=== PATIENT | female | born 1945 | race Caucasian/White ===

== ENCOUNTER → 2016-07-05 | Outpatient (CLI) | payer OTHER ==
[~2016-07-05] MED LIST: ASPI-435 PO; B-COTAB18 PO; CALCTAB5 PO; CLC100X PO; FRS/40 PO; POLY335019 PO; [UNRECOGNIZED DRUG - CODE] TOP
[2016-07-05 10:35] LABS: BLOOD UREA NITROGEN 13 mg/dl (7-18); BUN/CREATININE RATIO 16.9 (10-20); CALCIUM 8.6 mg/dl (8.5-10.1); CARBON DIOXIDE 31 mmol/L (21-32); CHLORIDE 105 mmol/L (98-107); CREATININE 0.76 mg/dl (0.60-1.20); GLUCOSE 93 mg/dl (70-99); POTASSIUM 4.2 mmol/L (3.5-5.1); SODIUM 140 mmol/L (136-145)
[2016-07-05 10:38] LABS: CHOLESTEROL 146 mg/dl (0-200); CHOLESTEROL/HDL RATIO 2.6; HDL CHOLESTEROL 56 mg/dl; LDL CHOLESTEROL CALCULATED 78 mg/dl; TRIGLYCERIDES 59 mg/dl (0-150); VERY LOW DENSITY LIPOPROT CALC 12 mg/dl
== END | disposition home or self-care (01) ==
LOC: C.LAB1850 08:55
PROVIDERS: ATTEND Internal Medicine
DX: Z00.00 Encounter for general adult medical examination without abnormal findings (principal); Z11.59 Encounter for screening for other viral diseases; E78.5 Hyperlipidemia, unspecified; I50.30 Unspecified diastolic (congestive) heart failure

== ENCOUNTER → 2016-08-03 | Outpatient (CLI) | payer OTHER ==
[2016-08-03 16:45] LABS: HEMATOCRIT 34.6 % (37-47); MEAN CELL VOLUME 89.9 fL (80-100); MEAN CORPUSCULAR HEMOGLOBIN 29.9 pg (25-34); MEAN CORPUSCULAR HGB CONC 33.2 g/dl (32-36); MEAN PLATELET VOLUME 10.8 fL (7.4-10.4); PLATELET COUNT 315 K/uL (130-400); RED BLOOD COUNT 3.85 M/uL (4.2-5.4); WHITE BLOOD COUNT 7.12 K/uL (4.8-10.8)
[2016-08-03 17:04] LABS: BLOOD UREA NITROGEN 10 mg/dl (7-18); BUN/CREATININE RATIO 12.9 (10-20); CALCIUM 8.9 mg/dl (8.5-10.1); CARBON DIOXIDE 33 mmol/L (21-32); CHLORIDE 104 mmol/L (98-107); CREATININE 0.76 mg/dl (0.60-1.20); GLUCOSE 95 mg/dl (70-99); POTASSIUM 3.9 mmol/L (3.5-5.1); SODIUM 139 mmol/L (136-145)
[2016-08-03 17:54] LABS: BASO ABS # 0.06 K/uL (0-0.2); BASOPHIL % 0.9 %; COMPLETE YES; EOSINOPHIL % 0.9 %; LARGE GRANULAR LYMPH ABSOLUTE 2.12 K/uL; LARGE GRANULAR LYMPHOCYTE % 29.8 %; LYMPH ABS # 1.31 K/uL (1.2-3.4); LYMPHOCYTE % 18.4 %; NEUTROPHILS % 36.8 %
== END | disposition home or self-care (01) ==
LOC: C.LAB1850 15:06
PROVIDERS: ATTEND Physician Assistant
DX: I50.30 Unspecified diastolic (congestive) heart failure (principal)

== ENCOUNTER → 2016-09-16 | Outpatient (CLI) | payer OTHER ==
--- NOTE | 2016-09-16 13:27 | MAMMOGRAPHY REPORT ---
BILATERAL DIGITAL SCREENING MAMMOGRAM WITH CAD: 09/16/2016 CLINICAL HISTORY: Routine screening. TECHNIQUE: Current study was also evaluated with a Computer Aided Detection (CAD) system. Bilateral CC and MLO views were obtained. COMPARISON: Comparison is made to exams dated: 09/11/2015 mammogram, 09/09/2014 mammogram, 09/06/2013 justen mogram, 09/05/2012 mammogram, 09/05/2011 mammogram, and 09/01/2010 mammogram - [facility] . BREAST COMPOSITION: The tissue of both breasts is heterogeneously dense, which may obscure small mas ses. FINDINGS: There is a 10 mm mass within the right 6:00 breast, for which spot compression tomosynthes is views and possible breast ultrasound are recommended for further evaluation. The remainder of both breasts are stable compared to prior exams, without suspicious masses, calcific ations, or areas of architectural distortion noted. IMPRESSION: ACR BI-RADS CATEGORY 0: INCOMPLETE EVALUATION: NEED ADDITIONAL IMAGING EVALUATION Right 6:00 breast mass, for which additional imaging evaluation is recommended. The patient will be called to schedule an appointment. Approximately 10% of breast cancers are not detected with mammography. A negative mammographic report should not delay biopsy if a clinically suggestive mass is present. Lissett Fraire M.D. ah/:09/16/2016 10:49:54 [employer] Manager: Bisi PASTOR(Emperatriz)(M), [facility] letter sent: Addl Imaging 0 BI-RADS Code: ACR BI-RADS Category 0: Incomplete Evaluation: Need Additional Imaging Evaluation
== END | disposition home or self-care (01) ==
LOC: C.MAMM 09:58
PROVIDERS: ATTEND Obstetrics & Gynecology
DX: Z12.31 Encounter for screening mammogram for malignant neoplasm of breast (principal); N63 Unspecified lump in breast

== ENCOUNTER → 2016-09-30 | Outpatient (CLI) | payer OTHER ==
--- NOTE | 2016-09-30 12:31 | MAMMOGRAPHY REPORT ---
UNILATERAL RIGHT DIGITAL DIAGNOSTIC MAMMOGRAM TOMOSYNTHESIS AND TARGETED RIGHT ULTRASOUND: 09/30/2016 CLINICAL HISTORY: Callback from screening mammogram for right breast mass. TECHNIQUE: Breast tomosynthesis in addition to standard 2D mammography was performed. Spot compress ion right CC and MLO 2-D and tomosynthesis images were obtained. COMPARISON: Comparison is made to exams dated: 09/16/2016 mammogram, 09/11/2015 mammogram, 09/09/2014 ma mmogram, 09/06/2013 mammogram, 09/05/2012 mammogram, and 09/05/2011 mammogram - [facility]. BREAST COMPOSITION: The tissue of the right breast is heterogeneously dense, which may obscure small masses. FINDINGS: Spot compression views of the right breast demonstrate an oval partially circumscribed and partially obscured 10 mm mass within the right 6:00 breast. Targeted ultrasound was performed of the area of the mammographic mass. In the right 6:30 periareola r region, there is an oval circumscribed anechoic mass with posterior acoustic enhancement, measuring 9 x 7 x 9 mm. This corresponds with the mammographic mass and is consistent with a benign simple cy st. IMPRESSION: ACR BI-RADS CATEGORY 2: BENIGN, TARGETED ULTRASOUND ACR BI-RADS CATEGORY 2: BENIGN The new mammographic mass corresponds with a benign 9 mm simple cyst in the right breast at 6:30 on u ltrasound. There is no mammographic or targeted sonographic evidence of malignancy. A 1 year screeni ng mammogram is recommended. The patient has been verbally notified of the results. Approximately 10% of breast cancers are not detected with mammography. A negative mammographic report should not delay biopsy if a clinically suggestive mass is present. Lissett Fraire M.D. /:09/30/2016 08:55:49 Master Machinist: Maia PASTOR(Emperatriz)(M), [facility] letter sent: Normal 1/2 BI-RADS Code: ACR BI-RADS Category 2: Benign Ultrasound BI-RADS: ACR BI-RADS Category 2: Benign
== END | disposition home or self-care (01) ==
LOC: C.MAMM 08:31
PROVIDERS: ATTEND Obstetrics & Gynecology
DX: N63 Unspecified lump in breast (principal)

== ENCOUNTER → 2017-03-07 | Outpatient (CLI) | payer OTHER ==
[2017-03-07 12:25] LABS: MEAN CELL VOLUME 90.9 fL (80-100); MEAN CORPUSCULAR HEMOGLOBIN 30.3 pg (25-34); MEAN CORPUSCULAR HGB CONC 33.3 g/dl (32-36); MEAN PLATELET VOLUME 10.6 fL (7.4-10.4); PLATELET COUNT 345 K/uL (130-400); RED BLOOD COUNT 3.96 M/uL (4.2-5.4); WHITE BLOOD COUNT 7.42 K/uL (4.8-10.8)
[2017-03-07 14:05] LABS: BLOOD UREA NITROGEN 9 mg/dl (7-18); BUN/CREATININE RATIO 14.3 (10-20); CALCIUM 8.9 mg/dl (8.5-10.1); CARBON DIOXIDE 30 mmol/L (21-32); CHLORIDE 102 mmol/L (98-107); CREATININE 0.67 mg/dl (0.60-1.20); GLUCOSE 91 mg/dl (70-99); POTASSIUM 3.9 mmol/L (3.5-5.1); SODIUM 134 mmol/L (136-145)
== END | disposition home or self-care (01) ==
LOC: C.LAB1850 11:13
PROVIDERS: ATTEND Internal Medicine Cardiovascular Disease
DX: I11.0 Hypertensive heart disease with heart failure (principal); I50.32 Chronic diastolic (congestive) heart failure; R00.2 Palpitations; I47.1 Supraventricular tachycardia

== ENCOUNTER → 2017-08-07 | Outpatient (CLI) | payer OTHER ==
[2017-08-07 12:08] LABS: HEMATOCRIT 35.8 % (37-47); HEMOGLOBIN 12.3 g/dL (12.0-16.0); MEAN CORPUSCULAR HEMOGLOBIN 30.2 pg (25-34); MEAN CORPUSCULAR HGB CONC 34.4 g/dl (32-36); MEAN PLATELET VOLUME 9.9 fL (7.4-10.4); PLATELET COUNT 338 K/uL (130-400); RED CELL DISTRIBUTION WIDTH CV 14.1 % (11.5-14.5); RED CELL DISTRIBUTION WIDTH SD 45.4 fL (36.4-46.3); WHITE BLOOD COUNT 7.28 K/uL (4.8-10.8)
[2017-08-07 12:38] LABS: ALBUMIN 3.7 gm/dl (3.4-5.0); ALT/SGPT 30 U/L (12-78); AST/SGOT 28 U/L (15-37); BLOOD UREA NITROGEN 11 mg/dl (7-18); CALCIUM 8.5 mg/dl (8.5-10.1); CARBON DIOXIDE 29 mmol/L (21-32); CHOLESTEROL 156 mg/dl (0-200); CREATININE 0.72 mg/dl (0.60-1.20); GLUCOSE 87 mg/dl (70-99); POTASSIUM 4.2 mmol/L (3.5-5.1); SODIUM 135 mmol/L (136-145)
[2017-08-07 12:41] LABS: ALKALINE PHOSPHATASE 88 U/L (45-117); LDL CHOLESTEROL CALCULATED 91 mg/dl; TOTAL PROTEIN 7.4 gm/dl (6.4-8.2)
== END | disposition home or self-care (01) ==
LOC: C.LABBC 11:11
PROVIDERS: ATTEND Internal Medicine Cardiovascular Disease
DX: K90.0 Celiac disease (principal); E78.5 Hyperlipidemia, unspecified

== ENCOUNTER 2019-09-19 15:08 | Inpatient (IN) ==
[2019-09-19 15:39] LABS: Basophils # (auto) 0.04 K/uL (0-0.2); Basophils % (auto) 0.5 %; Eosinophils # (auto) 0.05 K/uL (0-0.5); Eosinophils % (auto) 0.6 %; Hematocrit (blood only) 37.6 % (37-47); Hemoglobin 12.7 g/dL (12.0-16.0); Immature Granulocytes # (auto) 0.01 K/uL (0.00-0.02); Immature Granulocytes % (auto) 0.1 %; Lymphocytes # (auto) 3.85 K/uL (1.2-3.4); Lymphocytes % (auto) 49.2 %; Mean Corpuscular Hemoglobin 30.2 pg (25-34); Mean Corpuscular Hgb Conc 33.8 g/dL (32-36); Mean Corpuscular Volume 89.3 fL (80-100); Mean Platelet Volume 10.2 fL (7.4-10.4); Monocytes # (auto) 0.86 K/uL (0.11-0.59); Neutrophils # (auto) 3.02 K/uL (1.4-6.5); Neutrophils % (auto) 38.6 %; Platelet Count 275 K/uL (130-400); RDW Coefficient of Variation 14.7 % (11.5-14.5); Red Blood Count 4.21 M/uL (4.2-5.4); White Blood Count 7.83 K/uL (4.8-10.8)
--- NOTE | 2019-09-19 15:52 | XRay Report ---
SINGLE VIEW CHEST CLINICAL HISTORY: Atypical chest pain. FINDINGS: An AP, portable, upright chest radiograph is compared to chest x-ray and chest CT dated 08/02. The examination is degraded by portable technique and patient rotation. The heart is mildly e nlarged noting atherosclerotic calcification of the thoracic aorta. The pulmonary vasculature is nonc ongested. Chronic interstitial thickening is similar to previous. No airspace consolidation or large pleural effusion is identified. No pneumothorax is seen. The skeletal structures are osteopenic. Assisted Living Nursing Director trena posttraumatic and postoperative change is noted in the left proximal humerus. IMPRESSION: No acute cardiopulmonary abnormality. ACT 112: Negative or not required by law. Electronically signed by: Michael Smith M.D. 09/19/2019 3:50 PM
[2019-09-19 15:53] LABS: INR 1.1 (0.9-1.1); Partial Thromboplastin Ratio 1.1; Partial Thromboplastin Time 30.4 Seconds (21.0-31.0); Prothrombin Time 11.4 Seconds (9.0-12.0)
[2019-09-19 15:57] LABS: Alanine Aminotransferase 21 U/L (12-78); Albumin Level 3.5 gm/dl (3.4-5.0); Aspartate Aminotransferase 18 U/L (15-37); BUN Creatinine Ratio 13.9 (10-20); Blood Urea Nitrogen 13 mg/dl (7-18); Calcium 8.5 mg/dl (8.5-10.1); Carbon Dioxide 28 mmol/L (21-32); Chloride 101 mmol/L (98-107); Est GFR (African American) 68.4; Glucose 106 mg/dl (70-99); Sodium 134 mmol/L (136-145)
[2019-09-19 16:02] LABS: Albumin Globulin Ratio 0.9 (0.9-2); Alkaline Phosphatase 95 U/L (45-117); Bilirubin,Total 0.3 mg/dl (0.2-1); Total Protein 7.5 gm/dl (6.4-8.2); Troponin I < 0.015 ng/ml (0-0.045)
--- NOTE | 2019-09-19 16:34 | Emergency Department Note ---
History of Present Illness General Chief Complaint: Cardiac Assessment Stated Complaint: CHEST PRESSURE,SOB,HX AFIB Time Seen by Provider: 09/19/19 15:25 Source: patient Mode of arrival: ambulatory Limitations: no limitations History of Present Illness Provider Complaint: chest pain This is a 74-year-old female who presents to the ED with a chief complaint of chest pressure and shortness of breath with exertion. She states that she is also been sleeping more and seems to be exhausted, per her daughter. The sym ptoms have been ongoing for the past week or more. She also states that her heart rate was running low. She does have a history of A. fib and is on apixaban. The patient has no other specific complaints at this time. Denies recent illness or fevers. She is currently not having any significant symptoms. Home Medications Home Medications Medication Instructions Recorded Confirmed Type docusate sodium 300 mg PO QAM 04/15/18 09/10/19 History vitamin B complex 1 tab PO QAM 04/15/18 09/10/19 History cyanocobalamin (vitamin B-12) 1,000 mcg PO QAM tab 11/01/18 09/10/19 History 1,000 mcg tablet,extended release estradiol 1 patch TOPICAL YARBROUGH 04/09/19 09/10/19 History furosemide 40 mg tablet 40 mg PO DAILY PRN #30 tab 05/06/19 09/10/19 Rx Shaklee Mindworks 2 tab PO QAM 06/08/19 09/10/19 History calcium carbonate [Calcium 600] 1,200 mg PO QAM 06/08/19 09/10/19 History cholecalciferol (vitamin D3) 1,000 unit PO QAM 06/08/19 09/10/19 History [Vitamin D3] metoprolol succinate 50 mg PO QAM 06/08/19 09/10/19 History flecainide 50 mg tablet 50 mg PO Q12H tab 06/19/19 09/10/19 History apixaban 5 mg tablet 5 mg PO BID #90 tab 08/19/19 09/10/19 Rx escitalopram oxalate [Lexapro] 5 mg PO HS 08/22/19 09/10/19 History Durezol 1 drp OPL BID 08/29/19 09/10/19 History Prolensa 1 drp OPL QAM 08/29/19 09/10/19 History ciprofloxacin HCl 1 drp OPL QID 08/29/19 09/10/19 History Allergies Allergy/AdvReac Type Severity Reaction Status Date / Time amoxicillin AdvReac Intermediate YEAST Verified 09/10/19 06:58 INFECTION Cephalosporins AdvReac Intermediate YEAST Verified 09/10/19 06:58 INFECTION clavulanic acid AdvReac Intermediate YEAST Verified 09/10/19 06:58 INFECTION prednisone AdvReac Intermediate ANXIETY Verified 09/10/19 06:58 Past Med/Surg History Medical History (Updated 09/19/19 @ 17:12 by Jacobo Kidd) Atrial fibrillation cardioversion x2, most recent 04/2019. follows w/ Dr. Delacruz, on Eliquis Atrial tachycardia CD (celiac disease) does not follow gluten-free diet CHF (congestive heart failure) diastolic Degenerative disc disease Diverticulitis (Resolved 2013) Dyslipidemia History of carpal tunnel syndrome (Resolved) Hypertension Low back pain with sciatica Mitral regurgitation Ocular migraine Osteoarthritis Surgical History History of arthroscopy of right shoulder ROTATOR CUFF REPAIR History of cardiac cath 2016 @ [facility] NO STENTS History of cardioversion x2--last 04/29/2019 @ [facility] (successful) History of carpal tunnel release BILATERAL History of cholecystectomy History of colonoscopy History of esophagogastroduodenoscopy (EGD) History of foot surgery bilt feet "to straighten toes" History of fracture of left shoulder PLATE AND SCREWS History of hysterectomy JOANNA WITH BSO History of incision and drainage right foot History of tonsillectomy History of total knee replacement LEFT X2 RIGHT X1 Family History Mother Family hx of colon cancer Colorectal cancer Brother Family history of diabetes mellitus Prostate cancer Father Dissecting aortic aneurysm Myocardial infarction Denies family history of Ovarian cancer Breast cancer Social History Preferred Language: Sudanese Communication Ability: Effective 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 Technician Required: No Beliefs That Will Affect Care: None marital status: Current Living Situation: Spouse Current Living Situation Comment: Lives with current occupational status: retired Feels Safe at Home: Yes Smoking Status: Former smoker Tobacco Type: cigarettes ; Second Hand Exposure: No ; Hx Alcohol Use: Yes Alcohol type: wine Hx Substance Use: Yes substance use type: does not use Childhood Exposure to Second-Hand Smoke: No Dental Care, Regularly: Yes Seatbelt Use: always Sunscreen Use: Yes Review of Systems A total of 10 systems reviewed and were otherwise negative Physical Exam Vital Signs Vital Signs - 24 hr 09/19/19 15:10 09/19/19 15:38 09/19/19 16:30 Temperature 36.5 C Temperature Source Oral Pulse Rate 50 L 45 L Pulse Rate [Apical] 49 L Respiratory Rate 18 16 14 Respiratory Effort / Characteristics Non-Labored Spontaneous Non-Labored Spontaneous Respiratory Depth Normal Normal Respiratory Pattern Regular Blood Pressure 155/67 H 163/56 H Blood Pressure [Left Arm] 159/62 H Blood Pressure Mean 96 87 Blood Pressure Mean [Left Arm] 94 Blood Pressure Position Sitting Blood Pressure Position [Left Arm] Sitting Pulse Oximetry 97 97 98 Oxygen Delivery Method Room Air Room Air Sepsis Recent Fever Within 48 Hours No Sepsis New/Unexplained Change in Mental Status No Sepsis Action Taken by Nursing No Action Required CONSTITUTIONAL/VITAL SIGNS: Reviewed / noted above. GENERAL: Non-toxic in appearance. INTEGUMENTARY: Warm, dry, and [place]. HEAD: Normocephalic. EYES: without scleral icterus or trauma. ENT/OROPHARYNX: clear and moist. LYMPHADENOPATHY/NECK: Is supple without lymphadenopathy or meningismus. RESPIRATORY: Lungs clear and equal. CARDIOVASCULAR: Regular rate and rhythm. GI/ABDOMEN: Soft and nontender. No organomegaly or pulsatile mass. No rebound or guarding. Normal bowel sounds. EXTREMITIES: Warm and well perfused. BACK: No CVA tenderness. NEUROLOGICAL: Intact without focal deficits. PSYCHIATRIC: normal affect. MUSCULOSKELETAL: Normally developed with good muscle tone. TRIAGE NURSING DOCUMENTATION REVIEWED. Medical Decision Making Differential Diagnosis + pneumothorax, + unstable angina pectoris, + atypical chest pain, + chest pain, + cardiac ischemia, + myocarditis, + costochondritis, + pleurisy, + pulmonary embolism and + pneumonia Medical Records Attestation: I reviewed the patient's medical records. Home Medications Current Medication List: was personally reviewed by me Laboratory Data Attestation: I reviewed the patient's lab results. Result diagrams: 09/19/19 15:30 09/19/19 15:30 Labs: Lab Results 09/19/19 09/19/19 09/19/19 Range/Units 15:30 15:30 15:30 WBC 7.83 (4.8-10.8) K/uL RBC 4.21 (4.2-5.4) M/uL Hgb 12.7 (12.0-16.0) g/dL Hct 37.6 (37-47) % MCV 89.3 (80-100) fL MCH 30.2 (25-34) pg MCHC 33.8 (32-36) g/dL RDW Std Deviation 48.0 H (36.4-46.3) fL RDW Coeff of Malinda 14.7 H (11.5-14.5) % Plt Count 275 (130-400) K/uL MPV 10.2 (7.4-10.4) fL Immature Gran % (Auto) 0.1 % Neut % (Auto) 38.6 % Lymph % (Auto) 49.2 % Bartholomew % (Auto) 11.0 % Eos % (Auto) 0.6 % Baso % (Auto) 0.5 % Immature Gran # (Auto) 0.01 (0.00-0.02) K/uL Neut # (Auto) 3.02 (1.4-6.5) K/uL Lymph # (Auto) 3.85 H (1.2-3.4) K/uL Bartholomew # (Auto) 0.86 H (0.11-0.59) K/uL Eos # (Auto) 0.05 (0-0.5) K/uL Baso # (Auto) 0.04 (0-0.2) K/uL PT 11.4 (9.0-12.0) Seconds INR 1.1 (0.9-1.1) APTT 30.4 (21.0-31.0) Seconds PTT Ratio 1.1 Sodium 134 L (136-145) mmol/L Potassium 4.0 (3.5-5.1) mmol/L Chloride 101 (98-107) mmol/L Carbon Dioxide 28 (21-32) mmol/L Anion Gap 5.0 (3-11) BUN 13 (7-18) mg/dl Creatinine 0.95 (0.6-1.2) mg/dl Est Cr Clr Drug Dosing Not Reportable Est GFR ( Amer) 68.4 Est GFR (Non-Af Amer) 59.0 BUN/Creatinine Ratio 13.9 (10-20) Glucose 106 H (70-99) mg/dl Calcium 8.5 (8.5-10.1) mg/dl Total Bilirubin 0.3 (0.2-1) mg/dl AST 18 (15-37) U/L ALT 21 (12-78) U/L Alkaline Phosphatase 95 (45-117) U/L Troponin I < 0.015 (0-0.045) ng/ml Total Protein 7.5 (6.4-8.2) gm/dl Albumin 3.5 (3.4-5.0) gm/dl Globulin 4.0 (2.5-4.0) gm/dl Albumin/Globulin Ratio 0.9 (0.9-2) Imaging Data Chest x-ray: Radiologist's impression: Chest x-ray: No acute disease ECG Data Attestation: I personally reviewed and interpreted this ECG as follows: Indication: chest pain Rate (beats per minute): 52 Findings: no PVC, no ST elevation and no prolonged QT Blood Pressure Blood Pressure Findings: Elevated blood pressure Blood Pressure Disposition: further management by hospitalist LILIAN Narrative This is a 74-year-old female who presents to the ED with a chief complaint of chest pressure and shortness of breath with exertion. She states that she is also been sleeping more and seems to be exhausted, per her daughter. The symptoms have been ongoing for the past week or more. She also states that her heart rate was running low. She does have a history of A. fib and is on apixaban. The patient has no other specific complaints at this time. Denies recent illness or fevers. She is currently not having any significant symptoms. The patient's vital signs reveal hypertension. Her physical exam was unremarkable. CBC and chemistry panel was normal. Troponin was negative. Chest x-ray was negative for acute disease and EKG shows a sinus bradycardia at a rate of 52. Because his symptoms seem to be primarily exertional in nature, unstable angina is a possibility. The patient will be seen by the hospitalist for further evaluation and care. Cardiac monitoring: An order was placed for continuous cardiac monitoring. The monitor shows a rate of 55 with sinus rhythm. Impression & Plan Angina pectoris, unstable Discharge Plan Visit Data Chief Complaint: Cardiac Assessment Stated Complaint: CHEST PRESSURE,SOB,HX AFIB ED Provider: Cirilo Alejandro Discharge Problem: Angina pectoris, unstable Patient Disposition: Being Evaluated by Hospitalist Forms Stand Alone Forms: My [facility] Prescriptions Prescriptions: No Action Eliquis 5 mg tablet 5 mg PO BID Qty: 90 RF: 3 furosemide [Lasix] 40 mg tablet 40 mg PO DAILY PRN (Reason: Fluid Retention) Qty: 30 RF: 2 flecainide 50 mg tablet 50 mg PO Q12H RF: 0 cyanocobalamin (vitamin B-12) 1,000 mcg tablet extended release 1,000 mcg PO QAM RF: 0 escitalopram oxalate [Lexapro] 5 mg tablet 5 mg PO HS RF: 0 calcium carbonate [Calcium 600] 600 mg calcium (1,500 mg) Tablet 1,200 mg PO QAM RF: 0 cholecalciferol (vitamin D3) [Vitamin D3] 25 mcg (1,000 unit) Capsule 1,000 unit PO QAM RF: 0 Shaklee Mindworks tablet 2 tab PO QAM RF: 0 metoprolol succinate 50 mg tablet extended release 24 hr 50 mg PO QAM RF: 0 docusate sodium 100 mg Capsule 300 mg PO QAM RF: 0 vitamin B complex Tablet 1 tab PO QAM RF: 0 estradiol 0.075 mg/24 hr patch weekly 1 patch topical YARBROUGH RF: 0 ciprofloxacin HCl 0.3 % drops 1 drp OPL QID RF: 0 Durezol 0.05 % drops 1 drp OPL BID RF: 0 Prolensa 0.07 % Drops 1 drp OPL QAM RF: 0 Referrals Referrals: Sravan Figueroa MD [Primary Care Provider] -
--- NOTE | 2019-09-19 16:54 | History & Physical Report ---
Date of Service September 19, 2019 Assessment & Plan (1) Pleuritic chest pain: patient c/o pleuritic chest pain and dyspnea on exertion (see HPI). o2 sats are high 90s in room air. no features to suggest pericarditis. although she is on eliquis will obtain CTA chest in the rare event she has PEs despite the eliquis. if CTA chest is negative - musculoskeletal? (does have mild tenderness to palpation on exam today). the pain is not typical for ischemia (and her 2016 heart cath was free of any CAD). (2) Persistent headaches: chronic, daily headaches for nearly 6 months. recent MRI brain ordered by neurology due to recent head trauma as well as memory/cognitive issues showed trace SDH a CT head was then obtained the following day and the SDH could not be seen due to ongoing headaches and the recent MRI brain showing the SDH will recheck a head CT today seeing she takes anticoagulation check sed rate/crp to r/o temporal arteritis if work-up is negative - etiology? could consider prophylaxis with low-dose elavil or similar or, could increase lexapro to 10mg daily (3) Head injury: s/p fall on 08/29/[address] head/cervical spine/chest/abd/pelvis for fractures or injuries MRI brain did reveal tiny SDH which could not be seen on CT easily could have had concussion from her fall and head injury ongoing symptoms (headaches, feeling poorly, etc) could be post-concussive syndrome but patient reports headaches were present months before the fall (4) SDH (subdural hematoma): see discussion above tiny on recent MRI brain obtain repeat head CT today (5) Fatigue: TSH wnl B12 wnl CBC without anemia (although has predominance of lymphocytes on differential - significance uncertain) could severe bradycardia be causing her fatigue? will HOLD the metoprolol and allow HR to rise to see if she feels better with such if organic w/u is negative -- depression?? in light of celiac disease status and NOT following gluten-free diet check iron studies (6) Weight loss: patient reports 20-30 pounds of such but weights in our EMR do not substantiate that either way will have nutrition see while here (7) Bradycardia: could be contributing to fatigue hold beta silvano ok to continue flecanide place on tele allow HR to return to normal; then reassess patient (8) Atrial fibrillation status post cardioversion: in NSR at time of admission today (sinus radha). HR about 40. HOLD beta silvano. cont flecainide. cont eliquis as long as head CT is stable. (9) Mild cognitive impairment: recent dx by Dr Cleaning, neurology. TSH, B12 wnl. check B1 level am. underlying depression, if present, could be contributing to memory issues. consider up-titration of lexapro. (10) DVT prophylaxis: eliquis BID PT evaluation daughter updated at bedside place on observation status History of Present Illness Chief Complaint: fatigue Primary Care Provider: Sravan Figueroa MD 74yo female with history of a.fib on flecainide and eliquis who presents with worsening fatigue for 2 weeks, shortness of breath for 2 days with activity, pleuritic chest discomfort with deep breaths, cough, and a "shooting pain under the breast [left]". The latter is also worsened by deep breaths. No LE edema. She has had lack of appetite for about 1 month. No loss of taste or smell. No fevers or chills. Occasional sweat but nothing drenching. She has had recent weight loss - over 6 weeks - lost 20-30 pounds. This is unintentional. Has not taken any lasix of late. She has been getting headaches for about 6 months. They are across the forehead and faith region. They are nearly every day. She had a recent head injury with resulting tiny SDH but headaches have not been worse since that injury. Allergies Allergy/AdvReac Type Severity Reaction Status Date / Time amoxicillin AdvReac Intermediate YEAST Verified 09/19/19 17:37 INFECTION Cephalosporins AdvReac Intermediate YEAST Verified 09/19/19 17:37 INFECTION clavulanic acid AdvReac Intermediate YEAST Verified 09/19/19 17:37 INFECTION prednisone AdvReac Intermediate ANXIETY Verified 09/19/19 17:37 Home Medications Home Medications Medication Instructions Recorded Confirmed Type docusate sodium 300 mg PO QAM 04/15/18 09/19/19 History vitamin B complex 1 tab PO QAM 04/15/18 09/19/19 History cyanocobalamin (vitamin B-12) 1,000 mcg PO QAM tab 11/01/18 09/19/19 History 1,000 mcg tablet,extended release estradiol 1 patch TOPICAL YARBROUGH 04/09/19 09/19/19 History furosemide 40 mg tablet 40 mg PO DAILY PRN #30 tab 05/06/19 09/19/19 Rx Shaklee [facility]works 2 tab PO QAM 06/08/19 09/19/19 History calcium carbonate [Calcium 600] 1,200 mg PO QAM 06/08/19 09/19/19 History cholecalciferol (vitamin D3) 1,000 unit PO QAM 06/08/19 09/19/19 History [Vitamin D3] metoprolol succinate 50 mg PO QAM 06/08/19 09/19/19 History flecainide 50 mg tablet 50 mg PO Q12H tab 06/19/19 09/19/19 History apixaban 5 mg tablet 5 mg PO BID #90 tab 08/19/19 09/19/19 Rx escitalopram oxalate [Lexapro] 5 mg PO HS 08/22/19 09/19/19 History Durezol 1 drp OPB BID 08/29/19 09/19/19 History ciprofloxacin HCl 1 drp OPB QID 08/29/19 09/19/19 History Past Med/Surg History Medical History (Updated 09/19/19 @ 22:30 by Jacobo Kidd) Atrial fibrillation cardioversion x2, most recent 04/2019. follows w/ Dr. Delacruz, on Eliquis Atrial fibrillation status post cardioversion Atrial tachycardia CD (celiac disease) does not follow gluten-free diet CHF (congestive heart failure) diastolic Degenerative disc disease Diverticulitis (Resolved 2013) Dyslipidemia History of carpal tunnel syndrome (Resolved) Hypertension Low back pain with sciatica Mitral regurgitation Ocular migraine Osteoarthritis Surgical History History of arthroscopy of right shoulder ROTATOR CUFF REPAIR History of cardiac cath 2016 @ [facility] NO STENTS History of cardioversion x2--last 04/29/2019 @ [facility] (successful) History of carpal tunnel release BILATERAL History of cholecystectomy History of colonoscopy History of esophagogastroduodenoscopy (EGD) History of foot surgery bilt feet "to straighten toes" History of fracture of left shoulder PLATE AND SCREWS History of hysterectomy JOANNA WITH BSO History of incision and drainage right foot History of tonsillectomy History of total knee replacement LEFT X2 RIGHT X1 Family History Mother Family hx of colon cancer Colorectal cancer Brother Family history of diabetes mellitus Prostate cancer Father Dissecting aortic aneurysm Myocardial infarction Denies family history of Ovarian cancer Breast cancer Social History (Updated 09/19/19 @ 17:17 by Jacobo Kidd) Preferred Language: Persian Communication Ability: Effective Sample Processor Required: No Beliefs That Will Affect Care: None marital status: Current Living Situation: Spouse Current Living Situation Comment: Lives with current occupational status: retired Other Information That Helps Us Care for You: 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; 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[employer]; 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 Feels Safe at Home: Yes Safety Concerns: Feels Safe At This Time Smoking Status: Former smoker Tobacco Type: cigarettes ; Years Smoked: 4 ; Do You Dip or Chew Tobacco: No ; Smoking End Date: 1971 ; Second Hand Exposure: No ; Tobacco Cessation Education Requested by Patient: No Hx Alcohol Use: Yes Alcohol type: wine Alcohol Intake Frequency: Rarely Hx Substance Use: No Childhood Exposure to Second-Hand Smoke: No Dental Care, Regularly: Yes Seatbelt Use: always Sunscreen Use: Yes Review of Systems Constitutional: + fatigue, + anorexia and + weight loss; no fever and no chills Eyes: no worsening vision Ear, Nose, Mouth, Throat: no nasal congestion, no sore throat and no dysphagia Respiratory: + dyspnea on exertion and + pain on inspiration Cardiovascular: as per Subjective / HPI; no orthopnea and no edema Gastrointestinal: + constipation; no vomiting Genitourinary: no dysuria Musculoskeletal: + neck pain Integumentary: no rash Neurologic: no localized weakness and no loss of sensation Psychiatric: + depression and + anxiety Endocrine: no diabetes Hematologic / Lymphatic: + unexplained weight loss Physical Exam Constitutional: no acute distress and no altered mental status Eyes: PERRL ENMT: external ear and nose normal, oropharynx normal patient tender over right temporal artery; no tenderness over left temporal artery Neck: trachea midline, no thyromegaly Respiratory: normal respiratory effort, lungs clear to auscultation Cardiovascular: Rate/Rhythm: regular rhythm and + bradycardic Heart Sounds: normal S1 and normal S2; no murmur Vessels: posterior tibial pulses present and dorsalis pedis pulses present; no JVD Extremities: no edema Chest (Breasts): Additional Comments: mild tenderness to palpation over left lower chest near the costal margin Gastrointestinal (Abdomen): normal bowel sounds, soft, nontender, no hepatosplenomegaly Musculoskeletal: no cyanosis or clubbing, extremities motor strength 5/5 Skin: no rashes, warm and dry Neurologic: deep tendon reflexes 2+ bilaterally and moves all extremities Psychiatric: Orientation: alert and oriented x 3 Affect: + anxious affect Lymphatic: no cervical lymphadenopathy Results & Data Results & Data ([facility]) Vital Signs (Past 12 Hours) Vital Signs Temp Pulse Pulse Resp BP BP Pulse Ox 09/19/19 16:30 45 L 14 163/56 H 98 09/19/19 15:38 49 L 16 159/62 H 97 09/19/19 15:10 36.5 C 50 L 18 155/67 H 97 Laboratory Results Laboratory Results - last 24 hr 09/19/19 09/19/19 09/19/19 15:30 15:30 15:30 WBC 7.83 RBC 4.21 Hgb 12.7 Hct 37.6 MCV 89.3 MCH 30.2 MCHC 33.8 RDW Std Deviation 48.0 H RDW Coeff of Malinda 14.7 H Plt Count 275 MPV 10.2 Immature Gran % (Auto) 0.1 Neut % (Auto) 38.6 Lymph % (Auto) 49.2 [place] % (Auto) 11.0 Eos % (Auto) 0.6 Baso % (Auto) 0.5 Immature Gran # (Auto) 0.01 Neut # (Auto) 3.02 Lymph # (Auto) 3.85 H [place] # (Auto) 0.86 H Eos # (Auto) 0.05 Baso # (Auto) 0.04 ESR PT 11.4 INR 1.1 APTT 30.4 PTT Ratio 1.1 Sodium 134 L Potassium 4.0 Chloride 101 Carbon Dioxide 28 Anion Gap 5.0 BUN 13 Creatinine 0.95 Est Cr Clr Drug Dosing Not Reportable Est GFR ( Amer) 68.4 Est GFR (Non-Af Amer) 59.0 BUN/Creatinine Ratio 13.9 Glucose 106 H Calcium 8.5 Iron Transferrin Transferrin % Sat Ferritin Total Bilirubin 0.3 AST 18 ALT 21 Alkaline Phosphatase 95 Troponin I < 0.015 C-Reactive Protein Total Protein 7.5 Albumin 3.5 Globulin 4.0 Albumin/Globulin Ratio 0.9 TSH 09/19/19 09/19/19 09/19/19 15:30 15:30 15:30 WBC RBC Hgb Hct MCV MCH MCHC RDW Std Deviation RDW Coeff of Malnida Plt Count MPV Immature Gran % (Auto) Neut % (Auto) Lymph % (Auto) [place] % (Auto) Eos % (Auto) Baso % (Auto) Immature Gran # (Auto) Neut # (Auto) Lymph # (Auto) [place] # (Auto) Eos # (Auto) Baso # (Auto) ESR 8 PT INR APTT PTT Ratio Sodium Potassium Chloride Carbon Dioxide Anion Gap BUN Creatinine Est Cr Clr Drug Dosing Est GFR ( Amer) Est GFR (Non-Af Amer) BUN/Creatinine Ratio Glucose Calcium Iron Cancelled Transferrin Cancelled Transferrin % Sat Cancelled Ferritin Total Bilirubin AST ALT Alkaline Phosphatase Troponin I C-Reactive Protein < 0.29 Total Protein Albumin Globulin Albumin/Globulin Ratio TSH 09/19/19 15:30 WBC RBC Hgb Hct MCV MCH MCHC RDW Std Deviation RDW Coeff of Malinda Plt Count MPV Immature Gran % (Auto) Neut % (Auto) Lymph % (Auto) [place] % (Auto) Eos % (Auto) Baso % (Auto) Immature Gran # (Auto) Neut # (Auto) Lymph # (Auto) [place] # (Auto) Eos # (Auto) Baso # (Auto) ESR PT INR APTT PTT Ratio Sodium Potassium Chloride Carbon Dioxide Anion Gap BUN Creatinine Est Cr Clr Drug Dosing Est GFR ( Amer) Est GFR (Non-Af Amer) BUN/Creatinine Ratio Glucose Calcium Iron 61 Transferrin 263 Transferrin % Sat 16 Ferritin 28.3 Total Bilirubin AST ALT Alkaline Phosphatase Troponin I C-Reactive Protein Total Protein Albumin Globulin Albumin/Globulin Ratio TSH 0.982 Diagnostic Findings 1. cxr - no infiltrates 2. EKG - sinus bradycardia; no ST changes Code Status & VTE Plan Code Status full VTE Prophylaxis Plan VTE Prophylaxis will be ordered: Yes PG Care Time/CCT Total # of Minutes Spent Total Time Spent with Patient: Total time spent is greater than 50% in coordination of care (as documented) at patient's floor/unit and/or counseling patient: Coding Level of Care Code 49883 OBS Care - Level 3 Diagnoses Pleuritic chest pain R07.81 Persistent headaches R51 Head injury S09.90XS Encounter type: sequela SDH (subdural hematoma) S06.5X9A Fatigue R53.83 Fatigue type: unspecified Weight loss R63.4 Bradycardia R00.1 Atrial fibrillation status post cardioversion I48.91 Mild cognitive impairment G31.84 DVT prophylaxis Z29.9 (1) Fatigue Fatigue type: unspecified Qualified Code(s): R53.83 - Other fatigue (2) Head injury Encounter type: sequela Qualified Code(s): S09.90XS - Unspecified injury of head, sequela
--- NOTE | 2019-09-19 17:18 | Electrocardiogram Report ---
Test Reason : Blood Pressure : / mmHG Vent. Rate : 052 BPM Atrial Rate : 052 BPM P-R Int : 178 ms QRS Dur : 092 ms QT Int : 450 ms P-R-T Axes : 060 027 043 degrees QTc Int : 418 ms Sinus bradycardia Possible Left atrial enlargement Borderline ECG When compared with ECG of 29-AUG-2019 15:40, No significant change was found Confirmed by Gus Powers ([id number]) on 09/19/2019 5:17:53 PM Referred By: Confirmed By:Leon Powers
[2019-09-19] MEDS ORDERED: OPTIRAY 320 125ml IV PRN (18:40)
--- NOTE | 2019-09-19 19:19 | CT Scan Report ---
CT angio chest PE protocol CT DOSE: 285.30 mGy.cm HISTORY: pleuritic chest pain TECHNIQUE: Multiaxial CT images of the chest were performed following the intravenous administration of contrast to evaluate the pulmonary arteries. Maximal intensity projection images were also obtaine d. A dose lowering technique was utilized adhering to the principles of ALARA. COMPARISON STUDY: None. FINDINGS: There is a normal caliber thoracic aorta with no evidence for dissection. There is no evide nce for pulmonary embolus. No pleural effusions. No pneumothorax. The liver and spleen are unremarkab le. No mediastinal or hilar lymphadenopathy. The central airways are patent. The lungs are clear. IMPRESSION: No evidence for pulmonary embolus. Lungs are considered clear. Minimal chronic interstitial change un altered from the prior study. ACT 112: Negative or not required by law. The above report was generated using voice recognition software. It may contain grammatical, syntax or spelling errors. Electronically signed by: Dirk Quezada M.D. 09/19/2019 7:17 PM
--- NOTE | 2019-09-19 19:20 | CT Scan Report ---
CT head/brain wo con CT DOSE: 537.48 mGy.cm HISTORY: headaches; recent SDH on MRI TECHNIQUE: Multiaxial CT images of the head were performed without the use of intravenous contrast. A dose lowering technique was utilized adhering to the principles of ALARA. Comparison: 09/06/2019 Findings: The paranasal sinuses and mastoid air cells are clear. The calvarium and skull base are int act. The ventricles and sulci are within normal limits. There is no mass, hematoma, midline shift, or acute infarct. Impression: No acute intracranial abnormality. ACT 112: Negative or not required by law. The above report was generated using voice recognition software. It may contain grammatical, syntax or spelling errors. Electronically signed by: Dirk Quezada M.D. 09/19/2019 7:19 PM
[2019-09-19 19:21] LABS: Ferritin 28.3 ng/ml (8-388); Thyroid Stimulating Hormone 0.982 uIu/ml (0.300-4.500)
[2019-09-19] MEDS ORDERED: ONDANSETRON INJ 2 MG/ML 2 ML VIAL IV PRN (19:25)
[2019-09-19] MEDS: ESCITALOPRAM OXALATE 10 MG TAB PO SCH (21:34)
[2019-09-19] MEDS: APIXABAN 5 MG TABLET PO SCH (21:34)
[2019-09-19] MEDS: DUREZOL~ORDER AWAITING ACTION SCH (21:34)
[2019-09-19] MEDS: FLECAINIDE ACETATE 100 MG TABLET PO SCH (21:36)
[2019-09-19] MEDS: ACETAMINOPHEN 325 MG TAB PO PRN (23:41)
[2019-09-20] MEDS: DUREZOL~ORDER AWAITING ACTION SCH ×4 (00:17→23:49)
[2019-09-20 08:21] LABS: Calcium 9.1 mg/dl (8.5-10.1); Creatinine Clr Calc Pharmacy 83.4 ml/min; Est GFR (African American) 97.3; Est GFR (Non-African American) 83.9; Potassium 4.3 mmol/L (3.5-5.1)
[2019-09-20] MEDS: CALCIUM CARBONATE 1250MG TAB PO SCH (09:06)
[2019-09-20] MEDS: APIXABAN 5 MG TABLET PO SCH ×2 (09:06→21:14)
[2019-09-20] MEDS: FLECAINIDE ACETATE 100 MG TABLET PO SCH ×2 (09:06→21:14)
[2019-09-20] MEDS: DOCUSATE SODIUM 100 MG CAP PO SCH (09:06)
[2019-09-20] MEDS: CHOLECALCIFEROL 1,000 UNITS 25 MCG TAB PO SCH (09:07)
[2019-09-20] MEDS: ACETAMINOPHEN 325 MG TAB PO PRN ×2 (09:10→13:22)
[2019-09-20] MEDS: ESCITALOPRAM OXALATE 10 MG TAB PO SCH (21:15)
--- NOTE | 2019-09-20 22:44 | Hospitalist Progress Note ---
Date of Service September 20, 2019 Assessment & Plan (1) Pleuritic chest pain: Pain appears to be musculoskeletal. the pain is not typical for ischemia (and her 2016 heart cath was free of any CAD). (2) Persistent headaches: chronic, daily headaches for nearly 6 months. recent MRI brain ordered by neurology due to recent head trauma as well as memory/cognitive issues showed trace SDH a CT head was then obtained the following day and the SDH could not be seen due to ongoing headaches and the recent MRI brain showing the SDH will recheck a head CT today seeing she takes anticoagulation History appear to be mirgaines: as she has photophobia and phnophobia. if work-up is negative - etiology? could consider prophylaxis with low-dose elavil or similar or, could increase lexapro to 10mg daily (3) Head injury: s/p fall on 08/29/[address] head/cervical spine/chest/abd/pelvis for fractures or injuries MRI brain did reveal tiny SDH which could not be seen on CT easily could have had concussion from her fall and head injury: perhaps cuasing a migraine. ongoing symptoms (headaches, feeling poorly, etc) could be post-concussive syndrome but patient reports headaches were present months before the fall (4) SDH (subdural hematoma): see discussion above tiny on recent MRI brain obtain repeat head CT today (5) Fatigue: TSH wnl B12 wnl CBC without anemia (although has predominance of lymphocytes on differential - significance uncertain) could severe bradycardia be causing her fatigue? will HOLD the metoprolol and allow HR to rise to see if she feels better with such if organic w/u is negative -- depression?? in light of celiac disease status and NOT following gluten-free diet check iron studies (6) Weight loss: patient reports 20-30 pounds of such but weights in our EMR do not substantiate that either way will have nutrition see while here (7) Bradycardia: could be contributing to fatigue given symptoms, may need pacemaker. hold beta silvano ok to continue flecanide place on tele allow HR to return to normal; then reassess patient (8) Atrial fibrillation status post cardioversion: in NSR at time of admission today (sinus radha). HR about 40. HOLD beta silvano. cont flecainide. cont eliquis as long as head CT is stable. (9) Mild cognitive impairment: recent dx by Dr Cleaning, neurology. TSH, B12 wnl. check B1 level am. underlying depression, if present, could be contributing to memory issues. consider up-titration of lexapro. (10) DVT prophylaxis: eliquis BID PT evaluation daughter updated on phone. Admission and Anticipated Discharge Date Admission Date: September 20, 2019 Subjective 74 yo female reports no new complaints. She states she gets headaches daily but severe enough to take tylenol about once a week. She states she gets dizzy every once in awhile even in bed. Nurse states she has bradycardia. Review of Systems Review of Systems: All systems reviewed & are unremarkable except as noted in HPI & below Physical Exam Physical Exam: Constitutional: no acute distress and no altered mental status Eyes: PERRL ENMT: external ear and nose normal, oropharynx normal patient tender over right temporal artery; no tenderness over left temporal artery Neck: trachea midline, no thyromegaly Respiratory: normal respiratory effort, lungs clear to auscultation Cardiovascular: Rate/Rhythm: regular rhythm and + bradycardic Heart Sounds: normal S1 and normal S2; no murmur Vessels: posterior tibial pulses present and dorsalis pedis pulses present; no JVD Extremities: no edema Gastrointestinal (Abdomen): normal bowel sounds, soft, nontender, no hepatosplenomegaly Musculoskeletal: no cyanosis or clubbing, extremities motor strength 5/5 Skin: no rashes, warm and dry Neurologic: deep tendon reflexes 2+ bilaterally and moves all extremities Psychiatric: Orientation: alert and oriented x 3 Affect: + anxious affect Lymphatic: no cervical lymphadenopathy Results & Data Results & Data ([facility]) Vital Signs (Past 12 Hours) Vital Signs Temp Pulse Pulse Resp BP Pulse Ox 09/20/19 21:50 36.5 C 62 20 171/70 H 97 09/20/19 19:00 36.4 C L 67 20 135/63 92 09/20/19 18:35 53 L 09/20/19 11:16 36.5 C 42 L 17 148/70 H 95 PG Care Time/CCT Total # of Minutes Spent Total Time Spent with Patient: Total time spent is greater than 50% in coordination of care (as documented) at patient's floor/unit and/or counseling patient: Coding Level of Care Code 47187 Subseq Hosp Care Lvl 3 Diagnoses Pleuritic chest pain R07.81 Persistent headaches R51 Head injury S09.90XS Encounter type: sequela SDH (subdural hematoma) S06.5X9A Fatigue R53.83 Fatigue type: unspecified Weight loss R63.4 Bradycardia R00.1 Atrial fibrillation status post cardioversion I48.91 Mild cognitive impairment G31.84 DVT prophylaxis Z29.9 Time Spent (min) 35 (1) Fatigue Fatigue type: unspecified Qualified Code(s): R53.83 - Other fatigue (2) Head injury Encounter type: sequela Qualified Code(s): S09.90XS - Unspecified injury of head, sequela
[2019-09-21] MEDS: DOCUSATE SODIUM 100 MG CAP PO SCH (08:08)
[2019-09-21] MEDS: CALCIUM CARBONATE 1250MG TAB PO SCH (08:09)
[2019-09-21] MEDS: FLECAINIDE ACETATE 100 MG TABLET PO SCH ×2 (08:09→21:30)
[2019-09-21] MEDS: APIXABAN 5 MG TABLET PO SCH ×2 (08:09→21:24)
[2019-09-21] MEDS: CHOLECALCIFEROL 1,000 UNITS 25 MCG TAB PO SCH (08:10)
[2019-09-21] MEDS: ACETAMINOPHEN 325 MG TAB PO PRN (08:10)
[2019-09-21] MEDS: DUREZOL~ORDER AWAITING ACTION SCH (09:04)
[2019-09-21] MEDS: DUREZOL 0.05% OPL SCH ×2 (10:55→21:30)
[2019-09-21] MEDS: EYE OPL SCH ×5 (10:55→21:30)
[2019-09-21] MEDS: PROLENSA 0.07% OPL SCH ×3 (10:56→21:27)
--- NOTE | 2019-09-21 11:25 | Electrocardiogram Report ---
Test Reason : Blood Pressure : / mmHG Vent. Rate : 049 BPM Atrial Rate : 049 BPM P-R Int : 172 ms QRS Dur : 098 ms QT Int : 450 ms P-R-T Axes : 070 051 063 degrees QTc Int : 406 ms Sinus bradycardia Otherwise normal ECG When compared with ECG of 19-SEP-2019 15:21, T wave inversion no longer evident in Anterior leads Confirmed by Sravan Apodaca ([id number]) on 09/21/2019 11:25:25 AM Referred By: Sravan Figueroa Confirmed By:Sravan Apodaca
[2019-09-21] MEDS: ESCITALOPRAM OXALATE 10 MG TAB PO SCH (21:24)
--- NOTE | 2019-09-21 23:06 | Hospitalist Progress Note ---
Date of Service September 21, 2019 Assessment & Plan (1) Pleuritic chest pain: Pain appears to be musculoskeletal. the pain is not typical for ischemia (and her 2016 heart cath was free of any CAD). (2) Persistent headaches: chronic, daily headaches for nearly 6 months. recent MRI brain ordered by neurology due to recent head trauma as well as memory/cognitive issues showed trace SDH a CT head was then obtained the following day and the SDH could not be seen due to ongoing headaches and the recent MRI brain showing the SDH will recheck a head CT today seeing she takes anticoagulation History appear to be mirgaines: as she has photophobia and phnophobia. Workup appears to be negative. will have patient keep a journal of her migraines. could consider prophylaxis with low-dose elavil or similar or, could increase lexapro to 10mg daily (3) Head injury: s/p fall on 08/29/[address] head/cervical spine/chest/abd/pelvis for fractures or injuries MRI brain did reveal tiny SDH which could not be seen on CT easily could have had concussion from her fall and head injury: perhaps cuasing a migraine. ongoing symptoms (headaches, feeling poorly, etc) could be post-concussive syndrome but patient reports headaches were present months before the fall. Will defer to followup with neurology to help with headaches as an outpatient. (4) SDH (subdural hematoma): see discussion above tiny on recent MRI brain obtain repeat head CT: negative. (5) Fatigue: TSH wnl B12 wnl CBC without anemia (although has predominance of lymphocytes on differential - significance uncertain) could severe bradycardia be causing her fatigue? will HOLD the metoprolol and allow HR to rise to see if she feels better with such. symptoms have improved, likely from the bradycardia. if organic w/u is negative -- depression?? in light of celiac disease status and NOT following gluten-free diet check iron studies (6) Weight loss: patient reports 20-30 pounds of such but weights in our EMR do not substantiate that either way will have nutrition see while here (7) Bradycardia: could be contributing to fatigue given symptoms, may need pacemaker. hold beta silvano ok to continue flecanide place on tele allow HR to return to normal; then reassess patient (8) Atrial fibrillation status post cardioversion: in NSR at time of admission today (sinus radha). HR about 40. HOLD beta silvano. cont flecainide. cont eliquis as long as head CT is stable. awaiting input from cardio. (9) Mild cognitive impairment: recent dx by Dr Cleaning, neurology. TSH, B12 wnl. check B1 level am. underlying depression, if present, could be contributing to memory issues. consider up-titration of lexapro. (10) DVT prophylaxis: eliquis BID PT evaluation daughter updated on phone. Admission and Anticipated Discharge Date Admission Date: September 20, 2019 Subjective Patient reports getting migraines and feeling dizzy prior to the migraines. She denies any other episodes of being dizzy. Review of Systems Review of Systems: All systems reviewed & are unremarkable except as noted in HPI & below Physical Exam Physical Exam: Constitutional: no acute distress and no altered mental status Eyes: PERRL ENMT: external ear and nose normal, oropharynx normal patient no longer tender over right temporal artery; no tenderness over left temporal artery Neck: trachea midline, no thyromegaly Respiratory: normal respiratory effort, lungs clear to auscultation Cardiovascular: Rate/Rhythm: regular rhythm and + bradycardic Heart Sounds: normal S1 and normal S2; no murmur Vessels: posterior tibial pulses present and dorsalis pedis pulses present; no JVD Extremities: no edema Gastrointestinal (Abdomen): normal bowel sounds, soft, nontender, no hepatosplenomegaly Musculoskeletal: no cyanosis or clubbing, extremities motor strength 5/5 Skin: no rashes, warm and dry Neurologic: deep tendon reflexes 2+ bilaterally and moves all extremities Psychiatric: Orientation: alert and oriented x 3 Affect: + anxious affect Lymphatic: no cervical lymphadenopathy Results & Data Results & Data ([facility]) Vital Signs (Past 12 Hours) Vital Signs Temp Pulse Pulse Resp BP Pulse Ox 09/21/19 22:49 36.4 C L 61 20 154/63 H 95 09/21/19 20:00 36.5 C 50 L 20 162/64 H 96 09/21/19 16:43 47 L 09/21/19 14:59 36.4 C L 59 L 18 152/67 H 98 09/21/19 11:26 36.6 C 45 L 18 155/57 H 95 PG Care Time/CCT Total # of Minutes Spent Total Time Spent with Patient: Total time spent is greater than 50% in coordination of care (as documented) at patient's floor/unit and/or counseling patient: Coding Level of Care Code 80748 Subseq Hosp Care Lvl 3 Diagnoses Pleuritic chest pain R07.81 Persistent headaches R51 Head injury S09.90XS Encounter type: sequela SDH (subdural hematoma) S06.5X9A Fatigue R53.83 Fatigue type: unspecified Weight loss R63.4 Bradycardia R00.1 Atrial fibrillation status post cardioversion I48.91 Mild cognitive impairment G31.84 DVT prophylaxis Z29.9 (1) Fatigue Fatigue type: unspecified Qualified Code(s): R53.83 - Other fatigue (2) Head injury Encounter type: sequela Qualified Code(s): S09.90XS - Unspecified injury of head, sequela
[2019-09-22] MEDS: FLECAINIDE ACETATE 100 MG TABLET PO SCH (08:14)
[2019-09-22] MEDS: APIXABAN 5 MG TABLET PO SCH (08:14)
[2019-09-22] MEDS: CALCIUM CARBONATE 1250MG TAB PO SCH (08:14)
[2019-09-22] MEDS: CHOLECALCIFEROL 1,000 UNITS 25 MCG TAB PO SCH (08:16)
[2019-09-22] MEDS: ACETAMINOPHEN 325 MG TAB PO PRN (08:16)
[2019-09-22] MEDS: DOCUSATE SODIUM 100 MG CAP PO SCH (08:16)
[2019-09-22] MEDS: EYE OPL SCH ×2 (08:18→08:19)
[2019-09-22] MEDS: DUREZOL 0.05% OPL SCH (08:18)
[2019-09-22] MEDS: PROLENSA 0.07% OPL SCH (08:19)
--- NOTE | 2019-09-22 12:46 | Cardiology Consultation ---
Date of Consultation September 22, 2019 Assessment & Plan (1) Bradycardia: -heart rate has improved with discontinuation of metoprolol. (2) Atrial fibrillation status post cardioversion: -remains in normal sinus rhythm on flecainide. -continue apixaban. (3) Chest pain syndrome: -musculoskeletal in origin. (4) Hypertension: -may need to add amlodipine for better systolic blood pressure control. (5) Chronic diastolic congestive heart failure: -compensated at this time. -uses Lasix 40 mg p.r.n. weight gain. History of Present Illness Attending Physician: Kamari Alegria History of Present Illness Mrs. Maxwell is a 74-year-old female admitted with musculoskeletal chest pain, fatigue, and bradycardia. This consultation was ordered to assist in cardiac management. Of note, patient typically follows with Dr. Delacruz in the outpatient setting. The patient was in her usual state of health until approximately 2 weeks prior to presentation. At that time, she began to note significant fatigue. Approximately 2 days prior to presentation, she noted shortness of breath, pleuritic chest discomfort, and tenderness of the left chest wall. On presentation, the patient was significantly bradycardic with a heart rate in the upper 40s and low 50s. Her metoprolol dose was decreased, and eventually discontinued. Since that time, her heart rate has slowly increased and is now in the upper 50s and low 60s. The patient has noticed some improvement in her fatigue. The patient carries a history of paroxysmal atrial fibrillation. She was cardioverted back in June 2018. Most recently, she was started on flecainide and electrically cardioverted in April 2019. Review of the record notes that she was bradycardic as far back as an EKG done on June 21, 2018. Currently, patient is resting comfortably in bed without complaints. Past medical and surgical history 1. Hypertension 2. Hypercholesterolemia 3. Paroxysmal atrial fibrillation 4. Paroxysmal SVT 5. Chronic diastolic CHF 6. Mild to moderate mitral regurgitation 7. Celiac disease 8. Obstructive sleep apnea 9. Migraine headaches 10. DJD 11. Hysterectomy 12. Cholecystectomy 13. Rotator cuff repair 14. Knee replacement surgery 15. Tonsillectomy 16. 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 Allergies Allergy/AdvReac Type Severity Reaction Status Date / Time amoxicillin AdvReac Intermediate YEAST Verified 09/19/19 17:37 INFECTION Cephalosporins AdvReac Intermediate YEAST Verified 09/19/19 17:37 INFECTION clavulanic acid AdvReac Intermediate YEAST Verified 09/19/19 17:37 INFECTION prednisone AdvReac Intermediate ANXIETY Verified 09/19/19 17:37 Home Medications Home Medications Medication Instructions Recorded Confirmed Type docusate sodium 300 mg PO QAM 04/15/18 09/19/19 History vitamin B complex 1 tab PO QAM 04/15/18 09/19/19 History cyanocobalamin (vitamin B-12) 1,000 mcg PO QAM tab 11/01/18 09/19/19 History 1,000 mcg tablet,extended release estradiol 1 patch TOPICAL YARBROUGH 04/09/19 09/19/19 History furosemide 40 mg tablet 40 mg PO DAILY PRN #30 tab 05/06/19 09/19/19 Rx Shaklee Mindworks 2 tab PO QAM 06/08/19 09/19/19 History calcium carbonate [Calcium 600] 1,200 mg PO QAM 06/08/19 09/19/19 History cholecalciferol (vitamin D3) 1,000 unit PO QAM 06/08/19 09/19/19 History [Vitamin D3] metoprolol succinate 50 mg PO QAM 06/08/19 09/19/19 History flecainide 50 mg tablet 50 mg PO Q12H tab 06/19/19 09/19/19 History apixaban 5 mg tablet 5 mg PO BID #90 tab 08/19/19 09/19/19 Rx escitalopram oxalate [Lexapro] 5 mg PO HS 08/22/19 09/19/19 History Durezol 1 drp OPB BID 08/29/19 09/19/19 History ciprofloxacin HCl 1 drp OPB QID 08/29/19 09/19/19 History Patient History Medical History (Updated 09/22/19 @ 12:43 by Sravan Apodaca MD) Atrial fibrillation cardioversion x2, most recent 04/2019. follows w/ taras Bassquis Atrial fibrillation status post cardioversion Atrial tachycardia CD (celiac disease) does not follow gluten-free diet CHF (congestive heart failure) diastolic Degenerative disc disease Diverticulitis (Resolved 2013) Dyslipidemia History of carpal tunnel syndrome (Resolved) Hypertension Low back pain with sciatica Mitral regurgitation Ocular migraine Osteoarthritis Surgical History History of arthroscopy of right shoulder ROTATOR CUFF REPAIR History of cardiac cath 2016 @ [facility] NO STENTS History of cardioversion x2--last 04/29/2019 @ [facility] (successful) History of carpal tunnel release BILATERAL History of cholecystectomy History of colonoscopy History of esophagogastroduodenoscopy (EGD) History of foot surgery bilt feet "to straighten toes" History of fracture of left shoulder PLATE AND SCREWS History of hysterectomy JOANNA WITH BSO History of incision and drainage right foot History of tonsillectomy History of total knee replacement LEFT X2 RIGHT X1 Family History Mother Family hx of colon cancer Colorectal cancer Brother Family history of diabetes mellitus Prostate cancer Father Dissecting aortic aneurysm Myocardial infarction Denies family history of Ovarian cancer Breast cancer Social History (Updated 09/19/19 @ 17:17 by Jacobo Kidd) Preferred Language: Korean Communication Ability: Effective Double Corner Cutter Required: No Beliefs That Will Affect Care: None marital status: Current Living Situation: Spouse Current Living Situation Comment: Lives with current occupational status: retired Other Information That Helps Us Care for You: 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; 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[employer]; 3 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 HEENT exam is negative. Neck is supple with full carotid upstrokes. There are no carotid bruits. Jugular venous pressure is flat at 90. There is no thyromegaly. Cardiovascular exam reveals a regular rhythm with a normal S1 and S2. No S3, S4, or murmurs are noted. Left chest is tender to palpation. Lungs are clear without rales, rhonchi, or wheezes. Abdomen is soft and nontender without bruits. Extremities reveal intact radial artery and posterior tibial pulses bilaterally. There is no peripheral edema. Results & Data ([facility]) Vital Signs (Past 12 Hours) Vital Signs Temp Pulse Pulse Resp BP Pulse Ox 09/22/19 11:41 36.4 C L 50 L 18 159/65 H 96 09/22/19 08:00 52 L 09/22/19 07:30 52 L 09/22/19 07:16 36.3 C L 58 L 18 158/65 H 97 09/22/19 04:00 36.4 C L 59 L 20 146/55 H 95 09/22/19 02:27 66 Laboratory Results CBC notes hemoglobin of 12.7, hematocrit 37.6, white count 7.8, and platelet count of [id number]. Electrolytes note the sodium of 136, potassium 4.3, chloride 103, bicarb 28, BUN 9, creatinine 0.71, glucose of 86. Troponin I levels less than 0.015. CT scan of chest is negative. EKG notes sinus bradycardia at 50 beats per minute Diagnostic Findings CT scan of chest is negative. EKG notes sinus bradycardia at 50 beats per minute. alarm security or surveillance monitor notes sinus rhythm with a heart rate of approximately 60 beats per minute. No atrial fibrillation. PG Care Time/CCT Total # of Minutes Spent Total Time Spent with Patient: Total time spent is greater than 50% in coor dination of care (as documented) at patient's floor/unit and/or counseling patient: Coding Level of Care Code 85711 Initial Inpt Care Lvl 3 Diagnoses Bradycardia R00.1 Atrial fibrillation status post cardioversion I48.91 Chest pain syndrome R07.9 Hypertension I10 Chronic diastolic congestive heart failure I50.32
[2019-09-25 15:38] LABS: SARS CoV2 Ab IgG NEGATIVE
--- NOTE | 2019-09-29 13:30 | Discharge Summary ---
Date of Service September 22, 2019 Admission HPI Per Admitting Provider 74yo female with history of a.fib on flecainide and eliquis who presents with worsening fatigue for 2 weeks, shortness of breath for 2 days with activity, pleuritic chest discomfort with deep breaths, cough, and a "shooting pain under the breast [left]". The latter is also worsened by deep breaths. No LE edema. She has had lack of appetite for about 1 month. No loss of taste or smell. No fevers or chills. Occasional sweat but nothing drenching. She has had recent weight loss - over 6 weeks - lost 20-30 pounds. This is unintentional. Has not taken any lasix of late. She has been getting headaches for about 6 months. They are across the forehead and evangelical region. They are nearly every day. She had a recent head injury with resulting tiny SDH but headaches have not been worse since that injury. Principal Diagnosis pleuritic chest pain Discharge Exam Constitutional: no acute distress and no altered mental status Eyes: PERRL ENMT: external ear and nose normal, oropharynx normal patient no longer tender over right temporal artery; no tenderness over left temporal artery Neck: trachea midline, no thyromegaly Respiratory: normal respiratory effort, lungs clear to auscultation Cardiovascular: Rate/Rhythm: regular rhythm and + bradycardic Heart Sounds: normal S1 and normal S2; no murmur Vessels: posterior tibial pulses present and dorsalis pedis pulses present; no JVD Extremities: no edema Gastrointestinal (Abdomen): normal bowel sounds, soft, nontender, no hepatosplenomegaly Musculoskeletal: no cyanosis or clubbing, extremities motor strength 5/5 Skin: no rashes, warm and dry Neurologic: deep tendon reflexes 2+ bilaterally and moves all extremities Psychiatric: Orientation: alert and oriented x 3 Lymphatic: no cervical lymphadenopathy Discharge Data Allergies Allergy/AdvReac Type Severity Reaction Status Date / Time amoxicillin AdvReac Intermediate YEAST Verified 09/25/19 16:01 INFECTION Cephalosporins AdvReac Intermediate YEAST Verified 09/25/19 16:01 INFECTION clavulanic acid AdvReac Intermediate YEAST Verified 09/25/19 16:01 INFECTION prednisone AdvReac Intermediate ANXIETY Verified 09/25/19 16:01 Consultations 09/19/19 16:36 ED Decision to Admit Stat 09/20/19 17:52 Consult Cardiology Routine Ordered Studies 09/19/19 17:51 CT angio chest PE protocol Stat CT head/brain wo con Stat Hospital Course (1) Pleuritic chest pain: Pain appears to be musculoskeletal. the pain is not typical for ischemia (and her 2016 heart cath was free of any CAD). (2) Persistent headaches: chronic, daily headaches for nearly 6 months. recent MRI brain ordered by neurology due to recent head trauma as well as memory/cognitive issues showed trace SDH a CT head was then obtained the following day and the SDH could not be seen due to ongoing headaches and the recent MRI brain showing the SDH will recheck a head CT today seeing she takes anticoagulation History appear to be mirgaines: as she has photophobia and phnophobia. Workup appears to be negative. will have patient keep a journal of her migraines. could consider prophylaxis with low-dose elavil or similar or, could increase lexapro to 10mg daily. will defer to PCP. (3) Head injury: s/p fall on 08/29/[address] head/cervical spine/chest/abd/pelvis for fractures or injuries MRI brain did reveal tiny SDH which could not be seen on CT easily could have had concussion from her fall and head injury: perhaps cuasing a migraine. ongoing symptoms (headaches, feeling poorly, etc) could be post-concussive syndrome but patient reports headaches were present months before the fall. Will defer to followup with neurology to help with headaches as an outpatient. (4) SDH (subdural hematoma): see discussion above tiny on recent MRI brain obtain repeat head CT: negative. (5) Fatigue: TSH wnl B12 wnl CBC without anemia (although has predominance of lymphocytes on differential - significance uncertain) could severe bradycardia be causing her fatigue? will HOLD the metoprolol and allow HR to rise to see if she feels better with such. symptoms have improved, likely from the bradycardia. if organic w/u is negative -- depression?? in light of celiac disease status and NOT following gluten-free diet check iron studies (6) Weight loss: patient reports 20-30 pounds of such but weights in our EMR do not substantiate that either way will have nutrition see while here (7) Bradycardia: could be contributing to fatigue given symptoms, may need pacemaker. after holding beta silvano, HR improved. ok to continue flecanide consulted cardio, pacemaker not indicated as HR improved. (8) Atrial fibrillation status post cardioversion: in NSR at time of admission today (sinus radha). HR about 40. HOLD beta silvano. cont flecainide. cont eliquis as long as head CT is stable. (9) Mild cognitive impairment: recent dx by Dr Cleaning, neurology. TSH, B12 wnl. check B1 level am. underlying depression, if present, could be contributing to memory issues. consider up-titration of lexapro. (10) DVT prophylaxis: eliquis BID PT evaluation daughter updated on phone. Total Time Total Time Spent Total Time Spent (In Minutes): 32 Total Time Includes: Examination of the Patient, Discharge Planning and Medication Reconciliation Discharge Plan Discharge Items Patient Disposition: Home - Self-Care Reason For Visit: PLEURITIC CHEST PAIN,FATIGUE,HEADACHES Discharge Diagnosis: chest pain, fatigue Activity: Resume your previous activity Non-emergency contact: Primary Care Provider Call non-emergency contact if: you have any medication questions Follow-up/Referrals: Pro,Sravan Diaz MD [Primary Care Provider] - Diet: Regular and Gluten Free Addtl Attending Provider Instructions: You were seen for fatigue and dizziness. We stopped your beta silvano. You were seen by cardio, no need for pacemaker at this time. Perhaps you may be having migraines. will recommend followup with neurology for alternative treatment perhaps botox injections. will recommend PCP followup in 1-2 weeks please keep a diary of you headache and if you have dizziness within one hour of your headaches. Pending Studies at Discharge: No Stand-Alone Forms: My Showcase, Smoking Cessation Medications and DC Order Prescriptions: New acetaminophen 325 mg Tablet 650 mg PO Q4H PRN (Reason: pain) Qty: 30 RF: 0 Continued flecainide 50 mg tablet 50 mg PO Q12H RF: 0 cyanocobalamin (vitamin B-12) 1,000 mcg tablet extended release 1,000 mcg PO QAM RF: 0 calcium carbonate [Calcium 600] 600 mg calcium (1,500 mg) Tablet 1,200 mg PO QAM RF: 0 cholecalciferol (vitamin D3) [Vitamin D3] 25 mcg (1,000 unit) Capsule 1,000 unit PO QAM RF: 0 Shaklee Mindworks tablet 2 tab PO QAM RF: 0 docusate sodium 100 mg Capsule 300 mg PO QAM RF: 0 vitamin B complex Tablet 1 tab PO QAM RF: 0 estradiol 0.075 mg/24 hr patch weekly 1 patch topical YARBROUGH RF: 0 ciprofloxacin HCl 0.3 % drops 1 drp OPB QID RF: 0 Durezol 0.05 % drops 1 drp OPB BID RF: 0 Discontinued metoprolol succinate 50 mg tablet extended release 24 hr 50 mg PO QAM RF: 0 No Action Eliquis 5 mg tablet 5 mg PO BID Qty: 180 RF: 3 escitalopram oxalate [Lexapro] 5 mg tablet 5 mg PO HS Qty: 90 RF: 3 metoprolol succinate 25 mg tablet extended release 24 hr 12.5 mg PO DAILY Qty: 30 RF: 5 furosemide [Lasix] 40 mg tablet 40 mg PO DAILY PRN (Reason: Fluid Retention) Qty: 30 RF: 2 Discharge Orders: Discharge Order (Routine); Ordered 09/22/19 Ordered By: Kamari Alegria Admission Data Admit Date/Time: 09/20/19 17:53 Attending Provider: Kamari Alegria Admit Provider: Jacobo Kidd Primary Care Provider: Sravan Figueroa Other Providers: Sravan Apodaca Other Interventions: Discharge Summary Assessment (RN) Last Done: 09/22/19 14:12 DC Date/Time DO NOT enter until pt leaves facility: 09/22/19 15:10 Coding Level of Care Code D/C Day Management >30 mins Diagnoses Pleuritic chest pain R07.81 Persistent headaches R51 Head injury S09.90XS Encounter type: sequela SDH (subdural hematoma) S06.5X9A Fatigue R53.83 Fatigue type: unspecified Weight loss R63.4 Bradycardia R00.1 Atrial fibrillation status post cardioversion I48.91 Mild cognitive impairment G31.84 DVT prophylaxis Z29.9
== END 2019-09-22 15:10 | disposition home or self-care (01) | DRG 309 ==
LOC: ED 15:08 → 2W 15:08 → SUATTDRO 17:51 → 2W 18:34

== ENCOUNTER 2020-07-27 12:56 | Inpatient (IN) ==
[2020-07-27 13:36] LABS: Basophils # (auto) 0.05 K/uL (0-0.2); Basophils % (auto) 0.6 %; Eosinophils # (auto) 0.05 K/uL (0-0.5); Eosinophils % (auto) 0.6 %; Hematocrit (blood only) 36.4 % (37-47); Hemoglobin 12.9 g/dL (12.0-16.0); Immature Granulocytes # (auto) 0.01 K/uL (0.00-0.02); Immature Granulocytes % (auto) 0.1 %; Lymphocytes # (auto) 3.58 K/uL (1.2-3.4); Lymphocytes % (auto) 41.1 %; Mean Corpuscular Hemoglobin 31.3 pg (25-34); Mean Corpuscular Hgb Conc 35.4 g/dL (32-36); Mean Corpuscular Volume 88.3 fL (80-100); Mean Platelet Volume 10.3 fL (7.4-10.4); Monocytes % (auto) 10.3 %; Neutrophils # (auto) 4.13 K/uL (1.4-6.5); Neutrophils % (auto) 47.3 %; Platelet Count 362 K/uL (130-400); RDW Coefficient of Variation 14.6 % (11.5-14.5); RDW Standard Deviation 47.6 fL (36.4-46.3); Red Blood Count 4.12 M/uL (4.2-5.4); White Blood Count 8.72 K/uL (4.8-10.8)
[2020-07-27 13:48] LABS: INR 1.1 (0.9-1.1); Partial Thromboplastin Ratio 1.1; Partial Thromboplastin Time 29.7 Seconds (21.0-31.0); Prothrombin Time 10.7 Seconds (9.0-12.0)
--- NOTE | 2020-07-27 13:48 | XRay Report ---
XR chest 1V portable CLINICAL HISTORY: Atypical chest pain. COMPARISON STUDY: Chest radiograph and chest CT September 19, 2019. FINDINGS: Lung volumes are normal. Lungs are clear. There is no pneumothorax or pleural effusion. Car diac size is normal. Mediastinal contours are normal. There is no evidence for pulmonary edema. Incid ental note is made of a proximal left humeral internal fixation. Electronic device projects over the left heart. IMPRESSION: No acute cardiopulmonary findings. No change in appearance of the chest. ACT 112: Negative or not required by law. Electronically signed by: Kimani De M.D. 07/27/2020 1:47 PM
[2020-07-27 13:53] LABS: Albumin Level 3.7 gm/dl (3.4-5.0); Calcium 9.7 mg/dl (8.5-10.1); Creatinine Clr Calc Pharmacy 77.1 ml/min; Est GFR (African American) 91.9; Est GFR (Non-African American) 79.3; Potassium 3.9 mmol/L (3.5-5.1)
[2020-07-27 13:59] LABS: Albumin Globulin Ratio 0.9 (0.9-2); Bilirubin,Total 0.5 mg/dl (0.2-1); Globulin 3.9 gm/dl (2.5-4.0); Total Protein 7.6 gm/dl (6.4-8.2); Troponin I 1.91 ng/ml (0-0.045)
[2020-07-27] MEDS ORDERED: ASPIRIN CHEW 324 MG PO STA (14:02)
--- NOTE | 2020-07-27 14:07 | Emergency Department Note ---
Impression & Plan Non-ST elevation DE (NSTEMI), Chest pain ED Provider Note NAME: SPARKLE BROWN AGE: 75 SEX: F : 1945 ARRIVES VIA: Walk-In INFORMANT: Patient ED PROVIDER(S): Ruddy Solis DO CHIEF COMPLAINT: Chest pain HPI: Patient is a 35-year-old female who presents the ER for chest pain. Occurred last night around 7 while she was in [facility]. Lasted for about an hour and a half. She describes it as a sharp stabbing pain throughout her entire chest. She admits to some nausea yesterday with some shortness of breath. No belly pain nausea vomiting or diarrhea currently. No dysuria urgency or frequency. Does have a history of A. fib. She does take Eliquis. Has not missed any doses. Denies any history of any previous MIs. ROS: See above HPI for pertinent positives & negatives. A total of 10 systems reviewed and were otherwise negative. PAST MEDICAL HISTORY:See Below PAST SURGICAL HISTORY:See Below FAMILY HISTORY:See Below SOCIAL HISTORY:See Below HOME MEDICATIONS:See Below ALLERGIES:See Below VITALS:See Below PHYSICAL EXAMINATION: GENERAL: Sitting up in bed, alert, well appearing, well nourished, no distress, non-toxic EYE EXAM: normal conjunctiva OROPHARYNX: no exudate, no erythema, lips, buccal mucosa, and tongue normal and mucous membranes are moist NECK: supple, no nuchal rigidity, no adenopathy, non-tender LUNGS: Clear to auscultation. Normal chest wall mechanics HEART: no murmurs, S1 normal and S2 normal ABDOMEN: abdomen soft, non-tender, normo-active bowel sounds, no masses, no rebound or guarding. BACK: Back is symmetrical on inspection and there is no deformity, no midline tenderness, no CVA tenderness. SKIN: no rashes and no bruising UPPER EXTREMITIES: upper extremities are grossly normal. LOWER EXTREMITIES: No pitting edema. Calves are equal bilateral NEURO EXAM: Normal sensorium, cranial nerves II-XII grossly intact, normal speech, no gross weakness of arms, no gross weakness of legs. MEDICAL DECISION MAKING: Patient is a 75-year-old female with past medical history of diastolic heart failure and A. fib who presents the ER for chest pain referred in by cardiology. IV was established blood was obtained. Labs showed no significant leukocytosis or anemia. INR was unremarkable. BMP along with LFTs bilirubin was unremarkable. D-dimer was slightly elevated but would not be pursued as it is fairly consistent with age adjusted and she has been on a NOAC. She has not missed any doses. Troponin was elevated at 1.9. EKG was not significant change from previous. Discussed with Dr. Sravan Apodaca from not any cardiology. Agreed with admission and holding on heparin at this time. Discussed with with the hospitalist for further evaluation. Triage Nursing notes reviewed. Limited review of prior medical records performed Vital Signs: reviewed and remarkable for HTN Differential diagnosis: Differential diagnoses includes but is not limited to acute coronary syndrome, myocardial infarction, pericarditis, pulmonary embolus, aortic dissection, pneumonia, pneumothorax, musculoskeletal, shingles, esophageal. ER treatment provided: See below Diagnostics interpreted by me: ECG: Sinus bradycardia rate of 59 Normal axis PACs Nonspecific ST wave changes in the high lateral leads with Q waves QTC 433 Cardiac Monitoring: An order was placed for continuous cardiac monitoring. The monitor shows a rate of 62 with sinus rhythm. Laboratory studies: As stated above and show below. Imaging studies: Portable AP upright 1 view the chest shows no focal infiltrate pneumothorax Consultation(s): Discussed with the hospitalist for further evaluation Procedures: none Critical Care: None Past Med/Surg History Medical History Atrial fibrillation CD (celiac disease) Change in bowel movement Degenerative disc disease Diastolic CHF Diverticulitis (2013) Dyslipidemia History of carpal tunnel syndrome History of paroxysmal supraventricular tachycardia Hypertension Low back pain with sciatica Mitral regurgitation Ocular migraine Osteoarthritis Sleep apnea Surgical History History of arthroscopy of right shoulder History of cardiac cath History of cardioversion History of carpal tunnel release History of cataract surgery History of cholecystectomy History of colonoscopy History of esophagogastroduodenoscopy (EGD) History of foot surgery History of fracture of left shoulder History of hysterectomy History of incision and drainage History of tonsillectomy History of total knee replacement Status post placement of implantable loop recorder Family History Mother Family hx of colon cancer Colorectal cancer Brother Prostate cancer Family history of diabetes mellitus Father Dissecting aortic aneurysm Myocardial infarction Grandmother (Maternal) Stroke Other No family history of adverse response to anesthesia Denies family history of Ovarian cancer Breast cancer Social History Smoking Status: Former smoker Tobacco Type: Cigarettes Age Started Using Tobacco: 19; Age Quit Using Tobacco: 27; packs per day: 0.25; Years Smoked: 8; Second Hand Exposure: No; Hx Alcohol Use: No Hx Substance Use: No Preferred Language: Uzbek Communication Ability: Effective Ad Writer Required: No Beliefs That Will Affect Care: None marital status: Current Living Situation: Spouse Current Living Situation Comment: Lives with 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; 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[employer]; 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 Feels Safe at Home: Yes Childhood Exposure to Second-Hand Smoke: No Dental Care, Regularly: Yes Seatbelt Use: always Sunscreen Use: Yes Assistive Devices: Glasses Allergies Allergies Allergy/AdvReac Type Severity Reaction Status Date / Time latex Allergy Rash Verified 07/27/20 13:36 amoxicillin AdvReac Intermediate YEAST Verified 07/27/20 13:36 INFECTION Cephalosporins AdvReac Intermediate YEAST Verified 07/27/20 13:36 INFECTION clavulanic acid AdvReac Intermediate YEAST Verified 07/27/20 13:36 INFECTION prednisone AdvReac Intermediate ANXIETY Verified 07/27/20 13:36 Home Meds Home Medications Medication Instructions Recorded Confirmed docusate sodium 300 mg PO QAM 04/15/18 07/27/20 vitamin B complex 1 tab PO QAM 04/15/18 07/27/20 calcium carbonate [Calcium 600] 1,200 mg PO QAM 06/08/19 07/27/20 cholecalciferol (vitamin D3) 1,000 unit PO QAM 06/08/19 07/27/20 [Vitamin D3] coffee extract 50 mg-phosphatidyl 1 tab PO QAM tab 06/04/20 07/27/20 serine 50 mg chewable tablet metoprolol succinate 12.5 mg PO QAM 07/03/20 07/27/20 Previous Rx's Medication Instructions Recorded acetaminophen 650 mg PO Q4H PRN #30 tab 09/22/19 apixaban 5 mg tablet 5 mg PO BID #180 tab 09/23/19 estradiol 0.075 mg/24 hr weekly 1 patch TOPICAL YARBROUGH #4 ea 01/28/20 transdermal patch flecainide 100 mg tablet 100 mg PO Q12H #60 tab 03/06/20 furosemide 40 mg tablet 40 mg PO DAILY PRN #30 tab 05/07/20 CPAP Machine See Rx Instructions .ROUTE 05/20/20 .COMPLEX #1 ea memantine 5 mg tablet 5 mg PO BID #180 tab 06/04/20 Results & Data (ED) Vital Signs Vital Signs - 24 hr 07/27/20 13:02 07/27/20 13:35 07/27/20 13:39 Temperature 36.3 C L Temperature Source Temporal Artery Scan Pulse Rate 59 L 57 L Pulse Rate from SpO2 Sensor 55 L Respiratory Rate 20 18 Blood Pressure 157/66 H 157/79 H Blood Pressure Mean 96 105 Pulse Oximetry 97 97 98 Oxygen Delivery Method Room Air Room Air Sepsis Recent Fever Within 48 Hours No Sepsis New/Unexplained Change in Mental Status No Sepsis Action Taken by Nursing No Action Required 07/27/20 14:08 07/27/20 14:56 07/27/20 14:58 Temperature Temperature Source Pulse Rate 61 57 L 64 Pulse Rate from SpO2 Sensor 61 56 L 65 Respiratory Rate 20 16 16 Blood Pressure 160/67 H 173/64 H 168/78 H Blood Pressure Mean 98 100 108 Pulse Oximetry 97 99 97 Oxygen Delivery Method Sepsis Recent Fever Within 48 Hours Sepsis New/Unexplained Change in Mental Status Sepsis Action Taken by Nursing 07/27/20 15:00 07/27/20 15:03 07/27/20 15:17 Temperature Temperature Source Pulse Rate 66 63 59 L Pulse Rate from SpO2 Sensor 67 63 61 Respiratory Rate 20 20 17 Blood Pressure 167/76 H 169/76 H 147/103 H Blood Pressure Mean 106 107 117 Pulse Oximetry 96 97 96 Oxygen Delivery Method Sepsis Recent Fever Within 48 Hours Sepsis New/Unexplained Change in Mental Status Sepsis Action Taken by Nursing 07/27/20 15:21 07/27/20 15:31 07/27/20 15:45 Temperature Temperature Source Pulse Rate 64 57 L 53 L Pulse Rate from SpO2 Sensor 61 55 L 52 L Respiratory Rate 17 16 15 Blood Pressure 173/68 H 142/60 H 141/64 H Blood Pressure Mean 103 87 89 Pulse Oximetry 96 97 97 Oxygen Delivery Method Sepsis Recent Fever Within 48 Hours Sepsis New/Unexplained Change in Mental Status Sepsis Action Taken by Nursing 07/27/20 16:00 07/27/20 16:15 07/27/20 16:30 Temperature Temperature Source Pulse Rate 54 L 55 L 61 Pulse Rate from SpO2 Sensor 57 L 55 L 61 Respiratory Rate 17 18 16 Blood Pressure 138/58 L 128/76 142/60 H Blood Pressure Mean 84 93 87 Pulse Oximetry 96 96 94 Oxygen Delivery Method Sepsis Recent Fever Within 48 Hours Sepsis New/Unexplained Change in Mental Status Sepsis Action Taken by Nursing 07/27/20 16:40 07/27/20 16:45 07/27/20 17:00 Temperature Temperature Source Pulse Rate 55 L 51 L 61 Pulse Rate from SpO2 Sensor 52 L 51 L 57 L Respiratory Rate 19 16 18 Blood Pressure 127/61 114/52 L Blood Pressure Mean 83 72 Pulse Oximetry 93 94 97 Oxygen Delivery Method Sepsis Recent Fever Within 48 Hours Sepsis New/Unexplained Change in Mental Status Sepsis Action Taken by Nursing 07/27/20 17:15 07/27/20 17:30 07/27/20 17:50 Temperature Temperature Source Pulse Rate 53 L 61 55 L Pulse Rate from SpO2 Sensor 53 L Respiratory Rate 19 16 17 Blood Pressure 131/55 L 137/59 L Blood Pressure Mean 80 85 Pulse Oximetry 96 Oxygen Delivery Method Sepsis Recent Fever Within 48 Hours Sepsis New/Unexplained Change in Mental Status Sepsis Action Taken by Nursing 07/27/20 18:00 Temperature Temperature Source Pulse Rate Pulse Rate from SpO2 Sensor 57 L Respiratory Rate Blood Pressure 155/67 H Blood Pressure Mean 96 Pulse Oximetry 98 Oxygen Delivery Method Sepsis Recent Fever Within 48 Hours Sepsis New/Unexplained Change in Mental Status Sepsis Action Taken by Nursing Laboratory Data Result diagrams: 07/27/20 13:24 07/27/20 13:24 Lab Results 07/27/20 07/27/20 07/27/20 Range/Units 13:24 13:24 13:24 WBC 8.72 (4.8-10.8) K/uL RBC 4.12 L (4.2-5.4) M/uL Hgb 12.9 (12.0-16.0) g/dL Hct 36.4 L (37-47) % MCV 88.3 (80-100) fL MCH 31.3 (25-34) pg MCHC 35.4 (32-36) g/dL RDW Std Deviation 47.6 H (36.4-46.3) fL RDW Coeff of Malinda 14.6 H (11.5-14.5) % Plt Count 362 (130-400) K/uL MPV 10.3 (7.4-10.4) fL Immature Gran % (Auto) 0.1 % Neut % (Auto) 47.3 % Lymph % (Auto) 41.1 % [place] % (Auto) 10.3 % Eos % (Auto) 0.6 % Baso % (Auto) 0.6 % Neut # (Auto) 4.13 (1.4-6.5) K/uL Lymph # (Auto) 3.58 H (1.2-3.4) K/uL [place] # (Auto) 0.90 H (0.11-0.59) K/uL Eos # (Auto) 0.05 (0-0.5) K/uL Baso # (Auto) 0.05 (0-0.2) K/uL Immature Gran # (Auto) 0.01 (0.00-0.02) K/uL PT 10.7 (9.0-12.0) Seconds INR 1.1 (0.9-1.1) APTT 29.7 (21.0-31.0) Seconds PTT Ratio 1.1 D-Dimer (0-500) ug/L FEU Sodium 135 L (136-145) mmol/L Potassium 3.9 (3.5-5.1) mmol/L Chloride 102 (98-107) mmol/L Carbon Dioxide 28 (21-32) mmol/L Anion Gap 5.0 (3-11) BUN 10 (7-18) mg/dl Creatinine 0.74 (0.6-1.2) mg/dl Est Cr Clr Drug Dosing 77.1 ml/min Est GFR ( Amer) 91.9 Est GFR (Non-Af Amer) 79.3 BUN/Creatinine Ratio 13.0 (10-20) Glucose 85 (70-99) mg/dl Calcium 9.7 (8.5-10.1) mg/dl Total Bilirubin 0.5 (0.2-1) mg/dl AST 30 (15-37) U/L ALT 21 (12-78) U/L Alkaline Phosphatase 97 (45-117) U/L Troponin I 1.910 H* (0-0.045) ng/ml Total Protein 7.6 (6.4-8.2) gm/dl Albumin 3.7 (3.4-5.0) gm/dl Globulin 3.9 (2.5-4.0) gm/dl Albumin/Globulin Ratio 0.9 (0.9-2) COVID-19 Eval Order SARS-CoV-2 (PCR) (Negative) Influenza Type A (PCR) (Neg) Influenza Type B (PCR) (Neg) RSV (RT-PCR) (Neg) 07/27/20 07/27/20 07/27/20 Range/Units 13:24 14:24 14:24 WBC (4.8-10.8) K/uL RBC (4.2-5.4) M/uL Hgb (12.0-16.0) g/dL Hct (37-47) % MCV (80-100) fL MCH (25-34) pg MCHC (32-36) g/dL RDW Std Deviation (36.4-46.3) fL RDW Coeff of Malinda (11.5-14.5) % Plt Count (130-400) K/uL MPV (7.4-10.4) fL Immature Gran % (Auto) % Neut % (Auto) % Lymph % (Auto) % [place] % (Auto) % Eos % (Auto) % Baso % (Auto) % Neut # (Auto) (1.4-6.5) K/uL Lymph # (Auto) (1.2-3.4) K/uL [place] # (Auto) (0.11-0.59) K/uL Eos # (Auto) (0-0.5) K/uL Baso # (Auto) (0-0.2) K/uL Immature Gran # (Auto) (0.00-0.02) K/uL PT (9.0-12.0) Seconds INR (0.9-1.1) APTT (21.0-31.0) Seconds PTT Ratio D-Dimer 790 H* (0-500) ug/L FEU Sodium (136-145) mmol/L Potassium (3.5-5.1) mmol/L Chloride (98-107) mmol/L Carbon Dioxide (21-32) mmol/L Anion Gap (3-11) BUN (7-18) mg/dl Creatinine (0.6-1.2) mg/dl Est Cr Clr Drug Dosing ml/min Est GFR ( Amer) Est GFR (Non-Af Amer) BUN/Creatinine Ratio (10-20) Glucose (70-99) mg/dl Calcium (8.5-10.1) mg/dl Total Bilirubin (0.2-1) mg/dl AST (15-37) U/L ALT (12-78) U/L Alkaline Phosphatase (45-117) U/L Troponin I (0-0.045) ng/ml Total Protein (6.4-8.2) gm/dl Albumin (3.4-5.0) gm/dl Globulin (2.5-4.0) gm/dl Albumin/Globulin Ratio (0.9-2) COVID-19 Eval Order CovFluRsv at [facility] SARS-CoV-2 (PCR) NEGATIVE (Negative) Influenza Type A (PCR) Negative (Neg) Influenza Type B (PCR) Negative (Neg) RSV (RT-PCR) Negative (Neg) Administered Medications Heparin Sodium/Dextrose (Heparin Sodium/Dextrose) 25,000 units in 500 mls @ 27 mls/hr IV .[id number] MERLIN; Protocol Stop: 08/26/20 14:49 Last Admin: 07/27/20 15:01 Dose: 1,350 units/hr, 27 mls/hr Documented by: [id number] Cosigned by: [id number] Nitroglycerin (Nitroglycerin 2% Ointment 30gm Tube) 1 inch EXT Q6H MERLIN Stop: 08/26/20 15:14 Last Admin: 07/27/20 15:07 Dose: 1 inch Documented by: [id number] Discontinued Medications Aspirin (Aspirin Chew 324 Mg) 324 mg PO NOW STA Stop: 07/27/20 14:03 Last Admin: 07/27/20 14:24 Dose: 324 mg Documented by: [id number] Heparin Sodium/Dextrose (Heparin Iv Adult Wt-Based Standard *No* Bolus Protocol) 1 ea IV ONE STA; Protocol Stop: 07/27/20 14:47 Last Admin: 07/27/20 15:01 Dose: 1 ea Documented by: [id number] Heparin Sodium/Dextrose (Heparin 53726 Unit/500 Ml D5w) Confirm Administered D ose 25,000 units IV .STK-MED ONE Stop: 07/27/20 14:53 Last Admin: 07/27/20 15:10 Dose: Not Given Documented by: [id number] Nitroglycerin (Nitroglycerin Sl 0.4 Mg/Tab Tab) 0.4 mg SL NOW STA Stop: 07/27/20 14:34 Last Admin: 07/27/20 14:55 Dose: 0.4 mg Documented by: [id number] Nitroglycerin (Nitroglycerin 2% Ointment 30gm Tube) Confirm Administered Dose 18 inch .ROUTE .STK-MED ONE Stop: 07/27/20 15:05 Last Admin: 07/27/20 15:10 Dose: Not Given Documented by: [id number] Imaging Data Radiologist's Impression: Chest X-Ray 07/27/20 13:12 XR chest 1V portable CLINICAL HISTORY: Atypical chest pain. COMPARISON STUDY: Chest radiograph and chest CT September 19, 2019. FINDINGS: Lung volumes are normal. Lungs are clear. There is no pneumothorax or pleural effusion. Cardiac size is normal. Mediastinal contours are normal. There is no evidence for pulmonary edema. Incidental note is made of a proximal left humeral internal fixation. Electronic device projects over the left heart. IMPRESSION: No acute cardiopulmonary findings. No change in appearance of the chest. ACT 112: Negative or not required by law. Electronically signed by: Kimani De M.D. 07/27/2020 1:47 PM Discharge Plan Visit Data Chief Complaint: Cardiac Assessment Stated Complaint: chest pain, dr sent ED Provider: Ruddy Solis Discharge Problem: Non-ST elevation DE (NSTEMI), Chest pain Forms Stand Alone Forms: [facility] Prescriptions Prescriptions: No Action Eliquis 5 mg tablet 5 mg PO BID Qty: 180 RF: 3 estradiol 0.075 mg/24 hr patch weekly 1 patch topical YARBROUGH Qty: 4 RF: 12 furosemide [Lasix] 40 mg tablet 40 mg PO DAILY PRN (Reason: Fluid Retention) Qty: 30 RF: 2 flecainide 100 mg tablet 100 mg PO Q12H Qty: 60 RF: 3 Neuriva Original 50-50 mg tablet,chewable 1 tab PO QAM RF: 0 memantine 5 mg tablet 5 mg PO BID Qty: 180 RF: 1 CPAP Machine Misc See Rx Instructions .ROUTE .COMPLEX Qty: 1 RF: 0 calcium carbonate [Calcium 600] 600 mg calcium (1,500 mg) Tablet 1,200 mg PO QAM RF: 0 cholecalciferol (vitamin D3) [Vitamin D3] 25 mcg (1,000 unit) Capsule 1,000 unit PO QAM RF: 0 docusate sodium 100 mg Capsule 300 mg PO QAM RF: 0 vitamin B complex Tablet 1 tab PO QAM RF: 0 acetaminophen 325 mg Tablet 650 mg PO Q4H PRN (Reason: pain) Qty: 30 RF: 0 metoprolol succinate 25 mg tablet extended release 24 hr 12.5 mg PO QAM RF: 0 Referrals Referrals: Sravan Figueroa MD [Primary Care Provider] - Discharge Problem: Chest pain Qualifiers: Chest pain type: unspecified Qualified Code(s): R07.9 - Chest pain, unspecified
[2020-07-27 14:16] LABS: D Dimer 790 ug/L FEU (0-500)
[2020-07-27] MEDS ORDERED: NITROGLYCERIN SL 0.4 MG/TAB TAB SL STA (14:33)
[2020-07-27] MEDS ORDERED: Heparin IV Adult Wt-Based Standard *NO* Bolus Protocol IV STA (14:46)
[2020-07-27] MEDS ORDERED: HEPARIN 25000 UNIT/500 ML D5W IV ONE (14:52)
--- NOTE | 2020-07-27 14:57 | History & Physical Report ---
Date of Service July 27, 2020 Assessment & Plan (1) Chest pain: (2) Abnormal EKG: (3) Elevated troponin I level: Mrs. Maxwell is a 75-year-old female with a history of Paroxysmal Atrial Fibrillation (diagnosed 04/15/2018) s/p Elective Electrical Cardioversion x 2, PSVT, PAC's, Mild Pulmonary Hypertension, Paroxysmal Atrial Tachycardia, AASHISH, Osteoarthritis, Anxiety, Migraine Headache, Headaches, Fatigue, Mild Cognitive Impairment, and Syncope s/p [employer] LINQ Implantable Loop Recorder 12/05/2019 -- who was referred to the ER from [facility] [place] [facility] earlier today for evaluation of a somewhat Atypical Chest Pain Syndrome, Abnormal EKG (mild ST elevations in leads I and aVL), and an Elevated Troponin I at 1.910 ng/ml. When I initially met with the patient she had ongoing 3-4/10 chest pain. Patient given four 81 mg Aspirin, SL NTG 0.4 mg, Nitropaste 1 inch topically, and Heparin drip was started. Within minutes of taking SL NTG her pain was rated at 1/10. After nitropaste was applied, she had complete resolution of her chest pain. She remains asymptomatic. Presentation is concerning for an ACS. Cardiac Catheterization in 2016 did not show any significant CAD, but that may have changed. Would also consider sluggish flow (cardiac syndrome X) vs coronary artery spasm in the differential diagnoses. -- Trend Troponin I until it peaks, then d/c. -- Continue Heparin Drip. -- Continue Aspirin 81 mg daily. -- Continue Metoprolol Succinate ER 12.5 mg daily. -- Begin Atorvastatin 40 mg daily. -- Check Echocardiogram. -- Consider Cardiac Catheterization tomorrow. (4) Paroxysmal atrial fibrillation: -- No recent recurrences. -- She is maintained on Flecainide 100 mg b.i.d. and Eliquis 5 mg b.i.d.. -- Continue Metoprolol Succinate ER 12.5 mg daily. (5) Chronic diastolic congestive heart failure: -- Compensated and appears euvolemic. -- Continue Metoprolol Succinate ER 12.5 mg daily. -- Continue Lasix 40 mg daily as needed. -- Monitor daily I&O's and body weight. (6) Obstructive sleep apnea: -- Continue CPAP. History of Present Illness Chief Complaint: -- Chest Pain. -- Abnormal EKG. -- Elevated Troponin I level. Primary Care Provider: Sravan Figueroa MD Mrs. Maxwell is a 75-year-old female with a history of Paroxysmal Atrial Fibrillation (diagnosed 04/15/2018) s/p Elective Electrical Cardioversion x 2, PSVT, PAC's, Mild Pulmonary Hypertension, Paroxysmal Atrial Tachycardia, AASHISH, Osteoarthritis, Anxiety, Migraine Headache, Headaches, Fatigue, Mild Cognitive Impairment, and Syncope s/p [employer] LINQ Implantable Loop Recorder 12/05/2019 -- who was referred to the ER from [facility] [place] [facility] earlier today for evaluation of Chest Pain and a newly Abnormal EKG showing mild ST elevations in leads I and aVL. In the ER, her initial Troponin I is elevated at 1.910 ng/ml. Patient was making lunch yesterday at around 12:00 pm and was not feeling well/she felt nauseated. She thought she could vomit was unable. She then felt tired and did not feel well in general, so she rested all afternoon. Last evening she went to evening scientology services, and while there she developed pain across her chest. She describes the discomfort as a "crushing pain" in her chest. The discomfort was worse with taking deep breaths and when walking. She admits to associated dyspnea with the discomfort and also felt "funny" in her stomach. She felt as though she was more short of breath but she thinks this was likely due to the fact that she could not take deep breaths without worsening of her chest pain. She went home and took her blood pressure. It was initially elevated at 186/83 mmHg and then came down to 142/92 mmHg on recheck about 20 minutes later. She slept through the night, but today has had intermittent discomfort in her chest. She has this chest pressure now with mild associated dyspnea, but denies any associated nausea, vomiting, or diaphoresis. Patient denies any symptoms or changes in her exertional tolerance before yesterday. However her daughter arrived and states that her mother has been "really fatigued lately and has slowed down over the past couple of months". She has had the following studies: 1. Dobutamine Stress Echocardiogram 05/06/11: -- Negative for ischemia at 89% MPHR. Positive EKG. No chest pain. Normal LV size and systolic function. Mild MR. 2. Dobutamine Stress Echocardiogram 07/03/12: -- Negative at 93% MPHR. LVEF 60%. Mild MR. 3. CTA of Aorta 12/24/12: -- No aneurysm reported. 4. Holter Monitor 01/06/2014: -- Sinus rhythm with average heart rate 74 bpm. Blunted diurnal heart rate variation. No ectopy. No arrhythmia. -- Shoulder pain during lifting occurred during normal sinus rhythm. 5. Echocardiogram 09/14/2015: -- Normal LV size, wall motion, systolic function. LVEF 60%. No significant valvular abnormalities. 6. Dobutamine Stress Echocardiogram 02/23/2016: -- Abnormal at 100% MPHR suggesting distal LAD ischemia. Apical wall segments appear hypokinetic at peak stress. PVCs. No arrhythmia. Chest pain reported. 7. Cardiac Catheterization 03/15/2016: -- No significant CAD. LVEDP 15mmHg. No aortic stenosis. Normal cardiac output. Normal PCWP. PA pressure 37/11 with mean of 20. 8. Cardiac Event Monitor 04/05/2016 to 05/04/2016: -- Predominantly sinus rhythm. Paroxysmal SVT and atrial tachycardia. SVT up to 17 beats. No symptoms reported. 9. Echocardiogram 10/10/2017: -- Normal LV size, wall motion, systolic function. LVEF 60%-65%. No LVH. No significant diastolic dysfunction. Mild to moderate MR. RVSP 31 mmHg. 10. DC CV 06/21/2018: -- Elective. -- 150 Joules converted AFib to sinus rhythm. 11. DC Cardioversion 04/29/2019: -- Converted from A-Fib to sinus bradycardia. -- Patient on Flecainide leading up to this procedure. 12. CARDIAC EVENT MONITOR 09/27/2019 to 10/10/2019: -- Predominantly sinus rhythm with average HR of 67 bpm. -- One 14 beat of PSVT at 148 bpm. -- PAC's represented < 2% of all recorded beats. -- Two undisclosed symptom episodes correlated with normal sinus rhythm. 13. ECHOCARDIOGRAM 10/04/2019: -- Normal LV size, wall motion, wall thickness, and systolic function. -- LVEF 60% to 65%. -- Mild MR. -- Estimated RVSP 38 mmHg. -- Rhythm was sinus bradycardia in the 50's. 14. PFT's 10/02/2019: -- Improved FEV1 and FEF 25%-75% following bronchodilator. -- DLCO is mildly reduced. 15. Loop recorder 12/05/2019: Medtronic LINQ loop recorder implanted by Dr. Powers. Implanted for syncope. Allergies Allergy/AdvReac Type Severity Reaction Status Date / Time latex Allergy Rash Verified 07/27/20 13:36 amoxicillin AdvReac Intermediate YEAST Verified 07/27/20 13:36 INFECTION Cephalosporins AdvReac Intermediate YEAST Verified 07/27/20 13:36 INFECTION clavulanic acid AdvReac Intermediate YEAST Verified 07/27/20 13:36 INFECTION prednisone AdvReac Intermediate ANXIETY Verified 07/27/20 13:36 Home Medications Medication Instructions Recorded Confirmed Type docusate sodium 300 mg PO QAM 04/15/18 07/27/20 History vitamin B complex 1 tab PO QAM 04/15/18 07/27/20 History calcium carbonate [Calcium 600] 1,200 mg PO QAM 06/08/19 07/27/20 History cholecalciferol (vitamin D3) 1,000 unit PO QAM 06/08/19 07/27/20 History [Vitamin D3] acetaminophen 650 mg PO Q4H PRN #30 tab 09/22/19 07/27/20 Rx apixaban 5 mg tablet 5 mg PO BID #180 tab 09/23/19 07/27/20 Rx estradiol 0.075 mg/24 hr weekly 1 patch TOPICAL YARBROUGH #4 ea 01/28/20 07/27/20 Rx transdermal patch flecainide 100 mg tablet 100 mg PO Q12H #60 tab 03/06/20 07/27/20 Rx furosemide 40 mg tablet 40 mg PO DAILY PRN #30 tab 05/07/20 07/27/20 Rx CPAP Machine See Rx Instructions .ROUTE 05/20/20 07/27/20 Rx .COMPLEX #1 ea coffee extract 50 mg-phosphatidyl 1 tab PO QAM tab 06/04/20 07/27/20 History serine 50 mg chewable tablet memantine 5 mg tablet 5 mg PO BID #180 tab 06/04/20 07/27/20 Rx metoprolol succinate 12.5 mg PO QAM 07/03/20 07/27/20 History Past Med/Surg History Medical History Atrial fibrillation CD (celiac disease) Change in bowel movement Degenerative disc disease Diastolic CHF Diverticulitis (2013) Dyslipidemia History of carpal tunnel syndrome History of paroxysmal supraventricular tachycardia Hypertension Low back pain with sciatica Mitral regurgitation Ocular migraine Osteoarthritis Sleep apnea Surgical History History of arthroscopy of right shoulder History of cardiac cath History of cardioversion History of carpal tunnel release History of cataract surgery History of cholecystectomy History of colonoscopy History of esophagogastroduodenoscopy (EGD) History of foot surgery History of fracture of left shoulder History of hysterectomy History of incision and drainage History of tonsillectomy History of total knee replacement Status post placement of implantable loop recorder Family History Mother Family hx of colon cancer Colorectal cancer Brother Prostate cancer Family history of diabetes mellitus Father Dissecting aortic aneurysm Myocardial infarction Grandmother (Maternal) Stroke Other No family history of adverse response to anesthesia Denies family history of Ovarian cancer Breast cancer Social History Smoking Status: Former smoker Tobacco Type: Cigarettes Age Started Using Tobacco: 19; Age Quit Using Tobacco: 27; packs per day: 0.25; Years Smoked: 8; Smoking End Date: 1871; Second Hand Exposure: No; Do You Dip or Chew Tobacco: No; Tobacco Cessation Education Requested by Patient: No Hx Alcohol Use: No Hx Substance Use: No Preferred Language: Ivorian Communication Ability: Effective 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 HEENT: Head is atraumatic, normocephalic. EOMs intact. Sclerae anicteric. Facies symmetric. No perioral cyanosis. Neck: No JVD. Carotid upstrokes +2 bilaterally without bruits. JVP is at the level of the clavicle sitting upright. Chest and Lungs: Clear to auscultation throughout all lung lala, no wheezes, rales, or rhonchi. CVS: S1 and S2 are regular at 64 bpm. There is a grade 1-2/6 systolic murmur noted at the left sternal border. No obvious diastolic murmurs, gallops, or rubs. PMI is nondisplaced. No lifts, heaves, or thrills. No abdominal aortic or renal bruits. Palpable loop recorder at the left sternal border. Abdominal Exam: Bowel sounds present. No masses, organomegaly, or tenderness. Extremities: No clubbing or cyanosis. Trace pretibial edema bilaterally. Intact posterior tibial and radial pulses bilaterally. Musculoskeletal Exam: Reproducible chest wall tenderness to palpation. No bony deformity or crepitus. Neurologic Exam: Patient is awake, alert, and oriented. Pleasant and cooperative. Answers questions appropriately. Speech is clear. Normal movement i n all 4 extremities. Gait pattern was not assessed. Follow Up Clerk: -- NSR in the 60's with occasional PAC's. EKG 07/27/20: -- NSR with mild ST elevations in leads I and aVL. Results & Data Results & Data ([facility]) Vital Signs (Past 12 Hours) Vital Signs Temp Pulse Resp BP Pulse Ox 07/27/20 14:08 61 20 160/67 H 97 07/27/20 13:39 98 07/27/20 13:35 57 L 18 157/79 H 97 07/27/20 13:02 36.3 C L 59 L 20 157/66 H 97 Laboratory Results Laboratory Results - last 24 hr 07/27/20 07/27/20 07/27/20 13:24 13:24 13:24 WBC 8.72 RBC 4.12 L Hgb 12.9 Hct 36.4 L MCV 88.3 MCH 31.3 MCHC 35.4 RDW Std Deviation 47.6 H RDW Coeff of Malinda 14.6 H Plt Count 362 MPV 10.3 Immature Gran % (Auto) 0.1 Neut % (Auto) 47.3 Lymph % (Auto) 41.1 [place] % (Auto) 10.3 Eos % (Auto) 0.6 Baso % (Auto) 0.6 Neut # (Auto) 4.13 Lymph # (Auto) 3.58 H [place] # (Auto) 0.90 H Eos # (Auto) 0.05 Baso # (Auto) 0.05 Immature Gran # (Auto) 0.01 PT 10.7 INR 1.1 APTT 29.7 PTT Ratio 1.1 D-Dimer Sodium 135 L Potassium 3.9 Chloride 102 Carbon Dioxide 28 Anion Gap 5.0 BUN 10 Creatinine 0.74 Est Cr Clr Drug Dosing 77.1 Est GFR ( Amer) 91.9 Est GFR (Non-Af Amer) 79.3 BUN/Creatinine Ratio 13.0 Glucose 85 Calcium 9.7 Total Bilirubin 0.5 AST 30 ALT 21 Alkaline Phosphatase 97 Troponin I 1.910 H* Total Protein 7.6 Albumin 3.7 Globulin 3.9 Albumin/Globulin Ratio 0.9 COVID-19 Eval Order SARS-CoV-2 (PCR) Influenza Type A (PCR) Influenza Type B (PCR) RSV (RT-PCR) 07/27/20 07/27/20 07/27/20 13:24 14:24 14:24 WBC RBC Hgb Hct MCV MCH MCHC RDW Std Deviation RDW Coeff of Malinda Plt Count MPV Immature Gran % (Auto) Neut % (Auto) Lymph % (Auto) [place] % (Auto) Eos % (Auto) Baso % (Auto) Neut # (Auto) Lymph # (Auto) [place] # (Auto) Eos # (Auto) Baso # (Auto) Immature Gran # (Auto) PT INR APTT PTT Ratio D-Dimer 790 H* Sodium Potassium Chloride Carbon Dioxide Anion Gap BUN Creatinine Est Cr Clr Drug Dosing Est GFR ( Amer) Est GFR (Non-Af Amer) BUN/Creatinine Ratio Glucose Calcium Total Bilirubin AST ALT Alkaline Phosphatase Troponin I Total Protein Albumin Globulin Albumin/Globulin Ratio COVID-[address] Eval [address] CovFluRsv at [facility] SARS-CoV-2 (PCR) Pending Influenza Type A (PCR) Pending Influenza Type B (PCR) Pending RSV (RT-PCR) Pending Diagnostic Findings CXR 07/27/20: -- Lung volumes are normal. Lungs are clear. There is no pneumothorax or pleural effusion. Cardiac size is normal. Mediastinal contours are normal. There is no evidence for pulmonary edema. Incidental note is made of a proximal left humeral internal fixation. Electronic device projects over the left heart. IMPRESSION: No acute cardiopulmonary findings. No change in appearance of the chest. Code Status & VTE Plan Code Status Full Code Supervising Physician Co-Signing Physician Notes I personally saw and examined the patient. I verified all cramer points and agree with Abdullahi Salinas PA-C with the following exceptions and/or additions: 75 year old female admission for chest pain. Sent over from cardiology clinic due to mild ST elevations in I and avL, pain chest pain occurred last night around 7pm, lasting for 1.5 hours. Initially told me she was chest pain free in the ER however on further questioning from Abdullahi Salinas she was having some ongoing discomfort which was relieved fully with nitroglycerin. O/E No acute distress, HS1+2, occasional missed beats, no murmurs, Chest CTAB, Abdo SNT, BS +ve A/P NSTEMI - mild non-diagnostic ST elevations in I, AVL. Patient currently chest pain free after nitroglycerin. ASA given in ER. Will start on heparin IV drip (previously took Eliquis this morning) therefore no bolus given. [facility] aware of ST elevations and patient admission. Continue nitro patch 2% 1 inch. Continue her usual metoprolol succinate. LDL 94 in May - consider statin depending on findings of cardiac catheterization. NPO after midnight for cardiac cath per cardiology recommendations. Consult cardiology. PG Care Time/CCT Total # of Minutes Spent Total Time Spent with Patient: Total time spent is greater than 50% in coordination of care (as documented) at patient's floor/unit and/or counseling patient: Coding Level of Care Code 03371 Initial Inpt Care Lvl 3 Diagnoses Chest pain R07.9 Abnormal EKG R94.31 Elevated troponin I level R77.8 Paroxysmal atrial fibrillation I48.0 Chronic diastolic congestive heart failure I50.32 Obstructive sleep apnea G47.33 Time Spent (min) 70
[2020-07-27] MEDS: HEPARIN SODIUM/DEXTROSE 25,000 UNITS/500 ML BAG IV SCH (15:01)
[2020-07-27] MEDS ORDERED: NITROGLYCERIN 2% OINTMENT 30GM TUBE ONE (15:04)
[2020-07-27] MEDS: NITROGLYCERIN 2% OINTMENT 30GM TUBE EXT SCH (15:07)
[2020-07-27 15:24] LABS: Influenza A virus by PCR Negative (Neg); Influenza B virus by PCR Negative (Neg); RSV by PCR Negative (Neg); SARS CoV2 RNA(COVID-19) InHosp NEGATIVE (Negative)
[2020-07-27 21:56] LABS: Partial Thromboplastin Ratio 3.3
[2020-07-27 22:00] LABS: Partial Thromboplastin Time 86.8 Seconds (21.0-31.0)
[2020-07-28] MEDS ORDERED: MoRPHine SULFATE 2 MG/ML CARP IV PRN (03:07)
[2020-07-28] MEDS ORDERED: NITROGLYCERIN SL 0.4 MG/TAB TAB SL PRN (03:07)
[2020-07-28] MEDS ORDERED: FUROSEMIDE 40 MG TAB PO PRN ×2 (03:07)
[2020-07-28] MEDS ORDERED: MAGNESIUM HYDROXIDE SUSP 30 ML UDC PO PRN (03:07)
[2020-07-28] MEDS ORDERED: NON-FORMULARY MEDICATION (Cpap Machine misc) SCH (03:07)
[2020-07-28] MEDS ORDERED: ACETAMINOPHEN 325 MG TAB PO PRN (03:07)
[2020-07-28] MEDS ORDERED: ALUMINUM/MAGNESIUM SUSP 30 ML UDC PO PRN (03:07)
[2020-07-28] MEDS ORDERED: POLYETHYLENE (MIRALAX) 17 GM PACK PO PRN (03:07)
[2020-07-28] MEDS ORDERED: ONDANSETRON INJ 2 MG/ML 2 ML VIAL IV PRN (03:07)
[2020-07-28] MEDS: NITROGLYCERIN 2% OINTMENT 30GM TUBE EXT SCH ×4 (05:32→07:28)
[2020-07-28 05:39] LABS: Basophils # (auto) 0.05 K/uL (0-0.2); Basophils % (auto) 0.7 %; Eosinophils % (auto) 1.4 %; Hematocrit (blood only) 35.2 % (37-47); Hemoglobin 12.5 g/dL (12.0-16.0); Lymphocytes # (auto) 3.27 K/uL (1.2-3.4); Lymphocytes % (auto) 46.1 %; Mean Corpuscular Hemoglobin 31.4 pg (25-34); Mean Corpuscular Hgb Conc 35.5 g/dL (32-36); Mean Corpuscular Volume 88.4 fL (80-100); Monocytes # (auto) 0.94 K/uL (0.11-0.59); Monocytes % (auto) 13.3 %; Neutrophils # (auto) 2.73 K/uL (1.4-6.5); Neutrophils % (auto) 38.5 %; Platelet Count 332 K/uL (130-400); RDW Coefficient of Variation 14.4 % (11.5-14.5); RDW Standard Deviation 46.9 fL (36.4-46.3); Red Blood Count 3.98 M/uL (4.2-5.4); White Blood Count 7.09 K/uL (4.8-10.8)
[2020-07-28] MEDS: MEMANTINE HCL 5 MG TAB PO SCH ×3 (06:02→21:00)
[2020-07-28 06:04] LABS: Partial Thromboplastin Ratio 3.3
[2020-07-28 06:06] LABS: BUN Creatinine Ratio 14.7 (10-20); Calcium 8.6 mg/dl (8.5-10.1); Creatinine Clr Calc Pharmacy 91.9 ml/min; Est GFR (African American) 101.2; Est GFR (Non-African American) 87.3; Potassium 3.9 mmol/L (3.5-5.1)
[2020-07-28] MEDS: ACETAMINOPHEN 325 MG TAB PO PRN (06:08)
[2020-07-28 06:19] LABS: Partial Thromboplastin Time 87.1 Seconds (21.0-31.0)
[2020-07-28] MEDS ORDERED: POTASSIUM CHLORIDE 20 MEQ in SODIUM CHLORIDE 0.9% 500 ML IV SCH (07:00)
[2020-07-28] MEDS ORDERED: STAT IV Infusion **Titration per Protocol STA (07:03)
[2020-07-28] MEDS ORDERED: NITROGLYCERIN/D5W 100MCG/ML 250 ML IV SCH (07:15)
[2020-07-28] MEDS: CHOLECALCIFEROL 1,000 UNITS 25 MCG TAB PO SCH (08:15)
[2020-07-28] MEDS: METOPROLOL SUCC 25MG EXT REL TAB PO SCH (08:16)
[2020-07-28] MEDS: ASPIRIN 81 MG ECTAB PO SCH (08:19)
[2020-07-28] MEDS: CALCIUM 600MG + VIT D 400 IU TAB PO SCH (08:19)
[2020-07-28] MEDS: DOCUSATE SODIUM 100 MG CAP PO SCH (08:19)
[2020-07-28] MEDS: VITAMIN B COMPLEX TAB PO SCH (08:19)
[2020-07-28] MEDS: ESTRADIOL SCH ×2 (08:19→16:32)
[2020-07-28] MEDS: HEPARIN SODIUM/DEXTROSE 25,000 UNITS/500 ML BAG IV SCH ×2 (09:00→20:06)
--- NOTE | 2020-07-28 09:43 | Cardiology Consultation ---
Date of Consultation July 28, 2020 Assessment & Plan (1) Chest pain syndrome: -history is concerning for an acute coronary syndrome. -transient EKG changes in leads 1 and aVL. -troponin elevated 2.6. -agree with intravenous heparin and nitroglycerin. -continue metoprolol succinate. -will proceed with cardiac catheterization today. Discussed with Dr. Rico. (2) Hypertension: -adequate control on current regimen. (3) Hypercholesterolemia: -agree with the addition of atorvastatin. (4) Paroxysmal atrial fibrillation: -remains in sinus rhythm on flecainide. -Eliquis currently on hold. History of Present Illness Attending Physician: Zachary Christy MD History of Present Illness Mrs. Maxwell is a 75-year-old female admitted yesterday with a chest pain syndrome and abnormal EKG. This consultation was ordered to assist in her cardiac management. Of note, the patient is followed by Dr. Delacruz in the outpatient setting. The patient was in her usual state health until Monday evening when attending orthodox services. The patient had the abrupt onset of a crushing substernal chest pain with associated shortness of breath. The patient did note a pleuritic component to her discomfort. There was no nausea, vomiting, diaphoresis, or radiation of the discomfort. The patient returned home and checked her blood pressure noting it to be elevated 180/90. The patient was able to fall to sleep, however, when she awoke Monday morning she felt weak and fatigued. She was noticing intermittent substernal chest pressure and associated nausea. She presented to the office and was seen by Donna Amado PA-C. An EKG noted minor ST elevation in leads I and aVL, and therefore, the patient was sent to the emergency room for further care. On arrival here, the patient continued to complain of chest discomfort. Her initial troponin was elevated at 1.91. She was given aspirin, nitroglycerin, and topical nitrates. Her discomfort resolved completely. However, she explains this morning that she is still noting intermittent episodes of substernal chest pressure. The patient did have a cardiac catheterization performed in March 2016 which showed no significant disease. The patient had a loop recorder placed in December of 2019 for an episode of syncope. Currently, patient is resting comfortably in bed without complaints. Past medical and surgical history 1. Hypertension 2. Hypercholesterolemia 3. Diastolic CHF 4. Paroxysmal atrial fibrillation 5. Paroxysmal SVT 6. Mild mitral regurgitation 7. Mild cognitive impairment 8. Celiac disease 9. Diverticulosis 10. DJD 11. Migraine headaches 12. Anxiety 13. Chronic low back pain 14. Obstructive sleep apnea 15. Carpal tunnel release 16. Hysterectomy 17. Tonsillectomy 18. Right TKR Social history and lives with her Retired from [employer] Quit tobacco use at age 27 No alcohol Family history Noncontributory Review of systems A 10 review systems was undertaken and negative except that described above. Allergies Allergy/AdvReac Type Severity Reaction Status Date / Time latex Allergy Rash Verified 07/27/20 13:36 amoxicillin AdvReac Intermediate YEAST Verified 07/27/20 13:36 INFECTION Cephalosporins AdvReac Intermediate YEAST Verified 07/27/20 13:36 INFECTION clavulanic acid AdvReac Intermediate YEAST Verified 07/27/20 13:36 INFECTION prednisone AdvReac Intermediate ANXIETY Verified 07/27/20 13:36 Home Medications Medication Instructions Recorded Confirmed Type docusate sodium 300 mg PO QAM 04/15/18 07/27/20 History vitamin B complex 1 tab PO QAM 04/15/18 07/27/20 History calcium carbonate [Calcium 600] 1,200 mg PO QAM 06/08/19 07/27/20 History cholecalciferol (vitamin D3) 1,000 unit PO QAM 06/08/19 07/27/20 History [Vitamin D3] acetaminophen 650 mg PO Q4H PRN #30 tab 09/22/19 07/27/20 Rx apixaban 5 mg tablet 5 mg PO BID #180 tab 09/23/19 07/27/20 Rx estradiol 0.075 mg/24 hr weekly 1 patch TOPICAL YARBROUGH #4 ea 01/28/20 07/27/20 Rx transdermal patch flecainide 100 mg tablet 100 mg PO Q12H #60 tab 03/06/20 07/27/20 Rx furosemide 40 mg tablet 40 mg PO DAILY PRN #30 tab 05/07/20 07/27/20 Rx CPAP Machine See Rx Instructions .ROUTE 05/20/20 07/27/20 Rx .COMPLEX #1 ea coffee extract 50 mg-phosphatidyl 1 tab PO QAM tab 06/04/20 07/27/20 History serine 50 mg chewable tablet memantine 5 mg tablet 5 mg PO BID #180 tab 06/04/20 07/27/20 Rx metoprolol succinate 12.5 mg PO QAM 07/03/20 07/27/20 History Patient History Medical History Atrial fibrillation CD (celiac disease) Change in bowel movement Degenerative disc disease Diastolic CHF Diverticulitis (2013) Dyslipidemia History of carpal tunnel syndrome History of paroxysmal supraventricular tachycardia Hypertension Low back pain with sciatica Mitral regurgitation Ocular migraine Osteoarthritis Sleep apnea Surgical History History of arthroscopy of right shoulder History of cardiac cath History of cardioversion History of carpal tunnel release History of cataract surgery History of cholecystectomy History of colonoscopy History of esophagogastroduodenoscopy (EGD) History of foot surgery History of fracture of left shoulder History of hysterectomy History of incision and drainage History of tonsillectomy History of total knee replacement Status post placement of implantable loop recorder Family History Mother Family hx of colon cancer Colorectal cancer Brother Prostate cancer Family history of diabetes mellitus Father Dissecting aortic aneurysm Myocardial infarction Grandmother (Maternal) Stroke Other No family history of adverse response to anesthesia Denies family history of Ovarian cancer Breast cancer Social History Smoking Status: Former smoker Tobacco Type: Cigarettes Age Started Using Tobacco: 19; Age Quit Using Tobacco: 27; packs per day: 0.25; Years Smoked: 8; Smoking End Date: 1871; Second Hand Exposure: No; Do You Dip or Chew Tobacco: No; Tobacco Cessation Education Requested by Patient: No Hx Alcohol Use: No Hx Substance Use: No Preferred Language: Urdu Communication Ability: Effective Imagery Intelligence Required: No Beliefs That Will Affect Care: None and Rastafari marital status: Current Living Situation: Spouse Current Living Situation Comment: Lives with current occupational status: retired Other Information That Helps Us Care for You: 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 HEENT exam is negative. Neck is supple with full carotid upstrokes. There are no carotid bruits. Jugular venous pressure is flat at 90. There is no thyromegaly. Cardiovascular exam reveals a regular rhythm with a normal S1 and S2. No S3, S4, or murmurs are noted. Lungs are clear without rales, rhonchi, or wheezes. Abdomen is soft and nontender without bruits. Extremities reveal intact radial artery and posterior tibial pulses bilaterally. There is no peripheral edema. Results & Data ([facility]) Vital Signs (Past 12 Hours) Vital Signs Temp Pulse Pulse Resp BP BP Pulse Ox 07/28/20 08:02 126/63 07/28/20 07:25 36.4 C L 54 L 51 L 16 138/66 95 07/28/20 04:32 36.6 C 88 18 118/66 96 07/28/20 02:32 36.6 C 20 146/63 H 96 07/28/20 01:18 56 L 16 07/28/20 01:10 56 L 16 07/28/20 01:01 59 L 17 07/28/20 01:00 58 L 17 119/50 L 07/28/20 00:50 59 L 18 07/28/20 00:40 60 17 91 07/28/20 00:31 58 L 22 92 07/28/20 00:30 56 L 17 118/50 L 94 07/28/20 00:20 58 L 14 94 07/28/20 00:10 58 L 20 93 07/28/20 00:01 57 L 17 94 07/28/20 00:00 58 L 18 131/55 L 93 07/27/20 23:50 60 19 91 07/27/20 23:40 57 L 14 94 07/27/20 23:31 60 22 97 07/27/20 23:30 65 19 114/61 96 07/27/20 23:20 60 14 95 07/27/20 23:10 59 L 18 94 07/27/20 23:01 55 L 15 90 07/27/20 23:00 56 L 17 122/50 L 93 07/27/20 22:30 58 L 18 116/50 L 94 07/27/20 22:00 53 L 17 116/48 L 94 07/27/20 21:36 70 19 132/72 Laboratory Results CBC notes hemoglobin of 12.5, hematocrit 35.2, white count 7.09, and platelet c ount [id number]. Electrolytes note a sodium of 140, potassium 3.9, chloride 107, bicarb 30, BUN 9, creatinine 0.64, and glucose of 89. Troponin I level on presentation was 1.91 with a follow-up value of 2.6. BNP is mildly elevated 940. Diagnostic Findings Initial EKG notes sinus bradycardia with PACs. There is minor ST elevation in leads I and aVL. Second tracing notes sinus bradycardia with a T-wave abnormality in leads I and aVL. Echocardiogram notes normal left ventricular systolic function without wall motion abnormality. Left ventricular ejection fraction 60-65%. There was mild LVH and evidence of mild mitral regurgitation. Chest x-ray notes a normal cardiac silhouette and evidence of her implanted loop recorder. PG Care Time/CCT Total # of Minutes Spent Total Time Spent with Patient: Total time spent is greater than 50% in coordi [facility] (as documented) at patient's floor/unit and/or counseling patient: Coding Level of Care Code 05842 Initial Inpt Care Lvl 3 Diagnoses Chest pain syndrome R07.9 Hypertension I10 Hypercholesterolemia E78.00 Paroxysmal atrial fibrillation I48.0
--- NOTE | 2020-07-28 09:57 | XCELERA ---
[id number]
[2020-07-28] MEDS: FLECAINIDE ACETATE 100 MG TABLET PO SCH ×2 (11:27→21:00)
--- NOTE | 2020-07-28 12:22 | Electrocardiogram Report ---
Test Reason : Blood Pressure : / mmHG Vent. Rate : 059 BPM Atrial Rate : 059 BPM P-R Int : 190 ms QRS Dur : 104 ms QT Int : 438 ms P-R-T Axes : 073 049 054 degrees QTc Int : 433 ms Sinus bradycardia with Premature atrial complexes ST abnormality in the high lateral leads Abnormal ECG When compared with ECG of 20-SEP-2019 22:05, Premature atrial complexes are now Present Confirmed by Sravan Apodaca ([id number]) on 07/28/2020 12:21:59 PM Referred By: Donna Leigh Confirmed By:Sravan Apodaca
--- NOTE | 2020-07-28 12:57 | Electrocardiogram Report ---
Test Reason : Blood Pressure : / mmHG Vent. Rate : 051 BPM Atrial Rate : 051 BPM P-R Int : 186 ms QRS Dur : 096 ms QT Int : 474 ms P-R-T Axes : 065 054 084 degrees QTc Int : 436 ms Sinus bradycardia Abnormal ECG When compared with ECG of 27-JUL-2020 13:07, (unconfirmed) Premature atrial complexes are no longer Present Confirmed by Sravan Apodaca ([id number]) on 07/28/2020 12:57:32 PM Referred By: Donna Leigh Confirmed By:Sravan Apodaca
[2020-07-28 13:06] LABS: Partial Thromboplastin Ratio 2.9
[2020-07-28 13:16] LABS: Partial Thromboplastin Time 75.4 Seconds (21.0-31.0)
--- NOTE | 2020-07-28 13:16 | Hospitalist Progress Note ---
Date of Service July 28, 2020 Assessment & Plan (1) Non-ST elevation NH (NSTEMI): Troponin up to 2.6 overnight with EKG changes and chest pain. - Continue heparin gtt, ASA, beta-silvano - Add high-dose statin - Cardiology consulted - Plan for left heart cath (2) Paroxysmal atrial fibrillation: No recent recurrences. Telemetry as of 07/28 was in sinus rhythm still. -- She is maintained on Flecainide 100 mg b.i.d. and Eliquis 5 mg b.i.d.. -- Continue Metoprolol Succinate ER 12.5 mg daily. (3) Chronic diastolic congestive heart failure: Presently appears euvolemic on exam. Did get some fluids overnight, so will need to watch closely. - Monitor and have low threshold to restart Lasix (4) Obstructive sleep apnea: CPAP as needed in the hospital (5) DVT prophylaxis: On heparin gtt for NSTEMI Admission and Anticipated Discharge Date Admission Date: July 27, 2020 Subjective No chest pain (or low at 1/10) this morning, but had episodes overnight. Reports no fevers/chills, shortness of breath, abdominal pain, nausea, or vomiting. Physical Exam Constitutional: WD/WN, vitals as above Eyes: EOM intact bilaterally; no conjunctival abnormality ENMT: external ear and nose normal, oropharynx normal Neck: trachea midline, no thyromegaly normal visual inspection Respiratory: normal respiratory effort, lungs clear to auscultation no respiratory distress Cardiovascular: RRR, no murmur, no edema Gastrointestinal (Abdomen): Inspection/Auscultation: abdomen normal to inspection; abdomen not distended Musculoskeletal: no cyanosis or clubbing, extremities motor strength 5/5 Skin: no rashes, warm and dry Neurologic: moves all extremities and awake Psychiatric: Orientation: alert, oriented to person and cooperative Results & Data Results & Data ([facility]) Vital Signs (Past 12 Hours) Vital Signs Temp Pulse Pulse Resp BP Pulse Ox 07/28/20 12:22 36.7 C 62 18 132/63 98 07/28/20 08:02 126/63 07/28/20 07:25 36.4 C L 54 L 51 L 16 138/66 95 07/28/20 04:32 36.6 C 88 18 118/66 96 07/28/20 02:32 36.6 C 20 146/63 H 96 04/27/21 01:18 56 L 16 PG Care Time/CCT Total # of Minutes Spent Total Time Spent with Patient: Total time spent is greater than 50% in coordination of care (as documented) at patient's floor/unit and/or counseling patient: Coding Level of Care Code 45454 Subseq Hosp Care Lvl 3 Diagnoses Non-ST elevation NH (NSTEMI) I21.4 Paroxysmal atrial fibrillation I48.0 Chronic diastolic congestive heart failure I50.32 Obstructive sleep apnea G47.33 DVT prophylaxis Z29.9
[2020-07-28] MEDS ORDERED: MIDAZOLAM HCL 1 MG/ML 2ML VIAL ONE (13:38)
[2020-07-28] MEDS ORDERED: NITROGLYCERIN/D5W 100MCG/ML 20ML SYR ONE (13:38)
[2020-07-28] MEDS ORDERED: fentaNYL citrate 100 MCG/2 ML VIAL ONE (13:38)
[2020-07-28] MEDS ORDERED: HEPARIN (PORCINE) 1000 UNIT/ML 10 ML (CATH LAB USE ONLY) ONE (13:38)
[2020-07-28] MEDS ORDERED: niCARdipine HCL INJ 2.5 MG/ML 10 ML AMP ONE (13:38)
--- NOTE | 2020-07-28 14:07 | Pre Anesthesia Assessment ---
Date of Service July 28, 2020 Pre Sedation Assessment Vital Signs Temp Pulse Pulse Resp BP BP Pulse Ox 07/28/20 13:50 58 L 18 162/60 H 97 07/28/20 12:22 98.1 F 62 18 132/63 98 07/28/20 08:02 126/63 07/28/20 07:25 97.5 F L 54 L 51 L 16 138/66 95 07/28/20 04:32 97.9 F 88 18 118/66 96 07/28/20 02:32 97.9 F 20 146/63 H 96 07/28/20 01:18 56 L 16 07/28/20 01:10 56 L 16 07/28/20 01:01 59 L 17 07/28/20 01:00 58 L 17 119/50 L 07/28/20 00:50 59 L 18 07/28/20 00:40 60 17 91 07/28/20 00:31 58 L 22 92 07/28/20 00:30 56 L 17 118/50 L 94 07/28/20 00:20 58 L 14 94 07/28/20 00:10 58 L 20 93 07/28/20 00:01 57 L 17 94 07/28/20 00:00 58 L 18 131/55 L 93 07/27/20 23:50 60 19 91 07/27/20 23:40 57 L 14 94 07/27/20 23:31 60 22 97 07/27/20 23:30 65 19 114/61 96 07/27/20 23:20 60 14 95 07/27/20 23:10 59 L 18 94 07/27/20 23:01 55 L 15 90 07/27/20 23:00 56 L 17 122/50 L 93 07/27/20 22:30 58 L 18 116/50 L 94 07/27/20 22:00 53 L 17 116/48 L 94 07/27/20 21:36 70 19 132/72 07/27/20 21:00 53 L 18 103/47 L 94 07/27/20 20:30 59 L 17 124/58 L 95 07/27/20 20:00 56 L 17 111/49 L 96 07/27/20 19:30 58 L 20 116/51 L 94 07/27/20 19:00 57 L 14 116/51 L 95 07/27/20 18:30 59 L 20 118/70 97 07/27/20 18:00 155/67 H 98 07/27/20 17:50 55 L 17 07/27/20 17:30 61 16 137/59 L 07/27/20 17:15 53 L 19 131/55 L 96 07/27/20 17:00 61 18 114/52 L 97 07/27/20 16:45 51 L 16 127/61 94 07/27/20 16:40 55 L 19 93 07/27/20 16:30 61 16 142/60 H 94 07/27/20 16:15 55 L 18 128/76 96 07/27/20 16:00 54 L 17 138/58 L 96 07/27/20 15:45 53 L 15 141/64 H 97 07/27/20 15:31 57 L 16 142/60 H 97 07/27/20 15:21 64 17 173/68 H 96 07/27/20 15:17 59 L 17 147/103 H 96 07/27/20 15:03 63 20 169/76 H 97 07/27/20 15:00 66 20 167/76 H 96 07/27/20 14:58 64 16 168/78 H 97 07/27/20 14:56 57 L 16 173/64 H 99 07/27/20 14:08 61 20 160/67 H 97 Cardiovascular RRR, no murmur, no edema Respiratory normal respiratory effort, lungs clear to auscultation Pre-Sedation Airway Assessment Smoking Status: Former smoker Hx Sleep Apnea: No Hx Difficult Intubation: No Short, Thick Neck: No Thyromental Distance: > or= 3.5 Finger Breadths Oral Cavity: + WNL Mallampati Class: III ASA: ASA2 NPO Status Date of Last Intake of Fluids: 07/28/20 Time of Last Intake of Fluids: 07:00 Date of Last Intake of Solid Food: 07/27/20 Time of Last Intake of Solid Foods: 20:00 Procedure Planning Contraindications for Sedation: none Current Medications Reviewed: Yes Notes The planned sedation has been discussed with the patient. Informed Consent was obtained. I have identified the patient, determined the appropriateness of sedation and have assessed the patient immediately prior to the procedure. All medicine(s) and interventions are by my order.
--- NOTE | 2020-07-28 14:34 | Post Anesthesia Assessment ---
Date of Service July 28, 2020 Post Sedation Assessment Vital Signs Temp Pulse Pulse Resp BP BP Pulse Ox 07/28/20 13:50 58 L 18 162/60 H 97 07/28/20 12:22 98.1 F 62 18 132/63 98 07/28/20 08:02 126/63 07/28/20 07:25 97.5 F L 54 L 51 L 16 138/66 95 07/28/20 04:32 97.9 F 88 18 118/66 96 07/28/20 02:32 97.9 F 20 146/63 H 96 07/28/20 01:18 56 L 16 07/28/20 01:10 56 L 16 07/28/20 01:01 59 L 17 07/28/20 01:00 58 L 17 119/50 L 07/28/20 00:50 59 L 18 07/28/20 00:40 60 17 91 07/28/20 00:31 58 L 22 92 07/28/20 00:30 56 L 17 118/50 L 94 07/28/20 00:20 58 L 14 94 07/28/20 00:10 58 L 20 93 07/28/20 00:01 57 L 17 94 07/28/20 00:00 58 L 18 131/55 L 93 07/27/20 23:50 60 19 91 07/27/20 23:40 57 L 14 94 07/27/20 23:31 60 22 97 07/27/20 23:30 65 19 114/61 96 07/27/20 23:20 60 14 95 07/27/20 23:10 59 L 18 94 07/27/20 23:01 55 L 15 90 07/27/20 23:00 56 L 17 122/50 L 93 07/27/20 22:30 58 L 18 116/50 L 94 07/27/20 22:00 53 L 17 116/48 L 94 07/27/20 21:36 70 19 132/72 07/27/20 21:00 53 L 18 103/47 L 94 07/27/20 20:30 59 L 17 124/58 L 95 07/27/20 20:00 56 L 17 111/49 L 96 07/27/20 19:30 58 L 20 116/51 L 94 07/27/20 19:00 57 L 14 116/51 L 95 07/27/20 18:30 59 L 20 118/70 97 07/27/20 18:00 155/67 H 98 07/27/20 17:50 55 L 17 07/27/20 17:30 61 16 137/59 L 07/27/20 17:15 53 L 19 131/55 L 96 07/27/20 17:00 61 18 114/52 L 97 07/27/20 16:45 51 L 16 127/61 94 07/27/20 16:40 55 L 19 93 07/27/20 16:30 61 16 142/60 H 94 07/27/20 16:15 55 L 18 128/76 96 07/27/20 16:00 54 L 17 138/58 L 96 07/27/20 15:45 53 L 15 141/64 H 97 07/27/20 15:31 57 L 16 142/60 H 97 07/27/20 15:21 64 17 173/68 H 96 07/27/20 15:17 59 L 17 147/103 H 96 07/27/20 15:03 63 20 169/76 H 97 07/27/20 15:00 66 20 167/76 H 96 07/27/20 14:58 64 16 168/78 H 97 07/27/20 14:56 57 L 16 173/64 H 99 Recovery Score Activity: Moves 4 extremities Respiration: Deep Breath/Cough Circulation: +/-20% PreAnes Value Consciousness: Fully Awake Oxygen Saturation: O2 needed for >90% Discharge Sedation Level of Care: Fast Track Phase II Post Sedation Plan On clinical assessment, the patient appears to have tolerated the sedation without complications. Patient is recovering as anticipated. Patient will continue to be monitored by nursing and may be discharged when sedation discharge criteria are met per below protocol. Upon Completions of procedure up to 15 minutes continue every 5 minute vital signs and the P.A.R. score; then discharge to a Phase I or Fast Track to Phase II per the following guidelines: * Discharge Patient to appropriate Phase II area if PAR is 8 or greater or return to pre- procedure baseline. The post - procedure orders will be as directed. * If PAR score is less than 8 or not return to pre-procedure baseline then pa tient will follow Phase I monitoring till PAR is reached for Phase II. The Phase I may be done in procedure room or may call to secure a Phase I area. * If naloxone or flumazenil are used for reversal, hold in Phase I for continued monitoring from when last reversal dose was given for a minimum of 60 minutes or longer pending the nurse and/or physician discretion of patient condition before discharge to Phase II. Please call the Sedation Physician to re-evaluate and complete post-note for discharge to Phase II area. Do NOT discharge from procedure sedation or Phase 1 until post- sedation evaluation note is complete by procedure /sedation MD Sedation Discharge Instructions to be given to the patient at discharge to home.
[2020-07-28] MEDS ORDERED: SODIUM CHLORIDE 0.9% 1000ML 750 ML IV SCH (14:45)
--- NOTE | 2020-07-28 14:51 | Cardiac Catheterization ---
[facility] Data: Physical Laboratory Assistant Cardiac Status Clinical evaluation leading to the procedure CAD Presenation: Non STEMI Anginal Classification: CCS IV Heart Failure: No Cardiogenic Shock within 24 Hours: No Cardiac Arrest within 24 Hours: No Imaging Studies Past 6 Months: Yes Stress Studies Past 6 Months: No Left Ventricular Angiography EF (%): 60 Mitral Regurgitation: 1+ and 2+ Diagnostic Physicians Name: Gus Rico MD Status: Elective Closure Device Percutaneous Entry Location: Radial Closure Device: Radial Band Recommendations: Medical Therapy and/or Counseling Intraprocedure Events Significant Disection: No Perforation: No Cardiac Cath Procedure Full Procedure Date July 28, 2020 Pre-Procedure Diagnosis Pre-Procedure Diagnosis: Non STEMI AUC Score AUC Score: 8 Post-Procedure Diagnosis Post-Procedure Diagnosis: Moderate CAD, Normal LV Systolic Function and Normal Intracardiac Pressures Procedure(s) Performed Procedure(s) Performed: Coronary Angiography, Left Heart Cath and LV Angiography [employer] Gus Rico MD Branch Chief(s) Olinda Salgado Estimated Blood Loss Estimated Blood Loss: 5 Medication(s) Medication(s): Fentanyl, Heparin, Lidocaine 1%, Nicardipine, Nitroglycerin and Versed Summary of Findings Indication: NSTEMI Access: 6Fr right radial artery Catheters: [place], pigtail Findings: LM - short, almost separate ostium, angiographically normal LAD -medium caliber, tortuous, no significant disease. Medium caliber D1, D2 without disease. Circumflex -medium caliber, no significant disease. Very small OM 2 with severe proximal disease and appears possibly occluded in the midsegment. RCA -dominant, no significant disease LVEDP -14 Arterial Closure: TR band Summary: 1. No significant coronary artery disease of major epicardial vessels 2. Small branch vessel disease severe disease in small OM2 prior to mid segment occlusion (vessel < 2 mm). 2. Normal intracardiac filling pressure. Normal LV systolic function. 1+ mitral regurgitation. Recommendations: No high risk CAD identified. Suspect symptoms secondary to small OM 2 or hypertensive urgency on presentation. OM2 vessel too small for angioplasty or stenting. Continue aspirin. Continue heparin overnight post TR band removal. Can resume Eliquis in a.m. Titrate antihypertensives Hemodynamics Rest Ao:: 139/59/92 Final Ao: 166/58/104 LV: 164/14 Recommendations Recommendations: Medical Therapy and/or Counseling Specimens Specimens: None Radiation Exposure (mGy) 631 Contrast (mls) 65 Fluids (cc crystalloids) Fluids (cc crystalloids): -- Drains Drains: none Anesthesia moderate [id number] Procedural Complication(s) None Disposition PCU I attest to the content of the Intraoperative Record and any orders documented therein. Any exceptions are noted below. [facility] Card Cath Procedure Codes Cardiac Catheterization Procedure 1: Cardiovascular Cath Procedures: 54394 Coronaries and LHC (+/-LV) Moderate Sedation Procedure 1: Sedation/Anesthesia: 44384 Mod Sedation by the same physician;Init15 Min Child Age 5 & Up PG Care Time/CCT Total # of Minutes Spent Total Time Spent with Patient: Total time spent is greater than 50% in coordination of care (as documented) at patient's floor/unit and/or counseling patient:
[2020-07-28] MEDS ORDERED: ATORVASTATIN 40 MG TAB PO SCH (21:00)
[2020-07-29 02:38] LABS: Partial Thromboplastin Ratio 1.5; Partial Thromboplastin Time 40.3 Seconds (21.0-31.0)
[2020-07-29] MEDS: ACETAMINOPHEN 325 MG TAB PO PRN (04:08)
[2020-07-29] MEDS: ESTRADIOL SCH ×2 (06:32→07:02)
[2020-07-29] MEDS: METOPROLOL SUCC 25MG EXT REL TAB PO SCH (08:13)
[2020-07-29] MEDS: VITAMIN B COMPLEX TAB PO SCH (08:13)
[2020-07-29] MEDS: CALCIUM 600MG + VIT D 400 IU TAB PO SCH (08:13)
[2020-07-29] MEDS: MEMANTINE HCL 5 MG TAB PO SCH (08:13)
[2020-07-29] MEDS: ASPIRIN 81 MG ECTAB PO SCH (08:13)
[2020-07-29] MEDS: FLECAINIDE ACETATE 100 MG TABLET PO SCH (08:13)
[2020-07-29] MEDS: CHOLECALCIFEROL 1,000 UNITS 25 MCG TAB PO SCH (08:13)
[2020-07-29] MEDS: DOCUSATE SODIUM 100 MG CAP PO SCH (08:14)
[2020-07-29 08:57] LABS: Basophils # (auto) 0.06 K/uL (0-0.2); Basophils % (auto) 0.9 %; Hematocrit (blood only) 39.4 % (37-47); Hemoglobin 13.4 g/dL (12.0-16.0); Immature Granulocytes # (auto) 0.01 K/uL (0.00-0.02); Immature Granulocytes % (auto) 0.2 %; Lymphocytes # (auto) 2.84 K/uL (1.2-3.4); Mean Corpuscular Hemoglobin 30.5 pg (25-34); Mean Corpuscular Volume 89.7 fL (80-100); Mean Platelet Volume 10.2 fL (7.4-10.4); Monocytes # (auto) 0.56 K/uL (0.11-0.59); Monocytes % (auto) 8.5 %; Neutrophils # (auto) 2.94 K/uL (1.4-6.5); Neutrophils % (auto) 44.4 %; Platelet Count 339 K/uL (130-400); RDW Coefficient of Variation 14.5 % (11.5-14.5); RDW Standard Deviation 47.9 fL (36.4-46.3); Red Blood Count 4.39 M/uL (4.2-5.4); White Blood Count 6.61 K/uL (4.8-10.8)
[2020-07-29 09:16] LABS: Partial Thromboplastin Ratio 2.4
[2020-07-29 09:20] LABS: Partial Thromboplastin Time 62.8 Seconds (21.0-31.0)
[2020-07-29 09:24] LABS: BUN Creatinine Ratio 11.1 (10-20); Calcium 9.1 mg/dl (8.5-10.1); Creatinine Clr Calc Pharmacy 71.7 ml/min; Est GFR (African American) 82.3; Potassium 4.1 mmol/L (3.5-5.1)
--- NOTE | 2020-07-29 10:17 | Cardiology Progress Note ---
Date of Service July 29, 2020 Assessment & Plan (1) Elevated troponin I level: Cardiac catheterization yesterday showed no significant CAD of major epicardial vessels. She did have severe disease in a small OM2 prior to mid segment occlusion. It is suspected that her presentation was due to the small OM2 vs hypertensive urgency. She is currently asymptomatic in regards to chest pain. Her blood pressure is currently well controlled. Continue aspirin, statin, and beta silvano therapy. (2) Paroxysmal atrial fibrillation: She remains in sinus rhythm. Since she has now been diagnosed with coronary artery disease, flecainide is technically contraindicated. Would therefore recommend discontinuing the medication upon discharge. Will arrange close follow-up in the office, and the decision can be made at that time if she is to be started on a different antiarrhythmic. Recommend continuing low dose beta silvano. Can resume anticoagulation therapy this morning. (3) Hypertension: BP currently well controlled. Continue current therapy. Recommend continued monitoring of BP as an outpatient and titrating antihypertensive therapy as an outpatient, if indicated. (4) Dyslipidemia: Given her CAD, recommend continuing statin therapy upon discharge. Patient was discussed with Dr. Delacruz, and the plan was made in collaboration with him. Admission and Anticipated Discharge Date Admission Date: July 27, 2020 Subjective She states that she is feeling well this morning and is ready to go home. She has had no further chest discomfort. She denies shortness of breath. She has not noted any lower extremity edema. She does admit to some back pain. Physical Exam Physical Exam: Constitutional: Alert, oriented, in no acute distress HEENT: Head is atraumatic and normocephalic. EOMs intact. Sclera non-icteric. Face is symmetric. No perioral cyanosis. Mucous membranes moist Neck: Supple, no JVD Pulmonary: Normal respiratory effort, clear to auscultation throughout Cardiac: Regular rate and rhythm, normal S1 and S2, no gallops, no rubs, no murmurs Extremities: No edema. No clubbing or cyanosis. 2+ radial pulses. Right radial access site is covered. Abdomen: Normal bowel sounds, soft, non-tender, no abdominal masses palpated Skin: Normal skin color, turgor, and pigmentation. No rash or skin lesions Neurological: Oriented to person, place, and time Results & Data ([facility]) Vital Signs (Past 12 Hours) Vital Signs Temp Pulse Pulse Resp BP Pulse Ox 07/29/20 08:00 59 L 07/29/20 07:15 97.9 F 85 20 117/68 93 07/29/20 04:05 97.9 F 64 18 123/81 93 07/28/20 23:38 97.7 F 73 12 150/75 H 96 Laboratory Results Laboratory Results - last 24 hr 07/28/20 07/29/20 07/29/20 12:19 02:06 08:46 WBC 6.61 RBC 4.39 Hgb 13.4 Hct 39.4 MCV 89.7 MCH 30.5 MCHC 34.0 RDW Std Deviation 47.9 H RDW Coeff of Malinda 14.5 Plt Count 339 MPV 10.2 Immature Gran % (Auto) 0.2 Neut % (Auto) 44.4 Lymph % (Auto) 43.0 [place] % (Auto) 8.5 Eos % (Auto) 3.0 Baso % (Auto) 0.9 Neut # (Auto) 2.94 Lymph # (Auto) 2.84 [place] # (Auto) 0.56 Eos # (Auto) 0.20 Baso # (Auto) 0.06 Immature Gran # (Auto) 0.01 APTT 75.4 H* 40.3 H PTT Ratio 2.9 1.5 Sodium Potassium Chloride Carbon Dioxide Anion Gap BUN Creatinine Est Cr Clr Drug Dosing Est GFR ( Amer) Est GFR (Non-Af Amer) BUN/Creatinine Ratio Glucose Calcium 07/29/20 07/29/20 08:46 08:47 WBC RBC Hgb Hct MCV MCH MCHC RDW Std Deviation RDW Coeff of Malinda Plt Count MPV Immature Gran % (Auto) Neut % (Auto) Lymph % (Auto) [place] % (Auto) Eos % (Auto) Baso % (Auto) Neut # (Auto) Lymph # (Auto) [place] # (Auto) Eos # (Auto) Baso # (Auto) Immature Gran # (Auto) APTT 62.8 H* PTT Ratio 2.4 Sodium 134 L Potassium 4.1 Chloride 102 Carbon Dioxide 28 Anion Gap 4.0 BUN 9 Creatinine 0.81 Est Cr Clr Drug Dosing 71.7 Est GFR ( Amer) 82.3 Est GFR (Non-Af Amer) 71.0 BUN/Creatinine Ratio 11.1 Glucose 103 H Calcium 9.1 Diagnostic Findings Cardiac cath 07/28/20: 1. No significant coronary artery disease of major epicardial vessels 2. Small branch vessel disease severe disease in small OM2 prior to mid segment occlusion (vessel < 2 mm). 2. Normal intracardiac filling pressure. Normal LV systolic function. 1+ mi tral regurgitation. Telemetry: Sinus rhythm in the 60s-70s. PG Care Time/CCT Total # of Minutes Spent Total Time Spent with Patient: Total time spent is greater than 50% in coordination of care (as documented) at patient's floor/unit and/or counseling patient: Coding Level of Care Code 17409 Subseq Hosp Care Lvl 2 Diagnoses Elevated troponin I level R77.8 Paroxysmal atrial fibrillation I48.0 Hypertension I10 Dyslipidemia E78.5
--- NOTE | 2020-07-29 11:23 | Hospitalist Progress Note ---
Date of Service July 29, 2020 Assessment & Plan (1) Non-ST elevation CO (NSTEMI): She underwent heart catheterization yesterday, July 28. A very small occluded OM 2 branch was seen with no other significant findings. She is a candidate for medical management at this time. Flecainide will be discontinued per cardiology recommendations. She was treated with a heparin drip per protocol. All other medications remain the same. Appreciate cardiology consultation and recommendations. (2) Paroxysmal atrial fibrillation: No recent recurrences. Telemetry as of 07/28 was in sinus rhythm still. -- She takes Flecainide 100 mg b.i.d. and Eliquis 5 mg b.i.d. Flecainide however will need to be discontinued -- Continue Metoprolol Succinate ER 12.5 mg daily. (3) Chronic diastolic congestive heart failure: Stable. Continue current medical management. (4) Obstructive sleep apnea: CPAP as needed in the hospital (5) DVT prophylaxis: On heparin gtt for NSTEMI : Home today, July 29. Flecainide has been discontinued Admission and Anticipated Discharge Date Admission Date: July 27, 2020 Subjective Alert and oriented. She denies chest discomfort. She is hemodynamically stable. Cardiology entry noted. Flecainide will be discontinued. All other medications remain the same. She will be discharged home today and follow-up with cardiology within the next week or 2. Review of Systems Review of Systems: All systems reviewed & are unremarkable except as noted in HPI & below Physical Exam Physical Exam: General-alert and oriented x3, no fevers, no chills HEENT-head atraumatic and normocephalic, TMs intact bilaterally, pupils equal and reactive to light, extraocular muscles intact Neck-no lymphadenopathy or thyromegaly, trachea midline Chest-clear to auscultation percussion. No rales wheezing or rhonchi Cardiac-regular rate and rhythm, normal S1 and S2, no murmurs Abdomen-normal bowel sounds, nontender, no hepatosplenomegaly Extremities-no cyanosis, clubbing, or edema Neuro-cranial nerves II through XII intact, motor and sensory function within normal limits, strength symmetrical 5/5, no focal deficits Psych-normal affect, normal mood Results & Data Results & Data ([facility]) Vital Signs (Past 12 Hours) Vital Signs Temp Pulse Pulse Resp BP Pulse Ox 07/29/20 08:00 59 L 07/29/20 07:15 36.6 C 85 20 117/68 93 07/29/20 04:05 36.6 C 64 18 123/81 93 07/28/20 23:38 36.5 C 73 12 150/75 H 96 Laboratory Results 07/29/20 08:46 07/29/20 08:46 PG Care Time/CCT Total # of Minutes Spent Total Time Spent with Patient: Total time spent is greater than 50% in key account coordinator rdination of care (as documented) at patient's floor/unit and/or counseling patient: Coding Level of Care Code 55748 Subseq Hosp Care Lvl 3 Diagnoses Non-ST elevation CO (NSTEMI) I21.4 Paroxysmal atrial fibrillation I48.0 Chronic diastolic congestive heart failure I50.32 Obstructive sleep apnea G47.33 DVT prophylaxis Z29.9
[2020-07-29] MEDS ORDERED: APIXABAN 5 MG TABLET PO SCH (13:15)
--- NOTE | 2020-07-30 14:35 | Discharge Summary ---
Date of Service July 30, 2020 Admission HPI Per Admitting Provider Mrs. Maxwell is a 75-year-old female with a history of Paroxysmal Atrial Fibrillation (diagnosed 04/15/2018) s/p Elective Electrical Cardioversion x 2, PSVT, PAC's, Mild Pulmonary Hypertension, Paroxysmal Atrial Tachycardia, AASHSIH, Osteoarthritis, Anxiety, Migraine Headache, Headaches, Fatigue, Mild Cognitive Impairment, and Syncope s/p [employer] LINQ Implantable Loop Recorder 12/05/2019 -- who was referred to the ER from [facility] earlier today for evaluation of Chest Pain and a newly Abnormal EKG showing mild ST elevations in leads I and aVL. In the ER, her initial Troponin I is elevated at 1.910 ng/ml. Patient was making lunch yesterday at around 12:00 pm and was not feeling well/she felt nauseated. She thought she could vomit was unable. She then felt tired and did not feel well in general, so she rested all afternoon. Last evening she went to evening christianity services, and while there she developed pain across her chest. She describes the discomfort as a "crushing pain" in her chest. The discomfort was worse with taking deep breaths and when walking. She admits to associated dyspnea with the discomfort and also felt "funny" in her stomach. She felt as though she was more short of breath but she thinks this was likely due to the fact that she could not take deep breaths without worsening of her chest pain. She went home and took her blood pressure. It was initially elevated at 186/83 mmHg and then came down to 142/92 mmHg on recheck about 20 minutes later. She slept through the night, but today has had intermittent discomfort in her chest. She has this chest pressure now with mild associated dyspnea, but denies any associated nausea, vomiting, or diaphoresis. Patient denies any symptoms or changes in her exertional tolerance before yesterday. However her daughter arrived and states that her mother has been "really fatigued lately and has slowed down over the past couple of months". She has had the following studies: 1. Dobutamine Stress Echocardiogram 05/06/11: -- Negative for ischemia at 89% MPHR. Positive EKG. No chest pain. Normal LV size and systolic function. Mild MR. 2. Dobutamine Stress Echocardiogram 07/03/12: -- Negative at 93% MPHR. LVEF 60%. Mild MR. 3. CTA of Aorta 12/24/12: -- No aneurysm reported. 4. Holter Monitor 01/06/2014: -- Sinus rhythm with average heart rate 74 bpm. Blunted diurnal heart rate variation. No ectopy. No arrhythmia. -- Shoulder pain during lifting occurred during normal sinus rhythm. 5. Echocardiogram 09/14/2015: -- Normal LV size, wall motion, systolic function. LVEF 60%. No significant valvular abnormalities. 6. Dobutamine Stress Echocardiogram 02/23/2016: -- Abnormal at 100% MPHR suggesting distal LAD ischemia. Apical wall segments appear hypokinetic at peak stress. PVCs. No arrhythmia. Chest pain reported. 7. Cardiac Catheterization 03/15/2016: -- No significant CAD. LVEDP 15mmHg. No aortic stenosis. Normal cardiac output. Normal PCWP. PA pressure 37/11 with mean of 20. 8. Cardiac Event Monitor 04/05/2016 to 05/04/2016: -- Predominantly sinus rhythm. Paroxysmal SVT and atrial tachycardia. SVT up to 17 beats. No symptoms reported. 9. Echocardiogram 10/10/2017: -- Normal LV size, wall motion, systolic function. LVEF 60%-65%. No LVH. No significant diastolic dysfunction. Mild to moderate MR. RVSP 31 mmHg. 10. DC CV 06/21/2018: -- Elective. -- 150 Joules converted AFib to sinus rhythm. 11. DC Cardioversion 04/29/2019: -- Converted from A-Fib to sinus bradycardia. -- Patient on Flecainide leading up to this procedure. 12. CARDIAC EVENT MONITOR 09/27/2019 to 10/10/2019: -- Predominantly sinus rhythm with average HR of 67 bpm. -- One 14 beat of PSVT at 148 bpm. -- PAC's represented < 2% of all recorded beats. -- Two undisclosed symptom episodes correlated with normal sinus rhythm. 13. ECHOCARDIOGRAM 10/04/2019: -- Normal LV size, wall motion, wall thickness, and systolic function. -- LVEF 60% to 65%. -- Mild MR. -- Estimated RVSP 38 mmHg. -- Rhythm was sinus bradycardia in the 50's. 14. PFT's 10/02/2019: -- Improved FEV1 and FEF 25%-75% following bronchodilator. -- DLCO is mildly reduced. 15. Loop recorder 12/05/2019: Medtronic LINQ loop recorder implanted by Dr. Powers. Implanted for syncope. Principal Diagnosis Non-ST elevation UT Discharge Data Allergies Allergy/AdvReac Type Severity Reaction Status Date / Time latex Allergy Rash Verified 07/27/20 13:36 amoxicillin AdvReac Intermediate YEAST Verified 07/27/20 13:36 INFECTION Cephalosporins AdvReac Intermediate YEAST Verified 07/27/20 13:36 INFECTION clavulanic acid AdvReac Intermediate YEAST Verified 07/27/20 13:36 INFECTION prednisone AdvReac Intermediate ANXIETY Verified 07/27/20 13:36 gluten AdvReac Verified 07/29/20 09:24 Consultations 07/27/20 14:07 ED Decision to Admit Stat 07/28/20 07:59 Consult Cardiology Routine Procedures Performed Operation Date: 07/28/20 12:00 Actual Procedures p Cath, Left with Cors and Vent - Brien Rico MD s Cineradiography w/Routine Exam - Brien Rico MD Ordered Studies 07/28/20 09:28 CL Cath Imgs for PACS use only Routine Hospital Course (1) Non-ST elevation UT (NSTEMI): She underwent heart catheterization yesterday, July 28. A very small occluded OM 2 branch was seen with no other significant findings. She is a candidate for medical management at this time. Flecainide will be discontinued per cardiology recommendations. She was treated with a heparin drip per protocol. All other medications remain the same. Appreciate cardiology consultation and recommendations. (2) Paroxysmal atrial fibrillation: No recent recurrences. Telemetry as of 07/28 was in sinus rhythm still. -- She takes Flecainide 100 mg b.i.d. and Eliquis 5 mg b.i.d. Flecainide however will need to be discontinued -- Continue Metoprolol Succinate ER 12.5 mg daily. (3) Chronic diastolic congestive heart failure: Stable. Continue current medical management. (4) Obstructive sleep apnea: CPAP as needed in the hospital (5) DVT prophylaxis: On heparin gtt for NSTEMI : Home today, July 29. Flecainide has been discontinued Total Time Total Time Spent Total Time Spent (In Minutes): 35 minutes Total Time Includes: Examination of the Patient, Discharge Planning and Medication Reconciliation Discharge Plan Discharge Items Patient Disposition: Home - Self-Care Reason For Visit: CHEST PAIN, ABN EKG, ELEVATED TROP Discharge Diagnosis: NSTEMI Activity: Resume your previous activity Non-emergency contact: Primary Care Provider Call non-emergency contact if: you have any medication questions Follow-up/Referrals: Sravan Figueroa MD [Primary Care Provider] - 08/03/20 10:15 am Diet: Heart Healthy Addtl Attending Provider Instructions: Flecainide has been discontinued Pending Studies at Discharge: No Stand-Alone Forms: My [facility] [employer], Smoking Cessation Medications and DC Order Prescriptions: New atorvastatin 40 mg Tablet 40 mg PO HS Qty: 30 RF: 0 nitroglycerin [Nitrostat] 0.4 mg Tablet, Sublingual See Rx Instructions .ROUTE .COMPLEX PRN (Reason: chest pain) Qty: 25 RF: 0 aspirin 81 mg Tablet,Delayed Release (Dr/Ec) 81 mg PO QAM Qty: 30 RF: 0 Continued Eliquis 5 mg tablet 5 mg PO BID Qty: 180 RF: 3 estradiol 0.075 mg/24 hr patch weekly 1 patch topical YARBROUGH Qty: 4 RF: 12 furosemide [Lasix] 40 mg tablet 40 mg PO DAILY PRN (Reason: Fluid Retention) Qty: 30 RF: 2 Neuriva Original 50-50 mg tablet,chewable 1 tab PO QAM RF: 0 memantine 5 mg tablet 5 mg PO BID Qty: 180 RF: 1 CPAP Machine Misc See Rx Instructions .ROUTE .COMPLEX Qty: 1 RF: 0 calcium carbonate [Calcium 600] 600 mg calcium (1,500 mg) Tablet 1,200 mg PO QAM RF: 0 cholecalciferol (vitamin D3) [Vitamin D3] 25 mcg (1,000 unit) Capsule 1,000 unit PO QAM RF: 0 docusate sodium 100 mg Capsule 300 mg PO QAM RF: 0 vitamin B complex Tablet 1 tab PO QAM RF: 0 acetaminophen 325 mg Tablet 650 mg PO Q4H PRN (Reason: pain) Qty: 30 RF: 0 metoprolol succinate 25 mg tablet extended release 24 hr 12.5 mg PO QAM RF: 0 Discontinued flecainide 100 mg tablet 100 mg PO Q12H Qty: 60 RF: 3 Discharge Orders: Discharge Order (Routine); Ordered 07/29/20 Ordered By: Saúl Torres Admission Data Admit Date/Time: 07/27/20 18:10 Attending Provider: Saúl Torres Admit Provider: Ismael Lawrence Primary Care Provider: Sravan Figueroa Other Providers: Zachary Christy ; Sravan Apodaca Other Interventions: Discharge Summary Assessment (RN) Last Done: 07/29/20 11:57 Coding Level of Care Code D/C Day Management >30 mins Diagnoses Non-ST elevation [place] (NSTEMI) I21.4 Paroxysmal atrial fibrillation I48.0 Chronic diastolic congestive heart failure I50.32 Obstructive sleep apnea G47.33 DVT prophylaxis Z29.9
== END 2020-07-29 14:29 | disposition home or self-care (01) | DRG 281 ==
LOC: ED 12:56 → SUATTDRO 18:10 → EDINP 18:10 → 2S 07-28 02:00

== ENCOUNTER 2021-02-14 07:05 | Observation (INO) ==
[2021-02-14] MEDS ORDERED: MECLIZINE HCL 25 MG TAB PO STA (07:21)
[2021-02-14] MEDS ORDERED: SODIUM CHLORIDE 0.9% 1000ML 500 ML IV ONE (07:21)
[2021-02-14] MEDS ORDERED: ASPIRIN CHEW 324 MG PO STA (07:21)
--- NOTE | 2021-02-14 07:26 | Emergency Department Note ---
Impression & Plan Chest pressure, Afib, Vertigo, Acute hyponatremia ED Provider Note NAME: SPARKLE BROWN AGE: 75 SEX: F : 1945 ARRIVES VIA: Ambulance INFORMANT: Patient ED PROVIDER(S): Ruddy Solis DO CHIEF COMPLAINT: Chest pain and dizziness HPI: Patient is a 35-year-old female who presents ER with a past medical history of CAD, A. fib anticoagulated, memory loss, subdural hematoma, and celiac disease who presents to the ER for dizziness. She notes that she has a history of vertigo several years ago. She has been very dizzy. It improves with keeping her head still. Associated with that she has some vomiting. She denies any weakness in her arms or legs. She admits to midsternal chest heaviness. She feels as though someone is sitting on her chest. That started around the same time. She denies any shortness of breath arm or jaw pain with it. No handy y pain. Denies any dysuria urgency and frequency. ROS: See above HPI for pertinent positives & negatives. A total of 10 systems reviewed and were otherwise negative. PAST MEDICAL HISTORY:See Below PAST SURGICAL HISTORY:See Below FAMILY HISTORY:See Below SOCIAL HISTORY:See Below HOME MEDICATIONS:See Below ALLERGIES:See Below VITALS:See Below PHYSICAL EXAMINATION: GENERAL: Sitting up in bed, alert, disheveled, chronically ill-appearing EYE EXAM: normal conjunctiva. PERRL and EOM's intact. Leftward nystagmus with right gaze. OROPHARYNX: no exudate, no erythema, lips, buccal mucosa, and tongue normal and mucous membranes are moist NECK: supple, no nuchal rigidity, no adenopathy, non-tender LUNGS: Clear to auscultation. Normal chest wall mechanics HEART: no murmurs, S1 normal and S2 normal ABDOMEN: abdomen soft, non-tender, normo-active bowel sounds, no masses, no rebound or guarding. UPPER EXTREMITIES: upper extremities are grossly normal. LOWER EXTREMITIES: No pitting edema. NEURO EXAM: Normal sensorium, cranial nerves II-XII intact, normal speech, no weakness of arms, no weakness of legs. No drift. Finger to nose intact. Gross sensation intact. MEDICAL DECISION MAKING: Patient is a 75-year-old female with past medical history of CAD and multiple in the comorbidities who presents the ER for dizziness as well as chest pressure. IV was established blood was obtained. Labs show no significant leukocytosis and mild anemia. BMP with mild hyponatremia 133. LFTs bilirubin and troponin were negative. Lipase was unremarkable. Covid was negative. She was given IV fluids, Antivert and aspirin. Her chest pain resolved prior to the administration of nitro. CT head was negative. Chest x-ray was unremarkable. EKG was nondiagnostic. She was not in a rapid rate in regards to her A. fib. Anytime she moves she feels significantly worse and does vomit. This in combination with the chest pressure with known CAD discussed the hospitalist for further evaluation. Triage Nursing notes reviewed. Limited review of prior medical records performed Vital Signs: reviewed and remarkable for no significant abnormalities Differential diagnosis: Differential diagnoses includes but is not limited to acute coronary syndrome, myocardial infarction, pericarditis, pulmonary embolus, aortic dissection, pneumonia, pneumothorax, musculoskeletal, shingles, esophageal. ER treatment provided: See below Diagnostics interpreted by me: ECG: A. fib rate 84 Normal axis No PVCs QTC 493 Cardiac Monitoring: An order was placed for continuous cardiac monitoring. The monitor shows a rate of 82 with sinus rhythm. Laboratory studies: As stated above and show below. Imaging studies: CT head was negative Portable AP upright 1 view the chest was unremarkable Consultation(s): Discussed with Andrey Guevara for further evaluation. Patient was later seen by Jesus Manuel Noland Procedures: none Critical Care: None Past Med/Surg History Medical History Atrial fibrillation Follows w/ taras Bass CAD (coronary artery disease) Medically managed by cardiology CD (celiac disease) "Does not" follow gluten-free diet Degenerative disc disease Diastolic CHF Diverticulitis 2013 History of paroxysmal supraventricular tachycardia Low back pain with sciatica Non-ST elevation MD (NSTEMI) 07/27/20 Ocular migraine Osteoarthritis Sleep apnea CPAP Surgical History History of arthroscopy of right shoulder RCR History of cardiac cath 2016, 07/28/20 ([place]) > no stents History of cardioversion x2, most recent 04/2019 History of carpal tunnel release R/L History of cataract surgery History of cholecystectomy History of colonoscopy History of esophagogastroduodenoscopy (EGD) History of foot surgery R/L feet "to straighten toes" History of fracture of left shoulder Plate + screws History of hysterectomy JOANNA + BSO History of incision and drainage Right foot History of tonsillectomy History of total knee replacement Left x2, right x1 Status post placement of implantable loop recorder Implanted 12/2019 Family History Mother Family hx of colon cancer Colorectal cancer Brother Prostate cancer Family history of diabetes mellitus Father Dissecting aortic aneurysm Myocardial infarction Grandmother (Maternal) Stroke Other No family history of adverse response to anesthesia Denies family history of Ovarian cancer Breast cancer Social History Smoking Status: Former smoker Tobacco Type: Cigarettes Age Started Using Tobacco: 19; Age Quit Using Tobacco: 27; packs per day: 0.25; Years Smoked: 8; Second Hand Exposure: No; Hx Alcohol Use: No Hx Substance Use: No Preferred Language: Welsh Communication Ability: Effective 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 Beliefs That Will Affect Care: None marital status: Current Living Situation: Spouse Current Living Situation Comment: Lives with current occupational status: retired other: [employer]; worked at [employer]; 3 children Feels Safe at Home: Yes Childhood Exposure to Second-Hand Smoke: No Dental Care, Regularly: Yes Seatbelt Use: always Sunscreen Use: Yes Assistive Devices: CPAP and Glasses Allergies Allergies Allergy/AdvReac Type Severity Reaction Status Date / Time gluten Allergy Intermediate Celiac Verified 02/14/21 09:12 disease latex Allergy Mild Rash Verified 02/14/21 09:12 amoxicillin AdvReac Intermediate Yeast Verified 02/14/21 09:12 infection cefdinir AdvReac Intermediate nausea Verified 02/14/21 09:12 Cephalosporins AdvReac Intermediate Yeast Verified 02/14/21 09:12 infection clavulanic acid AdvReac Intermediate Yeast Verified 02/14/21 09:12 infection prednisone AdvReac Intermediate Anxiety Verified 02/14/21 09:12 Home Meds Home Medications Medication Instructions Recorded Confirmed docusate sodium 100 mg capsule 300 mg PO QAM 04/15/18 02/14/21 vitamin B complex 1 tab PO QAM 04/15/18 02/14/21 calcium carbonate 600 mg calcium 1,200 mg PO QAM 06/08/19 02/14/21 (1,500 mg) tablet (Calcium) cholecalciferol (vitamin D3) 25 1,000 unit PO QAM 06/08/19 02/14/21 mcg (1,000 unit) capsule (Vitamin D3) coffee extract 50 mg-phosphatidyl 1 tab PO QAM tab 06/04/20 02/14/21 serine 50 mg chewable tablet (Neuriva Original) metoprolol succinate 25 mg 12.5 mg PO QAM 02/01/21 02/14/21 tablet,extended release 24 hr furosemide 40 mg tablet (Lasix) 40 mg PO BID 02/14/21 02/14/21 Previous Rx's Medication Instructions Recorded acetaminophen 325 mg tablet 650 mg PO Q4H PRN #30 tab 09/22/19 CPAP Machine See Rx Instructions .ROUTE 05/20/20 .COMPLEX #1 ea aspirin 81 mg tablet,delayed 81 mg PO QAM #30 tab 07/29/20 release nitroglycerin 0.4 mg sublingual See Rx Instructions .ROUTE 07/29/20 tablet (Nitrostat) .COMPLEX PRN #25 tab apixaban 5 mg tablet (Eliquis) 5 mg PO BID #180 tab 10/08/20 memantine 10 mg tablet 10 mg PO BID #180 tab 12/09/20 fluticasone propionate 50 1 spray INTRANASAL DAILY #16 g 02/01/21 mcg/actuation nasal spray,suspension (Flonase Allergy Relief) amiodarone 200 mg tablet 200 mg PO BID #60 tab 02/05/21 estradiol 0.075 mg/24 hr weekly 1 patch TOPICAL YARBROUGH #4 ea 02/10/21 transdermal patch potassium chloride 20 mEq 20 meq PO DAILY #30 tab 02/10/21 tablet,extended release rosuvastatin 40 mg tablet (Crestor) 40 mg PO DAILY #90 tab 02/10/21 Results & Data (ED) Vital Signs Vital Signs - 24 hr 02/14/21 07:20 02/14/21 07:37 02/14/21 08:14 Temperature 36.6 C Temperature Source Oral Pulse Rate 77 76 Pulse Rate from SpO2 Sensor 79 Respiratory Rate 18 22 Blood Pressure 123/66 Blood Pressure Mean 85 Pulse Oximetry 99 97 91 Oxygen Delivery Method Room Air Room Air Sepsis Recent Fever Within 48 Hours No Sepsis New/Unexplained Change in Mental Status N/A Sepsis Action Taken by Nursing No Action Required 02/14/21 08:20 02/14/21 08:30 02/14/21 08:40 Temperature Temperature Source Pulse Rate 75 72 81 Pulse Rate from SpO2 Sensor 81 85 Respiratory Rate 18 23 19 Blood Pressure Blood Pressure Mean Pulse Oximetry 100 100 Oxygen Delivery Method Sepsis Recent Fever Within 48 Hours Sepsis New/Unexplained Change in Mental Status Sepsis Action Taken by Nursing 02/14/21 08:50 02/14/21 09:00 02/14/21 09:10 Temperature Temperature Source Pulse Rate 67 80 75 Pulse Rate from SpO2 Sensor 70 74 Respiratory Rate 26 H 15 16 Blood Pressure Blood Pressure Mean Pulse Oximetry 97 97 Oxygen Delivery Method Sepsis Recent Fever Within 48 Hours Sepsis New/Unexplained Change in Mental Status Sepsis Action Taken by Nursing 02/14/21 09:20 02/14/21 09:30 02/14/21 09:40 Temperature Temperature Source Pulse Rate 86 73 80 Pulse Rate from SpO2 Sensor 85 83 Respiratory Rate 16 Blood Pressure Blood Pressure Mean Pulse Oximetry 90 93 Oxygen Delivery Method Sepsis Recent Fever Within 48 Hours Sepsis New/Unexplained Change in Mental Status Sepsis Action Taken by Nursing 02/14/21 09:50 02/14/21 10:00 02/14/21 13:24 Temperature Temperature Source Pulse Rate 80 88 97 H Pulse Rate from SpO2 Sensor 81 84 Respiratory Rate 17 24 18 Blood Pressure 133/73 119/66 Blood Pressure Mean 93 Pulse Oximetry 100 100 97 Oxygen Delivery Method Room Air Sepsis Recent Fever Within 48 Hours Sepsis New/Unexplained Change in Mental Status Sepsis Action Taken by Nursing Laboratory Data Result diagrams: 02/14/21 07:36 02/14/21 08:57 Lab Results 02/14/21 02/14/21 02/14/21 Range/Units 07:36 07:36 08:45 WBC 10.10 (4.8-10.8) K/uL RBC 3.92 L (4.2-5.4) M/uL Hgb 11.1 L (12.0-16.0) g/dL Hct 33.9 L (37-47) % MCV 86.5 (80-100) fL MCH 28.3 (25-34) pg MCHC 32.7 (32-36) g/dL RDW Std Deviation 44.5 (36.4-46.3) fL RDW Coeff of Malinda 14.3 (11.5-14.5) % Plt Count 362 (130-400) K/uL MPV 10.1 (7.4-10.4) fL Immature Gran % (Auto) 0.2 % Neut % (Auto) 66.6 % Lymph % (Auto) 25.4 % Worth % (Auto) 6.7 % Eos % (Auto) 0.7 % Baso % (Auto) 0.4 % Neut # (Auto) 6.72 H (1.4-6.5) K/uL Lymph # (Auto) 2.57 (1.2-3.4) K/uL Worth # (Auto) 0.68 H (0.11-0.59) K/uL Eos # (Auto) 0.07 (0-0.5) K/uL Baso # (Auto) 0.04 (0-0.2) K/uL Immature Gran # (Auto) 0.02 (0.00-0.02) K/uL Sodium 133 L (136-145) mmol/L Potassium (3.5-5.1) mmol/L Chloride 103 (98-107) mmol/L Carbon Dioxide 24 (21-32) mmol/L Anion Gap 7.0 (3-11) BUN 13 (7-18) mg/dl Creatinine 1.00 (0.6-1.2) mg/dl Est Cr Clr Drug Dosing 60.5 ml/min Est GFR ( Amer) 63.8 ml/min Est GFR (Non-Af Amer) 55.1 ml/min BUN/Creatinine Ratio 13.1 (10-20) Glucose 126 H (70-99) mg/dl Calcium 8.9 (8.5-10.1) mg/dl Total Bilirubin 0.6 (0.2-1) mg/dl AST (15-37) U/L ALT 25 (12-78) U/L Alkaline Phosphatase 101 (45-117) U/L Troponin I < 0.015 (0-0.045) ng/ml Total Protein 8.0 (6.4-8.2) gm/dl Albumin 3.2 L (3.4-5.0) gm/dl Globulin 4.8 H (2.5-4.0) gm/dl Albumin/Globulin Ratio 0.7 L (0.9-2) Lipase 70 L (73-393) U/L COVID-19 Eval Order Covid19 at [facility] SARS-CoV-2 (PCR) (Negative) 02/14/21 02/14/21 Range/Units 08:45 08:57 WBC (4.8-10.8) K/uL RBC (4.2-5.4) M/uL Hgb (12.0-16.0) g/dL Hct (37-47) % MCV (80-100) fL MCH (25-34) pg MCHC (32-36) g/dL RDW Std Deviation (36.4-46.3) fL RDW Coeff of Malinda (11.5-14.5) % Plt Count (130-400) K/uL MPV (7.4-10.4) fL Immature Gran % (Auto) % Neut % (Auto) % Lymph % (Auto) % Worth % (Auto) % Eos % (Auto) % Baso % (Auto) % Neut # (Auto) (1.4-6.5) K/uL Lymph # (Auto) (1.2-3.4) K/uL Worth # (Auto) (0.11-0.59) K/uL Eos # (Auto) (0-0.5) K/uL Baso # (Auto) (0-0.2) K/uL Immature Gran # (Auto) (0.00-0.02) K/uL Sodium (136-145) mmol/L Potassium 3.5 (3.5-5.1) mmol/L Chloride (98-107) mmol/L Carbon Dioxide (21-32) mmol/L Anion Gap (3-11) BUN (7-18) mg/dl Creatinine (0.6-1.2) mg/dl Est Cr Clr Drug Dosing ml/min Est GFR ( Amer) ml/min Est GFR (Non-Af Amer) ml/min BUN/Creatinine Ratio (10-20) Glucose (70-99) mg/dl Calcium (8.5-10.1) mg/dl Total Bilirubin (0.2-1) mg/dl AST 13 L (15-37) U/L ALT (12-78) U/L Alkaline Phosphatase (45-117) U/L Troponin I (0-0.045) ng/ml Total Protein (6.4-8.2) gm/dl Albumin (3.4-5.0) gm/dl Globulin (2.5-4.0) gm/dl Albumin/Globulin Ratio (0.9-2) Lipase (73-393) U/L COVID-19 Eval Order SARS-CoV-2 (PCR) NEGATIVE (Negative) Administered Medications Nitroglycerin (Nitroglycerin 2% Ointment 30gm Tube) 0.5 inch EXT Q6 MERLIN Stop: 03/16/21 11:14 Last Admin: 02/14/21 12:10 Dose: 0.5 inch Documented by: [id number] Discontinued Medications Aspirin (Aspirin Chew 324 Mg) 324 mg PO NOW STA Stop: 02/14/21 07:22 Last Admin: 02/14/21 07:41 Dose: 324 mg Documented by: [id number] Sodium Chloride (Nss 1000ml) 500 mls @ 999 mls/hr IV .Q31M ONE Stop: 02/14/21 07:51 Last Infusion: 02/14/21 11:21 Dose: 0 mls/hr Documented by: [id number] Admin: 02/14/21 07:38 Dose: 999 mls/hr Documented by: [id number] Meclizine HCl (Meclizine Hcl 25 Mg Tab) 25 mg PO NOW STA Stop: 02/14/21 07:22 Last Admin: 02/14/21 07:42 Dose: 25 mg Documented by: [id number] Ondansetron HCl (Ondansetron Inj 2 Mg/Ml 2 Ml Vial) 4 mg IV NOW STA Stop: 02/14/21 08:26 Last Admin: 02/14/21 08:42 Dose: 4 mg Documented by: [id number] Imaging Data Radiologist's Impression: Head CT 02/14/21 07:21 CT head/brain wo con CLINICAL HISTORY: dizzy Technique: Contiguous axial CT images of the head were acquired from the base of the skull to the vertex without intravenous contrast administration. Images were viewed in brain, subdural and bone windows. Automated dose lowering techniques and/or adjustment according to patient size were utilized for this exam. Comparison: Comparison is made to CT head 09/19/2019 Findings: Areas of decreased attenuation are present in the periventricular and subcortical white matter bilaterally consistent with small vessel ischemic disease. Generalized cerebral atrophy with commensurate enlargement of the ventricles, sulci, and cisterns is also present. There is no acute intracranial hemorrhage or evidence of acute territorial infarction. No shift of the midline structures, mass effect, or extra-axial abnormalities are shown. Atherosclerotic calcifications are present in the intracranial segments of the internal carotid arteries. Imaged portions of the paranasal sinuses and mastoid air cells are clear. The orbits appear normal. There are no acute fractures of the calvaria or scalp swelling. Impression: No acute intracranial hemorrhage, no evidence of acute territorial infarction or other acute intracranial disease process. ACT 112: Negative or not required by law. Electronically signed by: Andrey Carrasco M.D. 02/14/2021 8:04 AM Chest X-Ray 02/14/21 07:22 XR chest 1V portable CLINICAL HISTORY: Chest Pain. COMPARISON STUDY: 01/25/2021 TECHNIQUE: 1 view of the chest FINDINGS: Single frontal view of the chest demonstrates the cardiomediastinal silhouette to be within normal limits. A loop recorder is in place. The lungs are clear of alveolar opacities. There is no evidence for pleural effusion. There is no evidence for vascular congestion. There is no acute osseous pathology. IMPRESSION: No acute cardiopulmonary disease. ACT 112: Negative or not required by law. Electronically signed by: Max Matthews M.D. 02/14/2021 7:36 AM Discharge Plan Visit Data Chief Complaint: Chest Pain Stated Complaint: CHEST PAIN ED Provider: Ruddy Solis Discharge Problem: Chest pressure, Afib, Vertigo, Acute hyponatremia Patient Disposition: Admitted As Inpatient Discharge Instructions Interventions: ED Discharge Assessment Last Done: 02/14/21 13:24 Forms Stand Alone Forms: [facility] Prescriptions Prescriptions: No Action Eliquis 5 mg tablet 5 mg PO BID Qty: 180 RF: 3 amiodarone 200 mg tablet 200 mg PO BID Qty: 60 RF: 5 estradiol 0.075 mg/24 hr patch weekly 1 patch topical YARBROUGH Qty: 4 RF: 12 memantine 10 mg tablet 10 mg PO BID Qty: 180 RF: 3 potassium chloride 20 mEq tablet extended release 20 meq PO DAILY Qty: 30 RF: 2 rosuvastatin [Crestor] 40 mg tablet 40 mg PO DAILY Qty: 90 RF: 3 Neuriva Original 50-50 mg tablet,chewable 1 tab PO QAM RF: 0 fluticasone propionate [Flonase Allergy Relief] 50 mcg/actuation spray,suspension 1 spray intranasal DAILY Qty: 16 RF: 2 CPAP Machine Misc See Rx Instructions .ROUTE .COMPLEX Qty: 1 RF: 0 calcium carbonate [Calcium 600] 600 mg calcium (1,500 mg) Tablet 1,200 mg PO QAM RF: 0 cholecalciferol (vitamin D3) [Vitamin D3] 25 mcg (1,000 unit) Capsule 1,000 unit PO QAM RF: 0 docusate sodium 100 mg Capsule 300 mg PO QAM RF: 0 vitamin B complex Tablet 1 tab PO QAM RF: 0 acetaminophen 325 mg Tablet 650 mg PO Q4H PRN (Reason: pain) Qty: 30 RF: 0 nitroglycerin [Nitrostat] 0.4 mg Tablet, Sublingual See Rx Instructions .ROUTE .COMPLEX PRN (Reason: chest pain) Qty: 25 RF: 0 aspirin 81 mg Tablet,Delayed Release (Dr/Ec) 81 mg PO QAM Qty: 30 RF: 0 metoprolol succinate 25 mg Tablet Extended Release 24 Hr 12.5 mg PO QAM RF: 0 furosemide [Lasix] 40 mg tablet 40 mg PO BID RF: 0 Referrals Referrals: Sravan Figueroa MD [Primary Care Provider] -
--- NOTE | 2021-02-14 07:37 | XRay Report ---
XR chest 1V portable CLINICAL HISTORY: Chest Pain. COMPARISON STUDY: 01/25/2021 TECHNIQUE: 1 view of the chest FINDINGS: Single frontal view of the chest demonstrates the cardiomediastinal silhouette to be within normal li mits. A loop recorder is in place. The lungs are clear of alveolar opacities. There is no evidence fo r pleural effusion. There is no evidence for vascular congestion. There is no acute osseous pathology . IMPRESSION: No acute cardiopulmonary disease. ACT 112: Negative or not required by law. Electronically signed by: Max Matthews M.D. 02/14/2021 7:36 AM
[2021-02-14 07:46] LABS: Basophils # (auto) 0.04 K/uL (0-0.2); Basophils % (auto) 0.4 %; Eosinophils # (auto) 0.07 K/uL (0-0.5); Eosinophils % (auto) 0.7 %; Hematocrit (blood only) 33.9 % (37-47); Hemoglobin 11.1 g/dL (12.0-16.0); Immature Granulocytes # (auto) 0.02 K/uL (0.00-0.02); Immature Granulocytes % (auto) 0.2 %; Lymphocytes # (auto) 2.57 K/uL (1.2-3.4); Lymphocytes % (auto) 25.4 %; Mean Corpuscular Hemoglobin 28.3 pg (25-34); Mean Corpuscular Hgb Conc 32.7 g/dL (32-36); Mean Corpuscular Volume 86.5 fL (80-100); Mean Platelet Volume 10.1 fL (7.4-10.4); Monocytes # (auto) 0.68 K/uL (0.11-0.59); Monocytes % (auto) 6.7 %; Neutrophils # (auto) 6.72 K/uL (1.4-6.5); Neutrophils % (auto) 66.6 %; Platelet Count 362 K/uL (130-400); RDW Coefficient of Variation 14.3 % (11.5-14.5); RDW Standard Deviation 44.5 fL (36.4-46.3); Red Blood Count 3.92 M/uL (4.2-5.4)
--- NOTE | 2021-02-14 08:05 | CT Scan Report ---
CT head/brain wo con CLINICAL HISTORY: dizzy Technique: Contiguous axial CT images of the head were acquired from the base of the skull to the michael devin without intravenous contrast administration. Images were viewed in brain, subdural and bone [facility]. Automated dose lowering techniques and/or adjustment according to patient size were utilized for this exam. Comparison: Comparison is made to CT head 09/19/2019 Findings: Areas of decreased attenuation are present in the periventricular and subcortical white matter bilate rally consistent with small vessel ischemic disease. Generalized cerebral atrophy with commensurate e nlargement of the ventricles, sulci, and cisterns is also present. There is no acute intracranial hem orrhage or evidence of acute territorial infarction. No shift of the midline structures, mass effect, or extra-axial abnormalities are shown. Atherosclerotic calcifications are present in the intracran ial segments of the internal carotid arteries. Imaged portions of the paranasal sinuses and mastoid air cells are clear. The orbits appear normal. There are no acute fractures of the calvaria or scalp swelling. Impression: No acute intracranial hemorrhage, no evidence of acute territorial infarction or other acute intracra nial disease process. ACT 112: Negative or not required by law. Electronically signed by: Andrey Carrasco M.D. 02/14/2021 8:04 AM
[2021-02-14 08:15] LABS: Alanine Aminotransferase 25 U/L (12-78); Albumin Globulin Ratio 0.7 (0.9-2); Albumin Level 3.2 gm/dl (3.4-5.0); Alkaline Phosphatase 101 U/L (45-117); BUN Creatinine Ratio 13.1 (10-20); Bilirubin,Total 0.6 mg/dl (0.2-1); Blood Urea Nitrogen 13 mg/dl (7-18); Calcium 8.9 mg/dl (8.5-10.1); Carbon Dioxide 24 mmol/L (21-32); Chloride 103 mmol/L (98-107); Creatinine Clr Calc Pharmacy 60.5 ml/min; Est GFR (African American) 63.8 ml/min; Est GFR (Non-African American) 55.1 ml/min; Globulin 4.8 gm/dl (2.5-4.0); Glucose 126 mg/dl (70-99); Lipase 70 U/L (73-393); Sodium 133 mmol/L (136-145); Troponin I < 0.015 ng/ml (0-0.045)
[2021-02-14] MEDS ORDERED: ONDANSETRON INJ 2 MG/ML 2 ML VIAL IV STA (08:25)
[2021-02-14] MEDS ORDERED: NITROGLYCERIN 60 SPRAYS/4.9 GM SPRAY SL STA (09:01)
[2021-02-14 09:19] LABS: Potassium 3.5 mmol/L (3.5-5.1)
--- NOTE | 2021-02-14 10:44 | History & Physical Report ---
Date of Service February 14, 2021 Assessment & Plan (1) Vertigo: Plan: Ximena is a 75-year-old female with past medical history of CAD, A. fib, rectocele, pulmonary nodules, systolic murmur, vaginal prolapse, subdural hematoma, sleep apnea with excessive daytime sleepiness, NSTEMI, celiac disease, and ocular migraine who presented to the emergency department for dizziness. She reports she has had vertigo several years ago. Her current episode improves with keeping her head still, she has vomited. Dizziness suspect BPPV Given meclizine in ER. Continue - PT consulted, consider Emily. - Cardiac eval as below - No cold like sx No leukocytosis Hemoglobin 11.1 Sodium 133 Potassium 3.5 No transaminitis Troponin negative Covid negative CXR: No acute pulmonary disease CThead: No acute intracranial hemorrhage, no evidence of acute territorial infarct or other acute intracranial disease process. - Meclizine 25 q8H PRN (2) Chest pressure: Plan: Chest Pain - Improved w/ nitro, some residual. - Trial nitro paste, wipe/hold for hypotension and headache EKG: A. fib, QT 493 Lipase 70 -Initial troponin negative, troponin trended -Follow on telemetry - Cardiology consulted, see afib below as well - TTE pending (3) Afib: Plan: Atrial fibrillation On home amiodarone 200 mg p.o. twice daily On apixaban 5 mg p.o. twice daily Rate controlled with metoprolol 12.5 mg p.o. every morning - Pt pending outpt cardioversion and JOHANA as outpt. Cards consulted. TTE ordered as above (4) CAD (coronary artery disease): Plan: CAD Aspirin 81 mg p.o. every morning Metoprolol as noted Continue rosuvastatin 40 mg p.o. daily (5) CD (celiac disease): Plan: Celiac diet (6) Sleep apnea: Plan: Continue CPAP nightly Plan: DVT prophylaxis: Anticoagulated as above Diet: Celiac, heart healthy Disposition: Medical surgical with telemetry, cardiac observation CODE STATUS: Full Code. Discussed with pt. Katya Frazieraver would be surrogate decision maker in an emergency. [facility] [[email or web address]] # [phone] History of Present Illness Chief Complaint: Dizziness, chest pressure Primary Care Provider: Sravan Figueroa MD Ximena is a 75-year-old female with past medical history of CAD, A. fib, rectocele, pulmonary nodules, systolic murmur, vaginal prolapse, subdural hematoma, sleep apnea with excessive daytime sleepiness, NSTEMI, celiac disease, and ocular migraine who presented to the emergency department for dizziness. She reports she has had vertigo several years ago. Her current episode improves with keeping her head still, she has vomited. Has been recommended for further evaluation due to history of cardiac disease and midsternal heaviness with symptoms. No shortness of breath or jaw pain. "Fine when I woke up this morning. Drank a cup of coffee and ate 4 cookies and about probably a half hour later everything started to just going around" Similar to past vertigo. Room was spinning around her. Was going to walk over to TV. ~5-6am this morning Last episode many years ago, lasted a few months No recent illnesses In afib for 1 month Increased leg swelling x 3 weeks. 60mg of lasix for a few days as outpt, saw Dr. Delacruz in outpt and was increased to 80mg per day for the last 5 days and was pending a cardioversion.No hx of CHF. Last echo was with a LA July 2020. Afib first began end of Dec (2 months ago). Vague mild chest '5/10' pressure, 8-10/10 at onset -N/V/D at tiem of assessment. +nausea at episode +1 yellow emesis while dizzy. +burping +constipation. Last BM 2 days ago. Took fiber + stool softener. -diaphoresis +sinus infection 2 weeks ago Medical History: Reviewed Medications: Reviewed. NO meds taken this AM Surgical History: Reviewed Allergies: Reviewed Social History: No tobacco product use, 2 years remote tobacco history quit 1972. No alcohol use. Denies recreational drug use. Lives with . Got the [employer] vaccine x2. Code Status: Full Code. Discussed with pt. Katya Orellana would be surrogate decision maker in an emergency. [facility] # [phone] Allergies Allergy/AdvReac Type Severity Reaction Status Date / Time gluten Allergy Intermediate Celiac Verified 02/14/21 09:12 disease latex Allergy Mild Rash Verified 02/14/21 09:12 amoxicillin AdvReac Intermediate Yeast Verified 02/14/21 09:12 infection cefdinir AdvReac Intermediate nausea Verified 02/14/21 09:12 Cephalosporins AdvReac Intermediate Yeast Verified 02/14/21 09:12 infection clavulanic acid AdvReac Intermediate Yeast Verified 02/14/21 09:12 infection prednisone AdvReac Intermediate Anxiety Verified 02/14/21 09:12 Home Medications Medication Instructions Recorded Confirmed Type docusate sodium 100 mg capsule 300 mg PO QAM 04/15/18 02/14/21 History vitamin B complex 1 tab PO QAM 04/15/18 02/14/21 History calcium carbonate 600 mg calcium 1,200 mg PO QAM 06/08/19 02/14/21 History (1,500 mg) tablet (Calcium) cholecalciferol (vitamin D3) 25 1,000 unit PO QAM 06/08/19 02/14/21 History mcg (1,000 unit) capsule (Vitamin D3) acetaminophen 325 mg tablet 650 mg PO Q4H PRN #30 tab 09/22/19 02/14/21 Rx CPAP Machine See Rx Instructions .ROUTE 05/20/20 02/14/21 Rx .COMPLEX #1 ea coffee extract 50 mg-phosphatidyl 1 tab PO QAM tab 06/04/20 02/14/21 History serine 50 mg chewable tablet (Neuriva Original) aspirin 81 mg tablet,delayed 81 mg PO QAM #30 tab 07/29/20 02/14/21 Rx release nitroglycerin 0.4 mg sublingual See Rx Instructions .ROUTE 07/29/20 02/14/21 Rx tablet (Nitrostat) .COMPLEX PRN #25 tab apixaban 5 mg tablet (Eliquis) 5 mg PO BID #180 tab 10/08/20 02/14/21 Rx memantine 10 mg tablet 10 mg PO BID #180 tab 12/09/20 02/14/21 Rx fluticasone propionate 50 1 spray INTRANASAL DAILY #16 g 02/01/21 02/14/21 Rx mcg/actuation nasal spray,suspension (Flonase Allergy Relief) metoprolol succinate 25 mg 12.5 mg PO QAM 02/01/21 02/14/21 History tablet,extended release 24 hr amiodarone 200 mg tablet 200 mg PO BID #60 tab 02/05/21 02/14/21 Rx estradiol 0.075 mg/24 hr weekly 1 patch TOPICAL YARBROUGH #4 ea 02/10/21 02/14/21 Rx transdermal patch potassium chloride 20 mEq 20 meq PO DAILY #30 tab 02/10/21 02/14/21 Rx tablet,extended release rosuvastatin 40 mg tablet (Crestor) 40 mg PO DAILY #90 tab 02/10/21 02/14/21 Rx furosemide 40 mg tablet (Lasix) 40 mg PO BID 02/14/21 02/14/21 History Past Med/Surg History Medical History Atrial fibrillation Follows w/ Dr. Delacruz on Eliquis CAD (coronary artery disease) Medically managed by cardiology CD (celiac disease) "Does not" follow gluten-free diet Degenerative disc disease Diastolic CHF Diverticulitis 2013 History of paroxysmal supraventricular tachycardia Low back pain with sciatica Non-ST elevation LA (NSTEMI) 07/27/20 Ocular migraine Osteoarthritis Sleep apnea CPAP Surgical History History of arthroscopy of right shoulder RCR History of cardiac cath 2015, 07/28/20 ([place]) > no stents History of cardioversion x2, most recent 04/2019 History of carpal tunnel release R/L History of cataract surgery History of cholecystectomy History of colonoscopy History of esophagogastroduodenoscopy (EGD) History of foot surgery R/L feet "to straighten toes" History of fracture of left shoulder Plate + screws History of hysterectomy JOANNA + BSO History of incision and drainage Right foot History of tonsillectomy History of total knee replacement Left x2, right x1 Status post placement of implantable loop recorder Implanted 12/2019 Family History Mother Family hx of colon cancer Colorectal cancer Brother Prostate cancer Family history of diabetes mellitus Father Dissecting aortic aneurysm Myocardial infarction Grandmother (Maternal) Stroke Other No family history of adverse response to anesthesia Denies family history of Ovarian cancer Breast cancer Social History Smoking Status: Former smoker Tobacco Type: Cigarettes Age Started Using Tobacco: 19; Age Quit Using Tobacco: 27; packs per day: 0.25; Years Smoked: 8; Second Hand Exposure: No; Hx Alcohol Use: No Hx Substance Use: No Preferred Language: Kosovan Communication Ability: Effective Overhead Garage Door Hanger Required: No Beliefs That Will Affect Care: None marital status: Current Living Situation: Spouse Current Living Situation Comment: Lives with 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 NAD. Cooperative. HEENT: Atraumatic, normocephalic. Pulm: CTAB A&P. -wheezes, -rales, -rhonchi. Symmetrical chest rise. No increase work of breathing. No respiratory distress. Cardiac: Irregularly irregular, -mrg. Radial pulses intact and symmetrical. Abdominal: Nontender, nondistended, soft. BS present. CRANIAL NERVES: II: Pupils equal and reactive, no relative afferent pupillary defect, no VF cuts III, IV, : EOM intact, no gaze preference or deviation. No dizziness with fixed neck tracking eye movements, Alonso-Hallpike unable to be assessed due to rapid limiting nausea with head turn. V: normal sensation in V1, V2, and V3 segments bilaterally VII: no asymmetry, no nasolabial fold flattening VIII: normal hearing to speech IX, X: normal palatal elevation, no uvular deviation XI: 5/5 head turn and 5/5 shoulder shrug bilaterally XII: midline tongue protrusion MOTOR: RUE: 5/5 proposal manager strength, finger flexion/extension, interosseus LUE: 5/5 proposal manager strength, finger flexion/extension, interosseus RLE: 5/5 to hip flexion, ankle dorsiflexion/plantarflexion LLE: 5/5 to hip flexion, ankle dorsiflexion/plantarflexion SENSORY: Normal to touch in upper and lower extremities without deficit or asymmetry Extremity: Bilateral lower extremity/ankle edema. Left knee tender to palpation at baseline, patient reports history of replacement with residual tenderness at baseline. Results & Data Results & Data ([facility]) Vital Signs (Past 12 Hours) Vital Signs Temp Pulse Resp BP Pulse Ox 02/14/21 10:00 88 24 133/73 100 02/14/21 09:50 80 17 100 02/14/21 09:40 80 16 93 02/14/21 09:30 73 02/14/21 09:20 86 90 02/14/21 09:10 75 16 97 02/14/21 09:00 80 15 02/14/21 08:50 67 26 H 97 02/14/21 08:40 81 19 100 02/14/21 08:30 72 23 02/14/21 08:20 75 18 100 02/14/21 08:14 76 22 91 02/14/21 07:37 97 02/14/21 07:20 36.6 C 77 18 123/66 99 PG Care Time/CCT Total # of Minutes Spent Total Time Spent with Patient: Total time spent is greater than 50% in coordination of care (as documented) at patient's floor/unit and/or counseling patient: Coding Level of Care Code INT OBSERVATION CARE 50M LVL 2 Diagnoses Vertigo R42 Afib I48.91 CAD (coronary artery disease) I25.10 CD (celiac disease) K90.0 Sleep apnea G47.30 Chest pressure R07.89
[2021-02-14] MEDS ORDERED: MECLIZINE HCL 25 MG TAB PO PRN (11:16)
[2021-02-14] MEDS: NITROGLYCERIN 2% OINTMENT 30GM TUBE EXT SCH ×3 (12:10→23:34)
[2021-02-14] MEDS ORDERED: NITROGLYCERIN SL 0.4 MG/TAB TAB SL PRN (14:27)
[2021-02-14] MEDS ORDERED: METOPROLOL SUCC 25MG EXT REL TAB PO SCH (15:00)
[2021-02-14] MEDS: FAMOTIDINE 20 MG in SYRINGE 3 ML IV SCH ×2 (15:14→22:56)
[2021-02-14] MEDS: APIXABAN 5 MG TABLET PO SCH ×2 (16:27→22:56)
[2021-02-14] MEDS: ASPIRIN 81 MG ECTAB PO SCH (16:28)
[2021-02-14] MEDS: FUROSEMIDE 40 MG TAB PO SCH ×2 (16:28→20:49)
[2021-02-14] MEDS: MEMANTINE HCL 10 MG TAB PO SCH ×2 (16:28→22:56)
[2021-02-14] MEDS: POTASSIUM CHLORIDE CRTAB 20 MEQ TABCR PO SCH (16:29)
[2021-02-14] MEDS: ROSUVASTATIN CALCIUM 20 MG TAB PO SCH (16:29)
--- NOTE | 2021-02-14 16:43 | Cardiology Consultation ---
Date of Consultation February 14, 2021 Assessment & Plan (1) Persistent atrial fibrillation: (2) CAD (coronary artery disease): (3) Chronic diastolic CHF (congestive heart failure): (4) Atypical chest pain: ASSESSMENT/PLAN: 1. Atrial fibrillation s/p DC CV x 2: Has a history of paroxysmal/persistent atrial fibrillation. Remains in atrial fibrillation while on amiodarone. Is scheduled for transesophageal echo and cardioversion later this week. She would like to undergo this procedure while hospitalized as she is symptomatic while in atrial fibrillation. Hold beta-silvano for now as she has shown to be bradycardic while in sinus rhythm on rate-controlling medications. Continue Eliquis without interruption. Risks and benefits of transesophageal echo and cardioversion were discussed with her in detail. Had been on flecainide in the past which was discontinued following ME. NPO after midnight. 2. Chronic diastolic CHF: There is no acute worsening of her CHF currently but as an outpatient, it has been noted that her CHF has worsened while in atrial fibrillation. There is improvement today compared to her exam last week while on increased diuretic as an outpatient. Continue 80 mg of Lasix for now, as she has been on 40 mg more chronically. Atrial fibrillation likely worsening her CHF. Low-sodium diet. Continue daily weights. 3. CAD: Found to have small vessel disease in the setting of NSTEMI on 07/27/2020. No angina recently. Continue medical therapy. Continue high- intensity statin therapy. 4. Chest pain: She has had different chest pains in the past. She denies chest pain at this time. 5. Bradycardia: Has had mild bradycardia in the past while in sinus rhythm. 6. Dyslipidemia: Continue high-intensity statin therapy. 7. Mitral regurgitation: Non severe. Asymptomatic. Can monitor every 3-5 years if clinically applicable. 8. Atrial tachycardia: Asymptomatic. Now on amiodarone given AFib. 9. Syncope: Etiology uncertain. Loop recorder in place. Follows with electrophysiology. 10. Loop recorder: Continue to follow with electrophysiology for interrogation. 11. Disposition: Hope to perform transesophageal echo and cardioversion tomorrow. Depending on timing, will likely request assistance from covering ship's surveyor as I will be in the office. Risks and benefits of the procedures were discussed with her in detail. She requested that I speak with her daughter, Katya Orellana, and thus she was contacted via telephone to update her on the plan of care. Highly complex medical issues for which JOHANA and cardioversion are being arranged. Thank you for allowing me to participate in the care of your patient. Please call for any other questions or concerns. Sincerely, Charlie Delacruz M.D. History of Present Illness Reason for Consultation: afib Requesting Physician: Jesus Manuel Loja MD Attending Physician: Jesus Manuel Loja MD History of Present Illness Mrs. Maxwell is a pleasant 75-year-old female with a history significant for diastolic CHF, atrial fibrillation (Diagnosed 04/15/2018) status post cardioversion, paroxysmal SVT/atrial tachycardia, CAD, and dyslipidemia. She has sleep apnea. On 07/27/2020, she had an acute visit in the cardiology office with chest discomfort and was noted to have minor ST elevation in lateral leads. Initial troponin was 1.91 and peaked at 2.6. Cardiac catheterization demonstrated small branch vessel disease involving small OM to, not amenable to intervention. Flecainide was discontinued given documented CAD. Amiodarone was initiated in January of 2021 for recurrent atrial fibrillation. She has had the following studies: 1. Dobutamine stress echo 05/06/11: Negative for ischemia at 89% MPHR. Positive ECG. No chest pain. Normal LV size and systolic function. Mild MR. 2. Dobutamine stress echo 07/03/12: Negative at 93% MPHR. EF 60%. Mild MR. 3. CTA of aorta 12/24/12: No aneurysm reported. 4. Holter 01/06/2014: Sinus rhythm with average heart rate 74 bpm. Blunted diurnal heart rate variation. No ectopy. No arrhythmia. Shoulder pain during lifting occurred during normal sinus rhythm. 5. Echo 09/14/2015: Normal LV size, wall motion, systolic function. EF 60%. No significant valvular abnormalities. 6. Dobutamine stress echo 02/23/2016: Abnormal at 100% MPHR suggesting distal LAD ischemia. Apical wall segments appear hypokinetic at peak stress. PVCs. No arrhythmia. Chest pain reported. 7. Cardiac catheterization 03/15/2016: No significant CAD. LVEDP 15mmHg. No aortic stenosis. Normal cardiac output. Normal PCWP. PA pressure 37/11 with mean of 20. 8. Event monitor 04/05/2016 to 05/04/2016: Predominantly sinus rhythm. Paroxysmal SVT and atrial tachycardia. SVT up to 17 beats. No symptoms reported. 9. Echo 10/10/2017: Normal LV size, wall motion, systolic function. EF 60- 65%. No LVH. No significant diastolic dysfunction. Mild to moderate MR. RVSP 31. 10. DC CV 06/21/2018: Elective. One hundred fifty joules converted AFib to sinus rhythm. 11. DC Cardioversion 04/29/2019 [facility]: Elective. AFib converted to sinus rhythm. 12. PFT's 10/02/2019: Nonspecific parallel decrease in FEV1 and FVC. DLCO mildly reduced. 13. Echo 10/04/2019: Normal LV size, wall motion, systolic function. EF 60-65% . Mild MR. RVSP 38. Sinus bradycardia in the 50s. 14. Event monitor 09/27/2019 to 10/10/2019: Predominantly sinus rhythm with average heart rate 67 beats per minute. One episode of nonsustained SVT (14 beats) at 148 beats per minute. PACs. To on describe symptomatic episodes occurred during sinus rhythm. 15. Loop recorder 12/05/2019: [employer] loop recorder implanted by Dr. Powers. Implanted for syncope. 16. Echo 07/28/2020: Normal LV size, wall motion and systolic function. EF 60- 65%. Mild LVH. Mild MR. 17. Cardiac cath 07/28/2020: No significant coronary artery disease of major epicardial vessels. Small branch vessel disease with severe disease in small OM2 prior to mid segment occlusion (vessel < 2 mm).LVEDP 14. MR 1+. She was admitted today with vertigo. She had a little bit of vertigo yesterday but then today after waking up at 5:00 a.m. feeling well, she developed acute severe vertigo. She describes the sensation as spinning and constant. She was given meclizine and has noted significant improvement in her symptoms. She denies vertigo currently. She denies angina, shortness of breath, syncope, near-syncope, or bleeding. She has had lower extremity edema and has not noted a significant improvement while taking Lasix 80 mg daily. Her weight has been stable at home. She was seen in the office last week and had lost 4 lb while on 80 mg of Lasix on the office scale and had reported improved dyspnea. She denies melena, hematochezia, or hematuria. She would like to undergo transesophageal echo and cardioversion during this hospital stay if possible. She is scheduled to have this done later this week. Review of systems:As above. Family history:No known premature CAD. Her father at the age of 63 secondary to an aortic dissection. Daughter had a stroke. Social history:Denies tobacco, alcohol, drug abuse. She is and has 3 children. She lives at home with her . 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 She worked at a [employer]. She was unaccompanied in her hospital room. Allergies Allergy/AdvReac Type Severity Reaction Status Date / Time gluten Allergy Intermediate Celiac Verified 02/14/21 09:12 disease latex Allergy Mild Rash Verified 02/14/21 09:12 amoxicillin AdvReac Intermediate Yeast Verified 02/14/21 09:12 infection cefdinir AdvReac Intermediate nausea Verified 02/14/21 09:12 Cephalosporins AdvReac Intermediate Yeast Verified 02/14/21 09:12 infection clavulanic acid AdvReac Intermediate Yeast Verified 02/14/21 09:12 infection prednisone AdvReac Intermediate Anxiety Verified 02/14/21 09:12 Home Medications Medication Instructions Recorded Confirmed Type docusate sodium 100 mg capsule 300 mg PO QAM 04/15/18 02/14/21 History vitamin B complex 1 tab PO QAM 04/15/18 02/14/21 History calcium carbonate 600 mg calcium 1,200 mg PO QAM 06/08/19 02/14/21 History (1,500 mg) tablet (Calcium) cholecalciferol (vitamin D3) 25 1,000 unit PO QAM 06/08/19 02/14/21 History mcg (1,000 unit) capsule (Vitamin D3) acetaminophen 325 mg tablet 650 mg PO Q4H PRN #30 tab 09/22/19 02/14/21 Rx CPAP Machine See Rx Instructions .ROUTE 05/20/20 02/14/21 Rx .COMPLEX #1 ea coffee extract 50 mg-phosphatidyl 1 tab PO QAM tab 06/04/20 02/14/21 History serine 50 mg chewable tablet (Neuriva Original) aspirin 81 mg tablet,delayed 81 mg PO QAM #30 tab 07/29/20 02/14/21 Rx release nitroglycerin 0.4 mg sublingual See Rx Instructions .ROUTE 07/29/20 02/14/21 Rx tablet (Nitrostat) .COMPLEX PRN #25 tab apixaban 5 mg tablet (Eliquis) 5 mg PO BID #180 tab 10/08/20 02/14/21 Rx memantine 10 mg tablet 10 mg PO BID #180 tab 12/09/20 02/14/21 Rx fluticasone propionate 50 1 spray INTRANASAL DAILY #16 g 02/01/21 02/14/21 Rx mcg/actuation nasal spray,suspension (Flonase Allergy Relief) metoprolol succinate 25 mg 12.5 mg PO QAM 02/01/21 02/14/21 History tablet,extended release 24 hr amiodarone 200 mg tablet 200 mg PO BID #60 tab 02/05/21 02/14/21 Rx estradiol 0.075 mg/24 hr weekly 1 patch TOPICAL YARBROUGH #4 ea 02/10/21 02/14/21 Rx transdermal patch potassium chloride 20 mEq 20 meq PO DAILY #30 tab 02/10/21 02/14/21 Rx tablet,extended release rosuvastatin 40 mg tablet (Crestor) 40 mg PO DAILY #90 tab 02/10/21 02/14/21 Rx furosemide 40 mg tablet (Lasix) 40 mg PO BID 02/14/21 02/14/21 History Patient History Medical History Atrial fibrillation Follows w/ Dr. Delacruz, on Eliquis CAD (coronary artery disease) Medically managed by cardiology CD (celiac disease) "Does not" follow gluten-free diet Degenerative disc disease Diastolic CHF Diverticulitis 2013 History of paroxysmal supraventricular tachycardia Low back pain with sciatica Non-ST elevation ME (NSTEMI) 07/27/20 Ocular migraine Osteoarthritis Sleep apnea CPAP Surgical History History of arthroscopy of right shoulder RCR History of cardiac cath 2015, 07/28/20 ([place]) > no stents History of cardioversion x2, most recent 04/2019 History of carpal tunnel release R/L History of cataract surgery History of cholecystectomy History of colonoscopy History of esophagogastroduodenoscopy (EGD) History of foot surgery R/L feet "to straighten toes" History of fracture of left shoulder Plate + screws History of hysterectomy JOANNA + BSO History of incision and drainage Right foot History of tonsillectomy History of total knee replacement Left x2, right x1 Status post placement of implantable loop recorder Implanted 12/2019 Family History Mother Family hx of colon cancer Colorectal cancer Brother Prostate cancer Family history of diabetes mellitus Father Dissecting aortic aneurysm Myocardial infarction Grandmother (Maternal) Stroke Other No family history of adverse response to anesthesia Denies family history of Ovarian cancer Breast cancer Social History Smoking Status: Former smoker Tobacco Type: Cigarettes Age Started Using Tobacco: 19; Age Quit Using Tobacco: 27; packs per day: 0.25; Years Smoked: 8; Second Hand Exposure: No; Hx Alcohol Use: No Hx Substance Use: No Preferred Language: Chinese Communication Ability: Effective Pressure Testing Technician Required: No Beliefs That Will Affect Care: None marital status: Current Living Situation: Spouse Current Living Situation Comment: Lives with current occupational status: retired other: [employer]; worked at [employer]; 3 children Feels Safe at Home: Yes Safety Concerns: Feels Safe At This Time Childhood Exposure to Second-Hand Smoke: No Dental Care, Regularly: Yes Seatbelt Use: always Sunscreen Use: Yes Assistive Devices Comment: All items with daughter Physical Exam Physical Exam: Gen.: No acute distress. Alert and oriented. HEENT: Anicteric sclera. Neck: No appreciable JVD. Normal carotid upstrokes bilaterally. No bruit. Cardiac: PMI was nondisplaced. No ventricular heave. Irregularly irregular. No rmal S1-S2. No murmur. No rubs or gallops. Pulmonary: Clear to auscultation bilaterally without wheezes, rales, or rhonchi. Abdomen: Soft, nontender, nondistended, with normoactive bowel sounds. No bruits noted. Extremities: 2+ radial pulses bilaterally. 2+ posterior tibialis pulses bilaterally. 1+ bilateral lower extremity edema. Varicose veins. No cyanosis. Psychiatric: Affect appears appropriate. Results & Data ([facility]) Vital Signs (Past 12 Hours) Vital Signs Temp Pulse Pulse Resp BP BP Pulse Ox 02/14/21 15:01 36.6 C 97 H 18 123/75 98 02/14/21 13:24 97 H 18 119/66 97 02/14/21 10:00 88 24 133/73 100 02/14/21 09:50 80 17 100 02/14/21 09:40 80 16 93 02/14/21 09:30 73 02/14/21 09:20 86 90 02/14/21 09:10 75 16 97 02/14/21 09:00 80 15 02/14/21 08:50 67 26 H 97 02/14/21 08:40 81 19 100 02/14/21 08:30 72 23 02/14/21 08:20 75 18 100 02/14/21 08:14 76 22 91 02/14/21 07:37 97 02/14/21 07:20 36.6 C 77 18 123/66 99 Laboratory Results Laboratory Results - last 24 hr 02/14/21 02/14/21 02/14/21 07:36 07:36 08:45 WBC 10.10 RBC 3.92 L Hgb 11.1 L Hct 33.9 L MCV 86.5 MCH 28.3 MCHC 32.7 RDW Std Deviation 44.5 RDW Coeff of Malinda 14.3 Plt Count 362 MPV 10.1 Immature Gran % (Auto) 0.2 Neut % (Auto) 66.6 Lymph % (Auto) 25.4 [place] % (Auto) 6.7 Eos % (Auto) 0.7 Baso % (Auto) 0.4 Neut # (Auto) 6.72 H Lymph # (Auto) 2.57 [place] # (Auto) 0.68 H Eos # (Auto) 0.07 Baso # (Auto) 0.04 Immature Gran # (Auto) 0.02 Sodium 133 L Potassium Chloride 103 Carbon Dioxide 24 Anion Gap 7.0 BUN 13 Creatinine 1.00 Est Cr Clr Drug Dosing 60.5 Est GFR ( Amer) 63.8 Est GFR (Non-Af Amer) 55.1 BUN/Creatinine Ratio 13.1 Glucose 126 H Calcium 8.9 Total Bilirubin 0.6 AST ALT 25 Alkaline Phosphatase 101 Troponin I < 0.015 Total Protein 8.0 Albumin 3.2 L Globulin 4.8 H Albumin/Globulin Ratio 0.7 L Lipase 70 L COVID-19 Eval Order Covid19 at [facility] SARS-CoV-2 (PCR) 02/14/21 02/14/21 02/14/21 08:45 08:57 14:51 WBC RBC Hgb Hct MCV MCH MCHC RDW Std Deviation RDW Coeff of Malinda Plt Count MPV Immature Gran % (Auto) Neut % (Auto) Lymph % (Auto) [place] % (Auto) Eos % (Auto) Baso % (Auto) Neut # (Auto) Lymph # (Auto) [place] # (Auto) Eos # (Auto) Baso # (Auto) Immature Gran # (Auto) Sodium Potassium 3.5 Chloride Carbon Dioxide Anion Gap BUN Creatinine Est Cr Clr Drug Dosing Est GFR ( Amer) Est GFR (Non-Af Amer) BUN/Creatinine Ratio Glucose Calcium Total Bilirubin AST 13 L ALT Alkaline Phosphatase Troponin I < 0.015 Total Protein Albumin Globulin Albumin/Globulin Ratio Lipase COVID-19 Eval Order SARS-CoV-2 (PCR) NEGATIVE Diagnostic Findings ECG personally reviewed 02/14/2021: AFib 84 beats per minute. Prolonged QT. Chest x-ray 02/14/2021: No acute cardiopulmonary disease per Radiology. CT head 02/14/2021: No acute intracranial hemorrhage or stroke. Medications Administered Current Inpatient Medications Acetaminophen (Acetaminophen 325 Mg Tab) 650 mg PO Q4H PRN PRN Reason: Pain or Fever Stop: 03/16/21 14:26 Amiodarone HCl (Amiodarone 200 Mg Tab) 200 mg PO BID [facility] Stop: 03/16/21 20:59 Apixaban (Apixaban 5 Mg Tablet) 5 mg PO BID [facility] Stop: 03/16/21 14:59 Last Admin: 02/14/21 16:27 Dose: 5 mg Documented by: Aspirin (Aspirin 81 Mg Ectab) 81 mg PO QAM [facility] Stop: 03/16/21 14:59 Last Admin: 02/14/21 16:28 Dose: 81 mg Documented by: Docusate Sodium (Docusate Sodium 100 Mg Cap) 300 mg PO QAM [facility] Stop: 03/17/21 08:59 Furosemide (Furosemide 40 Mg Tab) 40 mg PO BID17 [facility] Stop: 03/16/21 14:59 Last Admin: 02/14/21 16:28 Dose: 40 mg Documented by: Famotidine 20 mg/ Syringe 5 mls @ 2.5 mls/min IV BID [facility] Stop: 03/16/21 14:59 Last Admin: 02/14/21 15:14 Dose: 2.5 mls/min Documented by: Meclizine HCl (Meclizine Hcl 25 Mg Tab) 25 mg PO Q8H PRN PRN Reason: dizziness Stop: 03/16/21 11:15 Memantine (Memantine Hcl 10 Mg Tab) 10 mg PO BID [facility] Stop: 03/16/21 14:59 Last Admin: 02/14/21 16:28 Dose: 10 mg Documented by: Metoprolol Succinate (Metoprolol Succ 25mg Ext Rel Tab) 12.5 mg PO QAM [facility] Stop: 03/16/21 14:59 Last Admin: 02/14/21 16:28 Dose: 12.5 mg Documented by: Miscellaneous (Estradiol: Order Awaiting Action) 1 ea N/A QS [facility] Stop: 03/16/21 15:59 Nitroglycerin (Nitroglycerin 2% Ointment 30gm Tube) 0.5 inch EXT Q6 [facility] Stop: 03/16/21 11:14 Last Admin: 02/14/21 12:10 Dose: 0.5 inch Documented by: Nitroglycerin (Nitroglycerin Sl 0.4 Mg/Tab Tab) 0.4 mg SL UD PRN PRN Reason: Chest Pain Stop: 03/16/21 14:26 Potassium Chloride (Potassium Chloride Crtab 20 Meq Tabcr) 20 meq PO DAILY [facility] Stop: 03/16/21 14:59 Last Admin: 02/14/21 16:29 Dose: 20 meq Documented by: Rosuvastatin Calcium (Rosuvastatin Calcium 20 Mg Tab) 40 mg PO DAILY [facility] Stop: 03/16/21 14:59 Last Admin: 02/14/21 16:29 Dose: 40 mg Documented by: PG Care Time/CCT Total # of Minutes Spent Total Time Spent with Patient: Total time spent is greater than 50% in coordination of care (as documented) at patient's floor/unit and/or counseling patient: Coding Level of Care Code 31165 Office/Outpt Visit, Est Diagnoses Persistent atrial fibrillation I48.19 CAD (coronary artery disease) I25.10 Chronic diastolic CHF (congestive heart failure) I50.32 Atypical chest pain R07.89
[2021-02-14] MEDS: ACETAMINOPHEN 325 MG TAB PO PRN (16:57)
[2021-02-14] MEDS: AMIODARONE 200 MG TAB PO SCH (20:49)
[2021-02-15] MEDS: ACETAMINOPHEN 325 MG TAB PO PRN ×2 (05:36→12:09)
[2021-02-15] MEDS: NITROGLYCERIN 2% OINTMENT 30GM TUBE EXT SCH ×2 (05:36→12:09)
--- NOTE | 2021-02-15 05:38 | Electrocardiogram Report ---
Test Reason : Blood Pressure : / mmHG Vent. Rate : 084 BPM Atrial Rate : 340 BPM P-R Int : 000 ms QRS Dur : 086 ms QT Int : 418 ms P-R-T Axes : 000 053 045 degrees QTc Int : 493 ms Atrial fibrillation Low voltage QRS Prolonged QT Abnormal ECG When compared with ECG of 25-JAN-2021 09:25, Nonspecific T wave abnormality now evident in Anterior leads Confirmed by Santino Delacruz ([id number]) on 02/15/2021 5:38:01 AM Referred By: REFERRED SELF Confirmed By:Santino Delacruz
[2021-02-15] MEDS ORDERED: LIDOCAINE 2% 2 ML VIAL/AMP(20MG/ML) INFIL ONE (07:07)
[2021-02-15] MEDS ORDERED: PROPOFOL IV EMULSION 10 MG/ML 20 ML VIAL IV ONE (07:07)
--- NOTE | 2021-02-15 07:13 | Anesthesiology Consultation ---
Date of Service February 15, 2021 Assessment & Plan (1) Encounter for pre-operative examination: Chart Review Chart Review: Acceptable Risk for Surgery History Height/Weight Height: 5 ft 9 in Weight: 91.1 kg Allergies Allergy/AdvReac Type Severity Reaction Status Date / Time gluten Allergy Intermediate Celiac Verified 02/14/21 09:12 disease latex Allergy Mild Rash Verified 02/14/21 09:12 amoxicillin AdvReac Intermediate Yeast Verified 02/14/21 09:12 infection cefdinir AdvReac Intermediate nausea Verified 02/14/21 09:12 Cephalosporins AdvReac Intermediate Yeast Verified 02/14/21 09:12 infection clavulanic acid AdvReac Intermediate Yeast Verified 02/14/21 09:12 infection prednisone AdvReac Intermediate Anxiety Verified 02/14/21 09:12 Medications Home Medications Medication Instructions Recorded Confirmed Last Taken docusate sodium 100 mg capsule 300 mg PO QAM 04/15/18 02/14/21 01/25/21 vitamin B complex 1 tab PO QAM 04/15/18 02/14/21 01/25/21 calcium carbonate 600 mg calcium 1,200 mg PO QAM 06/08/19 02/14/21 01/25/21 (1,500 mg) tablet (Calcium) cholecalciferol (vitamin D3) 25 1,000 unit PO QAM 06/08/19 02/14/21 01/25/21 mcg (1,000 unit) capsule (Vitamin D3) acetaminophen 325 mg tablet 650 mg PO Q4H PRN #30 tab 09/22/19 02/14/21 Unknown CPAP Machine See Rx Instructions .ROUTE 05/20/20 02/14/21 Unknown .COMPLEX #1 ea coffee extract 50 mg-phosphatidyl 1 tab PO QAM tab 06/04/20 02/14/21 01/25/21 serine 50 mg chewable tablet (Neuriva Original) aspirin 81 mg tablet,delayed 81 mg PO QAM #30 tab 07/29/20 02/14/21 01/25/21 release nitroglycerin 0.4 mg sublingual See Rx Instructions .ROUTE 07/29/20 02/14/21 Unknown tablet (Nitrostat) .COMPLEX PRN #25 tab apixaban 5 mg tablet (Eliquis) 5 mg PO BID #180 tab 10/08/20 02/14/21 01/25/21 memantine 10 mg tablet 10 mg PO BID #180 tab 12/09/20 02/14/21 01/25/21 fluticasone propionate 50 1 spray INTRANASAL DAILY #16 g 02/01/21 02/14/21 Unknown mcg/actuation nasal spray,suspension (Flonase Allergy Relief) metoprolol succinate 25 mg 12.5 mg PO QAM 02/01/21 02/14/21 Unknown tablet,extended release 24 hr amiodarone 200 mg tablet 200 mg PO BID #60 tab 02/05/21 02/14/21 Unknown estradiol 0.075 mg/24 hr weekly 1 patch TOPICAL YARBROUGH #4 ea 02/10/21 02/14/21 Unknown transdermal patch potassium chloride 20 mEq 20 meq PO DAILY #30 tab 02/10/21 02/14/21 Unknown tablet,extended release rosuvastatin 40 mg tablet (Crestor) 40 mg PO DAILY #90 tab 02/10/21 02/14/21 Un known furosemide 40 mg tablet (Lasix) 40 mg PO BID 02/14/21 02/14/21 Unknown Active Medications Generic Name Dose Route Start Last Admin Trade Name Freq PRN Reason Stop Dose Admin Acetaminophen 650 mg 02/14/21 14:27 02/15/21 05:36 Acetaminophen 325 Mg Tab PO 03/16/21 14:26 650 mg Q4H PRN Administration Pain or Fever Amiodarone HCl 200 mg 02/14/21 21:00 02/14/21 20:49 Amiodarone 200 Mg Tab PO 03/16/21 20:59 200 mg BID MERLIN Administration Apixaban 5 mg 02/14/21 15:00 02/14/21 22:56 Apixaban 5 Mg Tablet PO 03/16/21 14:59 5 mg BID MERLIN Administration Aspirin 81 mg 02/14/21 15:00 02/14/21 16:28 Aspirin 81 Mg Ectab PO 03/16/21 14:59 81 mg QAM MERLIN Administration Furosemide 40 mg 02/14/21 15:00 02/14/21 20:49 Furosemide 40 Mg Tab PO 03/16/21 14:59 40 mg [id number] MERLIN Administration Famotidine 20 mg/ Syringe 5 mls @ 2.5 mls/min 02/14/21 15:00 02/14/21 22:56 IV 03/16/21 14:59 2.5 mls/min BID MERLIN Administration Memantine 10 mg 02/14/21 15:00 02/14/21 22:56 Memantine Hcl 10 Mg Tab PO 03/16/21 14:59 10 mg BID MERLIN Administration Metoprolol Succinate 12.5 mg 02/14/21 15:00 02/14/21 16:28 Metoprolol Succ 25mg Ext Rel Tab PO 03/16/21 14:59 12.5 mg QAM MERLIN Administration Miscellaneous 1 ea 02/14/21 16:00 02/14/21 23:36 Estradiol: Order Awaiting Action N/A 03/16/21 15:59 Not Given QS MERLIN Nitroglycerin 0.5 inch 02/14/21 11:15 02/15/21 05:36 Nitroglycerin 2% Ointment 30gm Tube EXT 03/16/21 11:14 0.5 inch Q6 MERLIN Administration Potassium Chloride 20 meq 02/14/21 15:00 02/14/21 16:29 Potassium Chloride Crtab 20 Meq Tabcr PO 03/16/21 14:59 20 meq DAILY MERLIN Administration Rosuvastatin Calcium 40 mg 02/14/21 15:00 02/14/21 16:29 Rosuvastatin Calcium 20 Mg Tab PO 03/16/21 14:59 40 mg DAILY MERLIN Administration Past Medical History Medical History Atrial fibrillation Follows w/ Dr. Delacruz, on Eliquis CAD (coronary artery disease) Medically managed by cardiology CD (celiac disease) "Does not" follow gluten-free diet Degenerative disc disease Diastolic CHF Diverticulitis 2013 History of paroxysmal supraventricular tachycardia Low back pain with sciatica Non-ST elevation MS (NSTEMI) 07/27/20 Ocular migraine Osteoarthritis Sleep apnea CPAP Exercise / Class Metabolic Activity II 4-5 Yardwork/Stairs/Walk up hill Past Family History Family History Mother Family hx of colon cancer Colorectal cancer Brother Prostate cancer Family history of diabetes mellitus Father Dissecting aortic aneurysm Myocardial infarction Grandmother (Maternal) Stroke Other No family history of adverse response to anesthesia Denies family history of Ovarian cancer Breast cancer Past Surgical History Surgical History History of arthroscopy of right shoulder RCR History of cardiac cath 2016, 07/28/20 ([place]) > no stents History of cardioversion x2, most recent 04/2019 History of carpal tunnel release R/L History of cataract surgery History of cholecystectomy History of colonoscopy History of esophagogastroduodenoscopy (EGD) History of foot surgery R/L feet "to straighten toes" History of fracture of left shoulder Plate + screws History of hysterectomy JOANNA + BSO History of incision and drainage Right foot History of tonsillectomy History of total knee replacement Left x2, right x1 Status post placement of implantable loop recorder Implanted 12/2019 Social History Smoking Status: Former smoker tobacco type: cigarettes Hx Alcohol Use: No Alcohol type: wine alcohol intake frequency: holidays/special occasions only Hx Substance Use: No substance use type: does not use Physical Exam Vital Signs Last Vital Signs Temp 36.5 C 02/15/21 05:33 Pulse 82 02/15/21 05:33 Resp 18 02/15/21 05:33 BP 125/68 02/15/21 05:33 Pulse Ox 96 02/15/21 05:33 Testing Laboratory Results 02/14/21 07:36 02/14/21 08:57 Electrocardiogram Date: 02/14/21 Findings: + AFIB @ (84) Echocardiogram Date: 07/28/20 EF: 60-65% LV Function: normal Valvular Disease: + no significant valvular disease
[2021-02-15] MEDS ORDERED: BENZOCAINE/TETRACAIN/BUTAM 50 APPLN/5 GM CAN EXT ONE (07:34)
--- NOTE | 2021-02-15 08:05 | Hospitalist Progress Note ---
Date of Service February 15, 2021 Assessment & Plan Admission and Anticipated Discharge Date Admission Date: February 14, 2021 Subjective Seen this morning. Doing well. Eating clears. Cardioversion this AM and back in NSR -- this was to be done outpatient prior. No further chest pressure, palpitations, syncope. Staff has been helping to bathroom. No further dizziness but has some lightheadedness -- will await PT eval this afternoon as patient hopeful for d/c today if things go well. Results & Data Results & Data ([facility]) Vital Signs (Past 12 Hours) Vital Signs Temp Pulse Pulse Resp BP BP Pulse Ox 02/15/21 07:37 76 16 120/91 96 02/15/21 07:00 76 02/15/21 05:33 36.5 C 82 18 125/68 96 02/14/21 23:05 36 C L 85 18 107/63 96 02/14/21 20:53 108/56 L PG Care Time/CCT Total # of Minutes Spent Total Time Spent with Patient: Total time spent is greater than 50% in coordination of care (as documented) at patient's floor/unit and/or counseling patient: Coding
--- NOTE | 2021-02-15 08:18 | Anesthesiology Progress Note ---
Date of Service February 15, 2021 Anesthesia Post Procedure Vital Signs Vital Signs: Temp Pulse Pulse Resp BP BP BP 02/15/21 08:14 61 16 100/53 L 02/15/21 08:00 58 L 16 108/51 L 02/15/21 07:37 76 16 120/91 02/15/21 07:00 76 02/15/21 05:33 36.5 C 82 18 125/68 02/14/21 23:05 36 C L 85 18 107/63 02/14/21 20:53 108/56 L 02/14/21 19:40 36.5 C 105 H 18 115/65 02/14/21 17:00 93 H 02/14/21 15:01 36.6 C 97 H 18 123/75 02/14/21 14:08 92 H 02/14/21 13:24 97 H 18 119/66 02/14/21 10:00 88 24 133/73 02/14/21 09:50 80 17 02/14/21 09:40 80 16 02/14/21 09:30 73 02/14/21 09:20 86 02/14/21 09:10 75 16 02/14/21 09:00 80 15 02/14/21 08:50 67 26 H 02/14/21 08:40 81 19 02/14/21 08:30 72 23 02/14/21 08:20 75 18 Pulse Ox 02/15/21 08:14 98 02/15/21 08:00 98 02/15/21 07:37 96 02/15/21 07:00 02/15/21 05:33 96 02/14/21 23:05 96 02/14/21 20:53 02/14/21 19:40 96 02/14/21 17:00 02/14/21 15:01 98 02/14/21 14:08 02/14/21 13:24 97 02/14/21 10:00 100 02/14/21 09:50 100 02/14/21 09:40 93 02/14/21 09:30 02/14/21 09:20 90 02/14/21 09:10 97 02/14/21 09:00 02/14/21 08:50 97 02/14/21 08:40 100 02/14/21 08:30 02/14/21 08:20 100 Transfer of Care Handoff Completed per policy Notes Mental Status: alert / awake / arousable Patient Amnestic to Procedure: Yes Nausea / Vomiting: adequately controlled Pain: adequately controlled Airway Patency, RR, SpO2: stable & adequate BP & HR: stable & adequate Hydration State: stable & adequate Anesthetic Complications: no major complications apparent
[2021-02-15] MEDS ORDERED: DOCUSATE SODIUM 100 MG CAP PO SCH (09:00)
[2021-02-15 09:53] LABS: Basophils # (auto) 0.04 K/uL (0-0.2); Basophils % (auto) 0.5 %; Eosinophils # (auto) 0.11 K/uL (0-0.5); Eosinophils % (auto) 1.5 %; Hematocrit (blood only) 32.3 % (37-47); Hemoglobin 10.4 g/dL (12.0-16.0); Lymphocytes # (auto) 2.68 K/uL (1.2-3.4); Lymphocytes % (auto) 35.6 %; Mean Corpuscular Hemoglobin 28.3 pg (25-34); Mean Corpuscular Hgb Conc 32.2 g/dL (32-36); Monocytes # (auto) 0.63 K/uL (0.11-0.59); Monocytes % (auto) 8.4 %; Neutrophils # (auto) 4.06 K/uL (1.4-6.5); Platelet Count 370 K/uL (130-400); RDW Coefficient of Variation 14.7 % (11.5-14.5); RDW Standard Deviation 47.3 fL (36.4-46.3); Red Blood Count 3.67 M/uL (4.2-5.4); White Blood Count 7.52 K/uL (4.8-10.8)
[2021-02-15 10:19] LABS: Albumin Level 2.8 gm/dl (3.4-5.0); BUN Creatinine Ratio 14.1 (10-20); Calcium 8.5 mg/dl (8.5-10.1); Creatinine Clr Calc Pharmacy 54.6 ml/min; Est GFR (African American) 58.8 ml/min; Est GFR (Non-African American) 50.7 ml/min; Potassium 3.9 mmol/L (3.5-5.1)
[2021-02-15 10:28] LABS: Albumin Globulin Ratio 0.7 (0.9-2); Bilirubin,Total 0.3 mg/dl (0.2-1); Ferritin 15.4 ng/ml (8-388); Total Protein 6.8 gm/dl (6.4-8.2)
[2021-02-15] MEDS: APIXABAN 5 MG TABLET PO SCH (10:38)
[2021-02-15] MEDS: MEMANTINE HCL 10 MG TAB PO SCH (10:38)
[2021-02-15] MEDS: POTASSIUM CHLORIDE CRTAB 20 MEQ TABCR PO SCH (10:38)
[2021-02-15] MEDS: FUROSEMIDE 40 MG TAB PO SCH (10:38)
[2021-02-15] MEDS: ASPIRIN 81 MG ECTAB PO SCH (10:38)
[2021-02-15] MEDS: ROSUVASTATIN CALCIUM 20 MG TAB PO SCH (10:38)
[2021-02-15] MEDS: FAMOTIDINE 20 MG in SYRINGE 3 ML IV SCH (10:39)
--- NOTE | 2021-02-15 11:20 | Cardiology Progress Note ---
Date of Service February 15, 2021 Assessment & Plan (1) Persistent atrial fibrillation: (2) Chronic diastolic CHF (congestive heart failure): (3) CAD (coronary artery disease): (4) Atypical chest pain: Plan: Patient is doing well status post transesophageal echocardiogram and electrical cardioversion. Continue amiodarone for rhythm control and apixaban for anticoagulation. Volume status appears appropriate today, recent worsening in heart failure was felt secondary to atrial fibrillation and her furosemide was increased from 40 mg daily to 40 mg twice daily. If she loses more than 3 pounds further, she should decrease her furosemide to 40 mg daily. Given her history of bradycardia after cardioversion, discontinue low-dose metoprolol (she remains on amiodarone). Once effects of sedation dissipate, if she is feeling well she could be discharged home with follow-up by Dr. Delacruz. Admission and Anticipated Discharge Date Admission Date: February 14, 2021 Subjective Patient is doing well with no complaints at rest after transesophageal echocardiogram and elective electrical cardioversion earlier this morning. Her rhythm is currently sinus at 66 bpm. Once the effects of anesthesia wear off, she should be okay for discharge later today (after lunch). Physical Exam Physical Exam: No distress. BP normotensive. Pulse 66 bpm and regular. Skin: no ecchymoses or generalized lesions. HEENT: unremarkable. Neck: no JVD or carotid bruits. Lungs: clear. Cardiac: regular rhythm, no murmur or gallop. Abdomen: benign. Extremities: no edema, pulses intact. Neurologic: Mildly somnolent (post procedure), normal conversation, nonfocal. Results & Data ([facility]) Vital Signs (Past 12 Hours) Vital Signs Temp Pulse Pulse Resp BP Pulse Ox 02/15/21 10:35 76 130/64 02/15/21 08:35 97.5 F L 60 16 101/57 L 98 02/15/21 08:14 61 16 100/53 L 98 02/15/21 08:00 58 L 16 108/51 L 98 02/15/21 07:37 76 16 120/91 96 02/15/21 07:00 76 02/15/21 05:33 97.7 F 82 18 125/68 96 Laboratory Results Hemoglobin 10.4 with normal white count and platelet count. Potassium 3.9. BUN 15, creatinine 1.07. Diagnostic Findings ECG this morning (post cardioversion) shows sinus bradycardia 55 bpm and is unremarkable. Preliminary reading of transesophageal echo shows normal left and right ventricular systolic function, mild ferris valvular regurgitation, no evidence of left atrial appendage thrombus. Negative bubble study for interatrial shunt. PG Care Time/CCT Total # of Minutes Spent Total Time Spent with Patient: Total time spent is greater than 50% in coordination of care (as documented) at patient's floor/unit and/or counseling patient: Coding Level of Care Code 16027 Subseq Hosp Care Lvl 3 Diagnoses Persistent atrial fibrillation I48.19 Chronic diastolic CHF (congestive heart failure) I50.32 CAD (coronary artery disease) I25.10 Atypical chest pain R07.89
[2021-02-15] MEDS: AMIODARONE 200 MG TAB PO SCH (12:05)
[2021-02-15] MEDS ORDERED: IRON SUCROSE 300 MG in SODIUM CHLORIDE 0.9% 250 ML IV ONE (12:30)
--- NOTE | 2021-02-15 12:49 | Discharge Summary ---
Date of Service February 15, 2021 Admission HPI Per Admitting Provider Ximena is a 75-year-old female with past medical history of CAD, A. fib, rectocele, pulmonary nodules, systolic murmur, vaginal prolapse, subdural hematoma, sleep apnea with excessive daytime sleepiness, NSTEMI, celiac disease, and ocular migraine who presented to the emergency department for dizziness. She reports she has had vertigo several years ago. Her current episode improves with keeping her head still, she has vomited. Has been recommended for further evaluation due to history of cardiac disease and midsternal heaviness with symptoms. No shortness of breath or jaw pain. "Fine when I woke up this morning. Drank a cup of coffee and ate 4 cookies and about probably a half hour later everything started to just going around" Similar to past vertigo. Room was spinning around her. Was going to walk over to TV. ~5-6am this morning Last episode many years ago, lasted a few months No recent illnesses In afib for 1 month Increased leg swelling x 3 weeks. 60mg of lasix for a few days as outpt, saw Dr. Delacruz in outpt and was increased to 80mg per day for the last 5 days and was pending a cardioversion.No hx of CHF. Last echo was with a [place] July 2020. Afib first began end of Dec (2 months ago). Vague mild chest '5/10' pressure, 8-10/10 at onset -N/V/D at tiem of assessment. +nausea at episode +1 yellow emesis while dizzy. +burping +constipation. Last BM 2 days ago. Took fiber + stool softener. -diaphoresis +sinus infection 2 weeks ago Medical History: Reviewed Medications: Reviewed. NO meds taken this AM Surgical History: Reviewed Allergies: Reviewed Social History: No tobacco product use, 2 years remote tobacco history quit 1972. No alcohol use. Denies recreational drug use. Lives with . Got the [employer] vaccine x2. Code Status: Full Code. Discussed with pt. Katya Orellana would be surrogate decision maker in an emergency. Herman # [phone] Admission Exam Per Admitting Provider General: A&Ox3. NAD. Cooperative. HEENT: Atraumatic, normocephalic. Pulm: CTAB A&P. -wheezes, -rales, -rhonchi. Symmetrical chest rise. No increase work of breathing. No respiratory distress. Cardiac: Irregularly irregular, -mrg. Radial pulses intact and symmetrical. Abdominal: Nontender, nondistended, soft. BS present. CRANIAL NERVES: II: Pupils equal and reactive, no relative afferent pupillary defect, no VF cuts III, IV, : EOM intact, no gaze preference or deviation. No dizziness with fixed neck tracking eye movements, [place] unable to be assessed due to rapid limiting nausea with head turn. V: normal sensation in V1, V2, and V3 segments bilaterally VII: no asymmetry, no nasolabial fold flattening VIII: normal hearing to speech IX, X: normal palatal elevation, no uvular deviation XI: 5/5 head turn and 5/5 shoulder shrug bilaterally XII: midline tongue protrusion MOTOR: RUE: 5/5 creative consultant strength, finger flexion/extension, interosseus LUE: 5/5 creative consultant strength, finger flexion/extension, interosseus RLE: 5/5 to hip flexion, ankle dorsiflexion/plantarflexion LLE: 5/5 to hip flexion, ankle dorsiflexion/plantarflexion SENSORY: Normal to touch in upper and lower extremities without deficit or asymmetry Extremity: Bilateral lower extremity/ankle edema. Left knee tender to palpation at baseline, patient reports history of replacement with residual tenderness at baseline. Principal Diagnosis Vertigo, Paroxysmal Afib Discharge Exam No distress. BP normotensive. Pulse 66 bpm and regular. Skin: no ecchymoses or generalized lesions. HEENT: unremarkable. Neck: no JVD or carotid bruits. Lungs: clear. Cardiac: regular rhythm, no murmur or gallop. Abdomen: benign. Extremities: no edema, pulses intact. Neurologic: Mildly somnolent (post procedure), normal conversation, nonfocal. Discharge Data Allergies Allergy/AdvReac Type Severity Reaction Status Date / Time gluten Allergy Intermediate Celiac Verified 02/14/21 09:12 disease latex Allergy Mild Rash Verified 02/14/21 09:12 amoxicillin AdvReac Intermediate Yeast Verified 02/14/21 09:12 infection cefdinir AdvReac Intermediate nausea Verified 02/14/21 09:12 Cephalosporins AdvReac Intermediate Yeast Verified 02/14/21 09:12 infection clavulanic acid AdvReac Intermediate Yeast Verified 02/14/21 09:12 infection prednisone AdvReac Intermediate Anxiety Verified 02/14/21 09:12 Consultations 02/14/21 08:56 ED Decision to Admit Stat 02/14/21 14:27 Consult Cardiology Routine 02/15/21 08:00 Consult Anesthesiology Routine Procedures Performed Operation Date: 02/15/21 07:35 Actual Procedures p Echo Transesophageal - Jayy Jaimes MD s Echo Doppler Complete - Jyay Jaimes MD s Echo Color Flow - Jayy Jaimes MD Ordered Studies 02/14/21 07:21 CT head/brain wo con Stat Hospital Course (1) Vertigo: Ximena is a 75-year-old female with past medical history of CAD, A. fib, rectocele, pulmonary nodules, systolic murmur, vaginal prolapse, subdural hematoma, sleep apnea with excessive daytime sleepiness, NSTEMI, celiac disease, and ocular migraine who presented to the emergency department for dizziness. She reports she has had vertigo several years ago. Her current episode improves with keeping her head still, she has vomited. Troponin negative Covid negative CXR: No acute pulmonary disease CThead: No acute intracranial hemorrhage, no evidence of acute territorial infarct or other acute intracranial disease process. Suspected BPPV although has paroxysmal afib which worsens episodes. PT consulted, maneuvers performed without much improvement Cardiology consulted -- hx afib s/p DC CV x 2 and remained in afib while on amiodarone. underwent JOHANA 02/[address] Jaimes with hindu of NSR. Denied any further episodes working with therapy this afternoon and was hopeful for discharge. Her metoprolol was stopped (when in NSR she tends to be radha, and had this reduced as outpatient as well) at discharge and per cardio they may restart if needed as an outpatient Meclizine prn -- had not taken any further doses Of note, patient did have some anemia with normal MCV. B12/folate checked recently and were normal. Iron studies checked and iron low normal and ferritin low normal at 15.4 resulting in trans % sat 11% and was given dose of IV Venofer prior to d/c. She is to follow up with PCP and can consider over the counter supplementation if not able to increase oral intake/red meats/etc. Low iron and Venofer infusion discussed with PCP and rec if she does start oral supplementation to consider stool softeners to prevent constipation. (2) Chest pressure: trop negative - Improved w/ nitro, some residual. Cardioversion as above --> no further chest pain per patient report (3) Afib: Atrial fibrillation On home amiodarone 200 mg p.o. twice daily On apixaban 5 mg p.o. twice daily Rate controlled with metoprolol 12.5 mg p.o. every morning -- d/c as above JOHANA and cardioversion 02/15 with resulting NSR F/u Cards outpatient. Patient does have loop recorder and follows with EP (4) CAD (coronary artery disease): CAD Aspirin 81 mg p.o. every morning Metoprolol as noted above, d/c'd at discharge Continued rosuvastatin 40 mg p.o. daily (5) CD (celiac disease): Celiac diet (6) Sleep apnea: CPAP nightly Discharged home Total Time Total Time Spent Total Time Spent (In Minutes): 35 Discharge Plan Discharge Items Patient Disposition: Home - Self-Care Reason For Visit: CHEST PAIN,DIZZINESS Discharge Diagnosis: Paroxysmal Afib, Dizziness Goals: You have been hospitalized for an acute medical problem. During your stay at [facility], we have made an effort to correct the problem that brought you to the hospital while keeping you as comfortable as possible. Medications were used to bring your condition under control and your discharge instructions will include directions for any medications you should take after leaving the hospital. Please make sure you see your Primary Care Provider as part of your follow up plan. Activity: Resume your previous activity Non-emergency contact: Primary Care Provider and Gasoline Attendant Call non-emergency contact if: you have any medication questions and your symptoms worsen Follow-up/Referrals: Sravan Figueroa MD [Primary Care Provider] - 02/23/21 10:15 am (Your appointment will be with the physican assitant, Dasha Dasilva) Santino Delacruz MD [Physician] - (1 week s/p cardioversion) Diet: Heart Healthy Addtl Attending Provider Instructions: You have been hospitalized for syncope. Cardiology was consulted given back in afib and you underwent a cardioversion. Discussion was had with cardiology and they recommend STOPPING your METOPROLOL given low heart rate when in normal rhythm to prevent hypotension /further lightheadedness. They may consider restarting this as an outpatient but for now PLEASE STOP THIS MEDICATION. Please follow up with cardiology in the next week to monitor your progress as well as with your PCP to monitor how you have been doing since hospitalization. Please continue to monitor your weights daily given your lasix 40mg by mouth twice daily. Per cardiology, if you loose more than 3 pounds further, you should cut this back to once daily and call your doctor sooner. I did check your iron stores (B12 and folate previously done and normal) and they were a little on the lower end of normal. I did order you a dose of IV Venofer (iron) while you were in the hospital but it may not be a bad idea to discuss with your PCP about taking supplementation possibly every 2-3 days to help improve your stores if unable to increase in your diet. Of note, oral supplementation can cause constipation so if you do end up taking this you may need to consider over the counter stool softeners/miralax if that occurs. Return to ER for any chest pain, worsening dizziness/lightheadedness, shortness of breath, or for any other symptoms that are concerning for you. It has been a pleasure being a part of the medical team providing for you while you have been in the hospital. Take care! Pending Studies at Discharge: No Stand-Alone Forms: My [facility], Smoking Cessation Medications and DC Order Prescriptions: Continued Eliquis 5 mg tablet 5 mg PO BID Qty: 180 RF: 3 amiodarone 200 mg tablet 200 mg PO BID Qty: 60 RF: 5 estradiol 0.075 mg/24 hr patch weekly 1 patch topical YARBROUGH Qty: 4 RF: 12 memantine 10 mg tablet 10 mg PO BID Qty: 180 RF: 3 potassium chloride 20 mEq tablet extended release 20 meq PO DAILY Qty: 30 RF: 2 rosuvastatin [Crestor] 40 mg tablet 40 mg PO DAILY Qty: 90 RF: 3 Neuriva Original 50-50 mg tablet,chewable 1 tab PO QAM RF: 0 fluticasone propionate [Flonase Allergy Relief] 50 mcg/actuation spray,yarbrough spension 1 spray intranasal DAILY Qty: 16 RF: 2 CPAP Machine Misc See Rx Instructions .ROUTE .COMPLEX Qty: 1 RF: 0 calcium carbonate [Calcium 600] 600 mg calcium (1,500 mg) Tablet 1,200 mg PO QAM RF: 0 cholecalciferol (vitamin D3) [Vitamin D3] 25 mcg (1,000 unit) Capsule 1,000 unit PO QAM RF: 0 docusate sodium 100 mg Capsule 300 mg PO QAM RF: 0 vitamin B complex Tablet 1 tab PO QAM RF: 0 acetaminophen 325 mg Tablet 650 mg PO Q4H PRN (Reason: pain) Qty: 30 RF: 0 nitroglycerin [Nitrostat] 0.4 mg Tablet, Sublingual See Rx Instructions .ROUTE .COMPLEX PRN (Reason: chest pain) Qty: 25 RF: 0 aspirin 81 mg Tablet,Delayed Release (Dr/Ec) 81 mg PO QAM Qty: 30 RF: 0 furosemide [Lasix] 40 mg tablet 40 mg PO BID RF: 0 Discontinued metoprolol succinate 25 mg Tablet Extended Release 24 Hr 12.5 mg PO QAM RF: 0 Discharge Orders: Discharge Order (Routine); Ordered 02/15/21 Ordered By: Valerie Henderson Admission Data Admit Date/Time: 02/14/21 11:15 Attending Provider: Kamari Alegria Admit Provider: Jesus Manuel Loja Primary Care Provider: Sravan Figueroa Other Providers: Jesus Manuel Loja ; Santino Delacruz ; Zena Jones ; Mindi Kay ; Hanna Brenner ; Vivi Santana ; Mandy Cabrera ; Amol Li ; Isaiah Rodriguez ; Blaise Lucio ; Cameron Perkins ; Amelia Perkins ; Rhett Dyer ; Shy Boyer ; Arsalan Eubanks ; Abiodun Weber ; Giovanny Meléndez ; Skip Souza ; Latasha Banda ; Dirk Amato ; Flora Zamarripa ; Valerie Amato ; Eduardo Xiao ; Erlinda Moreno ; Eddie Ramirez ; Argelia Suggs ; Dede Mo ; Erlinda Germain ; Mona Guevara ; Kyle Orellana ; Sandra Stahl ; Linda Villagomez ; Hannah Cespedes ; Sarah Florez ; Chris Florez V ; Saran Hassan ; Mindi Gupta ; Nikko Sales ; [place] ; Dinorah Oliveros ; Chris Muñiz ; William Banda ; Andrey Thomas ; Joseph Zaragoza ; Neha Glass ; Chris Rodriguez ; Hannah Shelton ; Robert López ; Jefferson Souza ; Mikaela Gan ; Brien Lyle ; Joesph Calvin ; Chadwick Guzman ; Oswald Ryder ; Brien Hermosillo ; Amol Worthington Jr ; Samantha Vázquez Other Interventions: Discharge Summary Assessment (RN) Last Done: 02/15/21 14:58 Supervising Physician Co-Signing Physician Notes During face to face encounter, had a brief discussion about hospital course and complted physical exam. Answered all of the patient's questions. Reviewed above note and agree with it. Discussed discharge plan with patient and APC Henderson. Patient will be discharged with vertigo likely from arrythmia (a. fib) Patient was cardioverted and improved. Discharge meds below. Coding Level of Care Code 43130 OBS Care - Discharge Diagnoses Vertigo R42 Chest pressure R07.89 Afib I48.91 Atrial fibrillation type: unspecified CAD (coronary artery disease) I25.10 CD (celiac disease) K90.0 Sleep apnea G47.30
--- NOTE | 2021-02-15 13:03 | Electrocardiogram Report ---
Test Reason : Blood Pressure : / mmHG Vent. Rate : 055 BPM Atrial Rate : 055 BPM P-R Int : 176 ms QRS Dur : 096 ms QT Int : 450 ms P-R-T Axes : 067 041 048 degrees QTc Int : 430 ms Sinus bradycardia Otherwise normal ECG When compared with ECG of 14-FEB-2021 07:13, Sinus rhythm has replaced Atrial fibrillation Vent. rate has decreased BY 29 BPM Confirmed by Jayy Jaimes ([id number]) on 02/15/2021 1:02:39 PM Referred By: REFERRED SELF Confirmed By:Jayy Jaimes
--- NOTE | 2021-02-15 15:08 | Cardioversion ---
Date of Service February 15, 2021 PG Electrical Cardioversion Rp Electrical Cardioversion Report Indication: Atrial fibrillation Written consent was obtained after the risks and benefits were explained, including but not limited to pain, thermal burn, allergic reaction, aspiration, airway obstruction, laryngospasm, infection, hypotension, and cardiorespiratory arrest. At this time, the risks of the procedure are less than the risks of NOT performing the procedure. A time out was taken and the correct patient and procedure identified. Sedation per anesthesia. The biphasic defibrillator was set to 150 joules of energy and synched. After confirmation of sedation and "all clear" safety check the synchronized shock was delivered. This resulted in successful conversion of the atrial fibrillation back into sinus rhythm. See nursing notes for dosages and times. There were no complications and the patient recovered uneventfully from the procedure. Coding Level of Care Code Cardioversion, elective Additional Codes Electrical Cardioversion Report ([id number])
--- NOTE | 2021-02-15 15:13 | XCELERA ---
[id number]
== END 2021-02-15 17:13 | disposition home or self-care (01) ==
LOC: 2N 07:05 → ED 07:05 → SUATTDRO 11:15 → 2N 13:24

== ENCOUNTER 2021-04-18 11:06 | Inpatient (IN) ==
--- NOTE | 2021-04-18 11:33 | Emergency Department Note ---
History of Present Illness General Chief complaint: Illness Stated complaint: ILLNESS Time Seen by Provider: 04/18/21 11:09 History of Present Illness Maximum Pain Intensity: 3 75-year-old female presents to the ED with a chief complaint of some chest pain, dizziness and lightheadedness that occurred after she had a bowel movement today. She states that she felt constipated and strained to have a bowel movement. She now has some abdominal pain as well. The patient was seen here 2 days ago. She has a known history of an upper GI bleed and has had a progressive decline in her hemoglobin since late February. Her hemoglobin was 8.6 yesterday. She is chronically on apixaban for A. fib. I did speak with GI yesterday and they were going to set her up for a pill swallow study to try to identify the source of the upper GI bleeding. She has already had endoscopy in the past. Home Medications Medication Instructions Recorded Confirmed Type docusate sodium 100 mg capsule 300 mg PO QAM 04/15/18 04/18/21 History vitamin B complex 1 tab PO QAM 04/15/18 04/18/21 History calcium carbonate 600 mg calcium 1,200 mg PO QAM 06/08/19 04/18/21 History (1,500 mg) tablet (Calcium) cholecalciferol (vitamin D3) 25 1,000 unit PO QAM 06/08/19 04/18/21 History mcg (1,000 unit) capsule (Vitamin D3) acetaminophen 325 mg tablet 650 mg PO Q4H PRN #30 tab 09/22/19 04/18/21 Rx coffee extract 50 mg-phosphatidyl 1 tab PO QAM tab 06/04/20 04/18/21 History serine 50 mg chewable tablet (Neuriva Original) aspirin 81 mg tablet,delayed 81 mg PO QAM #30 tab 07/29/20 04/18/21 Rx release apixaban 5 mg tablet (Eliquis) 5 mg PO BID #180 tab 10/08/20 04/18/21 Rx amiodarone 200 mg tablet 200 mg PO BID #60 tab 02/05/21 04/18/21 Rx estradiol 0.075 mg/24 hr weekly 1 patch TOPICAL YARBROUGH #4 ea 02/10/21 04/18/21 Rx transdermal patch furosemide 40 mg tablet (Lasix) 40 mg PO QAM PRN tab 02/22/21 04/18/21 History ferrous sulfate 325 mg (65 mg 325 mg PO QAM 03/19/21 04/18/21 History iron) tablet memantine 10 mg tablet (Namenda) 10 mg PO BID 03/19/21 04/18/21 History pantoprazole 40 mg tablet,delayed 40 mg PO QAM 03/19/21 04/18/21 History release rosuvastatin 40 mg tablet (Crestor) 40 mg PO HS 03/19/21 04/18/21 History nitroglycerin 0.4 mg sublingual 0.4 mg SUBLINGUAL Q5M PRN 04/18/21 04/18/21 History tablet (Nitrostat) tobramycin 0.3 %-dexamethasone 0.1 1 drp OPR BID 04/18/21 04/18/21 History % eye drops,suspension Allergies Allergy/AdvReac Type Severity Reaction Status Date / Time gluten Allergy Intermediate Celiac Verified 04/18/21 11:28 disease latex Allergy Mild Rash Verified 04/18/21 11:28 amoxicillin AdvReac Intermediate Yeast Verified 04/18/21 11:28 infection cefdinir AdvReac Intermediate nausea Verified 04/18/21 11:28 Cephalosporins AdvReac Intermediate Yeast Verified 04/18/21 11:28 infection clavulanic acid AdvReac Intermediate Yeast Verified 04/18/21 11:28 infection prednisone AdvReac Intermediate Anxiety Verified 04/18/21 11:28 Past Med/Surg History Medical History Acute blood loss anemia (ABLA) Anemia Atrial fibrillation Dx'ed 2019 Follows w/ Dr. Delacruz, on Eliquis CAD (coronary artery disease) Medically managed by cardiology NSTEMI 07/27/20- cath demonstrated small branch vessel disease involving small OM to, not amenable to intervention. CD (celiac disease) "Does not" follow gluten-free diet Degenerative disc disease Diastolic CHF Diverticulitis 2013 GI bleed reason for Endoscopy History of paroxysmal supraventricular tachycardia with atrial tachycardia Low back pain with sciatica Non-ST elevation OK (NSTEMI) 07/27/20 Ocular migraine Sleep apnea CPAP Surgical History History of arthroscopy of right shoulder RCR History of cardiac cath 2016, 4/27/21 ([place]) > no stents History of cardioversion x2, most recent 04/2019 History of carpal tunnel release R/L History of cataract surgery History of cholecystectomy History of colonoscopy History of esophagogastroduodenoscopy (EGD) History of foot surgery R/L feet "to straighten toes" History of fracture of left shoulder Plate + screws History of hysterectomy JOANNA + BSO History of incision and drainage Right foot History of tonsillectomy History of total knee replacement Left x2, right x1 S/P transesophageal echocardiogram (JOHANA) Status post placement of implantable loop recorder Implanted 12/2019 Family History Mother Family hx of colon cancer Colorectal cancer Brother Prostate cancer Family history of diabetes mellitus Father Dissecting aortic aneurysm Myocardial infarction Grandmother (Maternal) Stroke Other No family history of adverse response to anesthesia Denies family history of Ovarian cancer Breast cancer Social History Smoking Status: Never smoker Tobacco Type: Cigarettes Age Started Using Tobacco: 19; Age Quit Using Tobacco: 27; packs per day: 0.25; Years Smoked: 8; Second Hand Exposure: No; Hx Alcohol Use: No Hx Substance Use: No Preferred Language: Fijian Communication Ability: Effective Authors Motivational Required: No Beliefs That Will Affect Care: None marital status: Current Living Situation: Spouse Current Living Situation Comment: Lives with 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; 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[employer]; 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 Feels Safe at Home: Yes Childhood Exposure to Second-Hand Smoke: No Dental Care, Regularly: Yes Seatbelt Use: always Sunscreen Use: Yes Assistive Devices: None Review of Systems A total of 10 systems reviewed and were otherwise negative Physical Exam Vital Signs Vital Signs - 24 hr 04/18/21 11:12 04/18/21 11:13 04/18/21 11:29 Temperature 36.6 C Temperature Source Oral Pulse Rate 65 70 86 Pulse Rate [Apical] 70 Pulse Rate from SpO2 Sensor 65 Respiratory Rate 17 20 20 Respiratory Effort / Characteristics Non-Labored Spontaneous Respiratory Depth Normal Respiratory Pattern Regular Blood Pressure 132/55 L 139/65 Blood Pressure [Right Arm] 139/65 Blood Pressure Mean 80 89 Blood Pressure Mean [Right Arm] 89 Pulse Oximetry 98 97 97 Oxygen Delivery Method Room Air Room Air Sepsis Recent Fever Within 48 Hours No Sepsis New/Unexplained Change in Mental Status No Sepsis Action Taken by Nursing No Action Required 04/18/21 11:30 04/18/21 12:16 04/18/21 12:30 Temperature Temperature Source Pulse Rate 60 71 62 Pulse Rate [Apical] Pulse Rate from SpO2 Sensor 61 71 62 Respiratory Rate 12 16 17 Respiratory Effort / Characteristics Respiratory Depth Respiratory Pattern Blood Pressure 141/57 H Blood Pressure [Right Arm] Blood Pressure Mean 85 Blood Pressure Mean [Right Arm] Pulse Oximetry 99 97 92 Oxygen Delivery Method Sepsis Recent Fever Within 48 Hours Sepsis New/Unexplained Change in Mental Status Sepsis Action Taken by Nursing 04/18/21 12:33 04/18/21 13:00 04/18/21 13:30 Temperature Temperature Source Pulse Rate 61 59 L 58 L Pulse Rate [Apical] Pulse Rate from SpO2 Sensor 62 59 L 57 L Respiratory Rate 18 17 14 Respiratory Effort / Characteristics Respiratory Depth Respiratory Pattern Blood Pressure 129/53 L 137/58 L 133/61 Blood Pressure [Right Arm] Blood Pressure Mean 78 84 85 Blood Pressure Mean [Right Arm] Pulse Oximetry 96 95 100 Oxygen Delivery Method Sepsis Recent Fever Within 48 Hours Sepsis New/Unexplained Change in Mental Status Sepsis Action Taken by Nursing CONSTITUTIONAL/VITAL SIGNS: Reviewed / noted above. GENERAL: Non-toxic in appearance. INTEGUMENTARY: Warm, dry, and [place]. HEAD: Normocephalic. EYES: without scleral icterus or trauma. ENT/OROPHARYNX: clear and moist. LYMPHADENOPATHY/NECK: Is supple without lymphadenopathy or meningismus. RESPIRATORY: Clear to auscultation bilaterally. No increased work of breathing. CARDIOVASCULAR: Regular rate and rhythm. GI/ABDOMEN: Soft and diffusely tender possibly related to straining to have a bowel movement earlier today. No organomegaly or pulsatile mass. EXTREMITIES: Warm and well perfused. BACK: No CVA tenderness. NEUROLOGICAL: Intact without focal deficits. PSYCHIATRIC: normal affect. MUSCULOSKELETAL: Normally developed with good muscle tone. TRIAGE NURSING DOCUMENTATION REVIEWED. Course Administered Medications Discontinued Medications Ioversol (Optiray 320 100ml) 93 ml IV ONCE ONE Stop: 04/18/21 12:13 Last Admin: 04/18/21 12:13 Dose: 93 ml Documented by: [id number] Medical Decision Making Differential Diagnosis Differential includes acute coronary syndrome, myocardial infarction, CVA, TIA, anemia, infection, pneumonia, UTI, pyelonephritis, poor nutrition, dehydration, electrolyte disturbance,hypoglycemia. Medical Records Attestation: I reviewed the patient's medical records. Home Medications Current Medication List: was personally reviewed by me Laboratory Data Attestation: I reviewed the patient's lab results. Result diagrams: 04/18/21 11:11 04/18/21 11:11 Lab Results 04/18/21 04/18/21 04/18/21 Range/Units 11:11 11:11 11:33 WBC 6.85 (4.8-10.8) K/uL RBC 2.90 L (4.2-5.4) M/uL Hgb 8.4 L (12.0-16.0) g/dL Hct 26.4 L (37-47) % MCV 91.0 (80-100) fL MCH 29.0 (25-34) pg MCHC 31.8 L (32-36) g/dL RDW Std Deviation 55.9 H (36.4-46.3) fL RDW Coeff of [place] 16.6 H (11.5-14.5) % Plt Count 378 (130-400) K/uL MPV 10.5 H (7.4-10.4) fL Immature Gran % (Auto) 0.0 % Neut % (Auto) 68.9 % Lymph % (Auto) 20.1 % [place] % (Auto) 9.9 % Eos % (Auto) 0.7 % Baso % (Auto) 0.4 % Neut # (Auto) 4.71 (1.4-6.5) K/uL Lymph # (Auto) 1.38 (1.2-3.4) K/uL [place] # (Auto) 0.68 H (0.11-0.59) K/uL Eos # (Auto) 0.05 (0-0.5) K/uL Baso # (Auto) 0.03 (0-0.2) K/uL Immature Gran # (Auto) 0.00 (0.00-0.02) K/uL Sodium 137 (136-145) mmol/L Potassium 3.2 L (3.5-5.1) mmol/L Chloride 100 (98-107) mmol/L Carbon Dioxide 29 (21-32) mmol/L Anion Gap 8 (3-11) BUN 15 (6-23) mg/dl Creatinine 1.13 (0.6-1.2) mg/dl Est Cr Clr Drug Dosing 49.6 ml/min Est GFR ( Amer) 55.1 ml/min Est GFR (Non-Af Amer) 47.5 ml/min BUN/Creatinine Ratio 13.3 (10-20) Glucose 146 H (70-99) mg/dl Calcium 8.8 (8.5-10.1) mg/dl Total Bilirubin 0.4 (0.2-1.0) mg/dl AST 22 (13-39) U/L ALT 17 (7-52) U/L Alkaline Phosphatase 69 (34-104) U/L Total Protein 6.8 (6.0-8.3) gm/dl Albumin 3.9 (3.4-5.0) gm/dl Globulin 2.9 (2.5-4.0) gm/dl Albumin/Globulin Ratio 1.3 (0.9-2) TSH (0.300-4.500) uIu/ml Blood Type O Positive Antibody Screen NEGATIVE Crossmatch See Detail 04/18/21 Range/Units 11:34 WBC (4.8-10.8) K/uL RBC (4.2-5.4) M/uL Hgb (12.0-16.0) g/dL Hct (37-47) % MCV (80-100) fL MCH (25-34) pg MCHC (32-36) g/dL RDW Std Deviation (36.4-46.3) fL RDW Coeff of [place] (11.5-14.5) % Plt Count (130-400) K/uL MPV (7.4-10.4) fL Immature Gran % (Auto) % Neut % (Auto) % Lymph % (Auto) % [place] % (Auto) % Eos % (Auto) % Baso % (Auto) % Neut # (Auto) (1.4-6.5) K/uL Lymph # (Auto) (1.2-3.4) K/uL [place] # (Auto) (0.11-0.59) K/uL Eos # (Auto) (0-0.5) K/uL Baso # (Auto) (0-0.2) K/uL Immature Gran # (Auto) (0.00-0.02) K/uL Sodium (136-145) mmol/L Potassium (3.5-5.1) mmol/L Chloride (98-107) mmol/L Carbon Dioxide (21-32) mmol/L Anion Gap (3-11) BUN (6-23) mg/dl Creatinine (0.6-1.2) mg/dl Est Cr Clr Drug Dosing ml/min Est GFR ( Amer) ml/min Est GFR (Non-Af Amer) ml/min BUN/Creatinine Ratio (10-20) Glucose (70-99) mg/dl Calcium (8.5-10.1) mg/dl Total Bilirubin (0.2-1.0) mg/dl AST (13-39) U/L ALT (7-52) U/L Alkaline Phosphatase (34-104) U/L Total Protein (6.0-8.3) gm/dl Albumin (3.4-5.0) gm/dl Globulin (2.5-4.0) gm/dl Albumin/Globulin Ratio (0.9-2) TSH 1.447 (0.300-4.500) uIu/ml Blood Type Antibody Screen Crossmatch Imaging Data Radiologist's Impression: Abdomen/Pelvis CT 04/18/21 11:21 CT abd pelvis IV con only CLINICAL HISTORY: abd pain generalized, gi bleed(upper) COMPARISON STUDY: 02/23/2021 CT DOSE: 533.82 mGy.cm TECHNIQUE: Standard CT of the Abdomen and Pelvis was performed with IV contrast. A dose lowering technique was utilized adhering to the principles of ALARA. Contrast Volume: Optiray 320, 93 ml. The patient did not receive oral contrast. FINDINGS: Lung base: The lung bases are clear. Abdominal cavity: There is no evidence for abdominal mass, adenopathy or ascites. Liver: There is homogeneous attenuation of the liver parenchyma. There is no evidence for enhancing mass lesion. Spleen: There is homogeneous attenuation of the splenic parenchyma. There is no enhancing mass lesion. Pancreas: There is homogeneous attenuation of the pancreatic parenchyma. There is no evidence for mass lesion or peripancreatic fluid collection. Gall Bladder: Surgical clips are present previous cholecystectomy. Adrenal glands: The adrenal glands are normal in size and attenuation. There is no evidence for enhancing mass lesion. Kidneys: There is homogeneous attenuation of the renal parenchyma bilaterally. There is no evidence for renal calculus or hydronephrosis. There is no evidence for enhancing mass. Bowel: There are patchy foci of increased attenuation within the cecum which is highly suspicious for the presence of active bleeding. Radionuclide red blood cell bleeding study would be the study of choice for further evaluation. The bowel loops are otherwise normally placed within the abdomen and pelvis without evidence for dilatation or obstruction. There is no evidence for mass lesion. There is extensive sigmoid diverticulosis without evidence for diverticulitis. There is also mild to moderate fecal stasis without impaction or obstruction. There are no inflammatory changes present. There is no evidence for free air. Bladder: The bladder is within normal limits with no evidence for focal mass, calculus or diverticulum. : There is no evidence for pelvic mass or adenopathy. There is no evidence for pelvic ascites. Vasculature: There is no evidence for aneurysmal dilatation of the abdominal aorta. Osseous structures: There is no acute osseous pathology. Degenerative changes are seen within the spine. IMPRESSION: 1. Ill-defined foci of increased attenuation within the cecum highly suspicious for the presence of active bleeding. Radionuclide red blood cell study is recommended for further evaluation. 2. Diverticulosis without evidence for diverticulitis. ACT 112: Negative or not required by law. Electronically signed by: Max Matthews M.D. 04/18/2021 12:39 PM Chest X-Ray 04/18/21 11:21 XR chest 1V portable CLINICAL HISTORY: weakness. Evaluate cardiopulmonary status. Nonsmoker for 40 years COMPARISON STUDY: 04/16/2021 TECHNIQUE: 1 view of the chest FINDINGS: Single frontal view of the chest demonstrates the cardiomediastinal silhouette to be within normal limits. A loop recorder is in place. The lungs are clear of alveolar opacities. There is no evidence for pleural effusion. There is no evidence for vascular congestion. There is no acute osseous pathology. IMPRESSION: No acute cardiopulmonary disease. ACT 112: Negative or not required by law. Electronically signed by: Max Matthews M.D. 04/18/2021 12:02 PM ECG Data Attestation: I personally reviewed and interpreted this ECG as follows: Additional Comments: Twelve-lead EKG: Per my interpretation there is a normal sinus rhythm at a rate of 68. No ST elevation. No PVCs. Normal QTC. MDM Narrative Patient presents with some chest pains and abdominal pains as well as some lightheadedness and dizziness. She has a known upper GI bleed that seems to be chronic but progressive in nature. 2 days ago her hemoglobin was 8.6. She did have guaiac positive black stools 2 days ago. She does report black stools again this morning. She denied any gross bleeding. This hemoglobin has been progressively declining over the past couple of months. I did speak to gastroenterology 2 days ago about the patient and they were going to set the patient up for a camera pill swallow study. The patient's hemoglobin today is slightly lower than 2 days ago. It was 8.6 and today is 8.4. The CT scan of the pelvis suggest possible active bleeding in the cecum. The patient is on apixaban chronically. There is no other acute intra-abdominal process on CT scan. Chest x-ray was negative for acute disease. Blood work is otherwise unremarkable for any significant abnormality. Because the patient is CT findings and anemia, I feel the patient should be observed overnight to evaluate for any active GI bleeding and assess for transfusion. I did speak with the hospitalist about the patient. Impression & Plan Anemia, GI bleed Discharge Plan Visit Data Chief Complaint: Illness Stated Complaint: ILLNESS ED Provider: Cirilo Alejandro Discharge Problem: Anemia, GI bleed Patient Disposition: Being Evaluated by Hospitalist Forms Stand Alone Forms: My [facility], Virtual Emergency Department, Important Visit Information Prescriptions Prescriptions: No Action Eliquis 5 mg tablet 5 mg PO BID Qty: 180 RF: 3 amiodarone 200 mg tablet 200 mg PO BID Qty: 60 RF: 5 estradiol 0.075 mg/24 hr patch weekly 1 patch topical YARBROUGH Qty: 4 RF: 12 Neuriva Original 50-50 mg tablet,chewable 1 tab PO QAM RF: 0 furosemide [Lasix] 40 mg tablet 40 mg PO QAM PRN (Reason: Edema) RF: 0 calcium carbonate [Calcium 600] 600 mg calcium (1,500 mg) Tablet 1,200 mg PO QAM RF: 0 cholecalciferol (vitamin D3) [Vitamin D3] 25 mcg (1,000 unit) Capsule 1,000 unit PO QAM RF: 0 docusate sodium 100 mg Capsule 300 mg PO QAM RF: 0 vitamin B complex Tablet 1 tab PO QAM RF: 0 acetaminophen 325 mg Tablet 650 mg PO Q4H PRN (Reason: pain) Qty: 30 RF: 0 aspirin 81 mg Tablet,Delayed Release (/Ec) 81 mg PO QAM Qty: 30 RF: 0 pantoprazole 40 mg tablet,delayed release (DR/EC) 40 mg PO QAM RF: 0 ferrous sulfate 325 mg (65 mg iron) tablet 325 mg PO QAM RF: 0 rosuvastatin [Crestor] 40 mg tablet 40 mg PO HS RF: 0 memantine [Namenda] 10 mg tablet 10 mg PO BID RF: 0 nitroglycerin [Nitrostat] 0.4 mg tablet, sublingual 0.4 mg sublingual Q5M PRN (Reason: chest pain) RF: 0 Referrals Referrals: Sravan Figueroa MD [Primary Care Provider] -
[2021-04-18 11:45] LABS: Basophils # (auto) 0.03 K/uL (0-0.2); Basophils % (auto) 0.4 %; Eosinophils # (auto) 0.05 K/uL (0-0.5); Eosinophils % (auto) 0.7 %; Hematocrit (blood only) 26.4 % (37-47); Hemoglobin 8.4 g/dL (12.0-16.0); Lymphocytes # (auto) 1.38 K/uL (1.2-3.4); Lymphocytes % (auto) 20.1 %; Mean Corpuscular Hgb Conc 31.8 g/dL (32-36); Mean Platelet Volume 10.5 fL (7.4-10.4); Monocytes # (auto) 0.68 K/uL (0.11-0.59); Monocytes % (auto) 9.9 %; Neutrophils # (auto) 4.71 K/uL (1.4-6.5); Neutrophils % (auto) 68.9 %; Platelet Count 378 K/uL (130-400); RDW Coefficient of Variation 16.6 % (11.5-14.5); RDW Standard Deviation 55.9 fL (36.4-46.3); White Blood Count 6.85 K/uL (4.8-10.8)
[2021-04-18 11:54] LABS: Albumin Globulin Ratio 1.3 (0.9-2); Albumin Level 3.9 gm/dl (3.4-5.0); BUN Creatinine Ratio 13.3 (10-20); Bilirubin,Total 0.4 mg/dl (0.2-1.0); Calcium 8.8 mg/dl (8.5-10.1); Creatinine Clr Calc Pharmacy 49.6 ml/min; Est GFR (African American) 55.1 ml/min; Est GFR (Non-African American) 47.5 ml/min; Globulin 2.9 gm/dl (2.5-4.0); Potassium 3.2 mmol/L (3.5-5.1); Total Protein 6.8 gm/dl (6.0-8.3)
--- NOTE | 2021-04-18 12:03 | XRay Report ---
XR chest 1V portable CLINICAL HISTORY: weakness. Evaluate cardiopulmonary status. Nonsmoker for 40 years COMPARISON STUDY: 04/16/2021 TECHNIQUE: 1 view of the chest FINDINGS: Single frontal view of the chest demonstrates the cardiomediastinal silhouette to be within normal li mits. A loop recorder is in place. The lungs are clear of alveolar opacities. There is no evidence fo r pleural effusion. There is no evidence for vascular congestion. There is no acute osseous pathology . IMPRESSION: No acute cardiopulmonary disease. ACT 112: Negative or not required by law. Electronically signed by: Max Matthews M.D. 04/18/2021 12:02 PM
[2021-04-18] MEDS ORDERED: OPTIRAY 320 100ml IV ONE (12:12)
--- NOTE | 2021-04-18 12:41 | CT Scan Report ---
CT abd pelvis IV con only CLINICAL HISTORY: abd pain generalized, gi bleed(upper) COMPARISON STUDY: 02/23/2021 CT DOSE: 533.82 mGy.cm TECHNIQUE: Standard CT of the Abdomen and Pelvis was performed with IV contrast. A dose lowering theresa hnique was utilized adhering to the principles of ALARA. Contrast Volume: Optiray 320, 93 ml. The patient did not receive oral contrast. FINDINGS: Lung base: The lung bases are clear. Abdominal cavity: There is no evidence for abdominal mass, adenopathy or ascites. Liver: There is homogeneous attenuation of the liver parenchyma. There is no evidence for enhancing m ass lesion. Spleen: There is homogeneous attenuation of the splenic parenchyma. There is no enhancing mass lesion . Pancreas: There is homogeneous attenuation of the pancreatic parenchyma. There is no evidence for mas s lesion or peripancreatic fluid collection. Gall Bladder: Surgical clips are present previous cholecystectomy. Adrenal glands: The adrenal glands are normal in size and attenuation. There is no evidence for enhan cing mass lesion. Kidneys: There is homogeneous attenuation of the renal parenchyma bilaterally. There is no evidence f or renal calculus or hydronephrosis. There is no evidence for enhancing mass. Bowel: There are patchy foci of increased attenuation within the cecum which is highly suspicious for the presence of active bleeding. Radionuclide red blood cell bleeding study would be the study of oicy for further evaluation. The bowel loops are otherwise normally placed within the abdomen and pelvis without evidence for dil atation or obstruction. There is no evidence for mass lesion. There is extensive sigmoid diverticulos is without evidence for diverticulitis. There is also mild to moderate fecal stasis without impaction or obstruction. There are no inflammatory changes present. There is no evidence for free air. Bladder: The bladder is within normal limits with no evidence for focal mass, calculus or diverticulu m. : There is no evidence for pelvic mass or adenopathy. There is no evidence for pelvic ascites. Vasculature: There is no evidence for aneurysmal dilatation of the abdominal aorta. Osseous structures: There is no acute osseous pathology. Degenerative changes are seen within the spi ne. IMPRESSION: 1. Ill-defined foci of increased attenuation within the cecum highly suspicious for the presence of a ctive bleeding. Radionuclide red blood cell study is recommended for further evaluation. 2. Diverticulosis without evidence for diverticulitis. ACT 112: Negative or not required by law. Electronically signed by: Max Matthews M.D. 04/18/2021 12:39 PM
[2021-04-18] MEDS ORDERED: SODIUM CHLORIDE 0.9% 250 ML IV PRN ×2 (13:36→22:00)
--- NOTE | 2021-04-18 13:52 | History & Physical Report ---
Date of Service April 18, 2021 Assessment & Plan (1) Symptomatic anemia: Plan: Difficult to completely rule out symptoms coming from her anemia since it has been trending down and Hgb < 9. Aim Hgb > 9 with 1 unit blood transfusion. Will take ferritin and transferrin saturations prior to blood transfusion to confirm iron def. Fecal occult blood to assess for GI bleed loss (presumed due to history) (2) Acute blood loss anemia: Plan: As above Consult gastroenterology (3) Sleep apnea: Plan: Intolerant to CPAP current due to her current eye problem (4) Atrial fibrillation status post cardioversion: Plan: Holding anticoagulation with Eliquis secondary to GI bleed as above Monitor on telemetry - currently in NSR ontinue rhythm control with amiodarone (5) Fatigue: Plan: Susect anemia contributing or atleast difficult to rule out unless Hgb stable above 9. Timeline possible also fits with memantine use and could consider holding this if transfusions do not help her symptoms - additional symptoms of coughing, dry mouth and dysphonia. Additionally stress likely contributing with her leaving her TSH WNL (6) CAD (coronary artery disease): Plan: NSTEMI in July 2020 - medically managed Symptoms not suggestive of angina Suspect she can stop her aspirin and continue Eliquis alone in setting of acute on chronic GI bleed on discharge but will discuss with cardiology prior to discharge - both on hold currently Continue rosuvastatin (7) Chronic diastolic CHF (congestive heart failure): Plan: Appears to be euvolemic currently Continue her usual dose of lasix 40 mg PO daily, monitor for overload with blood transfusions (8) CD (celiac disease): Plan: Gluten free diet Does not follow gluten free diet - consider outpatient anti-TTG IgA testing to see if this is effecting her weight loss however given constipation rather than diarrhea is her current problem will defer this to GI (9) Chronic cough: Plan: SLT assessment Plan: VTE Prophylaxis - Eliquis on hold due to possibility of acut blood loss on CT Diet - clear liquid, gluten free Disposition - admit to med/tele Admission and Anticipated Discharge Date Admission Date: April 18, 2021 History of Present Illness Chief Complaint: Fatigue, dizziness Primary Care Provider: Sravan Figueroa MD Ximena Maxwell is a 75 year old female who presents to the ER with fatigue, dizziness and lightheadedness and generalized weakness. She reports her symptoms have been ongoing but progressively getting worse since her last EGD in March. She was recently in the ER 2 days ago but returns today after feeling dizzy from straining while on the toilet with new left sided abdominal pain. She denies any nausea or vomiting. She has had dark stool constantly over the last year which has not recently changed in color. No bright red blood in stool. She also reports increased stress recently with her going through a possible divorce with her after he was admitted to a behavioral institution. She also reports coughing and dysphonia since her last EGD in March. In the ER CT was concerning for an active bleed. Hemoglobin 8.4 from 8.6 2 days previously. Her daughter at bedside is concerned she appears to have declined a lot over the last 6 months. Allergies Allergy/AdvReac Type Severity Reaction Status Date / Time gluten Allergy Intermediate Celiac Verified 04/18/21 11:28 disease latex Allergy Mild Rash Verified 04/18/21 11:28 amoxicillin AdvReac Intermediate Yeast Verified 04/18/21 11:28 infection cefdinir AdvReac Intermediate nausea Verified 04/18/21 11:28 Cephalosporins AdvReac Intermediate Yeast Verified 04/18/21 11:28 infection clavulanic acid AdvReac Intermediate Yeast Verified 04/18/21 11:28 infection prednisone AdvReac Intermediate Anxiety Verified 04/18/21 11:28 Home Medications Medication Instructions Recorded Confirmed Type docusate sodium 100 mg capsule 300 mg PO QAM 04/15/18 04/18/21 History vitamin B complex 1 tab PO QAM 04/15/18 04/18/21 History calcium carbonate 600 mg calcium 1,200 mg PO QAM 06/08/19 04/18/21 History (1,500 mg) tablet (Calcium) cholecalciferol (vitamin D3) 25 1,000 unit PO QAM 06/08/19 04/18/21 History mcg (1,000 unit) capsule (Vitamin D3) acetaminophen 325 mg tablet 650 mg PO Q4H PRN #30 tab 09/22/19 04/18/21 Rx coffee extract 50 mg-phosphatidyl 1 tab PO QAM tab 06/04/20 04/18/21 History serine 50 mg chewable tablet (Neuriva Original) aspirin 81 mg tablet,delayed 81 mg PO QAM #30 tab 07/29/20 04/18/21 Rx release apixaban 5 mg tablet (Eliquis) 5 mg PO BID #180 tab 10/08/20 04/18/21 Rx amiodarone 200 mg tablet 200 mg PO BID #60 tab 02/05/21 04/18/21 Rx estradiol 0.075 mg/24 hr weekly 1 patch TOPICAL YARBROUGH #4 ea 02/10/21 04/18/21 Rx transdermal patch furosemide 40 mg tablet (Lasix) 40 mg PO QAM PRN tab 02/22/21 04/18/21 History ferrous sulfate 325 mg (65 mg 325 mg PO QAM 03/19/21 04/18/21 History iron) tablet memantine 10 mg tablet (Namenda) 10 mg PO BID 03/19/21 04/18/21 History pantoprazole 40 mg tablet,delayed 40 mg PO QAM 03/19/21 04/18/21 History release rosuvastatin 40 mg tablet (Crestor) 40 mg PO HS 03/19/21 04/18/21 History nitroglycerin 0.4 mg sublingual 0.4 mg SUBLINGUAL Q5M PRN 04/18/21 04/18/21 History tablet (Nitrostat) tobramycin 0.3 %-dexamethasone 0.1 1 drp OPR BID 04/18/21 04/18/21 History % eye drops,suspension Past Med/Surg History Medical History Acute blood loss anemia (ABLA) Anemia Atrial fibrillation Dx'ed 2019 Follows w/ Dr. Delacruz, on Eliquis CAD (coronary artery disease) Medically managed by cardiology NSTEMI 07/27/20- cath demonstrated small branch vessel disease involving small OM to, not amenable to intervention. CD (celiac disease) "Does not" follow gluten-free diet Degenerative disc disease Diastolic CHF Diverticulitis 2013 GI bleed reason for Endoscopy History of paroxysmal supraventricular tachycardia with atrial tachycardia Low back pain with sciatica Non-ST elevation ID (NSTEMI) 07/27/20 Ocular migraine Sleep apnea CPAP Surgical History History of arthroscopy of right shoulder RCR History of cardiac cath 2016, 07/28/20 ([place]) > no stents History of cardioversion x2, most recent 04/2019 History of carpal tunnel release R/L History of cataract surgery History of cholecystectomy History of colonoscopy History of esophagogastroduodenoscopy (EGD) History of foot surgery R/L feet "to straighten toes" History of fracture of left shoulder Plate + screws History of hysterectomy JOANNA + BSO History of incision and drainage Right foot History of tonsillectomy History of total knee replacement Left x2, right x1 S/P transesophageal echocardiogram (JOHANA) Status post placement of implantable loop recorder Implanted 12/2019 Family History Mother Family hx of colon cancer Colorectal cancer Brother Prostate cancer Family history of diabetes mellitus Father Dissecting aortic aneurysm Myocardial infarction Grandmother (Maternal) Stroke Other No family history of adverse response to anesthesia Denies family history of Ovarian cancer Breast cancer Social History Smoking Status: Never smoker Tobacco Type: Cigarettes Age Started Using Tobacco: 19; Age Quit Using Tobacco: 27; packs per day: 0.25; Years Smoked: 8; Second Hand Exposure: No; Hx Alcohol Use: No Hx Substance Use: No Preferred Language: Indonesian Communication Ability: Effective Responder Required: No Beliefs That Will Affect Care: None marital status: Current Living Situation: Alone Current Living Situation Comment: just left her 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; 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[employer]; 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 Feels Safe at Home: Yes Safety Concerns: Feels Safe At This Time Childhood Exposure to Second-Hand Smoke: No Dental Care, Regularly: Yes Seatbelt Use: always Sunscreen Use: Yes Assistive Devices: Glasses Review of Systems Review of Systems: All systems reviewed & are unremarkable except as noted in HPI & below Ongoing problems with leg swelling actually better today with recent increased dose of Lasix to 80mg PO daily but now back to 40mg PO daily Physical Exam Constitutional: well developed; + not well nourished and no acute distress Eyes: PERRL, conjunctivae normal, anicteric sclerae ENMT: Mouth: + dry oral mucous membranes Neck: trachea midline, no thyromegaly Respiratory: normal respiratory effort, lungs clear to auscultation Cardiovascular: Rate/Rhythm: regular rate and regular rhythm Heart Sounds: no murmur Extremities: normal capillary refill and + pedal edema (trace ankle b/l equal); no calf tenderness Gastrointestinal (Abdomen): Inspection/Auscultation: abdomen normal to inspection and normal bowel sounds; abdomen not distended Percussion/Palpation: + abdomen tender (left sided) and abdomen soft; no gu arding and abdomen not rigid Musculoskeletal: no cyanosis or clubbing, extremities motor strength 5/5 Skin: no rashes, warm and dry Neurologic: moves all extremities and awake; no focal motor deficits (no lateralizing deficit) and not confused Psychiatric: A+Ox3, euthymic affect Results & Data Results & Data ([facility]) Vital Signs (Past 12 Hours) Vital Signs Temp Pulse Pulse Resp BP BP Pulse Ox 04/18/21 13:30 58 L 14 133/61 100 04/18/21 13:00 59 L 17 137/58 L 95 04/18/21 12:33 61 18 129/53 L 96 04/18/21 12:30 62 17 92 04/18/21 12:16 71 16 97 04/18/21 11:30 60 12 141/57 H 99 04/18/21 11:29 86 20 97 04/18/21 11:13 36.6 C 70 70 20 139/65 139/65 97 04/18/21 11:12 65 17 132/55 L 98 Diagnostic Findings XR chest 1V portable CLINICAL HISTORY: weakness. Evaluate cardiopulmonary status. Nonsmoker for 40 years COMPARISON STUDY: 04/16/2021 TECHNIQUE: 1 view of the chest FINDINGS: Single frontal view of the chest demonstrates the cardiomediastinal silhouette to be within normal limits. A loop recorder is in place. The lungs are clear of alveolar opacities. There is no evidence for pleural effusion. There is no evidence for vascular congestion. There is no acute osseous pathology. IMPRESSION: No acute cardiopulmonary disease. CT abd pelvis IV con only CLINICAL HISTORY: abd pain generalized, gi bleed(upper) COMPARISON STUDY: 02/23/2021 CT DOSE: 533.82 mGy.cm TECHNIQUE: Standard CT of the Abdomen and Pelvis was performed with IV contrast. A dose lowering technique was utilized adhering to the principles of ALARA. Contrast Volume: Optiray 320, 93 ml. The patient did not receive oral contrast. FINDINGS: Lung base: The lung bases are clear. Abdominal cavity: There is no evidence for abdominal mass, adenopathy or ascites. Liver: There is homogeneous attenuation of the liver parenchyma. There is no evidence for enhancing mass lesion. Spleen: There is homogeneous attenuation of the splenic parenchyma. There is no enhancing mass lesion. Pancreas: There is homogeneous attenuation of the pancreatic parenchyma. There is no evidence for mass lesion or peripancreatic fluid collection. Gall Bladder: Surgical clips are present previous cholecystectomy. Adrenal glands: The adrenal glands are normal in size and attenuation. There is no evidence for enhancing mass lesion. Kidneys: There is homogeneous attenuation of the renal parenchyma bilaterally. There is no evidence for renal calculus or hydronephrosis. There is no evidence for enhancing mass. Bowel: There are patchy foci of increased attenuation within the cecum which is highly suspicious for the presence of active bleeding. Radionuclide red blood cell bleeding study would be the study of choice for further evaluation. The bowel loops are otherwise normally placed within the abdomen and pelvis without evidence for dilatation or obstruction. There is no evidence for mass lesion. There is extensive sigmoid diverticulosis without evidence for diverticulitis. There is also mild to moderate fecal stasis without impaction or obstruction. There are no inflammatory changes present. There is no evidence for free air. Bladder: The bladder is within normal limits with no evidence for focal mass, calculus or diverticulum. : There is no evidence for pelvic mass or adenopathy. There is no evidence for pelvic ascites. Vasculature: There is no evidence for aneurysmal dilatation of the abdominal aorta. Osseous structures: There is no acute osseous pathology. Degenerative changes are seen within the spine. IMPRESSION: 1. Ill-defined foci of increased attenuation within the cecum highly suspicious for the presence of active bleeding. Radionuclide red blood cell study is recommended for further evaluation. 2. Diverticulosis without evidence for diverticulitis. Medications Administered ER medications Given: None ECG Indication: syncope (pre) Rate (beats per minute): 68 Rhythm: normal sinus Findings: no acute ischemic change Comparison ECG Date: from (Apr 16, 2021) Change: no significant change Code Status & VTE Plan Code Status Full VTE Prophylaxis Plan VTE Prophylaxis will be ordered: No Reason for no VTE drug order: Contraindicated Reason for no VTE mechanical prophylaxis: Treatment not indicated PG Care Time/CCT Total # of Minutes Spent Total Time Spent with Patient: Total time spent is greater than 50% in coordination of care (as documented) at patient's floor/unit and/or counseling patient: Coding Level of Care Code INT OBSERVATION CARE 70M LVL 3 Diagnoses Acute blood loss anemia D62 Symptomatic anemia D64.9 Sleep apnea G47.30 Atrial fibrillation status post cardioversion I48.91 Fatigue R53.83 Fatigue type: unspecified CAD (coronary artery disease) I25.10 Chronic diastolic CHF (congestive heart failure) I50.32 CD (celiac disease) K90.0 Chronic cough R05.3 (1) Fatigue Fatigue type: unspecified Qualified Code(s): R53.83 - Other fatigue
[2021-04-18 14:27] LABS: Iron 84 mcg/dl (35-150); Total Iron Binding Cap Calc 340 mcg/dl (250-450); Transferrin (FE) Percent Satur 25 % (15-50); Unsaturated Iron Binding Cap 256 mcg/dl (155-355)
[2021-04-18] MEDS ORDERED: ACETAMINOPHEN 325 MG TAB PO PRN (15:51)
[2021-04-18] MEDS ORDERED: ONDANSETRON INJ 2 MG/ML 2 ML VIAL IV PRN (15:51)
[2021-04-18] MEDS ORDERED: ACETAMINOPHEN 325 MG TAB ONE (15:57)
[2021-04-18] MEDS: ROSUVASTATIN CALCIUM 20 MG TAB PO SCH (20:27)
[2021-04-18] MEDS: AMIODARONE 200 MG TAB PO SCH (20:28)
[2021-04-18] MEDS: MEMANTINE HCL 10 MG TAB PO SCH (20:29)
[2021-04-18] MEDS: TOBRAMYCIN/DEXAMETHASONE OPH SUSP 2.5 ML BTL OPR SCH (20:30)
[2021-04-18] MEDS: POLYETHYLENE (MIRALAX) 17 GM PACK PO SCH (20:30)
[2021-04-18 20:49] LABS: Hematocrit (blood only) 27.8 % (37-47); Hemoglobin 8.9 g/dL (12.0-16.0)
[2021-04-19] MEDS: CALCIUM CARBONATE 1250MG TAB PO SCH (08:01)
[2021-04-19] MEDS: DOCUSATE SODIUM 100 MG CAP PO SCH (08:02)
[2021-04-19] MEDS: AMIODARONE 200 MG TAB PO SCH ×2 (08:02→21:09)
[2021-04-19] MEDS: CHOLECALCIFEROL 1,000 UNITS 25 MCG TAB PO SCH (08:02)
[2021-04-19] MEDS: MEMANTINE HCL 10 MG TAB PO SCH ×2 (08:02→21:08)
[2021-04-19] MEDS: TOBRAMYCIN/DEXAMETHASONE OPH SUSP 2.5 ML BTL OPR SCH ×2 (08:02→21:08)
[2021-04-19] MEDS: PANTOprazole 40 MG TAB PO SCH (08:02)
[2021-04-19] MEDS: VITAMIN B COMPLEX TAB PO SCH (08:02)
[2021-04-19] MEDS: POLYETHYLENE (MIRALAX) 17 GM PACK PO SCH ×3 (08:03→21:08)
[2021-04-19 08:37] LABS: Basophils # (auto) 0.04 K/uL (0-0.2); Basophils % (auto) 0.9 %; Eosinophils # (auto) 0.16 K/uL (0-0.5); Eosinophils % (auto) 3.5 %; Hematocrit (blood only) 33.4 % (37-47); Hemoglobin 10.8 g/dL (12.0-16.0); Immature Granulocytes # (auto) 0.01 K/uL (0.00-0.02); Immature Granulocytes % (auto) 0.2 %; Lymphocytes # (auto) 1.05 K/uL (1.2-3.4); Lymphocytes % (auto) 23.3 %; Mean Corpuscular Hemoglobin 29.7 pg (25-34); Mean Corpuscular Hgb Conc 32.3 g/dL (32-36); Mean Corpuscular Volume 91.8 fL (80-100); Mean Platelet Volume 10.4 fL (7.4-10.4); Monocytes # (auto) 0.44 K/uL (0.11-0.59); Monocytes % (auto) 9.8 %; Neutrophils # (auto) 2.81 K/uL (1.4-6.5); Neutrophils % (auto) 62.3 %; Platelet Count 311 K/uL (130-400); RDW Coefficient of Variation 16.3 % (11.5-14.5); RDW Standard Deviation 54.7 fL (36.4-46.3); Red Blood Count 3.64 M/uL (4.2-5.4); White Blood Count 4.51 K/uL (4.8-10.8)
--- NOTE | 2021-04-19 08:55 | Electrocardiogram Report ---
Test Reason : Blood Pressure : / mmHG Vent. Rate : 068 BPM Atrial Rate : 068 BPM P-R Int : 160 ms QRS Dur : 100 ms QT Int : 444 ms P-R-T Axes : 073 052 067 degrees QTc Int : 472 ms Poor data quality, interpretation may be adversely affected Normal sinus rhythm Normal ECG When compared with ECG of 16-APR-2021 12:33, No significant change was found Confirmed by Jayy Jaimes ([id number]) on 04/19/2021 8:55:11 AM Referred By: REFERRED SELF Confirmed By:Jayy Jaimes
[2021-04-19] MEDS ORDERED: FUROSEMIDE 40 MG TAB PO SCH (09:00)
[2021-04-19 09:05] LABS: BUN Creatinine Ratio 12.6 (10-20); Calcium 8.2 mg/dl (8.5-10.1); Creatinine Clr Calc Pharmacy 54.8 ml/min; Est GFR (African American) 61.6 ml/min; Est GFR (Non-African American) 53.1 ml/min; Potassium 3.8 mmol/L (3.5-5.1)
--- NOTE | 2021-04-19 10:44 | Hospitalist Progress Note ---
Date of Service April 19, 2021 Assessment & Plan (1) Symptomatic anemia: Plan: s/p 2 units packed RBCs. Hemoglobin now 10.4. Will repeat level in AM. Iron studies suggestive iron supplementation can be reduced to help with constipation and will reduce to QOD dosing on disharge. (2) Acute blood loss anemia: Plan: FOB positive. Discussed with Veronica You at bedside and planning on colonoscopy tomorrow. (3) Sleep apnea: Plan: Intolerant to CPAP current due to her current eye problem (4) Atrial fibrillation status post cardioversion: Plan: Holding anticoagulation with Eliquis secondary to GI bleed as above Monitor on telemetry - currently in NSR Continue rhythm control with amiodarone (5) Fatigue: Plan: Suspect anemia contributing given some subjective improvement overnight. Timeline possible also fits with memantine use and could consider holding this if transfusions do not help her symptoms - additional symptoms of coughing, dry mouth and dysphonia. Additionally stress likely contributing with her leaving her TSH WNL (6) CAD (coronary artery disease): Plan: NSTEMI in July 2020 - medically managed Symptoms not suggestive of angina Suspect she can stop her aspirin and continue Eliquis alone in setting of acute on chronic GI bleed on discharge but will discuss with cardiology prior to discharge - both on hold currently pending colonoscopy Continue rosuvastatin (7) Chronic diastolic CHF (congestive heart failure): Plan: Appears to be euvolemic currently Currently appears euvolemic. Hold Lasix tomorrow prior to colonoscopy. (8) CD (celiac disease): Plan: Gluten free diet Does not follow gluten free diet - consider outpatient anti-TTG IgA testing to see if this is effecting her weight loss however given constipation rather than diarrhea is her current problem will defer this to GI (9) Chronic cough: Plan: SLT assessment - slippery diet recommended Plan: VTE Prophylaxis - Eliquis on hold due to possibility of acute blood loss on CT, need for colonoscopy Diet - clear liquid, gluten free Disposition - admit to med/tele Admission and Anticipated Discharge Date Admission Date: April 18, 2021 Subjective Mild improvement in fatigue and dizziness per patient although she hasn't been up and moving around yet today. No significant bowel movement with MiraLAX. Still having left sided abdominal pain. No nausea or vomiting. Tolerating clear liquid diet. Review of Systems Review of Systems: All systems reviewed & are unremarkable except as noted in HPI & below Physical Exam Constitutional: well developed; + not well nourished and no acute distress Eyes: PERRL, conjunctivae normal, anicteric sclerae ENMT: Mouth: + dry oral mucous membranes Neck: trachea midline, no thyromegaly Respiratory: normal respiratory effort, lungs clear to auscultation Cardiovascular: Rate/Rhythm: regular rate and regular rhythm Heart Sounds: no murmur Extremities: normal capillary refill and + pedal edema (trace ankle b/l equal); no calf tenderness Gastrointestinal (Abdomen): Inspection/Auscultation: abdomen normal to inspection and normal bowel sounds; abdomen not distended Percussion/Palpation: + abdomen tender (left sided) and abdomen soft; no guarding and abdomen not rigid Skin: no rashes, warm and dry Neurologic: moves all extremities and awake; no focal motor deficits (no lateralizing deficit) and not confused Psychiatric: A+Ox3, euthymic affect Results & Data Results & Data ([facility]) Vital Signs (Past 12 Hours) Vital Signs Temp Pulse Pulse Resp BP BP Pulse Ox 04/19/21 07:41 36.6 C 52 L 18 139/75 97 04/19/21 07:14 54 L 04/19/21 02:30 36.6 C 55 L 16 130/65 96 04/19/21 01:30 36.0 C L 55 L 16 113/50 L 96 04/19/21 00:30 36.6 C 55 L 16 107/55 L 96 04/19/21 00:00 36.5 C 55 L 16 114/62 96 04/18/21 23:45 36.2 C L 55 L 16 104/58 L 96 04/18/21 23:25 36.5 C 55 L 18 109/55 L 96 PG Care Time/CCT Total # of Minutes Spent Total Time Spent with Patient: Total time spent is greater than 50% in coordination of care (as documented) at patient's floor/unit and/or counseling patient: Coding Level of Care Code 43744 Subseq Hosp Care Lvl 2 Diagnoses Symptomatic anemia D64.9 Acute blood loss anemia D62 Sleep apnea G47.30 Atrial fibrillation status post cardioversion I48.91 Fatigue R53.83 Fatigue type: unspecified CAD (coronary artery disease) I25.10 Chronic diastolic CHF (congestive heart failure) I50.32 CD (celiac disease) K90.0 Chronic cough R05.3 (1) Fatigue Fatigue type: unspecified Qualified Code(s): R53.83 - Other fatigue
--- NOTE | 2021-04-19 11:01 | Gastrointestinal Consultation ---
Date of Consultation April 19, 2021 Assessment & Plan (1) Symptomatic anemia: (2) Acute blood loss anemia: (3) Abnormal CT scan, colon: Pt. is a 75 y.o. male with a history of heme positive stools and acute blood loss anemia on chronic anticoagulation admitted with acute blood loss anemia, GIB and weakness and CT imaging suggestive of possible cecal bleed. * Clear liquid diet today. * GoLytely bowel preparation this evening. * Colonoscopy with Dr. Olivas tomorrow for further evaluation. * Further recommendations will be made pending results of testing. Thank you for allowing us to participating in the care of this patient. If you have any questions or concerns, please do not hesitate to contact us. Supervising Physician Co-Signing Physician Notes Agree with JO ANN Gomez as above Abd: Soft, NT, ND, +BS Continue current therapy and supportive care Bowel prep tonight, NPO afterwards, Colonoscopy on 04/20/2021 History of Present Illness Reason for Consultation: Abnormal CT scan Requesting Physician: Dr. Coffey Attending Physician: Jacobo Coffey MD History of Present Illness Ximena Maxwell is a very pleasant 75 year-old female with a history of acute blood loss anemia and heme positive stools admitted due to progressive weakness and melena. She reports her stools are very dark. Has been taking oral iron supplementation. She did have an unremarkable colonoscopy in July of 2020 and negative EGD during her most recent hospital admission at the end of March. She was being arranged for an outpatient VCE. She has had a slow decline of H&H since that time. She received one unit of PRBCs and H&H this morning is noted to be 10.8/33.4. CT with IV enhancement suggestive of active cecal bleed. She has been kept on clear liquids and is receiving MiraLAX by primary team due to constipation. Allergies Allergy/AdvReac Type Severity Reaction Status Date / Time gluten Allergy Intermediate Celiac Verified 04/18/21 11:28 disease latex Allergy Mild Rash Verified 04/18/21 11:28 amoxicillin AdvReac Intermediate Yeast Verified 04/18/21 11:28 infection cefdinir AdvReac Intermediate nausea Verified 04/18/21 11:28 Cephalosporins AdvReac Intermediate Yeast Verified 04/18/21 11:28 infection clavulanic acid AdvReac Intermediate Yeast Verified 04/18/21 11:28 infection prednisone AdvReac Intermediate Anxiety Verified 04/18/21 11:28 Home Medications Medication Instructions Recorded Confirmed Type docusate sodium 100 mg capsule 300 mg PO QAM 04/15/18 04/18/21 History vitamin B complex 1 tab PO QAM 04/15/18 04/18/21 History calcium carbonate 600 mg calcium 1,200 mg PO QAM 06/08/19 04/18/21 History (1,500 mg) tablet (Calcium) cholecalciferol (vitamin D3) 25 1,000 unit PO QAM 06/08/19 04/18/21 History mcg (1,000 unit) capsule (Vitamin D3) acetaminophen 325 mg tablet 650 mg PO Q4H PRN #30 tab 09/22/19 04/18/21 Rx coffee extract 50 mg-phosphatidyl 1 tab PO QAM tab 06/04/20 04/18/21 History serine 50 mg chewable tablet (Neuriva Original) aspirin 81 mg tablet,delayed 81 mg PO QAM #30 tab 07/29/20 04/18/21 Rx release apixaban 5 mg tablet (Eliquis) 5 mg PO BID #180 tab 10/08/20 04/18/21 Rx amiodarone 200 mg tablet 200 mg PO BID #60 tab 02/05/21 04/18/21 Rx estradiol 0.075 mg/24 hr weekly 1 patch TOPICAL YARBROUGH #4 ea 02/10/21 04/18/21 Rx transdermal patch furosemide 40 mg tablet (Lasix) 40 mg PO QAM PRN tab 02/22/21 04/18/21 History ferrous sulfate 325 mg (65 mg 325 mg PO QAM 03/19/21 04/18/21 History iron) tablet memantine 10 mg tablet (Namenda) 10 mg PO BID 03/19/21 04/18/21 History pantoprazole 40 mg tablet,delayed 40 mg PO QAM 03/19/21 04/18/21 History release rosuvastatin 40 mg tablet (Crestor) 40 mg PO HS 03/19/21 04/18/21 History nitroglycerin 0.4 mg sublingual 0.4 mg SUBLINGUAL Q5M PRN 04/18/21 04/18/21 History tablet (Nitrostat) tobramycin 0.3 %-dexamethasone 0.1 1 drp OPR BID 04/18/21 04/18/21 History % eye drops,suspension Patient History Medical History Acute blood loss anemia (ABLA) Anemia Atrial fibrillation Dx'ed 2018 Follows w/ Dr. Delacruz, on Eliquis CAD (coronary artery disease) Medically managed by cardiology NSTEMI 07/27/20- cath demonstrated small branch vessel disease involving small OM to, not amenable to intervention. CD (celiac disease) "Does not" follow gluten-free diet Degenerative disc disease Diastolic CHF Diverticulitis 2013 GI bleed reason for Endoscopy History of paroxysmal supraventricular tachycardia with atrial tachycardia Low back pain with sciatica Non-ST elevation [place] (NSTEMI) 07/27/20 Ocular migraine Sleep apnea CPAP Surgical History History of arthroscopy of right shoulder RCR History of cardiac cath 2015, 07/28/20 ([place]) > no stents History of cardioversion x2, most recent 04/2019 History of carpal tunnel release R/L History of cataract surgery History of cholecystectomy History of colonoscopy History of esophagogastroduodenoscopy (EGD) History of foot surgery R/L feet "to straighten toes" History of fracture of left shoulder Plate + screws History of hysterectomy JOANNA + BSO History of incision and drainage Right foot History of tonsillectomy History of total knee replacement Left x2, right x1 S/P transesophageal echocardiogram (JOHANA) Status post placement of implantable loop recorder Implanted 12/2019 Family History Mother Family hx of colon cancer Colorectal cancer Brother Prostate cancer Family history of diabetes mellitus Father Dissecting aortic aneurysm Myocardial infarction Grandmother (Maternal) Stroke Other No family history of adverse response to anesthesia Denies family history of Ovarian cancer Breast cancer Social History Smoking Status: Never smoker Tobacco Type: Cigarettes Age Started Using Tobacco: 19; Age Quit Using Tobacco: 27; packs per day: 0.25; Years Smoked: 8; Second Hand Exposure: No; Hx Alcohol Use: No Hx Substance Use: No Preferred Language: Armenian Communication Ability: Effective Acid Patroller Required: No Beliefs That Will Affect Care: None marital status: Current Living Situation: Alone Current Living Situation Comment: just left her 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; 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[employer]; 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 Feels Safe at Home: Yes Safety Concerns: Feels Safe At This Time Childhood Exposure to Second-Hand Smoke: No Dental Care, Regularly: Yes Seatbelt Use: always Sunscreen Use: Yes Assistive Devices: None Review of Systems Constitutional: as per Subjective / HPI Respiratory: no cough and no dyspnea Cardiovascular: no chest pain and no palpitations Gastrointestinal: as per Subjective / HPI Physical Exam Constitutional: WD/WN, vitals as above Eyes: + anicteric sclerae and EOM intact bilaterally Neck: normal visual inspection Respiratory: normal respiratory effort, lungs clear to auscultation Cardiovascular: Rate/Rhythm: regular rate and regular rhythm Gastrointestinal (Abdomen): Inspection/Auscultation: normal bowel sounds Percussion/Palpation: abdomen soft; abdomen nontender, no guarding and abdomen not rigid Psychiatric: A+Ox3, euthymic affect Results & Data ([facility]) Vital Signs (Past 12 Hours) Vital Signs Temp Pulse Pulse Resp BP BP Pulse Ox 04/19/21 07:41 36.6 C 52 L 18 139/75 97 04/19/21 07:14 54 L 04/19/21 02:30 36.6 C 55 L 16 130/65 96 04/19/21 01:30 36.0 C L 55 L 16 113/50 L 96 04/19/21 00:30 36.6 C 55 L 16 107/55 L 96 04/19/21 00:00 36.5 C 55 L 16 114/62 96 04/18/21 23:45 36.2 C L 55 L 16 104/58 L 96 04/18/21 23:25 36.5 C 55 L 18 109/55 L 96 Diagnostic Findings Laboratory Results WBC 4.51 K/uL (4.8-10.8) L 04/19/21 08:25 RBC 3.64 M/uL (4.2-5.4) L 04/19/21 08:25 Hgb 10.8 g/dL (12.0-16.0) L 04/19/21 08:25 Hct 33.4 % (37-47) L 04/19/21 08:25 MCV 91.8 fL (80-100) 04/19/21 08:25 MCH 29.7 pg (25-34) 04/19/21 08:25 MCHC 32.3 g/dL (32-36) 04/19/21 08:25 RDW Std Deviation 54.7 fL (36.4-46.3) H 04/19/21 08:25 RDW Coeff of Malinda 16.3 % (11.5-14.5) H 04/19/21 08:25 Plt Count 311 K/uL (130-400) 04/19/21 08:25 MPV 10.4 fL (7.4-10.4) 04/19/21 08:25 Immature Gran % (Auto) 0.2 % 04/19/21 08:25 Neut % (Auto) 62.3 % 04/19/21 08:25 Lymph % (Auto) 23.3 % 04/19/21 08:25 [place] % (Auto) 9.8 % 04/19/21 08:25 Eos % (Auto) 3.5 % 04/19/21 08:25 Baso % (Auto) 0.9 % 04/19/21 08:25 Neut # (Auto) 2.81 K/uL (1.4-6.5) 04/19/21 08:25 Lymph # (Auto) 1.05 K/uL (1.2-3.4) L 04/19/21 08:25 [place] # (Auto) 0.44 K/uL (0.11-0.59) 04/19/21 08:25 Eos # (Auto) 0.16 K/uL (0-0.5) 04/19/21 08:25 Baso # (Auto) 0.04 K/uL (0-0.2) 04/19/21 08:25 Immature Gran # (Auto) 0.01 K/uL (0.00-0.02) 04/19/21 08:25 Sodium 135 mmol/L (136-145) L 04/19/21 08:25 Potassium 3.8 mmol/L (3.5-5.1) 04/19/21 08:25 Chloride 101 mmol/L (98-107) 04/19/21 08:25 Carbon Dioxide 30 mmol/L (21-32) 04/19/21 08:25 Anion Gap 4 (3-11) 04/19/21 08:25 BUN 13 mg/dl (6-23) 04/19/21 08:25 Creatinine 1.03 mg/dl (0.6-1.2) 04/19/21 08:25 Est Cr Clr Drug Dosing 54.8 ml/min 04/19/21 08:25 Est GFR ( Amer) 61.6 ml/min 04/19/21 08:25 Est GFR (Non-Af Amer) 53.1 ml/min 04/19/21 08:25 BUN/Creatinine Ratio 12.6 (10-20) 04/19/21 08:25 Glucose 129 mg/dl (70-99(Fasting)) H 04/19/21 08:25 Calcium 8.2 mg/dl (8.5-10.1) L 04/19/21 08:25 Iron 84 mcg/dl (35-150) 04/18/21 13:58 TIBC 340 mcg/dl (250-450) 04/18/21 13:58 Unsaturated IBC 256 mcg/dl (155-355) 04/18/21 13:58 Transferrin % Sat 25 % (15-50) 04/18/21 13:58 Ferritin 11.5 ng/ml (8-388) 04/18/21 13:58 Total Bilirubin 0.4 mg/dl (0.2-1.0) 04/18/21 11:11 AST 22 U/L (13-39) 04/18/21 11:11 ALT 17 U/L (7-52) 04/18/21 11:11 Alkaline Phosphatase 69 U/L (34-104) 04/18/21 11:11 Total Protein 6.8 gm/dl (6.0-8.3) 04/18/21 11:11 Albumin 3.9 gm/dl (3.4-5.0) 04/18/21 11:11 Globulin 2.9 gm/dl (2.5-4.0) 04/18/21 11:11 Albumin/Globulin Ratio 1.3 (0.9-2) 04/18/21 11:11 TSH 1.447 uIu/ml (0.300-4.500) 04/18/21 11:34 Stool Occult Bld Scrn Positive (Negative) A 04/18/21 20:55 SARS-CoV-2, RNA, NAAT NEGATIVE (NEGATIVE) 04/18/21 13:40 Blood Type O Positive 04/18/21 11:33 Blood Type Recheck O Positive 04/18/21 13:58 Antibody Screen NEGATIVE 04/18/21 11:33 Crossmatch See Detail 04/18/21 11:33 Impressions Abdomen/Pelvis CT 04/18/21 11:21 CT abd pelvis IV con only CLINICAL HISTORY: abd pain generalized, gi bleed(upper) COMPARISON STUDY: 02/23/2021 CT DOSE: 533.82 mGy.cm TECHNIQUE: Standard CT of the Abdomen and Pelvis was performed with IV contrast. A dose lowering technique was utilized adhering to the principles of ALARA. Contrast Volume: Optiray 320, 93 ml. The patient did not receive oral contrast. FINDINGS: Lung base: The lung bases are clear. Abdominal cavity: There is no evidence for abdominal mass, adenopathy or ascites. Liver: There is homogeneous attenuation of the liver parenchyma. There is no evidence for enhancing mass lesion. Spleen: There is homogeneous attenuation of the splenic parenchyma. There is no enhancing mass lesion. Pancreas: There is homogeneous attenuation of the pancreatic parenchyma. There is no evidence for mass lesion or peripancreatic fluid collection. Gall Bladder: Surgical clips are present previous cholecystectomy. Adrenal glands: The adrenal glands are normal in size and attenuation. There is no evidence for enhancing mass lesion. Kidneys: There is homogeneous attenuation of the renal parenchyma bilaterally. There is no evidence for renal calculus or hydronephrosis. There is no evidence for enhancing mass. Bowel: There are patchy foci of increased attenuation within the cecum which is highly suspicious for the presence of active bleeding. Radionuclide red blood cell bleeding study would be the study of choice for further evaluation. The bowel loops are otherwise normally placed within the abdomen and pelvis without evidence for dilatation or obstruction. There is no evidence for mass lesion. There is extensive sigmoid diverticulosis without evidence for diverticulitis. There is also mild to moderate fecal stasis without impaction or obstruction. There are no inflammatory changes present. There is no evidence for free air. Bladder: The bladder is within normal limits with no evidence for focal mass, calculus or diverticulum. : There is no evidence for pelvic mass or adenopathy. There is no evidence for pelvic ascites. Vasculature: There is no evidence for aneurysmal dilatation of the abdominal aorta. Osseous structures: There is no acute osseous pathology. Degenerative changes are seen within the spine. IMPRESSION: 1. Ill-defined foci of increased attenuation within the cecum highly suspicious for the presence of active bleeding. Radionuclide red blood cell study is recommended for further evaluation. 2. Diverticulosis without evidence for diverticulitis. ACT 112: Negative or not required by law. Electronically signed by: Max Matthews M.D. 04/18/2021 12:39 PM Chest X-Ray 04/18/21 11:21 XR chest 1V portable CLINICAL HISTORY: weakness. Evaluate cardiopulmonary status. Nonsmoker for 40 years COMPARISON STUDY: 04/16/2021 TECHNIQUE: 1 view of the chest FINDINGS: Single frontal view of the chest demonstrates the cardiomediastinal silhouette to be within normal limits. A loop recorder is in place. The lungs are clear of alveolar opacities. There is no evidence for pleural effusion. There is no evidence for vascular congestion. There is no acute osseous pathology. IMPRESSION: No acute cardiopulmonary disease. ACT 112: Negative or not required by law. Electronically signed by: Max Matthews M.D. 04/18/2021 12:02 PM PG Care Time/CCT Total # of Minutes Spent Total Time Spent with Patient: Total time spent is greater than 50% in coordination of care (as documented) at patient's floor/unit and/or counseling patient: Coding Level of Care Code 62358 Initial Inpt Care Lvl 3 Diagnoses Symptomatic anemia D64.9 Acute blood loss anemia D62 Abnormal CT scan, colon R93.3
[2021-04-19] MEDS ORDERED: LAVAGE SOLUTION 4000ML PO SCH (16:00)
[2021-04-19] MEDS: ROSUVASTATIN CALCIUM 20 MG TAB PO SCH (21:08)
[2021-04-20 08:15] LABS: Basophils # (auto) 0.05 K/uL (0-0.2); Basophils % (auto) 0.8 %; Eosinophils # (auto) 0.19 K/uL (0-0.5); Eosinophils % (auto) 2.9 %; Hematocrit (blood only) 34.8 % (37-47); Hemoglobin 11.3 g/dL (12.0-16.0); Immature Granulocytes # (auto) 0.01 K/uL (0.00-0.02); Immature Granulocytes % (auto) 0.2 %; Lymphocytes # (auto) 2.15 K/uL (1.2-3.4); Mean Corpuscular Hemoglobin 29.4 pg (25-34); Mean Corpuscular Hgb Conc 32.5 g/dL (32-36); Mean Corpuscular Volume 90.4 fL (80-100); Mean Platelet Volume 10.5 fL (7.4-10.4); Monocytes # (auto) 0.82 K/uL (0.11-0.59); Monocytes % (auto) 12.6 %; Neutrophils % (auto) 50.5 %; Platelet Count 327 K/uL (130-400); RDW Coefficient of Variation 15.9 % (11.5-14.5); RDW Standard Deviation 52.5 fL (36.4-46.3); Red Blood Count 3.85 M/uL (4.2-5.4); White Blood Count 6.52 K/uL (4.8-10.8)
[2021-04-20 08:39] LABS: BUN Creatinine Ratio 7.2 (10-20); Calcium 8.7 mg/dl (8.5-10.1); Creatinine Clr Calc Pharmacy 59.2 ml/min; Est GFR (African American) 66.2 ml/min; Est GFR (Non-African American) 57.1 ml/min; Potassium 3.7 mmol/L (3.5-5.1)
[2021-04-20] MEDS: PANTOprazole 40 MG TAB PO SCH (09:11)
[2021-04-20] MEDS: TOBRAMYCIN/DEXAMETHASONE OPH SUSP 2.5 ML BTL OPR SCH (09:11)
[2021-04-20] MEDS: CALCIUM CARBONATE 1250MG TAB PO SCH (09:11)
[2021-04-20] MEDS: MEMANTINE HCL 10 MG TAB PO SCH (09:11)
[2021-04-20] MEDS: AMIODARONE 200 MG TAB PO SCH (09:11)
[2021-04-20] MEDS: CHOLECALCIFEROL 1,000 UNITS 25 MCG TAB PO SCH (09:11)
[2021-04-20] MEDS: VITAMIN B COMPLEX TAB PO SCH (09:11)
[2021-04-20] MEDS: DOCUSATE SODIUM 100 MG CAP PO SCH (09:11)
[2021-04-20] MEDS: POLYETHYLENE (MIRALAX) 17 GM PACK PO SCH ×2 (09:12→14:20)
--- NOTE | 2021-04-20 09:32 | History & Physical Bridge Note ---
Date of Service April 20, 2021 History & Physical Bridge Note I have examined the patient, reviewed the History & Physical and in the interval since the performance of the History & Physical I have noted the following changes of clinical significance: no changes noted. Patient completed bowel preparation. Reports liquid stool output at this time. Persistent left-sided abdominal discomfort. PE: A&O x 3. Lungs CTA bilaterally. RRR without M/R/G. Abdomen soft. Hyperactive bowel sounds. Tender LUQ/LLQ. A/P: Patient is a 75 y.o. female on chronic anticoagulation admitted with acute blood loss anemia and heme positive stool as well as CT suggestive of a cecal bleed. * NPO for now. * Proceed with colonoscopy by Dr. Olivas today. * Further recommendations pending results of testing. Supervising Physician Co-Signing Physician Notes Agree with JO ANN Gomez as above Abd: Soft, NT, ND, +BS Continue current therapy and supportive care Proceed with colonoscopy now
--- NOTE | 2021-04-20 12:08 | Anesthesiology Consultation ---
Date of Service April 20, 2021 Assessment & Plan Chart Review Chart Review: Acceptable Risk for Surgery and Patient NOT seen in Pre Admission Testing Consults Requested none ASA ASA4 Proposed Anesthesia Anesthesia Type: MAC History Surgery Operation Date: 04/20/21 17:15 Proposed Procedures p Colonoscopy Dr. Brendon Swenson Case, DO Height/Weight Height: 5 ft 9 in Weight: 87.9 kg Allergies Allergy/AdvReac Type Severity Reaction Status Date / Time gluten Allergy Intermediate Celiac Verified 04/18/21 11:28 disease latex Allergy Mild Rash Verified 04/18/21 11:28 amoxicillin AdvReac Intermediate Yeast Verified 04/18/21 11:28 infection cefdinir AdvReac Intermediate nausea Verified 04/18/21 11:28 Cephalosporins AdvReac Intermediate Yeast Verified 04/18/21 11:28 infection clavulanic acid AdvReac Intermediate Yeast Verified 04/18/21 11:28 infection prednisone AdvReac Intermediate Anxiety Verified 04/18/21 11:28 Medications Home Medications Medication Instructions Recorded Confirmed Last Taken docusate sodium 100 mg capsule 300 mg PO QAM 04/15/18 04/18/21 04/18/21 vitamin B complex 1 tab PO QAM 04/15/18 04/18/21 04/18/21 calcium carbonate 600 mg calcium 1,200 mg PO QAM 06/08/19 04/18/21 04/18/21 (1,500 mg) tablet (Calcium) cholecalciferol (vitamin D3) 25 1,000 unit PO QAM 06/08/19 04/18/21 04/18/21 mcg (1,000 unit) capsule (Vitamin D3) acetaminophen 325 mg tablet 650 mg PO Q4H PRN #30 tab 09/22/19 04/18/21 Unknown coffee extract 50 mg-phosphatidyl 1 tab PO QAM tab 06/04/20 04/18/21 04/18/21 serine 50 mg chewable tablet (Neuriva Original) aspirin 81 mg tablet,delayed 81 mg PO QAM #30 tab 07/29/20 04/18/21 04/18/21 release apixaban 5 mg tablet (Eliquis) 5 mg PO BID #180 tab 10/08/20 04/18/21 04/18/21 amiodarone 200 mg tablet 200 mg PO BID #60 tab 02/05/21 04/18/21 04/18/21 estradiol 0.075 mg/24 hr weekly 1 patch TOPICAL YARBROUGH #4 ea 02/10/21 04/18/21 04/18/21 transdermal patch furosemide 40 mg tablet (Lasix) 40 mg PO QAM PRN tab 02/22/21 04/18/21 04/18/21 40 mg ferrous sulfate 325 mg (65 mg 325 mg PO QAM 03/19/21 04/18/21 04/18/21 iron) tablet memantine 10 mg tablet (Namenda) 10 mg PO BID 03/19/21 04/18/21 04/18/21 pantoprazole 40 mg tablet,delayed 40 mg PO QAM 03/19/21 04/18/21 04/18/21 release rosuvastatin 40 mg tablet (Crestor) 40 mg PO HS 03/19/21 04/18/21 04/17/21 nitroglycerin 0.4 mg sublingual 0.4 mg SUBLINGUAL Q5M PRN 04/18/21 04/18/21 Unknown tablet (Nitrostat) tobramycin 0.3 %-dexamethasone 0.1 1 drp OPR BID 04/18/21 04/18/21 Unknown % eye drops,suspension Active Medications Generic Name Dose Route Start Last Admin Trade Name Freq PRN Reason Stop Dose Admin Acetaminophen 650 mg 04/18/21 15:51 04/19/21 08:01 Acetaminophen 325 Mg Tab PO 05/18/21 15:50 650 mg Q4H PRN Administration Pain or Fever Amiodarone HCl 200 mg 04/18/21 21:00 04/20/21 09:11 Amiodarone 200 Mg Tab PO 05/18/21 20:59 200 mg BID MERLIN Administration Calcium Carbonate 1,250 mg 04/19/21 09:00 04/20/21 09:11 Calcium Carbonate 1250mg Tab PO 05/19/21 08:59 1,250 mg QAM MERLIN Administration Docusate Sodium 300 mg 04/19/21 09:00 04/20/21 09:11 Docusate Sodium 100 Mg Cap PO 05/19/21 08:59 300 mg QAM MERLIN Administration Furosemide 40 mg 04/19/21 09:00 04/19/21 08:02 Furosemide 40 Mg Tab PO 05/19/21 08:59 40 mg QAM MERLIN Administration Memantine 10 mg 04/18/21 21:00 04/20/21 09:11 Memantine Hcl 10 Mg Tab PO 05/18/21 20:59 10 mg BID MERLIN Administration Pantoprazole Sodium 40 mg 04/19/21 09:00 04/20/21 09:11 Pantoprazole 40 Mg Tab PO 05/19/21 08:59 40 mg QAM MERLIN Administration Polyethylene Glycol 17 gm 04/18/21 21:00 04/20/21 09:12 Polyethylene (Miralax) 17 Gm Pack PO 05/18/21 20:59 Not Given TID MERLIN Polyethylene Glycol/Electrolytes 16 dose 04/19/21 16:00 04/19/21 16:48 Lavage Solution 4000ml PO 05/04/21 16:01 16 dose TODAY@1600 MERLIN Administration Rosuvastatin Calcium 40 mg 04/18/21 21:00 04/19/21 21:08 Rosuvastatin Calcium 20 Mg Tab PO 05/18/21 20:59 40 mg HS MERLIN Administration Tobramycin/Dexamethasone 1 drops 04/18/21 21:00 04/20/21 09:11 Tobramycin/Dexamethasone Oph Susp 2.5 Ml Btl OPR 05/18/21 20:59 1 drops BID MERLIN Administration Vitamin B Complex 1 tab 04/19/21 09:00 04/20/21 09:11 Vitamin B Complex Tab PO 05/19/21 08:59 1 tab QAM MERLIN Administration Vitamin D 1,000 units 04/19/21 09:00 04/20/21 09:11 Cholecalciferol 1,000 Units 25 Mcg Tab PO 05/19/21 08:59 1,000 units QAM MERLIN Administration NPO Date Last Intake of Fluids: 04/19/21 Time Last Intake of Fluids: 23:30 Date Last Intake of Solids: 04/18/21 Time Last Intake of Solids: 08:00 Past Medical History Medical History Acute blood loss anemia (ABLA) Anemia Atrial fibrillation Dx'ed 2019 Follows w/ Dr. Delacruz, on Eliquis CAD (coronary artery disease) Medically managed by cardiology NSTEMI 07/27/20- cath demonstrated small branch vessel disease involving small OM to, not amenable to intervention. CD (celiac disease) "Does not" follow gluten-free diet Degenerative disc disease Diastolic CHF Diverticulitis 2013 GI bleed reason for Endoscopy History of paroxysmal supraventricular tachycardia with atrial tachycardia Low back pain with sciatica Non-ST elevation [place] (NSTEMI) 07/27/20 Ocular migraine Sleep apnea CPAP Exercise / Class Metabolic Activity III < 4 Walking/Shop/Light housework Past Family History Family History Mother Family hx of colon cancer Colorectal cancer Brother Prostate cancer Family history of diabetes mellitus Father Dissecting aortic aneurysm Myocardial infarction Grandmother (Maternal) Stroke Other No family history of adverse response to anesthesia Denies family history of Ovarian cancer Breast cancer Past Surgical History Surgical History History of arthroscopy of right shoulder RCR History of cardiac cath 2015, 07/28/20 ([place]) > no stents History of cardioversion x2, most recent 04/2019 History of carpal tunnel release R/L History of cataract surgery History of cholecystectomy History of colonoscopy History of esophagogastroduodenoscopy (EGD) History of foot surgery R/L feet "to straighten toes" History of fracture of left shoulder Plate + screws History of hysterectomy JOANNA + BSO History of incision and drainage Right foot History of tonsillectomy History of total knee replacement Left x2, right x1 S/P transesophageal echocardiogram (JOHANA) Status post placement of implantable loop recorder Implanted 12/2019 Past Anesthesia History No Hx of Anesthesia Complications and No Family Hx of Anesthesia Complications History of PONV No Hx of PONV and No Hx of Motion Sickness Social History Smoking Status: Former smoker tobacco type: cigarettes Hx Alcohol Use: No Alcohol type: wine alcohol intake frequency: holidays/special occasions only Hx Substance Use: No substance use type: does not use Physical Exam Vital Signs Last Vital Signs Temp 36.7 C 04/20/21 11:58 Pulse 62 04/20/21 11:58 Resp 16 04/20/21 11:58 BP 134/57 L 04/20/21 11:58 Pulse Ox 95 04/20/21 11:58 Testing Laboratory Results 04/20/21 07:56 04/20/21 07:56 Blood Type O Positive 04/18/21 11:33 Antibody Screen NEGATIVE 04/18/21 11:33 Electrocardiogram Date: 04/18/21 Findings: + NSR @ (at 68) Chest X-Ray Date: 04/18/21 Findings: + NAD Echocardiogram Date: 07/28/20 EF: 60% LV Function: normal RWMA: + none Other Findings: + LVH (mild) Valvular Disease: + MR (mild) Cardiac Catheterization Date: 07/28/20 Findings: + RCA (NL), + LMA (NL) and + LCX (OM2 w/ severe prox. dis.) Intervention: + none
[2021-04-20] MEDS ORDERED: ePHEDrine sulfate 50 MG/ML AMP IV PRN (12:19)
[2021-04-20] MEDS ORDERED: ATROPINE SULFATE 0.1 MG/ML 10ML SYR IV PRN (12:19)
[2021-04-20] MEDS ORDERED: LIDOCAINE 2% 2 ML VIAL/AMP(20MG/ML) INFIL ONE (13:20)
[2021-04-20] MEDS ORDERED: PROPOFOL IV EMULSION 10 MG/ML 20 ML VIAL IV ONE (13:20)
[2021-04-20] MEDS ORDERED: ePHEDrine sulfate 50 MG/ML AMP ONE (14:10)
--- NOTE | 2021-04-20 14:12 | Anesthesiology Progress Note ---
Date of Service April 20, 2021 Anesthesia Post Procedure Vital Signs Vital Signs: Temp Pulse Pulse Resp BP BP Pulse Ox 04/20/21 11:58 36.7 C 62 16 134/57 L 95 04/20/21 07:24 36.8 C 63 18 144/75 H 97 04/20/21 06:59 56 L 04/20/21 03:41 36.5 C 73 18 124/67 97 04/19/21 22:29 36.4 C L 58 L 17 145/58 H 94 04/19/21 22:12 54 L 04/19/21 18:28 36.6 C 58 L 18 156/82 H 94 04/19/21 16:28 51 L 04/19/21 15:51 04/19/21 15:19 36.7 C 51 L 18 125/68 98 Pulse Ox 04/20/21 11:58 04/20/21 07:24 04/20/21 06:59 04/20/21 03:41 04/19/21 22:29 04/19/21 22:12 04/19/21 18:28 04/19/21 16:28 04/19/21 15:51 95 04/19/21 15:19 Pain Intensity Abdomen: Pain Intensity: 3 Bilateral Head: Pain Intensity: 8 Transfer of Care Handoff Completed per policy Notes Mental Status: alert / awake / arousable Patient Amnestic to Procedure: Yes Nausea / Vomiting: adequately controlled Pain: adequately controlled Airway Patency, RR, SpO2: stable & adequate BP & HR: stable & adequate Hydration State: stable & adequate Anesthetic Complications: no major complications apparent
--- NOTE | 2021-04-20 14:12 | GI REPORT ---
Patient Name: Ximena Maxwell Procedure Date: 04/20/2021 12:59 PM Date of : 1945 Admit Type: Inpatient Age: 75 Gender: Female Attending MD: Shaun Olivas DO Procedure: Colonoscopy Providers: Shaun Olivas DO Referring MD: Jacobo Coffey Md Indications: Iron deficiency anemia, Abnormal CT of the GI tract Medicines: Monitored Anesthesia Care Complications: No immediate complications. Estimated Blood Loss: Estimated blood loss: none. Procedure: Pre-Anesthesia Assessment: - Prior to the procedure, a History and Physical was performed, and patient medications and allergies were reviewed. The patient's tolerance of previous anesthesia was also reviewed. The risks and benefits of the procedure and the sedation options and risks were discussed with the patient. All questions were answered, and informed consent was obtained. Prior Anticoagulants: The patient last took Eliquis (apixaban) 2 days prior to the procedure. ASA Grade Assessment: IV - A patient with severe systemic disease that is a constant threat to life. After reviewing the risks and benefits, the patient was deemed in satisfactory condition to undergo the procedure. After I obtained informed consent, the scope was passed under direct vision. Throughout the procedure, the patient's blood pressure, pulse, and oxygen saturations were monitored continuously. The Colonoscope was introduced through the anus and advanced to the terminal ileum. The colonoscopy was performed with moderate difficulty due to poor bowel prep and a redundant colon. The patient tolerated the procedure well. The quality of the bowel preparation was poor. The ileocecal valve and the appendiceal orifice were photographed. Findings: The perianal and digital rectal examinations were normal. Multiple small-mouthed diverticula were found in the sigmoid colon. Non-bleeding internal hemorrhoids were found. The hemorrhoids were small. A large amount of semi-liquid stool was found in the entire colon. Lavage of the area was performed using copious amounts, resulting in incomplete clearance with fair visualization. Of note, there was no evidence of active or recent bleeding from the rectum to the cecum. Impression: - Preparation of the colon was poor. - Diverticulosis in the sigmoid colon. - Non-bleeding internal hemorrhoids. - Stool in the entire examined colon. - No specimens collected. Recommendation: - Return patient to [facility] for ongoing care. - Advance diet as tolerated. - Continue present medications. Shaun WalkerFranki Case, DO 04/20/2021 2:12:03 PM This report has been signed electronically. Note Initiated On: 04/20/2021 12:59 PM Number of Addenda: 0 I attest to the content of the Intraoperative Record and orders documented therein, exceptions below {[id number]}
--- NOTE | 2021-04-20 17:38 | Discharge Summary ---
Date of Service April 20, 2021 Admission HPI Per Admitting Provider Ximena Maxwell is a 75 year old female who presents to the ER with fatigue, dizziness and lightheadedness and generalized weakness. She reports her symptoms have been ongoing but progressively getting worse since her last EGD in March. She was recently in the ER 2 days ago but returns today after feeling dizzy from straining while on the toilet with new left sided abdominal pain. She denies any nausea or vomiting. She has had dark stool constantly over the last year which has not recently changed in color. No bright red blood in stool. She also reports increased stress recently with her going through a possible divorce with her after he was admitted to a behavioral institution. She also reports coughing and dysphonia since her last EGD in March. In the ER CT was concerning for an active bleed. Hemoglobin 8.4 from 8.6 2 days previously. Her daughter at bedside is concerned she appears to have declined a lot over the last 6 months. Principal Diagnosis Symptomatic anemia, acute gastrointestinal blood loss Discharge Exam Constitutional well developed; + not well nourished and no acute distress Eyes PERRL, conjunctivae normal, anicteric sclerae ENMT Mouth: oral mucous membranes not dry Neck trachea midline, no thyromegaly Respiratory normal respiratory effort, lungs clear to auscultation Cardiovascular Rate/Rhythm: regular rate and regular rhythm Heart Sounds: no murmur Extremities: normal capillary refill and + pedal edema (trace ankle b/l equal); no calf tenderness Gastrointestinal (Abdomen) Inspection/Auscultation: abdomen normal to inspection and normal bowel sounds; abdomen not distended Percussion/Palpation: abdomen soft; abdomen nontender, no guarding and abdomen not rigid Skin no rashes, warm and dry Neurologic moves all extremities and awake; no focal motor deficits (no lateralizing deficit) and not confused Psychiatric A+Ox3, euthymic affect Discharge Data Allergies Allergy/AdvReac Type Severity Reaction Status Date / Time gluten Allergy Intermediate Celiac Verified 04/23/21 10:54 disease latex Allergy Mild Rash Verified 04/23/21 10:54 amoxicillin AdvReac Intermediate Yeast Verified 04/23/21 10:54 infection cefdinir AdvReac Intermediate nausea Verified 04/23/21 10:54 Cephalosporins AdvReac Intermediate Yeast Verified 04/23/21 10:54 infection clavulanic acid AdvReac Intermediate Yeast Verified 04/23/21 10:54 infection prednisone AdvReac Intermediate Anxiety Verified 04/23/21 10:54 Consultations 04/18/21 14:09 ED Decision to Admit Stat 04/18/21 15:51 Consult Gastroenterology Routine Procedures Performed Operation Date: 04/20/21 17:15 Actual Procedures p Colonoscopy - Shaun Swenson Case, DO Ordered Studies 04/18/21 11:21 CT abd pelvis IV con only Stat IMPRESSION: 1. Ill-defined foci of increased attenuation within the cecum highly suspicious for the presence of active bleeding. Radionuclide red blood cell study is recommended for further evaluation. 2. Diverticulosis without evidence for diverticulitis. Hospital Course (1) Symptomatic anemia: Ximena Maxwell is a 75 year old female admitted to [facility] from April 18 to 2021 due to dizziness and generalized fatigue. She was found to be anemic with a hemoglobin of 8.4. This was treated with 2 units red blood cell transfusion with hemoglobin 11.3 on discharge. Subsequent colonoscopy did not show any active bleeding despite concern on CT scan of such. However the preparation of the colon was poor likely due to constipation. Suspect reason for admission was constipation in the setting of relative anemia. She appears to be doing much better since admission and is medically stable for discharge at this time. Iron levels were within normal limites prior to blood transfusion and recommended reducing your iron supplementation to every other day as prescribed today to avoid future constipation. She should continue to take docusate daily and MiraLAX as needed up to 3 times a day to aim for a bowel movement at least every other day. For further work-up for anemia she will continue outpatient workup with video endoscopy as previously arranged and follow-up with hematology. Since no stents were placed during her MN in July 2020 recommended continuing Eliquis but discontinuing her aspirin at this time to reduce likelihood of recurrent anemia (this was discussed with her technical service specialist on discharge). Due to the chronic cough since your previous EGD in March you evaluated by speech and language therapy. Please see additional discharge instructions regarding recommendations. (2) Acute blood loss anemia: (3) Sleep apnea: (4) Atrial fibrillation status post cardioversion: (5) Fatigue: (6) CAD (coronary artery disease): (7) Chronic diastolic CHF (congestive heart failure): (8) CD (celiac disease): (9) Chronic cough: Total Time Total Time Spent Total Time Spent (In Minutes): 35 Discharge Plan Discharge Items Patient Disposition: Home - Self-Care Reason For Visit: SYMPTOMATIC ANEMIA Discharge Diagnosis: Symptomatic anemia, acute gastrointestinal blood loss Activity: Resume your previous activity Non-emergency contact: Primary Care Provider Call non-emergency contact if: you have any medication questions and your symptoms worsen Follow-up/Referrals: Sravan Figueroa MD [Primary Care Provider] - (Please schedule a follow up appointment with your primary care provider.) Diet: Regular Addtl Attending Provider Instructions: You are admitted to [facility] from April 18 to 2021 due to dizziness and generalized fatigue. He was found to be anemic with a hemoglobin of 8.4. This was treated with 2 units red blood cell transfusion. Subsequent colonoscopy did not show any active bleeding despite concern on CT scan of such. However the preparation of the colon was poor likely due to constipation. Suspect reason for admission was constipation in the setting of relative anemia. You appears to be doing much better since admission and is medically stable for discharge at this time. Iron levels prior to blood transfusion showed these were replaced and recommend reducing your iron supplementation to every other day as prescribed today to avoid future constipation. Continue to take docusate daily and MiraLAX as needed up to 3 times a day to aim for a bowel movement at least every other day. Further work-up for anemia please continue with your video endoscopy as previously arranged and follow-up with hematology. Since no stents were placed during your heart attack in July 2020 recommending continuing your Eliquis but discontinuing the aspirin at this time to reduce likelihood of recurrent anemia (this was discussed with your technical service specialist on discharge). Due to the chronic cough since your previous EGD in March you evaluated by speech and language therapy. Please see additional discharge instructions regarding recommendations. Kind regards, Dr. Jacobo Coffey Pending Studies at Discharge: No Stand-Alone Forms: My [facility] [employer], Smoking Cessation Medications and DC Order Prescriptions: New polyethylene glycol 3350 [Miralax] 17 gram powder in packet 17 g PO DAILY PRN (Reason: constipation) Qty: 30 RF: 0 Continued Eliquis 5 mg tablet 5 mg PO BID Qty: 180 RF: 3 amiodarone 200 mg tablet 200 mg PO BID Qty: 60 RF: 5 estradiol 0.075 mg/24 hr patch weekly 1 patch topical YARBROUGH Qty: 4 RF: 12 Neuriva Original 50-50 mg tablet,chewable 1 tab PO QAM RF: 0 furosemide [Lasix] 40 mg tablet 40 mg PO QAM PRN (Reason: Edema) RF: 0 calcium carbonate [Calcium 600] 600 mg calcium (1,500 mg) Tablet 1,200 mg PO QAM RF: 0 cholecalciferol (vitamin D3) [Vitamin D3] 25 mcg (1,000 unit) Capsule 1,000 unit PO QAM RF: 0 docusate sodium 100 mg Capsule 300 mg PO QAM RF: 0 vitamin B complex Tablet 1 tab PO QAM RF: 0 acetaminophen 325 mg Tablet 650 mg PO Q4H PRN (Reason: pain) Qty: 30 RF: 0 pantoprazole 40 mg tablet,delayed release (DR/EC) 40 mg PO QAM RF: 0 rosuvastatin [Crestor] 40 mg tablet 40 mg PO HS RF: 0 memantine [Namenda] 10 mg tablet 10 mg PO BID RF: 0 nitroglycerin [Nitrostat] 0.4 mg tablet, sublingual 0.4 mg sublingual Q5M PRN (Reason: chest pain) RF: 0 tobramycin-dexamethasone 0.3-0.1 % drops,suspension 1 drp OPR BID RF: 0 Changed ferrous sulfate 325 mg (65 mg iron) tablet 325 mg PO Q OTHER DAY Qty: 0 RF: 0 Discontinued aspirin 81 mg Tablet,Delayed Release (Dr/Ec) 81 mg PO QAM Qty: 30 RF: 0 Discharge Orders: Discharge Order (Routine); Ordered 04/20/21 Ordered By: Jacobo Coffey Admission Data Admit Date/Time: 04/19/21 18:32 Attending Provider: Jacobo Coffey Admit Provider: Jacobo Coffey Primary Care Provider: Sravan Figueroa Other Providers: Jacobo Coffey ; Shaun Olivas Other Interventions: Discharge Summary Assessment (RN) Last Done: 04/20/21 17:39 Coding Level of Care Code D/C DAY MANAGEMENT >30 MINS Diagnoses Symptomatic anemia D64.9 Acute blood loss anemia D62 Sleep apnea G47.30 Atrial fibrillation status post cardioversion I48.91 Fatigue R53.83 Fatigue type: unspecified CAD (coronary artery disease) I25.10 Chronic diastolic CHF (congestive heart failure) I50.32 CD (celiac disease) K90.0 Chronic cough R05.3
== END 2021-04-20 18:24 | disposition home or self-care (01) | DRG 378 ==
LOC: 2N 11:06 → ED 11:06 → 2N 15:08

== ENCOUNTER 2021-10-29 06:23 | Inpatient (IN) ==
[2021-10-29 06:55] LABS: Basophils # (auto) 0.04 K/uL (0-0.2); Basophils % (auto) 0.4 %; Eosinophils # (auto) 0.02 K/uL (0-0.50); Eosinophils % (auto) 0.2 %; Hematocrit (blood only) 33.9 % (34.1-44.9); Hemoglobin 11.9 g/dl (12.0-16.0); Immature Granulocytes # (auto) 0.03 K/uL (0.00-0.02); Immature Granulocytes % (auto) 0.3 %; Lymphocytes # (auto) 2.57 K/uL (1.2-3.4); Lymphocytes % (auto) 27.6 %; Mean Corpuscular Hemoglobin 31.7 pg (25.0-34.0); Mean Corpuscular Hgb Conc 35.1 g/dL (32.0-36.0); Mean Corpuscular Volume 90.4 fL (80.0-100.0); Mean Platelet Volume 11.3 fL (9.4-12.3); Monocytes # (auto) 0.66 K/uL (0.24-0.82); Monocytes % (auto) 7.1 %; Neutrophils # (auto) 5.98 K/uL (1.4-6.5); Neutrophils % (auto) 64.4 %; Platelet Count 225 K/uL (130-400); RDW Coefficient of Variation 13.3 % (11.5-14.5); RDW Standard Deviation 44.1 fL (36.4-46.3); Red Blood Count 3.75 M/uL (3.93-5.22)
[2021-10-29] MEDS ORDERED: ONDANSETRON INJ 2 MG/ML 2 ML VIAL IV STA (06:57)
[2021-10-29] MEDS ORDERED: LORazepam 2 MG/1 ML VIAL IV STA (07:05)
--- NOTE | 2021-10-29 07:05 | Emergency Department Note ---
History of Present Illness General Chief complaint: Vertigo Stated complaint: Fall, Vertigo Time Seen by Provider: 10/29/21 06:43 History of Present Illness Maximum Pain Intensity: 8 76-year-old female presents to the ED with a chief complaint of vertigo. The patient states that she awoke this morning with vertigo. She states that she had to go to the bathroom. She states that she had difficulty walking and hit her head on the door post. She did not fall. She is chronically on Eliquis for a history of atrial fibrillation. The patient states that she has dry heaves and her vertigo and dry heaves are worse with moving her head or moving her eyes. She denies any abdominal pains. No chest pains or shortness of breath. No focal weakness. No other complaints at this time. Home Medications Medication Instructions Recorded Confirmed Type docusate sodium 100 mg capsule 300 mg PO QAM 04/15/18 09/20/21 History vitamin B complex 1 tab PO QAM 04/15/18 09/20/21 History calcium carbonate 600 mg calcium 1,200 mg PO QAM 06/08/19 09/20/21 History (1,500 mg) tablet (Calcium) cholecalciferol (vitamin D3) 25 1,000 unit PO QAM 06/08/19 09/20/21 History mcg (1,000 unit) capsule (Vitamin D3) apixaban 5 mg tablet (Eliquis) 5 mg PO BID #180 tabs 10/08/20 09/20/21 Rx estradiol 0.075 mg/24 hr weekly 1 patch topical YARBROUGH #4 ea 02/10/21 09/20/21 Rx transdermal patch memantine 10 mg tablet (Namenda) 10 mg PO BID 03/19/21 09/20/21 History rosuvastatin 40 mg tablet (Crestor) 40 mg PO HS 03/19/21 09/20/21 History polyethylene glycol 3350 17 gram 17 g PO DAILY PRN constipation #30 04/20/21 09/20/21 Rx oral powder packet (Miralax) ea pantoprazole 40 mg tablet,delayed 40 mg PO QAM #90 tabs 06/30/21 09/20/21 Rx release rivastigmine tartrate 1.5 mg 1.5 mg PO BID #60 caps 07/23/21 09/20/21 Rx capsule amiodarone 200 mg tablet 200 mg PO BID #60 tabs 08/10/21 09/20/21 Rx furosemide 40 mg tablet (Lasix) 40 mg PO DAILY Edema #120 tabs 08/18/21 09/20/21 Rx buspirone 5 mg tablet 5 mg PO TID #90 tabs 09/03/21 09/20/21 Rx nitroglycerin 0.4 mg sublingual 0.4 mg sublingual Q5M PRN chest 09/25/21 Rx tablet (Nitrostat) pain #20 tabs Allergies Allergy/AdvReac Type Severity Reaction Status Date / Time gluten Allergy Intermediate Celiac Verified 09/20/21 11:05 disease latex Allergy Mild Rash Verified 09/20/21 11:05 amoxicillin AdvReac Intermediate Yeast Verified 09/20/21 11:05 infection cefdinir AdvReac Intermediate nausea Verified 09/20/21 11:05 Cephalosporins AdvReac Intermediate Yeast Verified 09/20/21 11:05 infection clavulanic acid AdvReac Intermediate Yeast Verified 09/20/21 11:05 infection prednisone AdvReac Intermediate Anxiety Verified 09/20/21 11:05 Past Med/Surg History Medical History Acute blood loss anemia (ABLA) Acute hyponatremia Anemia RECEIVED 2 UNITS [facility] 04/2021 RECENT ADMISSION Atrial fibrillation Dx'ed 2018 Follows w/ Dr. Delacruz, on Eliquis CAD (coronary artery disease) Medically managed by cardiology NSTEMI 07/27/20- cath demonstrated small branch vessel disease involving small OM to, not amenable to intervention. CD (celiac disease) "Does not" follow gluten-free diet Chest pressure Degenerative disc disease Diastolic CHF Diverticulitis 2013 GI bleed reason for Endoscopy/REASON FOR COLONOSCOPY History of paroxysmal supraventricular tachycardia with atrial tachycardia Low back pain with sciatica Non-ST elevation [place] (NSTEMI) 07/27/20 Ocular migraine Sleep apnea CPAP Surgical History History of arthroscopy of right shoulder RCR History of cardiac cath 2016, 07/28/20 ([place]) > no stents History of cardioversion x2, most recent 04/2019 History of carpal tunnel release R/L History of cataract surgery R/L History of cholecystectomy History of colonoscopy History of esophagogastroduodenoscopy (EGD) History of foot surgery R/L feet "to straighten toes" History of fracture of left shoulder Plate + screws History of hysterectomy JOANNA + BSO History of incision and drainage Right foot History of tonsillectomy History of total knee replacement Left x2, right x1 S/P transesophageal echocardiogram (JOHANA) Status post placement of implantable loop recorder Implanted 12/2019 Family History Mother Family hx of colon cancer Colorectal cancer Brother Prostate cancer Family history of diabetes mellitus Father Dissecting aortic aneurysm Myocardial infarction Grandmother (Maternal) Stroke Other No family history of adverse response to anesthesia Denies family history of Ovarian cancer Breast cancer Social History Smoking Status: Former smoker Tobacco Type: Cigarettes Age Started Using Tobacco: 19; Age Quit Using Tobacco: 27; packs per day: 0.25; Years Smoked: 8; Second Hand Exposure: No; Hx Alcohol Use: No Hx Substance Use: No Preferred Language: Albanian Communication Ability: Effective Bung Driver Required: No Beliefs That Will Affect Care: None marital status: Current Living Situation: Alone Current Living Situation Comment: just left her 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; 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[employer]; 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 Feels Safe at Home: Yes Childhood Exposure to Second-Hand Smoke: No Dental Care, Regularly: Yes Seatbelt Use: always Sunscreen Use: Yes Assistive Devices: Glasses Review of Systems A total of 10 systems reviewed and were otherwise negative Physical Exam Vital Signs Vital Signs - 24 hr 10/29/21 06:33 10/29/21 06:45 Temperature 36.4 C L Temperature Source Oral Pulse Rate 56 L 57 L Pulse Rhythm Regular Regular Pulse Strength Normal Respiratory Rate 20 18 Respiratory Effort / Characteristics Non-Labored Spontaneous Respiratory Depth Normal Respiratory Pattern Regular Blood Pressure 158/59 H Blood Pressure Mean 92 Blood Pressure Position Semi-fowlers Pulse Oximetry 98 98 Oxygen Delivery Method Room Air Room Air Sepsis Recent Fever Within 48 Hours No Sepsis New/Unexplained Change in Mental Status No Sepsis Action Taken by Nursing No Action Required CONSTITUTIONAL/VITAL SIGNS: Reviewed / noted above. GENERAL: Non-toxic in appearance. INTEGUMENTARY: Warm, dry, and [place]. HEAD: Normocephalic. EYES: without scleral icterus or trauma. ENT/OROPHARYNX: clear and moist. LYMPHADENOPATHY/NECK: Is supple without lymphadenopathy or meningismus. RESPIRATORY: Clear to auscultation bilaterally. No increased work of breathing. CARDIOVASCULAR: Regular rate and rhythm. GI/ABDOMEN: Soft and nontender. No organomegaly or pulsatile mass. EXTREMITIES: Warm and well perfused. Positive pedal edema. BACK: No CVA tenderness. NEUROLOGICAL: Intact without focal deficits. Positive horizontal nystagmus on exam. PSYCHIATRIC: normal affect. MUSCULOSKELETAL: Normally developed with good muscle tone. TRIAGE NURSING DOCUMENTATION REVIEWED. Course Administered Medications Discontinued Medications Ondansetron HCl (Ondansetron Inj 2 Mg/Ml 2 Ml Vial) 4 mg IV NOW STA Stop: 10/29/21 06:58 Last Admin: 10/29/21 07:01 Dose: 4 mg Documented By: SEDRICK Medical Decision Making Differential Diagnosis Differential includes acute coronary syndrome, myocardial infarction, CVA, TIA, anemia, infection, pneumonia, UTI, pyelonephritis, poor nutrition, dehydration, electrolyte disturbance,hypoglycemia. Medical Records Attestation: I reviewed the patient's medical records. Home Medications Current Medication List: was personally reviewed by me Laboratory Data Attestation: I reviewed the patient's lab results. Result diagrams: 10/29/21 06:44 10/29/21 06:44 Lab Results 10/29/21 10/29/21 10/29/21 Range/Units 06:44 06:44 06:44 WBC 9.30 (4.8-10.8) K/ul RBC 3.75 L (3.93-5.22) M/uL Hgb 11.9 L (12.0-16.0) g/dl Hct 33.9 L (34.1-44.9) % MCV 90.4 (80.0-100.0) fL MCH 31.7 (25.0-34.0) pg MCHC 35.1 (32.0-36.0) g/dL RDW Std Deviation 44.1 (36.4-46.3) fL RDW Coeff of Malinda 13.3 (11.5-14.5) % Plt Count 225 (130-400) K/uL MPV 11.3 (9.4-12.3) fL Immature Gran % (Auto) 0.3 % Neut % (Auto) 64.4 % Lymph % (Auto) 27.6 % Stearns % (Auto) 7.1 % Eos % (Auto) 0.2 % Baso % (Auto) 0.4 % Neut # (Auto) 5.98 (1.4-6.5) K/uL Lymph # (Auto) 2.57 (1.2-3.4) K/uL Stearns # (Auto) 0.66 (0.24-0.82) K/uL Eos # (Auto) 0.02 (0-0.50) K/uL Baso # (Auto) 0.04 (0-0.2) K/uL Immature Gran # (Auto) 0.03 H (0.00-0.02) K/uL Sodium 137 (136-145) mmol/L Potassium 3.1 L (3.5-5.1) mmol/L Chloride 99 (98-107) mmol/L Carbon Dioxide 28 (21-32) mmol/L Anion Gap 10 (3-11) BUN 11 (6-23) mg/dl Creatinine 0.97 (0.6-1.2) mg/dl Est Cr Clr Drug Dosing 53.4 ml/min Est GFR ( Amer) 65.8 ml/min Est GFR (Non-Af Amer) 56.7 ml/min BUN/Creatinine Ratio 11.3 (10-20) Glucose 122 H (70-99(Fasting)) mg/dl Calcium 8.9 (8.5-10.1) mg/dl Magnesium 2.0 (1.7-2.4) mg/dl Total Bilirubin 0.5 (0.2-1.0) mg/dl AST 26 (13-39) U/L ALT 22 (7-52) U/L Alkaline Phosphatase 75 (34-104) U/L Troponin I High Sens 7.1 (0-14) pg/ml Total Protein 6.9 (6.0-8.3) gm/dl Albumin 4.2 (3.4-5.0) gm/dl Globulin 2.7 (2.5-4.0) gm/dl Albumin/Globulin Ratio 1.6 (0.9-2) TSH 1.725 (0.300-4.500) uIu/ml Imaging Data Radiologist's Impression: Chest X-Ray 10/29/21 06:32 XR chest 1V portable HISTORY: 76 years-old Female weakness acute weakness COMPARISON: Chest radiograph 08/27/2021 TECHNIQUE: Portable AP view of the chest FINDINGS: Cardiomediastinal and hilar silhouettes are within normal limits. Loop recorder device is present. Ill-defined opacity projects over the left lung apex is li troy artifactual. No pneumothorax, pleural effusion, airspace consolidation or overt pulmonary edema. Degenerative changes of the shoulders and spine. Left proximal humeral ORIF hardware. Surgical clip of the left breast. IMPRESSION: No acute process. ACT 112: Negative or not required by law. The above report was generated using voice recognition software. It may contain grammatical, syntax or spelling errors. Electronically signed by: Antony Miller M.D. 10/29/2021 7:[address] 10/29/21 06:32 CT head/brain wo con CLINICAL HISTORY: 76 years-old Female with fall. Acute head trauma status post fall. Acute vertigo. TECHNIQUE: Multiple axial CT images of the head were obtained without contrast. A dose lowering technique was utilized adhering to the principles of ALARA. CT DOSE: 537.48 mGy.cm COMPARISON: Head CT 02/04/2021 FINDINGS: No acute intracranial hemorrhage, midline shift, intracranial mass, hydrocephalu s, territorial ischemia or abnormal extra-axial collection. Mild involutional changes. Mild white matter hypodensities are suggestive of chronic microvascular ischemic disease. The calvarium is intact. Prior bilateral lens repair. The paranasal sinuses, mastoid air cells, and middle ear cavities are clear. IMPRESSION: No acute intracranial abnormality or calvarial fracture. ACT 112: Negative or not required by law. The above report was generated using voice recognition software. It may contain grammatical, syntax or spelling errors. Electronically signed by: Antony Miller M.D. 10/29/2021 7:21 AM ECG Data Attestation: I personally reviewed and interpreted this ECG as follows: Additional Comments: Twelve-lead EKG: Per my interpretation shows a sinus bradycardia at a rate of 55. No ST elevation. No PVCs. Normal QTC. MDM Narrative 76-year-old female presents with vertigo symptoms and difficulty ambulating this morning because of her vertigo. She states that she had to go the bathroom so she forced herself to walk to the bathroom but struck her head on the door post. She is chronically on Eliquis for A. fib. She continues complaining of nausea, dry heaves and vertigo symptoms. She does have horizontal nystagmus on my exam. No other focal neurologic deficits. Her vital signs reveal hypertension. Twelve-lead EKG shows a sinus rhythm at a rate of 55. No ischemic changes. CT scan of the brain did not show acute process. CBC was unremarkable. Chemistry panel was unremarkable. TSH was normal. Troponin was negative. Chest x-ray did not show acute process. The patient was treated with IV Zofran, IV lorazepam as well as some p.o. meclizine. She has ongoing vertigo and nystagmus. The patient lives alone and cannot go home as she is unable to ambulate. She will be seen by the hospitalist for further inpatient evaluation and care. Impression & Plan Vertigo, Nausea & vomiting Discharge Plan Visit Data Chief Complaint: Vertigo Stated Complaint: Fall, Vertigo ED Provider: Cirilo Alejandro Discharge Problem: Vertigo, Nausea & vomiting Patient Disposition: Being Evaluated by Hospitalist Forms Stand Alone Forms: [facility] Prescriptions Prescriptions: No Action Eliquis 5 mg tablet 5 mg PO BID Qty: 180 3RF estradiol 0.075 mg/24 hr patch weekly 1 patch topical YARBROUGH Qty: 4 12RF Rx Instructions: Remove patch and apply one new patch every Monday pantoprazole 40 mg tablet,delayed release (DR/EC) 40 mg PO QAM Qty: 90 1RF Rx Instructions: 1/2 hour prior to breakfast PO daily; rivastigmine tartrate 1.5 mg capsule 1.5 mg PO BID Qty: 60 2RF amiodarone 200 mg tablet 200 mg PO BID Qty: 60 5RF furosemide [Lasix] 40 mg tablet 40 mg PO DAILY Qty: 120 0RF Rx Instructions: Can take additional 40 mg once daily for increased swelling, wt gain, or shortness of breath buspirone 5 mg tablet 5 mg PO TID Qty: 90 1RF nitroglycerin [Nitrostat] 0.4 mg tablet, sublingual 0.4 mg sublingual Q5M PRN (Reason: chest pain) Qty: 20 1RF Rx Instructions: 0.4 mg tablet under tongue every 5 minutes, up to a series of 3 tabs, as nee ded for chest discomfort. calcium carbonate [Calcium 600] 600 mg calcium (1,500 mg) Tablet 1,200 mg PO QAM cholecalciferol (vitamin D3) [Vitamin D3] 25 mcg (1,000 unit) Capsule 1,000 unit PO QAM docusate sodium 100 mg Capsule 300 mg PO QAM vitamin B complex Tablet 1 tab PO QAM rosuvastatin [Crestor] 40 mg tablet 40 mg PO HS memantine [Namenda] 10 mg tablet 10 mg PO BID polyethylene glycol 3350 [Miralax] 17 gram powder in packet 17 g PO DAILY PRN (Reason: constipation) Qty: 30 0RF Referrals Referrals: Pro,Sravan Diaz MD [Primary Care Provider] -
--- NOTE | 2021-10-29 07:23 | CT Scan Report ---
CT head/brain wo con CLINICAL HISTORY: 76 years-old Female with fall. Acute head trauma status post fall. Acute vertigo. TECHNIQUE: Multiple axial CT images of the head were obtained without contrast. A dose lowering tech nique was utilized adhering to the principles of ALARA. CT DOSE: 537.48 mGy.cm COMPARISON: Head CT 02/04/2021 FINDINGS: No acute intracranial hemorrhage, midline shift, intracranial mass, hydrocephalus, territorial ischem ia or abnormal extra-axial collection. Mild involutional changes. Mild white matter hypodensities are suggestive of chronic microvascular ischemic disease. The calvarium is intact. Prior bilateral lens repair. The paranasal sinuses, mastoid air cells, and m iddle ear cavities are clear. IMPRESSION: No acute intracranial abnormality or calvarial fracture. ACT 112: Negative or not required by law. The above report was generated using voice recognition software. It may contain grammatical, syntax o r spelling errors. Electronically signed by: Antony Miller M.D. 10/29/2021 7:21 AM
[2021-10-29 07:26] LABS: Troponin I High Sensitivity 7.1 pg/ml (0-14)
--- NOTE | 2021-10-29 07:41 | XRay Report ---
XR chest 1V portable HISTORY: 76 years-old Female weakness acute weakness COMPARISON: Chest radiograph 08/27/2021 TECHNIQUE: Portable AP view of the chest FINDINGS: Cardiomediastinal and hilar silhouettes are within normal limits. Loop recorder device is present. Il l-defined opacity projects over the left lung apex is likely artifactual. No pneumothorax, pleural ef fusion, airspace consolidation or overt pulmonary edema. Degenerative changes of the shoulders and sp ine. Left proximal humeral ORIF hardware. Surgical clip of the left breast. IMPRESSION: No acute process. ACT 112: Negative or not required by law. The above report was generated using voice recognition software. It may contain grammatical, syntax o r spelling errors. Electronically signed by: Antony Miller M.D. 10/29/2021 7:40 AM
[2021-10-29 07:57] LABS: Albumin Globulin Ratio 1.6 (0.9-2); Albumin Level 4.2 gm/dl (3.4-5.0); BUN Creatinine Ratio 11.3 (10-20); Bilirubin,Total 0.5 mg/dl (0.2-1.0); Calcium 8.9 mg/dl (8.5-10.1); Creatinine Clr Calc Pharmacy 53.4 ml/min; Est GFR (African American) 65.8 ml/min; Est GFR (Non-African American) 56.7 ml/min; Globulin 2.7 gm/dl (2.5-4.0); Potassium 3.1 mmol/L (3.5-5.1); Total Protein 6.9 gm/dl (6.0-8.3)
[2021-10-29] MEDS ORDERED: MECLIZINE HCL 25 MG TAB PO STA (08:41)
--- NOTE | 2021-10-29 08:57 | History & Physical Report ---
Date of Service October 29, 2021 Assessment & Plan (1) Vertigo: Plan: Patient will be admitted for vertigo. Currently this appears to be peripheral. will obtain MRI brain with focus on Inner ear canal. constinue meclizine (2) Persistent atrial fibrillation: Plan: will resume home meds. Heart rate appears controlled (3) Chronic diastolic CHF (congestive heart failure): Plan: Patient does not appear to be in heart failure. will resume home meds and monitor. (4) CD (celiac disease): Plan: Placed on gluten free diet. History of Present Illness Chief Complaint: vertigo Primary Care Provider: Sravan Figueroa MD 76 yo female with PMH described below prsents to the ED after havign vertigo. Patient reports she awoke this AM and was asymptomatic. However as she stood up, she felt the room was spinning and her legs were being pushed back. She stumbled as she walked to the bathroom but was able to get there without fallings. She sat down and her dizziness did not subside even after 30 minutes. Patient stood up and needed to hold onto the wall to get to the bed. She then called 911 and was brought to the ED. Allergies Allergy/AdvReac Type Severity Reaction Status Date / Time gluten Allergy Intermediate Celiac Verified 09/20/21 11:05 disease latex Allergy Mild Rash Verified 09/20/21 11:05 amoxicillin AdvReac Intermediate Yeast Verified 09/20/21 11:05 infection cefdinir AdvReac Intermediate nausea Verified 09/20/21 11:05 Cephalosporins AdvReac Intermediate Yeast Verified 09/20/21 11:05 infection clavulanic acid AdvReac Intermediate Yeast Verified 09/20/21 11:05 infection prednisone AdvReac Intermediate Anxiety Verified 09/20/21 11:05 Home Medications Medication Instructions Recorded Confirmed Type docusate sodium 100 mg capsule 300 mg PO QAM 04/15/18 10/29/21 History vitamin B complex 1 tab PO QAM 04/15/18 10/29/21 History calcium carbonate 600 mg calcium 1,200 mg PO QAM 06/08/19 10/29/21 History (1,500 mg) tablet (Calcium) cholecalciferol (vitamin D3) 25 1,000 unit PO QAM 06/08/19 10/29/21 History mcg (1,000 unit) capsule (Vitamin D3) apixaban 5 mg tablet (Eliquis) 5 mg PO BID #180 tabs 10/08/20 10/29/21 Rx estradiol 0.075 mg/24 hr weekly 1 patch topical YARBROUGH #4 ea 02/10/21 10/29/21 Rx transdermal patch memantine 10 mg tablet (Namenda) 10 mg PO BID 03/19/21 10/29/21 History rosuvastatin 40 mg tablet (Crestor) 40 mg PO HS 03/19/21 10/29/21 History polyethylene glycol 3350 17 gram 17 g PO DAILY PRN constipation #30 04/20/21 10/29/21 Rx oral powder packet (Miralax) ea pantoprazole 40 mg tablet,delayed 40 mg PO QAM #90 tabs 06/30/21 10/29/21 Rx release rivastigmine tartrate 1.5 mg 1.5 mg PO BID #60 caps 07/23/21 10/29/21 Rx capsule amiodarone 200 mg tablet 200 mg PO BID #60 tabs 08/10/21 10/29/21 Rx furosemide 40 mg tablet (Lasix) 40 mg PO DAILY Edema #120 tabs 08/18/21 10/29/21 Rx buspirone 5 mg tablet 5 mg PO TID #90 tabs 09/03/21 10/29/21 Rx nitroglycerin 0.4 mg sublingual 0.4 mg sublingual Q5M PRN chest 09/25/21 10/29/21 Rx tablet (Nitrostat) pain #20 tabs Past Med/Surg History Medical History Acute blood loss anemia (ABLA) Acute hyponatremia Anemia RECEIVED 2 UNITS [facility] 04/2021 RECENT ADMISSION Atrial fibrillation Dx'ed 2018 Follows w/ Dr. Delacruz, on Eliquis CAD (coronary artery disease) Medically managed by cardiology NSTEMI 07/27/20- cath demonstrated small branch vessel disease involving small OM to, not amenable to intervention. CD (celiac disease) "Does not" follow gluten-free diet Chest pressure Degenerative disc disease Diastolic CHF Diverticulitis 2013 GI bleed reason for Endoscopy/REASON FOR COLONOSCOPY History of paroxysmal supraventricular tachycardia with atrial tachycardia Low back pain with sciatica Non-ST elevation CT (NSTEMI) 4/26/21 Ocular migraine Sleep apnea CPAP Surgical History History of arthroscopy of right shoulder RCR History of cardiac cath 2016, 07/28/20 ([place]) > no stents History of cardioversion x2, most recent 04/2019 History of carpal tunnel release R/L History of cataract surgery R/L History of cholecystectomy History of colonoscopy History of esophagogastroduodenoscopy (EGD) History of foot surgery R/L feet "to straighten toes" History of fracture of left shoulder Plate + screws History of hysterectomy JOANNA + BSO History of incision and drainage Right foot History of tonsillectomy History of total knee replacement Left x2, right x1 S/P transesophageal echocardiogram (JOHANA) Status post placement of implantable loop recorder Implanted 12/2019 Family History Mother Family hx of colon cancer Colorectal cancer Brother Prostate cancer Family history of diabetes mellitus Father Dissecting aortic aneurysm Myocardial infarction Grandmother (Maternal) Stroke Other No family history of adverse response to anesthesia Denies family history of Ovarian cancer Breast cancer Social History Smoking Status: Former smoker Tobacco Type: Cigarettes Age Started Using Tobacco: 19; Age Quit Using Tobacco: 27; packs per day: 0.25; Years Smoked: 8; Second Hand Exposure: No; Hx Alcohol Use: No Hx Substance Use: No Preferred Language: Egyptian Communication Ability: Effective Ward Maid Required: No Beliefs That Will Affect Care: None marital status: Current Living Situation: Alone Current Living Situation Comment: just left her current occupational status: retired Other Information That Helps Us Care for You: 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; 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[employer]; 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 Feels Safe at Home: Yes Childhood Exposure to Second-Hand Smoke: No Dental Care, Regularly: Yes Seatbelt Use: always Sunscreen Use: Yes Assistive Devices: Glasses Review of Systems Constitutional: no fever and no body aches Eyes: no blind spots Ear, Nose, Mouth, Throat: + dizziness; no ear pain, no tinnitus, no hearing loss and no nasal congestion Respiratory: no cough Cardiovascular: no chest pain Gastrointestinal: no abdominal pain Genitourinary: no dysuria Musculoskeletal: no back pain Integumentary: no acne Neurologic: no gait abnormality Psychiatric: no behavioral changes Endocrine: no fatigue Hematologic / Lymphatic: no easy bleeding Allergy / Immunological: no GI upset with certain foods Physical Exam Physical Exam: Constitutional: well developed; + not well nourished and no acute distress Eyes: PERRL, conjunctivae normal, anicteric sclerae ENMT: Mouth: MM Neck: trachea midline, no thyromegaly Respiratory: normal respiratory effort, lungs clear to auscultation Cardiovascular: Rate/Rhythm: regular rate and regular rhythm Heart Sounds: no murmur Extremities: normal capillary refill and + pedal edema (trace ankle b/l equal); no calf tenderness Gastrointestinal (Abdomen): Inspection/Auscultation: abdomen normal to inspection and normal bowel sounds; abdomen not distended Percussion/Palpation: nontender and abdomen soft; no guarding and abdomen not rigid Musculoskeletal: no cyanosis or clubbing, extremities motor strength 5/5 Skin: no rashes, warm and dry Neurologic: moves all extremities and awake; no focal motor deficits (no lateralizing deficit) nystagmus noted. Psychiatric: A+Ox3, euthymic affect Results & Data Results & Data ([facility]) Vital Signs (Past 12 Hours) Vital Signs Temp Pulse Resp BP Pulse Ox O2 Del Method 10/29/21 06:45 57 L 18 98 Room Air 10/29/21 06:33 36.4 C L 56 L 20 158/59 H 98 Room Air PG Care Time/CCT Total # of Minutes Spent Total Time Spent with Patient: Total time spent is greater than 50% in coordination of care (as documented) at patient's floor/unit and/or counseling patient: Coding Level of Care Code 80179 Initial Inpt Care Lvl 3 Diagnoses Vertigo R42 Persistent atrial fibrillation I48.19 Chronic diastolic CHF (congestive heart failure) I50.32 CD (celiac disease) K90.0
[2021-10-29] MEDS ORDERED: POLYETHYLENE (MIRALAX) 17 GM PACK PO PRN (09:05)
[2021-10-29 10:03] LABS: Appearance Urine Turbid (Clear); Bacteria Urine Automated Negative (Negative); Bilirubin Urine Negative (Negative); Blood Urine Negative (Negative); Color Urine Yellow; Epithelial Cell Urine Auto >30 /lpf (0-5); Glucose Urine UA Negative (Negative); Ketones Urine Negative (Negative); Leukocyte Esterase Urine Negative (Negative); Nitrite Urine Negative (Negative); Protein Urine Negative (Negative); RBC Urine Automated 0-4 /hpf (0-4); Specific Gravity Urine 1.009 (1.000-1.030); Urobilinogen Urine Negative (Negative); pH Urine 8.5 (4.5-7.5)
[2021-10-29] MEDS ORDERED: PANTOprazole 40 MG TAB PO STA (10:09)
[2021-10-29] MEDS ORDERED: busPIRone 5 MG TAB PO ONE (10:30)
[2021-10-29] MEDS ORDERED: MEMANTINE HCL 10 MG TAB PO ONE (10:30)
[2021-10-29] MEDS ORDERED: DOCUSATE SODIUM 100 MG CAP PO ONE (10:30)
[2021-10-29] MEDS ORDERED: AMIODARONE 200 MG TAB PO ONE (10:43)
[2021-10-29] MEDS ORDERED: APIXABAN 5 MG TABLET PO ONE (11:15)
[2021-10-29] MEDS: POTASSIUM CHLORIDE CRTAB 20 MEQ TABCR PO SCH ×2 (11:27→21:54)
[2021-10-29] MEDS ORDERED: GADOBUTROL 65ML VIAL IV ONE (12:28)
--- NOTE | 2021-10-29 14:02 | Magnetic Resonance Report ---
MR brain IAC wo/w con HISTORY: 76 years-old Female nystagmus/ vertigo acute vertigo with nausea COMPARISON: CT head of same day, brain MRI 09/05/2019 TECHNIQUE: Multiplanar multisequence MRI of the brain was obtained both with and without the use of 8 cc Gadavist utilizing internal auditory canal protocol FINDINGS: Budget Analyst localizer images demonstrate no gross extracranial abnormality. No restricted diffusion to sugg est acute or subacute infarct. Motion degraded exam. The midline structures appear unremarkable. Dege nerative changes of the imaged cervical spine. No acute intracranial hemorrhage, midline shift, abnor mal extra-axial collection, hydrocephalus or intracranial mass. 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 Minimal involutional changes. Mild white matter T2/FLAIR hyperintense foci are suggestive of chronic microvascular ischemic disease. Cerebral venous sinuses and major arterial flow voids appear patent. Left greater than right mastoid effusions. The paranasal sinuses are generally clear. Prior bilateral lens repair. The visualized internal auditory canals, VII and VIII cranial nerves appear unremarkable. The cistern al portions of the V cranial nerves are within normal limits. No mass lesions of the cerebellar ponti ne angles. There is no abnormal intra-axial or extra-axial enhancement. IMPRESSION: 1. Motion degraded exam without acute intracranial abnormality. 2. Unremarkable appearance of the internal auditory canals, VII and VIII cranial nerves. 3. No intracranial mass or abnormal enhancement. 4. Involutional changes with mild chronic microvascular ischemic disease. ACT 112: Negative or not required by law. The above report was generated using voice recognition software. It may contain grammatical, syntax o r spelling errors. Electronically signed by: Antony Miller M.D. 10/29/2021 2:00 PM
[2021-10-29] MEDS: busPIRone 5 MG TAB PO SCH ×2 (15:10→21:53)
[2021-10-29] MEDS ORDERED: AMIODARONE 200 MG TAB PO SCH (21:00)
--- NOTE | 2021-10-29 21:17 | Electrocardiogram Report ---
Test Reason : Blood Pressure : / mmHG Vent. Rate : 055 BPM Atrial Rate : 055 BPM P-R Int : 166 ms QRS Dur : 110 ms QT Int : 508 ms P-R-T Axes : 090 037 036 degrees QTc Int : 485 ms Poor data quality, interpretation may be adversely affected Sinus bradycardia Otherwise normal ECG When compared with ECG of 18-APR-2021 10:56, No significant change was found Confirmed by Griffin Dao ([id number]) on 10/29/2021 9:16:47 PM Referred By: REFERRED SELF Confirmed By:Griffin Dao
--- NOTE | 2021-10-29 21:28 | Communication Note ---
Date of Service: October 29, 2021 Holding home PO amiodarone 200mg PO BID (chronic regimen for parox afib) for persistent bradycardia 51. Per telemetry room, she has been in sinus radha, and is not in afib. She dipped to upper 40s briefly earlier in the night. Per chart review, she has had bradycardia in past, though in the mid-upper 50s.
[2021-10-29] MEDS: ROSUVASTATIN CALCIUM 20 MG TAB PO SCH (21:52)
[2021-10-29] MEDS: RIVASTIGMINE TARTRATE 1.5 MG CAP PO SCH (21:53)
[2021-10-29] MEDS: APIXABAN 5 MG TABLET PO SCH (21:55)
[2021-10-29] MEDS: MEMANTINE HCL 10 MG TAB PO SCH (21:55)
[2021-10-29] MEDS ORDERED: MECLIZINE HCL 25 MG TAB PO PRN (23:03)
[2021-10-30] MEDS ORDERED: PROCHLORPERAZINE 10 MG in SYRINGE 8 ML IV ONE (09:05)
[2021-10-30] MEDS ORDERED: diphenhydrAMINE 50 MG/ML VIAL IV STA (09:05)
[2021-10-30] MEDS: busPIRone 5 MG TAB PO SCH ×3 (10:28→21:34)
[2021-10-30] MEDS: APIXABAN 5 MG TABLET PO SCH ×2 (10:28→21:35)
[2021-10-30] MEDS: CALCIUM CARBONATE 1250MG TAB PO SCH (10:28)
[2021-10-30] MEDS: CHOLECALCIFEROL 1,000 UNITS 25 MCG TAB PO SCH (10:28)
[2021-10-30] MEDS: DOCUSATE SODIUM 100 MG CAP PO SCH (10:29)
[2021-10-30] MEDS: FUROSEMIDE 40 MG TAB PO SCH (10:29)
[2021-10-30] MEDS: MEMANTINE HCL 10 MG TAB PO SCH ×2 (10:30→21:35)
[2021-10-30] MEDS: PANTOprazole 40 MG TAB PO SCH (10:30)
[2021-10-30] MEDS: POTASSIUM CHLORIDE CRTAB 20 MEQ TABCR PO SCH ×3 (10:30→21:32)
[2021-10-30] MEDS: RIVASTIGMINE TARTRATE 1.5 MG CAP PO SCH ×2 (10:31→21:35)
[2021-10-30] MEDS: VITAMIN B COMPLEX TAB PO SCH (10:31)
--- NOTE | 2021-10-30 16:43 | Hospitalist Progress Note ---
Date of Service October 30, 2021 Assessment & Plan (1) Vertigo: Plan: Patient will be admitted for vertigo. Currently this appears to be peripheral. will obtain MRI brain with focus on Inner ear canal. constinue meclizine on 10/31 Patient had a severe headache. MRI of brain was negative the day prior, will order benadryl and compazine. will monitor overnight. If symptoms improve, possible discharge in AM. (2) Persistent atrial fibrillation: Plan: will resume home meds. Heart rate appears controlled (3) Chronic diastolic CHF (congestive heart failure): Plan: Patient does not appear to be in heart failure. will resume home meds and monitor. (4) CD (celiac disease): Plan: Placed on gluten free diet. Admission and Anticipated Discharge Date Admission Date: October 29, 2021 Subjective Patient reports having a headache today. She is asking for tylenol. She reports she does not have dizziness, but has not moved yet today. Review of Systems Review of Systems: All systems reviewed & are unremarkable except as noted in HPI & below Physical Exam Physical Exam: Constitutional: well developed; + not well nourished and no acute distress Eyes: PERRL, conjunctivae normal, anicteric sclerae ENMT: Mouth: MM Neck: trachea midline, no thyromegaly Respiratory: normal respiratory effort, lungs clear to auscultation Cardiovascular: Rate/Rhythm: regular rate and regular rhythm Heart Sounds: no murmur Extremities: normal capillary refill and + pedal edema (trace ankle b/l equal); no calf tenderness Gastrointestinal (Abdomen): Inspection/Auscultation: abdomen normal to ins pection and normal bowel sounds; abdomen not distended Percussion/Palpation: nontender and abdomen soft; no guarding and abdomen not rigid Musculoskeletal: no cyanosis or clubbing, extremities motor strength 5/5 Skin: no rashes, warm and dry Neurologic: moves all extremities and awake; no focal motor deficits (no lateralizing deficit) nystagmus noted. Psychiatric: A+Ox3, euthymic affect Results & Data Results & Data ([facility]) Vital Signs (Past 12 Hours) Vital Signs Temp Pulse Pulse Resp BP Pulse Ox O2 Del Method 10/30/21 16:00 51 L 10/30/21 15:48 36.8 C 48 L 18 113/58 L 98 Room Air 10/30/21 08:00 59 L 07/30/22 11:00 36.5 C 50 L 18 123/62 97 Room Air PG Care Time/CCT Total # of Minutes Spent Total Time Spent with Patient: Total time spent is greater than 50% in coordination of care (as documented) at patient's floor/unit and/or counseling patient: Coding Level of Care Code 40626 Subseq Hosp Care Lvl 2 Diagnoses Vertigo R42 Persistent atrial fibrillation I48.19 Chronic diastolic CHF (congestive heart failure) I50.32 CD (celiac disease) K90.0 Time Spent (min) 25
[2021-10-30] MEDS: LACTATED RINGER'S 1,000 ML IV SCH (18:49)
[2021-10-30] MEDS: ROSUVASTATIN CALCIUM 20 MG TAB PO SCH (21:33)
[2021-10-31] MEDS: LACTATED RINGER'S 1,000 ML IV SCH (06:08)
[2021-10-31] MEDS: APIXABAN 5 MG TABLET PO SCH (08:13)
[2021-10-31] MEDS: RIVASTIGMINE TARTRATE 1.5 MG CAP PO SCH (08:13)
[2021-10-31] MEDS: VITAMIN B COMPLEX TAB PO SCH (08:14)
[2021-10-31] MEDS: MEMANTINE HCL 10 MG TAB PO SCH (08:15)
[2021-10-31] MEDS: FUROSEMIDE 40 MG TAB PO SCH (08:15)
[2021-10-31] MEDS: CHOLECALCIFEROL 1,000 UNITS 25 MCG TAB PO SCH (08:15)
[2021-10-31] MEDS: CALCIUM CARBONATE 1250MG TAB PO SCH (08:16)
[2021-10-31] MEDS: PANTOprazole 40 MG TAB PO SCH (08:17)
[2021-10-31] MEDS: DOCUSATE SODIUM 100 MG CAP PO SCH (08:39)
[2021-10-31] MEDS: POTASSIUM CHLORIDE CRTAB 20 MEQ TABCR PO SCH ×2 (08:44→14:00)
[2021-10-31] MEDS: busPIRone 5 MG TAB PO SCH ×2 (10:19→13:58)
--- NOTE | 2021-10-31 14:08 | Discharge Summary ---
Date of Service October 31, 2021 Admission HPI Per Admitting Provider 76 yo female with PMH described below prsents to the ED after havign vertigo. Patient reports she awoke this AM and was asymptomatic. However as she stood up, she felt the room was spinning and her legs were being pushed back. She stumbled as she walked to the bathroom but was able to get there without fallings. She sat down and her dizziness did not subside even after 30 minutes. Patient stood up and needed to hold onto the wall to get to the bed. She then called 911 and was brought to the ED. Principal Diagnosis Benign paroxysmal positional vertigo. Discharge Exam Constitutional: well developed; + not well nourished and no acute distress Eyes: PERRL, conjunctivae normal, anicteric sclerae ENMT: Mouth: MM Neck: trachea midline, no thyromegaly Respiratory: normal respiratory effort, lungs clear to auscultation Cardiovascular: Rate/Rhythm: regular rate and regular rhythm Heart Sounds: no murmur Extremities: normal capillary refill and + pedal edema (trace ankle b/l equal); no calf tenderness Gastrointestinal (Abdomen): Inspection/Auscultation: abdomen normal to inspection and normal bowel sounds; abdomen not distended Percussion/Palpation: nontender and abdomen soft; no guarding and abdomen not rigid Musculoskeletal: no cyanosis or clubbing, extremities motor strength 5/5 Skin: no rashes, warm and dry Neurologic: moves all extremities and awake; no focal motor deficits (no lateralizing deficit) nystagmus noted. Psychiatric: A+Ox3, euthymic affect Discharge Data Allergies Allergy/AdvReac Type Severity Reaction Status Date / Time gluten Allergy Intermediate Celiac Verified 09/20/21 11:05 disease latex Allergy Mild Rash Verified 09/20/21 11:05 amoxicillin AdvReac Intermediate Yeast Verified 09/20/21 11:05 infection cefdinir AdvReac Intermediate nausea Verified 09/20/21 11:05 Cephalosporins AdvReac Intermediate Yeast Verified 09/20/21 11:05 infection clavulanic acid AdvReac Intermediate Yeast Verified 09/20/21 11:05 infection prednisone AdvReac Intermediate Anxiety Verified 09/20/21 11:05 Consultations 10/29/21 09:58 ED Decision to Admit Stat Ordered Studies 10/29/21 06:32 CT head/brain wo con Stat 10/29/21 09:59 MR brain IAC wo/w con Routine Hospital Course (1) Vertigo: Patient will be admitted for vertigo. Currently this appears to be peripheral. will obtain MRI brain with focus on Inner ear canal. constinue meclizine on 10/30 Patient had a severe headache. MRI of brain was negative the day prior, will order benadryl and compazine. will monitor overnight. If symptoms improve, possible discharge in AM. On 10/31 Patient improved. Agreeable for discharge. (2) Persistent atrial fibrillation: As patient has been bradycardic, will hold amiodarone in the short term. will have patient follow up with PCP to discuss if patient should resume on this medication. Given the long half-life, patient should do well without medications for few days. (3) Chronic diastolic CHF (congestive heart failure): Patient does not appear to be in heart failure. will resume home meds and monitor. (4) CD (celiac disease): Placed on gluten free diet while he was here. Total Time Total Time Spent Total Time Spent (In Minutes): 35 Discharge Plan Discharge Items Patient Disposition: Home - Self-Care Reason For Visit: VERTIGO/HEAD TRAUMA Discharge Diagnosis: vertigo/ head trauma Activity: Resume your previous activity Non-emergency contact: Primary Care Provider Call non-emergency contact if: you have any medication questions Follow-up/Referrals: Sravan Figueroa MD [Primary Care Provider] - 11/12/21 10:30 am Diet: Gluten Free Addtl Attending Provider Instructions: You have been hospitalized for an acute medical problem: benign paroxysmal positional vertigo. During your stay at [facility], we have made an effort to correct the problem that brought you to the hospital while keeping you as comfortable as possible. Medications were used to bring your condition under control and your discharge instructions will include directions for any medications you should take after leaving the hospital. Please make sure you see your Primary Care Provider as part of your follow up plan. Please see PCP in 1-2 weeks. recommend holding AMIODARONE UNTIL SEEN BY PCP. This is due to your low heart rate. Amiodarone can stay in your system and be active for up to 2 months. Pending Studies at Discharge: No Stand-Alone Forms: My [facility], Smoking Cessation Medications and DC Order Prescriptions: Continued Eliquis 5 mg tablet 5 mg PO BID Qty: 180 3RF estradiol 0.075 mg/24 hr patch weekly 1 patch topical YARBROUGH Qty: 4 12RF Rx Instructions: Remove patch and apply one new patch every Monday pantoprazole 40 mg tablet,delayed release (DR/EC) 40 mg PO QAM Qty: 90 1RF Rx Instructions: 1/2 hour prior to breakfast PO daily; rivastigmine tartrate 1.5 mg capsule 1.5 mg PO BID Qty: 60 2RF furosemide [Lasix] 40 mg tablet 40 mg PO DAILY Qty: 120 0RF Rx Instructions: Can take additional 40 mg once daily for increased swelling, wt gain, or shortness of breath buspirone 5 mg tablet 5 mg PO TID Qty: 90 1RF nitroglycerin [Nitrostat] 0.4 mg tablet, sublingual 0.4 mg sublingual Q5M PRN (Reason: chest pain) Qty: 20 1RF Rx Instructions: 0.4 mg tablet under tongue every 5 minutes, up to a series of 3 tabs, as needed for chest discomfort. calcium carbonate [Calcium 600] 600 mg calcium (1,500 mg) Tablet 1,200 mg PO QAM cholecalciferol (vitamin D3) [Vitamin D3] 25 mcg (1,000 unit) Capsule 1,000 unit PO QAM docusate sodium 100 mg Capsule 300 mg PO QAM vitamin B complex Tablet 1 tab PO QAM rosuvastatin [Crestor] 40 mg tablet 40 mg PO HS memantine [Namenda] 10 mg tablet 10 mg PO BID polyethylene glycol 3350 [Miralax] 17 gram powder in packet 17 g PO DAILY PRN (Reason: constipation) Qty: 30 0RF Discontinued amiodarone 200 mg tablet 200 mg PO BID Qty: 60 5RF Discharge Orders: Discharge Order (Routine); Ordered 10/31/21 Ordered By: Kamari Alegria Admission Data Admit Date/Time: 10/29/21 09:00 Attending Provider: Kamari Alegria Admit Provider: Kamari Alegria Primary Care Provider: Sravan Figueroa Other Providers: Kamair Alegria Other Interventions: Discharge Summary Assessment (RN) Last Done: 10/31/21 14:14 Coding Level of Care Code D/C DAY MANAGEMENT >30 MINS Diagnoses Vertigo R42 Persistent atrial fibrillation I48.19 Chronic diastolic CHF (congestive heart failure) I50.32 CD (celiac disease) K90.0
== END 2021-10-31 14:50 | disposition home or self-care (01) | DRG 149 ==
LOC: ED 06:23 → EDINP 09:00 → 2N 18:51
DX: I48.19 Other persistent atrial fibrillation; Z99.89 Dependence on other enabling machines and devices; I50.32 Chronic diastolic (congestive) heart failure; Z87.891 Personal history of nicotine dependence; Z79.01 Long term (current) use of anticoagulants; H81.10 Benign paroxysmal vertigo, unspecified ear; Z91.040 Latex allergy status; Z95.818 Presence of other cardiac implants and grafts; I25.10 Atherosclerotic heart disease of native coronary artery without angina pectoris; Z91.018 Allergy to other foods; I25.2 Old myocardial infarction; K90.0 Celiac disease; G47.30 Sleep apnea, unspecified; Z90.710 Acquired absence of both cervix and uterus; W22.8XXA Striking against or struck by other objects, initial encounter; Z79.899 Other long term (current) drug therapy; Z96.653 Presence of artificial knee joint, bilateral; Z88.8 Allergy status to other drugs, medicaments and biological substances; Z88.0 Allergy status to penicillin; Z79.890 Hormone replacement therapy; R51.9 Headache, unspecified

== ENCOUNTER 2021-12-08 09:06 | Inpatient (IN) ==
--- NOTE | 2021-12-08 09:37 | Emergency Department Note ---
History of Present Illness General Chief complaint: Leg Injury/Pain Stated complaint: LEGS ARE SWOLLEN, LEAKAGE Time Seen by Provider: 12/08/21 09:19 Source: patient, family (Daughter who is at the bedside), RN notes reviewed and old records reviewed Mode of arrival: ambulatory Limitations: no limitations History of Present Illness Maximum Pain Intensity: 6 This patient is a 76-year-old female who is a history of CHF comes in with bilateral lower extremity edema that is increased over the last 3 weeks she has been on Lasix she normally takes 40 a day but increase it to 80 a day on . She talked to her doctor's office yesterday and they recommended she see her primary doctor today and when she called they told her to come to the ER. She says her legs been more swollen her daughter so they are weepy last night and since somewhat red. She has lost about 4 pounds in the last 3 weeks. She gets chest pain at times and she had a little bit today she feels short of breath intermittently. She has a mild right-sided headache at times. No fall or trauma no fever chills no nausea vomiting abdominal pain. She is scheduled for colonoscopy on the due to ongoing anemia she has been receiving iron transfusions. Her stool has been dark at times. She is on Eliquis for A. fib. Home Medications Medication Instructions Recorded Confirmed Type docusate sodium 100 mg capsule 300 mg PO QAM 04/15/18 12/08/21 History calcium carbonate 600 mg calcium 1,200 mg PO QAM 06/08/19 12/08/21 History (1,500 mg) tablet (Calcium) cholecalciferol (vitamin D3) 25 1,000 unit PO QAM 06/08/19 12/08/21 History mcg (1,000 unit) capsule (Vitamin D3) apixaban 5 mg tablet (Eliquis) 5 mg PO BID #180 tabs 10/08/20 12/08/21 Rx estradiol 0.075 mg/24 hr weekly 1 patch topical YARBROUGH #4 ea 02/10/21 12/08/21 Rx transdermal patch rosuvastatin 40 mg tablet (Crestor) 40 mg PO HS 03/19/21 12/08/21 History pantoprazole 40 mg tablet,delayed 40 mg PO QAM #90 tabs 06/30/21 12/08/21 Rx release buspirone 5 mg tablet 5 mg PO TID #90 tabs 09/03/21 12/08/21 Rx nitroglycerin 0.4 mg sublingual 0.4 mg sublingual Q5M PRN chest 09/25/21 12/08/21 Rx tablet (Nitrostat) pain #20 tabs memantine 10 mg tablet (Namenda) 10 mg PO BID #180 tabs 11/11/21 12/08/21 Rx sodium sul 1.479 gram-potas ch 24 tab PO .COMPLEX #24 tabs 11/11/21 12/08/21 Rx 0.188 gram-magnes sul 0.225 gram tablet (Sutab) amiodarone 200 mg tablet 200 mg PO QAM 12/03/21 12/08/21 History furosemide 40 mg tablet (Lasix) 40 mg PO QAM PRN Edema 12/03/21 12/08/21 History rivastigmine tartrate 3 mg capsule 3 mg PO BID #180 caps 12/03/21 12/08/21 Rx cyanocobalamin (vitamin B-12) 500 mcg PO DAILY 12/08/21 12/08/21 History 1,000 mcg/15 mL oral liquid Allergies Allergy/AdvReac Type Severity Reaction Status Date / Time gluten Allergy Intermediate Celiac Verified 12/08/21 15:18 disease latex Allergy Mild Rash Verified 12/08/21 15:18 amoxicillin AdvReac Intermediate Yeast Verified 12/08/21 15:18 infection cefdinir AdvReac Intermediate nausea Verified 12/08/21 15:18 Cephalosporins AdvReac Intermediate Yeast Verified 12/08/21 15:18 infection clavulanic acid AdvReac Intermediate Yeast Verified 12/08/21 15:18 infection prednisone AdvReac Intermediate Anxiety Verified 12/08/21 15:18 Past Med/Surg History Medical History Acute blood loss anemia (ABLA) Acute hyponatremia Anemia RECEIVED 2 UNITS [facility] 04/2021 RECENT ADMISSION Atrial fibrillation Dx'ed 2019 Follows w/ Dr. Delacruz, on Eliquis CAD (coronary artery disease) Medically managed by cardiology NSTEMI 07/27/20- cath demonstrated small branch vessel disease involving small OM to, not amenable to intervention. CD (celiac disease) "Does not" follow gluten-free diet Chest pressure Degenerative disc disease Diastolic CHF Diverticulitis 2013 GI bleed reason for Endoscopy/REASON FOR COLONOSCOPY History of paroxysmal supraventricular tachycardia with atrial tachycardia Low back pain with sciatica Nausea & vomiting Non-ST elevation [place] (NSTEMI) 07/27/20 Ocular migraine Sleep apnea CPAP Vertigo Surgical History History of arthroscopy of right shoulder RCR History of cardiac cath 2015, 07/28/20 ([place]) > no stents History of cardioversion x2, most recent 04/2019 History of carpal tunnel release R/L History of cataract surgery R/L History of cholecystectomy History of colonoscopy History of esophagogastroduodenoscopy (EGD) History of foot surgery R/L feet "to straighten toes" History of fracture of left shoulder Plate + screws History of hysterectomy JOANNA + BSO History of incision and drainage Right foot History of tonsillectomy History of total knee replacement Left x2, right x1 S/P transesophageal echocardiogram (JOHANA) Status post placement of implantable loop recorder Implanted 12/2019 - Follows Dr. Yoo Family History Mother Family hx of colon cancer Colorectal cancer Brother Prostate cancer Family history of diabetes mellitus Father Dissecting aortic aneurysm Myocardial infarction Grandmother (Maternal) Stroke Other No family history of adverse response to anesthesia Denies family history of Ovarian cancer Breast cancer Social History Smoking Status: Never smoker Tobacco Type: Cigarettes Age Started Using Tobacco: 19; Age Quit Using Tobacco: 27; packs per day: 0.25; Years Smoked: 8; Second Hand Exposure: No; Hx Alcohol Use: No Hx Substance Use: No Preferred Language: Yoruba Communication Ability: Effective Admitting Office Escort Required: No Beliefs That Will Affect Care: None marital status: Current Living Situation: Alone Current Living Situation Comment: just left her 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; 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[employer]; 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 Feels Safe at Home: Yes Childhood Exposure to Second-Hand Smoke: No Dental Care, Regularly: Yes Seatbelt Use: always Sunscreen Use: Yes Assistive Devices: Glasses Review of Systems A total of 10 systems reviewed and were otherwise negative Physical Exam Vital Signs Vital Signs - 24 hr 12/08/21 09:15 12/08/21 10:20 12/08/21 10:29 Temperature 36.7 C Temperature Source Temporal Artery Scan Pulse Rate 55 L Pulse Rate [Apical] 55 L Pulse Rhythm Regular Pulse Rhythm [Apical] Regular Pulse Strength Normal Pulse Strength [Apical] Normal Respiratory Rate 20 20 Respiratory Effort / Characteristics Non-Labored Spontaneous Non-Labored Spontaneous Respiratory Depth Normal Normal Respiratory Pattern Regular Blood Pressure 117/50 L Blood Pressure [Left Arm] 118/62 Blood Pressure Mean 72 Blood Pressure Mean [Left Arm] 80 Blood Pressure Position Sitting Blood Pressure Position [Left Arm] Pulse Oximetry 96 97 Oxygen Delivery Method Room Air Room Air Room Air Sepsis Recent Fever Within 48 Hours No Sepsis New/Unexplained Change in Mental Status No Sepsis Action Taken by Nursing No Action Required 12/08/21 11:52 12/08/21 13:00 12/08/21 15:00 Temperature Temperature Source Pulse Rate Pulse Rate [Apical] 58 L 52 L 46 L Pulse Rhythm Pulse Rhythm [Apical] Regular Pulse Strength Pulse Strength [Apical] Normal Respiratory Rate 20 16 16 Respiratory Effort / Characteristics Non-Labored Spontaneous Respiratory Depth Normal Respiratory Pattern Regular Blood Pressure Blood Pressure [Left Arm] 145/59 H 138/50 L 128/43 L Blood Pressure Mean Blood Pressure Mean [Left Arm] 87 79 71 Blood Pressure Position Blood Pressure Position [Left Arm] Sitting Pulse Oximetry 100 100 97 Oxygen Delivery Method Room Air Room Air Room Air Sepsis Recent Fever Within 48 Hours Sepsis New/Unexplained Change in Mental Status Sepsis Action Taken by Nursing General: Well developed well nourished older female who appears in no acute distress, breathing comfortably on room air. Normal speech HEENT: Normal cephalic atraumatic. Pupils are equal round and reactive to light. Extraocular movements are intact. Oropharynx is pink with moist mucous membranes. No swelling of the mouth lips or tongue. Neck: Supple with a midline trachea. No meningeal signs or stiffness, no JVD or bruits. No Stridor. Chest: Clear to auscultation bilaterally. No wheezes or rhonchi. No increased work of breathing. Heart: Regular rate and rhythm without murmurs or gallops. Abdomen: Soft nontender, nondistended without rebound guarding or rigidity. Extremities: No cyanosis clubbing. She has bilateral pitting lower extremity edema. There is a small area of redness where she had a skin rate but no overt cellulitis. No assymetry Spine/Back. Non tender to palpation. No CVA tenderness Skin: Good turgor without rashes. Neurologic exam: Cranial nerves two through 12 are intact. Motor and sensation are intact and symmetrical throughout. Course Administered Medications Discontinued Medications Acetaminophen (Acetaminophen 325 Mg Tab) 650 mg PO NOW STA Stop: 12/08/21 11:57 Last Admin: 12/08/21 12:02 Dose: 650 mg Documented By: HOOD Furosemide (Furosemide 40 Mg/4 Ml Vial) 40 mg IV ONE ONE Stop: 12/08/21 11:54 Last Admin: 12/08/21 12:02 Dose: 40 mg Documented By: HOOD Medical Decision Making Differential Diagnosis CHF, anemia, GI bleed, acute coronary syndrome, arrhythmia, electrolyte or metabolic abnormality,, blood clot Medical Records Attestation: I reviewed the patient's medical records. Home Medications Current Medication List: was personally reviewed by me Laboratory Data Attestation: I reviewed the patient's lab results. Result diagrams: 12/08/21 09:45 12/08/21 09:45 Lab Results 12/08/21 12/08/21 12/08/21 Range/Units 09:45 09:45 09:45 WBC 5.75 (4.8-10.8) K/ul RBC 3.76 L (3.93-5.22) M/uL Hgb 11.9 L (12.0-16.0) g/dl Hct 35.7 (34.1-44.9) % MCV 94.9 (80.0-100.0) fL MCH 31.6 (25.0-34.0) pg MCHC 33.3 (32.0-36.0) g/dL RDW Std Deviation 53.9 H (36.4-46.3) fL RDW Coeff of Malinda 15.5 H (11.5-14.5) % Plt Count 246 (130-400) K/uL MPV 11.3 (9.4-12.3) fL Immature Gran % (Auto) 0.2 % Neut % (Auto) 51.6 % Lymph % (Auto) 34.3 % [place] % (Auto) 12.5 % Eos % (Auto) 0.7 % Baso % (Auto) 0.7 % Neut # (Auto) 2.97 (1.4-6.5) K/uL Lymph # (Auto) 1.97 (1.2-3.4) K/uL [place] # (Auto) 0.72 (0.24-0.82) K/uL Eos # (Auto) 0.04 (0-0.50) K/uL Baso # (Auto) 0.04 (0-0.2) K/uL Immature Gran # (Auto) 0.01 (0.00-0.02) K/uL PT 11.8 (9.0-12.0) Seconds INR 1.1 (0.9-1.1) APTT 31.2 H (21.0-31.0) Seconds PTT Ratio 1.1 Sodium 138 (136-145) mmol/L Potassium 3.5 (3.5-5.1) mmol/L Chloride 99 (98-107) mmol/L Carbon Dioxide 34 H (21-32) mmol/L Anion Gap 5 (3-11) BUN 11 (6-23) mg/dl Creatinine 0.98 (0.6-1.2) mg/dl Est Cr Clr Drug Dosing 51.0 ml/min Est GFR ( Amer) 64.9 ml/min Est GFR (Non-Af Amer) 56.0 ml/min BUN/Creatinine Ratio 11.2 (10-20) Glucose 82 (70-99(Fasting)) mg/dl Calcium 9.1 (8.5-10.1) mg/dl Phosphorus (2.5-4.9) mg/dl Magnesium (1.7-2.4) mg/dl Total Bilirubin 0.6 (0.2-1.0) mg/dl AST 30 (13-39) U/L ALT 26 (7-52) U/L Alkaline Phosphatase 77 (34-104) U/L Troponin I High Sens 6.8 (0-14) pg/ml B-Natriuretic Peptide (0-100) pg/ml Total Protein 7.2 (6.0-8.3) gm/dl Albumin 4.3 (3.4-5.0) gm/dl Globulin 2.9 (2.5-4.0) gm/dl Albumin/Globulin Ratio 1.5 (0.9-2) Lipase 9 L (11-82) U/L SARS-CoV-2, RNA, NAAT (NEGATIVE) 12/08/21 12/08/21 12/08/21 Range/Units 09:45 09:45 09:54 WBC (4.8-10.8) K/ul RBC (3.93-5.22) M/uL Hgb (12.0-16.0) g/dl Hct (34.1-44.9) % MCV (80.0-100.0) fL MCH (25.0-34.0) pg MCHC (32.0-36.0) g/dL RDW Std Deviation (36.4-46.3) fL RDW Coeff of Malinda (11.5-14.5) % Plt Count (130-400) K/uL MPV (9.4-12.3) fL Immature Gran % (Auto) % Neut % (Auto) % Lymph % (Auto) % [place] % (Auto) % Eos % (Auto) % Baso % (Auto) % Neut # (Auto) (1.4-6.5) K/uL Lymph # (Auto) (1.2-3.4) K/uL [place] # (Auto) (0.24-0.82) K/uL Eos # (Auto) (0-0.50) K/uL Baso # (Auto) (0-0.2) K/uL Immature Gran # (Auto) (0.00-0.02) K/uL PT (9.0-12.0) Seconds INR (0.9-1.1) APTT (21.0-31.0) Seconds PTT Ratio Sodium (136-145) mmol/L Potassium (3.5-5.1) mmol/L Chloride (98-107) mmol/L Carbon Dioxide (21-32) mmol/L Anion Gap (3-11) BUN (6-23) mg/dl Creatinine (0.6-1.2) mg/dl Est Cr Clr Drug Dosing ml/min Est GFR ( Amer) ml/min Est GFR (Non-Af Amer) ml/min BUN/Creatinine Ratio (10-20) Glucose (70-99(Fasting)) mg/dl Calcium (8.5-10.1) mg/dl Phosphorus 3.8 (2.5-4.9) mg/dl Magnesium 2.3 (1.7-2.4) mg/dl Total Bilirubin (0.2-1.0) mg/dl AST (13-39) U/L ALT (7-52) U/L Alkaline Phosphatase (34-104) U/L Troponin I High Sens (0-14) pg/ml B-Natriuretic Peptide 249 H (0-100) pg/ml Total Protein (6.0-8.3) gm/dl Albumin (3.4-5.0) gm/dl Globulin (2.5-4.0) gm/dl Albumin/Globulin Ratio (0.9-2) Lipase (11-82) U/L SARS-CoV-2, RNA, NAAT NEGATIVE (NEGATIVE) Imaging Data Attestation: I personally reviewed and interpreted this imaging study as follows: My Impression: Chest x-rayno acute infiltrate, failure, pneumothorax seen CT of the headno acute hemorrhage or mass-effect Radiologist's Impression: Chest X-Ray 12/08/21 09:31 XR chest 1V portable CLINICAL HISTORY: Atypical chest pain. COMPARISON STUDY: Chest radiograph October 29, 2021. FINDINGS: Proximal left humeral internal fixation and cardiac monitoring device are incidentally noted. Lung volumes are normal. Lungs are clear. There is no pneumothorax or pleural effusion. Cardiac size is normal. Mediastinal contours are normal. There is no evidence for pulmonary edema. IMPRESSION: No acute cardiopulmonary findings. ACT 112: Negative or not required by law. Electronically signed by: Kimani De M.D. 12/08/2021 9:[address] 12/08/21 11:53 CT head/brain wo con CLINICAL HISTORY: 76 years-old Female with headache on anticoag. Chronic headache TECHNIQUE: Multiple axial CT images of the head were obtained without contrast. A dose lowering technique was utilized adhering to the principles of ALARA. CT DOSE: 537.48 mGy.cm COMPARISON: Brain MRI 10/29/2021, head CT 10/29/2021 FINDINGS: No acute intracranial hemorrhage, midline shift, intracranial mass, hydrocephalus, territorial ischemia or abnormal extra-axial collection. Involutional changes. Mild white matter hypodensities suggest chronic microvascular ischemic disease. Unchanged asymmetric dilation involving the atria and posterior horn right lateral ventricle. The calvarium is intact. Unchanged lucent foci of the calvarium. Trace mastoid effusions. The paranasal sinuses are clear. Unremarkable soft tissues. Prior bilateral lens repair. IMPRESSION: No acute intracranial abnormality. ACT 112: Negative or not required by law. The above report was generated using voice recognition software. It may contain grammatical, syntax or spelling errors. Electronically signed by: Antony Miller M.D. 12/08/2021 12:52 PM ECG Data Attestation: I personally reviewed and interpreted this ECG as follows: Indication: + chest pain, + SOB/dyspnea and + weakness Rate (beats per minute): 51 Rhythm: + sinus bradycardia ECG Intervals/blocks: + Normal QRS, + Normal QT and + Normal VT ECG Virgil: + Normal ECG ST segments: + Normal ST segments ECG Findings: no PACs or no PVCs Comparison ECG Date: from (10/29/20) Change: no significant change MDM Narrative This patient comes in as described above. She was placed on a monitor and storage bin tender room B7. She is here for treatment and evaluation of lower extremity edema. She has increased her Lasix from 40mg to 80mg and despite this she continues to have lower extremity edema to the point where its been seeping. She is followed by the CHF clinic apparently. She is also on blood thinner with Eliquis for chronic A. fib and she apparently has had some GI blood loss that they are evaluate her for as well. In light of this, an extensive work-up was done IV access was established and she was placed on a monitor and storage bin tender EKG and chest x- ray were obtained. EKG does not suggest ischemic changes her troponin is not elevated. Chest x-ray does not show pulmonary edema. She has no significant electrolyte or metabolic abnormality. Her BNP is elevated consistent with CHF. She received Lasix 40 mg IV and is started diuresis with that. She started complain of a headache and given the fact that she is on Eliquis I did a CT of her head and also gave her some p.o. Tylenol. The CAT scan was unremarkable and she is feeling better in regards to her headache. Given the fact, that she has increased her Lasix as an outpatient and was not diuresing at home. I do think warrants admission/observation for IV diuresis and further evaluation. I have consulted Dr. Zachary Christy from the hospitalist group to see her in ER for these measures. Continuous cardiac monitoring: Order was placed in the EMR for continuous cardiac monitoring. Upon my interpretation she was in sinus bradycardia at a rate of 55. Impression & Plan CHF (congestive heart failure), Edema, peripheral, Current use of terminal operator anticoagulation, Weakness, Lab test negative for COVID-19 virus Discharge Plan Visit Data Chief Complaint: Leg Injury/Pain Stated Complaint: LEGS ARE SWOLLEN, LEAKAGE ED Provider: Rhett Aguirre Discharge Problem: CHF (congestive heart failure), Edema, peripheral, Current use of terminal operator anticoagulation, Weakness, Lab test negative for COVID-19 virus Forms Stand Alone Forms: My [facility] Prescriptions Prescriptions: No Action Eliquis 5 mg tablet 5 mg PO BID Qty: 180 3RF estradiol 0.075 mg/24 hr patch weekly 1 patch topical YARBROUGH Qty: 4 12RF Rx Instructions: Remove patch and apply one new patch every Monday pantoprazole 40 mg tablet,delayed release (DR/EC) 40 mg PO QAM Qty: 90 1RF Rx Instructions: 1/2 hour prior to breakfast PO daily; buspirone 5 mg tablet 5 mg PO TID Qty: 90 1RF nitroglycerin [Nitrostat] 0.4 mg tablet, sublingual 0.4 mg sublingual Q5M PRN (Reason: chest pain) Qty: 20 1RF Rx Instructions: 0.4 mg tablet under tongue every 5 minutes, up to a series of 3 tabs, as needed for chest discomfort. Sutab 1.479-0.188- 0.225 gram tablet 24 tab PO .COMPLEX Qty: 24 0RF Rx Instructions: 24 tabs orally; BIN: [id number] PCN: CN GROUP: [id number] memantine [Namenda] 10 mg tablet 10 mg PO BID Qty: 180 1RF rivastigmine tartrate 3 mg capsule 3 mg PO BID Qty: 180 1RF calcium carbonate [Calcium 600] 600 mg calcium (1,500 mg) Tablet 1,200 mg PO QAM cholecalciferol (vitamin D3) [Vitamin D3] 25 mcg (1,000 unit) Capsule 1,000 unit PO QAM docusate sodium 100 mg Capsule 300 mg PO QAM furosemide [Lasix] 40 mg tablet 40 mg PO QAM PRN (Reason: Edema) Rx Instructions: May take additional 40 mg once daily for increased swelling, wt gain, or shortness of breath. amiodarone 200 mg tablet 200 mg PO QAM rosuvastatin [Crestor] 40 mg tablet 40 mg PO HS cyanocobalamin (vitamin B-12) 1,000 mcg/15 mL Liquid 500 mcg PO DAILY Referrals Referrals: Sravan Figueroa MD [Primary Care Provider] - : CHF (congestive heart failure) Qualifiers: Heart failure type: unspecified Heart failure chronicity: acute on chronic Qualified Code(s): I50.9 - Heart failure, unspecified
--- NOTE | 2021-12-08 09:57 | XRay Report ---
XR chest 1V portable CLINICAL HISTORY: Atypical chest pain. COMPARISON STUDY: Chest radiograph October 29, 2021. FINDINGS: Proximal left humeral internal fixation and cardiac monitoring device are incidentally note d. Lung volumes are normal. Lungs are clear. There is no pneumothorax or pleural effusion. Cardiac si ze is normal. Mediastinal contours are normal. There is no evidence for pulmonary edema. IMPRESSION: No acute cardiopulmonary findings. ACT 112: Negative or not required by law. Electronically signed by: Kimani De M.D. 12/08/2021 9:56 AM
[2021-12-08 10:20] LABS: Basophils # (auto) 0.04 K/uL (0-0.2); Basophils % (auto) 0.7 %; Eosinophils # (auto) 0.04 K/uL (0-0.50); Eosinophils % (auto) 0.7 %; Hematocrit (blood only) 35.7 % (34.1-44.9); Hemoglobin 11.9 g/dl (12.0-16.0); Immature Granulocytes # (auto) 0.01 K/uL (0.00-0.02); Immature Granulocytes % (auto) 0.2 %; Lymphocytes # (auto) 1.97 K/uL (1.2-3.4); Lymphocytes % (auto) 34.3 %; Mean Corpuscular Hemoglobin 31.6 pg (25.0-34.0); Mean Corpuscular Hgb Conc 33.3 g/dL (32.0-36.0); Mean Corpuscular Volume 94.9 fL (80.0-100.0); Mean Platelet Volume 11.3 fL (9.4-12.3); Monocytes # (auto) 0.72 K/uL (0.24-0.82); Monocytes % (auto) 12.5 %; Neutrophils # (auto) 2.97 K/uL (1.4-6.5); Neutrophils % (auto) 51.6 %; Platelet Count 246 K/uL (130-400); RDW Coefficient of Variation 15.5 % (11.5-14.5); RDW Standard Deviation 53.9 fL (36.4-46.3); Red Blood Count 3.76 M/uL (3.93-5.22); White Blood Count 5.75 K/ul (4.8-10.8)
[2021-12-08 10:32] LABS: INR 1.1 (0.9-1.1); Partial Thromboplastin Ratio 1.1; Partial Thromboplastin Time 31.2 Seconds (21.0-31.0); Prothrombin Time 11.8 Seconds (9.0-12.0)
[2021-12-08 10:40] LABS: Albumin Globulin Ratio 1.5 (0.9-2); Albumin Level 4.3 gm/dl (3.4-5.0); BUN Creatinine Ratio 11.2 (10-20); Bilirubin,Total 0.6 mg/dl (0.2-1.0); Calcium 9.1 mg/dl (8.5-10.1); Est GFR (African American) 64.9 ml/min; Globulin 2.9 gm/dl (2.5-4.0); Potassium 3.5 mmol/L (3.5-5.1); Total Protein 7.2 gm/dl (6.0-8.3)
[2021-12-08 10:43] LABS: Troponin I High Sensitivity 6.8 pg/ml (0-14)
[2021-12-08] MEDS ORDERED: FUROSEMIDE 40 MG/4 ML VIAL IV ONE (11:53)
[2021-12-08] MEDS ORDERED: ACETAMINOPHEN 325 MG TAB PO STA (11:56)
--- NOTE | 2021-12-08 12:53 | CT Scan Report ---
CT head/brain wo con CLINICAL HISTORY: 76 years-old Female with headache on anticoag. Chronic headache TECHNIQUE: Multiple axial CT images of the head were obtained without contrast. A dose lowering tech nique was utilized adhering to the principles of ALARA. CT DOSE: 537.48 mGy.cm COMPARISON: Brain MRI 10/29/2021, head CT 10/29/2021 FINDINGS: No acute intracranial hemorrhage, midline shift, intracranial mass, hydrocephalus, territorial ischem ia or abnormal extra-axial collection. Involutional changes. Mild white matter hypodensities suggest chronic microvascular ischemic disease. Unchanged asymmetric dilation involving the atria and posteri or horn right lateral ventricle. The calvarium is intact. Unchanged lucent foci of the calvarium. Trace mastoid effusions. The paranas al sinuses are clear. Unremarkable soft tissues. Prior bilateral lens repair. IMPRESSION: No acute intracranial abnormality. ACT 112: Negative or not required by law. The above report was generated using voice recognition software. It may contain grammatical, syntax o r spelling errors. Electronically signed by: Antony Miller M.D. 12/08/2021 12:52 PM
--- NOTE | 2021-12-08 13:39 | History & Physical Report ---
Date of Service December 08, 2021 Assessment & Plan (1) Fatigue: Plan: -Admit to med/surge -Patient is afebrile, hemodynamically stable, and stable on room air -The patient's weakness/fatigue is likely multifactorial including poor nutrition, deconditioning, chronic anemia and volume overload -No focal defects on exam, CT head negative for acute changes -Patient has a history of acute blood loss anemia and her PCP and hematology have been following, has had to receive blood transfusions and iron infusions in the recent past, Hgb is currently at baseline and no other signs of acute bleed -Will obtain TSH, mag, phos, B12, and folate levels -She would benefit from a nutrition consult and will also order PT/OT consults - Hold rivastigmine (2) Anemia: Plan: -Hgb currently at baseline -Is scheduled for colonoscopy and pill cam on 12/15, currently hemodynamically stable so do not think that the patient needs the workup while admitted (3) Bilateral lower extremity edema: Plan: -Patient with significant, bilateral pitting edema in the lower extremities -Had already increased her home dose from 40 mg PO daily to 80 mg daily starting last week without improvement -Swelling looks symmetrical and the result of venous stasis and heart failure -Patient already received 40 mg IV in the ED, will hourly caregiver another 40 mg IV tonight then contiue BID while admitted -Monitor I's & O's and q12h BMP while on IV lasix -JUAN stocking ordered -Right mac skin tear does not look as though it's developing cellulitis, has also been afebrile and without leukocytosis -Monitor for improvement with current therapy -Will obtain new TTE to monitor for worsening heart failure (4) Weight loss: Plan: -Daughter thinks she has had an approximately 30 pound weight loss over the past 6 months -Per history, it appears that the patient has had poor oral intake for some time, averaging 1 meal or less daily -Could consider a nutrition or brick pitcher consut before discharge (5) Atrial fibrillation status post cardioversion: Plan: -Continue CLINICAL DERMATOLOGIST eliquis, and amiodarone (6) Mild cognitive impairment: Plan: -CLINICAL DERMATOLOGIST Namenda - Hold rivastigmine for possible side effects (7) Sleep apnea: Plan: -Will order HS CPAP (8) Chronic diastolic CHF (congestive heart failure): Plan: -See LE swelling (9) CAD (coronary artery disease): Plan: -CLINICAL DERMATOLOGIST crestor Plan The patient was discussed with Dr. Christy at the time of admission History of Present Illness Chief Complaint: Lower extremity swelling and leaking Primary Care Provider: Sravan Figueroa MD Ximena is a 76 year old female with a PMH significant for afib on eliquis, HFpEF, mitral regurgitation, pulmonary hypertension, S/P implanted cardiac loop recorder, CAD, venous insufficiency, dyslipidemia, anemia, Early Dementia/mild cognitive impairment, and GERD who presented to the [facility] ED on 12/08/21 with a chief complaint of BL LE swelling and generalized weakness. In the ED the patient was found to be afebrile, hemodynamically stable, and stable on RA. Labs were significant for a BNP of 249. Head CT and CXR were negative for acute findings. The patient was given 40 mg IV lasix prior to my examination. At the time of the exam the patient was resting comfortably in bed in no acute distress with her daughter sitting bedside. They state that the patient has been experiencing progressive bilateral lower extremity swelling and generalized weakness over the past 3 weeks. She has baseline lower extremity swelling which is symmetrical and worsens throughout the day. She is typically on 40 mg PO lasix daily, wears compression socks, elevates her legs throughout the day, and tries to limit her sodium intake. Last week she increased her dose of lasix to 80 mg PO daily at the recommendation of her PCP in the past if her swelling gets bad. She does not think that the increased dose of lasix has helped her swelling. Her daughter states that she has had significant weight loss (approximately 30 lbs) over the past 6 months or so, for which her PCP is aware. When asked, the patient states that she typically only eats one meal daily and her daughter states that she has tried to get the patient to drink boost shakes but the patient is stubborn. Her daughter also states that the patient was seen by hematology recently for anemia, she has had to receive blood transfusions in October and had iron infusions in November. Her daughter states that the patient is supposed to have a colonoscopy and pill cam on the of this month to rule out sources of bleed. The patient denies any signs of dysuria or hematuria but states that some of her recent bowel movements have been "dark", she denies any bright red blood in her bowel movements or blood in the toilet bowel. Her daughter states that the patient is normally very active but she has been less active over the past month. 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 She lives at home and does not need the assistance of a walker or cane to ambulate. She has a chronic cough which she states has been a little worse lately, she have been producing white, frothy sputum with her cough. Her daughter is concerned that a previous skin tear in her left lower extremity is getting infected as it is warm and she thinks it was draining fluid last night. Allergies Allergy/AdvReac Type Severity Reaction Status Date / Time gluten Allergy Intermediate Celiac Verified 12/08/21 15:18 disease latex Allergy Mild Rash Verified 12/08/21 15:18 amoxicillin AdvReac Intermediate Yeast Verified 12/08/21 15:18 infection cefdinir AdvReac Intermediate nausea Verified 12/08/21 15:18 Cephalosporins AdvReac Intermediate Yeast Verified 12/08/21 15:18 infection clavulanic acid AdvReac Intermediate Yeast Verified 12/08/21 15:18 infection prednisone AdvReac Intermediate Anxiety Verified 12/08/21 15:18 Home Medications Medication Instructions Recorded Confirmed Type docusate sodium 100 mg capsule 300 mg PO QAM 04/15/18 12/08/21 History calcium carbonate 600 mg calcium 1,200 mg PO QAM 06/08/19 12/08/21 History (1,500 mg) tablet (Calcium) cholecalciferol (vitamin D3) 25 1,000 unit PO QAM 06/08/19 12/08/21 History mcg (1,000 unit) capsule (Vitamin D3) apixaban 5 mg tablet (Eliquis) 5 mg PO BID #180 tabs 10/08/20 12/08/21 Rx estradiol 0.075 mg/24 hr weekly 1 patch topical YARBROUGH #4 ea 02/10/21 12/08/21 Rx transdermal patch rosuvastatin 40 mg tablet (Crestor) 40 mg PO HS 03/19/21 12/08/21 History pantoprazole 40 mg tablet,delayed 40 mg PO QAM #90 tabs 06/30/21 12/08/21 Rx release buspirone 5 mg tablet 5 mg PO TID #90 tabs 09/03/21 12/08/21 Rx nitroglycerin 0.4 mg sublingual 0.4 mg sublingual Q5M PRN chest 09/25/21 12/08/21 Rx tablet (Nitrostat) pain #20 tabs memantine 10 mg tablet (Namenda) 10 mg PO BID #180 tabs 11/11/21 12/08/21 Rx sodium sul 1.479 gram-potas ch 24 tab PO .COMPLEX #24 tabs 11/11/21 12/08/21 Rx 0.188 gram-magnes sul 0.225 gram tablet (Sutab) amiodarone 200 mg tablet 200 mg PO QAM 12/03/21 12/08/21 History furosemide 40 mg tablet (Lasix) 40 mg PO QAM PRN Edema 12/03/21 12/08/21 History rivastigmine tartrate 3 mg capsule 3 mg PO BID #180 caps 12/03/21 12/08/21 Rx cyanocobalamin (vitamin B-12) 500 mcg PO DAILY 12/08/21 12/08/21 History 1,000 mcg/15 mL oral liquid Past Med/Surg History Medical History Acute blood loss anemia (ABLA) Acute hyponatremia Anemia RECEIVED 2 UNITS [facility] 04/2021 RECENT ADMISSION Atrial fibrillation Dx'ed 2019 Follows w/ Dr. Delacruz, on Eliquis CAD (coronary artery disease) Medically managed by cardiology NSTEMI 07/27/20- cath demonstrated small branch vessel disease involving small OM to, not amenable to intervention. CD (celiac disease) "Does not" follow gluten-free diet Chest pressure Degenerative disc disease Diastolic CHF Diverticulitis 2013 GI bleed reason for Endoscopy/REASON FOR COLONOSCOPY History of paroxysmal supraventricular tachycardia with atrial tachycardia Low back pain with sciatica Nausea & vomiting Non-ST elevation PR (NSTEMI) 07/27/20 Ocular migraine Sleep apnea CPAP Vertigo Surgical History History of arthroscopy of right shoulder RCR History of cardiac cath 2016, 07/28/20 ([place]) > no stents History of cardioversion x2, most recent 04/2019 History of carpal tunnel release R/L History of cataract surgery R/L History of cholecystectomy History of colonoscopy History of esophagogastroduodenoscopy (EGD) History of foot surgery R/L feet "to straighten toes" History of fracture of left shoulder Plate + screws History of hysterectomy JOANNA + BSO History of incision and drainage Right foot History of tonsillectomy History of total knee replacement Left x2, right x1 S/P transesophageal echocardiogram (JOHANA) Status post placement of implantable loop recorder Implanted 12/2019 - Follows Dr. Yoo Family History Mother Family hx of colon cancer Colorectal cancer Brother Prostate cancer Family history of diabetes mellitus Father Dissecting aortic aneurysm Myocardial infarction Grandmother (Maternal) Stroke Other No family history of adverse response to anesthesia Denies family history of Ovarian cancer Breast cancer Social History Smoking Status: Never smoker Tobacco Type: Cigarettes Age Started Using Tobacco: 19; Age Quit Using Tobacco: 27; packs per day: 0.25; Years Smoked: 8; Second Hand Exposure: No; Hx Alcohol Use: No Hx Substance Use: No Preferred Language: Spanish Communication Ability: Effective Kiln Stacker Required: No Beliefs That Will Affect Care: None marital status: Current Living Situation: Alone Current Living Situation Comment: just left her 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 All systems have been reviewed and are otherwise negative. Physical Exam Physical Exam: Physical Exam: General: In no acute distress, stated age, malnourished, chronically ill- appearing HEENT: Normocephalic, atraumatic, no scleral icterus, pupils around round, symmetrical, and reactive to light, moist mucus membranes, trachea midline, no thyromegaly Chest/Pulm: No respiratory distress, symmetrical chest expansion, clear breath sounds throughout Cardiac: RRR, no murmurs noted Abdomen: Negative for ascites and bruising, normoactive bowel sounds, soft, non-tender to palpation throughout Musculoskeletal: Symmetrical and without signs of acute trauma, upper and lower extremities with full ROM, no atrophy, spasticity, or flaccidity, patient with symmetrical decreased keeper helper strength in the hands due to arthritis Extremities: Radial, dorsalis pedis, and posterior tibial pulses are intact and symmetrical, +3 pitting edema in the BL lower extremities Skin: patient with a healing skin tear on the right mac with minimal erythe ma around the border, no circumferential erythema to indicate cellulitis, no current drainage Neuro: Alert and oriented to person, place, month, year, and president, no focal defects, CN II-XII tested and intact, finger to nose test negative, no tremors noted Psych: No acute distress, calm and cooperative during the exam Results & Data Results & Data ([facility]) Vital Signs (Past 12 Hours) Vital Signs Temp Pulse Pulse Resp BP BP Pulse Ox 12/08/21 11:52 58 L 20 145/59 H 100 12/08/21 10:29 55 L 20 118/62 97 12/08/21 10:20 12/08/21 09:15 36.7 C 55 L 20 117/50 L 96 O2 Del Method 12/08/21 11:52 Room Air 12/08/21 10:29 Room Air 12/08/21 10:20 Room Air 12/08/21 09:15 Room Air Laboratory Results Abnormal lab results 12/08/21 12/08/21 12/08/21 Range/Units 09:45 09:45 09:45 RBC 3.76 L (3.93-5.22) M/uL Hgb 11.9 L (12.0-16.0) g/dl RDW Std Deviation 53.9 H (36.4-46.3) fL RDW Coeff of Malinda 15.5 H (11.5-14.5) % APTT 31.2 H (21.0-31.0) Seconds Carbon Dioxide 34 H (21-32) mmol/L B-Natriuretic Peptide (0-100) pg/ml Lipase 9 L (11-82) U/L 12/08/21 Range/Units 09:45 RBC (3.93-5.22) M/uL Hgb (12.0-16.0) g/dl RDW Std Deviation (36.4-46.3) fL RDW Coeff of Malinda (11.5-14.5) % APTT (21.0-31.0) Seconds Carbon Dioxide (21-32) mmol/L B-Natriuretic Peptide 249 H (0-100) pg/ml Lipase (11-82) U/L Diagnostic Findings Chest X-Ray 12/08/21 09:31 XR chest 1V portable CLINICAL HISTORY: Atypical chest pain. COMPARISON STUDY: Chest radiograph October 29, 2021. FINDINGS: Proximal left humeral internal fixation and cardiac monitoring device are incidentally noted. Lung volumes are normal. Lungs are clear. There is no pneumothorax or pleural effusion. Cardiac size is normal. Mediastinal contours are normal. There is no evidence for pulmonary edema. IMPRESSION: No acute cardiopulmonary findings. ACT 112: Negative or not required by law. Electronically signed by: Kimani De M.D. 12/08/2021 9:[address] 12/08/21 11:53 CT head/brain wo con CLINICAL HISTORY: 76 years-old Female with headache on anticoag. Chronic headache TECHNIQUE: Multiple axial CT images of the head were obtained without contrast. A dose lowering technique was utilized adhering to the principles of ALARA. CT DOSE: 537.48 mGy.cm COMPARISON: Brain MRI 10/29/2021, head CT 10/29/2021 FINDINGS: No acute intracranial hemorrhage, midline shift, intracranial mass, hydrocephalus, territorial ischemia or abnormal extra-axial collection. Involutional changes. Mild white matter hypodensities suggest chronic microvascular ischemic disease. Unchanged asymmetric dilation involving the atria and posterior horn right lateral ventricle. The calvarium is intact. Unchanged lucent foci of the calvarium. Trace mastoid effusions. The paranasal sinuses are clear. Unremarkable soft tissues. Prior bilateral lens repair. IMPRESSION: No acute intracranial abnormality. ACT 112: Negative or not required by law. The above report was generated using voice recognition software. It may contain grammatical, syntax or spelling errors. Electronically signed by: Antony Miller M.D. 12/08/2021 12:52 PM ECG Additional Comments: Poor data quality, interpretation may be adversely affected Sinus bradycardia Otherwise normal ECG When compared with ECG of 29-OCT-2021 06:35, No significant change was found Code Status & VTE Plan Code Status Full Code VTE Prophylaxis Plan VTE Prophylaxis will be ordered: Yes Supervising Physician Co-Signing Physician Notes I supervised Cirilo Sosa PA-C on this admission. I interviewed and examined the patient independently of him. The plan is as written in his note except for any following changes/exceptions: None 76yo F w/ hx of CHF who presents with increased fatigue. The patient has been experiencing some increased LE swelling as well. Had increased the dose about 1 week ago at her PCP's instruction, but she does not feel it has helped. Has also had some issues with anemia, and has plans for EGD and pill camera as outpa tient. LEs do have significant edema. Plan for diuresis and monitoring of anemia. Will also hold rivastigmine as this was started around the time of her symptoms and may be contributing to her poor appetite. PG Care Time/CCT Total # of Minutes Spent Total Time Spent with Patient: Total time spent is greater than 50% in coordination of care (as documented) at patient's floor/unit and/or counseling patient: C[place] [address] Initial Inpt Care Lvl 3 Patient Type Established Medical Decision Making Moderate Complexity Diagnoses Fatigue R53.83 Anemia D64.9 Bilateral lower extremity edema R60.0 Weight loss R63.4 Atrial fibrillation status post cardioversion I48.91 Mild cognitive impairment G31.84 Sleep apnea G47.30 Chronic diastolic CHF (congestive heart failure) I50.32 CAD (coronary artery disease) I25.10
[2021-12-08 14:58] LABS: Magnesium 2.3 mg/dl (1.7-2.4); Phosphorus 3.8 mg/dl (2.5-4.9)
--- NOTE | 2021-12-08 16:33 | XCELERA ---
[id number]
[2021-12-08 18:39] LABS: Calcium 8.7 mg/dl (8.5-10.1); Est GFR (African American) 63.4 ml/min; Est GFR (Non-African American) 54.7 ml/min; Potassium 3.2 mmol/L (3.5-5.1)
[2021-12-08] MEDS: BACITRACIN OINT 15 GM TUBE EXT SCH ×2 (18:59→20:41)
[2021-12-08 19:11] LABS: Vitamin B12 828 pg/ml (180-914)
[2021-12-08 19:12] LABS: Folate (Folic Acid) > 22.30 ng/ml (>5.38)
[2021-12-08] MEDS: busPIRone 5 MG TAB PO SCH (20:37)
[2021-12-08] MEDS: APIXABAN 5 MG TABLET PO SCH (20:38)
[2021-12-08] MEDS: MEMANTINE HCL 10 MG TAB PO SCH (20:38)
[2021-12-08] MEDS: ROSUVASTATIN CALCIUM 20 MG TAB PO SCH (20:39)
[2021-12-08] MEDS: ACETAMINOPHEN 325 MG TAB PO PRN (20:40)
[2021-12-08] MEDS: FUROSEMIDE 40 MG/4 ML VIAL IV SCH (20:41)
[2021-12-08] MEDS ORDERED: RIVASTIGMINE TARTRATE 1.5 MG CAP PO SCH (21:00)
[2021-12-09 06:53] LABS: Hematocrit (blood only) 31.4 % (34.1-44.9); Hemoglobin 10.8 g/dl (12.0-16.0); Mean Corpuscular Hemoglobin 31.8 pg (25.0-34.0); Mean Corpuscular Hgb Conc 34.4 g/dL (32.0-36.0); Mean Corpuscular Volume 92.4 fL (80.0-100.0); Mean Platelet Volume 11.6 fL (9.4-12.3); Platelet Count 215 K/uL (130-400); RDW Coefficient of Variation 15.7 % (11.5-14.5); RDW Standard Deviation 52.6 fL (36.4-46.3); White Blood Count 5.31 K/ul (4.8-10.8)
[2021-12-09 08:02] LABS: Calcium 8.3 mg/dl (8.5-10.1); Creatinine Clr Calc Pharmacy 53.8 ml/min; Est GFR (African American) 69.2 ml/min; Est GFR (Non-African American) 59.7 ml/min; Potassium 3.5 mmol/L (3.5-5.1)
--- NOTE | 2021-12-09 08:21 | Hospitalist Progress Note ---
Date of Service December 09, 2021 Assessment & Plan (1) Fatigue: Plan: weakness/fatigue is likely multifactorial including poor nutrition, deconditioning, chronic anemia -No focal defects on exam, CT head negative for acute changes -Patient has a history of acute blood loss anemia and her PCP and hematology have been following, has had to receive blood transfusions and iron infusions in the recent past, Hgb is currently at baseline and no other signs of acute bleed - TSH, mag, phos, B12, and folate all normal range -nutritional parameters are also in range PT/OT consults - Hold rivastigmine (2) Anemia: Plan: -Hgb currently at baseline -Is scheduled for colonoscopy and pill cam on 12/15, currently hemodynamically stable so do not think that the patient needs the workup while admitted (3) Bilateral lower extremity edema: Plan: -Patient with significant, bilateral pitting edema in the lower extremities -Had already increased her home dose of lasix from 40 mg PO daily to 80 mg daily starting last week without improvement -Swelling looks symmetrical and the result of venous stasis and heart failure preserved Ejection fraction echo with preserved EF lasix 40 mg iv BID -JUAN stocking ordered -Right mac skin tear (4) Weight loss: Plan: -Daughter thinks she has had an approximately 30 pound weight loss over the past 6 months -Per history, it appears that the patient has had poor oral intake for some time, averaging 1 meal or less daily, despite that albumin and protein are normal - ct chest abdomen and pelvis do not see any suspicious lesions or masses or issues to create delayed lymphatic or venous return to LE (5) Atrial fibrillation status post cardioversion: Plan: -Continue MESSENGER FLOORPERSON eliquis, and amiodarone (6) Mild cognitive impairment: Plan: -MESSENGER FLOORPERSON Namenda - Hold rivastigmine for possible side effects (7) Sleep apnea: Plan: -Will order HS CPAP (8) Chronic diastolic CHF (congestive heart failure): Plan: -See LE swelling (9) CAD (coronary artery disease): Plan: -MESSENGER FLOORPERSON crestor Admission and Anticipated Discharge Date Admission Date: December 08, 2021 Subjective pt has no complaints, reportedly had weight loss according to daughter, it was communicated that her nutritional labs are good at this point Review of Systems Review of Systems: Mild distress and fatigue no headache, no visual changes no speech or swallowing issues no chest pain, pressure or palpitations no shortness of breath, cough or wheezes no abdominal pain, nausea or vomiting, diarrhea or constipation no dysuria, hematuria or frequency no focal joint pain or swelling no back pain, CVA tenderness or radicular pain no bruising, bleeding or rashes no focal signs of weakness or numbness or altered sensation no complaints of anxiety or depression.. Results & Data Results & Data ([facility]) Vital Signs (Past 12 Hours) Vital Signs Temp Pulse Pulse Resp BP Pulse Ox O2 Del Method 12/09/21 08:02 97.7 F 60 16 122/67 99 Room Air 12/08/21 21:45 Room Air 12/08/21 21:42 97.3 F L 18 139/58 L 100 Room Air 12/08/21 20:59 50 L 18 122/78 PG Care Time/CCT Total # of Minutes Spent Total Time Spent with Patient: Total time spent is greater than 50% in coordination of care (as documented) at patient's floor/unit and/or counseling patient: Coding Level of Care Code 55754 Subseq Hosp Care Lvl 2 Diagnoses Fatigue R53.83 Anemia D64.9 Bilateral lower extremity edema R60.0 Weight loss R63.4 Atrial fibrillation status post cardioversion I48.91 Mild cognitive impairment G31.84 Sleep apnea G47.30 Chronic diastolic CHF (congestive heart failure) I50.32 CAD (coronary artery disease) I25.10
[2021-12-09] MEDS: APIXABAN 5 MG TABLET PO SCH ×2 (08:31→21:02)
[2021-12-09] MEDS: FUROSEMIDE 40 MG/4 ML VIAL IV SCH (08:32)
[2021-12-09] MEDS: busPIRone 5 MG TAB PO SCH ×3 (08:32→21:01)
[2021-12-09] MEDS: AMIODARONE 200 MG TAB PO SCH (08:32)
[2021-12-09] MEDS: MEMANTINE HCL 10 MG TAB PO SCH ×2 (08:32→21:01)
[2021-12-09] MEDS: PANTOprazole 40 MG TAB PO SCH (08:32)
[2021-12-09] MEDS: BACITRACIN OINT 15 GM TUBE EXT SCH ×2 (08:33→21:02)
--- NOTE | 2021-12-09 10:07 | Electrocardiogram Report ---
Test Reason : Blood Pressure : / mmHG Vent. Rate : 051 BPM Atrial Rate : 051 BPM P-R Int : 178 ms QRS Dur : 094 ms QT Int : 504 ms P-R-T Axes : 070 047 058 degrees QTc Int : 464 ms Poor data quality, interpretation may be adversely affected Sinus bradycardia Nonspecific T wave abnormality When compared with ECG of 29-OCT-2021 06:35, No significant change was found Confirmed by Santino Delacruz ([id number]) on 12/09/2021 10:07:16 AM Referred By: REFERRED SELF Confirmed By:Santino Delacruz
[2021-12-09] MEDS: ACETAMINOPHEN 325 MG TAB PO PRN (13:17)
--- NOTE | 2021-12-09 17:11 | CT Scan Report ---
CT SCAN OF THE CHEST, ABDOMEN, AND PELVIS WITHOUT IV CONTRAST CLINICAL HISTORY: Unintended weight loss. Generalized weakness. COMPARISON STUDY: Chest CT dated 09/19/2019. Abdominal CT dictated 04/18/2021. TECHNIQUE: Unenhanced CT scan of the chest, abdomen, and pelvis was performed from the thoracic inlet to the proximal femora. Images are reviewed in the axial, sagittal, and coronal planes. IV contrast was not administered for this examination. Note that the examinations is suboptimal without IV contra st. Oral contrast was utilized. A dose lowering technique was utilized adhering to the principles of ALARA. CT DOSE: 556.90 mGy.cm FINDINGS: CHEST: Thyroid: Imaged portions of the thyroid gland are normal in size and attenuation. Thoracic aorta: The thoracic aorta is normal in caliber and demonstrates standard 3-vessel arch anato my. Heart: The heart is normal in size and without pericardial effusion. There are coronary artery calcif ications. There is diminished attenuation of the cardiac blood pool as compared to the myocardium sug gesting anemia. Lungs and pleural spaces: There is no airspace consolidation typical for pneumonia or pleural effusio n. There are scattered calcified granulomas. The trachea and central airways are clear. A fat-contain ing Bochdalek hernia is noted on the left. Mediastinum: There is no mediastinal lymphadenopathy. Dunia: Not well assessed without IV contrast. Axillae: There is no axillary lymphadenopathy. Bony thorax: The skeletal structures are osteopenic. Degenerative change and mild hyperkyphosis is no amelia in the thoracic spine. No lytic or blastic lesions are identified. Postsurgical change is noted i n the left humeral head. Soft tissues: An implanted device is present within the left ventral chest wall. ABDOMEN AND PELVIS: Liver: The unenhanced liver is normal in size, contour, and attenuation. There is no intrahepatic linnea iary ductal dilatation. Gallbladder: Surgically absent noting clips in the gallbladder fossa. Spleen: Normal in size and attenuation. Pancreas: The unenhanced pancreas is atrophic and grossly unremarkable. Adrenal glands: Unremarkable. Kidneys: The unenhanced kidneys demonstrate mild cortical atrophy and are without hydronephrosis. No renal calculi are identified. There is no evidence of contour deforming mass lesion. Abdominal vasculature: The abdominal aorta is normal in course and caliber. Bowel: There is moderate sigmoid diverticulosis without CT evidence of acute diverticulitis. No bowel obstruction is seen. Enteric contrast reaches the cecum. Moderate fecal retention is noted throughou t the colon. The appendix is not visualized. Peritoneum: There is no intraperitoneal free air or abdominal ascites. Lymphadenopathy: None. Pelvic viscera: The bladder is decompressed and not well assessed. The uterus is surgically absent. N o adnexal lesion is seen. Skeletal structures: The skeletal structures are osteopenic. There is mild lumbosacral spondylosis. N o lytic or blastic lesions are seen. IMPRESSION: 1. There is no airspace consolidation or pleural effusion. 2. No acute infectious or inflammatory findings are seen in the abdomen or pelvis. 3. Sigmoid diverticulosis without CT evidence of acute diverticulitis. 4. Colonic fecal retention. 5. Findings suggest anemia. 6. Additional findings as above. ACT 112: Negative or not required by law. Electronically signed by: Michael Smith M.D. 12/09/2021 5:09 PM
[2021-12-09 18:38] LABS: BUN Creatinine Ratio 10.9 (10-20); Calcium 8.5 mg/dl (8.5-10.1); Creatinine Clr Calc Pharmacy 45.5 ml/min; Est GFR (African American) 56.5 ml/min; Est GFR (Non-African American) 48.7 ml/min; Potassium 3.8 mmol/L (3.5-5.1)
[2021-12-09] MEDS: ROSUVASTATIN CALCIUM 20 MG TAB PO SCH (21:01)
[2021-12-10 06:23] LABS: Hemoglobin 10.8 g/dl (12.0-16.0); Mean Corpuscular Hemoglobin 31.8 pg (25.0-34.0); Mean Corpuscular Hgb Conc 34.8 g/dL (32.0-36.0); Mean Corpuscular Volume 91.2 fL (80.0-100.0); Platelet Count 211 K/uL (130-400); RDW Coefficient of Variation 15.3 % (11.5-14.5); RDW Standard Deviation 51.4 fL (36.4-46.3); White Blood Count 6.84 K/ul (4.8-10.8)
[2021-12-10 06:49] LABS: BUN Creatinine Ratio 11.5 (10-20); Calcium 8.2 mg/dl (8.5-10.1); Creatinine Clr Calc Pharmacy 48.1 ml/min; Est GFR (African American) 60.4 ml/min; Est GFR (Non-African American) 52.1 ml/min; Potassium 3.6 mmol/L (3.5-5.1)
[2021-12-10] MEDS: MEMANTINE HCL 10 MG TAB PO SCH (08:46)
[2021-12-10] MEDS: APIXABAN 5 MG TABLET PO SCH (08:46)
[2021-12-10] MEDS: busPIRone 5 MG TAB PO SCH ×2 (08:47→14:32)
[2021-12-10] MEDS: AMIODARONE 200 MG TAB PO SCH (08:47)
[2021-12-10] MEDS: PANTOprazole 40 MG TAB PO SCH (08:47)
[2021-12-10] MEDS: BACITRACIN OINT 15 GM TUBE EXT SCH (08:49)
[2021-12-10] MEDS ORDERED: FUROSEMIDE 40 MG/4 ML VIAL IV SCH (09:00)
--- NOTE | 2021-12-10 09:56 | Hospitalist Progress Note ---
Date of Service December 10, 2021 Assessment & Plan (1) Fatigue: Plan: weakness/fatigue is likely multifactorial including poor nutrition, deconditioning, chronic anemia -No focal defects on exam, CT head negative for acute changes -Patient has a history of acute blood loss anemia and her PCP and hematology have been following, has had to receive blood transfusions and iron infusions in the recent past, Hgb is currently at baseline and no other signs of acute bleed - TSH, mag, phos, B12, and folate all normal range -nutritional parameters are also in range PT/OT consults - Hold rivastigmine (2) Anemia: Plan: -Hgb currently at baseline -Is scheduled for colonoscopy and pill cam on 12/15, currently hemodynamically stable so do not think that the patient needs the workup while admitted (3) Bilateral lower extremity edema: Plan: -Patient with significant, bilateral pitting edema in the lower extremities -Had already increased her home dose of lasix from 40 mg PO daily to 80 mg daily starting last week without improvement -Swelling looks symmetrical and the result of venous stasis and acute on chronic heart failure preserved Ejection fraction echo with preserved EF lasix 40 mg iv BID -JUAN stocking ordered -Right mac skin tear (4) Weight loss: Plan: -Daughter thinks she has had an approximately 30 pound weight loss over the past 6 months -Per history, it appears that the patient has had poor oral intake for some time, averaging 1 meal or less daily, despite that albumin and protein are normal - ct chest abdomen and pelvis do not see any suspicious lesions or masses or issues to create delayed lymphatic or venous return to LE (5) Atrial fibrillation status post cardioversion: Plan: -Continue WOOD HEEL FINISHER eliquis, and amiodarone (6) Mild cognitive impairment: Plan: -WOOD HEEL FINISHER Namenda - Hold rivastigmine for possible side effects (7) Sleep apnea: Plan: -Will order HS CPAP (8) Chronic diastolic CHF (congestive heart failure): Plan: -See LE swelling (9) CAD (coronary artery disease): Plan: -WOOD HEEL FINISHER crestor Admission and Anticipated Discharge Date Admission Date: December 08, 2021 Results & Data Results & Data ([facility]) Vital Signs (Past 12 Hours) Vital Signs Temp Pulse Resp BP Pulse Ox O2 Del Method 12/10/21 08:42 54 L 127/72 12/10/21 07:17 97.5 F L 51 L 14 108/64 97 Room Air 12/09/21 23:24 97.5 F L 57 L 18 166/74 H 97 Room Air PG Care Time/CCT Total # of Minutes Spent Total Time Spent with Patient: Total time spent is greater than 50% in coordination of care (as documented) at patient's floor/unit and/or counseling patient: Coding Diagnoses Fatigue R53.83 Anemia D64.9 Bilateral lower extremity edema R60.0 Weight loss R63.4 Atrial fibrillation status post cardioversion I48.91 Mild cognitive impairment G31.84 Sleep apnea G47.30 Chronic diastolic CHF (congestive heart failure) I50.32 CAD (coronary artery disease) I25.10
--- NOTE | 2021-12-10 17:56 | Discharge Summary ---
Date of Service December 10, 2021 Admission HPI Per Admitting Provider Ximena is a 76 year old female with a PMH significant for afib on eliquis, HFpEF, mitral regurgitation, pulmonary hypertension, S/P implanted cardiac loop recorder, CAD, venous insufficiency, dyslipidemia, anemia, Early Dementia/mild cognitive impairment, and GERD who presented to the [facility] ED on 12/08/21 with a chief complaint of BL LE swelling and generalized weakness. In the ED the patient was found to be afebrile, hemodynamically stable, and stable on RA. Labs were significant for a BNP of 249. Head CT and CXR were negative for acute findings. The patient was given 40 mg IV lasix prior to my examination. At the time of the exam the patient was resting comfortably in bed in no acute distress with her daughter sitting bedside. They state that the patient has been experiencing progressive bilateral lower extremity swelling and generalized weakness over the past 3 weeks. She has baseline lower extremity swelling which is symmetrical and worsens throughout the day. She is typically on 40 mg PO lasix daily, wears compression socks, elevates her legs throughout the day, and tries to limit her sodium intake. Last week she increased her dose of lasix to 80 mg PO daily at the recommendation of her PCP in the past if her swelling gets bad. She does not think that the increased dose of lasix has helped her swelling. Her daughter states that she has had significant weight loss (approximately 30 lbs) over the past 6 months or so, for which her PCP is aware. When asked, the patient states that she typically only eats one meal daily and her daughter states that she has tried to get the patient to drink boost shakes but the patient is stubborn. Her daughter also states that the patient was seen by hematology recently for anemia, she has had to receive blood transfusions in October and had iron infusions in November. Her daughter states that the patient is supposed to have a colonoscopy and pill cam on the of this month to rule out sources of bleed. The patient denies any signs of dysuria or h ematuria but states that some of her recent bowel movements have been "dark", she denies any bright red blood in her bowel movements or blood in the toilet bowel. Her daughter states that the patient is normally very active but she has been less active over the past month. 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 She lives at home and does not need the assistance of a walker or cane to ambulate. She has a chronic cough which she states has been a little worse lately, she have been producing white, frothy sputum with her cough. Her daughter is concerned that a previous skin tear in her left lower extremity is getting infected as it is warm and she thinks it was draining fluid last night. Principal Diagnosis fatigue weight loss (subjectivley) early dementia Discharge Exam The patient appeared stable, the patient's BMI is low normal but she does not appear underweight Vital signs as documented. Lungs are clear to auscultation and appear unlabored Cardiac exam, Rhythm is regular.. No murmurs, rubs or gallops. Abdominal exam reveals normal bowel sounds, soft non tender, no masses Extremities are nonedematous and both pedal pulses are normal. Neurologic exam is alert and oriented, no focal loss of strength or sensation Skin is without bruises or rashes Psychologically is with concerns for some memory impairment Discharge Data Allergies Allergy/AdvReac Type Severity Reaction Status Date / Time gluten Allergy Intermediate Celiac Verified 12/08/21 15:18 disease latex Allergy Mild Rash Verified 12/08/21 15:18 amoxicillin AdvReac Intermediate Yeast Verified 12/08/21 15:18 infection cefdinir AdvReac Intermediate nausea Verified 12/08/21 15:18 Cephalosporins AdvReac Intermediate Yeast Verified 12/08/21 15:18 infection clavulanic acid AdvReac Intermediate Yeast Verified 12/08/21 15:18 infection prednisone AdvReac Intermediate Anxiety Verified 12/08/21 15:18 Consultations 12/08/21 13:33 ED Decision to Admit Stat Ordered Studies 12/08/21 11:53 CT head/brain wo con Stat 12/09/21 14:37 CT Abd and Pelvis [CT abd pelvis oral con only] Routine CT chest diagnostic wo con Routine Hospital Course (1) Fatigue: weakness/fatigue is likely multifactorial including poor nutrition, deconditioning, chronic anemia -No focal defects on exam, CT head negative for acute changes -Patient has a history of acute blood loss anemia and her PCP and hematology have been following, has had to receive blood transfusions and iron infusions in the recent past, Hgb is currently at baseline and no other signs of acute bleed - TSH, mag, phos, B12, and folate all normal range -nutritional parameters are also in range PT/OT consults suggest good perfromane - resume rivastigmine (2) Anemia: -Hgb currently at baseline -Is scheduled for colonoscopy and pill cam on 12/15, currently hemodynamically stable so do not think that the patient needs the workup while admitted (3) Bilateral lower extremity edema: -Patient with significant, bilateral pitting edema in the lower extremities -Had already increased her home dose of lasix from 40 mg PO daily to 80 mg daily starting last week without improvement -Swelling looks symmetrical and the result of venous stasis and acute on chronic heart failure preserved Ejection fraction echo with preserved EF (4) Weight loss: -Daughter thinks she has had an approximately 30 pound weight loss over the past 6 months -Per history, it appears that the patient has had poor oral intake for some time, averaging 1 meal or less daily, despite that albumin and protein are normal - ct chest abdomen and pelvis do not see any suspicious lesions or masses or issues to create delayed lymphatic or venous return to LE (5) Atrial fibrillation status post cardioversion: -Continue VALIDATION ENGINEER eliquis, and amiodarone (6) Mild cognitive impairment: -VALIDATION ENGINEER Namenda - continue rivastigmine for possible side effects (7) Sleep apnea: -Will order HS CPAP (8) Chronic diastolic CHF (congestive heart failure): -See LE swelling (9) CAD (coronary artery disease): -VALIDATION ENGINEER crestor Total Time Total Time Spent Total Time Spent (In Minutes): It required greater than 30 minutes to prepare this patient for discharge Discharge Plan Discharge Items Patient Disposition: Home - Self-Care Reason For Visit: LOWER EXTREMITY SWELLING Discharge Diagnosis: lower extremity swelling decreased appetite weight loss Activity: Resume your previous activity Non-emergency contact: Primary Care Provider Call non-emergency contact if: your symptoms worsen Follow-up/Referrals: Pro,Sravan Diaz MD [Primary Care Provider] - 12/17/21 9:00 am Donna Amado PA-C [Physician [employer]] - 12/23/21 10:30 am Diet: Regular Diet Comment: offer what ever is most appetizing to her, consider [place] instant bf Addtl Attending Provider Instructions: please continue to brainstorm things that this pt wants to eat and follow up with family doctor Pending Studies at Discharge: No Stand-Alone Forms: My [facility], Smoking Cessation Medications and DC Order Prescriptions: Continued Eliquis 5 mg tablet 5 mg PO BID Qty: 180 3RF estradiol 0.075 mg/24 hr patch weekly 1 patch topical YARBROUGH Qty: 4 12RF Rx Instructions: Remove patch and apply one new patch every Monday pantoprazole 40 mg tablet,delayed release (DR/EC) 40 mg PO QAM Qty: 90 1RF Rx Instructions: 1/2 hour prior to breakfast PO daily; buspirone 5 mg tablet 5 mg PO TID Qty: 90 1RF nitroglycerin [Nitrostat] 0.4 mg tablet, sublingual 0.4 mg sublingual Q5M PRN (Reason: chest pain) Qty: 20 1RF Rx Instructions: 0.4 mg tablet under tongue every 5 minutes, up to a series of 3 tabs, as needed for chest discomfort. Sutab 1.479-0.188- 0.225 gram tablet 24 tab PO .COMPLEX Qty: 24 0RF Rx Instructions: 24 tabs orally; BIN: [id number] PCN: CN GROUP: [id number] memantine [Namenda] 10 mg tablet 10 mg PO BID Qty: 180 1RF rivastigmine tartrate 3 mg capsule 3 mg PO BID Qty: 180 1RF calcium carbonate [Calcium 600] 600 mg calcium (1,500 mg) Tablet 1,200 mg PO QAM cholecalciferol (vitamin D3) [Vitamin D3] 25 mcg (1,000 unit) Capsule 1,000 unit PO QAM docusate sodium 100 mg Capsule 300 mg PO QAM furosemide [Lasix] 40 mg tablet 40 mg PO QAM PRN (Reason: Edema) Rx Instructions: May take additional 40 mg once daily for increased swelling, wt gain, or shortness of breath. amiodarone 200 mg tablet 200 mg PO QAM rosuvastatin [Crestor] 40 mg tablet 40 mg PO HS cyanocobalamin (vitamin B-12) 1,000 mcg/15 mL Liquid 500 mcg PO DAILY Discharge Orders: Discharge Order (Routine); Ordered 12/10/21 Ordered By: Ismael Stokes/Other Patient Handouts: Coping with Heart Failure Admission Data Admit Date/Time: 12/08/21 14:05 Attending Provider: Ismael Lawrence Admit Provider: Zachary Christy Primary Care Provider: Sravan Figueroa Other Providers: Zachary Christy ; [place] Other Interventions: Discharge Summary Assessment (RN) Last Done: 12/10/21 17:13 Coding Level of Care Code D/C DAY MANAGEMENT >30 MINS Diagnoses Fatigue R53.83 Anemia D64.9 Bilateral lower extremity edema R60.0 Weight loss R63.4 Atrial fibrillation status post cardioversion I48.91 Mild cognitive impairment G31.84 Sleep apnea G47.30 Chronic diastolic CHF (congestive heart failure) I50.32 CAD (coronary artery disease) I25.10
== END 2021-12-10 18:02 | disposition home health service (06) | DRG 948 ==
LOC: ED 09:06 → SUATTDRO 14:05 → EDINP 14:05 → 3E 21:25

== ENCOUNTER 2022-03-03 07:52 | Observation (INO) ==
[2022-03-03 08:52] LABS: Hematocrit (blood only) 31.5 % (34.1-44.9); Hemoglobin 10.7 g/dl (12.0-16.0); Mean Corpuscular Hemoglobin 32.3 pg (25.0-34.0); Mean Corpuscular Volume 95.2 fL (80.0-100.0); Platelet Count 179 K/uL (130-400); RDW Coefficient of Variation 14.1 % (11.5-14.5); RDW Standard Deviation 49.3 fL (36.4-46.3); Red Blood Count 3.31 M/uL (3.93-5.22); White Blood Count 6.95 K/ul (4.8-10.8)
--- NOTE | 2022-03-03 08:55 | Emergency Department Note ---
Impression & Plan Hypoxia, Chest pain Admit to the [facility] ED Provider Note NAME: SPARKLE BROWN AGE: 76 SEX: F ARRIVES VIA: Ambulance INFORMANT: Patient her daughter ED PROVIDER(S): Concepción Chong DO CHIEF COMPLAINT: Lethargy and chest pressure PLAN: Disposition: Admit to the [facility] Condition: Stable MEDICAL DECISION MAKING: This is a 76-year-old female patient presents emergency department from home with lethargy and chest pressure. Patient was noted to have an O2 saturation of 74% on room air here in the emergency department. She did appear lethargic. The patient has significant lower extremity edema which is somewhat more than usual for her. She describes having chest pressure and pain last night that is subsided at this time. Chest x-ray does not show evidence of significant pulmonary edema. The patient is hemodynamically stable at this time on supplemental oxygen. Triage Nursing notes reviewed and agree with them. Additional history obtained from the patient's daughter who is at the bedside Prior medical records reviewed Vital Signs: reviewed and remarkable for bradycardia Differential diagnosis: CHF, acute intracranial process, STEMI, NSTEMI, cardiac ischemia ER treatment provided: Supplemental O2 Diagnostics interpreted by me: ECG: Sinus bradycardia at [address] segment elevation or signs of ischemia. There is no ectopy. Cardiac Monitoring: Sinus bradycardia at a rate of 54 Laboratory studies: See below Imaging studies: As per radiology Portable chest x-ray: See report CT scan of the brain: See report HPI: 76/F arrives for evaluation of lethargy and chest pressure. Patient's daughter explains that she arrived at the house this morning and the patient appeared quite lethargic. She would not open her eyes. She describes a 6 pound weight gain overnight with significant lower extremity edema. Patient describes having left-sided chest pressure last night. EMS was called and she was noted to be hypoxic. Patient typically takes 80 mg of Lasix for CHF. EMS administered sublingual nitroglycerin which did not relieve her chest pressure. Upon arrival here in the emergency department O2 saturation was 74% on room air. Patient had normal neurological exam but complained of a headache and was somewhat lethargic so she went for CT scan of the brain which was normal. ROS: See above HPI for pertinent positives & negatives. A total of 10 systems reviewed and were otherwise negative. PAST MEDICAL HISTORY:See Below PAST SURGICAL HISTORY:See Below FAMILY HISTORY:See Below SOCIAL HISTORY:See Below HOME MEDICATIONS:See list ALLERGIES:See list VITALS:See Below PHYSICAL EXAMINATION: HEENT: Head - normocephalic and atraumatic. Pupils are equal, round, and reactive to light. Extraocular eye muscles are intact, and sclera are anicteric. Nose - moist nasal mucosa without discharge. Mouth - moist buccal mucosa. Oropharynx is nonerythematous and there is no tonsillar exudate or edema noted. Neck: Supple; no JVD or cervical adenopathy Heart: Bradycardic rate with a regular rhythm there is a normal S1 and S2 with no murmurs, clicks, or gallops appreciated. Lungs: Diminished breath sounds at both bases bilaterally Abdomen: Soft, completely nontender, nondistended, with good bowel sounds. There are no palpable pulsatile masses or hepatosplenomegaly. There is no guarding, rigidity, or rebound noted. Extremities: 4+ pitting edema in both lower extremities with moderate peripheral vascular changes Skin: warm and dry with good turgor and no rashes. ED COURSE: Times/Reassessments: 815: Patient was evaluated in room C4. A complete history and physical was performed. An order was placed for continuous cardiac monitoring. Patient was in sinus bradycardia at a rate of 54 A twelve-lead EKG was obtained. A portable chest x-ray was performed. Patient was on supplemental oxygen as her room air oxygen saturation was 74%. The patient's daughter was at the bedside and provided much of the history. Patient continued to complain of a headache and was somewhat lethargic. The patient had a normal neurological exam. She did go for CT scan of the brain. Concepción Chong DO Past Med/Surg History Medical History (Updated 03/04/22 @ 17:06 by Concepción Chong DO) Acute blood loss anemia (ABLA) Acute hyponatremia Anemia RECEIVED 2 UNITS [facility] 04/2021 RECENT ADMISSION Atrial fibrillation Dx'ed 2018 Follows w/ Dr. Delacruz, on Eliquis CAD (coronary artery disease) Medically managed by cardiology NSTEMI 07/27/20- cath demonstrated small branch vessel disease involving small OM to, not amenable to intervention. CD (celiac disease) "Does not" follow gluten-free diet Chest pressure Constipation Degenerative disc disease Diastolic CHF Diverticulitis 2013 GI bleed reason for Endoscopy History of paroxysmal supraventricular tachycardia with atrial tachycardia Low back pain with sciatica Nausea & vomiting Non-ST elevation MS (NSTEMI) 07/27/20 Ocular migraine Open wound of buttock Sleep apnea CPAP Vertigo Surgical History History of arthroscopy of right shoulder RCR History of cardiac cath 2016, 07/28/20 ([place]) > no stents History of cardioversion x2, most recent 04/2019 History of carpal tunnel release R/L History of cataract surgery R/L History of cholecystectomy History of colonoscopy History of esophagogastroduodenoscopy (EGD) History of foot surgery R/L feet "to straighten toes" History of fracture of left shoulder Plate + screws History of hysterectomy JOANNA + BSO History of incision and drainage Right foot History of tonsillectomy History of total knee replacement Left x2, right x1 S/P transesophageal echocardiogram (JOHANA) Status post placement of implantable loop recorder Implanted 12/2019 - Follows Dr. Yoo > to see Dr. Powers this afternoon for check Family History Mother Family hx of colon cancer Colorectal cancer Brother Prostate cancer Family history of diabetes mellitus Father Dissecting aortic aneurysm Myocardial infarction Grandmother (Maternal) Stroke Other No family history of adverse response to anesthesia Denies family history of Ovarian cancer Breast cancer Social History Smoking Status: Never smoker Tobacco Type: Cigarettes Age Started Using Tobacco: 19; Age Quit Using Tobacco: 27; packs per day: 0.25; Second Hand Exposure: No; Hx Alcohol Use: No Hx Substance Use: No Preferred Language: Maori Communication Ability: Effective Visual Impairment: No Limitations Hearing Ability: Normal Construction Secretary Required: No Beliefs That Will Affect Care: None marital status: Current Living Situation: Alone Current Living Situation Comment: just left her 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; 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[employer]; 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 Feels Safe at Home: Yes Childhood Exposure to Second-Hand Smoke: No Dental Care, Regularly: Yes Seatbelt Use: always Sunscreen Use: Yes Assistive Devices: None Allergies Allergies Allergy/AdvReac Type Severity Reaction Status Date / Time gluten Allergy Intermediate Celiac Verified 02/17/22 10:00 disease latex Allergy Mild Rash Verified 02/17/22 10:00 amoxicillin AdvReac Intermediate Yeast Verified 02/17/22 10:00 infection cefdinir AdvReac Intermediate nausea Verified 02/17/22 10:00 Cephalosporins AdvReac Intermediate Yeast Verified 02/17/22 10:00 infection clavulanic acid AdvReac Intermediate Yeast Verified 02/17/22 10:00 infection prednisone AdvReac Intermediate Anxiety Verified 02/17/22 10:00 Home Meds Home Medications Medication Instructions Recorded Confirmed docusate sodium 100 mg capsule 300 mg PO QAM 04/15/18 03/03/22 calcium carbonate 600 mg calcium 1,200 mg PO QAM 06/08/19 03/03/22 (1,500 mg) tablet (Calcium) cholecalciferol (vitamin D3) 25 1,000 unit PO QAM 06/08/19 03/03/22 mcg (1,000 unit) capsule (Vitamin D3) cyanocobalamin (vitamin B-12) 500 mcg PO QAM 12/08/21 03/03/22 1,000 mcg/15 mL oral liquid Previous Rx's Medication Instructions Recorded apixaban 5 mg tablet (Eliquis) 5 mg PO BID #180 tabs 10/08/20 estradiol 0.075 mg/24 hr weekly 1 patch topical YARBROUGH #4 ea 02/10/21 transdermal patch nitroglycerin 0.4 mg sublingual 0.4 mg sublingual Q5M PRN chest 09/25/21 tablet (Nitrostat) pain #20 tabs memantine 10 mg tablet (Namenda) 10 mg PO BID #180 tabs 11/11/21 rivastigmine tartrate 3 mg capsule 3 mg PO BID #180 caps 12/03/21 buspirone 5 mg tablet 5 mg PO TID #90 tabs 12/20/21 pantoprazole 40 mg tablet,delayed 40 mg PO QAM #90 tabs 01/05/22 release dicyclomine 10 mg capsule 10 mg PO BID #20 caps 01/10/22 potassium chloride 20 mEq 20 meq PO DAILY #30 tabs 01/18/22 tablet,extended release furosemide 40 mg tablet (Lasix) 80 mg PO QAM #180 tabs 02/15/22 rosuvastatin 40 mg tablet (Crestor) 40 mg PO HS #90 tabs 02/21/22 amiodarone 200 mg tablet 100 mg PO HS #30 tabs 03/04/22 Results & Data (ED) Vital Signs Vital Signs - 24 hr 03/03/22 08:01 03/03/22 07:59 03/03/22 08:10 Temperature 36.8 C Temperature Source Temporal Artery Scan Pulse Rate 55 L 55 L Pulse Rate from SpO2 Sensor 56 L Respiratory Rate 20 24 Respiratory Effort / Characteristics Non-Labored Spontaneous Respiratory Depth Normal Blood Pressure 104/54 L 135/52 L Blood Pressure Mean 70 79 Blood Pressure Position Sitting Pulse Oximetry 98 74 L 100 Oxygen Delivery Method Room Air Room Air Nasal Cannula Oxygen Flow Rate 4 Sepsis Recent Fever Within 48 Hours No Sepsis New/Unexplained Change in Mental Status N/A Sepsis Action Taken by Nursing No Action Required Oxygen Flow Rate - Titration 4 Pulse Oximetry Post Tiitration 100 03/03/22 08:47 Temperature Temperature Source Pulse Rate 56 L Pulse Rate from SpO2 Sensor Respiratory Rate Respiratory Effort / Characteristics Respiratory Depth Blood Pressure Blood Pressure Mean Blood Pressure Position Pulse Oximetry 100 Oxygen Delivery Method Nasal Cannula Oxygen Flow Rate 4 Sepsis Recent Fever Within 48 Hours Sepsis New/Unexplained Change in Mental Status Sepsis Action Taken by Nursing Oxygen Flow Rate - Titration Pulse Oximetry Post Tiitration Laboratory Data Result diagrams: 03/04/22 07:29 03/04/22 07:29 Lab Results 03/03/22 03/03/22 03/03/22 Range/Units 08:00 08:00 08:00 WBC 6.95 (4.8-10.8) K/ul RBC 3.31 L (3.93-5.22) M/uL Hgb 10.7 L (12.0-16.0) g/dl Hct 31.5 L (34.1-44.9) % MCV 95.2 (80.0-100.0) fL MCH 32.3 (25.0-34.0) pg MCHC 34.0 (32.0-36.0) g/dL RDW Std Deviation 49.3 H (36.4-46.3) fL RDW Coeff of Malinda 14.1 (11.5-14.5) % Plt Count 179 (130-400) K/uL MPV 12.0 (9.4-12.3) fL Immature Gran % (Auto) 0.3 % Neut % (Auto) 30.9 % Lymph % (Auto) 56.5 % [place] % (Auto) 10.5 % Eos % (Auto) 0.9 % Baso % (Auto) 0.9 % Neut # (Auto) 2.15 (1.4-6.5) K/uL Lymph # (Auto) 3.93 H (1.2-3.4) K/uL [place] # (Auto) 0.73 (0.24-0.82) K/uL Eos # (Auto) 0.06 (0-0.50) K/uL Baso # (Auto) 0.06 (0-0.2) K/uL Immature Gran # (Auto) 0.02 (0.00-0.02) K/uL Acanthocytes (Spur) 1+ D-Dimer 520 H* (0-500) ug/L FEU Sodium 138 (136-145) mmol/L Potassium 3.6 (3.5-5.1) mmol/L Chloride 102 (98-107) mmol/L Carbon Dioxide 30 (21-32) mmol/L Anion Gap 6 (3-11) BUN 19 (6-23) mg/dl Creatinine 1.01 (0.6-1.2) mg/dl Est Cr Clr Drug Dosing Not Reportable Est GFR ( Amer) 62.6 ml/min Est GFR (Non-Af Amer) 54.0 ml/min BUN/Creatinine Ratio 18.8 (10-20) Glucose 89 (70-99(Fasting)) mg/dl Calcium 9.3 (8.5-10.1) mg/dl Total Bilirubin 0.4 (0.2-1.0) mg/dl AST 24 (13-39) U/L ALT 17 (7-52) U/L Alkaline Phosphatase 74 (34-104) U/L Troponin I High Sens 6.1 (0-14) pg/ml B-Natriuretic Peptide (0-100) pg/ml Total Protein 6.5 (6.0-8.3) gm/dl Albumin 3.8 (3.4-5.0) gm/dl Globulin 2.7 (2.5-4.0) gm/dl Albumin/Globulin Ratio 1.4 (0.9-2) Lipase 11 (11-82) U/L SARS-CoV-2, RNA, NAAT (NEGATIVE) 03/03/22 03/03/22 Range/Units 08:00 11:00 WBC (4.8-10.8) K/ul RBC (3.93-5.22) M/uL Hgb (12.0-16.0) g/dl Hct (34.1-44.9) % MCV (80.0-100.0) fL MCH (25.0-34.0) pg MCHC (32.0-36.0) g/dL RDW Std Deviation (36.4-46.3) fL RDW Coeff of Malinda (11.5-14.5) % Plt Count (130-400) K/uL MPV (9.4-12.3) fL Immature Gran % (Auto) % Neut % (Auto) % Lymph % (Auto) % [place] % (Auto) % Eos % (Auto) % Baso % (Auto) % Neut # (Auto) (1.4-6.5) K/uL Lymph # (Auto) (1.2-3.4) K/uL [place] # (Auto) (0.24-0.82) K/uL Eos # (Auto) (0-0.50) K/uL Baso # (Auto) (0-0.2) K/uL Immature Gran # (Auto) (0.00-0.02) K/uL Acanthocytes (Spur) D-Dimer (0-500) ug/L FEU Sodium (136-145) mmol/L Potassium (3.5-5.1) mmol/L Chloride (98-107) mmol/L Carbon Dioxide (21-32) mmol/L Anion Gap (3-11) BUN (6-23) mg/dl Creatinine (0.6-1.2) mg/dl Est Cr Clr Drug Dosing Est GFR ( Amer) ml/min Est GFR (Non-Af Amer) ml/min BUN/Creatinine Ratio (10-20) Glucose (70-99(Fasting)) mg/dl Calcium (8.5-10.1) mg/dl Total Bilirubin (0.2-1.0) mg/dl AST (13-39) U/L ALT (7-52) U/L Alkaline Phosphatase (34-104) U/L Troponin I High Sens (0-14) pg/ml B-Natriuretic Peptide 105 H (0-100) pg/ml Total Protein (6.0-8.3) gm/dl Albumin (3.4-5.0) gm/dl Globulin (2.5-4.0) gm/dl Albumin/Globulin Ratio (0.9-2) Lipase (11-82) U/L SARS-CoV-2, RNA, NAAT NEGATIVE (NEGATIVE) Administered Medications Acetaminophen (Acetaminophen 325 Mg Tab) 650 mg PO Q4H PRN PRN Reason: Pain or Fever Stop: 04/02/22 13:57 Last Admin: 03/04/22 07:53 Dose: 650 mg Documented By: RAJ Apixaban (Apixaban 5 Mg Tablet) 5 mg PO BID [facility] Stop: 04/02/22 20:59 Last Admin: 03/04/22 09:29 Dose: 5 mg Documented By: Admin: 03/03/22 20:31 Dose: 5 mg Documented By: DYLAN Aspirin (Aspirin 81 Mg Ectab) 81 mg PO [facility] Stop: 04/02/22 13:57 Last Admin: 03/04/22 09:30 Dose: 81 mg Documented By: Admin: 03/03/22 15:46 Dose: 81 mg Documented By: DYLAN Buspirone HCl (Buspirone 5 Mg Tab) 5 mg PO TID [facility] Stop: 04/02/22 13:59 Last Admin: 03/04/22 09:29 Dose: 5 mg Documented By: Admin: 03/03/22 20:34 Dose: 5 mg Documented By: Admin: 03/03/22 15:46 Dose: 5 mg Documented By: DYLAN Calcium Carbonate (Calcium Carbonate 1250mg Tab) 1,250 mg PO [facility] Stop: 04/03/22 08:59 Last Admin: 03/04/22 09:29 Dose: 1,250 mg Documented By: RAJ Cyanocobalamin (Cyanocobalamin (B-12) 500 Mcg Tablet) 500 mcg PO [facility] Stop: 04/03/22 08:59 Last Admin: 03/04/22 09:29 Dose: 500 mcg Documented By: RAJ Dicyclomine HCl (Dicyclomine Hcl 10 Mg Cap) 10 mg PO BID [facility] Stop: 04/02/22 20:59 Last Admin: 03/04/22 09:29 Dose: 10 mg Documented By: Admin: 03/03/22 20:33 Dose: 10 mg Documented By: DYLAN Docusate Sodium (Docusate Sodium 100 Mg Cap) [facility] Stop: 04/03/22 08:59 Last Admin: 03/04/22 09:28 Dose: 300 mg Documented By: RAJ Furosemide (Furosemide 80 Mg Tab) 80 mg PO QAM [facility] Stop: 04/03/22 08:59 Last Admin: 03/04/22 09:29 Dose: 80 mg Documented By: RAJ Memantine (Memantine Hcl 10 Mg Tab) 10 mg PO BID [facility] Stop: 04/02/22 20:59 Last Admin: 03/04/22 09:28 Dose: 10 mg Documented By: Admin: 03/03/22 20:34 Dose: 10 mg Documented By: DYLAN Miscellaneous (Order Awaiting Action: Estradiol 0.075 Mg/24 Hr Patch Weekly) 1 each N/A QS [facility] Stop: 04/02/22 15:59 Last Admin: 03/04/22 10:30 Dose: Not Given Documented By: Admin: 03/04/22 06:15 Dose: Not Given Documented By: Admin: 03/03/22 20:30 Dose: Not Given Documented By: DYLAN Pantoprazole Sodium (Pantoprazole 40 Mg Tab) 40 mg PO DAILYBB [facility] Stop: 04/03/22 06:29 Last Admin: 03/04/22 06:41 Dose: 40 mg Documented By: AIDA Rivastigmine Tartrate (Rivastigmine Tartrate 1.5 Mg Cap) 3 mg PO BID [facility] Stop: 04/02/22 20:59 Last Admin: 03/04/22 09:28 Dose: 3 mg Documented By: Admin: 03/03/22 20:33 Dose: 3 mg Documented By: DYLAN Rosuvastatin Calcium (Rosuvastatin Calcium 20 Mg Tab) 40 mg PO HS [facility] Stop: 04/02/22 20:59 Last Admin: 03/03/22 20:33 Dose: 40 mg Documented By: DYLAN Vitamin D (Cholecalciferol 1,000 Units 25 Mcg Tab) 1,[facility] [place] Stop: 04/03/22 08:59 Last Admin: 03/04/22 09:29 Dose: 1,000 units Documented By: RAJ Discontinued Medications Amiodarone HCl (Amiodarone 200 Mg Tab) 200 mg PO HS [facility] Stop: 04/02/22 20:59 Last Admin: 03/03/22 20:35 Dose: 200 mg Documented By: DYLAN Furosemide (Furosemide 40 Mg/4 Ml Vial) 80 mg IV ONE ONE Stop: 03/03/22 13:59 Last Admin: 03/03/22 15:07 Dose: 80 mg Documented By: DYLAN Potassium Chloride (K Rocky / Wtr) 10 meq in 100 mls @ 100 mls/hr IV Q1H [facility] Stop: 03/04/22 11:29 Last Infusion: 03/04/22 12:41 Dose: 0 mls/hr Documented By: Admin: 03/04/22 11:41 Dose: 100 mls/hr Documented By: Infusion: 03/04/22 11:36 Dose: 100 mls/hr Documented By: Admin: 03/04/22 10:36 Dose: 100 mls/hr Documented By: RAJ Potassium Chloride (Potassium Chloride Crtab 20 Meq Tabcr) 20 meq PO DAILY [facility] Stop: 04/03/22 08:59 Last Admin: 03/04/22 10:30 Dose: Not Given Documented By: RAJ Discharge Plan Visit Data Chief Complaint: Cardiac Assessment Stated Complaint: CHEST PAIN ED Provider: Concepción Chong Discharge Problem: Hypoxia, Chest pain Patient Disposition: Admitted As Inpatient Discharge Instructions Interventions: ED Discharge Assessment Last Done: 03/03/22 13:57 : Chest pain Qualifiers: Chest pain type: unspecified Qualified Code(s): R07.9 - Chest pain, unspecified
[2022-03-03 09:02] LABS: Alanine Aminotransferase 17 U/L (7-52); Albumin Globulin Ratio 1.4 (0.9-2); Albumin Level 3.8 gm/dl (3.4-5.0); Alkaline Phosphatase 74 U/L (34-104); Anion Gap 6 (3-11); Aspartate Aminotransferase 24 U/L (13-39); BUN Creatinine Ratio 18.8 (10-20); Bilirubin,Total 0.4 mg/dl (0.2-1.0); Blood Urea Nitrogen 19 mg/dl (6-23); Calcium 9.3 mg/dl (8.5-10.1); Carbon Dioxide 30 mmol/L (21-32); Chloride 102 mmol/L (98-107); Est GFR (African American) 62.6 ml/min; Globulin 2.7 gm/dl (2.5-4.0); Glucose 89 mg/dl (70-99(Fasting)); Lipase 11 U/L (11-82); Potassium 3.6 mmol/L (3.5-5.1); Sodium 138 mmol/L (136-145); Total Protein 6.5 gm/dl (6.0-8.3)
[2022-03-03 09:08] LABS: Troponin I High Sensitivity 6.1 pg/ml (0-14)
--- NOTE | 2022-03-03 09:09 | XRay Report ---
XR chest 1V portable CLINICAL HISTORY: Atypical chest pain. COMPARISON STUDY: Chest CT December 09, 2021 and chest radiograph January 07, 2022. FINDINGS: Proximal left humeral internal fixation and cardiac monitoring device are noted. Lung volum es are normal. Lungs are clear. There is no pneumothorax or pleural effusion. Cardiac size is normal. Mediastinal contours are normal. There is no evidence for pulmonary edema. IMPRESSION: No acute cardiopulmonary findings. ACT 112: Negative or not required by law. Electronically signed by: Kimani De M.D. 03/03/2022 9:08 AM
[2022-03-03 09:14] LABS: Acanthocytes 1+; Basophils # (auto) 0.06 K/uL (0-0.2); Basophils % (auto) 0.9 %; Eosinophils # (auto) 0.06 K/uL (0-0.50); Eosinophils % (auto) 0.9 %; Immature Granulocytes # (auto) 0.02 K/uL (0.00-0.02); Immature Granulocytes % (auto) 0.3 %; Lymphocytes # (auto) 3.93 K/uL (1.2-3.4); Lymphocytes % (auto) 56.5 %; Monocytes # (auto) 0.73 K/uL (0.24-0.82); Monocytes % (auto) 10.5 %; Neutrophils # (auto) 2.15 K/uL (1.4-6.5); Neutrophils % (auto) 30.9 %
--- NOTE | 2022-03-03 09:49 | CT Scan Report ---
CT OF THE HEAD WITHOUT CONTRAST CLINICAL HISTORY: Lethargic. Headache. COMPARISON STUDY: Head CT January 09, 2022. MRI of the brain October 29, 2021. CT DOSE: 767.83 mGy.cm TECHNIQUE: Helical axial images of the head were obtained without IV contrast. Automated exposure con trol was utilized for the study. A dose lowering technique was utilized adhering to the principles o f ALARA. FINDINGS: No acute intracranial hemorrhage, midline shift or mass effect is present. Mild white matte r hypodensities favor small vessel disease. The ventricular system is stable. The basal cisterns are patent. No extra-axial collections are present. There are no findings to suggest acute dural sinus th rombosis or acute territorial infarct. No significant calvarial abnormalities are present. Trace flui d within the inferior left mastoid air cells is unchanged. IMPRESSION: No acute intracranial findings. No change in appearance of the brain. ACT 112: Negative or not required by law. Electronically signed by: Kimani De M.D. 03/03/2022 9:47 AM
--- NOTE | 2022-03-03 11:02 | History & Physical Report ---
Date of Service March 03, 2022 Assessment & Plan (1) Hypoxia: Plan: Patient had a brief bout of hypoxia on presentation accompanied with chest pain. The chest pain was relieved on nitroglycerin hypoxia was remedied with supplemental oxygen which subsequently has been tapered fairly easily. Patient did not take her typical diuretic dose this morning her chest x-ray does not show significant heart failure she will be given her typical daily diuretic dose of 80 mg intravenously and will follow her oxygen supplementation need. She has a D-dimer which is 520 she is chronically anticoagulated we will not pursue CT angiography at this time (2) Bradycardia: Plan: Patient has sinus bradycardia she is on amiodarone 200 at bedtime we will consult cardiology to determine if her dose should be reduced further. Patient has had a recent echocardiogram December 2021 with preserved ejection fraction. She does have known coronary artery disease distal and not amenable to intervention we will trend her troponins and if there is escalation of troponin from presentation we will consider repeating echocardiogram (3) CAD (coronary artery disease): Plan: Patient with coronary artery disease as mentioned in with catheterization in 2020 with distal disease. Patient is on rosuvastatin. Asked why she was on aspirin she was told from cardiology not to take an aspirin however during this stay for possibility of unstable angina patient will be on baby aspirin once a day. Patient's chest pain was relieved with nitroglycerin patient does complain of some palpitations throughout the evening which could be from her history of atrial fib subsequently we will ask cardiology if the patient should be on a long-acting nitrate although her blood pressure is marginal (4) Afib: Plan: Patient is in sinus rhythm maintained by amiodarone anticoagulated with apixaban (5) Chronic diastolic CHF (congestive heart failure): Plan: Last echocardiogram as mentioned with preserved ejection fraction no defined great explanation for her massive lower extremity edema. This was noted on her last admission in December. At that time her right ventricle was normal in size and function there was no comment about pulmonary hypertension on her echo Daughter claims the patient have a 6 pound weight gain she does have lower extremity swelling however she has a history of constipation in past we will check a KUB for stool load this could be an explanation for her weight gain (6) Current use of lobsterman anticoagulation: Plan: Patient is currently on apixaban. She has had iron deficiency anemia in the past. Her hemoglobin is 10.7 and that is near its usual range for her. She is not microcytic she will continue on the apixaban at this time which will also serve as DVT prevention Plan Patient complains of feeling fatigued therefore we will check a UA to look for urinary tract infection. The patient states she has had difficulty getting out of bed due to her lower leg swelling. History of Present Illness Primary Care Provider: Sravan Figueroa MD 76-year-old female with known coronary disease which is small vessel and not amenable to intervention per last cardiac catheterization in 2020 who presents with chest pain 6 pound weight gain and hypoxia according to ER reports. Patient's chest pain was relieved with nitroglycerin in the ER patient denies medical indiscretion. She typically follows with Dr. Jacky Delacruz last being seen in cardiology clinic on February 17 at which time no changes were made in her medical regiment. She is a history of diastolic heart failure which was stable at that visit. She is on amiodarone for atrial fibrillation and chronic anticoagulation with apixaban D-dimer is 520 normal being 500 her hypoxia if caused by PE should be from a massive PE which be unlikely on apixaban and also unlikely given the only moderate elevation of D-dimer we will not pursue CT angiography. Currently COVID testing is pending Edema has been present intermittently in this patient stay throughout the record Allergies Allergy/AdvReac Type Severity Reaction Status Date / Time gluten Allergy Intermediate Celiac Verified 02/17/22 10:00 disease latex Allergy Mild Rash Verified 02/17/22 10:00 amoxicillin AdvReac Intermediate Yeast Verified 02/17/22 10:00 infection cefdinir AdvReac Intermediate nausea Verified 02/17/22 10:00 Cephalosporins AdvReac Intermediate Yeast Verified 02/17/22 10:00 infection clavulanic acid AdvReac Intermediate Yeast Verified 02/17/22 10:00 infection prednisone AdvReac Intermediate Anxiety Verified 02/17/22 10:00 Home Medications Medication Instructions Recorded Confirmed Type docusate sodium 100 mg capsule 300 mg PO QAM 04/15/18 03/03/22 History calcium carbonate 600 mg calcium 1,200 mg PO QAM 06/08/19 03/03/22 History (1,500 mg) tablet (Calcium) cholecalciferol (vitamin D3) 25 1,000 unit PO QAM 06/08/19 03/03/22 History mcg (1,000 unit) capsule (Vitamin D3) apixaban 5 mg tablet (Eliquis) 5 mg PO BID #180 tabs 10/08/20 03/03/22 Rx estradiol 0.075 mg/24 hr weekly 1 patch topical YARBROUGH #4 ea 02/10/21 03/03/22 Rx transdermal patch nitroglycerin 0.4 mg sublingual 0.4 mg sublingual Q5M PRN chest 09/25/21 12/0 04/24 Rx tablet (Nitrostat) pain #20 tabs memantine 10 mg tablet (Namenda) 10 mg PO BID #180 tabs 11/11/21 03/03/22 Rx rivastigmine tartrate 3 mg capsule 3 mg PO BID #180 caps 12/03/21 03/03/22 Rx cyanocobalamin (vitamin B-12) 500 mcg PO QAM 12/08/21 03/03/22 History 1,000 mcg/15 mL oral liquid buspirone 5 mg tablet 5 mg PO TID #90 tabs 12/20/21 03/03/22 Rx pantoprazole 40 mg tablet,delayed 40 mg PO QAM #90 tabs 01/05/22 03/03/22 Rx release dicyclomine 10 mg capsule 10 mg PO BID #20 caps 01/10/22 03/03/22 Rx amiodarone 200 mg tablet 200 mg PO HS 01/17/22 03/03/22 History potassium chloride 20 mEq 20 meq PO DAILY #30 tabs 01/18/22 03/03/22 Rx tablet,extended release furosemide 40 mg tablet (Lasix) 80 mg PO QAM #180 tabs 02/15/22 03/03/22 Rx rosuvastatin 40 mg tablet (Crestor) 40 mg PO HS #90 tabs 02/21/22 03/03/22 Rx Past Med/Surg History Medical History (Updated 03/03/22 @ 11:02 by Ismael Lawrence MD) Acute blood loss anemia (ABLA) Acute hyponatremia Anemia RECEIVED 2 UNITS [facility] 04/2021 RECENT ADMISSION Atrial fibrillation Dx'ed 2019 Follows w/ Dr. Delacruz, on Eliquis CAD (coronary artery disease) Medically managed by cardiology NSTEMI 07/27/20- cath demonstrated small branch vessel disease involving small OM to, not amenable to intervention. CD (celiac disease) "Does not" follow gluten-free diet Chest pressure Constipation Degenerative disc disease Diastolic CHF Diverticulitis 2013 GI bleed reason for Endoscopy History of paroxysmal supraventricular tachycardia with atrial tachycardia Low back pain with sciatica Nausea & vomiting Non-ST elevation [place] (NSTEMI) 07/27/20 Ocular migraine Open wound of buttock Sleep apnea CPAP Vertigo Surgical History History of arthroscopy of right shoulder RCR History of cardiac cath 2015, 07/28/20 ([place]) > no stents History of cardioversion x2, most recent 04/2019 History of carpal tunnel release R/L History of cataract surgery R/L History of cholecystectomy History of colonoscopy History of esophagogastroduodenoscopy (EGD) History of foot surgery R/L feet "to straighten toes" History of fracture of left shoulder Plate + screws History of hysterectomy JOANNA + BSO History of incision and drainage Right foot History of tonsillectomy History of total knee replacement Left x2, right x1 S/P transesophageal echocardiogram (JOHANA) Status post placement of implantable loop recorder Implanted 12/2019 - Follows Dr. Yoo > to see Dr. Powers this afternoon for check Family History Mother Family hx of colon cancer Colorectal cancer Brother Prostate cancer Family history of diabetes mellitus Father Dissecting aortic aneurysm Myocardial infarction Grandmother (Maternal) Stroke Other No family history of adverse response to anesthesia Denies family history of Ovarian cancer Breast cancer Social History Smoking Status: Never smoker Tobacco Type: Cigarettes Age Started Using Tobacco: 19; Age Quit Using Tobacco: 27; packs per day: 0.25; Second Hand Exposure: No; Hx Alcohol Use: No Hx Substance Use: No Preferred Language: Greek Communication Ability: Effective Visual Impairment: No Limitations Hearing Ability: Normal 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 Required: No Beliefs That Will Affect Care: None marital status: Current Living Situation: Alone Current Living Situation Comment: just left her 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; 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[employer]; 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 Feels Safe at Home: Yes Childhood Exposure to Second-Hand Smoke: No Dental Care, Regularly: Yes Seatbelt Use: always Sunscreen Use: Yes Assistive Devices: Cane and Walker Review of Systems Review of Systems: Mild distress and moderate fatigue no headache, no visual changes no speech or swallowing issues chest pain, pressure or palpitations no shortness of breath, cough or wheezes no abdominal pain, nausea or vomiting, diarrhea or constipation no dysuria, hematuria or frequency no focal joint pain bilateral symmetric lower extremity swelling is noted apparently new according to the daughter but noted on her last admission no back pain, CVA tenderness or radicular pain no bruising, bleeding or rashes no focal signs of weakness or numbness or altered sensation no complaints of anxiety or depression.. Physical Exam Physical Exam: The patient appeared well nourished and normally developed. Vital signs as documented. Head exam is normocephalic atraumatic Neck is without JVD, thyromegaly, or carotid bruits. Lungs are clear to auscultation, no focal loss of breath sounds Cardiac exam, Rhythm is bradycardic.. No murmurs, rubs or gallops. Abdominal exam reveals normal bowel sounds, soft non tender, no masses Extremities are with 2+ edema bilaterally. She has no muscular tenderness no cords. This edema was noted on a previous admission also Neurologic exam is alert and oriented, no focal loss of strength or sensation Skin is without bruises or rashes Psychologically is without concerns for anxiety or depression.. Results & Data Results & Data ([facility]) Vital Signs (Past 12 Hours) Vital Signs Temp Pulse Resp BP Pulse Ox O2 Del Method O2 Flow Rate 03/03/22 09:00 50 L 16 130/47 L 100 03/03/22 08:30 55 L 22 137/61 100 03/03/22 08:47 56 L 100 Nasal Cannula 4 03/03/22 08:10 55 L 24 135/52 L 100 Nasal Cannula 4 03/03/22 07:59 74 L Room Air 03/03/22 08:01 98.2 F 55 L 20 104/54 L 98 Room Air Diagnostic Findings Chest X-Ray 03/03/22 08:29 XR chest 1V portable CLINICAL HISTORY: Atypical chest pain. COMPARISON STUDY: Chest CT December 09, 2021 and chest radiograph January 07, 2022. FINDINGS: Proximal left humeral internal fixation and cardiac monitoring device are noted. Lung volumes are normal. Lungs are clear. There is no pneumothorax or pleural effusion. Cardiac size is normal. Mediastinal contours are normal. There is no evidence for pulmonary edema. IMPRESSION: No acute cardiopulmonary findings. ACT 112: Negative or not required by law. Electronically signed by: Kimani De M.D. 03/03/2022 9:[address] 03/03/22 08:29 CT OF THE HEAD WITHOUT CONTRAST CLINICAL HISTORY: Lethargic. Headache. COMPARISON STUDY: Head CT January 09, 2022. MRI of the brain October 29, 2021. CT DOSE: 767.83 mGy.cm TECHNIQUE: Helical axial images of the head were obtained without IV contrast. Automated exposure control was utilized for the study. A dose lowering technique was utilized adhering to the principles of ALARA. FINDINGS: No acute intracranial hemorrhage, midline shift or mass effect is present. Mild white matter hypodensities favor small vessel disease. The ventricular system is stable. The basal cisterns are patent. No extra-axial collections are present. There are no findings to suggest acute dural sinus thrombosis or acute territorial infarct. No significant calvarial abnormalities are present. Trace fluid within the inferior left mastoid air cells is unchanged. IMPRESSION: No acute intracranial findings. No change in appearance of the brain. ACT 112: Negative or not required by law. Electronically signed by: Kimani De M.D. 03/03/2022 9:47 AM ECG Additional Comments: Sinus bradycardia with lateral ST changes similar to old PG Care Time/CCT Total # of Minutes Spent Total Time Spent with Patient: Total time spent is greater than 50% in coordination of care (as documented) at patient's floor/unit and/or counseling patient: Coding Level of Care Code INT OBSERVATION CARE 70M LVL 3 Diagnoses Hypoxia R09.02 Bradycardia R00.1 CAD (coronary artery disease) I25.10 Afib I48.91 Atrial fibrillation type: unspecified Chronic diastolic CHF (congestive heart failure) I50.32 Current use of fci anticoagulation Z79.01 (1) Afib Atrial fibrillation type: unspecified Qualified Code(s): I48.91 - Unspecified atrial fibrillation
[2022-03-03 11:19] LABS: D Dimer 520 ug/L FEU (0-500)
[2022-03-03] MEDS ORDERED: ALUMINUM/MAGNESIUM SUSP 30 ML UDC PO PRN (13:58)
[2022-03-03] MEDS ORDERED: ACETAMINOPHEN 325 MG TAB PO PRN (13:58)
[2022-03-03] MEDS ORDERED: FUROSEMIDE 40 MG/4 ML VIAL IV ONE (13:58)
[2022-03-03] MEDS ORDERED: NITROGLYCERIN SL 0.4 MG/TAB TAB SL PRN (13:58)
[2022-03-03] MEDS ORDERED: ONDANSETRON INJ 2 MG/ML 2 ML VIAL IV PRN (13:58)
[2022-03-03] MEDS ORDERED: MoRPHine SULFATE 2 MG/ML CARP IV PRN (13:58)
[2022-03-03] MEDS: busPIRone 5 MG TAB PO SCH ×2 (15:46→20:34)
[2022-03-03] MEDS: ASPIRIN 81 MG ECTAB PO SCH (15:46)
--- NOTE | 2022-03-03 16:31 | Cardiology Consultation ---
Date of Consultation March 03, 2022 Assessment & Plan (1) Hypoxia: (2) Mitral regurgitation: (3) Bradycardia: (4) CAD (coronary artery disease): (5) Syncope: (6) Atrial fibrillation: Plan 1. Hypoxia: Unclear etiology. Chest x-ray was normal. BNP was only mildly elevated. Her examination appears quite benign. She was administered 1 dose of IV Lasix and some nitroglycerin with improvement in her symptoms. Additional doses of diuretic could be administered monitoring her renal function and electrolytes closely. It is possible she had an element of mild pulmonary edema, but given the exam findings and the x-ray it would seem that her degree of hypoxemia was out of proportion to any element of pulmonary edema. 2. Diastolic heart failure: Again, perhaps some mild pulmonary edema at the time of presentation. She did admit to some weight gain certainly has some p eripheral edema as well. She was administered diuretic with improvement in her symptoms. Could continue with diuresis and attempt to reduce edema monitoring her volume status, renal function electrolytes closely. She has actually done quite well for a long time and I do not think this exacerbation warrants any change in her diuretic regimen when she is discharged. 3. Atrial fibrillation: No clinical recurrence. We monitor her for atrial fibrillation with her loop recorder. I will see if there is any evidence of arrhythmia that could have caused some exacerbation. She is on amiodarone for atrial fibrillation and likely requires less medication given her resting bradycardia. Will continue apixaban. 4. Valvular heart disease: Mild to moderate. Mild aortic insufficiency. Not contributing to her current symptoms. This can be followed over time. 5. Chest pain: She had chest pressure for an extended period of time. Despite the extended in relatively significant nature of her chest pressure, no elevation in cardiac biomarkers. Possibly related to some mild pulmonary vascular congestion. 6. Bradycardia: She does have a significant resting bradycardia. This is longstanding in nature. In general she has not been symptomatic. However, I think reducing her amiodarone to 100 mg a day would be reasonable. 7. Syncope: Remote. No recent episodes. 8. Patient activated loop recorder: I will see if there are any transmissions recently. We can also interrogate the device while she is an inpatient if I cannot retrieve any recording she made over the course of the last day. History of Present Illness Reason for Consultation: Chest pain, dyspnea, hypoxia Requesting Physician: Howard Attending Physician: Ismael Lawrence MD History of Present Illness The patient is a 76-year-old woman with a history of paroxysmal atrial fibrillation and atrial tachycardia, small-vessel coronary artery disease, heart failure with preserved ejection fraction, mitral regurgitation and remote syncope status post implantation of a patient activated loop recorder. The patient states that since Monday of this week she has not felt well. While she was at [facility] she had some significant knee discomfort and felt that she was having difficulty singing due to some shortness of breath. Throughout the course of the week she has felt more fatigued and tired. She has an occasional cough. She has had some dyspnea. Last evening she felt that she had chest pressure as well. She describes this as someone sitting on my chest. This was associated with dyspnea. This lasted throughout the course of the evening and persisted into this morning. She did not get much sleep and was actually sleeping when her daughter came for her usual morning visit. She felt that her mother was very weak. She had some difficulty ambulating to the bathroom and back. Based on the symptom she called an ambulance and was transported to the emergency room. She was found to be hypoxic. She was given some nitroglycerin with some improvement in her chest symptoms and breathing. Currently the patient continues to feel tired. Her chest pressure appears to have resolved. She still has significant fatigue. And does not feel well. She has not noticed palpitations recently. During her episode last evening she did reportedly use her patient activator to record any potential arrhythmia. She has noticed some lower extremity edema recently. According to her daughter she has also gained 6 lb. Allergies Allergy/AdvReac Type Severity Reaction Status Date / Time gluten Allergy Intermediate Celiac Verified 02/17/22 10:00 disease latex Allergy Mild Rash Verified 02/17/22 10:00 amoxicillin AdvReac Intermediate Yeast Verified 02/17/22 10:00 infection cefdinir AdvReac Intermediate nausea Verified 02/17/22 10:00 Cephalosporins AdvReac Intermediate Yeast Verified 02/17/22 10:00 infection clavulanic acid AdvReac Intermediate Yeast Verified 02/17/22 10:00 infection prednisone AdvReac Intermediate Anxiety Verified 02/17/22 10:00 Home Medications Medication Instructions Recorded Confirmed Type docusate sodium 100 mg capsule 300 mg PO QAM 04/15/18 03/03/22 History calcium carbonate 600 mg calcium 1,200 mg PO QAM 06/08/19 03/03/22 History (1,500 mg) tablet (Calcium) cholecalciferol (vitamin D3) 25 1,000 unit PO QAM 06/08/19 03/03/22 History mcg (1,000 unit) capsule (Vitamin D3) apixaban 5 mg tablet (Eliquis) 5 mg PO BID #180 tabs 10/08/20 03/03/22 Rx estradiol 0.075 mg/24 hr weekly 1 patch topical YARBROUGH #4 ea 02/10/21 03/03/22 Rx transdermal patch nitroglycerin 0.4 mg sublingual 0.4 mg sublingual Q5M PRN chest 09/25/21 03/03/22 Rx tablet (Nitrostat) pain #20 tabs memantine 10 mg tablet (Namenda) 10 mg PO BID #180 tabs 11/11/21 03/03/22 Rx rivastigmine tartrate 3 mg capsule 3 mg PO BID #180 caps 12/03/21 03/03/22 Rx cyanocobalamin (vitamin B-12) 500 mcg PO QAM 12/08/21 03/03/22 History 1,000 mcg/15 mL oral liquid buspirone 5 mg tablet 5 mg PO TID #90 tabs 12/20/21 03/03/22 Rx pantoprazole 40 mg tablet,delayed 40 mg PO QAM #90 tabs 01/05/22 03/03/22 Rx release dicyclomine 10 mg capsule 10 mg PO BID #20 caps 01/10/22 03/03/22 Rx amiodarone 200 mg tablet 200 mg PO HS 01/17/22 03/03/22 History potassium chloride 20 mEq 20 meq PO DAILY #30 tabs 01/18/22 03/03/22 Rx tablet,extended release furosemide 40 mg tablet (Lasix) 80 mg PO QAM #180 tabs 02/15/22 03/03/22 Rx rosuvastatin 40 mg tablet (Crestor) 40 mg PO HS #90 tabs 02/21/22 03/03/22 Rx Patient History Medical History (Updated 03/03/22 @ 16:26 by Gus Powers MD) Acute blood loss anemia (ABLA) Acute hyponatremia Anemia RECEIVED 2 UNITS [facility] 04/2021 RECENT ADMISSION Atrial fibrillation Dx'ed 2019 Follows w/ Dr. Delacruz, on Eliquis CAD (coronary artery disease) Medically managed by cardiology NSTEMI 07/27/20- cath demonstrated small branch vessel disease involving small OM to, not amenable to intervention. CD (celiac disease) "Does not" follow gluten-free diet Chest pressure Constipation Degenerative disc disease Diastolic CHF Diverticulitis 2013 GI bleed reason for Endoscopy History of paroxysmal supraventricular tachycardia with atrial tachycardia Low back pain with sciatica Nausea & vomiting Non-ST elevation AK (NSTEMI) 07/27/20 Ocular migraine Open wound of buttock Sleep apnea CPAP Vertigo Surgical History History of arthroscopy of right shoulder RCR History of cardiac cath 2015, 07/28/20 ([place]) > no stents History of cardioversion x2, most recent 04/2019 History of carpal tunnel release R/L History of cataract surgery R/L History of cholecystectomy History of colonoscopy History of esophagogastroduodenoscopy (EGD) History of foot surgery R/L feet "to straighten toes" History of fracture of left shoulder Plate + screws History of hysterectomy JOANNA + BSO History of incision and drainage Right foot History of tonsillectomy History of total knee replacement Left x2, right x1 S/P transesophageal echocardiogram (JOHANA) Status post placement of implantable loop recorder Implanted 12/2019 - Follows Dr. Yoo > to see Dr. Powers this afternoon for check Family History Mother Family hx of colon cancer Colorectal cancer Brother Prostate cancer Family history of diabetes mellitus Father Dissecting aortic aneurysm Myocardial infarction Grandmother (Maternal) Stroke Other No family history of adverse response to anesthesia Denies family history of Ovarian cancer Breast cancer Social History Smoking Status: Never smoker Tobacco Type: Cigarettes Age Started Using Tobacco: 19; Age Quit Using Tobacco: 27; packs per day: 0.25; Second Hand Exposure: No; Hx Alcohol Use: No Hx Substance Use: No Preferred Language: Pashto Communication Ability: Effective Visual Impairment: No Limitations Hearing Ability: Normal Dental Surgeon Required: No Beliefs That Will Affect Care: None marital status: Current Living Situation: Alone Current Living Situation Comment: just left her 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 Some hard stool recently. No significant nausea or vomiting. Physical Exam Physical Exam: She is alert and oriented x3. Mood affect appear normal. She answered all questions appropriately. HEENT: Sclerae are anicteric. Pupils are equal and reactive to light and accommodation. Extraocular movements were intact. Neuro: Cranial nerves intact Lungs: Lungs are clear to auscultation bilaterally. There are no rales wheezes or rhonchi. She has normal respiratory effort without use of accessory muscles. There is normal pulmonary excursion. Cardiac: The rhythm was regular. S1 and S2 were normal. There are no murmurs on examination. The PMI was not markedly displaced on palpation. Abdomen: The abdomen was soft and nontender. Extremities: Patient has bilateral radial pulses that are equal in intensity. There is no evidence cyanosis or clubbing. Mild lower extremity edema bilaterally. Skin: There are no rashes noted on examination today. Results & Data ([facility]) Vital Signs (Past 12 Hours) Vital Signs Temp Pulse Resp BP Pulse Ox O2 Del Method O2 Flow Rate 03/03/22 14:30 49 L 18 100 03/03/22 14:30 116/50 L 03/03/22 14:00 50 L 13 99 03/03/22 14:00 119/48 L 03/03/22 13:30 51 L 14 99 03/03/22 13:30 124/51 L 03/03/22 13:00 52 L 18 100 Nasal Cannula 4 03/03/22 13:00 123/47 L 03/03/22 12:30 51 L 20 99 Nasal Cannula 4 03/03/22 12:30 114/44 L 03/03/22 12:00 51 L 15 100 03/03/22 12:00 119/45 L 03/03/22 11:34 54 L 19 100 03/03/22 11:34 124/45 L 03/03/22 11:30 53 L 13 100 03/03/22 11:00 53 L 15 100 03/03/22 10:30 51 L 17 100 03/03/22 10:00 52 L 14 100 03/03/22 10:00 130/49 L 03/03/22 09:30 54 L 14 100 03/03/22 09:30 137/51 L 03/03/22 09:00 50 L 16 130/47 L 100 03/03/22 08:30 55 L 22 137/61 100 03/03/22 08:47 56 L 100 Nasal Cannula 4 03/03/22 08:10 55 L 24 135/52 L 100 Nasal Cannula 4 03/03/22 07:59 74 L Room Air 03/03/22 08:01 36.8 C 55 L 20 104/54 L 98 Room Air Laboratory Results Abnormal Lab Results 03/03/22 03/03/22 03/03/22 08:00 08:00 08:00 WBC 6.95 RBC 3.31 L Hgb 10.7 L Hct 31.5 L MCV 95.2 MCH 32.3 MCHC 34.0 RDW Std Deviation 49.3 H RDW Coeff of Malinda 14.1 Plt Count 179 MPV 12.0 Immature Gran % (Auto) 0.3 Neut % (Auto) 30.9 Lymph % (Auto) 56.5 [place] % (Auto) 10.5 Eos % (Auto) 0.9 Baso % (Auto) 0.9 Neut # (Auto) 2.15 Lymph # (Auto) 3.93 H [place] # (Auto) 0.73 Eos # (Auto) 0.06 Baso # (Auto) 0.06 Immature Gran # (Auto) 0.02 Acanthocytes (Spur) 1+ D-Dimer 520 H* Sodium 138 Potassium 3.6 Chloride 102 Carbon Dioxide 30 Anion Gap 6 BUN 19 Creatinine 1.01 Est Cr Clr Drug Dosing Not Reportable Est GFR ( Amer) 62.6 Est GFR (Non-Af Amer) 54.0 BUN/Creatinine Ratio 18.8 Glucose 89 Calcium 9.3 Total Bilirubin 0.4 AST 24 ALT 17 Alkaline Phosphatase 74 Troponin I High Sens 6.1 B-Natriuretic Peptide Total Protein 6.5 Albumin 3.8 Globulin 2.7 Albumin/Globulin Ratio 1.4 Lipase 11 SARS-CoV-2, RNA, NAAT 03/03/22 03/03/22 03/03/22 08:00 11:00 14:07 WBC RBC Hgb Hct MCV MCH MCHC RDW Std Deviation RDW Coeff of Malinda Plt Count MPV Immature Gran % (Auto) Neut % (Auto) Lymph % (Auto) [place] % (Auto) Eos % (Auto) Baso % (Auto) Neut # (Auto) Lymph # (Auto) [place] # (Auto) Eos # (Auto) Baso # (Auto) Immature Gran # (Auto) Acanthocytes (Spur) D-Dimer Sodium Potassium Chloride Carbon Dioxide Anion Gap BUN Creatinine Est Cr Clr Drug Dosing Est GFR ( Amer) Est GFR (Non-Af Amer) BUN/Creatinine Ratio Glucose Calcium Total Bilirubin AST ALT Alkaline Phosphatase Troponin I High Sens 5.4 B-Natriuretic Peptide 105 H Total Protein Albumin Globulin Albumin/Globulin Ratio Lipase SARS-CoV-2, RNA, NAAT NEGATIVE Diagnostic Findings 1. Dobutamine stress echo 05/06/11: Negative for ischemia at 89% MPHR. Positive ECG. No chest pain. Normal LV size and systolic function. Mild MR. 2. Dobutamine stress echo 07/03/12: Negative at 93% MPHR. EF 60%. Mild MR. 3. CTA of aorta 12/24/12: No aneurysm reported. 4. Holter 01/06/2014: Sinus rhythm with average heart rate 74 bpm. Blunted diurnal heart rate variation. No ectopy. No arrhythmia. Shoulder pain during lifting occurred during normal sinus rhythm. 5. Echo 09/14/2015: Normal LV size, wall motion, systolic function. EF 60%. No significant valvular abnormalities. 6. Dobutamine stress echo 02/23/2016: Abnormal at 100% MPHR suggesting distal LAD ischemia. Apical wall segments appear hypokinetic at peak stress. PVCs. No arrhythmia. Chest pain reported. 7. Cardiac catheterization 03/15/2016: No significant CAD. LVEDP 15mmHg. No aortic stenosis. Normal cardiac output. Normal PCWP. PA pressure 37/11 with mean of 20. 8. Event monitor 04/05/2016 to 05/04/2016: Predominantly sinus rhythm. Paroxysmal SVT and atrial tachycardia. SVT up to 17 beats. No symptoms reported. 9. Echo 10/10/2017: Normal LV size, wall motion, systolic function. EF 60- 65%. No LVH. No significant diastolic dysfunction. Mild to moderate MR. RVSP 31. 10. DC CV 06/21/2018: Elective. One hundred fifty joules converted AFib to sinus rhythm. 11. DC Cardioversion 04/29/2019 [facility]: Elective. AFib converted to sinus rhythm. 12. PFT's 10/02/2019: Nonspecific parallel decrease in FEV1 and FVC. DLCO mildly reduced. 13. Echo 10/04/2019: Normal LV size, wall motion, systolic function. EF 60- 65%. Mild MR. RVSP 38. Sinus bradycardia in the 50s. 14. Event monitor 09/27/2019 to 10/10/2019: Predominantly sinus rhythm with average heart rate 67 beats per minute. One episode of nonsustained SVT (14 beats) at 148 beats per minute. PACs. To on describe symptomatic episodes occurred during sinus rhythm. 15. Loop recorder 12/05/2019: [employer] loop recorder implanted by Dr. Powers. Implanted for syncope. 16. Echo 07/28/2020: Normal LV size, wall motion and systolic function. EF 60- 65%. Mild LVH. Mild MR. 17. Cardiac cath 07/28/2020: No significant coronary artery disease of major epicardial vessels. Small branch vessel disease with severe disease in small OM2 prior to mid segment occlusion (vessel < 2 mm).LVEDP 14. MR 1+. 18. JOHANA guided cardioversion 02/15/2021: No thrombus detected in left atrial appendage. Normal LV systolic function. EF 60-65%. Mild MR. Successful conversion of atrial fibrillation to sinus rhythm. 19. Echo 07/09/2021 [facility]: Normal LV size, wall motion, systolic function. EF 60-65%. No LVH. Mild MR. RVSP 38. 20. Echo 12/08/2021: Limited views. Normal LV systolic function with ejection fraction of 55-60%. Mild aortic regurgitation. Mild inferior vena cava dilation. Chest x-ray was obtained the time admission which did not reveal any acute cardiopulmonary process. PG Care Time/CCT Total # of Minutes Spent Total Time Spent with Patient: Total time spent is greater than 50% in coordination of care (as documented) at patient's floor/unit and/or counseling patient: Coding Level of Care Code INT OBSERVATION CARE 70M LVL 3 Diagnoses Hypoxia R09.02 Mitral regurgitation I34.0 Bradycardia R00.1 CAD (coronary artery disease) I25.10 Syncope R55 Atrial fibrillation I48.91
[2022-03-03] MEDS: APIXABAN 5 MG TABLET PO SCH (20:31)
[2022-03-03] MEDS: DICYCLOMINE HCL 10 MG CAP PO SCH (20:33)
[2022-03-03] MEDS: RIVASTIGMINE TARTRATE 1.5 MG CAP PO SCH (20:33)
[2022-03-03] MEDS: MEMANTINE HCL 10 MG TAB PO SCH (20:34)
--- NOTE | 2022-03-03 20:44 | XRay Report ---
KUB CLINICAL HISTORY: Constipation. FINDINGS: 3 AP, portable, supine abdominal radiographs are compared to study dated 01/09/2022 and [place] [facility] with abdominal CT dated 12/09/2021. There is a nonobstructed abdominal bowel gas pattern. Mild f ecal retention is seen throughout the colon. No evidence of intraperitoneal free air is seen on these supine images. Cholecystectomy clips are noted in the right upper quadrant. Phleboliths are seen dannielle ng the course of the right gonadal vein. The skeletal structures are osteopenic and appear intact. Th ere is moderate lumbosacral spondylosis. The lung bases are clear as imaged. IMPRESSION: Nonobstructed abdominal bowel gas pattern noting mild colonic fecal retention. Electronically signed by: Michael Smith M.D. 03/03/2022 8:42 PM
--- NOTE | 2022-03-03 20:52 | Electrocardiogram Report ---
Test Reason : Blood Pressure : / mmHG Vent. Rate : 055 BPM Atrial Rate : 055 BPM P-R Int : 176 ms QRS Dur : 096 ms QT Int : 488 ms P-R-T Axes : 082 062 061 degrees QTc Int : 466 ms Sinus bradycardia Otherwise normal ECG When compared with ECG of 07-JAN-2022 00:35, No significant change was found Confirmed by Gus Powers [id number] on 03/03/2022 8:52:11 PM Referred By: REFERRED SELF Confirmed By:Leon Powers
[2022-03-03] MEDS ORDERED: ROSUVASTATIN CALCIUM 20 MG TAB PO SCH (21:00)
[2022-03-03] MEDS ORDERED: AMIODARONE 200 MG TAB PO SCH (21:00)
[2022-03-04] MEDS ORDERED: PANTOprazole 40 MG TAB PO SCH (06:30)
[2022-03-04 08:22] LABS: Hematocrit (blood only) 32.8 % (34.1-44.9); Hemoglobin 11.2 g/dl (12.0-16.0); Mean Corpuscular Hemoglobin 33.2 pg (25.0-34.0); Mean Corpuscular Hgb Conc 34.1 g/dL (32.0-36.0); Mean Corpuscular Volume 97.3 fL (80.0-100.0); Mean Platelet Volume 12.1 fL (9.4-12.3); Platelet Count 196 K/uL (130-400); RDW Coefficient of Variation 14.2 % (11.5-14.5); RDW Standard Deviation 50.7 fL (36.4-46.3); Red Blood Count 3.37 M/uL (3.93-5.22); White Blood Count 4.67 K/ul (4.8-10.8)
[2022-03-04 08:46] LABS: BUN Creatinine Ratio 15.9 (10-20); Calcium 8.9 mg/dl (8.5-10.1); Creatinine Clr Calc Pharmacy 46.7 ml/min; Est GFR (African American) 58.4 ml/min; Est GFR (Non-African American) 50.4 ml/min; Potassium 3.4 mmol/L (3.5-5.1)
[2022-03-04] MEDS ORDERED: CYANOCOBALAMIN (B-12) 500 MCG TABLET PO SCH (09:00)
[2022-03-04] MEDS ORDERED: FUROSEMIDE 80 MG TAB PO SCH (09:00)
[2022-03-04] MEDS ORDERED: POTASSIUM CHLORIDE CRTAB 20 MEQ TABCR PO SCH (09:00)
[2022-03-04] MEDS ORDERED: CHOLECALCIFEROL 1,000 UNITS 25 MCG TAB PO SCH (09:00)
[2022-03-04] MEDS ORDERED: DOCUSATE SODIUM 100 MG CAP PO SCH (09:00)
[2022-03-04] MEDS ORDERED: CALCIUM CARBONATE 1250MG TAB PO SCH (09:00)
[2022-03-04] MEDS: RIVASTIGMINE TARTRATE 1.5 MG CAP PO SCH (09:28)
[2022-03-04] MEDS: MEMANTINE HCL 10 MG TAB PO SCH (09:28)
[2022-03-04] MEDS: APIXABAN 5 MG TABLET PO SCH (09:29)
[2022-03-04] MEDS: busPIRone 5 MG TAB PO SCH (09:29)
[2022-03-04] MEDS: DICYCLOMINE HCL 10 MG CAP PO SCH (09:29)
[2022-03-04] MEDS: ASPIRIN 81 MG ECTAB PO SCH (09:30)
[2022-03-04] MEDS: POTASSIUM CHLORIDE / WTR 10 MEQ/100 ML PLCT IV SCH ×2 (10:36→11:41)
--- NOTE | 2022-03-04 15:11 | Discharge Summary ---
Discharge Summary Date of Service March 04, 2022 Admission HPI Per Admitting Provider 76-year-old female with known coronary disease which is small vessel and not amenable to intervention per last cardiac catheterization in 2020 who presents with chest pain 6 pound weight gain and hypoxia according to ER reports. Patient's chest pain was relieved with nitroglycerin in the ER patient denies medical indiscretion. She typically follows with Dr. Jacky Delacruz last being seen in cardiology clinic on February 17 at which time no changes were made in her medical regiment. She is a history of diastolic heart failure which was stable at that visit. She is on amiodarone for atrial fibrillation and chronic anticoagulation with apixaban D-dimer is 520 normal being 500 her hypoxia if caused by PE should be from a massive PE which be unlikely on apixaban and also unlikely given the only moderate elevation of D-dimer we will not pursue CT angiography. Currently COVID testing is pending Edema has been present intermittently in this patient stay throughout the record Admission Exam Per Admitting Provider The patient appeared well nourished and normally developed. Vital signs as documented. Head exam is normocephalic atraumatic Neck is without JVD, thyromegaly, or carotid bruits. Lungs are clear to auscultation, no focal loss of breath sounds Cardiac exam, Rhythm is bradycardic.. No murmurs, rubs or gallops. Abdominal exam reveals normal bowel sounds, soft non tender, no masses Extremities are with 2+ edema bilaterally. She has no muscular tenderness no cords. This edema was noted on a previous admission also Neurologic exam is alert and oriented, no focal loss of strength or sensation Skin is without bruises or rashes Psychologically is without concerns for anxiety or depression. Principal Dx & Hospital Course #1 = Principal Diagnosis (1) Hypoxia: Patient had a brief bout of hypoxia on presentation accompanied with chest pain. The chest pain was relieved on nitroglycerin hypoxia was remedied with supplemental oxygen which subsequently has been tapered fairly easily. Echo without evidence of wall motion abnormality. Troponins negative. Received one IV dose of Lasix, transitioned back to home PO dose thereafter without chest pain or SOB. (2) Bradycardia: Patient has sinus bradycardia she is on amiodarone 200 at bedtime we will consult cardiology to determine if her dose should be reduced further. Patient has had a recent echocardiogram December 2021 with preserved ejection fraction. She does have known coronary artery disease distal and not amenable to intervention we will trend her troponins and if there is escalation of troponin from presentation we will consider repeating echocardiogram (3) CAD (coronary artery disease): Patient with coronary artery disease as mentioned in with catheterization in 2020 with distal disease. Continue rosuvastatin. (4) Afib: Patient is in sinus rhythm maintained by amiodarone anticoagulated with apixaban. Amiodarone decreased to 100mg daily on discharge after discussion with Cardiology. Follow up outpatient. (5) Chronic diastolic CHF (congestive heart failure): Daughter reported 6 lbs weight gain, increase in pitting edema to bilateral ankles. Discussed adherece to JUAN hose today for peripheral edema and continuing Lasix at home dosing for CHF. Low salt diet. (6) Current use of nursing home anticoagulation: Patient is currently on apixaban. She has had iron deficiency anemia in the past. Her hemoglobin is 10.7 and that is near its usual range for her. Plan Plan: discharge home with scare by daughter Discharge Exam Constitutional WD/WN, vitals as above Respiratory normal respiratory effort, lungs clear to auscultation Cardiovascular RRR no murmur, pitting edema bilateral LE 1+ Updated Medication List Medication Instructions Recorded Confirmed Type docusate sodium 100 mg capsule 300 mg PO QAM 04/15/18 03/03/22 History calcium carbonate 600 mg calcium 1,200 mg PO QAM 06/08/19 03/03/22 History (1,500 mg) tablet (Calcium) cholecalciferol (vitamin D3) 25 1,000 unit PO QAM 06/08/19 03/03/22 History mcg (1,000 unit) capsule (Vitamin D3) apixaban 5 mg tablet (Eliquis) 5 mg PO BID #180 tabs 10/08/20 03/03/22 Rx estradiol 0.075 mg/24 hr weekly 1 patch topical YARBROUGH #4 ea 02/10/21 03/03/22 Rx transdermal patch nitroglycerin 0.4 mg sublingual 0.4 mg sublingual Q5M PRN chest 09/25/21 03/03/22 Rx tablet (Nitrostat) pain #20 tabs memantine 10 mg tablet (Namenda) 10 mg PO BID #180 tabs 11/11/21 03/03/22 Rx rivastigmine tartrate 3 mg capsule 3 mg PO BID #180 caps 12/03/21 03/03/22 Rx cyanocobalamin (vitamin B-12) 500 mcg PO QAM 12/08/21 03/03/22 History 1,000 mcg/15 mL oral liquid buspirone 5 mg tablet 5 mg PO TID #90 tabs 12/20/21 03/03/22 Rx pantoprazole 40 mg tablet,delayed 40 mg PO QAM #90 tabs 01/05/22 03/03/22 Rx release dicyclomine 10 mg capsule 10 mg PO BID #20 caps 01/10/22 03/03/22 Rx potassium chloride 20 mEq 20 meq PO DAILY #30 tabs 01/18/22 03/03/22 Rx tablet,extended release furosemide 40 mg tablet (Lasix) 80 mg PO QAM #180 tabs 02/15/22 03/03/22 Rx rosuvastatin 40 mg tablet (Crestor) 40 mg PO HS #90 tabs 02/21/22 03/03/22 Rx amiodarone 200 mg tablet 100 mg PO HS #30 tabs 03/04/22 Rx Hospital Stay Data Consultations 03/03/22 10:57 ED Decision to Admit Stat 03/03/22 13:58 Consult Cardiology Routine Diagnostic Imagining Performed 03/03/22 08:29 CT head/brain wo con Stat Discharge Instructions Given to Patient (Per Discharging Provider) You were admitted to the hospital for evaluation of chest pain and trouble breathing. You had a chest XRay which did not show evidence of pneumonia or heart failure exacerbation. You had your heart monitored and heart labwork checked,which did not show evidence of a heart attack. Your bottom was looked at, and your wound looked pretty good, it did not need to be scraped and a new dressing was put on. We were able to schedule you an appointment with your primary care doctor on 03/11/2022 at 9AM. You should get contacted by the wound care clinic regarding rescheduling your wound care visit. You should have close follow up with the Cardiology office, please call Dr. Delacruz's office for follow up of your chest pressure sensation. Your amiodarone medication was changed. Dr. Powers decreased your dose to 100 milligrams daily. This is half of the dose you were on at home. It is important that you wear your JUAN stockings every day except when you are in bed. These will help keep your fluid down. Total Time Total Time Spent Total Time Spent (In Minutes): 45 minutes Coding Level of Care Code 61018 OBS Care - Discharge Diagnoses Hypoxia R09.02 Bradycardia R00.1 CAD (coronary artery disease) I25.10 Afib I48.91 Atrial fibrillation type: unspecified Chronic diastolic CHF (congestive heart failure) I50.32 Current use of nursing home anticoagulation Z79.01
--- NOTE | 2022-03-04 17:06 | Cardiology Progress Note ---
Date of Service March 04, 2022 Assessment & Plan (1) Hypoxia: (2) Mitral regurgitation: (3) Bradycardia: (4) CAD (coronary artery disease): (5) Syncope: (6) Atrial fibrillation: Plan 1. Hypoxia: resolved. Possibly related to some transient mild pulmonary edema. 2. Diastolic heart failure: Continue current outpatient medical regimen. 3. Atrial fibrillation: No clinical recurrence. 4. Valvular heart disease: Mild to moderate. Mild aortic insufficiency. Not contributing to her current symptoms. This can be followed over time. 5. Chest pain: Not related to acute coronary syndrome. No recurrence. 6. Bradycardia: Amiodarone reduced 100 mg daily. 7. Syncope: Remote. No recent episodes. The patient ready for discharge. Symptoms appear to have been resolved. Possibly related some mild I transient pulmonary edema. She will continue her usual outpatient medical regimen. However, I think we can reduce the amiodarone to 100 mg daily given her resting bradycardia. Admission and Anticipated Discharge Date Admission Date: March 03, 2022 Subjective 7 in the patient claimed he feeling well. Some very small residual headache from yesterday. Breathing is back to baseline. No significant dizziness or lightheadedness. She has been ambulatory around her room without new symptoms. Review of Systems Review of Systems: Per HPI Physical Exam Physical Exam: She is alert and oriented x3. Mood affect appear normal. She answered all questions appropriately. HEENT: Sclerae are anicteric. Pupils are equal and reactive to light and accommodation. Extraocular movements were intact. Neuro: Cranial nerves intact Lungs: Lungs are clear to auscultation bilaterally. There are no rales wheezes or rhonchi. She has normal respiratory effort without use of accessory muscles. There is normal pulmonary excursion. Cardiac: The rhythm was regular. S1 and S2 were normal. There are no murmurs on examination. The PMI was not markedly displaced on palpation. Extremities: Patient has bilateral radial pulses that are equal in intensity. There is no evidence cyanosis or clubbing. Mild lower extremity edema bilaterally. wearing surgical stockings Skin: There are no rashes noted on examination today. Results & Data ([facility]) Vital Signs (Past 12 Hours) Vital Signs Temp Pulse Resp BP Pulse Ox O2 Del Method 03/04/22 15:54 36.3 C L 47 L 18 113/64 100 03/04/22 15:47 36.3 C L 47 L 18 113/64 100 03/04/22 08:00 Room Air 03/04/22 11:19 36.3 C L 47 L 18 113/64 100 Room Air 03/04/22 07:02 36.4 C L 50 L 16 107/54 L 99 Room Air Laboratory Results Abnormal Lab Results 03/03/22 03/04/22 03/04/22 22:30 07:29 07:29 WBC 4.67 L RBC 3.37 L Hgb 11.2 L Hct 32.8 L MCV 97.3 MCH 33.2 MCHC 34.1 RDW Std Deviation 50.7 H RDW Coeff of Malinda 14.2 Plt Count 196 MPV 12.1 Sodium 142 Potassium 3.4 L Chloride 104 Carbon Dioxide 34 H Anion Gap 4 BUN 17 Creatinine 1.07 Est Cr Clr Drug Dosing 46.7 Est GFR ( Amer) 58.4 Est GFR (Non-Af Amer) 50.4 BUN/Creatinine Ratio 15.9 Glucose 96 Calcium 8.9 Troponin I High Sens 6.3 PG Care Time/CCT Total # of Minutes Spent Total Time Spent with Patient: Total time spent is greater than 50% in coordination of care (as documented) at patient's floor/unit and/or counseling patient: Coding Level of Care Code 63574 Subseq Hosp Care Lvl 2 Diagnoses Hypoxia R09.02 Mitral regurgitation I34.0 Bradycardia R00.1 CAD (coronary artery disease) I25.10 Syncope R55 Atrial fibrillation I48.91
--- NOTE | 2022-03-04 20:05 | Electrocardiogram Report ---
Test Reason : Blood Pressure : / mmHG Vent. Rate : 049 BPM Atrial Rate : 049 BPM P-R Int : 176 ms QRS Dur : 092 ms QT Int : 486 ms P-R-T Axes : 079 054 063 degrees QTc Int : 439 ms Sinus bradycardia Otherwise normal ECG When compared with ECG of 03-MAR-2022 07:56, No significant change was found Confirmed by Gus Powers ([id number] on 03/04/2022 8:05:24 PM Referred By: REFERRED SELF Confirmed By:Leon Powers
[2022-03-04] MEDS ORDERED: AMIODARONE 200 MG TAB PO SCH (21:00)
[2022-03-05] MEDS ORDERED: POTASSIUM CHLORIDE CRTAB 20 MEQ TABCR PO SCH (09:00)
== END 2022-03-04 17:30 | disposition home or self-care (01) ==
LOC: ED 07:52 → EDINP 07:52 → SUATTDRO 11:09 → 2S 13:57
DX: I34.0 Nonrheumatic mitral (valve) insufficiency; Z88.1 Allergy status to other antibiotic agents; Z79.899 Other long term (current) drug therapy; Z79.01 Long term (current) use of anticoagulants; R00.1 Bradycardia, unspecified; Z88.0 Allergy status to penicillin; I48.91 Unspecified atrial fibrillation; I25.10 Atherosclerotic heart disease of native coronary artery without angina pectoris; I50.32 Chronic diastolic (congestive) heart failure; R55 Syncope and collapse; Z91.041 Radiographic dye allergy status; R09.02 Hypoxemia; I25.2 Old myocardial infarction

== ENCOUNTER 2022-05-29 17:54 | Observation (INO) ==
--- NOTE | 2022-05-29 18:24 | Emergency Department Note ---
Impression & Plan Syncope and collapse, Nausea ED Provider Note INFORMANT: Patient and daughter ED PROVIDER(S): Jefferson Bartlett MD CHIEF COMPLAINT: Syncope PLAN: Disposition: Admitted Condition: Good Outpatient prescription management: none Referral: None MEDICAL DECISION MAKING: Patient was evaluated. Laboratory testing and ECG performed. Patient had signs of peripheral edema and vital signs were stable so IV fluids were not administered. She had an unremarkable CBC and chemistry panel. Cardiac troponin was negative. The patient's ECG was nonischemic. Cardiac monitoring did not reveal any gross abnormalities. Urinalysis was negative. COVID testing was negative. Patient was reassessed and was noting a headache and was given Tylenol. She was sent for CT imaging and this was negative for any acute process. Given the abrupt onset of the syncope and the patient's history further management in the hospital was felt to be appropriate. Consultation was made with the [facility], Dr. Cheng. Patient was evaluated in the ER admitted for further management. After review of the information above and other included data, I feel the patient requires further management in the hospital. Discussed with marketing strategy manager. Triage Nursing notes reviewed and agree them. Vital Signs: reviewed and remarkable for no significant abnormalities Prior /Outside records reviewed: EMS run sheet reviewed. Patient had mild bradycardia. Differential diagnosis: Infection, dehydration, metabolic abnormality, hypo/hyperglycemia, CHF, e lectrolyte disturbance, anemia, hypoxia, ACS, intracerebral event, toxicologic, neurologic, as well as other pathologies. Diagnostics, as interpreted by me: ECG: Twelve-lead ECG reveals normal sinus rhythm at 64 bpm. Septal Q wave present. No ST elevation or depression. No PACs or PVCs. Cardiac Monitoring: Cardiac monitoring ordered by me: The patient was placed on continuous cardiac monitoring and observed. It revealed a normal sinus rhythm at 62 beats per minute without ectopy or evidence of dysrhythmia. Medical decision rules: none Imaging studies: Chest x-ray. Findings: A chest x-ray was performed and revealed no pneumothorax, effusion, infiltrate, pulmonary edema, free air under the diaphragm, or wide mediastinum. Impression: No acute disease. Head CT: A noncontrast CT scan of the head was performed and was negative for tumor, fracture, intracranial hemorrhage, or other acute pathology. HPI: The patient is a 76year old female who presents to the Emergency Room with complaints of syncope. This started just prior to arrival and is described as relatively sudden onset. Patient states she was feeling well today and then suddenly felt ill, sat down and passed out. Daughter is present and notes that she witnessed the event. Patient was out for about 1 to 2 minutes and then recovered within a minute or so. No postictal period or seizure-like activity described. She was very shaky and shivering. She had chills afterwards but not before. Patient states health has been relatively stable in the recent weeks. She does note some increased fluid in her lower extremities. Daughter does note there has been some increase stress with family situations but does not describe the patient is having any panic or significant stress at the time of the event. The patient also notes the following associated symptoms, chest pain that occurred a few days ago and resolved. Patient also notes that she had nausea after the event. The patient has been given Zofran prehospital for relieving factors. Current pain is rated as 0/10. Pt denies headache, fevers, chills, diaphoresis, visual changes, neck pain, current chest pain, breathing difficulties, vomiting, abdominal pain, back pain, melena, hematochezia, urina ry symptoms, numbness, weakness, lymphadenopathy, rash, or other complaints. PAST MEDICAL HISTORY: See Below, A-fib, CAD, CHF PAST SURGICAL HISTORY: See Below, SOCIAL HISTORY: See Below, lives with family HOME MEDICATIONS: See Below ALLERGIES: See Below VITALS: See Below PHYSICAL EXAMINATION: GENERAL: Awake, tired appearing, in no distress HENT: Normocephalic, atraumatic. Oropharynx unremarkable. EYES: Normal conjunctiva. Sclera non-icteric. NECK: Inspection normal. Non-tender. Supple. No nuchal rigidity. FROM. No masses. RESPIRATORY: Clear to auscultation. No wheezes. No rales. Normal respiratory effort. CARDIAC: Normal rate. Normal rhythm. No murmurs. No rubs. Extremities warm and well perfused. Pulses equal. No JVD. GI: Soft, non-distended. No tenderness to palpation. No rebound or guarding. No masses. RECTAL: Deferred. MUSCULOSKELETAL: Atraumatic. Chest examination reveals no tenderness. The back is symmetrical on inspection without obvious abnormality. There is no CVA tenderness to palpation. No joint edema. LOWER EXTREMITIES: Calves are equal size bilaterally and non-tender. 2-3+ edema. No discoloration. NEURO: Normal sensorium. No sensory or motor deficits noted. SKIN: No rash or jaundice noted. Past Med/Surg History Medical History Acute blood loss anemia (ABLA) Acute hyponatremia Anemia RECEIVED 2 UNITS [facility] 04/2021 RECENT ADMISSION Atypical chest pain CAD (coronary artery disease) Medically managed by cardiology NSTEMI 07/27/20- cath demonstrated small branch vessel disease involving small OM to, not amenable to intervention. CD (celiac disease) "Does not" follow gluten-free diet Chest pressure Chronic diastolic congestive heart failure Constipation Degenerative disc disease Diastolic CHF Diverticulitis 2013 Dyslipidemia GI bleed reason for Endoscopy History of paroxysmal supraventricular tachycardia with atrial tachycardia Hypercholesterolemia Hypertension Low back pain with sciatica Nausea & vomiting Non-ST elevation [place] (NSTEMI) 07/27/20 Obstructive sleep apnea Ocular migraine Open wound of buttock Paroxysmal atrial fibrillation Sleep apnea CPAP Vertigo Surgical History History of arthroscopy of right shoulder RCR History of cardiac cath 2015, 07/28/20 ([place]) > no stents History of cardioversion x2, most recent 04/2019 History of carpal tunnel release R/L History of cataract surgery R/L History of cholecystectomy History of colonoscopy History of esophagogastroduodenoscopy (EGD) History of foot surgery R/L feet "to straighten toes" History of fracture of left shoulder Plate + screws History of hysterectomy JOANNA + BSO History of incision and drainage Right foot History of tonsillectomy History of total knee replacement Left x2, right x1 S/P transesophageal echocardiogram (JOHANA) Status post placement of implantable loop recorder Implanted 12/2019 - Follows Dr. Yoo > to see Dr. Powers this afternoon for check Family History Mother Family hx of colon cancer Colorectal cancer Brother Prostate cancer Family history of diabetes mellitus Father Dissecting aortic aneurysm Myocardial infarction Grandmother (Maternal) Stroke Other No family history of adverse response to anesthesia Denies family history of Ovarian cancer Breast cancer Social History Smoking Status: Never smoker Tobacco Type: Cigarettes Age Started Using Tobacco: 19; Age Quit Using Tobacco: 27; packs per day: 0.25; Second Hand Exposure: No; Hx Alcohol Use: No Hx Substance Use: No Preferred Language: Albanian Communication Ability: Effective Visual Impairment: No Limitations Hearing Ability: Normal Senior Accounting Specialist Required: No Beliefs That Will Affect Care: None marital status: Current Living Situation: Alone Current Living Situation Comment: just left her 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; 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[employer]; 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 Feels Safe at Home: Yes Childhood Exposure to Second-Hand Smoke: No Dental Care, Regularly: Yes Seatbelt Use: always Sunscreen Use: Yes Assistive Devices: None Allergies Allergies Allergy/AdvReac Type Severity Reaction Status Date / Time gluten Allergy Intermediate Celiac Verified 05/29/22 21:18 disease latex Allergy Mild Rash Verified 05/29/22 21:18 amoxicillin AdvReac Intermediate Yeast Verified 05/29/22 21:18 infection cefdinir AdvReac Intermediate nausea Verified 05/29/22 21:18 Cephalosporins AdvReac Intermediate Yeast Verified 05/29/22 21:18 infection clavulanic acid AdvReac Intermediate Yeast Verified 05/29/22 21:18 infection prednisone AdvReac Intermediate Anxiety Verified 05/29/22 21:18 Home Meds Home Medications Medication Instructions Recorded Confirmed docusate sodium 100 mg capsule 300 mg PO QAM 04/15/18 05/29/22 calcium carbonate 600 mg calcium 1,200 mg PO QAM 06/08/19 05/29/22 (1,500 mg) tablet (Calcium) cholecalciferol (vitamin D3) 25 1,000 unit PO QAM 06/08/19 05/29/22 mcg (1,000 unit) capsule (Vitamin D3) cyanocobalamin (vitamin B-12) 500 mcg PO QAM 12/08/21 05/29/22 1,000 mcg/15 mL oral liquid Previous Rx's Medication Instructions Recorded nitroglycerin 0.4 mg sublingual 0.4 mg sublingual Q5M PRN chest 09/25/21 tablet (Nitrostat) pain #20 tabs memantine 10 mg tablet (Namenda) 10 mg PO BID #180 tabs 11/11/21 pantoprazole 40 mg tablet,delayed 40 mg PO QAM #90 tabs 01/05/22 release potassium chloride 20 mEq 20 meq PO DAILY #30 tabs 01/18/22 tablet,extended release rosuvastatin 40 mg tablet (Crestor) 40 mg PO HS #90 tabs 02/21/22 amiodarone 200 mg tablet 100 mg PO HS #30 tabs 03/04/22 buspirone 5 mg tablet 5 mg PO BID #90 tabs 03/07/22 estradiol 0.075 mg/24 hr weekly See Rx Instructions .Route 04/11/22 transdermal patch .COMPLEX #4 patches apixaban 5 mg tablet (Eliquis) 5 mg PO BID #180 tabs 04/29/22 mirtazapine 15 mg tablet 15 mg PO DAILY #90 tabs 05/05/22 rivastigmine tartrate 6 mg capsule 6 mg PO BID #180 caps 05/17/22 bumetanide 2 mg tablet 2 mg PO BID #60 tabs 05/27/22 Results & Data (ED) Vital Signs Vital Signs - 24 hr 05/29/22 18:00 05/29/22 18:15 05/29/22 18:30 Temperature 36.5 C Temperature Source Oral Pulse Rate 64 62 63 Pulse Rate from SpO2 Sensor 63 Respiratory Rate 20 16 Respiratory Effort / Characteristics Non-Labored Spontaneous Respiratory Depth Normal Respiratory Pattern Regular Blood Pressure 148/56 H 146/55 H Blood Pressure Mean 86 85 Blood Pressure Position Lying Pulse Oximetry 96 97 Oxygen Delivery Method Room Air Room Air Sepsis Recent Fever Within 48 Hours No Sepsis New/Unexplained Change in Mental Status N/A Sepsis Action Taken by Nursing No Action Required 05/29/22 19:00 05/29/22 19:30 05/29/22 20:00 Temperature Temperature Source Pulse Rate 60 61 69 Pulse Rate from SpO2 Sensor 60 60 Respiratory Rate 21 22 16 Respiratory Effort / Characteristics Respiratory Depth Respiratory Pattern Blood Pressure 142/54 H 168/65 H 119/59 L Blood Pressure Mean 83 99 79 Blood Pressure Position Pulse Oximetry 97 99 97 Oxygen Delivery Method Room Air Room Air Room Air Sepsis Recent Fever Within 48 Hours Sepsis New/Unexplained Change in Mental Status Sepsis Action Taken by Nursing 05/29/22 20:30 05/29/22 21:00 05/29/22 21:30 Temperature Temperature Source Pulse Rate 58 L 59 L 60 Pulse Rate from SpO2 Sensor 60 Respiratory Rate 15 17 21 Respiratory Effort / Characteristics Respiratory Depth Respiratory Pattern Blood Pressure 140/56 L 112/47 L 121/44 L Blood Pressure Mean 84 68 69 Blood Pressure Position Pulse Oximetry 95 97 93 Oxygen Delivery Method Room Air Room Air Room Air Sepsis Recent Fever Within 48 Hours Sepsis New/Unexplained Change in Mental Status Sepsis Action Taken by Nursing 05/29/22 22:00 05/29/22 22:38 05/29/22 23:00 Temperature Temperature Source Pulse Rate 57 L 58 L 61 Pulse Rate from SpO2 Sensor Respiratory Rate 14 16 Respiratory Effort / Characteristics Respiratory Depth Respiratory Pattern Blood Pressure 116/43 L 128/54 L Blood Pressure Mean 67 78 Blood Pressure Position Pulse Oximetry 96 97 Oxygen Delivery Method Room Air Room Air Sepsis Recent Fever Within 48 Hours Sepsis New/Unexplained Change in Mental Status Sepsis Action Taken by Nursing 05/29/22 23:10 Temperature Temperature Source Pulse Rate 63 Pulse Rate from SpO2 Sensor Respiratory Rate 16 Respiratory Effort / Characteristics Respiratory Depth Respiratory Pattern Blood Pressure Blood Pressure Mean Blood Pressure Position Pulse Oximetry Oxygen Delivery Method Sepsis Recent Fever Within 48 Hours Sepsis New/Unexplained Change in Mental Status Sepsis Action Taken by Nursing Laboratory Data 05/29/22 17:58 05/29/22 17:58 Lab Results 05/29/22 05/29/22 05/29/22 Range/Units 17:58 17:58 17:58 WBC 8.65 (4.8-10.8) K/ul RBC 3.67 L (4.20-5.40) M/uL Hgb 11.6 L (12.0-16.0) g/dl Hct 34.0 L (37.0-47.0) % MCV 92.6 (80.0-100.0) fL MCH 31.6 (25.0-34.0) pg MCHC 34.1 (32.0-36.0) g/dL RDW Std Deviation 46.2 (36.4-46.3) fL RDW Coeff of Malinda 13.6 (11.5-14.5) % Plt Count 241 (130-400) K/uL MPV 11.1 (9.4-12.4) fL Immature Gran % (Auto) 0.1 % Neut % (Auto) 62.4 % Lymph % (Auto) 28.1 % Cooke % (Auto) 8.1 % Eos % (Auto) 0.6 % Baso % (Auto) 0.7 % Neut # (Auto) 5.40 (1.40-6.50) K/uL Lymph # (Auto) 2.43 (1.2-3.4) K/uL Cooke # (Auto) 0.70 H (0.11-0.59) K/uL Eos # (Auto) 0.05 (0-0.50) K/uL Baso # (Auto) 0.06 (0-0.2) K/uL Immature Gran # (Auto) 0.01 (0.01-0.20) K/uL Sodium 139 (136-145) mmol/L Potassium 3.5 (3.5-5.1) mmol/L Chloride 100 (98-107) mmol/L Carbon Dioxide 34 H (21-32) mmol/L Anion Gap 5 (3-11) BUN 13 (6-23) mg/dl Creatinine 0.97 (0.6-1.2) mg/dl Est Cr Clr Drug Dosing 49.8 ml/min Est GFR ( Amer) 65.8 ml/min Est GFR (Non-Af Amer) 56.7 ml/min BUN/Creatinine Ratio 13.4 (10-20) Glucose 104 H (70-99(Fasting)) mg/dl Calcium 9.5 (8.5-10.1) mg/dl Magnesium 2.0 (1.7-2.4) mg/dl Total Bilirubin 0.6 (0.2-1.0) mg/dl AST 29 (13-39) U/L ALT 17 (7-52) U/L Alkaline Phosphatase 85 (34-104) U/L Troponin I High Sens 5.8 (0-14) pg/ml B-Natriuretic Peptide (0-100) pg/ml Total Protein 7.4 (6.0-8.3) gm/dl Albumin 4.3 (3.4-5.0) gm/dl Globulin 3.1 (2.5-4.0) gm/dl Albumin/Globulin Ratio 1.4 (0.9-2) TSH 1.696 (0.300-4.500) uIu/ml Urine Color Urine Appearance (Clear) Urine pH (4.5-7.5) Ur Specific Bicknell (1.000-1.030) Urine Protein (Negative) Urine Glucose (UA) (Negative) Urine Ketones (Negative) Urine Blood (Negative) Urine Nitrite (Negative) Urine Bilirubin (Negative) Urine Urobilinogen (Negative) Ur Leukocyte Esterase (Negative) SARS-CoV-2 (PCR) (Negative) 05/29/22 05/29/22 05/29/22 Range/Units 18:00 18:20 20:28 WBC (4.8-10.8) K/ul RBC (4.20-5.40) M/uL Hgb (12.0-16.0) g/dl Hct (37.0-47.0) % MCV (80.0-100.0) fL MCH (25.0-34.0) pg MCHC (32.0-36.0) g/dL RDW Std Deviation (36.4-46.3) fL RDW Coeff of Malinda (11.5-14.5) % Plt Count (130-400) K/uL MPV (9.4-12.4) fL Immature Gran % (Auto) % Neut % (Auto) % Lymph % (Auto) % Cooke % (Auto) % Eos % (Auto) % Baso % (Auto) % Neut # (Auto) (1.40-6.50) K/uL Lymph # (Auto) (1.2-3.4) K/uL Cooke # (Auto) (0.11-0.59) K/uL Eos # (Auto) (0-0.50) K/uL Baso # (Auto) (0-0.2) K/uL Immature Gran # (Auto) (0.01-0.20) K/uL Sodium (136-145) mmol/L Potassium (3.5-5.1) mmol/L Chloride (98-107) mmol/L Carbon Dioxide (21-32) mmol/L Anion Gap (3-11) BUN (6-23) mg/dl Creatinine (0.6-1.2) mg/dl Est Cr Clr Drug Dosing ml/min Est GFR ( Amer) ml/min Est GFR (Non-Af Amer) ml/min BUN/Creatinine Ratio (10-20) Glucose (70-99(Fasting)) mg/dl Calcium (8.5-10.1) mg/dl Magnesium (1.7-2.4) mg/dl Total Bilirubin (0.2-1.0) mg/dl AST (13-39) U/L ALT (7-52) U/L Alkaline Phosphatase (34-104) U/L Troponin I High Sens (0-14) pg/ml B-Natriuretic Peptide 117 H (0-100) pg/ml Total Protein (6.0-8.3) gm/dl Albumin (3.4-5.0) gm/dl Globulin (2.5-4.0) gm/dl Albumin/Globulin Ratio (0.9-2) TSH (0.300-4.500) uIu/ml Urine Color Yellow Urine Appearance Clear (Clear) Urine pH 8.5 H (4.5-7.5) Ur Specific Bicknell 1.007 (1.000-1.030) Urine Protein Negative (Negative) Urine Glucose (UA) Negative (Negative) Urine Ketones Negative (Negative) Urine Blood Negative (Negative) Urine Nitrite Negative (Negative) Urine Bilirubin Negative (Negative) Urine Urobilinogen Negative (Negative) Ur Leukocyte Esterase Negative (Negative) SARS-CoV-2 (PCR) NEGATIVE (Negative) Administered Medications Discontinued Medications Acetaminophen (Acetaminophen 500 Mg Tab) 1,000 mg PO NOW STA Stop: 05/29/22 19:37 Last Admin: 05/29/22 19:52 Dose: 1,000 mg Documented By: BEZ Imaging Data Radiologist's Impression: Chest X-Ray 05/29/22 18:16 XR chest 1V portable HISTORY: syncope COMPARISON: Chest 03/03/2022. FINDINGS: No pneumothorax. No pleural effusions. No focal lung consolidations to suggest a pneumonia. No evidence for pulmonary edema. There is mild emphysema. Postoperative changes again noted within the left shoulder. There is a loop recorder overlying the left heart border. This remains unchanged. IMPRESSION: No significant change compared to the prior study. No acute process. ACT 112: Negative or not required by law. Electronically signed by: Cameron Ruiz M.D. 05/29/2022 6:35 PM Discharge Plan Visit Data Chief Complaint: Illness Stated Complaint: ILLNESS, BRADYCARDIA ED Provider: Jefferson Bartlett Discharge Problem: Syncope and collapse, Nausea Patient Disposition: Admitted As Inpatient Discharge Instructions Interventions: ED Discharge Assessment Last Done: 05/29/22 23:47
[2022-05-29 18:32] LABS: Appearance Urine Clear (Clear); Bilirubin Urine Negative (Negative); Blood Urine Negative (Negative); Color Urine Yellow; Glucose Urine UA Negative (Negative); Ketones Urine Negative (Negative); Leukocyte Esterase Urine Negative (Negative); Nitrite Urine Negative (Negative); Protein Urine Negative (Negative); Specific Gravity Urine 1.007 (1.000-1.030); Urobilinogen Urine Negative (Negative); pH Urine 8.5 (4.5-7.5)
--- NOTE | 2022-05-29 18:36 | XRay Report ---
XR chest 1V portable HISTORY: syncope COMPARISON: Chest 03/03/2022. FINDINGS: No pneumothorax. No pleural effusions. No focal lung consolidations to suggest a pneumonia. No evidence for pulmonary edema. There is mild emphysema. Postoperative changes again noted within t he left shoulder. There is a loop recorder overlying the left heart border. This remains unchanged. IMPRESSION: No significant change compared to the prior study. No acute process. ACT 112: Negative or not required by law. Electronically signed by: Cameron Ruiz M.D. 05/29/2022 6:35 PM
[2022-05-29 18:39] LABS: Basophils # (auto) 0.06 K/uL (0-0.2); Basophils % (auto) 0.7 %; Eosinophils # (auto) 0.05 K/uL (0-0.50); Eosinophils % (auto) 0.6 %; Hemoglobin 11.6 g/dl (12.0-16.0); Immature Granulocytes # (auto) 0.01 K/uL (0.01-0.20); Immature Granulocytes % (auto) 0.1 %; Lymphocytes # (auto) 2.43 K/uL (1.2-3.4); Lymphocytes % (auto) 28.1 %; Mean Corpuscular Hemoglobin 31.6 pg (25.0-34.0); Mean Corpuscular Hgb Conc 34.1 g/dL (32.0-36.0); Mean Corpuscular Volume 92.6 fL (80.0-100.0); Mean Platelet Volume 11.1 fL (9.4-12.4); Monocytes % (auto) 8.1 %; Neutrophils % (auto) 62.4 %; Platelet Count 241 K/uL (130-400); RDW Coefficient of Variation 13.6 % (11.5-14.5); RDW Standard Deviation 46.2 fL (36.4-46.3); Red Blood Count 3.67 M/uL (4.20-5.40); White Blood Count 8.65 K/ul (4.8-10.8)
[2022-05-29 18:49] LABS: Albumin Globulin Ratio 1.4 (0.9-2); Albumin Level 4.3 gm/dl (3.4-5.0); BUN Creatinine Ratio 13.4 (10-20); Bilirubin,Total 0.6 mg/dl (0.2-1.0); Calcium 9.5 mg/dl (8.5-10.1); Creatinine Clr Calc Pharmacy 49.8 ml/min; Est GFR (African American) 65.8 ml/min; Est GFR (Non-African American) 56.7 ml/min; Globulin 3.1 gm/dl (2.5-4.0); Potassium 3.5 mmol/L (3.5-5.1); Total Protein 7.4 gm/dl (6.0-8.3)
[2022-05-29 18:56] LABS: Troponin I High Sensitivity 5.8 pg/ml (0-14)
[2022-05-29] MEDS ORDERED: ACETAMINOPHEN 500 MG TAB PO STA (19:36)
--- NOTE | 2022-05-29 23:19 | History & Physical Report ---
Date of Service May 29, 2022 Assessment & Plan (1) Syncope and collapse: Plan: 76-year-old female with history of hypertension, hyperlipidemia, coronary artery disease, paroxysmal atrial fibrillation and dementia presenting with concern for possible syncopal event. Patient is currently being worked up for syncope. She has a loop recorder in placelast data transfer 05/04/2022 revealed no arrhythmic events. Sinus bradycardia present. Episode described above was quite different than any other event of syncope the patient has experienced. She has no history of seizure. Concerning for such when daughter describes diffuse body shaking and confusion. Patient had a limited echocardiogram performed 12/08/2021 which revealed normal LV function. Mild aortic regurgitation. EF of 55 to 60% Observation to medical telemetry Check EEG Check MRI with seizure protocol Repeat troponin in the morning (2) Chronic diastolic CHF (congestive heart failure): Plan: Patient with chronic diastolic heart failure. She has been having progressive bilateral lower extremity edema for the last several days. She believes that her weight is up as welllast weighed on Monday at 155 pounds. She has been transitioned to Bumex however, has been unable to fill the prescription due to the pharmacy being out of this particular medication. She has been taking her daily Lasix as she awaits her Bumex prescription. She denies worsening shortness of breath. Adequate oxygenation on room air We will give Bumex 1 mg IV now Bumex 2 mg p.o. twice daily to start tomorrow morning Monitor intake and output Monitor daily weights (3) CAD (coronary artery disease): Plan: Patient denies brief episode of chest pain this afternoon. No additional chest pain. Troponin is negative. EKG with no acute ischemic changes Telemetry monitoring Continue Crestor 40 mg p.o. nightly Repeat troponin in the morning (4) Afib: Plan: Patient presently in normal sinus rhythm. Anticoagulated on apixaban 5 mg p.o. twice daily Continue amiodarone 100 mg p.o. nightly Continue apixaban 5 mg p.o. twice daily (5) Dementia: Plan: Patient lives with her . Continue rivastigmine 6 mg p.o. twice daily Continue memantine 10 mg p.o. twice daily Continue mirtazapine 15 mg p.o. daily Continue buspirone 5 mg p.o. twice daily F/E/NBumex x1 dose IV then p.o. twice daily, monitor electrolytes and replete as needed, heart healthy diet as tolerated with aspiration precautions Prophylaxiscontinue home apixaban 5 mg p.o. twice daily, continue home Protonix 40 mg p.o. daily CodeDNR/DNI per discussion with patient Dispositionobservation to medical telemetry History of Present Illness Chief Complaint: Syncope versus seizure Primary Care Provider: Sravan Figueroa MD Ximena Maxwell is a 76-year-old female with history of CAD, chronic diastolic heart failure, hypertension, hyperlipidemia, dementia and paroxysmal atrial fibrillation on apixaban anticoagulation presenting with possible syncopal event. Patient was at a friend's house this afternoon with some family members. Around 16:30 the patient's daughter noticed that the patient was possibly passed out or sleeping while sitting on the couch. Later when they were driving home the patient developed some left-sided chest pain, dizziness, lightheadedness and feeling as though she was going to pass out. She also reports feeling hot and slightly disoriented "like the car was driving backwards". When they got home, patient was unable to get out of the car and unable to walk. Patient's daughter reports that she was very unsteady on her feet and she was "shaking u ncontrollably" with her arms and her legs. They got her into the house and sat her in a chair. Shortly after she became unresponsive with sonorous respirations. This lasted approximately 1 minute. When the patient woke up she was very confused. Presently she is complaining of a frontal headache specifically over her right eye as well as pain with eye movement. She has had progressive edema of her bilateral lower extremities for the last several days. She has had no additional chest pain. Her dizziness has resolved as well. Patient denies visual disturbance, slurred speech or confusion. No focal numbness/weakness/tingling. No incontinence. No palpitations, cough or shortness of breath. No abdominal pain vomiting or diarrhea. No fever/chills. Recent medication change: Rivastigmine increased to 6 mg p.o. twice daily (from 40 mg p.o. twice daily). Patient took her first dose of 6 mg this morning Bumex prescribed. Patient has not yet received Bumexpharmacy has been out. Daughter has been giving patient her typical dose of Lasix Patient has had a stressful week. Her recently moved back in to the home after living away for the last year. Patient also loss use of her car today presumably due to worsening cognitive function. Patient is upset about this because she has friends that she frequently visits and is afraid that she will not see them anymore. In the ER she is afebrile, hemodynamically stable, no acute distress ER course: Acetaminophen 1000 mg p.o. Allergies Allergy/AdvReac Type Severity Reaction Status Date / Time gluten Allergy Intermediate Celiac Verified 05/29/22 21:18 disease latex Allergy Mild Rash Verified 05/29/22 21:18 amoxicillin AdvReac Intermediate Yeast Verified 05/29/22 21:18 infection cefdinir AdvReac Intermediate nausea Verified 05/29/22 21:18 Cephalosporins AdvReac Intermediate Yeast Verified 05/29/22 21:18 infection clavulanic acid AdvReac Intermediate Yeast Verified 05/29/22 21:18 infection prednisone AdvReac Intermediate Anxiety Verified 05/29/22 21:18 Home Medications Medication Instructions Recorded Confirmed Type docusate sodium 100 mg capsule 300 mg PO QAM 04/15/18 05/29/22 History calcium carbonate 600 mg calcium 1,200 mg PO QAM 06/08/19 05/29/22 History (1,500 mg) tablet (Calcium) cholecalciferol (vitamin D3) 25 1,000 unit PO QAM 06/08/19 05/29/22 History mcg (1,000 unit) capsule (Vitamin D3) nitroglycerin 0.4 mg sublingual 0.4 mg sublingual Q5M PRN chest 09/25/21 05/29/22 Rx tablet (Nitrostat) pain #20 tabs memantine 10 mg tablet (Namenda) 10 mg PO BID #180 tabs 11/11/21 05/29/22 Rx cyanocobalamin (vitamin B-12) 500 mcg PO QAM 12/08/21 05/29/22 History 1,000 mcg/15 mL oral liquid pantoprazole 40 mg tablet,delayed 40 mg PO QAM #90 tabs 01/05/22 05/29/22 Rx release potassium chloride 20 mEq 20 meq PO DAILY #30 tabs 01/18/22 05/29/22 Rx tablet,extended release rosuvastatin 40 mg tablet (Crestor) 40 mg PO HS #90 tabs 02/21/22 05/29/22 Rx amiodarone 200 mg tablet 100 mg PO HS #30 tabs 03/04/22 05/29/22 Rx buspirone 5 mg tablet 5 mg PO BID #90 tabs 03/07/22 05/29/22 Rx estradiol 0.075 mg/24 hr weekly See Rx Instructions .Route 04/11/22 05/29/22 Rx transdermal patch .COMPLEX #4 patches apixaban 5 mg tablet (Eliquis) 5 mg PO BID #180 tabs 04/29/22 05/29/22 Rx mirtazapine 15 mg tablet 15 mg PO DAILY #90 tabs 05/05/22 05/29/22 Rx rivastigmine tartrate 6 mg capsule 6 mg PO BID #180 caps 05/17/22 05/29/22 Rx bumetanide 2 mg tablet 2 mg PO BID #60 tabs 05/27/22 05/29/22 Rx Past Med/Surg History Medical History Acute blood loss anemia (ABLA) Acute hyponatremia Anemia RECEIVED 2 UNITS [facility] 04/2021 RECENT ADMISSION Atypical chest pain CAD (coronary artery disease) Medically managed by cardiology NSTEMI 07/27/20- cath demonstrated small branch vessel disease involving small OM to, not amenable to intervention. CD (celiac disease) "Does not" follow gluten-free diet Chest pressure Chronic diastolic congestive heart failure Constipation Degenerative disc disease Diastolic CHF Diverticulitis 2013 Dyslipidemia GI bleed reason for Endoscopy History of paroxysmal supraventricular tachycardia with atrial tachycardia Hypercholesterolemia Hypertension Low back pain with sciatica Nausea & vomiting Non-ST elevation [place] (NSTEMI) 07/27/20 Obstructive sleep apnea Ocular migraine Open wound of buttock Paroxysmal atrial fibrillation Sleep apnea CPAP Vertigo Surgical History History of arthroscopy of right shoulder RCR History of cardiac cath 2015, 07/28/20 ([place]) > no stents History of cardioversion x2, most recent 04/2019 History of carpal tunnel release R/L History of cataract surgery R/L History of cholecystectomy History of colonoscopy History of esophagogastroduodenoscopy (EGD) History of foot surgery R/L feet "to straighten toes" History of fracture of left shoulder Plate + screws History of hysterectomy JOANNA + BSO History of incision and drainage Right foot History of tonsillectomy History of total knee replacement Left x2, right x1 S/P transesophageal echocardiogram (JOHANA) Status post placement of implantable loop recorder Implanted 12/2019 - Follows Dr. Yoo > to see Dr. Powers this afternoon for check Family History Mother Family hx of colon cancer Colorectal cancer Brother Prostate cancer Family history of diabetes mellitus Father Dissecting aortic aneurysm Myocardial infarction Grandmother (Maternal) Stroke Other No family history of adverse response to anesthesia Denies family history of Ovarian cancer Breast cancer Social History Smoking Status: Never smoker Tobacco Type: Cigarettes Age Started Using Tobacco: 19; Age Quit Using Tobacco: 27; packs per day: 0.25; Second Hand Exposure: No; Hx Alcohol Use: No Hx Substance Use: No Preferred Language: [place] Communication Ability: Effective Visual Impairment: No Limitations Hearing Ability: Normal Black Belt Required: No Beliefs That Will Affect Care: None marital status: Current Living Situation: Alone Current Living Situation Comment: just left her 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; 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[employer]; 3 children Feels Safe at Home: Yes Childhood Exposure to Second-Hand Smoke: No Dental Care, Regularly: Yes Seatbelt Use: always Sunscreen Use: Yes Assistive Devices: None Review of Systems Review of Systems: All systems reviewed & are unremarkable except as noted in HPI & below Physical Exam Physical Exam: General: patient resting comfortably, NAD, non-toxic in appearance, AA&O x 4 with some confusion over date Skin: warm, dry, intact, no rashes or lesions HEENT: NC/AT, PERRL, EOMI, pain with eye movement specifically in the right eye, anicteric sclera, conjunctiva without injection, external ear normal to inspection and nontender, nares patent, moist mucus membranes, dentition intact, no oropharyngeal lesions, neck supple, trachea midline, no LAD, no thyromegaly, no JVD Heart: +S1/S2, regular, no m/r/g Lungs: equal air entry bilaterally, no rales/rhonchi/wheezes Abd: +BS, soft, ND, generalized tenderness without rebound/guarding/peritonitis, no masses/organomegaly/ascites Ext: warm, 2+ pulses in UE/LE bilaterally, no clubbing/cyanosis, 2+ pitting edema bilateral lower extremities to the thighs Neuro: nonfocal, patient AA&O x 4, speech intact, no facial droop, moving all extremities on command with equal strength 5/5 Results & Data Results & Data ([facility]) Vital Signs (Past 12 Hours) Vital Signs Temp Pulse Resp BP Pulse Ox O2 Del Method 05/29/22 22:38 58 L 05/29/22 22:00 57 L 14 116/43 L 96 Room Air 05/29/22 21:30 60 21 121/44 L 93 Room Air 05/29/22 21:00 59 L 17 112/47 L 97 Room Air 05/29/22 20:30 58 L 15 140/56 L 95 Room Air 05/29/22 20:00 69 16 119/59 L 97 Room Air 05/29/22 19:30 61 22 168/65 H 99 Room Air 05/29/22 19:00 60 21 142/54 H 97 Room Air 05/29/22 18:30 63 16 146/55 H 97 Room Air 05/29/22 18:15 62 05/29/22 18:00 36.5 C 64 20 148/56 H 96 Room Air Laboratory Results Laboratory Results WBC 8.65 K/ul (4.8-10.8) 05/29/22 17:58 RBC 3.67 M/uL (4.20-5.40) L 05/29/22 17:58 Hgb 11.6 g/dl (12.0-16.0) L 05/29/22 17:58 Hct 34.0 % (37.0-47.0) L 05/29/22 17:58 MCV 92.6 fL (80.0-100.0) 05/29/22 17:58 MCH 31.6 pg (25.0-34.0) 05/29/22 17:58 MCHC 34.1 g/dL (32.0-36.0) 05/29/22 17:58 RDW Std Deviation 46.2 fL (36.4-46.3) 05/29/22 17:58 RDW Coeff of Malinda 13.6 % (11.5-14.5) 05/29/22 17:58 Plt Count 241 K/uL (130-400) 05/29/22 17:58 MPV 11.1 fL (9.4-12.4) 05/29/22 17:58 Immature Gran % (Auto) 0.1 % 05/29/22 17:58 Neut % (Auto) 62.4 % 05/29/22 17:58 Lymph % (Auto) 28.1 % 05/29/22 17:58 [place] % (Auto) 8.1 % 05/29/22 17:58 Eos % (Auto) 0.6 % 05/29/22 17:58 Baso % (Auto) 0.7 % 05/29/22 17:58 Neut # (Auto) 5.40 K/uL (1.40-6.50) 05/29/22 17:58 Lymph # (Auto) 2.43 K/uL (1.2-3.4) 05/29/22 17:58 [place] # (Auto) 0.70 K/uL (0.11-0.59) H 05/29/22 17:58 Eos # (Auto) 0.05 K/uL (0-0.50) 05/29/22 17:58 Baso # (Auto) 0.06 K/uL (0-0.2) 05/29/22 17:58 Immature Gran # (Auto) 0.01 K/uL (0.01-0.20) 05/29/22 17:58 Sodium 139 mmol/L (136-145) 05/29/22 17:58 Potassium 3.5 mmol/L (3.5-5.1) 05/29/22 17:58 Chloride 100 mmol/L (98-107) 05/29/22 17:58 Carbon Dioxide 34 mmol/L (21-32) H 05/29/22 17:58 Anion Gap 5 (3-11) 05/29/22 17:58 BUN 13 mg/dl (6-23) 05/29/22 17:58 Creatinine 0.97 mg/dl (0.6-1.2) 05/29/22 17:58 Est Cr Clr Drug Dosing 49.8 ml/min 05/29/22 17:58 Est GFR ( Amer) 65.8 ml/min 05/29/22 17:58 Est GFR (Non-Af Amer) 56.7 ml/min 05/29/22 17:58 BUN/Creatinine Ratio 13.4 (10-20) 05/29/22 17:58 Glucose 104 mg/dl (70-99(Fasting)) H 05/29/22 17:58 Calcium 9.5 mg/dl (8.5-10.1) 05/29/22 17:58 Magnesium 2.0 mg/dl (1.7-2.4) 05/29/22 17:58 Total Bilirubin 0.6 mg/dl (0.2-1.0) 05/29/22 17:58 AST 29 U/L (13-39) 05/29/22 17:58 ALT 17 U/L (7-52) 05/29/22 17:58 Alkaline Phosphatase 85 U/L (34-104) 05/29/22 17:58 Troponin I High Sens 5.8 pg/ml (0-14) 05/29/22 17:58 B-Natriuretic Peptide 117 pg/ml (0-100) H 05/29/22 20:28 Total Protein 7.4 gm/dl (6.0-8.3) 05/29/22 17:58 Albumin 4.3 gm/dl (3.4-5.0) 05/29/22 17:58 Globulin 3.1 gm/dl (2.5-4.0) 05/29/22 17:58 Albumin/Globulin Ratio 1.4 (0.9-2) 05/29/22 17:58 TSH 1.696 uIu/ml (0.300-4.500) 05/29/22 17:58 Urine Color Yellow 05/29/22 18:00 Urine Appearance Clear (Clear) 05/29/22 18:00 Urine pH 8.5 (4.5-7.5) H 05/29/22 18:00 Ur Specific Marshall 1.007 (1.000-1.030) 05/29/22 18:00 Urine Protein Negative (Negative) 05/29/22 18:00 Urine Glucose (UA) Negative (Negative) 05/29/22 18:00 Urine Ketones Negative (Negative) 05/29/22 18:00 Urine Blood Negative (Negative) 05/29/22 18:00 Urine Nitrite Negative (Negative) 05/29/22 18:00 Urine Bilirubin Negative (Negative) 05/29/22 18:00 Urine Urobilinogen Negative (Negative) 05/29/22 18:00 Ur Leukocyte Esterase Negative (Negative) 05/29/22 18:00 SARS-CoV-2 (PCR) NEGATIVE (Negative) 05/29/22 18:20 Impressions Chest X-Ray 05/29/22 18:16 XR chest 1V portable HISTORY: syncope COMPARISON: Chest 03/03/2022. FINDINGS: No pneumothorax. No pleural effusions. No focal lung consolidations to suggest a pneumonia. No evidence for pulmonary edema. There is mild emphysema. Postoperative changes again noted within the left shoulder. There is a loop recorder overlying the left heart border. This remains unchanged. IMPRESSION: No significant change compared to the prior study. No acute process. ACT 112: Negative or not required by law. Electronically signed by: Cameron Ruiz M.D. 05/29/2022 6:35 PM ECG Additional Comments: Study shows normal sinus rhythm at 64 bpm, normal axis, FL 170, QRS = 88, QTc = 46. No obvious acute ischemic changes. Overall poor study with artifact PG Care Time/CCT Total # of Minutes Spent Total Time Spent with Patient: Total time spent is greater than 50% in coordination of care (as documented) at patient's floor/unit and/or counseling patient: Coding Level of Care Code 78089 INT INP/OBS CARE 2/55MIN Diagnoses Syncope and collapse R55 Chronic diastolic CHF (congestive heart failure) I50.32 CAD (coronary artery disease) I25.10 Afib I48.91 Atrial fibrillation type: unspecified Dementia F03.90 (4) Afib Atrial fibrillation type: unspecified Qualified Code(s): I48.91 - Unspecified atrial fibrillation
[2022-05-30] MEDS ORDERED: ACETAMINOPHEN 325 MG TAB PO PRN (00:10)
[2022-05-30] MEDS ORDERED: BUMETANIDE 1 MG in SYRINGE 0 ML IV ONE (00:30)
[2022-05-30] MEDS ORDERED: PANTOprazole 40 MG TAB PO SCH (06:30)
--- NOTE | 2022-05-30 07:25 | CT Scan Report ---
CT head/brain wo con CLINICAL HISTORY: headache, syncope Technique: Contiguous axial CT images of the head were acquired from the base of the skull to the michael devin without intravenous contrast administration. Images were viewed in brain, subdural and [facility] . Automated dose lowering techniques and/or adjustment according to patient size were utilized for this exam. Comparison: Comparison is made to CT head 05/04/2021 Findings: Areas of decreased attenuation are present in the periventricular and subcortical white matter bilate rally consistent with small vessel ischemic disease. Generalized cerebral atrophy with commensurate e nlargement of the ventricles, sulci, and cisterns is also present. There is no acute intracranial hem orrhage or evidence of acute territorial infarction. No shift of the midline structures, mass effect, or extra-axial abnormalities are shown. Atherosclerotic calcifications are present in the intracran ial segments of the internal carotid arteries. Imaged portions of the paranasal sinuses and mastoid air cells are clear. The orbits appear normal. There are no acute fractures of the calvaria or scalp swelling. Impression: No acute intracranial hemorrhage, no evidence of acute territorial infarction or other acute intracra nial disease process. ACT 112: Negative or not required by law. Electronically signed by: Andrey Carrasco M.D. 05/30/2022 7:24 AM
[2022-05-30 07:27] LABS: Hematocrit (blood only) 31.2 % (37.0-47.0); Hemoglobin 10.6 g/dl (12.0-16.0); Mean Corpuscular Hemoglobin 31.1 pg (25.0-34.0); Mean Corpuscular Volume 91.5 fL (80.0-100.0); Mean Platelet Volume 11.1 fL (9.4-12.4); Platelet Count 226 K/uL (130-400); RDW Coefficient of Variation 13.9 % (11.5-14.5); RDW Standard Deviation 46.8 fL (36.4-46.3); Red Blood Count 3.41 M/uL (4.20-5.40)
[2022-05-30 07:42] LABS: BUN Creatinine Ratio 12.1 (10-20); Calcium 8.8 mg/dl (8.5-10.1); Creatinine Clr Calc Pharmacy 54.1 ml/min; Est GFR (African American) 70.5 ml/min; Est GFR (Non-African American) 60.9 ml/min; Potassium 3.2 mmol/L (3.5-5.1)
[2022-05-30 07:49] LABS: Troponin I High Sensitivity 5.6 pg/ml (0-14)
[2022-05-30] MEDS ORDERED: POTASSIUM CHLORIDE CRTAB 20 MEQ TABCR PO STA (07:51)
[2022-05-30] MEDS ORDERED: MEMANTINE HCL 10 MG TAB PO SCH (09:00)
[2022-05-30] MEDS ORDERED: busPIRone 5 MG TAB PO SCH (09:00)
[2022-05-30] MEDS ORDERED: RIVASTIGMINE TARTRATE 1.5 MG CAP PO SCH (09:00)
[2022-05-30] MEDS ORDERED: APIXABAN 5 MG TABLET PO SCH (09:00)
[2022-05-30] MEDS ORDERED: DOCUSATE SODIUM 100 MG CAP PO SCH (09:00)
[2022-05-30] MEDS: BUMETANIDE 1 MG TAB PO SCH ×2 (10:35→17:25)
--- NOTE | 2022-05-30 11:37 | Magnetic Resonance Report ---
MR brain seizure wo con CLINICAL HISTORY: ?seizure. Syncopal episode. COMPARISON STUDY: MRI of the brain October 29, [address] May 29, 2022. TECHNIQUE: Utilizing a 1.5 Bre magnet and dedicated coil, multiplanar, multi echo imaging of the br ain was performed without intravenous contrast. Thin cut coronal T2 imaging was performed. FINDINGS: There are no foci of restricted diffusion to suggest acute infarct. No acute intracranial h emorrhage, midline shift or mass effect is present. Ventricular system is stable. Basal cisterns are patent. There are no extra-axial collections. Flow-voids for the major intracranial vessels are prese nt. No intracranial masses identified on this unenhanced exam. The appearance of the brain is similar to MRI of October 29, 2021. White matter T2 hyperintense foci favor small vessel disease. Small amount of fluid within left mastoid air cells is unchanged. There is no evidence for sinusitis. IMPRESSION: No acute intracranial findings. ACT 112: Negative or not required by law. Electronically signed by: Kimani De M.D. 05/30/2022 11:36 AM
--- NOTE | 2022-05-30 12:33 | Electrocardiogram Report ---
Test Reason : Blood Pressure : / mmHG Vent. Rate : 064 BPM Atrial Rate : 064 BPM P-R Int : 170 ms QRS Dur : 088 ms QT Int : 472 ms P-R-T Axes : 083 054 085 degrees QTc Int : 486 ms Poor data quality, interpretation may be adversely affected Normal sinus rhythm Nonspecific ST and T wave abnormality Abnormal ECG When compared with ECG of 04-MAR-2022 06:32, ST now depressed in Anterior leads Confirmed by Sravan Apodaca ([id number]) on 05/30/2022 12:33:25 PM Referred By: REFERRED SELF Confirmed By:Sravan Apodaca
--- NOTE | 2022-05-30 13:02 | Electroencephalogram ---
EEG Procedure Note Date of Service May 30, 2022 Start / End Times Start Time: 9:59 AM End Time: 10:19 AM Referring Physician Sandra Cheng History Loss of consciousness, syncope evaluate for seizure activity Home Medication List Medication Instructions Recorded Confirmed Type docusate sodium 100 mg capsule 300 mg PO QAM 04/15/18 05/29/22 History calcium carbonate 600 mg calcium 1,200 mg PO QAM 06/08/19 05/29/22 History (1,500 mg) tablet (Calcium) cholecalciferol (vitamin D3) 25 1,000 unit PO QAM 06/08/19 05/29/22 History mcg (1,000 unit) capsule (Vitamin D3) nitroglycerin 0.4 mg sublingual 0.4 mg sublingual Q5M PRN chest 09/25/21 05/29/22 Rx tablet (Nitrostat) pain #20 tabs memantine 10 mg tablet (Namenda) 10 mg PO BID #180 tabs 11/11/21 05/29/22 Rx cyanocobalamin (vitamin B-12) 500 mcg PO QAM 12/08/21 05/29/22 History 1,000 mcg/15 mL oral liquid pantoprazole 40 mg tablet,delayed 40 mg PO QAM #90 tabs 01/05/22 05/29/22 Rx release potassium chloride 20 mEq 20 meq PO DAILY #30 tabs 01/18/22 05/29/22 Rx tablet,extended release rosuvastatin 40 mg tablet (Crestor) 40 mg PO HS #90 tabs 02/21/22 05/29/22 Rx amiodarone 200 mg tablet 100 mg PO HS #30 tabs 03/04/22 05/29/22 Rx buspirone 5 mg tablet 5 mg PO BID #90 tabs 03/07/22 05/29/22 Rx estradiol 0.075 mg/24 hr weekly See Rx Instructions .Route 04/11/22 05/29/22 Rx transdermal patch .COMPLEX #4 patches apixaban 5 mg tablet (Eliquis) 5 mg PO BID #180 tabs 04/29/22 05/29/22 Rx mirtazapine 15 mg tablet 15 mg PO DAILY #90 tabs 05/05/22 05/29/22 Rx rivastigmine tartrate 6 mg capsule 6 mg PO BID #180 caps 05/17/22 05/29/22 Rx bumetanide 2 mg tablet 2 mg PO BID #60 tabs 05/27/22 05/29/22 Rx Inpatient Medication List Acetaminophen (Acetaminophen 325 Mg Tab) 650 mg PO Q4H PRN PRN Reason: pain/fever Stop: 06/29/22 00:09 Last Admin: 05/30/22 11:00 Dose: 650 mg Documented By: RRR Apixaban (Apixaban 5 Mg Tablet) 5 mg PO BID [facility] Stop: 06/29/22 08:59 Last Admin: 05/30/22 10:35 Dose: 5 mg Documented By: RRR Bumetanide (Bumetanide 1 Mg Tab) 2 mg PO BID17 [facility] Stop: 06/29/22 08:59 Last Admin: 05/30/22 10:35 Dose: 2 mg Documented By: RRR Buspirone HCl (Buspirone 5 Mg Tab) 5 mg PO BID [facility] Stop: 06/29/22 08:59 Last Admin: 05/30/22 10:35 Dose: 5 mg Documented By: RRR Docusate Sodium (Docusate Sodium 100 Mg Cap) 300 mg PO QAM [facility] Stop: 06/29/22 08:59 Last Admin: 05/30/22 10:36 Dose: 300 mg Documented By: RRR Memantine (Memantine Hcl 10 Mg Tab) 10 mg PO BID [facility] Stop: 06/29/22 08:59 Last Admin: 05/30/22 10:36 Dose: 10 mg Documented By: RRR Pantoprazole Sodium (Pantoprazole 40 Mg Tab) 40 mg PO DAILYBB [facility] Stop: 06/29/22 06:29 Last Admin: 05/30/22 05:40 Dose: 40 mg Documented By: PERLA Rivastigmine Tartrate (Rivastigmine Tartrate 1.5 Mg Cap) 6 mg PO BID [facility] Stop: 06/29/22 08:59 Last Admin: 05/30/22 10:36 Dose: 6 mg Documented By: RRR Discontinued Medications Acetaminophen (Acetaminophen 500 Mg Tab) 1,000 mg PO NOW STA Stop: 05/29/22 19:37 Last Admin: 05/29/22 19:52 Dose: 1,000 mg Documented By: SKYLA Bumetanide 1 mg/ Syringe 4 mls @ 4 mls/min IV ONE ONE Stop: 05/30/22 00:31 Last Admin: 05/30/22 01:50 Dose: 4 mls/min Documented By: PERLA Potassium Chloride (Potassium Chloride Crtab 20 Meq Tabcr) 40 meq PO NOW STA Stop: 05/30/22 07:52 Last Admin: 05/30/22 10:59 Dose: 40 meq Documented By: RRR Description This is a 21 electrode EEG with a single channel dedicated to limited EKG. The electrodes were placed in accordance with the International 10-20 system. There is a posterior dominant rhythm of 8 to 9 Hz which is symmetrically distributed and attenuates with eye opening. There is a normal anterior to posterior organization. Photic stimulation is unremarkable. Hyperventilation is not performed. There is a symmetric frontal beta rhythm. There is admixed polymorphic theta activity seen throughout much of the study. There are some attenuation of the background rhythm in the latter part of the study. There are a few vertex waves. There are no epileptiform abnormalities. Interpretation Fairly normal-appearing awake/sleep EEG. There is a moderate degree of admixed generalized slowing, however, potentially suggestive of a mild nonspecific encephalopathy. There are no findings suggestive of seizure disorder. [facility] EEG Procedure Codes Indication for Procedure (1) Syncope and collapse: Neurology Neurology: 96384 EEG include record awake & sleepy
--- NOTE | 2022-05-30 17:21 | Discharge Summary ---
Date of Service May 30, 2022 Admission HPI Per Admitting Provider Ximena Maxwell is a 76-year-old female with history of CAD, chronic diastolic heart failure, hypertension, hyperlipidemia, dementia and paroxysmal atrial fibrillation on apixaban anticoagulation presenting with possible syncopal event. Patient was at a friend's house this afternoon with some family members. Around 16:30 the patient's daughter noticed that the patient was possibly passed out or sleeping while sitting on the couch. Later when they were driving home the patient developed some left-sided chest pain, dizziness, lightheadedness and feeling as though she was going to pass out. She also reports feeling hot and slightly disoriented "like the car was driving backwards". When they got home, patient was unable to get out of the car and unable to walk. Patient's daughter reports that she was very unsteady on her feet and she was "shaking uncontrollably" with her arms and her legs. They got her into the house and sat her in a chair. Shortly after she became unresponsive with sonorous respira tions. This lasted approximately 1 minute. When the patient woke up she was very confused. Presently she is complaining of a frontal headache specifically over her right eye as well as pain with eye movement. She has had progressive edema of her bilateral lower extremities for the last several days. She has had no additional chest pain. Her dizziness has resolved as well. Patient denies visual disturbance, slurred speech or confusion. No focal numbness/weakness/tingling. No incontinence. No palpitations, cough or shortness of breath. No abdominal pain vomiting or diarrhea. No fever/chills. Recent medication change: Rivastigmine increased to 6 mg p.o. twice daily (from 40 mg p.o. twice daily). Patient took her first dose of 6 mg this morning Bumex prescribed. Patient has not yet received Bumexpharmacy has been out. Daughter has been giving patient her typical dose of Lasix Patient has had a stressful week. Her recently moved back in to the home after living away for the last year. Patient also loss use of her car today presumably due to worsening cognitive function. Patient is upset about this because she has friends that she frequently visits and is afraid that she will not see them anymore. In the ER she is afebrile, hemodynamically stable, no acute distress ER course: Acetaminophen 1000 mg p.o. Principal Diagnosis Syncope Discharge Exam Constitutional WD/WN, vitals as above Eyes + anicteric sclerae, PERRL and EOM intact bilaterally Respiratory normal respiratory effort, lungs clear to auscultation Cardiovascular Rate/Rhythm: regular rate and regular rhythm Heart Sounds: no murmur Extremities: + edema (trace pitting edema legs bilat L>R) Gastrointestinal (Abdomen) normal bowel sounds, soft, nontender, no hepatosplenomegaly Neurologic PERRL, EOMI, accommodation nl, no face palsy, no dysarthria Psychiatric A+Ox3, euthymic affect Discharge Data Allergies Allergy/AdvReac Type Severity Reaction Status Date / Time gluten Allergy Intermediate Celiac Verified 05/29/22 21:18 disease latex Allergy Mild Rash Verified 05/29/22 21:18 amoxicillin AdvReac Intermediate Yeast Verified 05/29/22 21:18 infection cefdinir AdvReac Intermediate nausea Verified 05/29/22 21:18 Cephalosporins AdvReac Intermediate Yeast Verified 05/29/22 21:18 infection clavulanic acid AdvReac Intermediate Yeast Verified 05/29/22 21:18 infection prednisone AdvReac Intermediate Anxiety Verified 05/29/22 21:18 Ordered Studies 05/29/22 19:36 CT head/brain wo con Urgent 05/30/22 00:10 MRI Brain [MR brain seizure wo con] Routine Hospital Course (1) Syncope and collapse: 76-year-old female with history of hypertension, hyperlipidemia, coronary artery disease, paroxysmal atrial fibrillation and dementia presenting with concern for syncopal event. Patient is currently being worked up for syncope. She has a loop recorder in placelast data transfer 05/04/2022 revealed no arrhythmic events. Sinus bradycardia present. Episode described above was quite different than any other event of syncope the patient has experienced. She has no history of seizure. Concerning for such when daughter describes diffuse body shaking and confusion. Patient had a limited echocardiogram performed 12/08/2021 which revealed normal LV function. Mild aortic regurgitation. EF of 55 to 60% Patient recalls feeling nauseated and lightheaded prior to each of the two syncopal episodes. She did vomit before one of them. Denies associated CP,maybe some mild dyspnea, no palpitations with the episodes. She did increase her rivastigmine dose to 6mg from 3mg the day the syncopal events occurred. SHe is also having a 6/10 right periorbital headache and a has a h/o migraines. Brain MRI neg, EEG with encephalopathy but no sz activity, loop recorder interrogated and no arrhythmias noted as per my d/w Supervisor [employer] that did the interrogation. Troponin neg x 2. Orthostatics negative TSH, renal function normal, mild anemia but not significant enough to suspect acute blood loss -Possibly vasovagal syncope related to a migraine headache? Or orthostasis or syncope from Rivastigmine? Syncope is listed as a potential adverse effect. -improved now, feeling well, ambulating, ready for discharge -lower rivastigmine back to 3mg bid -can take tylenol prn migraine which is improving (2) Chronic diastolic CHF (congestive heart failure): Patient with chronic diastolic heart failure. She has been having progressive bilateral lower extremity edema for the last several days. She believes that her weight is up as welllast weighed on Monday at 155 pounds. She has been transitioned to Bumex however, has been unable to fill the prescription due to the pharmacy being out of this particular medication. She has been taking her daily Lasix as she awaits her Bumex prescription. She denies worsening shortness of breath. Adequate oxygenation on room air she received one dose of Bumex 1 mg IV Bumex 2 mg p.o. twice daily given after that and leg edema improved -follows with CHF clinic -replace K+ for hypokalemia with po KCl 40 meq x 1 today (3) CAD (coronary artery disease): Patient denies brief episode of chest pain this afternoon. No additional chest pain. Troponin is negative. EKG with no acute ischemic changes Continue Crestor 40 mg p.o. nightly (4) Afib: Patient presently in normal sinus rhythm. Anticoagulated on apixaban 5 mg p.o. twice daily Continue amiodarone 100 mg p.o. nightly Continue apixaban 5 mg p.o. twice daily (5) Dementia: Patient lives with her . Continue rivastigmine but lower back to 3 mg p.o. twice daily Continue memantine 10 mg p.o. twice daily Continue mirtazapine 15 mg p.o. daily Continue buspirone 5 mg p.o. twice daily Plan Dispo-dc to home Discussed all care with daughter Katya on phone Total Time Total Time Spent Total Time Spent (In Minutes): 35 min Discharge Plan Discharge Items Patient Disposition: Home - Self-Care Reason For Visit: SYNCOPE Discharge Diagnosis: Syncope Activity: Resume your previous activity Non-emergency contact: Primary Care Provider and Supervisor [employer] Call non-emergency contact if: you have any medication questions and your symptoms worsen Follow-up/Referrals: Sravan Figueroa MD [Primary Care Provider] - (Follow up within 1 week.) Diet: Low Sodium (2gm) Addtl Attending Provider Instructions: You were admitted after passing out. You had a brain MRI that was negative for stroke, an EEG which did not show any seizure activity, and had blood tests that showed you did not have a heart attack. Your loop recorder did not show any abnormal heart rhythms. This may have been related to a migraine headache or perhaps due to the recent increase in dose of your rivastigmine. The dose of that should be lowered back down to 3mg twice a day. You were given bumex and had improvement in your leg swelling. Pending Studies at Discharge: No Stand-Alone Forms: My [facility], Smoking Cessation Medications and DC Order Prescriptions: New rivastigmine tartrate 3 mg capsule 3 mg PO BID Qty: 60 0RF acetaminophen 325 mg Tablet 650 mg PO Q4H PRN (Reason: pain) Qty: 60 0RF Continued nitroglycerin [Nitrostat] 0.4 mg tablet, sublingual 0.4 mg sublingual Q5M PRN (Reason: chest pain) Qty: 20 1RF Rx Instructions: 0.4 mg tablet under tongue every 5 minutes, up to a series of 3 tabs, as needed for chest discomfort. pantoprazole 40 mg tablet,delayed release (DR/EC) 40 mg PO QAM Qty: 90 1RF Rx Instructions: 1/2 hour prior to breakfast PO daily; potassium chloride 20 mEq tablet extended release 20 meq PO DAILY Qty: 30 5RF rosuvastatin [Crestor] 40 mg tablet 40 mg PO HS Qty: 90 3RF buspirone 5 mg tablet 5 mg PO BID Qty: 90 3RF Rx Instructions: CONFIRMED W/ DAUGHTER SHE ONLY TAKES BID 03/07/22 estradiol 0.075 mg/24 hr patch weekly See Rx Instructions .ROUTE .COMPLEX Qty: 4 12RF Dose Instruction: APPLY 1 PATCH TOPICALLY WEEKLY. CHANGE PATCH ON SUNDAYS Rx Instructions: APPLY 1 PATCH TOPICALLY WEEKLY. CHANGE PATCH ON SUNDAYS Eliquis 5 mg tablet 5 mg PO BID Qty: 180 3RF bumetanide 2 mg tablet 2 mg PO BID Qty: 60 2RF Rx Instructions: 05/29/22 : NOT STARTED YET. UNAVAILABLE AT PHARMACY. memantine [Namenda] 10 mg tablet 10 mg PO BID Qty: 180 1RF calcium carbonate [Calcium 600] 600 mg calcium (1,500 mg) Tablet 1,200 mg PO QAM cholecalciferol (vitamin D3) [Vitamin D3] 25 mcg (1,000 unit) Capsule 1,000 unit PO QAM docusate sodium 100 mg Capsule 300 mg PO QAM amiodarone 200 mg Tablet 100 mg PO HS Qty: 30 0RF cyanocobalamin (vitamin B-12) 1,000 mcg/15 mL Liquid 500 mcg PO QAM Changed mirtazapine 15 mg tablet 15 mg PO HS Qty: 90 3RF Discontinued rivastigmine tartrate 6 mg capsule 6 mg PO BID Qty: 180 3RF Discharge Orders: Discharge Order (Routine); Ordered 05/30/22 Ordered By: Hortensia Parrish Admission Data Admit Date/Time: 05/29/22 23:18 Attending Provider: Hortensia Parrish Admit Provider: Sandra Cheng Primary Care Provider: Sravan Figueroa Coding Level of Care Code HOSP INP/OBS DISCH >30 MIN Diagnoses Syncope and collapse R55 Chronic diastolic CHF (congestive heart failure) I50.32 CAD (coronary artery disease) I25.10 Afib I48.91 Atrial fibrillation type: unspecified Dementia F03.90
[2022-05-30] MEDS ORDERED: ROSUVASTATIN CALCIUM 20 MG TAB PO SCH (21:00)
[2022-05-30] MEDS ORDERED: AMIODARONE 200 MG TAB PO SCH (21:00)
[2022-05-30] MEDS ORDERED: MIRTAZAPINE TAB 15 MG TAB PO SCH (21:00)
== END 2022-05-30 18:40 | disposition home or self-care (01) ==
LOC: 2N 17:54 → ED 17:54 → SUATTDRO 23:18 → 2N 23:47

== ENCOUNTER 2022-06-09 12:11 | Observation (INO) ==
[2022-06-09] MEDS ORDERED: LORazepam 0.5 MG TAB PO STA (12:54)
[2022-06-09] MEDS ORDERED: ACETAMINOPHEN 500 MG TAB PO STA (12:54)
--- NOTE | 2022-06-09 12:54 | Electrocardiogram Report ---
Test Reason : Blood Pressure : / mmHG Vent. Rate : 069 BPM Atrial Rate : 069 BPM P-R Int : 172 ms QRS Dur : 088 ms QT Int : 446 ms P-R-T Axes : 074 062 020 degrees QTc Int : 477 ms Normal sinus rhythm Normal ECG When compared with ECG of 29-MAY-2022 18:01, No significant change Confirmed by Jayy Jaimes ([id number]) on 06/09/2022 12:54:32 PM Referred By: Confirmed By:Jayy Jaimes
[2022-06-09 13:01] LABS: Basophils # (auto) 0.05 K/uL (0-0.2); Basophils % (auto) 0.6 %; Eosinophils # (auto) 0.05 K/uL (0-0.50); Eosinophils % (auto) 0.6 %; Hematocrit (blood only) 35.8 % (37.0-47.0); Hemoglobin 12.2 g/dl (12.0-16.0); Immature Granulocytes # (auto) 0.01 K/uL (0.01-0.20); Immature Granulocytes % (auto) 0.1 %; Lymphocytes # (auto) 2.99 K/uL (1.2-3.4); Lymphocytes % (auto) 37.8 %; Mean Corpuscular Hemoglobin 31.7 pg (25.0-34.0); Mean Corpuscular Hgb Conc 34.1 g/dL (32.0-36.0); Mean Platelet Volume 10.8 fL (9.4-12.4); Monocytes # (auto) 0.72 K/uL (0.11-0.59); Monocytes % (auto) 9.1 %; Neutrophils # (auto) 4.09 K/uL (1.40-6.50); Neutrophils % (auto) 51.8 %; Platelet Count 262 K/uL (130-400); RDW Coefficient of Variation 13.4 % (11.5-14.5); RDW Standard Deviation 45.6 fL (36.4-46.3); Red Blood Count 3.85 M/uL (4.20-5.40); White Blood Count 7.91 K/ul (4.8-10.8)
[2022-06-09 13:12] LABS: Alanine Aminotransferase 15 U/L (7-52); Albumin Globulin Ratio 1.3 (0.9-2); Albumin Level 4.5 gm/dl (3.4-5.0); Alkaline Phosphatase 92 U/L (34-104); Anion Gap 5 (3-11); Aspartate Aminotransferase 25 U/L (13-39); Bilirubin,Total 0.5 mg/dl (0.2-1.0); Blood Urea Nitrogen 15 mg/dl (6-23); Calcium 9.5 mg/dl (8.5-10.1); Carbon Dioxide 37 mmol/L (21-32); Chloride 98 mmol/L (98-107); Creatine Kinase 71 U/L (26-192); Globulin 3.5 gm/dl (2.5-4.0); Glucose 92 mg/dl (70-99(Fasting)); Magnesium 2.1 mg/dl (1.7-2.4); Phosphorus 3.6 mg/dl (2.5-4.9); Potassium 3.4 mmol/L (3.5-5.1); Sodium 140 mmol/L (136-145)
[2022-06-09] MEDS ORDERED: OPTIRAY 320 500ml IV ONE (14:02)
--- NOTE | 2022-06-09 14:25 | CT Scan Report ---
CT ANGIOGRAM OF THE BRAIN COMBO; CT ANGIOGRAM OF THE NECK CLINICAL HISTORY: Seizure. Aneurysm. COMPARISON STUDY: CT of the brain dated 05/29/2022. MRI of the brain dated 05/30/2022. TECHNIQUE: Unenhanced axial CT scan of the brain is performed. Subsequently, following the IV adminis tration of 120 of [address]ir[address] 320, CT angiogram of the head and neck was performed from the aortic arch t o the vertex. Images are reviewed in the axial, sagittal, and coronal planes. 3-D MIPS images are cre ated and assessed. IV contrast was administered without complication. All measurements were calculate d based on NASCET criteria. A dose lowering technique was utilized adhering to the principles of ALA RA. CT DOSE: 913.71 mGy.cm FINDINGS: Brain parenchyma: There is age-related involutional change noting mild subcortical and periventricula r microangiopathic disease. There is no hemorrhage, mass effect, or evidence of acute territorial isc hemia by CT criteria. There is no evidence of enhancing mass lesion on the angiogram phase images. Th e ventricles, sulci, and cisterns are prominent secondary to involutional change. Rangel-white matter d ifferentiation is preserved. No extra-axial fluid collection is seen. Thoracic aorta: Visualized portions of the thoracic aorta are normal in caliber. The aortic arch demo nstrates standard 3-vessel anatomy. Right carotid arterial system: The right common carotid artery is widely patent, as are the right int ernal and external carotid arteries. Calcified plaque is noted in the carotid bulb. Left carotid arterial system: The left common carotid artery is widely patent, as are the left copywriting intern al and external carotid arteries. Calcified plaque is noted in the carotid bulb. Vertebral arteries: The vertebral arteries are widely patent bilaterally and codominant. Subclavian arteries: Widely patent bilaterally. Intracranial vasculature: The internal carotid arteries are patent at the skull base, as are the ante rior and middle cerebral arteries bilaterally. The vertebrobasilar system and posterior cerebral dangelo shahram are widely patent. The vertebral arteries are codominant. There is a large left posterior commun icating artery. There is no aneurysm, high-grade stenosis, or focal vessel cut off seen throughout th e intracranial circulation. Jugular veins: Patent bilaterally. Dural sinuses: Patent. Lung apices: Partially visualized upper lobe lung parenchyma appears clear. Soft tissues: The visualized pharyngeal soft tissues are normal in appearance noting angiographic pha se technique. The oropharyngeal airway appears widely patent. The salivary and thyroid glands are nor mal in appearance. No cervical lymphadenopathy is seen. Skeletal structures: The skeletal structures are osteopenic. The calvarium appears intact. The cervic al spine is maintains noting multilevel spondylosis. No lytic or blastic lesion is seen. Orbits: The bony orbits are intact. Orbital contents are normal as visualized nothing bilateral ocula r lens implants. Sinuses and mastoids: The paranasal sinuses are clear. There are small bilateral mastoid effusions, l eft larger than right. IMPRESSION: 1. There is no hemorrhage, mass effect, or evidence of acute territorial ischemia by CT criteria. 2. Unremarkable CT angiogram of the brain. 3. Unremarkable CT angiogram of the neck. ACT 112: Negative or not required by law. Electronically signed by: Michael Smith M.D. 06/09/2022 2:23 PM
[2022-06-09 14:46] LABS: Appearance Urine Clear (Clear); Bilirubin Urine Negative (Negative); Blood Urine Negative (Negative); Color Urine Yellow; Glucose Urine UA Negative (Negative); Ketones Urine Negative (Negative); Leukocyte Esterase Urine Negative (Negative); Nitrite Urine Negative (Negative); Protein Urine Negative (Negative); Specific Gravity Urine 1.006 (1.000-1.030); Urobilinogen Urine Negative (Negative); pH Urine 8.5 (4.5-7.5)
--- NOTE | 2022-06-09 14:46 | Emergency Department Note ---
Impression & Plan Seizure-like activity, Headache ED Provider Note INFORMANT: Patient and daughter ED PROVIDER(S): Jefferson Bartlett MD CHIEF COMPLAINT: Seizure-like activity PLAN: Disposition: Admitted Condition: Good Outpatient prescription management: none Referral: None MEDICAL DECISION MAKING: Patient presented from the primary office after having seizure-like activity. She was hemodynamically stable on initial evaluation. Patient was placed in seizure precautions. By history the patient did not fully lose consciousness during these episodes. Daughter is present and does help with details. Patient was given an oral dose of Ativan and Tylenol. She underwent blood work and CT imaging. CT imaging did not reveal any evidence of aneurysm, dissection or other intracranial pathology. Patient's CBC and chemistry panel were unremarkable. ECG showed a normal sinus rhythm. Patient was still having a component of headache and some ocular tearing on the right side. There was some thought of a migraine component on the last admission. I did discuss the case with Dr. Chase. We felt removal of the rivastigmine would be most appropriate as the patient's symptoms have occurred after the initiation of this medication and titration upward. He also felt treating for migraine would be reasonable and observing the patient for successful treatment. The patient was given a dose of IV Reglan, IV normal saline, and IV magnesium. Patient and daughter were informed. [facility] Case was discussed and diagnostics were reviewed with Dr. Coffey. Patient was evaluated in the ER for further management. After review of the information above and other included data, I feel the patient requires admission to the hospital. Triage Nursing notes reviewed and agree them. Vital Signs: reviewed and remarkable for no significant abnormalities Prior /Outside records reviewed: PCP visit reviewed regarding the seizure-like episode Differential diagnosis: Epilepsy, infection, hypoglycemia, electrolyte abnormalities, dysrhythmia, intracerebral event, trauma, toxicologic, neurologic, syncope, as well as other pathologies. Diagnostics, as interpreted by me: EC Lead ECG performed and revealed Normal sinus rhythm at 69, normal [place], QRS normal. No elevation or depression. No PACs or PVCs Cardiac Monitoring: Cardiac monitoring ordered by me: The patient was placed on continuous cardiac monitoring and observed. It revealed a normal sinus rhythm at 60 beats per minute without ectopy or evidence of dysrhythmia. Medical decision rules: none Imaging studies: CT angiography of the head and neck is negative for acute intracranial pathology. No aneurysm or dissection. I refer you to the EMR for further details. HPI: The patient is a 77 year old female who presents to the Emergency Room with complaints of seizure-like activity. This started in the primary office just prior to arrival and is described as whole body shaking however the patient did not fully lose consciousness. Episodes lasted about 10 minutes. Patient states that she had a similar shorter episode that was at home the day before yesterday. The patient also notes the following associated symptoms, feeling generally weak, headache and right eye tearing. The patient has been given no medication prehospital relieving factors. Current pain is rated as 6/10. Pt denies LOC, fevers, chills, diaphoresis, visual changes, neck pain, chest pain, breathing difficulties, nausea, vomiting, abdominal pain, back pain, melena, hematochezia, urinary symptoms, numbness, lymphadenopathy, rash, or other complaints. PAST MEDICAL HISTORY: See Below, atrial tachycardia, cognitive impairment, CHF PAST SURGICAL HISTORY: See Below, SOCIAL HISTORY: See Below, lives alone HOME MEDICATIONS: See Below ALLERGIES: See Below VITALS: See Below PHYSICAL EXAMINATION: GENERAL: Awake, alert, anxious-appearing, in no distress HENT: Normocephalic, atraumatic. Oropharynx unremarkable. EYES: Normal conjunctiva. Sclera non-icteric. PERRLA. EOMI. Mild tearing noted in the right eye. NECK: Inspection normal. Non-tender. Supple. No nuchal rigidity. FROM. No masses. RESPIRATORY: Clear to auscultation. No wheezes. No rales. Normal respiratory effort. CARDIAC: Normal rate. Normal rhythm. No murmurs. No rubs. Extremities warm and well perfused. Pulses equal. No JVD. GI: Soft, non-distended. No tenderness to palpation. No rebound or guarding. No masses. RECTAL: Deferred. MUSCULOSKELETAL: Atraumatic. Chest examination reveals no tenderness. The back is symmetrical on inspection without obvious abnormality. There is no CVA tenderness to palpation. No joint edema. LOWER EXTREMITIES: Calves are equal size bilaterally and non-tender. 1+ edema. No discoloration. NEURO: Normal sensorium. No sensory or motor deficits noted. Speech normal. No drift. SKIN: No rash or jaundice noted. Past Med/Surg History Medical History Acute blood loss anemia (ABLA) Acute hyponatremia Anemia RECEIVED 2 UNITS [facility] 04/2021 RECENT ADMISSION Atypical chest pain CAD (coronary artery disease) Medically managed by cardiology NSTEMI 07/27/20- cath demonstrated small branch vessel disease involving small OM to, not amenable to intervention. CD (celiac disease) "Does not" follow gluten-free diet Chest pressure Chronic diastolic congestive heart failure Constipation Degenerative disc disease Diastolic CHF Diverticulitis 2013 Dyslipidemia GI bleed reason for Endoscopy History of paroxysmal supraventricular tachycardia with atrial tachycardia Hypercholesterolemia Hypertension Low back pain with sciatica Nausea & vomiting Non-ST elevation ID (NSTEMI) 07/27/20 Obstructive sleep apnea Ocular migraine Open wound of buttock Paroxysmal atrial fibrillation Sleep apnea CPAP Vertigo Surgical History History of arthroscopy of right shoulder RCR History of cardiac cath 2016, 07/28/20 ([place]) > no stents History of cardioversion x2, most recent 04/2019 History of carpal tunnel release R/L History of cataract surgery R/L History of cholecystectomy History of colonoscopy History of esophagogastroduodenoscopy (EGD) History of foot surgery R/L feet "to straighten toes" History of fracture of left shoulder Plate + screws History of hysterectomy JOANNA + BSO History of incision and drainage Right foot History of tonsillectomy History of total knee replacement Left x2, right x1 S/P transesophageal echocardiogram (JOHANA) Status post placement of implantable loop recorder Implanted 12/2019 - Follows Dr. Yoo > to see Dr. Powers this afternoon for check Family History Mother Family hx of colon cancer Colorectal cancer Brother Prostate cancer Family history of diabetes mellitus Father Dissecting aortic aneurysm Myocardial infarction Grandmother (Maternal) Stroke Other No family history of adverse response to anesthesia Denies family history of Ovarian cancer Breast cancer Social History Smoking Status: Never smoker Tobacco Type: Cigarettes Age Started Using Tobacco: 19; Age Quit Using Tobacco: 27; packs per day: 0.25; Second Hand Exposure: No; Hx Alcohol Use: Yes Alcohol type: wine Hx Substance Use: No Preferred Language: Lithuanian Communication Ability: Effective Visual Impairment: No Limitations Hearing Ability: Normal 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: No Beliefs That Will Affect Care: None marital status: Current Living Situation: Alone Current Living Situation Comment: just left her 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; 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[employer]; 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 Feels Safe at Home: Yes Childhood Exposure to Second-Hand Smoke: No Dental Care, Regularly: Yes Seatbelt Use: always Sunscreen Use: Yes Assistive Devices: CPAP Allergies Allergies Allergy/AdvReac Type Severity Reaction Status Date / Time gluten Allergy Intermediate Celiac Verified 06/09/22 16:33 disease latex Allergy Mild Rash Verified 06/09/22 16:33 amoxicillin AdvReac Intermediate Yeast Verified 06/09/22 16:33 infection cefdinir AdvReac Intermediate nausea Verified 06/09/22 16:33 Cephalosporins AdvReac Intermediate Yeast Verified 06/09/22 16:33 infection clavulanic acid AdvReac Intermediate Yeast Verified 06/09/22 16:33 infection prednisone AdvReac Intermediate Anxiety Verified 06/09/22 16:33 Home Meds Home Medications Medication Instructions Recorded Confirmed docusate sodium 100 mg capsule 300 mg PO QAM 04/15/18 06/09/22 calcium carbonate 600 mg calcium 1,200 mg PO QAM 06/08/19 06/09/22 (1,500 mg) tablet (Calcium) cholecalciferol (vitamin D3) 25 1,000 unit PO QAM 06/08/19 06/09/22 mcg (1,000 unit) capsule (Vitamin D3) cyanocobalamin (vitamin B-12) 500 mcg PO QAM 12/08/21 06/09/22 1,000 mcg/15 mL oral liquid Previous Rx's Medication Instructions Recorded nitroglycerin 0.4 mg sublingual 0.4 mg sublingual Q5M PRN chest 09/25/21 tablet (Nitrostat) pain #20 tabs memantine 10 mg tablet (Namenda) 10 mg PO BID #180 tabs 11/11/21 pantoprazole 40 mg tablet,delayed 40 mg PO QAM #90 tabs 01/05/22 release potassium chloride 20 mEq 20 meq PO DAILY #30 tabs 01/18/22 tablet,extended release rosuvastatin 40 mg tablet (Crestor) 40 mg PO HS #90 tabs 02/21/22 amiodarone 200 mg tablet 100 mg PO HS #30 tabs 03/04/22 buspirone 5 mg tablet 5 mg PO BID #90 tabs 03/07/22 estradiol 0.075 mg/24 hr weekly See Rx Instructions .Route 04/11/22 transdermal patch .COMPLEX #4 patches apixaban 5 mg tablet (Eliquis) 5 mg PO BID #180 tabs 04/29/22 bumetanide 2 mg tablet 2 mg PO BID #60 tabs 05/27/22 acetaminophen 325 mg tablet 650 mg PO Q4H PRN pain #60 tabs 05/30/22 mirtazapine 15 mg tablet 15 mg PO HS #90 tabs 05/30/22 rivastigmine tartrate 3 mg capsule 3 mg PO BID #180 caps 06/02/22 Results & Data (ED) Vital Signs Vital Signs - 24 hr 06/09/22 12:23 06/09/22 12:23 06/09/22 12:38 Temperature 36.8 C Temperature Source Oral Pulse Rate 71 65 71 Pulse Rate from SpO2 Sensor Pulse Rhythm Regular Pulse Strength Normal Respiratory Rate 18 16 Respiratory Effort / Characteristics Non-Labored Spontaneous Respiratory Depth Normal Respiratory Pattern Regular Blood Pressure 148/47 H Blood Pressure Mean 80 Pulse Oximetry 100 100 Oxygen Delivery Method Room Air Sepsis Recent Fever Within 48 Hours No Sepsis New/Unexplained Change in Mental Status No Sepsis Action Taken by Nursing No Action Required 06/09/22 12:36 06/09/22 12:40 06/09/22 12:50 Temperature Temperature Source Pulse Rate 67 148 H 65 Pulse Rate from SpO2 Sensor 64 84 64 Pulse Rhythm Pulse Strength Respiratory Rate 21 16 16 Respiratory Effort / Characteristics Respiratory Depth Respiratory Pattern Blood Pressure Blood Pressure Mean Pulse Oximetry 100 90 97 Oxygen Delivery Method Sepsis Recent Fever Within 48 Hours Sepsis New/Unexplained Change in Mental Status Sepsis Action Taken by Nursing 06/09/22 13:00 06/09/22 13:10 06/09/22 13:20 Temperature Temperature Source Pulse Rate 61 64 62 Pulse Rate from SpO2 Sensor 60 65 62 Pulse Rhythm Pulse Strength Respiratory Rate 16 14 17 Respiratory Effort / Characteristics Respiratory Depth Respiratory Pattern Blood Pressure Blood Pressure Mean Pulse Oximetry 98 97 98 Oxygen Delivery Method Sepsis Recent Fever Within 48 Hours Sepsis New/Unexplained Change in Mental Status Sepsis Action Taken by Nursing 06/09/22 13:30 06/09/22 13:40 06/09/22 14:16 Temperature Temperature Source Pulse Rate 61 71 Pulse Rate from SpO2 Sensor 61 64 Pulse Rhythm Pulse Strength Respiratory Rate 11 L 20 14 Respiratory Effort / Characteristics Respiratory Depth Respiratory Pattern Blood Pressure Blood Pressure Mean Pulse Oximetry 95 97 Oxygen Delivery Method Sepsis Recent Fever Within 48 Hours Sepsis New/Unexplained Change in Mental Status Sepsis Action Taken by Nursing 06/09/22 14:16 06/09/22 14:20 06/09/22 14:30 Temperature Temperature Source Pulse Rate 60 61 Pulse Rate from SpO2 Sensor 60 61 Pulse Rhythm Pulse Strength Respiratory Rate 13 18 Respiratory Effort / Characteristics Respiratory Depth Respiratory Pattern Blood Pressure 144/57 H Blood Pressure Mean 86 Pulse Oximetry 98 95 Oxygen Delivery Method Sepsis Recent Fever Within 48 Hours Sepsis New/Unexplained Change in Mental Status Sepsis Action Taken by Nursing 06/09/22 14:31 06/09/22 14:31 06/09/22 14:40 Temperature Temperature Source Pulse Rate 127 H 61 Pulse Rate from SpO2 Sensor 64 59 L Pulse Rhythm Pulse Strength Respiratory Rate 14 19 Respiratory Effort / Characteristics Respiratory Depth Respiratory Pattern Blood Pressure 118/54 L Blood Pressure Mean 75 Pulse Oximetry 95 100 Oxygen Delivery Method Sepsis Recent Fever Within 48 Hours Sepsis New/Unexplained Change in Mental Status Sepsis Action Taken by Nursing 06/09/22 14:50 06/09/22 15:00 06/09/22 15:00 Temperature Temperature Source Pulse Rate 59 L 60 Pulse Rate from SpO2 Sensor 60 61 Pulse Rhythm Pulse Strength Respiratory Rate 15 15 Respiratory Effort / Characteristics Respiratory Depth Respiratory Pattern Blood Pressure 134/52 L Blood Pressure Mean 79 Pulse Oximetry 100 97 Oxygen Delivery Method Sepsis Recent Fever Within 48 Hours Sepsis New/Unexplained Change in Mental Status Sepsis Action Taken by Nursing 06/09/22 15:10 06/09/22 15:20 06/09/22 15:30 Temperature Temperature Source Pulse Rate 60 60 Pulse Rate from SpO2 Sensor 59 L 60 Pulse Rhythm Pulse Strength Respiratory Rate 18 20 Respiratory Effort / Characteristics Respiratory Depth Respiratory Pattern Blood Pressure 121/49 L Blood Pressure Mean 73 Pulse Oximetry 98 99 Oxygen Delivery Method Sepsis Recent Fever Within 48 Hours Sepsis New/Unexplained Change in Mental Status Sepsis Action Taken by Nursing 06/09/22 15:30 06/09/22 16:26 06/09/22 16:42 Temperature Temperature Source Pulse Rate 57 L 57 L Pulse Rate from SpO2 Sensor 58 L Pulse Rhythm Pulse Strength Respiratory Rate 16 Respiratory Effort / Characteristics Respiratory Depth Respiratory Pattern Blood Pressure Blood Pressure Mean Pulse Oximetry 97 Oxygen Delivery Method Room Air Sepsis Recent Fever Within 48 Hours Sepsis New/Unexplained Change in Mental Status Sepsis Action Taken by Nursing Laboratory Data 06/09/22 12:34 06/09/22 12:34 Lab Results 06/09/22 06/09/22 06/09/22 Range/Units 12:34 12:34 12:34 WBC 7.91 (4.8-10.8) K/ul RBC 3.85 L (4.20-5.40) M/uL Hgb 12.2 (12.0-16.0) g/dl Hct 35.8 L (37.0-47.0) % MCV 93.0 (80.0-100.0) fL MCH 31.7 (25.0-34.0) pg MCHC 34.1 (32.0-36.0) g/dL RDW Std Deviation 45.6 (36.4-46.3) fL RDW Coeff of [place] 13.4 (11.5-14.5) % Plt Count 262 (130-400) K/uL MPV 10.8 (9.4-12.4) fL Immature Gran % (Auto) 0.1 % Neut % (Auto) 51.8 % Lymph % (Auto) 37.8 % [place] % (Auto) 9.1 % Eos % (Auto) 0.6 % Baso % (Auto) 0.6 % Neut # (Auto) 4.09 (1.40-6.50) K/uL Lymph # (Auto) 2.99 (1.2-3.4) K/uL [place] # (Auto) 0.72 H (0.11-0.59) K/uL Eos # (Auto) 0.05 (0-0.50) K/uL Baso # (Auto) 0.05 (0-0.2) K/uL Immature Gran # (Auto) 0.01 (0.01-0.20) K/uL Sodium 140 (136-145) mmol/L Potassium 3.4 L (3.5-5.1) mmol/L Chloride 98 (98-107) mmol/L Carbon Dioxide 37 H (21-32) mmol/L Anion Gap 5 (3-11) BUN 15 (6-23) mg/dl Creatinine 1.07 (0.6-1.2) mg/dl Est Cr Clr Drug Dosing Not Reportable Est GFR ( Amer) 58.0 ml/min Est GFR (Non-Af Amer) 50.0 ml/min BUN/Creatinine Ratio 14.0 (10-20) Glucose 92 (70-99(Fasting)) mg/dl Calcium 9.5 (8.5-10.1) mg/dl Phosphorus 3.6 (2.5-4.9) mg/dl Magnesium 2.1 (1.7-2.4) mg/dl Total Bilirubin 0.5 (0.2-1.0) mg/dl AST 25 (13-39) U/L ALT 15 (7-52) U/L Alkaline Phosphatase 92 (34-104) U/L Total Creatine Kinase 71 (26-192) U/L Troponin I High Sens 6.1 (0-14) pg/ml Total Protein 8.0 (6.0-8.3) gm/dl Albumin 4.5 (3.4-5.0) gm/dl Globulin 3.5 (2.5-4.0) gm/dl Albumin/Globulin Ratio 1.3 (0.9-2) Urine Color Urine Appearance (Clear) Urine pH (4.5-7.5) Ur Specific [place] (1.000-1.030) Urine Protein (Negative) Urine Glucose (UA) (Negative) Urine Ketones (Negative) Urine Blood (Negative) Urine Nitrite (Negative) Urine Bilirubin (Negative) Urine Urobilinogen (Negative) Ur Leukocyte Esterase (Negative) 06/09/22 Range/Units 13:50 WBC (4.8-10.8) K/ul RBC (4.20-5.40) M/uL Hgb (12.0-16.0) g/dl Hct (37.0-47.0) % MCV (80.0-100.0) fL MCH (25.0-34.0) pg MCHC (32.0-36.0) g/dL RDW Std Deviation (36.4-46.3) fL RDW Coeff of [place] (11.5-14.5) % Plt Count (130-400) K/uL MPV (9.4-12.4) fL Immature Gran % (Auto) % Neut % (Auto) % Lymph % (Auto) % [place] % (Auto) % Eos % (Auto) % Baso % (Auto) % Neut # (Auto) (1.40-6.50) K/uL Lymph # (Auto) (1.2-3.4) K/uL [place] # (Auto) (0.11-0.59) K/uL Eos # (Auto) (0-0.50) K/uL Baso # (Auto) (0-0.2) K/uL Immature Gran # (Auto) (0.01-0.20) K/uL Sodium (136-145) mmol/L Potassium (3.5-5.1) mmol/L Chloride (98-107) mmol/L Carbon Dioxide (21-32) mmol/L Anion Gap (3-11) BUN (6-23) mg/dl Creatinine (0.6-1.2) mg/dl Est Cr Clr Drug Dosing Est GFR ( Amer) ml/min Est GFR (Non-Af Amer) ml/min BUN/Creatinine Ratio (10-20) Glucose (70-99(Fasting)) mg/dl Calcium (8.5-10.1) mg/dl Phosphorus (2.5-4.9) mg/dl Magnesium (1.7-2.4) mg/dl Total Bilirubin (0.2-1.0) mg/dl AST (13-39) U/L ALT (7-52) U/L Alkaline Phosphatase (34-104) U/L Total Creatine Kinase (26-192) U/L Troponin I High Sens (0-14) pg/ml Total Protein (6.0-8.3) gm/dl Albumin (3.4-5.0) gm/dl Globulin (2.5-4.0) gm/dl Albumin/Globulin Ratio (0.9-2) Urine Color Yellow Urine Appearance Clear (Clear) Urine pH 8.5 H (4.5-7.5) Ur Specific [place] 1.006 (1.000-1.030) Urine Protein Negative (Negative) Urine Glucose (UA) Negative (Negative) Urine Ketones Negative (Negative) Urine Blood Negative (Negative) Urine Nitrite Negative (Negative) Urine Bilirubin Negative (Negative) Urine Urobilinogen Negative (Negative) Ur Leukocyte Esterase Negative (Negative) Administered Medications Magnesium Sulfate/Dextrose (Magnesium Sulfate / D5w) 1 gm in 100 mls @ 50 mls/hr IV ONE ONE Stop: 06/09/22 17:41 Last Admin: 06/09/22 16:11 Dose: 50 mls/hr Documented By: TREASURE Discontinued Medications Acetaminophen (Acetaminophen 500 Mg Tab) 1,000 mg PO NOW STA Stop: 06/09/22 12:55 Last Admin: 06/09/22 13:07 Dose: 1,000 mg Documented By: TREASURE Sodium Chloride (Nss 1000ml) 500 mls @ 999 mls/hr IV .Q31M ONE Stop: 06/09/22 16:13 Last Admin: 06/09/22 16:10 Dose: 999 mls/hr Documented By: TREASURE Ioversol (Optiray 320 500ml) 120 ml IV ONCE ONE Stop: 06/09/22 14:03 Last Admin: 06/09/22 14:02 Dose: 120 ml Documented By: KANDY Lorazepam (Lorazepam 0.5 Mg Tab) 0.5 mg PO NOW STA Stop: 06/09/22 12:55 Last Admin: 06/09/22 13:07 Dose: 0.5 mg Documented By: TREASURE Metoclopramide HCl (Metoclopramide Hcl Inj 5 Mg/Ml 2 Ml Vial) 5 mg IV ONE ONE Stop: 06/09/22 15:43 Last Admin: 06/09/22 16:10 Dose: 5 mg Documented By: TREASURE Imaging Data Radiologist's Impression: Head CTA 06/09/22 12:56 CT ANGIOGRAM OF THE BRAIN COMBO; CT ANGIOGRAM OF THE NECK CLINICAL HISTORY: Seizure. Aneurysm. COMPARISON STUDY: CT of the brain dated 05/29/2022. MRI of the brain dated 05/30/2022. TECHNIQUE: Unenhanced axial CT scan of the brain is performed. Subsequently, following the IV administration of 120 of Optiray 320, CT angiogram of the head and neck was performed from the aortic arch to the vertex. Images are reviewed in the axial, sagittal, and coronal planes. 3-D MIPS images are created and a ssessed. IV contrast was administered without complication. All measurements were calculated based on NASCET criteria. A dose lowering technique was utilized adhering to the principles of ALARA. CT DOSE: 913.71 mGy.cm FINDINGS: Brain parenchyma: There is age-related involutional change noting mild subcortical and periventricular microangiopathic disease. There is no hemorrhage, mass effect, or evidence of acute territorial ischemia by CT criteria. There is no evidence of enhancing mass lesion on the angiogram phase images. The ventricles, sulci, and cisterns are prominent secondary to involutional change. Rangel-white matter differentiation is preserved. No extra- axial fluid collection is seen. Thoracic aorta: Visualized portions of the thoracic aorta are normal in caliber. The aortic arch demonstrates standard 3-vessel anatomy. Right carotid arterial system: The right common carotid artery is widely patent, as are the right internal and external carotid arteries. Calcified plaque is noted in the carotid bulb. Left carotid arterial system: The left common carotid artery is widely patent, as are the left internal and external carotid arteries. Calcified plaque is noted in the carotid bulb. Vertebral arteries: The vertebral arteries are widely patent bilaterally and codominant. Subclavian arteries: Widely patent bilaterally. Intracranial vasculature: The internal carotid arteries are patent at the skull base, as are the anterior and middle cerebral arteries bilaterally. The vertebrobasilar system and posterior cerebral arteries are widely patent. The vertebral arteries are codominant. There is a large left posterior communicating artery. There is no aneurysm, high-grade stenosis, or focal vessel cut off seen throughout the intracranial circulation. Jugular veins: Patent bilaterally. Dural sinuses: Patent. Lung apices: Partially visualized upper lobe lung parenchyma appears clear. Soft tissues: The visualized pharyngeal soft tissues are normal in appearance noting angiographic phase technique. The oropharyngeal airway appears widely patent. The salivary and thyroid glands are normal in appearance. No cervical lymphadenopathy is seen. Skeletal structures: The skeletal structures are osteopenic. The calvarium appears intact. The cervical spine is maintains noting multilevel spondylosis. No lytic or blastic lesion is seen. Orbits: The bony orbits are intact. Orbital contents are normal as visualized nothing bilateral ocular lens implants. Sinuses and mastoids: The paranasal sinuses are clear. There are small bilateral mastoid effusions, left larger than right. IMPRESSION: 1. There is no hemorrhage, mass effect, or evidence of acute territorial ischemia by CT criteria. 2. Unremarkable CT angiogram of the brain. 3. Unremarkable CT angiogram of the neck. ACT 112: Negative or not required by law. Electronically signed by: Michael Smith M.D. 06/09/2022 2:23 PM Neck CTA 06/09/22 12:56 CT ANGIOGRAM OF THE BRAIN COMBO; CT ANGIOGRAM OF THE NECK CLINICAL HISTORY: Seizure. Aneurysm. COMPARISON STUDY: CT of the brain dated 05/29/2022. MRI of the brain dated 05/30/2022. TECHNIQUE: Unenhanced axial CT scan of the brain is performed. Subsequently, following the IV administration of 120 of Optiray 320, CT angiogram of the head and neck was performed from the aortic arch to the vertex. Images are reviewed in the axial, sagittal, and coronal planes. 3-D MIPS images are created and assessed. IV contrast was administered without complication. All measurements were calculated based on NASCET criteria. A dose lowering technique was utilized adhering to the principles of ALARA. CT DOSE: 913.71 mGy.cm FINDINGS: Brain parenchyma: There is age-related involutional change noting mild subcortical and periventricular microangiopathic disease. There is no hemorrhage, mass effect, or evidence of acute territorial ischemia by CT criteria. There is no evidence of enhancing mass lesion on the angiogram phase images. The ventricles, sulci, and cisterns are prominent secondary to involutional change. Rangel-white matter differentiation is preserved. No extra- axial fluid collection is seen. Thoracic aorta: Visualized portions of the thoracic aorta are normal in caliber. The aortic arch demonstrates standard 3-vessel anatomy. Right carotid arterial system: The right common carotid artery is widely patent, as are the right internal and external carotid arteries. Calcified plaque is noted in the carotid bulb. Left carotid arterial system: The left common carotid artery is widely patent, as are the left internal and external carotid arteries. Calcified plaque is noted in the carotid bulb. Vertebral arteries: The vertebral arteries are widely patent bilaterally and codominant. Subclavian arteries: Widely patent bilaterally. Intracranial vasculature: The internal carotid arteries are patent at the skull base, as are the anterior and middle cerebral arteries bilaterally. The vertebrobasilar system and posterior cerebral arteries are widely patent. The vertebral arteries are codominant. There is a large left posterior communicating artery. There is no aneurysm, high-grade stenosis, or focal vessel cut off seen throughout the intracranial circulation. Jugular veins: Patent bilaterally. Dural sinuses: Patent. Lung apices: Partially visualized upper lobe lung parenchyma appears clear. Soft tissues: The visualized pharyngeal soft tissues are normal in appearance noting angiographic phase technique. The oropharyngeal airway appears widely patent. The salivary and thyroid glands are normal in appearance. No cervical lymphadenopathy is seen. Skeletal structures: The skeletal structures are osteopenic. The calvarium appears intact. The cervical spine is maintains noting multilevel spondylosis. No lytic or blastic lesion is seen. Orbits: The bony orbits are intact. Orbital contents are normal as visualized nothing bilateral ocular lens implants. Sinuses and mastoids: The paranasal sinuses are clear. There are small bilateral mastoid effusions, left larger than right. IMPRESSION: 1. There is no hemorrhage, mass effect, or evidence of acute territorial ischemia by CT criteria. 2. Unremarkable CT angiogram of the brain. 3. Unremarkable CT angiogram of the neck. ACT 112: Negative or not required by law. Electronically signed by: Michael Smith M.D. 06/09/2022 2:23 PM Discharge Plan Visit Data Chief Complaint: Seizure Stated Complaint: SEIZURE ED Provider: Jefferson Bartlett Discharge Problem: Seizure-like activity, Headache Forms Stand Alone Forms: [facility] Prescriptions Prescriptions: No Action nitroglycerin [Nitrostat] 0.4 mg tablet, sublingual 0.4 mg sublingual Q5M PRN (Reason: chest pain) Qty: 20 1RF Rx Instructions: 0.4 mg tablet under tongue every 5 minutes, up to a series of 3 tabs, as needed for chest discomfort. pantoprazole 40 mg tablet,delayed release (DR/EC) 40 mg PO QAM Qty: 90 1RF Rx Instructions: 1/2 hour prior to breakfast PO daily; potassium chloride 20 mEq tablet extended release 20 meq PO DAILY Qty: 30 5RF rosuvastatin [Crestor] 40 mg tablet 40 mg PO HS Qty: 90 3RF buspirone 5 mg tablet 5 mg PO BID Qty: 90 3RF Rx Instructions: CONFIRMED W/ DAUGHTER SHE ONLY TAKES BID 03/07/22 estradiol 0.075 mg/24 hr patch weekly See Rx Instructions .ROUTE .COMPLEX Qty: 4 12RF Dose Instruction: APPLY 1 PATCH TOPICALLY WEEKLY. CHANGE PATCH ON SUNDAYS Rx Instructions: APPLY 1 PATCH TOPICALLY WEEKLY. CHANGE PATCH ON SUNDAYS Eliquis 5 mg tablet 5 mg PO BID Qty: 180 3RF rivastigmine tartrate 3 mg capsule 3 mg PO BID Qty: 180 3RF bumetanide 2 mg tablet 2 mg PO BID Qty: 60 2RF memantine [Namenda] 10 mg tablet 10 mg PO BID Qty: 180 1RF calcium carbonate [Calcium 600] 600 mg calcium (1,500 mg) Tablet 1,200 mg PO QAM cholecalciferol (vitamin D3) [Vitamin D3] 25 mcg (1,000 unit) Capsule 1,000 unit PO QAM docusate sodium 100 mg Capsule 300 mg PO QAM amiodarone 200 mg Tablet 100 mg PO HS Qty: 30 0RF acetaminophen 325 mg Tablet 650 mg PO Q4H PRN (Reason: pain) Qty: 60 0RF mirtazapine 15 mg tablet 15 mg PO HS Qty: 90 3RF cyanocobalamin (vitamin B-12) 1,000 mcg/15 mL Liquid 500 mcg PO QAM Referrals Referrals: Sravan Figueroa MD [Primary Care Provider] -
[2022-06-09] MEDS ORDERED: METOCLOPRAMIDE HCL INJ 5 MG/ML 2 ML VIAL IV ONE (15:42)
[2022-06-09] MEDS ORDERED: MAGNESIUM SULFATE / D5W 1 GM/100 ML BAG IV ONE (15:42)
[2022-06-09] MEDS ORDERED: SODIUM CHLORIDE 0.9% 1000ML 500 ML IV ONE (15:43)
--- NOTE | 2022-06-09 16:51 | History & Physical Report ---
Date of Service June 09, 2022 Assessment & Plan (1) Seizure-like activity: Plan: -Admit to med/tele -The patient is currently afebrile, hemodynamically stable, and stable on RA -At this time the etiology of the patient's abnormal extremity movements is unknown. On prior admission she was evaluated by Neurology who mentioned it could be related to migraines and she did experience an episode in the ED with a migraine/headache -CTA of the head and neck today were negative for acute findings -Will hold Rivastigmine as recommended by Neurology, consult placed, they will see her tomorrow -Continue seizure precautions -BL SCD's and home Eliquis for DVT PPX -AM CBC, BMP, and Mag (2) Atrial fibrillation status post cardioversion: Plan: -Stable -Continue Eliquis and Amiodarone (3) Dementia: Plan: -Continue memantine, and Remeron -Hold rivastigmine (4) Sleep apnea: Plan: -Is non-compliant on CPAP (5) Chronic diastolic CHF (congestive heart failure): Plan: -Examines euvolemic on exam today -Will hold bumetanide for now with her hypokalemia, can restart when electrolytes are stable (6) Hypokalemia: Plan: -Noted to be 3.4 today, likely due to poor oral intake and diuretic use, Mag today was 2.1 -Will give 20 meq PO KCL now, hold Bumetanide, monitor am K+ and continue home PO KCL tomorrow -Monitor am Mag -No ECG changes, continue to monitor on tele Plan The patient was discussed with Dr. Coffey at the time of the admission History of Present Illness Chief Complaint: Possible seizure-like activity Primary Care Provider: Sravan Figueroa MD Ximena is a 76 year-old female with history of hypertension, HFpEF, hyperlipidemia, coronary artery disease, paroxysmal atrial fibrillation and dementiawho presented to the [facility] ED on 06/09/22 from her PCP's office due to recurrent episodes of extremity shaking/possible seizure-like activity. In the ED the patient was found to be afebrile, hemodynamically stable, and stable on RA. Labs were remarkable for a WBC WNL, stable Hgb and platelets, stable Cr at 1.07 with a potassium of 3.4 otherwise stable electrolytes, LFT's, CK, and troponin WNL, clear UA. CTA of the head and neck were read as "1. There is no hemorrhage, mass effect, or evidence of acute territorial ischemia by CT criteria. 2. Unremarkable CT angiogram of the brain. 3. Unremarkable CT angiogram of the neck.". The patient was given a 500 mL NSS bolus, 5 mg metoclopramide, 0.5 mg IV Ativan, 1 mg IV mag. The ED staff spoke with Neurology who recommended holding rivastigmine tartrate with observation and Neurology evaluation in the AM. Per chart review, the patient was recently admitted to [facility] from 05/29-05/30 for syncope and possible seizure-like activity. She was admitted for observation and underwent an MRI of the Brain, EEG, loop recorder placement, and orthostatic vitals. MRI of the brain was negative for acute findings and EEG was without signs of seizure-like activity. Her orthostatic vitals were negative and her loop recorder did not show episodes of arrhythmias. Her Rivastigmine dose had recently been increased prior to that admission, it was decreased back to the previous dose of 3 mg PO BID on discharge. At the time of the exam the patient was lying in bed in no acute distress with her daughter sitting beside, history was obtained from both. Her daughter states that they went for PCP follow-up earlier today for her last admission. On the way to the appointment the patient told her daughter that she had another episode of BL upper and lower extremity shaking. The patient denies losing consciousness or being confused shortly after such as a post-ictal state and did not lose function of her bowel or bladder. While at her PCP today the patient had an approximately 10 min episode of abnormal UE movements. Her daughter states that while this episode occurred the patient was able to answer questions appropriately and did not lose control of her bowels or bladder. Her glucose at the PCP's office was in the 90's per her daughter. EMS was called and the patient was brought to the ED for further evaluation. While in the ED the patient had another of abnormal arm movements and also experienced a migraine type headache. After receiving a migraine cocktail and ativan the patient's symptoms resolved. At the time of my exam the patient still has a mild headache but is much improved compared to arrival. The patient and her daughter are in agreement with observation with Neurology eval tomorrow. We discussed code status, the patient has a living will and is a DNR/DNI, her daughter would make medical decisions for her if she could not make them herself. Please refer to Dr. Coffey's attestation for any changes to the treatment plan Allergies Allergy/AdvReac Type Severity Reaction Status Date / Time gluten Allergy Intermediate Celiac Verified 06/09/22 16:33 disease latex Allergy Mild Rash Verified 06/09/22 16:33 amoxicillin AdvReac Intermediate Yeast Verified 06/09/22 16:33 infection cefdinir AdvReac Intermediate nausea Verified 06/09/22 16:33 Cephalosporins AdvReac Intermediate Yeast Verified 06/09/22 16:33 infection clavulanic acid AdvReac Intermediate Yeast Verified 06/09/22 16:33 infection prednisone AdvReac Intermediate Anxiety Verified 06/09/22 16:33 Home Medications Medication Instructions Recorded Confirmed Type docusate sodium 100 mg capsule 300 mg PO QAM 04/15/18 06/09/22 History calcium carbonate 600 mg calcium 1,200 mg PO QAM 06/08/19 06/09/22 History (1,500 mg) tablet (Calcium) cholecalciferol (vitamin D3) 25 1,000 unit PO QAM 06/08/19 06/09/22 History mcg (1,000 unit) capsule (Vitamin D3) nitroglycerin 0.4 mg sublingual 0.4 mg sublingual Q5M PRN chest 09/25/21 06/09/22 Rx tablet (Nitrostat) pain #20 tabs memantine 10 mg tablet (Namenda) 10 mg PO BID #180 tabs 11/11/21 06/09/22 Rx cyanocobalamin (vitamin B-12) 500 mcg PO QAM 12/08/21 06/09/22 History 1,000 mcg/15 mL oral liquid pantoprazole 40 mg tablet,delayed 40 mg PO QAM #90 tabs 01/05/22 06/09/22 Rx release potassium chloride 20 mEq 20 meq PO DAILY #30 tabs 01/18/22 06/09/22 Rx tablet,extended release rosuvastatin 40 mg tablet (Crestor) 40 mg PO HS #90 tabs 02/21/22 06/09/22 Rx amiodarone 200 mg tablet 100 mg PO HS #30 tabs 03/04/22 06/09/22 Rx buspirone 5 mg tablet 5 mg PO BID #90 tabs 03/07/22 06/09/22 Rx estradiol 0.075 mg/24 hr weekly See Rx Instructions .Route 04/11/22 06/09/22 Rx transdermal patch .COMPLEX #4 patches apixaban 5 mg tablet (Eliquis) 5 mg PO BID #180 tabs 04/29/22 06/09/22 Rx bumetanide 2 mg tablet 2 mg PO BID #60 tabs 05/27/22 06/09/22 Rx acetaminophen 325 mg tablet 650 mg PO Q4H PRN pain #60 tabs 05/30/22 06/09/22 Rx mirtazapine 15 mg tablet 15 mg PO HS #90 tabs 05/30/22 06/09/22 Rx rivastigmine tartrate 3 mg capsule 3 mg PO BID #180 caps 06/02/22 06/09/22 Rx Past Med/Surg History Medical History Acute blood loss anemia (ABLA) Acute hyponatremia Anemia RECEIVED 2 UNITS [facility] 04/2021 RECENT ADMISSION Atypical chest pain CAD (coronary artery disease) Medically managed by cardiology NSTEMI 07/27/20- cath demonstrated small branch vessel disease involving small OM to, not amenable to intervention. CD (celiac disease) "Does not" follow gluten-free diet Chest pressure Chronic diastolic congestive heart failure Constipation Degenerative disc disease Diastolic CHF Diverticulitis 2014 Dyslipidemia GI bleed reason for Endoscopy History of paroxysmal supraventricular tachycardia with atrial tachycardia Hypercholesterolemia Hypertension Low back pain with sciatica Nausea & vomiting Non-ST elevation ND (NSTEMI) 07/27/20 Obstructive sleep apnea Ocular migraine Open wound of buttock Paroxysmal atrial fibrillation Sleep apnea CPAP Vertigo Surgical History History of arthroscopy of right shoulder RCR History of cardiac cath 2016, 07/28/20 ([place]) > no stents History of cardioversion x2, most recent 04/2019 History of carpal tunnel release R/L History of cataract surgery R/L History of cholecystectomy History of colonoscopy History of esophagogastroduodenoscopy (EGD) History of foot surgery R/L feet "to straighten toes" History of fracture of left shoulder Plate + screws History of hysterectomy JOANNA + BSO History of incision and drainage Right foot History of tonsillectomy History of total knee replacement Left x2, right x1 S/P transesophageal echocardiogram (JOHANA) Status post placement of implantable loop recorder Implanted 12/2019 - Follows Dr. Yoo > to see Dr. Powers this afternoon for check Family History Mother Family hx of colon cancer Colorectal cancer Brother Prostate cancer Family history of diabetes mellitus Father Dissecting aortic aneurysm Myocardial infarction Grandmother (Maternal) Stroke Other No family history of adverse response to anesthesia Denies family history of Ovarian cancer Breast cancer Social History Smoking Status: Former smoker Tobacco Type: Cigarettes Age Started Using Tobacco: 19; Age Quit Using Tobacco: 27; packs per day: 0.25; Second Hand Exposure: No; Do You Dip or Chew Tobacco: No; Tobacco Cessation Education Requested by Patient: No Hx Alcohol Use: Yes Alcohol type: wine Hx Substance Use: No Preferred Language: Croatian Communication Ability: Effective Visual Impairment: No Limitations Hearing Ability: Normal 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 Beliefs That Will Affect Care: None marital status: Current Living Situation: Alone Current Living Situation Comment: just left her current occupational status: retired Other Information That Helps Us Care for You: 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 All systems have been reviewed and are otherwise negative. Physical Exam Physical Exam: Physical Exam: General: In no acute distress, older than stated age, malnourished, chronically ill-appearing HEENT: Normocephalic, atraumatic, no scleral icterus, pupils around round, symmetrical, and reactive to light, moist mucus membranes, trachea midline, no thyromegaly Chest/Pulm: No respiratory distress, symmetrical chest expansion, clear breath sounds throughout Cardiac: irregular rate and rhythm, no murmurs noted Abdomen: Negative for ascites and bruising, normoactive bowel sounds, soft, non-tender to palpation throughout Musculoskeletal: Symmetrical and without signs of acute trauma, upper and lower extremities with full ROM, no atrophy, spasticity, or flaccidity Extremities: Radial, dorsalis pedis, and posterior tibial pulses are intact and symmetrical, no edema noted in the BL LE's Skin: Warm, dry, no rashes , lesions, or scars noted Neuro: Alert and oriented to person, place, and year, no focal defects, CN II-XII tested and intact, negative pronator drift, no tremors noted Psych: No acute distress, calm and cooperative during the exam Results & Data Results & Data ([facility]) Vital Signs (Past 12 Hours) Vital Signs Temp Pulse Resp BP Pulse Ox O2 Del Method 06/09/22 16:42 57 L 06/09/22 16:26 Room Air 06/09/22 15:30 57 L 16 97 06/09/22 15:30 121/49 L 06/09/22 15:20 60 20 99 06/09/22 15:10 60 18 98 06/09/22 15:00 60 15 97 06/09/22 15:00 134/52 L 06/09/22 14:50 59 L 15 100 06/09/22 14:40 61 19 100 06/09/22 14:31 118/54 L 06/09/22 14:31 127 H 14 95 06/09/22 14:30 61 18 95 06/09/22 14:20 60 13 98 06/09/22 14:16 144/57 H 06/09/22 14:16 71 14 06/09/22 13:40 20 97 06/09/22 13:30 61 11 L 95 06/09/22 13:20 62 17 98 06/09/22 13:10 64 14 97 06/09/22 13:00 61 16 98 06/09/22 12:50 65 16 97 06/09/22 12:40 148 H 16 90 06/09/22 12:36 67 21 100 06/09/22 12:38 71 06/09/22 12:23 65 16 100 06/09/22 12:23 36.8 C 71 18 148/47 H 100 Room Air Laboratory Results Abnormal lab results 06/09/22 06/09/22 06/09/22 Range/Units 12:34 12:34 13:50 RBC 3.85 L (4.20-5.40) M/uL Hct 35.8 L (37.0-47.0) % Parker # (Auto) 0.72 H (0.11-0.59) K/uL Potassium 3.4 L (3.5-5.1) mmol/L Carbon Dioxide 37 H (21-32) mmol/L Urine pH 8.5 H (4.5-7.5) Diagnostic Findings Head CTA 06/09/22 12:56 CT ANGIOGRAM OF THE BRAIN COMBO; CT ANGIOGRAM OF THE NECK CLINICAL HISTORY: Seizure. Aneurysm. COMPARISON STUDY: CT of the brain dated 05/29/2022. MRI of the brain dated 05/30/2022. TECHNIQUE: Unenhanced axial CT scan of the brain is performed. Subsequently, following the IV administration of 120 of Optiray 320, CT angiogram of the head and neck was performed from the aortic arch to the vertex. Images are reviewed in the axial, sagittal, and coronal planes. 3-D MIPS images are created and assessed. IV contrast was administered without complication. All measurements were calculated based on NASCET criteria. A dose lowering technique was utilized adhering to the principles of ALARA. CT DOSE: 913.71 mGy.cm FINDINGS: Brain parenchyma: There is age-related involutional change noting mild subcortical and periventricular microangiopathic disease. There is no hemorrhage, mass effect, or evidence of acute territorial ischemia by CT criteria. There is no evidence of enhancing mass lesion on the angiogram phase images. The ventricles, sulci, and cisterns are prominent secondary to involutional change. Rangel-white matter differentiation is preserved. No extra- axial fluid collection is seen. Thoracic aorta: Visualized portions of the thoracic aorta are normal in caliber. The aortic arch demonstrates standard 3-vessel anatomy. Right carotid arterial system: The right common carotid artery is widely patent, as are the right internal and external carotid arteries. Calcified plaque is noted in the carotid bulb. Left carotid arterial system: The left common carotid artery is widely patent, as are the left internal and external carotid arteries. Calcified plaque is noted in the carotid bulb. Vertebral arteries: The vertebral arteries are widely patent bilaterally and codominant. Subclavian arteries: Widely patent bilaterally. Intracranial vasculature: The internal carotid arteries are patent at the skull base, as are the anterior and middle cerebral arteries bilaterally. The vertebrobasilar system and posterior cerebral arteries are widely patent. The vertebral arteries are codominant. There is a large left posterior communicating artery. There is no aneurysm, high-grade stenosis, or focal vessel cut off seen throughout the intracranial circulation. Jugular veins: Patent bilaterally. Dural sinuses: Patent. Lung apices: Partially visualized upper lobe lung parenchyma appears clear. Soft tissues: The visualized pharyngeal soft tissues are normal in appearance noting angiographic phase technique. The oropharyngeal airway appears widely patent. The salivary and thyroid glands are normal in appearance. No cervical lymphadenopathy is seen. Skeletal structures: The skeletal structures are osteopenic. The calvarium appears intact. The cervical spine is maintains noting multilevel spondylosis. No lytic or blastic lesion is seen. Orbits: The bony orbits are intact. Orbital contents are normal as visualized nothing bilateral ocular lens implants. Sinuses and mastoids: The paranasal sinuses are clear. There are small bilateral mastoid effusions, left larger than right. IMPRESSION: 1. There is no hemorrhage, mass effect, or evidence of acute territorial ischemia by CT criteria. 2. Unremarkable CT angiogram of the brain. 3. Unremarkable CT angiogram of the neck. ACT 112: Negative or not required by law. Electronically signed by: Michael Smith M.D. 06/09/2022 2:23 PM Neck CTA 06/09/22 12:56 CT ANGIOGRAM OF THE BRAIN COMBO; CT ANGIOGRAM OF THE NECK CLINICAL HISTORY: Seizure. Aneurysm. COMPARISON STUDY: CT of the brain dated 05/29/2022. MRI of the brain dated 05/30/2022. TECHNIQUE: Unenhanced axial CT scan of the brain is performed. Subsequently, following the IV administration of 120 of Optiray 320, CT angiogram of the head and neck was performed from the aortic arch to the vertex. Images are reviewed in the axial, sagittal, and coronal planes. 3-D MIPS images are created and assessed. IV contrast was administered without complication. All measurements were calculated based on NASCET criteria. A dose lowering technique was utili zed adhering to the principles of ALARA. CT DOSE: 913.71 mGy.cm FINDINGS: Brain parenchyma: There is age-related involutional change noting mild subcortical and periventricular microangiopathic disease. There is no hemorrhage, mass effect, or evidence of acute territorial ischemia by CT criteria. There is no evidence of enhancing mass lesion on the angiogram phase images. The ventricles, sulci, and cisterns are prominent secondary to involutional change. Rangel-white matter differentiation is preserved. No extra- axial fluid collection is seen. Thoracic aorta: Visualized portions of the thoracic aorta are normal in caliber. The aortic arch demonstrates standard 3-vessel anatomy. Right carotid arterial system: The right common carotid artery is widely patent, as are the right internal and external carotid arteries. Calcified plaque is noted in the carotid bulb. Left carotid arterial system: The left common carotid artery is widely patent, as are the left internal and external carotid arteries. Calcified plaque is noted in the carotid bulb. Vertebral arteries: The vertebral arteries are widely patent bilaterally and codominant. Subclavian arteries: Widely patent bilaterally. Intracranial vasculature: The internal carotid arteries are patent at the skull base, as are the anterior and middle cerebral arteries bilaterally. The vertebrobasilar system and posterior cerebral arteries are widely patent. The vertebral arteries are codominant. There is a large left posterior communicating artery. There is no aneurysm, high-grade stenosis, or focal vessel cut off seen throughout the intracranial circulation. Jugular veins: Patent bilaterally. Dural sinuses: Patent. Lung apices: Partially visualized upper lobe lung parenchyma appears clear. Soft tissues: The visualized pharyngeal soft tissues are normal in appearance noting angiographic phase technique. The oropharyngeal airway appears widely patent. The salivary and thyroid glands are normal in appearance. No cervical lymphadenopathy is seen. Skeletal structures: The skeletal structures are osteopenic. The calvarium appears intact. The cervical spine is maintains noting multilevel spondylosis. No lytic or blastic lesion is seen. Orbits: The bony orbits are intact. Orbital contents are normal as visualized nothing bilateral ocular lens implants. Sinuses and mastoids: The paranasal sinuses are clear. There are small bilateral mastoid effusions, left larger than right. IMPRESSION: 1. There is no hemorrhage, mass effect, or evidence of acute territorial ischemia by CT criteria. 2. Unremarkable CT angiogram of the brain. 3. Unremarkable CT angiogram of the neck. ACT 112: Negative or not required by law. Electronically signed by: Michael Smith M.D. 06/09/2022 2:23 PM ECG Additional Comments: Normal sinus rhythm Normal ECG When compared with ECG of 29-MAY-2022 18:01, No significant change Confirmed by Jayy Jaimes ([id number]) on 06/09/2022 12:54:32 PM Code Status & VTE Plan Code Status DNR/DNI VTE Prophylaxis Plan VTE Prophylaxis will be ordered: Yes Supervising Physician Co-Signing Physician Notes I personally saw and examined the patient. I verified all cramer points and agree with Cirilo Sosa PA-C with the following exceptions and/or additions: 77 year old female presents to the ER with seizure -like activity in her PCP office earlier today although she reports awake during this event. O/E Alert, CN 2-> 12 intact, no pronator drift, no extremity weakness or change in sensation, HS RRR, no murmurs, Chest CTAB, Abdo SNT A/P Seizure like activity - ER provider already discussed with neurology and suspected not to be true seizures, recommend trial of rivastigmine and observation in hospital setting. Consult neurology for ongoing recommendations. PG Care Time/CCT Total # of Minutes Spent Total Time Spent with Patient: Total time spent is greater than 50% in coordination of care (as documented) at patient's floor/unit and/or counseling patient: Coding [place] [address] INT INP/OBS CARE 2/55MIN Patient Type Established Medical Decision Making High Complexity Diagnoses Seizure-like activity R56.9 Atrial fibrillation status post cardioversion I48.91 Dementia F03.90 Sleep apnea G47.30 Chronic diastolic CHF (congestive heart failure) I50.32 Hypokalemia E87.6
[2022-06-09] MEDS ORDERED: POTASSIUM CHLORIDE PWD 20 MEQ PACK PO STA (17:39)
[2022-06-09] MEDS ORDERED: POLYETHYLENE (MIRALAX) 17 GM PACK PO ONE (17:45)
[2022-06-09] MEDS ORDERED: ACETAMINOPHEN 325 MG TAB PO PRN (19:57)
[2022-06-09] MEDS ORDERED: ROSUVASTATIN CALCIUM 20 MG TAB PO SCH (21:00)
[2022-06-09] MEDS ORDERED: MIRTAZAPINE TAB 15 MG TAB PO SCH (21:00)
[2022-06-09] MEDS ORDERED: AMIODARONE 200 MG TAB PO SCH (21:00)
[2022-06-09] MEDS: MEMANTINE HCL 10 MG TAB PO SCH (21:17)
[2022-06-09] MEDS: APIXABAN 5 MG TABLET PO SCH (21:18)
[2022-06-09] MEDS: busPIRone 5 MG TAB PO SCH (21:18)
[2022-06-10 06:45] LABS: Basophils # (auto) 0.06 K/uL (0-0.2); Basophils % (auto) 1.3 %; Eosinophils % (auto) 2.1 %; Hematocrit (blood only) 33.4 % (37.0-47.0); Hemoglobin 11.5 g/dl (12.0-16.0); Immature Granulocytes # (auto) 0.01 K/uL (0.01-0.20); Immature Granulocytes % (auto) 0.2 %; Lymphocytes # (auto) 1.99 K/uL (1.2-3.4); Lymphocytes % (auto) 42.2 %; Mean Corpuscular Hgb Conc 34.4 g/dL (32.0-36.0); Mean Platelet Volume 11.1 fL (9.4-12.4); Monocytes # (auto) 0.62 K/uL (0.11-0.59); Monocytes % (auto) 13.1 %; Neutrophils # (auto) 1.94 K/uL (1.40-6.50); Neutrophils % (auto) 41.1 %; Platelet Count 251 K/uL (130-400); RDW Coefficient of Variation 13.5 % (11.5-14.5); RDW Standard Deviation 44.4 fL (36.4-46.3); Red Blood Count 3.71 M/uL (4.20-5.40); White Blood Count 4.72 K/ul (4.8-10.8)
[2022-06-10 07:10] LABS: BUN Creatinine Ratio 12.8 (10-20); Calcium 8.8 mg/dl (8.5-10.1); Creatinine Clr Calc Pharmacy 51.4 ml/min; Est GFR (African American) 67.8 ml/min; Est GFR (Non-African American) 58.5 ml/min; Magnesium 2.3 mg/dl (1.7-2.4); Potassium 3.6 mmol/L (3.5-5.1)
[2022-06-10] MEDS ORDERED: POTASSIUM CHLORIDE CRTAB 20 MEQ TABCR PO SCH (09:00)
[2022-06-10] MEDS ORDERED: DOCUSATE SODIUM 100 MG CAP PO SCH (09:00)
[2022-06-10] MEDS ORDERED: PANTOprazole 40 MG TAB PO SCH (09:00)
[2022-06-10] MEDS ORDERED: POLYETHYLENE (MIRALAX) 17 GM PACK PO SCH (09:00)
[2022-06-10] MEDS: APIXABAN 5 MG TABLET PO SCH (09:44)
[2022-06-10] MEDS: MEMANTINE HCL 10 MG TAB PO SCH (09:44)
[2022-06-10] MEDS: busPIRone 5 MG TAB PO SCH (09:44)
--- NOTE | 2022-06-10 11:58 | Neurology Consultation ---
Date of Consultation June 10, 2022 Assessment & Plan (1) Tremor: Plan NEUROLOGY CONSULTATION Assessment & Plan: Impression: pt with ill defined tremors that is perhaps related to her medication, Rivastigmine. it can sometimes cause tremors. i do not feel she had seizures. Her being dehydrated and near syncopal like symptoms perhaps also contributing. Recommendations: -at this point, no need for further work up. ok with holding rivastigmine. no need for weaning as she was on low dose. she can f/u with her neurology as routine once discharged. not much to add from neurology at this point. will sign off. avoid dehydration and sudden position change. Dr. Jefferson Das MD [facility] Neurology Chief Complaint: tremor History of Present Illness: pt with resolved tremors and this morning feeling well. her description of the tremors are very odd and not suggestive of seizure. she feels her new med rivastigmine is the cause. she had extensive work up recently and no obvious problems. negative mri brain and EEG. Admission/Initial HPI documentation: Ximena is a 76 year-old female with history of hypertension, HFpEF, hyperlipidemia, coronary artery disease, paroxysmal atrial fibrillation and dementiawho presented to the [facility] ED on 06/09/22 from her PCP's office due to recurrent episodes of extremity shaking/possible seizure-like activity. In the ED the patient was found to be afebrile, hemodynamically stable, and stable on RA. Labs were remarkable for a WBC WNL, stable Hgb and platelets, stable Cr at 1.07 with a potassium of 3.4 otherwise stable electrolytes, LFT's, CK, and troponin WNL, clear UA. CTA of the head and neck were read as "1. There is no hemorrhage, mass effect, or evidence of acute territorial ischemia by CT criteria. 2. Unremarkable CT angiogram of the brain. 3. Unremarkable CT angiogram of the neck.". The patient was given a 500 mL NSS bolus, 5 mg metoclopramide, 0.5 mg IV Ativan, 1 mg IV mag. The ED staff spoke with Neurology who recommended holding rivastigmine tartrate with observation and Neurology evaluation in the AM. Per chart review, the patient was recently admitted to [facility] from 05/29-05/30 for syncope and possible seizure-like activity. She was admitted for observation and underwent an MRI of the Brain, EEG, loop recorder placement, and orthostatic vitals. MRI of the brain was negative for acute findings and EEG was without signs of seizure-like activity. Her orthostatic vitals were negative and her loop recorder did not show episodes of arrhythmias. Her Rivastigmine dose had recently been increased prior to that admission, it was decreased back to the previous dose of 3 mg PO BID on discharge. At the time of the exam the patient was lying in bed in no acute distress with her daughter sitting beside, history was obtained from both. Her daughter states that they went for PCP follow-up earlier today for her last admission. On the way to the appointment the patient told her daughter that she had another episode of BL upper and lower extremity shaking. The patient denies losing consciousness or being confused shortly after such as a post-ictal state and did not lose function of her bowel or bladder. While at her PCP today the patient had an approximately 10 min episode of abnormal UE movements. Her daughter states that while this episode occurred the patient was able to answer questions appropriately and did not lose control of her bowels or bladder. Her glucose at the PCP's office was in the 90's per her daughter. EMS was called and the patient was brought to the ED for further evaluation. While in the ED the patient had another of abnormal arm movements and also experienced a migraine type headache. After receiving a migraine cocktail and ativan the patient's s ymptoms resolved. At the time of my exam the patient still has a mild headache but is much improved compared to arrival. The patient and her daughter are in agreement with observation with Neurology eval tomorrow. We discussed code status, the patient has a living will and is a DNR/DNI, her daughter would make medical decisions for her if she could not make them herself. Past Medical History: See chart Meds: See chart I personally reviewed all of the medications Social & Family History: See chart Review of Systems: Per initial HPI on admission. Physical Exam: GEN: NAD HEENT: Normocephalic Neuro: Mental status:A & O x 3.No dysarthria or aphasia.No neglect. Fluent speech. No apraxia Cranial Nerves:II-XII intact Motor:Normal bulk and tone,5/5 strength x 4 extremities. no abnormal movements noted. Coordination:Intact FTN testing Reflexes: down going toes linnea Sensation: Intact x 4 extremities to touch Gait:intact Chart reviewed I have spent more than 50% educating patient about potential diagnosis and neurological evaluation and coordinating care with patient's treatment team. Total time spent (including chart review and coordination of care): 80 min (this includes chart review). History of Present Illness Attending Physician: Valentina Guillen DO Allergies Allergy/AdvReac Type Severity Reaction Status Date / Time gluten Allergy Intermediate Celiac Verified 06/09/22 16:33 disease latex Allergy Mild Rash Verified 06/09/22 16:33 amoxicillin AdvReac Intermediate Yeast Verified 06/09/22 16:33 infection cefdinir AdvReac Intermediate nausea Verified 06/09/22 16:33 Cephalosporins AdvReac Intermediate Yeast Verified 06/09/22 16:33 infection clavulanic acid AdvReac Intermediate Yeast Verified 06/09/22 16:33 infection prednisone AdvReac Intermediate Anxiety Verified 06/09/22 16:33 Home Medications Medication Instructions Recorded Confirmed Type docusate sodium 100 mg capsule 300 mg PO QAM 04/15/18 06/09/22 History calcium carbonate 600 mg calcium 1,200 mg PO QAM 06/08/19 06/09/22 History (1,500 mg) tablet (Calcium) cholecalciferol (vitamin D3) 25 1,000 unit PO QAM 06/08/19 06/09/22 History mcg (1,000 unit) capsule (Vitamin D3) nitroglycerin 0.4 mg sublingual 0.4 mg sublingual Q5M PRN chest 09/25/21 06/09/22 Rx tablet (Nitrostat) pain #20 tabs memantine 10 mg tablet (Namenda) 10 mg PO BID #180 tabs 11/11/21 06/09/22 Rx cyanocobalamin (vitamin B-12) 500 mcg PO QAM 12/08/21 06/09/22 History 1,000 mcg/15 mL oral liquid pantoprazole 40 mg tablet,delayed 40 mg PO QAM #90 tabs 01/05/22 06/09/22 Rx release potassium chloride 20 mEq 20 meq PO DAILY #30 tabs 01/18/22 06/09/22 Rx tablet,extended release rosuvastatin 40 mg tablet (Crestor) 40 mg PO HS #90 tabs 02/21/22 06/09/22 Rx amiodarone 200 mg tablet 100 mg PO HS #30 tabs 03/04/22 06/09/22 Rx buspirone 5 mg tablet 5 mg PO BID #90 tabs 03/07/22 06/09/22 Rx estradiol 0.075 mg/24 hr weekly See Rx Instructions .Route 04/11/22 06/09/22 Rx transdermal patch .COMPLEX #4 patches apixaban 5 mg tablet (Eliquis) 5 mg PO BID #180 tabs 04/29/22 06/09/22 Rx bumetanide 2 mg tablet 2 mg PO BID #60 tabs 05/27/22 06/09/22 Rx acetaminophen 325 mg tablet 650 mg PO Q4H PRN pain #60 tabs 05/30/22 06/09/22 Rx mirtazapine 15 mg tablet 15 mg PO HS #90 tabs 05/30/22 06/09/22 Rx rivastigmine tartrate 3 mg capsule 3 mg PO BID #180 caps 06/02/22 06/09/22 Rx Patient History Medical History Acute blood loss anemia (ABLA) Acute hyponatremia Anemia RECEIVED 2 UNITS [facility] 04/2021 RECENT ADMISSION Atypical chest pain CAD (coronary artery disease) Medically managed by cardiology NSTEMI 07/27/20- cath demonstrated small branch vessel disease involving small OM to, not amenable to intervention. CD (celiac disease) "Does not" follow gluten-free diet Chest pressure Chronic diastolic congestive heart failure Constipation Degenerative disc disease Diastolic CHF Diverticulitis 2013 Dyslipidemia GI bleed reason for Endoscopy History of paroxysmal supraventricular tachycardia with atrial tachycardia Hypercholesterolemia Hypertension Low back pain with sciatica Nausea & vomiting Non-ST elevation SD (NSTEMI) 07/27/20 Obstructive sleep apnea Ocular migraine Open wound of buttock Paroxysmal atrial fibrillation Sleep apnea CPAP Vertigo Surgical History History of arthroscopy of right shoulder RCR History of cardiac cath 2016, 07/28/20 ([place]) > no stents History of cardioversion x2, most recent 04/2019 History of carpal tunnel release R/L History of cataract surgery R/L History of cholecystectomy History of colonoscopy History of esophagogastroduodenoscopy (EGD) History of foot surgery R/L feet "to straighten toes" History of fracture of left shoulder Plate + screws History of hysterectomy JOANNA + BSO History of incision and drainage Right foot History of tonsillectomy History of total knee replacement Left x2, right x1 S/P transesophageal echocardiogram (JOHANA) Status post placement of implantable loop recorder Implanted 12/2019 - Follows Dr. Yoo > to see Dr. Powers this afternoon for check Family History Mother Family hx of colon cancer Colorectal cancer Brother Prostate cancer Family history of diabetes mellitus Father Dissecting aortic aneurysm Myocardial infarction Grandmother (Maternal) Stroke Other No family history of adverse response to anesthesia Denies family history of Ovarian cancer Breast cancer Social History Smoking Status: Former smoker Tobacco Type: Cigarettes Age Started Using Tobacco: 19; Age Quit Using Tobacco: 27; packs per day: 0.25; Second Hand Exposure: No; Do You Dip or Chew Tobacco: No; Tobacco Cessation Education Requested by Patient: No Hx Alcohol Use: Yes Alcohol type: wine Hx Substance Use: No Preferred Language: Indonesian Communication Ability: Effective Visual Impairment: No Limitations Hearing Ability: Normal Accounts Payable Coordinator Required: No Beliefs That Will Affect Care: None marital status: Current Living Situation: Alone Current Living Situation Comment: just left her current occupational status: retired Other Information That Helps Us Care for You: 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; 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 [employer]; 3 children Feels Safe at Home: Yes Safety Concerns: Feels Safe At This Time Childhood Exposure to Second-Hand Smoke: No Dental Care, Regularly: Yes Seatbelt Use: always Sunscreen Use: Yes Assistive Devices: None Assistive Devices Comment: dentures Results & Data ([facility]) Vital Signs (Past 12 Hours) Vital Signs Temp Pulse Pulse Pulse Resp BP Pulse Ox 06/10/22 11:52 36.4 C L 51 L 16 119/56 L 96 06/10/22 09:40 61 06/10/22 07:21 36.9 C 55 L 16 114/50 L 95 06/10/22 07:13 57 L 06/10/22 04:03 36.3 C L 56 L 18 112/53 L 97 06/10/22 00:00 58 L 03/10/23 00:01 36.6 C 60 18 104/44 L 97 O2 Del Method 06/10/22 11:52 Room Air 06/10/22 09:40 06/10/22 07:21 Room Air 06/10/22 07:13 06/10/22 04:03 Room Air 06/10/22 00:00 06/10/22 00:01 Room Air
--- NOTE | 2022-06-10 13:16 | Discharge Summary ---
Discharge Summary Date of Service June 10, 2022 Admission HPI Per Admitting Provider Ximena is a 76 year-old female with history of hypertension, HFpEF, hyperlipidemia, coronary artery disease, paroxysmal atrial fibrillation and dementiawho presented to the [facility] ED on 06/09/22 from her PCP's office due to recurrent episodes of extremity shaking/possible seizure-like activity. In the ED the patient was found to be afebrile, hemodynamically stable, and stable on RA. Labs were remarkable for a WBC WNL, stable Hgb and platelets, stable Cr at 1.07 with a potassium of 3.4 otherwise stable electrolytes, LFT's, CK, and troponin WNL, clear UA. CTA of the head and neck were read as "1. There is no hemorrhage, mass effect, or evidence of acute territorial ischemia by CT criteria. 2. Unremarkable CT angiogram of the brain. 3. Unremarkable CT angiogram of the neck.". The patient was given a 500 mL NSS bolus, 5 mg metoclopramide, 0.5 mg IV Ativan, 1 mg IV mag. The ED staff spoke with Neurology who recommended holding rivastigmine tartrate with observation and Neurology evaluation in the AM. Per chart review, the patient was recently admitted to [facility] from 05/29-05/30 for syncope and possible seizure-like activity. She was admitted for observation and underwent an MRI of the Brain, EEG, loop recorder placement, and orthostatic vitals. MRI of the brain was negative for acute findings and EEG was without signs of seizure-like activity. Her orthostatic vitals were negative and her loop recorder did not show episodes of arrhythmias. Her Rivastigmine dose had recently been increased prior to that admission, it was decreased back to the previous dose of 3 mg PO BID on discharge. At the time of the exam the patient was lying in bed in no acute distress with her daughter sitting beside, history was obtained from both. Her daughter states that they went for PCP follow-up earlier today for her last admission. On the way to the appointment the patient told her daughter that she had another episode of BL upper and lower extremity shaking. The patient denies losing consciousness or being confused shortly after such as a post-ictal state and did not lose function of her bowel or bladder. While at her PCP today the patient had an approximately 10 min episode of abnormal UE movements. Her daughter states that while this episode occurred the patient was able to answer questions appropriately and did not lose control of her bowels or bladder. Her glucose at the PCP's office was in the 90's per her daughter. EMS was called and the patient was brought to the ED for further evaluation. While in the ED the patient had another of abnormal arm movements and also experienced a migraine type headache. After receiving a migraine cocktail and ativan the patient's symptoms resolved. At the time of my exam the patient still has a mild headache but is much improved compared to arrival. The patient and her daughter are in agreement with observation with Neurology eval tomorrow. We discussed code status, the patient has a living will and is a DNR/DNI, her daughter would make medical decisions for her if she could not make them herself. Please refer to Dr. Coffey's attestation for any changes to the treatment plan Admission Exam Per Admitting Provider General: In no acute distress, older than stated age, malnourished, chronically ill-appearing HEENT: Normocephalic, atraumatic, no scleral icterus, pupils around round, symmetrical, and reactive to light, moist mucus membranes, trachea midline, no thyromegaly Chest/Pulm: No respiratory distress, symmetrical chest expansion, clear breath sounds throughout Cardiac: irregular rate and rhythm, no murmurs noted Abdomen: Negative for ascites and bruising, normoactive bowel sounds, soft, non-tender to palpation throughout Musculoskeletal: Symmetrical and without signs of acute trauma, upper and lower extremities with full ROM, no atrophy, spasticity, or flaccidity Extremities: Radial, dorsalis pedis, and posterior tibial pulses are intact and symmetrical, no edema noted in the BL LE's Skin: Warm, dry, no rashes , lesions, or scars noted Neuro: Alert and oriented to person, place, and year, no focal defects, CN II-XII tested and intact, negative pronator drift, no tremors noted Psych: No acute distress, calm and cooperative during the exam Principal Dx & Hospital Course #1 = Principal Diagnosis (1) Tremor: (2) Atrial fibrillation status post cardioversion: (3) Dementia: (4) Sleep apnea: (5) Chronic diastolic CHF (congestive heart failure): (6) Hypokalemia: Plan Limb spasms/tremors: -Initially reported as seizure-like, however patient alert and talking/standing during episodes at times, no bowel/bladder incontinence, no post-ictal states -At this time the etiology of the patient's abnormal extremity movements is unknown. On prior admission she was evaluated by Neurology who mentioned it could be related to migraines and she did experience an episode in the ED with a migraine/headache -CTA of the head and neck were negative for acute findings -Electrolytes relatively normal, mild hypokalemia on admission with normal magnesium, since resolved -Recent admit for similar episodes with normal EEG and brain MRI -Also question if rivastigmine is playing a role, patient feels episodes and medication coincide. Will stop this medication for discharge with Neuro follow up; no episodes since admission Atrial fibrillation status post cardioversion: -Stable -Continue Eliquis and Amiodarone Dementia: -Continue memantine, and Remeron -Hold rivastigmine Sleep apnea: -Is non-compliant on CPAP Chronic diastolic CHF (congestive heart failure): -Examines euvolemic this admission -Continue diuretics Hypokalemia: -3.4 ->3.6 on day of discharge -Recommend continuing to monitor K level on Bumex, and adjust KCl daily supplement as needed to account for losses Discharge Exam Constitutional WD/WN, vitals as above Respiratory normal respiratory effort, lungs clear to auscultation Cardiovascular RRR, no murmur, no edema Neurologic no tremors noted today Psychiatric A+Ox3, euthymic affect Updated Medication List Medication Instructions Recorded Confirmed Type docusate sodium 100 mg capsule 300 mg PO QAM 04/15/18 06/09/22 History calcium carbonate 600 mg calcium 1,200 mg PO QAM 06/08/19 06/09/22 History (1,500 mg) tablet (Calcium) cholecalciferol (vitamin D3) 25 1,000 unit PO QAM 06/08/19 06/09/22 History mcg (1,000 unit) capsule (Vitamin D3) nitroglycerin 0.4 mg sublingual 0.4 mg sublingual Q5M PRN chest 09/25/21 06/09/22 Rx tablet (Nitrostat) pain #20 tabs memantine 10 mg tablet (Namenda) 10 mg PO BID #180 tabs 11/11/21 06/09/22 Rx cyanocobalamin (vitamin B-12) 500 mcg PO QAM 12/08/21 06/09/22 History 1,000 mcg/15 mL oral liquid pantoprazole 40 mg tablet,delayed 40 mg PO QAM #90 tabs 01/05/22 06/09/22 Rx release potassium chloride 20 mEq 20 meq PO DAILY #30 tabs 01/18/22 06/09/22 Rx tablet,extended release rosuvastatin 40 mg tablet (Crestor) 40 mg PO HS #90 tabs 02/21/22 06/09/22 Rx amiodarone 200 mg tablet 100 mg PO HS #30 tabs 03/04/22 06/09/22 Rx buspirone 5 mg tablet 5 mg PO BID #90 tabs 03/07/22 06/09/22 Rx estradiol 0.075 mg/24 hr weekly See Rx Instructions .Route 04/11/22 06/09/22 Rx transdermal patch .COMPLEX #4 patches apixaban 5 mg tablet (Eliquis) 5 mg PO BID #180 tabs 04/29/22 06/09/22 Rx bumetanide 2 mg tablet 2 mg PO BID #60 tabs 05/27/22 06/09/22 Rx acetaminophen 325 mg tablet 650 mg PO Q4H PRN pain #60 tabs 05/30/22 06/09/22 Rx mirtazapine 15 mg tablet 15 mg PO HS #90 tabs 05/30/22 06/09/22 Rx Hospital Stay Data Consultations 06/09/22 19:57 Consult Neurology Routine Diagnostic Imagining Performed 06/09/22 12:56 CTA head wo/w [CT angio head wo/w] Stat CTA neck with con [CT angio neck with con] Stat Discharge Instructions Given to Patient (Per Discharging Provider) Limb spasms/tremors: -Initially reported as seizure-like, however patient alert and talking/standing during episodes at times, no bowel/bladder incontinence, no post-ictal states -At this time the etiology of the patient's abnormal extremity movements is unknown. On prior admission she was evaluated by Neurology who mentioned it could be related to migraines and she did experience an episode in the ED with a migraine/headache -Also question if rivastigmine is playing a role, patient feels episodes and medication coincide. Will stop this medication for discharge with Neuro follow up -CTA of the head and neck were negative for acute findings -Electrolytes relatively normal, mild hypokalemia on admission with normal magnesium, since resolved -Recent admit for similar episodes with normal EEG and brain MRI Atrial fibrillation status post cardioversion: -Stable -Continue Eliquis and Amiodarone Dementia: -Continue memantine, and Remeron -Hold rivastigmine Sleep apnea: -Is non-compliant on CPAP Chronic diastolic CHF (congestive heart failure): -Examines euvolemic this admission -Continue diuretics Hypokalemia: -3.4 ->3.6 on day of discharge -Recommend continuing to monitor K level on Bumex, and adjust KCl daily supplement as needed to account for losses Total Time Total Time Spent Total Time Spent (In Minutes): 35 min Coding Level of Care Code 19505 INP/OBS DISCH >30 MIN Diagnoses Tremor R25.1 Atrial fibrillation status post cardioversion I48.91 Dementia F03.90 Sleep apnea G47.30 Chronic diastolic CHF (congestive heart failure) I50.32 Hypokalemia E87.6
== END 2022-06-10 17:14 ==
LOC: ED 12:11 → 2N 12:11 → SUATTDRO 16:59 → 2N 19:41

== ENCOUNTER 2022-09-03 11:26 | Observation (INO) ==
[2022-09-03] MEDS ORDERED: ALBUTEROL 0.083% NEBU SOLN 3 ML VIAL NEB STA (11:55)
[2022-09-03 12:25] LABS: Basophils # (auto) 0.03 K/uL (0-0.2); Basophils % (auto) 0.2 %; Hematocrit (blood only) 35.5 % (37.0-47.0); Hemoglobin 12.4 g/dl (12.0-16.0); Immature Granulocytes # (auto) 0.05 K/uL (0.01-0.20); Immature Granulocytes % (auto) 0.4 %; Lymphocytes # (auto) 1.69 K/uL (1.2-3.4); Lymphocytes % (auto) 12.7 %; Mean Corpuscular Hemoglobin 32.2 pg (25.0-34.0); Mean Corpuscular Hgb Conc 34.9 g/dL (32.0-36.0); Mean Corpuscular Volume 92.2 fL (80.0-100.0); Mean Platelet Volume 10.7 fL (9.4-12.4); Monocytes # (auto) 1.32 K/uL (0.11-0.59); Monocytes % (auto) 9.9 %; Neutrophils # (auto) 10.25 K/uL (1.40-6.50); Neutrophils % (auto) 76.8 %; Platelet Count 242 K/uL (130-400); RDW Coefficient of Variation 14.6 % (11.5-14.5); RDW Standard Deviation 49.3 fL (36.4-46.3); Red Blood Count 3.85 M/uL (4.20-5.40); White Blood Count 13.34 K/ul (4.8-10.8)
--- NOTE | 2022-09-03 12:28 | XRay Report ---
XR chest 2V PA/lateral HISTORY: 77 years-old Female cough, SOB acute cough with shortness of breath COMPARISON: 08/31/2022 TECHNIQUE: AP an lateral views of the chest. FINDINGS: Loop recorder device. Biopsy clip projects over the left lung base. Partially imaged left humeral YOVANY F hardware. No pneumothorax, pleural effusion, airspace consolidation or pulmonary edema. Degenerativ e changes of the shoulders and spine. Cholecystectomy. IMPRESSION: No acute process. ACT 112: Negative or not required by law. The above report was generated using voice recognition software. It may contain grammatical, syntax o r spelling errors. Electronically signed by: Antony Miller M.D. 09/03/2022 12:27 PM
[2022-09-03 12:41] LABS: Alanine Aminotransferase 15 U/L (7-52); Albumin Globulin Ratio 1.1 (0.9-2); Alkaline Phosphatase 91 U/L (34-104); Anion Gap 10 (3-11); Aspartate Aminotransferase 22 U/L (13-39); BUN Creatinine Ratio 19.6 (10-20); Bilirubin,Total 0.5 mg/dl (0.2-1.0); Blood Urea Nitrogen 21 mg/dl (6-23); Calcium 9.8 mg/dl (8.6-10.3); Carbon Dioxide 34 mmol/L (21-32); Chloride 97 mmol/L (98-107); Globulin 3.8 gm/dl (2.5-4.0); Glucose 95 mg/dl (70-99(Fasting)); Sodium 141 mmol/L (136-145); Total Protein 7.8 gm/dl (6.0-8.3)
--- NOTE | 2022-09-03 12:47 | Emergency Department Note ---
History of Present Illness General Chief complaint: Illness Stated complaint: VIRUS SYMPTONS, THROAT SWELLING Time Seen by Provider: 09/03/22 11:36 History of Present Illness Maximum Pain Intensity: 5 This 77-year-old female presents today with her daughter, for evaluation of a persisting cough, weakness, and some shortness of breath. Symptoms started about a week ago. She was seen at her PCP office on Monday had a mild cough at that time. It has become significantly worse yesterday and today. She is now coughing with any attempt at speaking. She feels short of breath at times because she is coughing so much. She denies any fevers but has had significant chills. Her daughter notes that the patient had significant swelling in her lower extremities on Monday. This has improved significantly. The patient has had persisting clear nasal drainage for over 2 weeks. No head congestion. She is able to swallow her secretions, but has had some difficulty with food and liquids due to her sore throat. Her daughter noticed that the anterior lymph nodes appear significantly swollen. The patient denies any nausea, vomiting, diarrhea, abdominal pain, or chest discomfort. No other treatment. Home Medications Medication Instructions Recorded Confirmed Type docusate sodium 100 mg capsule 200 mg PO BID 04/15/18 09/05/22 History calcium carbonate 600 mg calcium 1,200 mg PO QAM 06/08/19 09/05/22 History (1,500 mg) tablet (Calcium) cholecalciferol (vitamin D3) 25 1,000 unit PO QAM 06/08/19 09/05/22 History mcg (1,000 unit) capsule (Vitamin D3) nitroglycerin 0.4 mg sublingual 0.4 mg sublingual Q5M PRN chest 09/25/21 09/05/22 Rx tablet (Nitrostat) pain #20 tabs rosuvastatin 40 mg tablet (Crestor) 40 mg PO HS #90 tabs 02/21/22 09/05/22 Rx amiodarone 200 mg tablet 100 mg PO HS #30 tabs 03/04/22 09/05/22 Rx apixaban 5 mg tablet (Eliquis) 5 mg PO BID #180 tabs 04/29/22 09/05/22 Rx acetaminophen 325 mg tablet 650 mg PO Q4H PRN pain #60 tabs 05/30/22 09/05/22 Rx buspirone 5 mg tablet 5 mg PO BID #90 tabs 06/13/22 09/05/22 Rx memantine 10 mg tablet (Namenda) 10 mg PO BID #180 tabs 07/11/22 09/05/22 Rx bumetanide 2 mg tablet 2 mg PO BID #60 tabs 07/18/22 09/05/22 Rx estradiol 0.075 mg/24 hr weekly 0.075 mg transdermal WK 07/28/22 09/05/22 History transdermal patch pantoprazole 40 mg tablet,delayed 40 mg PO DAILYBB 07/28/22 09/05/22 History release mirtazapine 30 mg tablet 30 mg PO HS #30 tabs 08/31/22 09/05/22 Rx methylprednisolone 4 mg tablets in 4 mg PO .COMPLEX #21 ea 09/01/22 09/05/22 Rx a dose pack (Medrol (Vaugnh)) ascorbic acid (vitamin C) 500 mg 500 mg PO DAILY 09/03/22 09/05/22 History tablet (Vitamin C) cyanocobalamin (vitamin B-12) 500 500 mcg PO QAM 09/03/22 09/05/22 History mcg tablet (Vitamin B-12) amoxicillin 875 mg-potassium 1 tab PO BID #18 tabs 09/04/22 09/05/22 Rx clavulanate 125 mg tablet fluticasone propionate 50 2 spray NA DAILY #16 grams 09/04/22 09/05/22 Rx mcg/actuation nasal spray,suspension potassium chloride 20 mEq 20 meq PO TID #90 tabs 09/04/22 09/05/22 Rx tablet,extended release sodium chloride 0.65 % nasal spray 1 spray NA TID #44 mL 09/04/22 09/05/22 Rx aerosol (Saline Mist) Allergies Allergy/AdvReac Type Severity Reaction Status Date / Time gluten Allergy Intermediate Celiac Verified 09/03/22 12:32 disease latex Allergy Mild Rash Verified 09/03/22 12:32 amoxicillin AdvReac Intermediate Yeast Verified 09/03/22 12:32 infection cefdinir AdvReac Intermediate nausea Verified 09/03/22 12:32 Cephalosporins AdvReac Intermediate Yeast Verified 09/03/22 12:32 infection clavulanic acid AdvReac Intermediate Yeast Verified 09/03/22 12:32 infection prednisone AdvReac Intermediate Anxiety Verified 09/03/22 12:32 Past Med/Surg History Medical History Acute blood loss anemia (ABLA) Acute hyponatremia Anemia RECEIVED 2 UNITS [facility] 04/2021 RECENT ADMISSION Atypical chest pain CAD (coronary artery disease) Medically managed by cardiology NSTEMI 07/27/20- cath demonstrated small branch vessel disease involving small OM to, not amenable to intervention. CD (celiac disease) "Does not" follow gluten-free diet Chest pressure Chronic diastolic congestive heart failure Constipation Degenerative disc disease Diastolic CHF Diverticulitis 2013 Dyslipidemia GI bleed reason for Endoscopy History of paroxysmal supraventricular tachycardia with atrial tachycardia Hypercholesterolemia Hypertension Hypokalemia Low back pain with sciatica Nausea & vomiting Non-ST elevation HI (NSTEMI) 07/27/20 Obstructive sleep apnea Ocular migraine Open wound of buttock Paroxysmal atrial fibrillation Sleep apnea CPAP Syncope and collapse Tremor Vertigo Surgical History History of arthroscopy of right shoulder RCR History of cardiac cath 2015, 07/28/20 ([place]) > no stents History of cardioversion x2, most recent 04/2019 History of carpal tunnel release R/L History of cataract surgery R/L History of cholecystectomy History of colonoscopy History of esophagogastroduodenoscopy (EGD) History of foot surgery R/L feet "to straighten toes" History of fracture of left shoulder Plate + screws History of hysterectomy JOANNA + BSO History of incision and drainage Right foot History of tonsillectomy History of total knee replacement Left x2, right x1 S/P transesophageal echocardiogram (JOHANA) Status post placement of implantable loop recorder Implanted 12/2019 - Follows Dr. Yoo > to see Dr. Powers this afternoon for check Family History Mother Family hx of colon cancer Colorectal cancer Brother Prostate cancer Family history of diabetes mellitus Father Dissecting aortic aneurysm Myocardial infarction Grandmother (Maternal) Stroke Other No family history of adverse response to anesthesia Denies family history of Ovarian cancer Breast cancer Social History Smoking Status: Never smoker Tobacco Type: Cigarettes Age Started Using Tobacco: 19; Age Quit Using Tobacco: 27; packs per day: 0.25; Second Hand Exposure: No; Do You Dip or Chew Tobacco: No; Hx Alcohol Use: No Hx Substance Use: No Preferred Language: Bulgarian Communication Ability: Effective Visual Impairment: No Limitations Hearing Ability: Normal 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 Beliefs That Will Affect Care: None marital status: Current Living Situation: Spouse Current Living Situation Comment: home with 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; 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[employer]; 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 Feels Safe at Home: Yes Childhood Exposure to Second-Hand Smoke: No Dental Care, Regularly: Yes Physical Activity Frequency: 3-4 Times per Week Seatbelt Use: always Sunscreen Use: Yes Assistive Devices: Walker Review of Systems A total of 10 systems reviewed and were otherwise negative Physical Exam Vital Signs Vital Signs - 24 hr 09/03/22 11:28 09/03/22 12:11 Temperature 36.6 C Temperature Source Temporal Artery Scan Pulse Rate 64 Respiratory Rate 16 Blood Pressure 122/59 L Blood Pressure Mean 80 Pulse Oximetry 97 Oxygen Delivery Method Room Air Sepsis Recent Fever Within 48 Hours No Sepsis New/Unexplained Change in Mental Status No Sepsis Action Taken by Nursing No Action Required General: Frail, elderly white female, in no acute distress. Obvious discomfort. Sitting on the bed. Alert and oriented. Coughing constantly. Skin: Warm and dry with fair turgor. No rashes or lesions. No ecchymosis or erythema. She does have peripheral edema in her lower extremities. Her da ughter states that the swelling was worse yesterday. No open wounds. HEENT: Normocephalic atraumatic. Eyes PERRLA, EOMI. bilateral conjunctiva and scleral injection. Ears TMs intact bilaterally with good light reflexes. No erythema or bulging. No hemotympanum. Canals are patent with minor cerumen. Nares have copious clear nasal drainage bilaterally. No epistaxis. Oropharynx with erythema and considerable postnasal drip. No exudate. Uvula midline, oral mucosa moist. No lesions present. Lymphatics are palpated with anterior chain enlargement and tenderness. No posterior chain enlargement or tenderness. Heart: Heart RRR. Systolic ejection murmur is noted. No GR. peripheral pulses are 2+. Lungs: Lungs are clear to auscultation. No crackles rhonchi or wheezing. Fair air movement. The patient is able to take a deep breath but this does cause her to cough significantly. Abdomen: Abdomen was inspected, auscultated, and palpated. Obese. Bowel sounds present x 4. Soft, nontender to palpation. No hepato-splenomegaly. No masses noted. No rebound. Musculoskeletal: Gross motor function of the upper and lower extremities is intact and unremarkable. Course Administered Medications Discontinued Medications Acetaminophen (Acetaminophen 325 Mg Tab) 650 mg PO Q4H PRN PRN Reason: Pain(1,2,3) Or Fever Stop: 10/03/22 17:03 Last Admin: 09/03/22 23:48 Dose: 650 mg Documented By: TMD Albuterol (Albuterol 0.083% Nebu Soln 3 Ml Vial) 2.5 mg NEB NOW STA; Protocol Stop: 09/03/22 11:56 Last Admin: 09/03/22 12:24 Dose: 2.5 mg Documented By: NABIL Amiodarone HCl (Amiodarone 200 Mg Tab) 100 mg PO HS [facility] Stop: 10/03/22 20:59 Last Admin: 09/03/22 19:58 Dose: 100 mg Documented By: TMD Apixaban (Apixaban 5 Mg Tablet) 5 mg PO BID MERLIN Stop: 10/03/22 20:59 Last Admin: 09/04/22 08:06 Dose: 5 mg Documented By: Admin: 09/03/22 19:58 Dose: 5 mg Documented By: TMD Buspirone HCl (Buspirone 5 Mg Tab) 5 mg PO BID MERLIN Stop: 10/03/22 20:59 Last Admin: 09/04/22 08:06 Dose: 5 mg Documented By: Admin: 09/03/22 19:59 Dose: 5 mg Documented By: TMD Docusate Sodium (Docusate Sodium 100 Mg Cap) 200 mg PO BID MERLNI Stop: 10/03/22 20:59 Last Admin: 09/04/22 08:05 Dose: 200 mg Documented By: Admin: 09/03/22 19:59 Dose: 200 mg Documented By: TMD Fluticasone Propionate (Fluticasone Propionate Na Spr 16 Gm Btl) 2 sprays NA DAILY MERLIN Stop: 10/03/22 17:14 Last Admin: 09/04/22 08:06 Dose: 2 sprays Documented By: Admin: 09/03/22 18:27 Dose: 2 sprays Documented By: FLAVIA Guaifenesin/Codeine Phosphate (Guaifenesin/Codeine 100mg/10mg 5ml Udc) 10 ml PO NOW STA Stop: 09/03/22 14:31 Last Admin: 09/03/22 14:42 Dose: 10 ml Documented By: LOREN Guaifenesin/Codeine Phosphate (Guaifenesin/Codeine 100mg/10mg 5ml Udc) 5 ml PO Q6H MERLIN Stop: 10/03/22 19:59 Last Admin: 09/04/22 13:52 Dose: 5 ml Documented By: Admin: 09/04/22 08:18 Dose: 5 ml Documented By: Admin: 09/04/22 01:11 Dose: 5 ml Documented By: Admin: 09/03/22 19:57 Dose: 5 ml Documented By: MATT Potassium Chloride (K Rocky / Wtr) 10 meq in 100 mls @ 100 mls/hr IV Q1H MERLIN Stop: 09/03/22 16:29 Last Infusion: 09/03/22 19:37 Dose: 0 mls/hr Documented By: Infusion: 09/03/22 18:09 Dose: 0 mls/hr Documented By: Admin: 09/03/22 17:25 Dose: 100 mls/hr Documented By: Infusion: 09/03/22 16:05 Dose: 0 mls/hr Documented By: Admin: 09/03/22 15:04 Dose: 100 mls/hr Documented By: LOREN Lactated Ringer's (Lr) 1,000 mls @ 999 mls/hr IV .Q1H1M ONE Stop: 09/03/22 15:48 Last Infusion: 09/03/22 16:06 Dose: 0 mls/hr Documented By: Admin: 09/03/22 15:01 Dose: 999 mls/hr Documented By: LOREN Ampicillin Sodium/Sulbactam Sodium 3,000 mg/ Sodium Chloride 108 mls @ 200 mls/hr IV NOW STA; Protocol Stop: 09/03/22 15:20 Last Infusion: 09/03/22 16:03 Dose: 0 mls/hr Documented By: Admin: 09/03/22 15:30 Dose: 200 mls/hr Documented By: ARS Ampicillin Sodium/Sulbactam Sodium 3,000 mg/ Sodium Chloride 108 mls @ 200 mls/hr IV Q6H MERLIN; Protocol Stop: 09/13/22 20:59 Last Infusion: 09/04/22 14:27 Dose: 0 mls/hr Documented By: Admin: 09/04/22 13:57 Dose: 200 mls/hr Documented By: Infusion: 09/04/22 08:57 Dose: 0 mls/hr Documented By: Admin: 09/04/22 08:08 Dose: 200 mls/hr Documented By: Infusion: 09/04/22 04:56 Dose: 0 mls/hr Documented By: Admin: 09/04/22 03:59 Dose: 200 mls/hr Documented By: Infusion: 09/03/22 21:12 Dose: 0 mls/hr Documented By: Admin: 09/03/22 20:05 Dose: 200 mls/hr Documented By: TMD Potassium Chloride (K Rocky / Wtr) 10 meq in 100 mls @ 100 mls/hr IV Q1H MERLIN Stop: 09/04/22 11:59 Last Infusion: 09/04/22 12:58 Dose: 0 mls/hr Documented By: Admin: 09/04/22 11:59 Dose: 100 mls/hr Documented By: Infusion: 09/04/22 11:59 Dose: 0 mls/hr Documented By: Admin: 09/04/22 10:48 Dose: 100 mls/hr Documented By: Infusion: 09/04/22 10:47 Dose: 0 mls/hr Documented By: Admin: 09/04/22 09:53 Dose: 100 mls/hr Documented By: Infusion: 09/04/22 09:49 Dose: 100 mls/hr Documented By: MTRadha Admin: 09/04/22 08:49 Dose: 100 mls/hr Documented By: FLAVIA Memantine (Memantine Hcl 10 Mg Tab) 10 mg PO BID MERLIN Stop: 10/03/22 20:59 Last Admin: 09/04/22 08:05 Dose: 10 mg Documented By: Admin: 06/03/23 20:00 Dose: 10 mg Documented By: MATT Menthol (Cough Drop (Sugar Free) Dean 24 Dean/1 Box) 1 dean BUCCAL NOW STA Stop: 09/03/22 15:25 Last Admin: 09/03/22 17:15 Dose: Not Given Documented By: FLAVIA Menthol (Cough Drop (Sugar Free) Dean 24 Dean/1 Box) 1 dean BUCCAL Q2H PRN PRN Reason: Sore Throat or cough Stop: 10/03/22 17:03 Last Admin: 09/03/22 17:25 Dose: 1 dean Documented By: FLAVIA Mirtazapine (Mirtazapine Tab 15 Mg Tab) 30 mg PO HS MERLIN Stop: 10/03/22 20:59 Last Admin: 09/03/22 20:00 Dose: 30 mg Documented By: MATT Potassium Chloride (Potassium Chloride 20 Meq/15 Ml Udc) 20 meq PO NOW STA Stop: 09/04/22 13:25 Last Admin: 09/04/22 13:52 Dose: 20 meq Documented By: FLAVIA Rosuvastatin Calcium (Rosuvastatin Calcium 20 Mg Tab) 40 mg PO [facility] Stop: 10/03/22 20:59 Last Admin: 09/03/22 20:01 Dose: 40 mg Documented By: MATT Sodium Chloride (Sodium Chloride 0.65% Na Soln 45 Ml ([place])) 1 sprays NA TID MERLIN Stop: 10/03/22 20:59 Last Admin: 09/04/22 13:52 Dose: 1 sprays Documented By: Admin: 09/04/22 08:06 Dose: 1 sprays Documented By: Admin: 09/03/22 20:01 Dose: 1 sprays Documented By: MATT Medical Decision Making Differential Diagnosis Sinusitis, viral upper respiratory illness, seasonal allergies, strep pharyngitis, mononucleosis, fungal infection Medical Records Attestation: I reviewed the patient's medical records. Home Medications Current Medication List: was personally reviewed by me Laboratory Data CBC obtained today shows an elevated white count of 13.3. H&H of 12.4 and 35.5. Elevated neutrophils. Chemistry panel shows sodium 141, potassium 3.0, chloride 97. BUN of 21 and creatinine 1.07. LFTs are unremarkable. High sensitive troponin was normal and magnesium was also normal. Nasal swab was negative for COVID, influenza a and B, and RSV. 06/03/23 12:03 09/03/22 12:03 Lab Results 09/03/22 09/03/22 09/03/22 Range/Units 12:03 12:03 12:21 WBC 13.34 H (4.8-10.8) K/ul RBC 3.85 L (4.20-5.40) M/uL Hgb 12.4 (12.0-16.0) g/dl Hct 35.5 L (37.0-47.0) % MCV 92.2 (80.0-100.0) fL MCH 32.2 (25.0-34.0) pg MCHC 34.9 (32.0-36.0) g/dL RDW Std Deviation 49.3 H (36.4-46.3) fL RDW Coeff of Malinda 14.6 H (11.5-14.5) % Plt Count 242 (130-400) K/uL MPV 10.7 (9.4-12.4) fL Immature Gran % (Auto) 0.4 % Neut % (Auto) 76.8 % Lymph % (Auto) 12.7 % Cataño % (Auto) 9.9 % Eos % (Auto) 0.0 % Baso % (Auto) 0.2 % Neut # (Auto) 10.25 H (1.40-6.50) K/uL Lymph # (Auto) 1.69 (1.2-3.4) K/uL Cataño # (Auto) 1.32 H (0.11-0.59) K/uL Eos # (Auto) 0.00 (0-0.50) K/uL Baso # (Auto) 0.03 (0-0.2) K/uL Immature Gran # (Auto) 0.05 (0.01-0.20) K/uL Sodium 141 (136-145) mmol/L Potassium 3.0 L (3.5-5.1) mmol/L Chloride 97 L (98-107) mmol/L Carbon Dioxide 34 H (21-32) mmol/L Anion Gap 10 (3-11) BUN 21 (6-23) mg/dl Creatinine 1.07 (0.6-1.2) mg/dl Est Cr Clr Drug Dosing Not Reportable Est GFR ( Amer) 58.0 ml/min Est GFR (Non-Af Amer) 50.0 ml/min BUN/Creatinine Ratio 19.6 (10-20) Glucose 95 (70-99(Fasting)) mg/dl Calcium 9.8 (8.6-10.3) mg/dl Magnesium 1.9 (1.7-2.4) mg/dl Total Bilirubin 0.5 (0.2-1.0) mg/dl AST 22 (13-39) U/L ALT 15 (7-52) U/L Alkaline Phosphatase 91 (34-104) U/L Troponin I High Sens 7.8 (0-14) pg/ml Total Protein 7.8 (6.0-8.3) gm/dl Albumin 4.0 (3.4-5.0) gm/dl Globulin 3.8 (2.5-4.0) gm/dl Albumin/Globulin Ratio 1.1 (0.9-2) SARS-CoV-2 (PCR) NEGATIVE (Negative) Influenza Type A (PCR) Negative (Neg) Influenza Type B (PCR) Negative (Neg) RSV (RT-PCR) Negative (Neg) Imaging Data My Impression: Chest x-ray obtained today was interpreted by me and read by radiology. There is no acute process. No pneumothorax or pulmonary edema. No evidence of consolidation to suggest infection. Radiologist's Impression: Chest X-Ray 09/03/22 11:53 XR chest 2V PA/lateral HISTORY: 77 years-old Female cough, SOB acute cough with shortness of breath COMPARISON: 08/31/2022 TECHNIQUE: AP an lateral views of the chest. FINDINGS: Loop recorder device. Biopsy clip projects over the left lung base. Partially imaged left humeral ORIF hardware. No pneumothorax, pleural effusion, airspace consolidation or pulmonary edema. Degenerative changes of the shoulders and spine. Cholecystectomy. IMPRESSION: No acute process. ACT 112: Negative or not required by law. The above report was generated using voice recognition software. It may contain grammatical, syntax or spelling errors. Electronically signed by: Antony Miller M.D. 09/03/2022 12:27 PM Blood Pressure Blood Pressure Findings: Low blood pressure MDM Narrative The patient was evaluated in room B3. Conservative care measures were discussed. IV was established. Labs were obtained. She was placed on a monitor technician and remained in a sinus rhythm with a rate in the 60s. Oxygen s aturations also remained adequate. She continued to have frequent coughing. Chest x-ray obtained today shows no evidence of pneumonia or consolidation. Nasal swab was negative for COVID, RSV, and influenza a/B. The patient was given an albuterol nebulizer treatment while in the department. Coughing and discomfort did not improve. The patient is clearly miserable. She is unable to have a meaningful conversation secondary to the coughing. Given her age, I think her respiratory reserves and stamina are of limited capacity. I am worried that she may decompensate due to fatigue with the frequent coughing episodes. Because of this, option for observation was discussed with the patient and her daughter. They are in agreement. [facility] Hospitalist service was consulted. Please see their dictation for final management. The patient remained stable while in the ED. This patient was seen in conjunction with Dr. Aguirre, who also evaluated the patient and concurred with today's diagnosis and treatment plan. Impression & Plan Chronic cough, Hoarseness of voice Admission. Albuterol nebulizer treatment. She may benefit from cough syrup and/or throat lozenges to improve her symptoms. She will also benefit from oxygen therapy. Discharge Plan Visit Data Chief Complaint: Illness Stated Complaint: VIRUS SYMPTONS, THROAT SWELLING ED Provider: Rhett Aguirre ED Midlevel Provider: Yaron Baumann. Discharge Problem: Chronic cough, Hoarseness of voice Patient Disposition: Admitted As Inpatient Condition: Fair Discharge Instructions Interventions: ED Discharge Assessment Last Done: 09/03/22 16:21
[2022-09-03 12:49] LABS: Troponin I High Sensitivity 7.8 pg/ml (0-14)
[2022-09-03 13:18] LABS: Influenza A virus by PCR Negative (Neg); Influenza B virus by PCR Negative (Neg); RSV by PCR Negative (Neg); SARS CoV2 RNA(COVID-19) Ceph NEGATIVE (Negative)
[2022-09-03 13:35] LABS: Magnesium 1.9 mg/dl (1.7-2.4)
--- NOTE | 2022-09-03 14:16 | Emergency Department Note ---
ED Visit Note I have personally evaluated this patient examined her and reviewed the pertinent labs and data. I have discussed the case with Yaron Baumann, the physician group fitness assistant department head and agree with the plan. Please refer to the PA note. This patient comes in after feeling sick for several days. She has had cough nasal congestion sore throat. On my exam she looks ill-appearing she has some coarseness. She is coughing frequently. She appears in no significant respiratory distress. Despite her work-up being unremarkable so far she looks very miserable . She has also had a cough episode or 2 of chest pain and does have a cardiac history. Her EKG was unremarkable so far and her troponin is unremarkable. I do think she needs to be admitted/observed and we will consult the [facility] hospitalist team to see her in the ER. .
--- NOTE | 2022-09-03 14:23 | History & Physical Report ---
Date of Service September 03, 2022 Assessment & Plan (1) Bacterial sinusitis: Plan: -Admit to med tele on cont pulse oximetry -Currently stable -Multiple weeks of sinus congestion and pressure, no with tenderness and yellow- green drainage, leukocytosis of 11 -Will start her on Unasyn for now until she is able to consistently eat and drink -Will give 1L LR boluses now as she appears dehydrated -Monitor intake and output -Will start scheduled saline nasal spray Flonase -Tylenol prn for pain/fever -BL SCD's and home eliauis for DVT PPX -AM CBC, CMP, mag, PT/INR (2) Cough: Plan: -Patient significant cough whenever she tries to speak -Very hoarse voice today, able to swallow secretions but has been having significant pain with difficulty swallowing food and water -The majority of her cough is likely due to post-nasal drip from her sinusitis as her lungs are clear and chest xray is negative -No significant erythema in the oropharynx, anterior cervical lymph nodes are significantly swollen today -Negative for group A strep on 08/30 -Will obtain STAT CT of the neck wo con to rule out any airway compromise -Will hold steroids for now until CT results are back -Will give a dose of codeine/guaifenesin now then q6h scheduled -PRN cough drops ordered -Incentive spirometry, fluter therapy -Will get full respiratory biofire for further evaluation (3) Hoarseness of voice: Plan: -Patient with significantly hoarse voice today -No stridor noted on exam, patient currently able to swallow her secretions -Most likely due to laryngitis/post-nasal drip but will obtain CT of the neck wo con for further evaluation (4) Hypokalemia: Plan: -Noted to be 3.0 today -Likely due to poor oral intake and not taking potassium at home with her sore throat -Will give 10 meq IV x 2 doses in the ED, follow potassium level later this afternoon and replete as needed -Will hold PO potassium for now with her dysphagia -Continue to monitor on tele (5) Generalized weakness: Plan: -Likely due to her acute illness -PT/OT consults placed (6) Afib: Plan: -HR currently controlled -Continue amiodarone and Eliquis (7) Chronic diastolic CHF (congestive heart failure): Plan: -Appears dehydrated today -Will hold bumetanide for now (8) Dementia: Plan: -Continue memantine and mirtazapine Plan The patient was discussed with Dr. Coffey at the time of the admission History of Present Illness Chief Complaint: Cough, SOB Primary Care Provider: Sravan Figueroa MD Ximena is a 76 year-old female with a PMH of hypertension, HFpEF, hyperlipidemia, coronary artery disease, paroxysmal atrial fibrillation on Eliquis and dementiawho presented to the [facility] ED on 09/03/22 with complaints on progressive SOB, cough, and throat pain. In the ED vitals were stable. Labs were significant for a leukocytosis of 13 with left shift of 10, potassium of 3.0, and covid19/influena/RSV negative. Chest xray was without acute findings. The patient was seen by her PCP on Monday for similar symptoms and was prescribed a medrol dose pack, she was only able to pick it up yesterday and had one dose so far. Prior to admission the patient was given an albuterol treatment. At the time of the exam the patient was sitting in bed and appears ill but non-toxic. History was obtained from the patient and her daughter sitting bedside. The patient developed a sore throat on Monday which continued to progre ss into Monday. She has since developed a cough, hoarse voice, painful swallowing with food and water, and increased sinus pressure and drainage. Her sinus drainage is yellow-green. He daughter states that the patient had a fever last night but was unable to tell me the reading. The patient has had very poor intake over the past week due to her throat discomfort. She has noticed some chest discomfort when coughing only, she is unable to point to her pain. When asked, the patient's daughter states that the patient has been having sinus drainage and congest for a 2-3 weeks prior to her other symptoms starting. The patient does not feel as though the albuterol treat she received earlier relieved her symptoms. She has not had a bowel movement in several days as she has not been eating/drinking well. She denies recent nausea/vomiting, dysuria, hematuria, LE swelling and recent trauma. She would not want CPR or defibrillation in the event of cardiac arrest. She would want a trial of intubat ion in the event of respiratory arrest. Please refer to Dr. Coffey's attestation for any changes to the treatment plan Allergies Allergy/AdvReac Type Severity Reaction Status Date / Time gluten Allergy Intermediate Celiac Verified 09/03/22 12:32 disease latex Allergy Mild Rash Verified 09/03/22 12:32 amoxicillin AdvReac Intermediate Yeast Verified 09/03/22 12:32 infection cefdinir AdvReac Intermediate nausea Verified 09/03/22 12:32 Cephalosporins AdvReac Intermediate Yeast Verified 09/03/22 12:32 infection clavulanic acid AdvReac Intermediate Yeast Verified 09/03/22 12:32 infection prednisone AdvReac Intermediate Anxiety Verified 09/03/22 12:32 Home Medications Medication Instructions Recorded Confirmed Type docusate sodium 100 mg capsule 200 mg PO BID 04/15/18 09/03/22 History calcium carbonate 600 mg calcium 1,200 mg PO QAM 06/08/19 09/03/22 History (1,500 mg) tablet (Calcium) cholecalciferol (vitamin D3) 25 1,000 unit PO QAM 06/08/19 09/03/22 History mcg (1,000 unit) capsule (Vitamin D3) nitroglycerin 0.4 mg sublingual 0.4 mg sublingual Q5M PRN chest 09/25/21 09/03/22 Rx tablet (Nitrostat) pain #20 tabs rosuvastatin 40 mg tablet (Crestor) 40 mg PO HS #90 tabs 02/21/22 09/03/22 Rx amiodarone 200 mg tablet 100 mg PO HS #30 tabs 03/04/22 09/03/22 Rx apixaban 5 mg tablet (Eliquis) 5 mg PO BID #180 tabs 04/29/22 09/03/22 Rx acetaminophen 325 mg tablet 650 mg PO Q4H PRN pain #60 tabs 05/30/22 09/03/22 Rx buspirone 5 mg tablet 5 mg PO BID #90 tabs 06/13/22 09/03/22 Rx memantine 10 mg tablet (Namenda) 10 mg PO BID #180 tabs 07/11/22 09/03/22 Rx bumetanide 2 mg tablet 2 mg PO BID #60 tabs 07/18/22 09/03/22 Rx estradiol 0.075 mg/24 hr weekly 0.075 mg transdermal WK 07/28/22 09/03/22 History transdermal patch pantoprazole 40 mg tablet,delayed 40 mg PO DAILYBB 07/28/22 09/03/22 History release mirtazapine 30 mg tablet 30 mg PO HS #30 tabs 08/31/22 09/03/22 Rx methylprednisolone 4 mg tablets in 4 mg PO .COMPLEX #21 ea 09/01/22 09/03/22 Rx a dose pack (Medrol (Vaughn)) potassium chloride 20 mEq 20 meq PO BID #60 tabs 09/01/22 09/03/22 Rx tablet,extended release ascorbic acid (vitamin C) 500 mg 500 mg PO DAILY 09/03/22 09/03/22 History tablet (Vitamin C) cyanocobalamin (vitamin B-12) 500 500 mcg PO QAM 09/03/22 09/03/22 History mcg tablet (Vitamin B-12) Past Med/Surg History Medical History (Updated 09/03/22 @ 15:53 by Cirilo Sosa PA-C) Acute blood loss anemia (ABLA) Acute hyponatremia Anemia RECEIVED 2 UNITS [facility] 04/2021 RECENT ADMISSION Atypical chest pain CAD (coronary artery disease) Medically managed by cardiology NSTEMI 07/27/20- cath demonstrated small branch vessel disease involving small OM to, not amenable to intervention. CD (celiac disease) "Does not" follow gluten-free diet Chest pressure Chronic diastolic congestive heart failure Constipation Degenerative disc disease Diastolic CHF Diverticulitis 2013 Dyslipidemia GI bleed reason for Endoscopy History of paroxysmal supraventricular tachycardia with atrial tachycardia Hypercholesterolemia Hypertension Hypokalemia Low back pain with sciatica Nausea & vomiting Non-ST elevation AR (NSTEMI) 07/27/20 Obstructive sleep apnea Ocular migraine Open wound of buttock Paroxysmal atrial fibrillation Sleep apnea CPAP Syncope and collapse Tremor Vertigo Surgical History History of arthroscopy of right shoulder RCR History of cardiac cath 2016, 07/28/20 ([place]) > no stents History of cardioversion x2, most recent 04/2019 History of carpal tunnel release R/L History of cataract surgery R/L History of cholecystectomy History of colonoscopy History of esophagogastroduodenoscopy (EGD) History of foot surgery R/L feet "to straighten toes" History of fracture of left shoulder Plate + screws History of hysterectomy JOANNA + BSO History of incision and drainage Right foot History of tonsillectomy History of total knee replacement Left x2, right x1 S/P transesophageal echocardiogram (JOHANA) Status post placement of implantable loop recorder Implanted 12/2019 - Follows Dr. Yoo > to see Dr. Powers this afternoon for check Family History Mother Family hx of colon cancer Colorectal cancer Brother Prostate cancer Family history of diabetes mellitus Father Dissecting aortic aneurysm Myocardial infarction Grandmother (Maternal) Stroke Other No family history of adverse response to anesthesia Denies family history of Ovarian cancer Breast cancer Social History Smoking Status: Never smoker Tobacco Type: Cigarettes Age Started Using Tobacco: 19; Age Quit Using Tobacco: 27; packs per day: 0.25; Second Hand Exposure: No; Do You Dip or Chew Tobacco: No; Hx Alcohol Use: No Hx Substance Use: No Preferred Language: Maori Communication Ability: Effective Visual Impairment: No Limitations Hearing Ability: Normal Bog Cutter Required: No Beliefs That Will Affect Care: None marital status: Current Living Situation: Spouse Current Living Situation Comment: home with current occupational status: retired Other Information That Helps Us Care for You: 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; 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[employer]; 3 children Feels Safe at Home: Yes Safety Concerns: Feels Safe At This Time Childhood Exposure to Second-Hand Smoke: No Dental Care, Regularly: Yes Physical Activity Frequency: 3-4 Times per Week Seatbelt Use: always Sunscreen Use: Yes Assistive Devices: None Physical Exam Physical Exam: Physical Exam: General: In mild distress due to illness, voice is hoarse but without stridor, stated age, malnourished and ill but non-toxic appearing HEENT: Normocephalic, atraumatic, no scleral icterus, pupils around round, symmetrical, and reactive to light, tenderness to palpation over the frontal and maxillary sinuses, moist mucus membranes, no significant erythema in the pharynx but significant post nasal drip is noted, no significant swelling or lesions on the tonsils, no swelling of the tongue, swollen anterior cervical lymph nodes noted with tenderness, trachea midline, no thyromegaly Chest/Pulm: No respiratory distress, symmetrical chest expansion, clear breath sounds throughout Cardiac: RRR, no murmurs noted Abdomen: Negative for ascites and bruising, normoactive bowel sounds, soft, non-tender to palpation throughout Musculoskeletal: Symmetrical and without signs of acute trauma, upper and lower extremities with full ROM, no atrophy, spasticity, or flaccidity Extremities: Radial, dorsalis pedis, and posterior tibial pulses are intact and symmetrical, no edema noted in the BL LE's Skin: Warm, dry, no rashes , lesions, or scars noted Neuro: Alert and oriented to person, place, month, year, and president, no focal defects, CN II-XII tested and intact, no tremors noted Psych: Mild distress but polite and cooperative during the exam Results & Data Results & Data Vital Signs (Past 12 Hours) Vital Signs Temp Pulse Pulse Resp BP BP Pulse Ox 09/03/22 13:20 72 09/03/22 13:16 72 20 114/44 L 100 09/03/22 12:11 16 09/03/22 11:28 36.6 C 64 122/59 L 97 O2 Del Method 09/03/22 13:20 09/03/22 13:16 09/03/22 12:11 09/03/22 11:28 Room Air Laboratory Results Abnormal lab results 09/03/22 09/03/22 Range/Units 12:03 12:03 WBC 13.34 H (4.8-10.8) K/ul RBC 3.85 L (4.20-5.40) M/uL Hct 35.5 L (37.0-47.0) % RDW Std Deviation 49.3 H (36.4-46.3) fL RDW Coeff of Malinda 14.6 H (11.5-14.5) % Neut # (Auto) 10.25 H (1.40-6.50) K/uL Stephens # (Auto) 1.32 H (0.11-0.59) K/uL Potassium 3.0 L (3.5-5.1) mmol/L Chloride 97 L (98-107) mmol/L Carbon Dioxide 34 H (21-32) mmol/L Diagnostic Findings Chest X-Ray 09/03/22 11:53 XR chest 2V PA/lateral HISTORY: 77 years-old Female cough, SOB acute cough with shortness of breath COMPARISON: 08/31/2022 TECHNIQUE: AP an lateral views of the chest. FINDINGS: Loop recorder device. Biopsy clip projects over the left lung base. Partially imaged left humeral ORIF hardware. No pneumothorax, pleural effusion, airspace consolidation or pulmonary edema. Degenerative changes of the shoulders and spine. Cholecystectomy. IMPRESSION: No acute process. ACT 112: Negative or not required by law. The above report was generated using voice recognition software. It may contain grammatical, syntax or spelling errors. Electronically signed by: Antony Miller M.D. 09/03/2022 12:27 PM ECG Additional Comments: Sinus bradycardia with Premature atrial complexes with Aberrant conduction Possible Left atrial enlargement Nonspecific ST abnormality Abnormal ECG When compared with ECG of 28-JUL-2022 14:43, Aberrant conduction is now Present Code Status & VTE Plan Code Status Conditional; no CPR or defibrillation; would want trial of intubation if in respiratory failure VTE Prophylaxis Plan VTE Prophylaxis will be ordered: Yes Supervising Physician Co-Signing Physician Notes I personally saw and examined the patient. I verified all cramer points and agree with Cirilo Sosa PA-C with the following exceptions and/or additions: 77 year old female presents to the ER with worsening cough and shortness of breath. Sinus pain for the last month in maxillary sinuses b/l. No know GERD or acid taste in her mouth O/E A&Ox3, frequent dry coughing, pharyngeal erythema but no thrush noted, respiratory accessory muscle use, no stridor, Chest CTAB, Abdo SNT, no pitting pedal edema A/P Acute bacterial sinusitis - Unasyn (difficulty swallowing at this time therefore using IV antibiotics). Saline and steroid nasal sprays. If not improving consider steroid course. Acute bronchitis - supportive care with codeine cough syrup, SLT assessment to assess for silent aspirations Acute pharyngitis - suspect due to post nasal drip, acute epiglottitis ruled out on CT PG Care Time/CCT Total # of Minutes Spent Total Time Spent with Patient: Total time spent is greater than 50% in coordination of care (as documented) at patient's floor/unit and/or counseling patient: Coding [place] [address] INT INP/OBS CARE 3/75MIN Patient Type Established Medical Decision Making High Complexity Diagnoses Bacterial sinusitis J32.9; B96.89 Cough R05.9 Hoarseness of voice R49.0 Hypokalemia E87.6 Generalized weakness R53.1 Afib I48.91 Atrial fibrillation type: unspecified Chronic diastolic CHF (congestive heart failure) I50.32 Dementia F03.90 (6) Afib Atrial fibrillation type: unspecified Qualified Code(s): I48.91 - Unspecified atrial fibrillation
[2022-09-03] MEDS ORDERED: guaiFENesin/CODEINE 100MG/10MG 5ML UDC PO STA (14:30)
[2022-09-03] MEDS ORDERED: AMPICILLIN/SULBACTAM SOD 3,000 MG in 0.9 % SODIUM CHLORIDE 100 ML IV STA (14:48)
[2022-09-03] MEDS ORDERED: LACTATED RINGER'S 1,000 ML IV ONE (14:48)
[2022-09-03] MEDS: POTASSIUM CHLORIDE / WTR 10 MEQ/100 ML PLCT IV SCH ×2 (15:04→17:25)
[2022-09-03] MEDS ORDERED: COUGH DROP (SUGAR FREE) LOZ 24 LOZ/1 BOX BUCCAL STA (15:24)
--- NOTE | 2022-09-03 15:57 | Electrocardiogram Report ---
Test Reason : Blood Pressure : / mmHG Vent. Rate : 059 BPM Atrial Rate : 059 BPM P-R Int : 152 ms QRS Dur : 090 ms QT Int : 464 ms P-R-T Axes : 069 031 013 degrees QTc Int : 459 ms Sinus bradycardia with Premature atrial complexes with Aberrant conduction Possible Left atrial enlargement Nonspecific ST abnormality Abnormal ECG When compared with ECG of 28-JUL-2022 14:43, Aberrant conduction is now Present Confirmed by Gus Powers ([id number]) on 09/03/2022 3:56:58 PM Referred By: REFERRED SELF Confirmed By:Leon Powers
--- NOTE | 2022-09-03 16:16 | CT Scan Report ---
CT soft tissue neck wo con HISTORY: 77 years-old Female throat pain, hoarse, monitor for airway compromise acute dysphagia with throat pain and cough COMPARISON: CTA neck 06/09/2022 TECHNIQUE: Multiple axial CT images of the soft tissues of the neck were obtained without the use of IV contrast. A dose lowering technique was used consistent with the principals of ALA. FINDINGS: Subcentimeter hypodense thyroid nodules. Delusional changes of the brain parenchyma. No acute intracr anial abnormality identified. Prior bilateral lens repair. Streak artifact from dental amalgam hardwa re. No lymphadenopathy or significant inflammatory changes. Patent airway. The parapharyngeal fat theodore cheri are symmetric and well-maintained. Unremarkable glottis and epiglottis. Lung apices appear clear. No pneumothorax. Degenerative changes of the cervical spine. Trace right an d small left mastoid effusions. Moderate mucosal thickening of the ethmoid air cells and inferior fro ntal sinuses. Rightward bowing and spurring of the nasal septum. Degenerative changes of the cervical spine. IMPRESSION: 1. Limited exam without the use of IV contrast. No acute abnormality. 2. No significant inflammatory changes or lymphadenopathy. ACT 112: Negative or not required by law. The above report was generated using voice recognition software. It may contain grammatical, syntax o r spelling errors. Electronically signed by: Antony Miller M.D. 09/03/2022 4:14 PM
[2022-09-03] MEDS ORDERED: COUGH DROP (SUGAR FREE) LOZ 24 LOZ/1 BOX BUCCAL PRN (17:04)
[2022-09-03] MEDS ORDERED: ACETAMINOPHEN 325 MG TAB PO PRN (17:04)
[2022-09-03] MEDS ORDERED: Patient's HEIGHT &/or WEIGHT Needed SCH (17:15)
[2022-09-03 17:32] LABS: Adenovirus PCR Not Detected (NotDetected); Bordetella parapertussis PCR Not Detected (NotDetected); Bordetella pertussis PCR Not Detected (NotDetected); Chlamydia pneumoniae PCR Not Detected (NotDetected); Coronavirus 229E PCR Not Detected (NotDetected); Coronavirus CoV-2 (COVID19)PCR Not Detected (NotDetected); Coronavirus HKU1 PCR Not Detected (NotDetected); Coronavirus NL63 PCR Not Detected (NotDetected); Coronavirus OC43PCR Not Detected (NotDetected); Human Metapneumovirus PCR Not Detected (NotDetected); Influenza A PCR Not Detected (NotDetected); Influenza B PCR Not Detected (NotDetected); Mycoplasma pneumoniae PCR Not Detected (NotDetected); Parainfluenza Virus 1 PCR Not Detected (NotDetected); Parainfluenza Virus 2 PCR Not Detected (NotDetected); Parainfluenza Virus 3 PCR Not Detected (NotDetected); Parainfluenza Virus 4 PCR Not Detected (NotDetected); Respiratory Syncytial VirusPCR Not Detected (NotDetected); Rhinovirus/Enterovirus PCR Not Detected (NotDetected)
[2022-09-03] MEDS: FLUTICASONE PROPIONATE NA SPR 16 GM BTL SCH (18:27)
[2022-09-03] MEDS: guaiFENesin/CODEINE 100MG/10MG 5ML UDC PO SCH (19:57)
[2022-09-03] MEDS: APIXABAN 5 MG TABLET PO SCH (19:58)
[2022-09-03] MEDS: busPIRone 5 MG TAB PO SCH (19:59)
[2022-09-03] MEDS: DOCUSATE SODIUM 100 MG CAP PO SCH (19:59)
[2022-09-03] MEDS: MEMANTINE HCL 10 MG TAB PO SCH (20:00)
[2022-09-03] MEDS: SODIUM CHLORIDE 0.65% NA SOLN 45 ML (OCEAN) SCH (20:01)
[2022-09-03] MEDS: AMPICILLIN/SULBACTAM SOD 3,000 MG in 0.9 % SODIUM CHLORIDE 100 ML IV SCH (20:05)
[2022-09-03] MEDS ORDERED: ROSUVASTATIN CALCIUM 20 MG TAB PO SCH (21:00)
[2022-09-03] MEDS ORDERED: AMIODARONE 200 MG TAB PO SCH (21:00)
[2022-09-03] MEDS ORDERED: MIRTAZAPINE TAB 15 MG TAB PO SCH (21:00)
[2022-09-04] MEDS: guaiFENesin/CODEINE 100MG/10MG 5ML UDC PO SCH ×3 (01:11→13:52)
[2022-09-04] MEDS: AMPICILLIN/SULBACTAM SOD 3,000 MG in 0.9 % SODIUM CHLORIDE 100 ML IV SCH ×3 (03:59→13:57)
[2022-09-04 06:08] LABS: Basophils # (auto) 0.06 K/uL (0-0.2); Basophils % (auto) 0.5 %; Eosinophils # (auto) 0.04 K/uL (0-0.50); Eosinophils % (auto) 0.3 %; Hematocrit (blood only) 31.2 % (37.0-47.0); Hemoglobin 10.7 g/dl (12.0-16.0); Immature Granulocytes # (auto) 0.04 K/uL (0.01-0.20); Immature Granulocytes % (auto) 0.3 %; Lymphocytes # (auto) 2.38 K/uL (1.2-3.4); Lymphocytes % (auto) 20.7 %; Mean Corpuscular Hemoglobin 32.2 pg (25.0-34.0); Mean Corpuscular Hgb Conc 34.3 g/dL (32.0-36.0); Mean Platelet Volume 10.9 fL (9.4-12.4); Monocytes # (auto) 1.26 K/uL (0.11-0.59); Neutrophils # (auto) 7.72 K/uL (1.40-6.50); Neutrophils % (auto) 67.2 %; Platelet Count 221 K/uL (130-400); RDW Coefficient of Variation 15.4 % (11.5-14.5); RDW Standard Deviation 53.3 fL (36.4-46.3); Red Blood Count 3.32 M/uL (4.20-5.40)
[2022-09-04 06:24] LABS: Albumin Globulin Ratio 1.1 (0.9-2); Albumin Level 3.3 gm/dl (3.4-5.0); BUN Creatinine Ratio 17.6 (10-20); Bilirubin,Total 0.6 mg/dl (0.2-1.0); Calcium 8.7 mg/dl (8.6-10.3); Creatinine Clr Calc Pharmacy 46.6 ml/min; Est GFR (African American) 61.4 ml/min; Globulin 2.9 gm/dl (2.5-4.0); Potassium 2.9 mmol/L (3.5-5.1); Total Protein 6.2 gm/dl (6.0-8.3)
[2022-09-04 06:27] LABS: INR 1.2 (0.9-1.1); Prothrombin Time 13.3 Seconds (9.0-12.0)
[2022-09-04] MEDS: DOCUSATE SODIUM 100 MG CAP PO SCH (08:05)
[2022-09-04] MEDS: MEMANTINE HCL 10 MG TAB PO SCH (08:05)
[2022-09-04] MEDS: SODIUM CHLORIDE 0.65% NA SOLN 45 ML (OCEAN) SCH ×2 (08:06→13:52)
[2022-09-04] MEDS: APIXABAN 5 MG TABLET PO SCH (08:06)
[2022-09-04] MEDS: busPIRone 5 MG TAB PO SCH (08:06)
[2022-09-04] MEDS: FLUTICASONE PROPIONATE NA SPR 16 GM BTL SCH (08:06)
[2022-09-04] MEDS: POTASSIUM CHLORIDE / WTR 10 MEQ/100 ML PLCT IV SCH ×4 (08:49→11:59)
[2022-09-04] MEDS ORDERED: POTASSIUM CHLORIDE 20 MEQ/15 ML UDC PO STA (13:24)
--- NOTE | 2022-09-04 14:28 | Discharge Summary ---
Discharge Summary Date of Service September 04, 2022 Admission HPI Per Admitting Provider Ximena is a 76 year-old female with a PMH of hypertension, HFpEF, hyperlipidemia, coronary artery disease, paroxysmal atrial fibrillation on Eliquis and dementiawho presented to the [facility] ED on 09/03/22 with complaints on progressive SOB, cough, and throat pain. In the ED vitals were stable. Labs were significant for a leukocytosis of 13 with left shift of 10, potassium of 3.0, and covid19/influena/RSV negative. Chest xray was without acute findings. The patient was seen by her PCP on Monday for similar symptoms and was prescribed a medrol dose pack, she was only able to pick it up yesterday and had one dose so far. Prior to admission the patient was given an albuterol treatment. At the time of the exam the patient was sitting in bed and appears ill but non-toxic. History was obtained from the patient and her daughter sitting bedside. The patient developed a sore throat on Monday which continued to progress into Monday. She has since developed a cough, hoarse voice, painful swallowing with food and water, and increased sinus pressure and drainage. Her sinus drainage is yellow-green. He daughter states that the patient had a fever last night but was unable to tell me the reading. The patient has had very poor intake over the past week due to her throat discomfort. She has noticed some chest discomfort when coughing only, she is unable to point to her pain. When asked, the patient's daughter states that the patient has been having sinus drainage and congest for a 2-3 weeks prior to her other symptoms starting. The patient does not feel as though the albuterol treat she received earlier relieved her symptoms. She has not had a bowel movement in several days as she has not been eating/drinking well. She denies recent nausea/vomiting, dysuria, hematuria, LE swelling and recent trauma. She would not want CPR or defibrillation in the event of cardiac arrest. She would want a trial of intubation in the event of respiratory arrest. Please refer to Dr. Coffey's attestation for any changes to the treatment plan Principal Dx & Hospital Course #1 = Principal Diagnosis (1) Bacterial sinusitis: -Admit to med tele on cont pulse oximetry -Currently stable -Multiple weeks of sinus congestion and pressure, no with tenderness and yellow- green drainage, leukocytosis of 11 -Will start her on Unasyn for now until she is able to consistently eat and drink -Will give 1L LR boluses now as she appears dehydrated -Monitor intake and output -Will start scheduled saline nasal spray Flonase -Tylenol prn for pain/fever -BL SCD's and home eliauis for DVT PPX -AM CBC, CMP, mag, PT/INR (2) Cough: -Patient significant cough whenever she tries to speak -Very hoarse voice today, able to swallow secretions but has been having significant pain with difficulty swallowing food and water -The majority of her cough is likely due to post-nasal drip from her sinusitis as her lungs are clear and chest xray is negative -No significant erythema in the oropharynx, anterior cervical lymph nodes are significantly swollen today -Negative for group A strep on 08/30 -Will obtain STAT CT of the neck wo con to rule out any airway compromise -Will hold steroids for now until CT results are back -Will give a dose of codeine/guaifenesin now then q6h scheduled -PRN cough drops ordered -Incentive spirometry, fluter therapy -Will get full respiratory biofire for further evaluation (3) Hoarseness of voice: -Patient with significantly hoarse voice today -No stridor noted on exam, patient currently able to swallow her secretions -Most likely due to laryngitis/post-nasal drip but will obtain CT of the neck wo con for further evaluation (4) Hypokalemia: -Noted to be 3.0 today -Likely due to poor oral intake and not taking potassium at home with her sore throat -Will give 10 meq IV x 2 doses in the ED, follow potassium level later this afternoon and replete as needed -Will hold PO potassium for now with her dysphagia -Continue to monitor on tele (5) Generalized weakness: -Likely due to her acute illness -PT/OT consults placed (6) Afib: -HR currently controlled -Continue amiodarone and Eliquis (7) Chronic diastolic CHF (congestive heart failure): -Appears dehydrated today -Will hold bumetanide for now (8) Dementia: -Continue memantine and mirtazapine Plan The patient was discussed with Dr. Coffey at the time of the admission Updated Medication List Medication Instructions Recorded Confirmed Type docusate sodium 100 mg capsule 200 mg PO BID 04/15/18 09/03/22 History calcium carbonate 600 mg calcium 1,200 mg PO QAM 06/08/19 09/03/22 History (1,500 mg) tablet (Calcium) cholecalciferol (vitamin D3) 25 1,000 unit PO QAM 06/08/19 09/03/22 History mcg (1,000 unit) capsule (Vitamin D3) nitroglycerin 0.4 mg sublingual 0.4 mg sublingual Q5M PRN chest 09/25/21 09/03/22 Rx tablet (Nitrostat) pain #20 tabs rosuvastatin 40 mg tablet (Crestor) 40 mg PO HS #90 tabs 02/21/22 09/03/22 Rx amiodarone 200 mg tablet 100 mg PO HS #30 tabs 03/04/22 09/03/22 Rx apixaban 5 mg tablet (Eliquis) 5 mg PO BID #180 tabs 04/29/22 09/03/22 Rx acetaminophen 325 mg tablet 650 mg PO Q4H PRN pain #60 tabs 05/30/22 09/03/22 Rx buspirone 5 mg tablet 5 mg PO BID #90 tabs 06/13/22 09/03/22 Rx memantine 10 mg tablet (Namenda) 10 mg PO BID #180 tabs 07/11/22 09/03/22 Rx bumetanide 2 mg tablet 2 mg PO BID #60 tabs 07/18/22 09/03/22 Rx estradiol 0.075 mg/24 hr weekly 0.075 mg transdermal WK 07/28/22 09/03/22 History transdermal patch pantoprazole 40 mg tablet,delayed 40 mg PO DAILYBB 07/28/22 09/03/22 History release mirtazapine 30 mg tablet 30 mg PO HS #30 tabs 08/31/22 09/03/22 Rx methylprednisolone 4 mg tablets in 4 mg PO .COMPLEX #21 ea 09/01/22 09/03/22 Rx a dose pack (Medrol (Vaughn)) ascorbic acid (vitamin C) 500 mg 500 mg PO DAILY 09/03/22 09/03/22 History tablet (Vitamin C) cyanocobalamin (vitamin B-12) 500 500 mcg PO QAM 09/03/22 09/03/22 History mcg tablet (Vitamin B-12) amoxicillin 875 mg-potassium 1 tab PO BID #18 tabs 09/04/22 Rx clavulanate 125 mg tablet fluticasone propionate 50 2 spray NA DAILY #16 grams 09/04/22 Rx mcg/actuation nasal spray,suspension potassium chloride 20 mEq 20 meq PO TID #90 tabs 09/04/22 Rx tablet,extended release sodium chloride 0.65 % nasal spray 1 spray NA TID #44 mL 09/04/22 Rx aerosol (Saline Mist) Hospital Stay Data Consultations 09/03/22 14:30 ED Decision to Admit Stat Diagnostic Imagining Performed 09/03/22 14:49 CT neck soft tissues [CT soft tissue neck wo con] Stat Pending Results Patient Have Any Pending Studies at Discharge: No Discharge Instructions Given to Patient (Per Discharging Provider) You were admitted with a sinus infection and should finish out 9 more days of an antibiotic called Augmentin. Please increase your potassium pills to three times a day and have your blood work checked next week to recheck your potassium levels. Coding Diagnoses Bacterial sinusitis J32.9; B96.89 Cough R05.9 Hoarseness of voice R49.0 Hypokalemia E87.6 Generalized weakness R53.1 Afib I48.91 Atrial fibrillation type: unspecified Chronic diastolic CHF (congestive heart failure) I50.32 Dementia F03.90
== END 2022-09-04 16:20 | disposition home health service (06) | DRG 153 ==
LOC: ED 11:26 → 2N 14:47 → INTOOBSV 14:47 → SUATTDRO 14:47 → 2N 16:21

== ENCOUNTER 2022-10-03 12:14 | Inpatient (IN) ==
--- NOTE | 2022-10-03 13:07 | XRay Report ---
XR chest 1V not portable CLINICAL HISTORY: Chest pain, nonspecific TECHNIQUE: Single frontal radiograph of the chest was obtained. Comparison: Comparison is made to chest radiograph 09/27/2022 FINDINGS: No lines and tubes are seen. The cardiomediastinal silhouette is normal. The lungs are clear. No evid ence of pleural effusion or pneumothorax. IMPRESSION: No acute chest disease. ACT 112: Negative or not required by law. Electronically signed by: Andrey Carrasco M.D. 10/03/2022 1:05 PM
[2022-10-03 13:51] LABS: Basophils # (auto) 0.05 K/uL (0-0.2); Eosinophils # (auto) 0.07 K/uL (0-0.50); Eosinophils % (auto) 1.4 %; Hematocrit (blood only) 37.4 % (37.0-47.0); Hemoglobin 12.8 g/dl (12.0-16.0); Immature Granulocytes # (auto) 0.01 K/uL (0.01-0.20); Immature Granulocytes % (auto) 0.2 %; Lymphocytes # (auto) 2.52 K/uL (1.2-3.4); Lymphocytes % (auto) 49.4 %; Mean Corpuscular Hemoglobin 32.2 pg (25.0-34.0); Mean Corpuscular Hgb Conc 34.2 g/dL (32.0-36.0); Mean Corpuscular Volume 94.2 fL (80.0-100.0); Mean Platelet Volume 10.6 fL (9.4-12.4); Monocytes # (auto) 0.41 K/uL (0.11-0.59); Neutrophils # (auto) 2.04 K/uL (1.40-6.50); Platelet Count 246 K/uL (130-400); RDW Coefficient of Variation 15.2 % (11.5-14.5); RDW Standard Deviation 52.7 fL (36.4-46.3); Red Blood Count 3.97 M/uL (4.20-5.40)
[2022-10-03 14:06] LABS: Albumin Globulin Ratio 1.3 (0.9-2); Albumin Level 4.3 gm/dl (3.4-5.0); BUN Creatinine Ratio 16.1 (10-20); Bilirubin,Total 0.4 mg/dl (0.2-1.0); Calcium 9.2 mg/dl (8.6-10.3); Creatinine Clr Calc Pharmacy 52.7 ml/min; Est GFR (African American) 74.5 ml/min; Est GFR (Non-African American) 64.3 ml/min; Globulin 3.4 gm/dl (2.5-4.0); Potassium 3.1 mmol/L (3.5-5.1); Total Protein 7.7 gm/dl (6.0-8.3)
[2022-10-03 14:13] LABS: Troponin I High Sensitivity 6.1 pg/ml (0-14)
[2022-10-03 14:19] LABS: INR 1.1 (0.9-1.1); Partial Thromboplastin Ratio 1.1; Partial Thromboplastin Time 30.4 Seconds (21.0-31.0); Prothrombin Time 12.1 Seconds (9.0-12.0)
[2022-10-03 14:23] LABS: Influenza A virus by PCR Negative (Neg); Influenza B virus by PCR Negative (Neg); RSV by PCR Negative (Neg); SARS CoV2 RNA(COVID-19) Ceph NEGATIVE (Negative)
[2022-10-03] MEDS ORDERED: POTASSIUM CHLORIDE CRTAB 20 MEQ TABCR PO STA (15:59)
[2022-10-03] MEDS ORDERED: POTASSIUM CHLORIDE / WTR 10 MEQ/100 ML PLCT IV ONE (16:07)
[2022-10-03 16:28] LABS: Magnesium 1.9 mg/dl (1.7-2.4)
--- NOTE | 2022-10-03 16:36 | CT Scan Report ---
CT head/brain wo con CLINICAL HISTORY: confusion Technique: Contiguous axial CT images of the head were acquired from the base of the skull to the michael devin without intravenous contrast administration. Images were viewed in brain, subdural and bone [facility]. Automated dose lowering techniques and/or adjustment according to patient size were utilized for this exam. Comparison: Comparison is made to CTA head 06/09/2022 and MRI brain 05/30/[address] head 08/29/2019 Findings: Areas of decreased attenuation are present in the periventricular and subcortical white matter bilate rally consistent with small vessel ischemic disease. Generalized cerebral atrophy with commensurate e nlargement of the ventricles, sulci, and cisterns is also present, asymmetric enlargement of the righ t temporal horn is unchanged from prior exam.. There is no acute intracranial hemorrhage or evidence of acute territorial infarction. No shift of the midline structures, mass effect, or extra-axial abno rmalities are shown. Atherosclerotic calcifications are present in the intracranial segments of the internal carotid arteries. Imaged portions of the paranasal sinuses and mastoid air cells are clear. The orbits appear normal. A few lucent foci most prominently in the left calvarium is unchanged from prior exams. These are no nspecific but may represent venous lakes. These are stable from 2020. Impression: No acute intracranial hemorrhage, no evidence of acute territorial infarction or other acute intracra nial disease process. ACT 112: Negative or not required by law. Electronically signed by: Andrey Carrasco M.D. 10/03/2022 4:34 PM
[2022-10-03 16:40] LABS: Base Excess VBG 10.7 mEq/L; HCO3 VBG 37 mmol/L; Oxygen Saturation VBG < 60.0 %; PCO2 VBG 56 mmHg (38-50); PO2 VBG 26 mmHg; pH VBG 7.43 (7.36-7.41)
--- NOTE | 2022-10-03 16:54 | Emergency Department Note ---
Impression & Plan Weakness, Hypokalemia ED Provider Note Provider: Skip Aguayo MD DATE OF SERVICE: 10/03/2022 CHIEF COMPLAINT: Shortness of breath, dizziness, weakness, lethargy HISTORY OF PRESENT ILLNESS: Patient is a 77-year-old female past medical history of A-fib and CHF on Eliquis & Bumex presenting here today with daughter due to ongoing issues with weakness and increased lethargy. Patient seen here last week and started increased Bumex for some fluid overload. Seen in the heart failure clinic. Has been on increased Bumex for several days with some potassium supplementation. Daughter reports yesterday was having some dizziness and shortness of breath and then today had similar episode when coming back from the bathroom. Weight has been trending down. Less swelling in the legs reported by daughter. Patient is reporting over the past month or so she has had some headaches. Denies focal numbness or weakness but more general lethargy. Reports some episodes of chest tightness but denies current pain. Daughter is very concerned as the patient seems more lethargic. Has had issues with low potassium in the past. Has had a bit of a shuffling gait but no new significant trauma or falls reported. PAST MEDICAL HISTORY: As noted above MEDICATIONS: Reviewed home medications at bedside with patient and daughter. SOCIAL HISTORY: Former smoker PHYSICAL EXAM: GENERAL: alert and oriented in no acute distress on stretcher Head: normocephalic and atraumatic EYES: No injection, discharge or icterus. PERRL, EOMI. NECK: Trachea midline. Supple. ENT: Mucous membranes pink and moist. LUNGS: Airway patent. No retractions. Breath sounds clear without significant crackles HEART: Regular rate and rhythm. No chest wall tenderness ABDOMEN: Soft and non-tender, without guarding or rebound. SKIN: Acyanotic, warm, dry, without rashes EXTREMITIES: Without swelling, tenderness or deformity NEUROLOGICAL: No focal deficits. No aphasia. No facial droop or slurred speech. Ambulatory. EK bpm sinus bradycardia. No PVC or PAC. No acute ST segment elevation or depression with a QTc of 415. CONTINUOUS CARDIAC MONITORING: was ordered and showed a heart rate of 40s-50s bpm in sinus bradycardia Patient's laboratory studies and imaging reviewed. Differential includes Infection, dehydration, metabolic abnormality, hypo/hyperglycemia, electrolyte disturbance, anemia, hypoxia, cardiac sources, intracerebral event/neurologic, as well as other pathologies. IMPRESSION/MEDICAL DECISION MAKING: Blood obtained here today without significant anemia or leukocytosis. VBG obtai gina without severe acidosis or hypercarbia. Mild hypokalemia noted without other significant renal dysfunction. BNP somewhat elevated but improving compared with blood work from Monday. Chest x-ray without significant fluid overload and weight and leg edema appears to be improving. Negative COVID flu and RSV testing. TSH within normal limits. Daughter states has had Lyme testing before that is improved. Renal function at baseline even with the increased Bumex. Given some oral and IV potassium supplementation. Magnesium normal at 1.9. CT of the head given the headache reports of the increased lethargy without reported acute intracranial bleed by radiology. Do not see focal neurological deficits at this time to explain such as CVA. Daughter is highly concerned about fall risk and the patient not acting herself. UA pending but not having urinary symptoms. Again receiving IV and oral potassium supplementation. Daughter does not feel she can provide enough support at home given the patient's weakness and fatigue and fall risk and the patient was agreeable for further observation. Hospitalist contacted. DIAGNOSIS: Weakness, hypokalemia DISPOSITION: Hospitalist will evaluate Patient was agreeable with this plan. Past Med/Surg History Medical History (Updated 10/03/22 @ 18:36 by JO ANN Chavez) Acute blood loss anemia (ABLA) Acute hyponatremia Anemia RECEIVED 2 UNITS [facility] 04/2021 RECENT ADMISSION Atypical chest pain CAD (coronary artery disease) Medically managed by cardiology NSTEMI 07/27/20- cath demonstrated small branch vessel disease involving small OM to, not amenable to intervention. CD (celiac disease) "Does not" follow gluten-free diet Chest pressure Chronic diastolic congestive heart failure Constipation Degenerative disc disease Diastolic CHF Diverticulitis 2013 Dyslipidemia GI bleed reason for Endoscopy History of paroxysmal supraventricular tachycardia with atrial tachycardia Hypercholesterolemia Hypertension Hypokalemia Low back pain with sciatica Nausea & vomiting Non-ST elevation [place] (NSTEMI) 07/27/20 Obstructive sleep apnea Ocular migraine Open wound of buttock Paroxysmal atrial fibrillation Sleep apnea CPAP Syncope and collapse Tremor Vertigo Surgical History History of arthroscopy of right shoulder RCR History of cardiac cath 2015, 07/28/20 ([place]) > no stents History of cardioversion x2, most recent 04/2019 History of carpal tunnel release R/L History of cataract surgery R/L History of cholecystectomy History of colonoscopy History of esophagogastroduodenoscopy (EGD) History of foot surgery R/L feet "to straighten toes" History of fracture of left shoulder Plate + screws History of hysterectomy JOANNA + BSO History of incision and drainage Right foot History of tonsillectomy History of total knee replacement Left x2, right x1 S/P transesophageal echocardiogram (JOHANA) Status post placement of implantable loop recorder Implanted 12/2019 - Follows Dr. Yoo > to see Dr. Powers this afternoon for check Family History Mother Family hx of colon cancer Colorectal cancer Brother Prostate cancer Family history of diabetes mellitus Father Dissecting aortic aneurysm Myocardial infarction Grandmother (Maternal) Stroke Other No family history of adverse response to anesthesia Denies family history of Ovarian cancer Breast cancer Social History Smoking Status: Former smoker Tobacco Type: Cigarettes Age Started Using Tobacco: 19; Age Quit Using Tobacco: 27; packs per day: 0.25; Second Hand Exposure: No; Do You Dip or Chew Tobacco: No; Hx Alcohol Use: No Hx Substance Use: No Preferred Language: Macedonian Communication Ability: Effective Visual Impairment: No Limitations Hearing Ability: Normal Wool Carder Required: No Beliefs That Will Affect Care: None marital status: Current Living Situation: Spouse Current Living Situation Comment: home with 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; 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[employer]; 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 Feels Safe at Home: Yes Childhood Exposure to Second-Hand Smoke: No Dental Care, Regularly: Yes Physical Activity Frequency: 3-4 Times per Week Seatbelt Use: always Sunscreen Use: Yes Assistive Devices: Walker Allergies Allergies Allergy/AdvReac Type Severity Reaction Status Date / Time gluten Allergy Intermediate Celiac Verified 10/03/22 17:23 disease latex Allergy Mild Rash Verified 10/03/22 17:23 amoxicillin AdvReac Intermediate Yeast Verified 10/03/22 17:23 infection cefdinir AdvReac Intermediate nausea Verified 10/03/22 17:23 Cephalosporins AdvReac Intermediate Yeast Verified 10/03/22 17:23 infection clavulanic acid AdvReac Intermediate Yeast Verified 10/03/22 17:23 infection prednisone AdvReac Intermediate Anxiety Verified 10/03/22 17:23 Home Meds Home Medications Medication Instructions Recorded Confirmed docusate sodium 100 mg capsule 200 mg PO BID 04/15/18 10/03/22 calcium carbonate 600 mg calcium 1,200 mg PO QAM 06/08/19 10/03/22 (1,500 mg) tablet (Calcium) cholecalciferol (vitamin D3) 25 1,000 unit PO QAM 06/08/19 10/03/22 mcg (1,000 unit) capsule (Vitamin D3) estradiol 0.075 mg/24 hr weekly 0.075 mg transdermal WK 07/28/22 10/03/22 transdermal patch pantoprazole 40 mg tablet,delayed 40 mg PO DAILYBB 07/28/22 10/03/22 release ascorbic acid (vitamin C) 500 mg 500 mg PO DAILY 09/03/22 10/03/22 tablet (Vitamin C) cyanocobalamin (vitamin B-12) 500 500 mcg PO QAM 09/03/22 10/03/22 mcg tablet (Vitamin B-12) bumetanide 2 mg tablet 2 mg PO DAILY 09/27/22 10/03/22 mirtazapine 30 mg tablet 60 mg PO HS 09/27/22 10/03/22 potassium chloride 20 mEq 20 meq PO BID 09/27/22 10/03/22 tablet,extended release Previous Rx's Medication Instructions Recorded nitroglycerin 0.4 mg sublingual 0.4 mg sublingual Q5M PRN chest 09/25/21 tablet (Nitrostat) pain #20 tabs rosuvastatin 40 mg tablet (Crestor) 40 mg PO HS #90 tabs 02/21/22 amiodarone 200 mg tablet 100 mg PO HS #30 tabs 03/04/22 apixaban 5 mg tablet (Eliquis) 5 mg PO BID #180 tabs 04/29/22 acetaminophen 325 mg tablet 650 mg PO Q4H PRN pain #60 tabs 05/30/22 buspirone 5 mg tablet 5 mg PO BID #90 tabs 06/13/22 memantine 10 mg tablet (Namenda) 10 mg PO BID #180 tabs 07/11/22 fluticasone propionate 50 2 spray NA DAILY #16 grams 09/04/22 mcg/actuation nasal spray,suspension sodium chloride 0.65 % nasal spray 1 spray NA TID #44 mL 09/04/22 aerosol (Saline Mist) Results & Data (ED) Vital Signs Vital Signs - 24 hr 10/03/22 12:26 10/03/22 16:04 10/03/22 16:05 Temperature 36.7 C Temperature Source Temporal Artery Scan Pulse Rate 58 L Pulse Rate [Apical] 48 L Pulse Rhythm Regular Pulse Strength Normal Respiratory Rate 22 17 Respiratory Effort / Characteristics Non-Labored Spontaneous Non-Labored Respiratory Depth Normal Normal Respiratory Pattern Regular Blood Pressure 128/69 Blood Pressure [Left Arm] Blood Pressure Mean 88 Blood Pressure Mean [Left Arm] Blood Pressure Position Sitting Pulse Oximetry 99 Oxygen Delivery Method Room Air Room Air Sepsis Recent Fever Within 48 Hours No Sepsis New/Unexplained Change in Mental Status No Sepsis Action Taken by Nursing No Action Required 10/03/22 16:05 10/03/22 15:25 10/03/22 18:06 Temperature Temperature Source Pulse Rate 46 L Pulse Rate [Apical] 54 L Pulse Rhythm Pulse Strength Respiratory Rate 20 Respiratory Effort / Characteristics Respiratory Depth Respiratory Pattern Blood Pressure Blood Pressure [Left Arm] 138/66 Blood Pressure Mean Blood Pressure Mean [Left Arm] 90 Blood Pressure Position Pulse Oximetry 97 Oxygen Delivery Method Room Air Room Air Sepsis Recent Fever Within 48 Hours Sepsis New/Unexplained Change in Mental Status Sepsis Action Taken by Nursing Laboratory Data 10/03/22 13:25 10/03/22 13:25 Lab Results 10/03/22 10/03/22 10/03/22 Range/Units 13:25 13:25 13:25 WBC 5.10 (4.8-10.8) K/ul RBC 3.97 L (4.20-5.40) M/uL Hgb 12.8 (12.0-16.0) g/dl Hct 37.4 (37.0-47.0) % MCV 94.2 (80.0-100.0) fL MCH 32.2 (25.0-34.0) pg MCHC 34.2 (32.0-36.0) g/dL RDW Std Deviation 52.7 H (36.4-46.3) fL RDW Coeff of Malinda 15.2 H (11.5-14.5) % Plt Count 246 (130-400) K/uL MPV 10.6 (9.4-12.4) fL Immature Gran % (Auto) 0.2 % Neut % (Auto) 40.0 % Lymph % (Auto) 49.4 % [place] % (Auto) 8.0 % Eos % (Auto) 1.4 % Baso % (Auto) 1.0 % Neut # (Auto) 2.04 (1.40-6.50) K/uL Lymph # (Auto) 2.52 (1.2-3.4) K/uL [place] # (Auto) 0.41 (0.11-0.59) K/uL Eos # (Auto) 0.07 (0-0.50) K/uL Baso # (Auto) 0.05 (0-0.2) K/uL Immature Gran # (Auto) 0.01 (0.01-0.20) K/uL PT 12.1 H (9.0-12.0) Seconds INR 1.1 (0.9-1.1) APTT 30.4 (21.0-31.0) Seconds PTT Ratio 1.1 VBG pH (7.36-7.41) VBG pCO2 (38-50) mmHg VBG pO2 mmHg VBG HCO3 mmol/L VBG O2 Saturation % VBG Base Excess mEq/L Sodium 141 (136-145) mmol/L Potassium 3.1 L (3.5-5.1) mmol/L Chloride 100 (98-107) mmol/L Carbon Dioxide 35 H (21-32) mmol/L Anion Gap 6 (3-11) BUN 14 (6-23) mg/dl Creatinine 0.87 (0.6-1.2) mg/dl Est Cr Clr Drug Dosing 52.7 ml/min Est GFR ( Amer) 74.5 ml/min Est GFR (Non-Af Amer) 64.3 ml/min BUN/Creatinine Ratio 16.1 (10-20) Glucose 78 (70-99(Fasting)) mg/dl Calcium 9.2 (8.6-10.3) mg/dl Magnesium 1.9 (1.7-2.4) mg/dl Total Bilirubin 0.4 (0.2-1.0) mg/dl AST 24 (13-39) U/L ALT 13 (7-52) U/L Alkaline Phosphatase 94 (34-104) U/L Ammonia (18-72) umol/L Troponin I High Sens 6.1 (0-14) pg/ml B-Natriuretic Peptide (0-100) pg/ml Total Protein 7.7 (6.0-8.3) gm/dl Albumin 4.3 (3.4-5.0) gm/dl Globulin 3.4 (2.5-4.0) gm/dl Albumin/Globulin Ratio 1.3 (0.9-2) TSH (0.300-4.500) uIu/ml SARS-CoV-2 (PCR) (Negative) Influenza Type A (PCR) (Neg) Influenza Type B (PCR) (Neg) RSV (RT-PCR) (Neg) 10/03/22 10/03/22 10/03/22 Range/Units 13:25 13:25 13:25 WBC (4.8-10.8) K/ul RBC (4.20-5.40) M/uL Hgb (12.0-16.0) g/dl Hct (37.0-47.0) % MCV (80.0-100.0) fL MCH (25.0-34.0) pg MCHC (32.0-36.0) g/dL RDW Std Deviation (36.4-46.3) fL RDW Coeff of Malinda (11.5-14.5) % Plt Count (130-400) K/uL MPV (9.4-12.4) fL Immature Gran % (Auto) % Neut % (Auto) % Lymph % (Auto) % [place] % (Auto) % Eos % (Auto) % Baso % (Auto) % Neut # (Auto) (1.40-6.50) K/uL Lymph # (Auto) (1.2-3.4) K/uL [place] # (Auto) (0.11-0.59) K/uL Eos # (Auto) (0-0.50) K/uL Baso # (Auto) (0-0.2) K/uL Immature Gran # (Auto) (0.01-0.20) K/uL PT (9.0-12.0) Seconds INR (0.9-1.1) APTT (21.0-31.0) Seconds PTT Ratio VBG pH (7.36-7.41) VBG pCO2 (38-50) mmHg VBG pO2 mmHg VBG HCO3 mmol/L VBG O2 Saturation % VBG Base Excess mEq/L Sodium (136-145) mmol/L Potassium (3.5-5.1) mmol/L Chloride (98-107) mmol/L Carbon Dioxide (21-32) mmol/L Anion Gap (3-11) BUN (6-23) mg/dl Creatinine (0.6-1.2) mg/dl Est Cr Clr Drug Dosing ml/min Est GFR ( Amer) ml/min Est GFR (Non-Af Amer) ml/min BUN/Creatinine Ratio (10-20) Glucose (70-99(Fasting)) mg/dl Calcium (8.6-10.3) mg/dl Magnesium (1.7-2.4) mg/dl Total Bilirubin (0.2-1.0) mg/dl AST (13-39) U/L ALT (7-52) U/L Alkaline Phosphatase (34-104) U/L Ammonia (18-72) umol/L Troponin I High Sens (0-14) pg/ml B-Natriuretic Peptide 231 H (0-100) pg/ml Total Protein (6.0-8.3) gm/dl Albumin (3.4-5.0) gm/dl Globulin (2.5-4.0) gm/dl Albumin/Globulin Ratio (0.9-2) TSH 1.820 (0.300-4.500) uIu/ml SARS-CoV-2 (PCR) NEGATIVE (Negative) Influenza Type A (PCR) Negative (Neg) Influenza Type B (PCR) Negative (Neg) RSV (RT-PCR) Negative (Neg) 10/03/22 10/03/22 Range/Units 16:10 16:10 WBC (4.8-10.8) K/ul RBC (4.20-5.40) M/uL Hgb (12.0-16.0) g/dl Hct (37.0-47.0) % MCV (80.0-100.0) fL MCH (25.0-34.0) pg MCHC (32.0-36.0) g/dL RDW Std Deviation (36.4-46.3) fL RDW Coeff of Malinda (11.5-14.5) % Plt Count (130-400) K/uL MPV (9.4-12.4) fL Immature Gran % (Auto) % Neut % (Auto) % Lymph % (Auto) % [place] % (Auto) % Eos % (Auto) % Baso % (Auto) % Neut # (Auto) (1.40-6.50) K/uL Lymph # (Auto) (1.2-3.4) K/uL [place] # (Auto) (0.11-0.59) K/uL Eos # (Auto) (0-0.50) K/uL Baso # (Auto) (0-0.2) K/uL Immature Gran # (Auto) (0.01-0.20) K/uL PT (9.0-12.0) Seconds INR (0.9-1.1) APTT (21.0-31.0) Seconds PTT Ratio VBG pH 7.43 H (7.36-7.41) VBG pCO2 56 H (38-50) mmHg VBG pO2 26 mmHg VBG HCO3 37 mmol/L VBG O2 Saturation < 60.0 % VBG Base Excess 10.7 mEq/L Sodium (136-145) mmol/L Potassium (3.5-5.1) mmol/L Chloride (98-107) mmol/L Carbon Dioxide (21-32) mmol/L Anion Gap (3-11) BUN (6-23) mg/dl Creatinine (0.6-1.2) mg/dl Est Cr Clr Drug Dosing ml/min Est GFR ( Amer) ml/min Est GFR (Non-Af Amer) ml/min BUN/Creatinine Ratio (10-20) Glucose (70-99(Fasting)) mg/dl Calcium (8.6-10.3) mg/dl Magnesium (1.7-2.4) mg/dl Total Bilirubin (0.2-1.0) mg/dl AST (13-39) U/L ALT (7-52) U/L Alkaline Phosphatase (34-104) U/L Ammonia 21.0 (18-72) umol/L Troponin I High Sens (0-14) pg/ml B-Natriuretic Peptide (0-100) pg/ml Total Protein (6.0-8.3) gm/dl Albumin (3.4-5.0) gm/dl Globulin (2.5-4.0) gm/dl Albumin/Globulin Ratio (0.9-2) TSH (0.300-4.500) uIu/ml SARS-CoV-2 (PCR) (Negative) Influenza Type A (PCR) (Neg) Influenza Type B (PCR) (Neg) RSV (RT-PCR) (Neg) Administered Medications Discontinued Medications Potassium Chloride (K Rocky / Wtr) 10 meq in 100 mls @ 100 mls/hr IV ONE ONE Stop: 10/03/22 17:06 Last Infusion: 10/03/22 17:48 Dose: 0 mls/hr Documented By: Admin: 10/03/22 16:32 Dose: 100 mls/hr Documented By: Potassium Chloride (Potassium Chloride Crtab 20 Meq Tabcr) 40 meq PO NOW STA Stop: 10/03/22 16:00 Last Admin: 10/03/22 16:33 Dose: 40 meq Documented By: Imaging Data Radiologist's Impression: Chest X-Ray 10/03/22 12:34 XR chest 1V not portable CLINICAL HISTORY: Chest pain, nonspecific TECHNIQUE: Single frontal radiograph of the chest was obtained. Comparison: Comparison is made to chest radiograph 09/27/2022 FINDINGS: No lines and tubes are seen. The cardiomediastinal silhouette is normal. The lungs are clear. No evidence of pleural effusion or pneumothorax. IMPRESSION: No acute chest disease. ACT 112: Negative or not required by law. Electronically signed by: Andrey Carrasco M.D. 10/03/2022 1:[address] 10/03/22 15:54 CT head/brain wo con CLINICAL HISTORY: confusion Technique: Contiguous axial CT images of the head were acquired from the base of the skull to the vertex without intravenous contrast administration. Images were viewed in brain, subdural and bone windows. Automated dose lowering techniques and/or adjustment according to patient size were utilized for this exam. Comparison: Comparison is made to CTA head 06/09/2022 and MRI brain 05/30/[address] head 08/29/2019 Findings: Areas of decreased attenuation are present in the periventricular and subcortical white matter bilaterally consistent with small vessel ischemic disease. Generalized cerebral atrophy with commensurate enlargement of the ventricles, sulci, and cisterns is also present, asymmetric enlargement of the right temporal horn is unchanged from prior exam.. There is no acute intracranial hemorrhage or evidence of acute territorial infarction. No shift of the midline structures, mass effect, or extra-axial abnormalities are shown. Atherosclerotic calcifications are present in the intracranial segments of the internal carotid arteries. Imaged portions of the paranasal sinuses and mastoid air cells are clear. The orbits appear normal. A few lucent foci most prominently in the left calvarium is unchanged from prior exams. These are nonspecific but may represent venous lakes. These are stable from 2020. Impression: No acute intracranial hemorrhage, no evidence of acute territorial infarction or other acute intracranial disease process. ACT 112: Negative or not required by law. Electronically signed by: Andrey Carrasco M.D. 10/03/2022 4:34 PM Discharge Plan Visit Data Chief Complaint: Chest Pain Stated Complaint: SOB;CHEST PAIN;EDEMA ED Provider: Skip Aguayo Discharge Problem: Weakness, Hypokalemia Patient Disposition: Being Evaluated by Hospitalist Forms Stand Alone Forms: Replaced By [facility] Prescriptions Prescriptions: No Action nitroglycerin [Nitrostat] 0.4 mg tablet, sublingual 0.4 mg sublingual Q5M PRN (Reason: chest pain) Qty: 20 1RF Rx Instructions: 0.4 mg tablet under tongue every 5 minutes, up to a series of 3 tabs, as needed for chest discomfort. rosuvastatin [Crestor] 40 mg tablet 40 mg PO HS Qty: 90 3RF Eliquis 5 mg tablet 5 mg PO BID Qty: 180 3RF buspirone 5 mg tablet 5 mg PO BID Qty: 90 3RF memantine [Namenda] 10 mg tablet 10 mg PO BID Qty: 180 1RF bumetanide 2 mg tablet 2 mg PO DAILY Rx Instructions: On Monday(09/23/22) they told daughter to change to once a day calcium carbonate [Calcium 600] 600 mg calcium (1,500 mg) Tablet 1,200 mg PO QAM cholecalciferol (vitamin D3) [Vitamin D3] 25 mcg (1,000 unit) Capsule 1,000 unit PO QAM docusate sodium 100 mg Capsule 200 mg PO BID amiodarone 200 mg Tablet 100 mg PO HS Qty: 30 0RF Rx Instructions: 1/2 tab at bedtime acetaminophen 325 mg Tablet 650 mg PO Q4H PRN (Reason: pain) Qty: 60 0RF estradiol 0.075 mg/24 hr patch weekly 0.075 mg transdermal WK Rx Instructions: APPLY 1 PATCH TOPICALLY WEEKLY. CHANGE PATCH ON SUNDAYS pantoprazole 40 mg tablet,delayed release (DR/EC) 40 mg PO DAILYBB Rx Instructions: 1/2 hour prior to breakfast PO daily; cyanocobalamin (vitamin B-12) [Vitamin B-12] 500 mcg Tablet 500 mcg PO QAM ascorbic acid (vitamin C) [Vitamin C] 500 mg Tablet 500 mg PO DAILY fluticasone propionate 50 mcg/actuation [place],Suspension 2 spray NA DAILY Qty: 16 0RF Saline Mist 0.65 % Aerosol,[place] 1 spray NA TID Qty: 44 0RF mirtazapine 30 mg tablet 60 mg PO HS Rx Instructions: per daughter, they told her to give her mother two tabs potassium chloride 20 mEq tablet extended release 20 meq PO BID Rx Instructions: Per daughter they told this morning she can decrease to twice daily Referrals Referrals: Pro,Sravan Diaz MD [Primary Care Provider] -
--- NOTE | 2022-10-03 18:46 | History & Physical Report ---
Date of Service October 03, 2022 Assessment & Plan (1) Generalized weakness: Plan: Acute on chronic issue which is multifactorial at this time. - Obtain ECHO rule out any cardiac/valve changes- appears euvolemic on exam and not in acute exacerbation - PT/OT consultation - Patient likely will need some assistance upon discharge- she may be amendable to rehab facility if appropriate - She has a loop recorder in so appreciate cardiology consultation for evaluation of any dysrhythmia (2) Chronic diastolic CHF (congestive heart failure): Plan: Chronic problem appears in good fluid volume status- might be slightly hypervolemic - She is warm and dry and with minimal peripheral edema - Don't feel this is an acute exacerbation at this time - ECHO as above - Cardiology consultation appreciated (3) Depression with anxiety: Plan: Chronic depression but appears depressed on exam - may benefit from psych consultation for adjustment of meds (4) Sleep apnea: Plan: non compliant with CPAP as she can't get it back on in the middle of the night (5) Afib: Plan: Paroxysmal afib currently in Sinus - Continue with amiodarone - Continue with Eliquis pending PT/OT evaluation - consider adjustment based on fall risk if needed - Electrolytes with ~4.0 and Mag ~2.0 (6) Atypical chest pain: History of Present Illness Primary Care Provider: Sravan Figueroa MD 77 YOF with past medical history of: HFpEF, hyponatremia, CAD, chronic atypical chest pain, HLD, GI bleed, HTN, AASHISH, Paroxysmal Afib, chronic anticoagulation. Patient brought to the EMD today by her daughter for concerns of increase in fatigue, dyspnea, dizziness when standing, and decrease functionality at home. The patient has been followed closely by the CHF clinic with recent adjustment to her diuretics. The patient lives at home by herself and takes care of her "who is way worse than I am", and is dependant on her daughter for ensuring medications are taken and partially for meal preparation. The patient states that she has been getting dizzy when getting up and walking, but notes that it is less so when she sits on the edge of the chair before raising it to stand. She voices difficulty getting to and from her bathroom secondary to fatigue and dyspnea- daughter reports that her bathroom is 30 paces from her chair. The patient does not use any ambulatory aid. She denies any worsening of her chest pain and feels that her leg swelling is greatly improved from her Bumex adjustment made a week ago. On evaluation the patient is in NSR-sinus bradycardia, BP adequate and skin is warm and dry. She appears that her volume status is adequate and CXR and BNP support this. Overall the patient is with chronic health problem that she understands that she is having trouble keeping up with, but does not want to go to a facility and wants to maintain her independence as much as she can but does endorse she would like help in taking care of herself and meals. Her daughter is her primary agent and is feeling overwhelmed with this as well. Patient will be observed to repeat her ECHO to make sure no change in her cardiac function or valve function has occurred, i believe she is medically optimized, PT/OT evaluation and case management consultation for evaluation of assistance at home. CODE: DNR/DNI COVID: Negative Allergies Allergy/AdvReac Type Severity Reaction Status Date / Time gluten Allergy Intermediate Celiac Verified 10/03/22 17:23 disease latex Allergy Mild Rash Verified 10/03/22 17:23 amoxicillin AdvReac Intermediate Yeast Verified 10/03/22 17:23 infection cefdinir AdvReac Intermediate nausea Verified 10/03/22 17:23 Cephalosporins AdvReac Intermediate Yeast Verified 10/03/22 17:23 infection clavulanic acid AdvReac Intermediate Yeast Verified 10/03/22 17:23 infection prednisone AdvReac Intermediate Anxiety Verified 10/03/22 17:23 Home Medications Medication Instructions Recorded Confirmed Type docusate sodium 100 mg capsule 200 mg PO BID 04/15/18 10/03/22 History calcium carbonate 600 mg calcium 1,200 mg PO QAM 06/08/19 10/03/22 History (1,500 mg) tablet (Calcium) cholecalciferol (vitamin D3) 25 1,000 unit PO QAM 06/08/19 10/03/22 History mcg (1,000 unit) capsule (Vitamin D3) nitroglycerin 0.4 mg sublingual 0.4 mg sublingual Q5M PRN chest 09/25/21 10/03/22 Rx tablet (Nitrostat) pain #20 tabs rosuvastatin 40 mg tablet (Crestor) 40 mg PO HS #90 tabs 02/21/22 10/03/22 Rx amiodarone 200 mg tablet 100 mg PO HS #30 tabs 03/04/22 10/03/22 Rx apixaban 5 mg tablet (Eliquis) 5 mg PO BID #180 tabs 04/29/22 10/03/22 Rx acetaminophen 325 mg tablet 650 mg PO Q4H PRN pain #60 tabs 05/30/22 10/03/22 Rx buspirone 5 mg tablet 5 mg PO BID #90 tabs 06/13/22 10/03/22 Rx memantine 10 mg tablet (Namenda) 10 mg PO BID #180 tabs 07/11/22 10/03/22 Rx estradiol 0.075 mg/24 hr weekly 0.075 mg transdermal WK 07/28/22 10/03/22 History transdermal patch pantoprazole 40 mg tablet,delayed 40 mg PO DAILYBB 07/28/22 10/03/22 History release ascorbic acid (vitamin C) 500 mg 500 mg PO DAILY 09/03/22 10/03/22 History tablet (Vitamin C) cyanocobalamin (vitamin B-12) 500 500 mcg PO QAM 09/03/22 10/03/22 History mcg tablet (Vitamin B-12) fluticasone propionate 50 2 spray NA DAILY #16 grams 09/04/22 10/03/22 Rx mcg/actuation nasal spray,suspension sodium chloride 0.65 % nasal spray 1 spray NA TID #44 mL 09/04/22 10/03/22 Rx aerosol (Saline Mist) bumetanide 2 mg tablet 2 mg PO DAILY 09/27/22 10/03/22 History mirtazapine 30 mg tablet 60 mg PO HS 09/27/22 10/03/22 History potassium chloride 20 mEq 20 meq PO TID 09/27/22 10/03/22 History tablet,extended release Past Med/Surg History Medical History (Updated 10/04/22 @ 08:04 by Jacobo Coffey MD) Acute blood loss anemia (ABLA) Acute hyponatremia Anemia RECEIVED 2 UNITS [facility] 04/2021 RECENT ADMISSION Atypical chest pain CAD (coronary artery disease) Medically managed by cardiology NSTEMI 07/27/20- cath demonstrated small branch vessel disease involving small OM to, not amenable to intervention. CD (celiac disease) "Does not" follow gluten-free diet Chest pressure Chronic diastolic congestive heart failure Constipation Degenerative disc disease Diastolic CHF Diverticulitis 2013 Dyslipidemia GI bleed reason for Endoscopy History of paroxysmal supraventricular tachycardia with atrial tachycardia Hypercholesterolemia Hypertension Hypokalemia Low back pain with sciatica Nausea & vomiting Non-ST elevation OR (NSTEMI) 07/27/20 Obstructive sleep apnea Ocular migraine Open wound of buttock Paroxysmal atrial fibrillation Sleep apnea CPAP Syncope and collapse Tremor Vertigo Surgical History History of arthroscopy of right shoulder RCR History of cardiac cath 2015, 07/28/20 ([place]) > no stents History of cardioversion x2, most recent 04/2019 History of carpal tunnel release R/L History of cataract surgery R/L History of cholecystectomy History of colonoscopy History of esophagogastroduodenoscopy (EGD) History of foot surgery R/L feet "to straighten toes" History of fracture of left shoulder Plate + screws History of hysterectomy JOANNA + BSO History of incision and drainage Right foot History of tonsillectomy History of total knee replacement Left x2, right x1 S/P transesophageal echocardiogram (JOHANA) Status post placement of implantable loop recorder Implanted 12/2019 - Follows Dr. Yoo > to see Dr. Powers this afternoon for check Family History Mother Family hx of colon cancer Colorectal cancer Brother Prostate cancer Family history of diabetes mellitus Father Dissecting aortic aneurysm Myocardial infarction Grandmother (Maternal) Stroke Other No family history of adverse response to anesthesia Denies family history of Ovarian cancer Breast cancer Social History Smoking Status: Former smoker Tobacco Type: Cigarettes Age Started Using Tobacco: 19; Age Quit Using Tobacco: 27; packs per day: 0.25; Second Hand Exposure: No; Do You Dip or Chew Tobacco: No; Hx Alcohol Use: No Hx Substance Use: No Preferred Language: Serbian Communication Ability: Effective Visual Impairment: No Limitations Hearing Ability: Normal Mine Surveyor Required: No Beliefs That Will Affect Care: None marital status: Current Living Situation: Spouse Current Living Situation Comment: home with current occupational status: retired Other Information That Helps Us Care for You: 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; 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 [employer]; 3 children Feels Safe at Home: Yes Safety Concerns: Feels Safe At This Time Childhood Exposure to Second-Hand Smoke: No Dental Care, Regularly: Yes Physical Activity Frequency: 3-4 Times per Week Seatbelt Use: always Sunscreen Use: Yes Assistive Devices: Walker Review of Systems Review of Systems: REVIEW OF SYSTEMS: Constitutional: No fever, sweats or chills Eyes: No diplopia, no worsening or blurred vision ENT: normal hearing, no trouble swallowing Respiratory: (+) cough, dyspnea at rest or on exertion Cardiovascular: (+) chronic chest pain- without change, No tightness or palpitations Abdomen: No pain, nausea, vomiting, diarrhea or constipation Musculoskeletal:(+) fatigue of legs, Neurologic: No weakness, numbness/tingling, Psychiatric: (+) depression, Skin: No rash or itch Physical Exam Physical Exam: PHYSICAL EXAM: General: awake, alert, no apparent distress, appears saddened Head: Normocephalic, atraumatic ENT: PERRL, EOMI, no pharyngeal exudate, mucous membranes dry Neuro: AAO x 3, speech clear and appropriate, strength intact bilaterally 5/5, sensation intact and equal all extremities and dermatomes, no pronator drift Chest: equal rise and fall of the chest, no accessory muscle use, no heaves or thrills, Clear to auscultation, on room air, Cardiac: Regular rate and rhythm, telemetry reviewed- sinus bradycardia, skin warm dry, cap refill <3 seconds, peripheral pulses +2 no JVD, no murmur, no edema GI: NABS x 4 quadrants, soft, nontender to palpation, no rebound, guarding or tenderness : Spontaneously voiding, no pain, no CVA tenderness, Extremities: Normal inspection, no peripheral edema or erythema, calfs nontender to palpation Psych: Depressed mood, flat affect Skin: no rash or erythema Results & Data Results & Data Vital Signs (Past 12 Hours) Vital Signs Temp Pulse Pulse Resp BP BP Pulse Ox 10/03/22 18:06 54 L 20 138/66 97 10/03/22 15:25 46 L 10/03/22 16:05 10/03/22 16:05 10/03/22 16:04 48 L 17 10/03/22 12:26 36.7 C 58 L 22 128/69 99 O2 Del Method 10/03/22 18:06 Room Air 10/03/22 15:25 10/03/22 16:05 Room Air 10/03/22 16:05 Room Air 10/03/22 16:04 10/03/22 12:26 Room Air Laboratory Results Abnormal lab results 10/03/22 10/03/22 10/03/22 Range/Units 13:25 13:25 13:25 RBC 3.97 L (4.20-5.40) M/uL RDW Std Deviation 52.7 H (36.4-46.3) fL RDW Coeff of Malinda 15.2 H (11.5-14.5) % PT 12.1 H (9.0-12.0) Seconds VBG pH (7.36-7.41) VBG pCO2 (38-50) mmHg Potassium 3.1 L (3.5-5.1) mmol/L Carbon Dioxide 35 H (21-32) mmol/L B-Natriuretic Peptide (0-100) pg/ml 10/03/22 10/03/22 Range/Units 13:25 16:10 RBC (4.20-5.40) M/uL RDW Std Deviation (36.4-46.3) fL RDW Coeff of Malinda (11.5-14.5) % PT (9.0-12.0) Seconds VBG pH 7.43 H (7.36-7.41) VBG pCO2 56 H (38-50) mmHg Potassium (3.5-5.1) mmol/L Carbon Dioxide (21-32) mmol/L B-Natriuretic Peptide 231 H (0-100) pg/ml Diagnostic Findings Chest X-Ray 10/03/22 12:34 XR chest 1V not portable CLINICAL HISTORY: Chest pain, nonspecific TECHNIQUE: Single frontal radiograph of the chest was obtained. Comparison: Comparison is made to chest radiograph 09/27/2022 FINDINGS: No lines and tubes are seen. The cardiomediastinal silhouette is normal. The lungs are clear. No evidence of pleural effusion or pneumothorax. IMPRESSION: No acute chest disease. ACT 112: Negative or not required by law. Electronically signed by: Andrey Carrasco M.D. 10/03/2022 1:[address] 10/03/22 15:54 CT head/brain wo con CLINICAL HISTORY: confusion Technique: Contiguous axial CT images of the head were acquired from the base of the skull to the vertex without intravenous contrast administration. Images were viewed in brain, subdural and bone windows. Automated dose lowering techniques and/or adjustment according to patient size were utilized for this exam. Comparison: Comparison is made to CTA head 06/09/2022 and MRI brain 05/30/[address] head 08/29/2019 Findings: Areas of decreased attenuation are present in the periventricular and subcortical white matter bilaterally consistent with small vessel ischemic disease. Generalized cerebral atrophy with commensurate enlargement of the ventricles, sulci, and cisterns is also present, asymmetric enlargement of the right temporal horn is unchanged from prior exam.. There is no acute intr acranial hemorrhage or evidence of acute territorial infarction. No shift of the midline structures, mass effect, or extra-axial abnormalities are shown. Atherosclerotic calcifications are present in the intracranial segments of the internal carotid arteries. Imaged portions of the paranasal sinuses and mastoid air cells are clear. The orbits appear normal. A few lucent foci most prominently in the left calvarium is unchanged from prior exams. These are nonspecific but may represent venous lakes. These are stable from 2020. Impression: No acute intracranial hemorrhage, no evidence of acute territorial infarction or other acute intracranial disease process. ACT 112: Negative or not required by law. Electronically signed by: Andrey Carrasco M.D. 10/03/2022 4:34 PM Medications Administered Home Medications docusate sodium 100 mg capsule 200 mg PO BID 04/15/18 [History Confirmed 10/03/22] calcium carbonate 600 mg calcium (1,500 mg) tablet (Calcium) 1,200 mg PO QAM 06/08/19 [History Confirmed 10/03/22] cholecalciferol (vitamin D3) 25 mcg (1,000 unit) capsule (Vitamin D3) 1,000 unit PO QAM 06/08/19 [History Confirmed 10/03/22] nitroglycerin 0.4 mg sublingual tablet (Nitrostat) 0.4 mg sublingual Q5M PRN chest pain #20 tabs 09/25/21 [Rx Confirmed 10/03/22] rosuvastatin 40 mg tablet (Crestor) 40 mg PO HS #90 tabs 02/21/22 [Rx Confirmed 10/03/22] amiodarone 200 mg tablet 100 mg PO HS #30 tabs 03/04/22 [Rx Confirmed 10/03/22] apixaban 5 mg tablet (Eliquis) 5 mg PO BID #180 tabs 04/29/22 [Rx Confirmed 10/03/22] acetaminophen 325 mg tablet 650 mg PO Q4H PRN pain #60 tabs 05/30/22 [Rx Confirmed 10/03/22] buspirone 5 mg tablet 5 mg PO BID #90 tabs 06/13/22 [Rx Confirmed 10/03/22] memantine 10 mg tablet (Namenda) 10 mg PO BID #180 tabs 07/11/22 [Rx Confirmed 10/03/22] estradiol 0.075 mg/24 hr weekly transdermal patch 0.075 mg transdermal WK 07/28/22 [History Confirmed 10/03/22] pantoprazole 40 mg tablet,delayed release 40 mg PO DAILYBB 07/28/22 [History Confirmed 10/03/22] ascorbic acid (vitamin C) 500 mg tablet (Vitamin C) 500 mg PO DAILY 09/03/22 [History Confirmed 10/03/22] cyanocobalamin (vitamin B-12) 500 mcg tablet (Vitamin B-12) 500 mcg PO QAM 09/03/22 [History Confirmed 10/03/22] fluticasone propionate 50 mcg/actuation nasal spray,suspension 2 spray NA DAILY #16 grams 09/04/22 [Rx Confirmed 10/03/22] sodium chloride 0.65 % nasal spray aerosol (Saline Mist) 1 spray NA TID #44 mL 09/04/22 [Rx Confirmed 10/03/22] bumetanide 2 mg tablet 2 mg PO DAILY 09/27/22 [History Confirmed 10/03/22] mirtazapine 30 mg tablet 60 mg PO HS 09/27/22 [History Confirmed 10/03/22] potassium chloride 20 mEq tablet,extended release 20 meq PO BID 09/27/22 [History Confirmed 10/03/22] Discontinued Medications Potassium Chloride (K Rocky / Wtr) 10 meq in 100 mls @ 100 mls/hr IV ONE ONE Stop: 10/03/22 17:06 Last Infusion: 10/03/22 17:48 Dose: 0 mls/hr Documented By: Admin: 10/03/22 16:32 Dose: 100 mls/hr Documented By: Potassium Chloride (Potassium Chloride Crtab 20 Meq Tabcr) 40 meq PO NOW STA Stop: 10/03/22 16:00 Last Admin: 10/03/22 16:33 Dose: 40 meq Documented By: ECG Additional Comments: Sinus bradycardia Otherwise normal ECG When compared with ECG of 27-SEP-2022 14:26, No significant change was found Code Status & VTE Plan VTE Prophylaxis Plan VTE Prophylaxis will be ordered: Yes Supervising Physician Co-Signing Physician Notes I personally saw and examined the patient. I verified all cramer points and agree with JO ANN Dyer with the following exceptions and/or additions: 77 year old female presents to the ER with generalized weakness, chest pressure and presyncope. No respiratory, GI or urinary infection symptoms. Most recently she has had worsening leg swelling for which she has been increasing Bumex to 6mg /day on advice of the heart failure clinic rather than her usual 2mg/day. O/E A&Ox3, HS RRR, no murmurs, Chest CTAB, no pain on palpation of chest, Abdo SNT, pedal edema b/l equal 1+ no knees A/P Generalized weakness - suspect chronic deconditioning in setting of recently worsening heart failure. PT/OT. UA negative, CXR, history negative for infective etiology. Chronic CHF with preserved ejection fraction - continue bumex 2mg/day, consult cardiology for ongoing management Chest pain - 2 days of this, no history of GERD and not related, troponin negative, no tachycardia or hypoxia to suggest PE, suspect MSK vs. CHF Presyncope - suspect sudden increase in Bumex may have been just too much too quickly (she increased from 2mg to 6mg daily). She appears to be relatively euvolemic today and reports leg swelling has recently improved therefore will restart patient on 2mg and monitor for ongoing presyncope. PG Care Time/CCT Total # of Minutes Spent Total Time Spent with Patient: Total time spent is greater than 50% in coordination of care (as documented) at patient's floor/unit and/or counseling patient: Coding Level of Care Code 38907 INT INP/OBS CARE 2/55MIN Diagnoses Generalized weakness R53.1 Chronic diastolic CHF (congestive heart failure) I50.32 Depression with anxiety F41.8 Sleep apnea G47.30 Afib I48.91 Atrial fibrillation type: unspecified Atypical chest pain R07.89 (5) Afib Atrial fibrillation type: unspecified Qualified Code(s): I48.91 - Unspecified atrial fibrillation
[2022-10-03 18:56] LABS: Appearance Urine Clear (Clear); Bilirubin Urine Negative (Negative); Blood Urine Negative (Negative); Color Urine Yellow; Glucose Urine UA Negative (Negative); Ketones Urine Negative (Negative); Leukocyte Esterase Urine Negative (Negative); Nitrite Urine Negative (Negative); Protein Urine Negative (Negative); Specific Gravity Urine 1.008 (1.000-1.030); Urobilinogen Urine Negative (Negative); pH Urine 7.5 (4.5-7.5)
[2022-10-03] MEDS ORDERED: NITROGLYCERIN SL 0.4 MG/TAB TAB SL PRN (20:41)
[2022-10-03] MEDS: MIRTAZAPINE TAB 15 MG TAB PO SCH (21:54)
[2022-10-03] MEDS: APIXABAN 5 MG TABLET PO SCH (21:54)
[2022-10-03] MEDS: MEMANTINE HCL 10 MG TAB PO SCH (21:54)
[2022-10-03] MEDS: AMIODARONE 200 MG TAB PO SCH (21:54)
[2022-10-03] MEDS: busPIRone 5 MG TAB PO SCH (21:54)
[2022-10-03] MEDS: ROSUVASTATIN CALCIUM 20 MG TAB PO SCH (21:54)
[2022-10-03] MEDS: DOCUSATE SODIUM 100 MG CAP PO SCH (21:54)
[2022-10-04 06:00] LABS: Hematocrit (blood only) 33.1 % (37.0-47.0); Hemoglobin 11.3 g/dl (12.0-16.0); Mean Corpuscular Hgb Conc 34.1 g/dL (32.0-36.0); Mean Corpuscular Volume 93.8 fL (80.0-100.0); Mean Platelet Volume 10.7 fL (9.4-12.4); Platelet Count 222 K/uL (130-400); RDW Coefficient of Variation 15.1 % (11.5-14.5); RDW Standard Deviation 52.9 fL (36.4-46.3); Red Blood Count 3.53 M/uL (4.20-5.40); White Blood Count 5.68 K/ul (4.8-10.8)
[2022-10-04] MEDS: PANTOprazole 40 MG TAB PO SCH (06:06)
[2022-10-04 06:22] LABS: BUN Creatinine Ratio 15.6 (10-20); Calcium 8.7 mg/dl (8.6-10.3); Creatinine Clr Calc Pharmacy 59.5 ml/min; Est GFR (African American) 86.3 ml/min; Est GFR (Non-African American) 74.5 ml/min; Magnesium 1.9 mg/dl (1.7-2.4); Phosphorus 3.5 mg/dl (2.5-4.9); Potassium 3.6 mmol/L (3.5-5.1)
[2022-10-04 06:23] LABS: Basophils # (auto) 0.06 K/uL (0-0.2); Basophils % (auto) 1.1 %; Eosinophils # (auto) 0.16 K/uL (0-0.50); Eosinophils % (auto) 2.8 %; Lymphocytes # (auto) 2.93 K/uL (1.2-3.4); Lymphocytes % (auto) 51.6 %; Monocytes # (auto) 0.61 K/uL (0.11-0.59); Monocytes % (auto) 10.7 %; Neutrophils # (auto) 1.92 K/uL (1.40-6.50); Neutrophils % (auto) 33.8 %
[2022-10-04] MEDS: BUMETANIDE 1 MG TAB PO SCH (08:46)
[2022-10-04] MEDS: CYANOCOBALAMIN (B-12) 500 MCG TABLET PO SCH (08:46)
[2022-10-04] MEDS: APIXABAN 5 MG TABLET PO SCH ×2 (08:46→22:09)
[2022-10-04] MEDS: FLUTICASONE PROPIONATE NA SPR 16 GM BTL SCH (08:47)
[2022-10-04] MEDS: MEMANTINE HCL 10 MG TAB PO SCH ×2 (08:47→22:08)
[2022-10-04] MEDS: busPIRone 5 MG TAB PO SCH ×2 (08:47→22:08)
[2022-10-04] MEDS: DOCUSATE SODIUM 100 MG CAP PO SCH ×2 (08:47→22:09)
--- NOTE | 2022-10-04 12:35 | XCELERA ---
[id number] [id number]
--- NOTE | 2022-10-04 12:37 | Hospitalist Progress Note ---
Date of Service October 04, 2022 Assessment & Plan (1) Generalized weakness: Plan: Acute on chronic issue which is multifactorial at this time. -I think she was overdiuresed, complains of dizziness upon standing (will check orthostatic BP) - ECHO EF 60-65% - PT/OT consultation - Patient likely will need some assistance upon discharge- she may be amendable to rehab facility if appropriate - She has a loop recorder in so appreciate cardiology consultation for evaluati on of any dysrhythmia (2) Chronic diastolic CHF (congestive heart failure): Plan: -She appears compensated, probably even a little overdiuresed - She is warm and dry and with no peripheral edema - ECHO EF 60-65% -Will hold bumex for one day - Cardiology consultation appreciated (3) Depression with anxiety: Plan: Denies being depressed, she says she has good support at home (4) Sleep apnea: Plan: non compliant with CPAP as she can't get it back on in the middle of the night (5) Afib: Plan: Paroxysmal afib currently in Sinus - Continue with amiodarone - Continue with Eliquis pending PT/OT evaluation - consider adjustment based on fall risk if needed - Electrolytes with ~4.0 and Mag ~2.0 (6) Atypical chest pain: Plan: complains of chest pressure, non radiating, not exacerbated by exercise Cardiology on consult No ST changes on EKG, trop normal Plan continue hospitalization Admission and Anticipated Discharge Date Admission Date: October 03, 2022 Subjective patient seen and examined, feels very weak, also complained of dizzines upon standing up Review of Systems Review of Systems: All systems reviewed are negative, apart from the ones contained in the history. Results & Data Results & Data Vital Signs (Past 12 Hours) Vital Signs Temp Pulse Resp BP Pulse Ox O2 Del Method 10/04/22 07:46 97.5 F L 55 L 16 109/51 L 95 Room Air PG Care Time/CCT Total # of Minutes Spent Total Time Spent with Patient: Total time spent is greater than 50% in coordination of care (as documented) at patient's floor/unit and/or counseling patient: Coding Level of Care Code 21747 SUB INP/OBS CARE 2/35MIN Diagnoses Generalized weakness R53.1 Chronic diastolic CHF (congestive heart failure) I50.32 Depression with anxiety F41.8 Sleep apnea G47.30 Afib I48.91 Atrial fibrillation type: unspecified Atypical chest pain R07.89 Time Spent (min) 35 (5) Afib Atrial fibrillation type: unspecified Qualified Code(s): I48.91 - Unspecified atrial fibrillation
--- NOTE | 2022-10-04 13:57 | Cardiology Consultation ---
Date of Consultation October 04, 2022 Assessment & Plan (1) Chronic heart failure with preserved ejection fraction: (2) Generalized weakness: (3) CAD (coronary artery disease): (4) Chest pain: (5) Paroxysmal atrial fibrillation: (6) Near syncope: Plan ASSESSMENT/PLAN: 1. Chronic heart failure with preserved EF: She does not appear hypervolemic and in fact with more aggressive diuretics just prior to presentation, she developed near syncope and appeared to have orthostatic symptoms. Bumex currently on hold but would resume 2 mg daily in the next day or so. I's and O's. Daily weights. Low-sodium diet recommended. 2. Atrial fibrillation: Has had multiple cardioversions in the past. In sinus on amiodarone. Has loop recorder in place. Continue anticoagulation for stroke risk reduction. Monitor transaminase levels and TSH periodically while on amiodarone. She has been on amiodarone since January 2021, which has helped maintain sinus rhythm. 3. Chest pain: Atypical. Has had prolonged episodes of chest pain in the past with unremarkable high-sensitivity troponins. High-sensitivity troponin negative x2, despite prolonged episode. Ischemic evaluation not necessary at this time. 4. CAD: Found to have small vessel disease in the setting of NSTEMI on . Continue statin therapy. 5. Bradycardia: Has had mild bradycardia in the past. Amiodarone has been reduced to 100 mg daily in the past by electrophysiology (March 2022). 6. Near syncope: Based on timing, likely due to orthostasis after more aggressive diuretic. Resume 2 mg of Bumex in the next day or 2. 7. Generalized weakness/fatigue: Etiology unclear. Per primary hospitalist service. 8. Dyspnea on exertion: She does not appear hypervolemic. Consider CT imaging of the chest. We will ultimately defer to primary hospitalist. 9. Abdominal discomfort: Tender on palpation. Her daughter is concerned about this as well. Has been diagnosed with celiac. Unclear if this is related to celiac or other GI process. Consider imaging as per primary service. 10. Weight loss: She has lost approximately 30 pounds based on recorded weights in the hospital/outpatient chart. Unclear etiology. Weight loss is notable on visible inspection. Recommend further investigation per hospitalist service. 11. Disposition: Plan of care communicated with primary hospitalist, Dr. Henao. Today's visit was 55 minutes in duration, which includes [id number] time, counseling patient, coordinating care, reviewing multiple records, and completing documentation. History of Present Illness Reason for Consultation: CHF, weakness/orthostasis Requesting Physician: José Miguel Attending Physician: Ariel Henao MD History of Present Illness Mrs. Maxwell is a pleasant 77-year-old female with a history significant for diastolic CHF, atrial fibrillation (Diagnosed 04/15/2018) status post cardioversion, paroxysmal SVT/atrial tachycardia, CAD, and dyslipidemia. She has sleep apnea. On 07/27/2020, she had an acute visit in the cardiology office with chest discomfort and was noted to have minor ST elevation in lateral leads. Initial troponin was 1.91 and peaked at 2.6. Cardiac catheterization demonstrated small branch vessel disease involving small OM to, not amenable to intervention. Flecainide was discontinued given documented CAD. Amiodarone was initiated in January of 2021 for recurrent atrial fibrillation. She has had the following studies: 1. Dobutamine stress echo 05/06/11: Negative for ischemia at 89% MPHR. Positive ECG. No chest pain. Normal LV size and systolic function. Mild MR. 2. Dobutamine stress echo 07/03/12: Negative at 93% MPHR. EF 60%. Mild MR. 3. CTA of aorta 12/24/12: No aneurysm reported. 4. Holter 01/06/2014: Sinus rhythm with average heart rate 74 bpm. Blunted diurnal heart rate variation. No ectopy. No arrhythmia. Shoulder pain during lifting occurred during normal sinus rhythm. 5. Echo 09/14/2015: Normal LV size, wall motion, systolic function. EF 60%. No significant valvular abnormalities. 6. Dobutamine stress echo 02/23/2016: Abnormal at 100% MPHR suggesting distal LAD ischemia. Apical wall segments appear hypokinetic at peak stress. PVCs. No arrhythmia. Chest pain reported. 7. Cardiac catheterization 03/15/2016: No significant CAD. LVEDP 15mmHg. No aortic stenosis. Normal cardiac output. Normal PCWP. PA pressure 37/11 with mean of 20. 8. Event monitor 04/05/2016 to 05/04/2016: Predominantly sinus rhythm. Paroxysmal SVT and atrial tachycardia. SVT up to 17 beats. No symptoms reported. 9. Echo 10/10/2017: Normal LV size, wall motion, systolic function. EF 60- 65%. No LVH. No significant diastolic dysfunction. Mild to moderate MR. RVSP 31. 10. DC CV 06/21/2018: Elective. One hundred fifty joules converted AFib to sinus rhythm. 11. DC Cardioversion 04/29/2019 [facility]: Elective. AFib converted to sinus rhythm. 12. PFT's 10/02/2019: Nonspecific parallel decrease in FEV1 and FVC. DLCO mildly reduced. 13. Echo 10/04/2019: Normal LV size, wall motion, systolic function. EF 60- 65%. Mild MR. RVSP 38. Sinus bradycardia in the 50s. 14. Event monitor 09/27/2019 to 10/10/2019: Predominantly sinus rhythm with average heart rate 67 beats per minute. One episode of nonsustained SVT (14 beats) at 148 beats per minute. PACs. To on describe symptomatic episodes occurred during sinus rhythm. 15. Loop recorder 12/05/2019: Anomalous [employer] loop recorder implanted by Dr. Powers. Implanted for syncope. 16. Echo 07/28/2020: Normal LV size, wall motion and systolic function. EF 60- 65%. Mild LVH. Mild MR. 17. Cardiac cath 07/28/2020: No significant coronary artery disease of major epicardial vessels. Small branch vessel disease with severe disease in small OM2 prior to mid segment occlusion (vessel < 2 mm).LVEDP 14. MR 1+. 18. JOHANA guided cardioversion 02/15/2021: No thrombus detected in left atrial appendage. Normal LV systolic function. EF 60-65%. Mild MR. Successful conversion of atrial fibrillation to sinus rhythm. 19. Echo 07/09/2021 [place] : Normal LV size, wall motion, systolic function. EF 60-65%. No LVH. Mild MR. RVSP 38. 20. Lower extremity venous ablation October 2021: Right GSV (10/13/2021). Left GSV (10/20/2021). 21. Limited echo [facility] 12/08/2021: Normal LV size, wall motion, systolic function. EF 55-60%. Mild AI. She was recently seen in the heart failure program on 09/30/2022. She had worsening dyspnea on exertion and 2+ bilateral edema at the ankles. She was felt to be hypervolemic and had demonstrated a 10 pound weight gain over 2 weeks. She was asked to continue Bumex 4 mg daily with an additional 2 mg in the afternoon for 3 days. With her change in Bumex, her edema significantly improved but she had near syncope while standing in her kitchen a few days later. She also had substernal chest pressure while sitting, which lasted for approximately 2 hours. She denies actual syncope but felt lightheaded and dizzy while standing. Unfortunately, she does not believe that her dyspnea on exertion significantly improved. She denies orthopnea. Her daughter, Katya, participated in today's visit via speaker phone. She states that her mother appeared quite short of breath while walking only 30 feet in her home yesterday. She states that her mother has appeared very fatigued and has been slow with her walking for the past 2 weeks, ever since being diagnosed with a sinus infection. When asked about weight loss (she appears to have lost weight on visible inspection), her daughter agrees that she has lost muscle mass. She states that she does not believe that she is eating as well as she should be. She is consuming 2 or 3 boost daily. She also complains of headaches more frequently, specifically every other day or so. She had an episode of palpitations which were short-lived in the past week. She denies melena, hematochezia, or hematuria. She denies fever. She denies abdominal pain but whenever palpated, she has discomfort, which can persist. In general, her daughter is concerned that she is just not doing well in general with her weakness, fatigue, and general wellbeing. Review of systems:As above. Review of systems otherwise negative/unremarkable. Family history:No known premature CAD. Her father at the age of 63 secondary to an aortic dissection. Daughter had a stroke. Social history:Denies tobacco, alcohol, drug abuse. She is and has 3 children. She lives at home. Her has several health issues, including schizophrenia with delusions and cognitive decline. She worked at a [email or web address] shop. Her daughter (Katya Orellana) participated via speaker phone. Allergies Allergy/AdvReac Type Severity Reaction Status Date / Time gluten Allergy Intermediate Celiac Verified 10/03/22 17:23 disease latex Allergy Mild Rash Verified 10/03/22 17:23 amoxicillin AdvReac Intermediate Yeast Verified 10/03/22 17:23 infection cefdinir AdvReac Intermediate nausea Verified 10/03/22 17:23 Cephalosporins AdvReac Intermediate Yeast Verified 10/03/22 17:23 infection clavulanic acid AdvReac Intermediate Yeast Verified 10/03/22 17:23 infection prednisone AdvReac Intermediate Anxiety Verified 10/03/22 17:23 Home Medications Medication Instructions Recorded Confirmed Type docusate sodium 100 mg capsule 200 mg PO BID 04/15/18 10/03/22 History calcium carbonate 600 mg calcium 1,200 mg PO QAM 06/08/19 10/03/22 History (1,500 mg) tablet (Calcium) cholecalciferol (vitamin D3) 25 1,000 unit PO QAM 06/08/19 10/03/22 History mcg (1,000 unit) capsule (Vitamin D3) nitroglycerin 0.4 mg sublingual 0.4 mg sublingual Q5M PRN chest 09/25/21 10/03/22 Rx tablet (Nitrostat) pain #20 tabs rosuvastatin 40 mg tablet (Crestor) 40 mg PO HS #90 tabs 02/21/22 10/03/22 Rx amiodarone 200 mg tablet 100 mg PO HS #30 tabs 03/04/22 10/03/22 Rx apixaban 5 mg tablet (Eliquis) 5 mg PO BID #180 tabs 04/29/22 10/03/22 Rx acetaminophen 325 mg tablet 650 mg PO Q4H PRN pain #60 tabs 05/30/22 10/03/22 Rx buspirone 5 mg tablet 5 mg PO BID #90 tabs 06/13/22 10/03/22 Rx memantine 10 mg tablet (Namenda) 10 mg PO BID #180 tabs 07/11/22 10/03/22 Rx estradiol 0.075 mg/24 hr weekly 0.075 mg transdermal WK 07/28/22 10/03/22 History transdermal patch pantoprazole 40 mg tablet,delayed 40 mg PO DAILYBB 07/28/22 10/03/22 History release ascorbic acid (vitamin C) 500 mg 500 mg PO DAILY 09/03/22 10/03/22 History tablet (Vitamin C) cyanocobalamin (vitamin B-12) 500 500 mcg PO QAM 09/03/22 10/03/22 History mcg tablet (Vitamin B-12) fluticasone propionate 50 2 spray NA DAILY #16 grams 09/04/22 10/03/22 Rx mcg/actuation nasal spray,suspension sodium chloride 0.65 % nasal spray 1 spray NA TID #44 mL 09/04/22 10/03/22 Rx aerosol (Saline Mist) bumetanide 2 mg tablet 2 mg PO DAILY 09/27/22 10/03/22 History mirtazapine 30 mg tablet 60 mg PO HS 09/27/22 10/03/22 History potassium chloride 20 mEq 20 meq PO TID 09/27/22 10/03/22 History tablet,extended release Patient History Medical History (Updated 10/04/22 @ 14:06 by Santino Delacruz MD) Acute blood loss anemia (ABLA) Acute hyponatremia Anemia RECEIVED 2 UNITS [facility] 04/2021 RECENT ADMISSION Atypical chest pain CAD (coronary artery disease) Medically managed by cardiology NSTEMI 07/27/20- cath demonstrated small branch vessel disease involving small OM to, not amenable to intervention. CD (celiac disease) "Does not" follow gluten-free diet Chest pressure Chronic diastolic congestive heart failure Constipation Degenerative disc disease Diastolic CHF Diverticulitis 2013 Dyslipidemia GI bleed reason for Endoscopy History of paroxysmal supraventricular tachycardia with atrial tachycardia Hypercholesterolemia Hypertension Hypokalemia Low back pain with sciatica Nausea & vomiting Non-ST elevation LA (NSTEMI) 07/27/20 Obstructive sleep apnea Ocular migraine Open wound of buttock Paroxysmal atrial fibrillation Sleep apnea CPAP Syncope and collapse Tremor Vertigo Surgical History History of arthroscopy of right shoulder RCR History of cardiac cath 2015, 07/28/20 ([place]) > no stents History of cardioversion x2, most recent 04/2019 History of carpal tunnel release R/L History of cataract surgery R/L History of cholecystectomy History of colonoscopy History of esophagogastroduodenoscopy (EGD) History of foot surgery R/L feet "to straighten toes" History of fracture of left shoulder Plate + screws History of hysterectomy JOANNA + BSO History of incision and drainage Right foot History of tonsillectomy History of total knee replacement Left x2, right x1 S/P transesophageal echocardiogram (JOHANA) Status post placement of implantable loop recorder Implanted 12/2019 - Follows Dr. Yoo > to see Dr. Powers this afternoon for check Family History Mother Family hx of colon cancer Colorectal cancer Brother Prostate cancer Family history of diabetes mellitus Father Dissecting aortic aneurysm Myocardial infarction Grandmother (Maternal) Stroke Other No family history of adverse response to anesthesia Denies family history of Ovarian cancer Breast cancer Social History Smoking Status: Former smoker Tobacco Type: Cigarettes Age Started Using Tobacco: 19; Age Quit Using Tobacco: 27; packs per day: 0.25; Second Hand Exposure: No; Do You Dip or Chew Tobacco: No; Hx Alcohol Use: No Hx Substance Use: No Preferred Language: Nigerien Communication Ability: Effective Visual Impairment: No Limitations Hearing Ability: Normal Leasing Agent Required: No Beliefs That Will Affect Care: None marital status: Current Living Situation: Spouse Current Living Situation Comment: home with current occupational status: retired Other Information That Helps Us Care for You: 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 Alert. HEENT: Anicteric sclera. Neck: No appreciable JVD. No hepatic jugular reflux. No bruit. Normal carot id upstrokes bilaterally. Cardiac: PMI was nondisplaced. No ventricular heave. Regular. No ectopy. Normal S1-S2. No murmur. No rubs or gallops. Pulmonary: Chronic closed at the left base, otherwise clear to auscultation bilaterally. Abdomen: Soft, nondistended, with normoactive bowel sounds. No bruits noted. Diffuse tenderness upon palpation. No rebound tenderness. Extremities: 2+ radial pulses bilaterally. 2+ posterior tibialis pulses bilaterally. Trace bilateral lower extremity edema. (Varicose veins previously noted.) No cyanosis. Results & Data Vital Signs (Past 12 Hours) Vital Signs Temp Pulse Resp BP Pulse Ox O2 Del Method 10/04/22 07:46 36.4 C L 55 L 16 109/51 L 95 Room Air Intake & Output 10/02/22 10/03/22 10/04/22 10/05/22 06:59 06:59 06:59 06:59 Intake Total 100 / 100 Balance 100 / 100 Weight 147 lb 4.301 oz Laboratory Results Laboratory Results - last 24 hr 10/03/22 10/03/22 10/03/22 13:25 13:25 13:25 WBC RBC Hgb Hct MCV MCH MCHC RDW Std Deviation RDW Coeff of Malinda Plt Count MPV Immature Gran % (Auto) Neut % (Auto) Lymph % (Auto) [place] % (Auto) Eos % (Auto) Baso % (Auto) Neut # (Auto) Lymph # (Auto) [place] # (Auto) Eos # (Auto) Baso # (Auto) Immature Gran # (Auto) PT 12.1 H INR 1.1 APTT 30.4 PTT Ratio 1.1 VBG pH VBG pCO2 VBG pO2 VBG HCO3 VBG O2 Saturation VBG Base Excess Sodium 141 Potassium 3.1 L Chloride 100 Carbon Dioxide 35 H Anion Gap 6 BUN 14 Creatinine 0.87 Est Cr Clr Drug Dosing 52.7 Est GFR ( Amer) 74.5 Est GFR (Non-Af Amer) 64.3 BUN/Creatinine Ratio 16.1 Glucose 78 Calcium 9.2 Phosphorus Magnesium 1.9 Total Bilirubin 0.4 AST 24 ALT 13 Alkaline Phosphatase 94 Ammonia Troponin I High Sens 6.1 B-Natriuretic Peptide 231 H Total Protein 7.7 Albumin 4.3 Globulin 3.4 Albumin/Globulin Ratio 1.3 TSH Urine Color Urine Appearance Urine pH Ur Specific [place] Urine Protein Urine Glucose (UA) Urine Ketones Urine Blood Urine Nitrite Urine Bilirubin Urine Urobilinogen Ur Leukocyte Esterase SARS-CoV-2 (PCR) Influenza Type A (PCR) Influenza Type B (PCR) RSV (RT-PCR) 10/03/22 10/03/22 10/03/22 13:25 13:25 16:10 WBC RBC Hgb Hct MCV MCH MCHC RDW Std Deviation RDW Coeff of Malinda Plt Count MPV Immature Gran % (Auto) Neut % (Auto) Lymph % (Auto) [place] % (Auto) Eos % (Auto) Baso % (Auto) Neut # (Auto) Lymph # (Auto) [place] # (Auto) Eos # (Auto) Baso # (Auto) Immature Gran # (Auto) PT INR APTT PTT Ratio VBG pH 7.43 H VBG pCO2 56 H VBG pO2 26 VBG HCO3 37 VBG O2 Saturation < 60.0 VBG Base Excess 10.7 Sodium Potassium Chloride Carbon Dioxide Anion Gap BUN Creatinine Est Cr Clr Drug Dosing Est GFR ( Amer) Est GFR (Non-Af Amer) BUN/Creatinine Ratio Glucose Calcium Phosphorus Magnesium Total Bilirubin AST ALT Alkaline Phosphatase Ammonia Troponin I High Sens B-Natriuretic Peptide Total Protein Albumin Globulin Albumin/Globulin Ratio TSH 1.820 Urine Color Urine Appearance Urine pH Ur Specific [place] Urine Protein Urine Glucose (UA) Urine Ketones Urine Blood Urine Nitrite Urine Bilirubin Urine Urobilinogen Ur Leukocyte Esterase SARS-CoV-2 (PCR) NEGATIVE Influenza Type A (PCR) Negative Influenza Type B (PCR) Negative RSV (RT-PCR) Negative 10/03/22 10/03/22 10/04/22 16:10 18:40 05:12 WBC 5.68 RBC 3.53 L Hgb 11.3 L Hct 33.1 L MCV 93.8 MCH 32.0 MCHC 34.1 RDW Std Deviation 52.9 H RDW Coeff of Malinda 15.1 H Plt Count 222 MPV 10.7 Immature Gran % (Auto) 0.0 Neut % (Auto) 33.8 Lymph % (Auto) 51.6 [place] % (Auto) 10.7 Eos % (Auto) 2.8 Baso % (Auto) 1.1 Neut # (Auto) 1.92 Lymph # (Auto) 2.93 [place] # (Auto) 0.61 H Eos # (Auto) 0.16 Baso # (Auto) 0.06 Immature Gran # (Auto) 0.00 L PT INR APTT PTT Ratio VBG pH VBG pCO2 VBG pO2 VBG HCO3 VBG O2 Saturation VBG Base Excess Sodium Potassium Chloride Carbon Dioxide Anion Gap BUN Creatinine Est Cr Clr Drug Dosing Est GFR ( Amer) Est GFR (Non-Af Amer) BUN/Creatinine Ratio Glucose Calcium Phosphorus Magnesium Total Bilirubin AST ALT Alkaline Phosphatase Ammonia 21.0 Troponin I High Sens B-Natriuretic Peptide Total Protein Albumin Globulin Albumin/Globulin Ratio TSH Urine Color Yellow Urine Appearance Clear Urine pH 7.5 Ur Specific [place] 1.008 Urine Protein Negative Urine Glucose (UA) Negative Urine Ketones Negative Urine Blood Negative Urine Nitrite Negative Urine Bilirubin Negative Urine Urobilinogen Negative Ur Leukocyte Esterase Negative SARS-CoV-2 (PCR) Influenza Type A (PCR) Influenza Type B (PCR) RSV (RT-PCR) 10/04/22 10/04/22 05:12 12:58 WBC RBC Hgb Hct MCV MCH MCHC RDW Std Deviation RDW Coeff of Malinda Plt Count MPV Immature Gran % (Auto) Neut % (Auto) Lymph % (Auto) [place] % (Auto) Eos % (Auto) Baso % (Auto) Neut # (Auto) Lymph # (Auto) [place] # (Auto) Eos # (Auto) Baso # (Auto) Immature Gran # (Auto) PT INR APTT PTT Ratio VBG pH VBG pCO2 VBG pO2 VBG HCO3 VBG O2 Saturation VBG Base Excess Sodium 141 Potassium 3.6 Chloride 104 Carbon Dioxide 34 H Anion Gap 3 BUN 12 Creatinine 0.77 Est Cr Clr Drug Dosing 59.5 Est GFR ( Amer) 86.3 Est GFR (Non-Af Amer) 74.5 BUN/Creatinine Ratio 15.6 Glucose 80 Calcium 8.7 Phosphorus 3.5 Magnesium 1.9 Total Bilirubin AST ALT Alkaline Phosphatase Ammonia Troponin I High Sens 4.3 B-Natriuretic Peptide Total Protein Albumin Globulin Albumin/Globulin Ratio TSH Urine Color Urine Appearance Urine pH Ur Specific [place] Urine Protein Urine Glucose (UA) Urine Ketones Urine Blood Urine Nitrite Urine Bilirubin Urine Urobilinogen Ur Leukocyte Esterase SARS-CoV-2 (PCR) Influenza Type A (PCR) Influenza Type B (PCR) RSV (RT-PCR) Diagnostic Findings Head CT 10/03/2022: No acute intracranial hemorrhage per radiology. Chest x-ray 10/03/2022: No acute disease. Clear lungs per radiology. Echo 10/04/2022: Normal LV size, wall motion, systolic function. EF 60 to 65%. No significant diastolic dysfunction. Sclerotic aortic valve. ECG personally reviewed 10/03/2022: Sinus bradycardia 59 bpm. Labs reviewed from 10/04/2022: Stable anemia. Labs 10/03/2022: Normal TSH, normal transaminase levels, normal renal function, normal potassium, mildly elevated BNP. History and physical report reviewed. Medications Administered Current Inpatient Medications Acetaminophen (Acetaminophen 325 Mg Tab) 650 mg PO Q4H PRN PRN Reason: pain Stop: 11/02/22 20:40 Amiodarone HCl (Amiodarone 200 Mg Tab) 100 mg PO HS MERLIN Stop: 11/02/22 20:59 Last Admin: 10/03/22 21:54 Dose: 100 mg Apixaban (Apixaban 5 Mg Tablet) 5 mg PO BID MERLIN Stop: 11/02/22 20:59 Last Admin: 10/04/22 08:46 Dose: 5 mg Bumetanide (Bumetanide 1 Mg Tab) 2 mg PO DAILY MERLIN Stop: 11/03/22 08:59 Last Admin: 10/04/22 08:46 Dose: 2 mg Buspirone HCl (Buspirone 5 Mg Tab) 5 mg PO BID MERLIN Stop: 11/02/22 20:59 Last Admin: 10/04/22 08:47 Dose: 5 mg Cyanocobalamin (Cyanocobalamin (B-12) 500 Mcg Tablet) 500 mcg PO QAM [facility]LIN Stop: 11/03/22 08:59 Last Admin: 10/04/22 08:46 Dose: 500 mcg Docusate Sodium (Docusate Sodium 100 Mg Cap) 200 mg PO BID MERLIN Stop: 11/02/22 20:59 Last Admin: 10/04/22 08:47 Dose: 200 mg Fluticasone Propionate (Fluticasone Propionate Na Spr 16 Gm Btl) 2 sprays NA DAILY MERLIN Stop: 11/03/22 08:59 Last Admin: 10/04/22 08:47 Dose: 2 sprays Memantine (Memantine Hcl 10 Mg Tab) 10 mg PO BID MERLIN Stop: 11/02/22 20:59 Last Admin: 10/04/22 08:47 Dose: 10 mg Mirtazapine (Mirtazapine Tab 15 Mg Tab) 60 mg PO HS MERLIN Stop: 11/02/22 20:59 Last Admin: 10/03/22 21:54 Dose: 60 mg Nitroglycerin (Nitroglycerin Sl 0.4 Mg/Tab Tab) 0.4 mg SL Q5M PRN PRN Reason: chest pain Stop: 11/02/22 20:40 Pantoprazole Sodium (Pantoprazole 40 Mg Tab) 40 mg PO DAILYBB MERLIN Stop: 11/03/22 06:29 Last Admin: 10/04/22 06:06 Dose: 40 mg Rosuvastatin Calcium (Rosuvastatin Calcium 20 Mg Tab) 40 mg PO HS MERLIN Stop: 11/02/22 20:59 Last Admin: 10/03/22 21:54 Dose: 40 mg PG Care Time/CCT Total # of Minutes Spent Total Time Spent with Patient: Total time spent is greater than 50% in coordination of care (as documented) at patient's floor/unit and/or counseling patient: Coding Level of Care Code 70823 INT INP/OBS CARE 2/55MIN Diagnoses Chronic heart failure with preserved ejection fraction I50.32 Generalized weakness R53.1 CAD (coronary artery disease) I25.10 Chest pain R07.9 Chest pain type: unspecified Paroxysmal atrial fibrillation I48.0 Near syncope R55 Time Spent (min) 55 (4) Chest pain Chest pain type: unspecified Qualified Code(s): R07.9 - Chest pain, unspecified
--- NOTE | 2022-10-04 15:26 | CT Scan Report ---
CT SCAN OF THE CHEST, ABDOMEN, AND PELVIS WITHOUT IV CONTRAST CLINICAL HISTORY: Unexplained weight loss. COMPARISON STUDY: CT scan of the chest, abdomen, and pelvis dated 12/09/2021. TECHNIQUE: Unenhanced CT scan of the chest, abdomen, and pelvis was performed from the thoracic inlet to the proximal femora. Images are reviewed in the axial, sagittal, and coronal planes. IV contrast was not administered as per the referring clinician. Note that the examination was performed in subop timal fashion without IV contrast. There is also streak artifact from the arms which could not be el evated above the chest or abdomen. A dose lowering technique was utilized adhering to the principles of ALARA. CT DOSE: 1328.87 mGy.cm FINDINGS: CHEST: Thyroid: Mildly enlarged and heterogeneous. Thoracic aorta: The thoracic aorta is normal in caliber and demonstrates standard 3-vessel arch anato my Heart: The heart is normal in size and without pericardial effusion. There is diminished attenuation of the cardiac blood pool as compared to the myocardium suggesting anemia. Lungs and pleural spaces: There is no airspace consolidation or pleural effusion. The trachea and george tral airways are clear. Mild scarring/atelectasis at the lung bases. A fat-containing [place] herni a is seen on the left. A 3 mm right upper lobe pulmonary nodule image #64 is unchanged. Mediastinum: There is no mediastinal lymphadenopathy. Dunia: Not well assessed without IV contrast. Axillae: There is no axillary lymphadenopathy. Bony thorax: The skeletal structures are osteopenic. Degenerative change and hyperkyphosis is noted i n the thoracic spine. No lytic or blastic lesions are identified. Postoperative change is partially v isualized in the left proximal humerus. ABDOMEN AND PELVIS: Liver: The unenhanced liver is normal in size, contour, and attenuation. There is no intrahepatic linnea iary ductal dilatation. Gallbladder: Surgically absent noting clips in the gallbladder fossa. Spleen: Normal in size and attenuation. Pancreas: The unenhanced pancreas is mildly atrophic and grossly unremarkable. Adrenal glands: Unremarkable. Kidneys: The unenhanced kidneys are normal in size and without hydronephrosis. No renal calculi are i dentified. There is no evidence of contour deforming mass lesion. Abdominal vasculature: The abdominal aorta is normal in course and caliber. Bowel: There is mild to moderate sigmoid diverticulosis without CT evidence of acute diverticulitis. Mild fecal retention is noted throughout the colon. No bowel obstruction is seen. The appendix is no rmal as visualized. Peritoneum: There is no intraperitoneal free air or abdominal ascites. Lymphadenopathy: None. Pelvic viscera: The bladder is normal as visualized. The uterus is surgically absent. No adnexal lesi on is seen. Skeletal structures: The skeletal structures are osteopenic. There is mild to moderate lumbosacral sp ondylosis. Degenerative change is seen in the sacroiliac joints and pubic symphysis. No lytic or soraya tic lesions are seen. IMPRESSION: 1. Suboptimal examinations without oral and IV contrast. There is also streak artifact. 2. The lungs are clear. No change from 12/09/2021. 3. No acute infectious or inflammatory findings are identified in the abdomen or pelvis. No change fr om 12/09/2021. 4. Sigmoid diverticulosis without CT evidence of acute diverticulitis. 5. Additional findings as above.. ACT 112: Negative or not required by law. Electronically signed by: Michael Smith M.D. 10/04/2022 3:23 PM
[2022-10-04] MEDS: AMIODARONE 200 MG TAB PO SCH (22:08)
[2022-10-04] MEDS: MIRTAZAPINE TAB 15 MG TAB PO SCH (22:09)
[2022-10-04] MEDS: ROSUVASTATIN CALCIUM 20 MG TAB PO SCH (22:10)
[2022-10-05] MEDS: PANTOprazole 40 MG TAB PO SCH (05:29)
[2022-10-05 06:41] LABS: Basophils # (auto) 0.05 K/uL (0-0.2); Basophils % (auto) 0.7 %; Eosinophils # (auto) 0.17 K/uL (0-0.50); Eosinophils % (auto) 2.5 %; Hematocrit (blood only) 32.3 % (37.0-47.0); Hemoglobin 11.3 g/dl (12.0-16.0); Lymphocytes # (auto) 3.17 K/uL (1.2-3.4); Lymphocytes % (auto) 46.9 %; Mean Corpuscular Hemoglobin 31.7 pg (25.0-34.0); Mean Corpuscular Volume 90.7 fL (80.0-100.0); Monocytes # (auto) 0.79 K/uL (0.11-0.59); Monocytes % (auto) 11.7 %; Neutrophils # (auto) 2.58 K/uL (1.40-6.50); Neutrophils % (auto) 38.2 %; Platelet Count 222 K/uL (130-400); RDW Coefficient of Variation 14.9 % (11.5-14.5); RDW Standard Deviation 49.9 fL (36.4-46.3); Red Blood Count 3.56 M/uL (4.20-5.40); White Blood Count 6.76 K/ul (4.8-10.8)
[2022-10-05 07:32] LABS: BUN Creatinine Ratio 13.6 (10-20); Calcium 8.5 mg/dl (8.6-10.3); Creatinine Clr Calc Pharmacy 52.1 ml/min; Est GFR (African American) 73.5 ml/min; Est GFR (Non-African American) 63.4 ml/min; Magnesium 1.9 mg/dl (1.7-2.4); Potassium 3.2 mmol/L (3.5-5.1)
[2022-10-05] MEDS: DOCUSATE SODIUM 100 MG CAP PO SCH ×2 (08:24→20:37)
[2022-10-05] MEDS: busPIRone 5 MG TAB PO SCH ×2 (08:24→20:35)
[2022-10-05] MEDS: MEMANTINE HCL 10 MG TAB PO SCH ×2 (08:24→20:35)
[2022-10-05] MEDS: CYANOCOBALAMIN (B-12) 500 MCG TABLET PO SCH (08:24)
[2022-10-05] MEDS: FLUTICASONE PROPIONATE NA SPR 16 GM BTL SCH (08:24)
[2022-10-05] MEDS: APIXABAN 5 MG TABLET PO SCH ×2 (08:24→20:36)
[2022-10-05] MEDS: ACETAMINOPHEN 325 MG TAB PO PRN (08:27)
--- NOTE | 2022-10-05 13:38 | Cardiology Progress Note ---
Date of Service October 05, 2022 Assessment & Plan (1) Chronic heart failure with preserved ejection fraction: (2) Generalized weakness: (3) CAD (coronary artery disease): (4) Chest pain: (5) Paroxysmal atrial fibrillation: (6) Near syncope: Plan ASSESSMENT/PLAN: 1. Chronic heart failure with preserved EF: She did not present with heart failure exacerbation. She does not appear hypervolemic and in fact with more aggressive diuretics just prior to presentation, she developed near syncope and appeared to have orthostatic symptoms. Suggest resuming Bumex 2 mg p.o. daily tomorrow. Strict I's and O's. Daily weights. Low-sodium diet recommended. 2. Atrial fibrillation: Has had multiple cardioversions in the past. In sinus on amiodarone. Has loop recorder in place. Continue anticoagulation for stroke risk reduction. Monitor transaminase levels and TSH periodically while on amiodarone. She has been on amiodarone since January 2021, which has helped maintain sinus rhythm. 3. Chest pain: Atypical. Has had prolonged episodes of chest pain in the past with unremarkable high-sensitivity troponins. High-sensitivity troponin negative, despite prolonged episode. Ischemic evaluation not necessary at this time. 2020 cath demonstrated only small branch vessel disease with severe disease and small OM 2 prior to mid segment occlusion. Repeat catheterization not necessary at this time. 4. CAD: Found to have small vessel disease in the setting of NSTEMI on 07/27/2020. Continue statin therapy. 5. Bradycardia: Has had mild bradycardia in the past. Amiodarone has been reduced to 100 mg daily in the past by electrophysiology (March 2022). 6. Near syncope: Based on timing, likely due to orthostasis after more aggressive diuretic. Resume 2 mg of Bumex orally tomorrow. 7. Generalized weakness/fatigue: Etiology unclear. Per primary hospitalist service. 8. Dyspnea on exertion: She does not appear hypervolemic. Noncontrast CT of the chest was unremarkable. Will ultimately defer to primary hospitalist. 9. Abdominal discomfort: Possibly due to celiac disease while not maintaining a gluten-free diet. Stressed the importance of a gluten-free diet. She expressed understanding. 10. Weight loss: She has lost approximately 30 pounds since October of 2021, based on recorded weights in the hospital/outpatient chart. Unclear etiology. Weight loss is notable on visible inspection. Work up as per primary hospitalist service. Carcinoembryonic antigen is elevated. Further work-up as per hospitalist service as they feel necessary. Also, perhaps related to celiac disease while not maintaining a gluten-free diet. Discussion as above. 11. Disposition: Plan of care communicated with primary hospitalist, Dr. Parrish. Please call with other questions or concerns. Admission and Anticipated Discharge Date Admission Date: October 03, 2022 Subjective She was unaccompanied today. We tried to reach her daughter via speaker phone but she did not answer. She feels a little better today. She denies shortness of breath, orthopnea, syncope, near syncope, palpitations, or edema. She ambulated in the hallway and tolerated it well but had some chest discomfort while climbing stairs. She states that this is the same chest discomfort that she has had chronically intermittently. Physical Exam Physical Exam: Gen.: No acute distress. Alert. HEENT: Anicteric sclera. Neck: No appreciable JVD. No hepatic jugular reflux. Cardiac: PMI was nondisplaced. No ventricular heave. Regular. No ectopy. Normal S1-S2. 1/6 systolic murmur.. No rubs or gallops. Pulmonary: Chronic crackles at the left base, otherwise clear to auscultation bilaterally. Abdomen: Soft, nondistended, with normoactive bowel sounds. No bruits noted. Diffuse tenderness upon palpation. No rebound tenderness. Extremities: 2+ radial pulses bilaterally. 2+ posterior tibialis pulses bilaterally. Trace bilateral lower extremity edema. Varicose veins. No cyanosis. Results & Data Vital Signs (Past 12 Hours) Vital Signs Temp Pulse Resp BP Pulse Ox O2 Del Method 10/05/22 07:21 36.3 C L 61 16 153/57 H 98 Room Air Intake & Output 10/03/22 10/04/22 10/05/22 10/06/22 06:59 06:59 06:59 06:59 Intake Total 100 / 100 555 / 555 240 / 240 Balance 100 / 100 555 / 555 240 / 240 Weight 147 lb 4.301 oz Laboratory Results Laboratory Results - last 24 hr 10/04/22 10/04/22 10/04/22 12:58 14:26 14:26 WBC RBC Hgb Hct MCV MCH MCHC RDW Std Deviation RDW Coeff of Malinda Plt Count MPV Immature Gran % (Auto) Neut % (Auto) Lymph % (Auto) [place] % (Auto) Eos % (Auto) Baso % (Auto) Neut # (Auto) Lymph # (Auto) [place] # (Auto) Eos # (Auto) Baso # (Auto) Immature Gran # (Auto) Sodium Potassium Chloride Carbon Dioxide Anion Gap BUN Creatinine Est Cr Clr Drug Dosing Est GFR ( Amer) Est GFR (Non-Af Amer) BUN/Creatinine Ratio Glucose Calcium Magnesium Troponin I High Sens 4.3 Tumor Marker AFP Pending Carcinoembryonic Ag 3.3 H CA 19-9 Antigen Pending 10/05/22 10/05/22 06:00 06:00 WBC 6.76 RBC 3.56 L Hgb 11.3 L Hct 32.3 L MCV 90.7 MCH 31.7 MCHC 35.0 RDW Std Deviation 49.9 H RDW Coeff of Malinda 14.9 H Plt Count 222 MPV 11.0 Immature Gran % (Auto) 0.0 Neut % (Auto) 38.2 Lymph % (Auto) 46.9 [place] % (Auto) 11.7 Eos % (Auto) 2.5 Baso % (Auto) 0.7 Neut # (Auto) 2.58 Lymph # (Auto) 3.17 [place] # (Auto) 0.79 H Eos # (Auto) 0.17 Baso # (Auto) 0.05 Immature Gran # (Auto) 0.00 L Sodium 137 Potassium 3.2 L Chloride 99 Carbon Dioxide 34 H Anion Gap 4 BUN 12 Creatinine 0.88 Est Cr Clr Drug Dosing 52.1 Est GFR ( Amer) 73.5 Est GFR (Non-Af Amer) 63.4 BUN/Creatinine Ratio 13.6 Glucose 84 Calcium 8.5 L Magnesium 1.9 Troponin I High Sens Tumor Marker AFP Carcinoembryonic Ag CA 19-9 Antigen Diagnostic Findings Chart reviewed. Carcinoembryonic antigen is elevated. Mild anemia. Mild hypokalemia. Stable renal function. Noncontrast CT of chest, abdomen, pelvis: Suboptimal exam without oral and IV contrast per radiology. Clear lungs. No acute infectious or inflammatory findings identified in the abdomen or pelvis. Sigmoid diverticulosis. Medications Administered Current Inpatient Medications Acetaminophen (Acetaminophen 325 Mg Tab) 650 mg PO Q4H PRN PRN Reason: pain Stop: 11/02/22 20:40 Last Admin: 10/05/22 08:27 Dose: 650 mg Amiodarone HCl (Amiodarone 200 Mg Tab) 100 mg PO HS [facility] Stop: 11/02/22 20:59 Last Admin: 10/04/22 22:08 Dose: 100 mg Apixaban (Apixaban 5 Mg Tablet) 5 mg PO BID [facility] Stop: 11/02/22 20:59 Last Admin: 10/05/22 08:24 Dose: 5 mg Bumetanide (Bumetanide 1 Mg Tab) 2 mg PO DAILY [facility] Stop: 11/03/22 08:59 Last Admin: 10/04/22 08:46 Dose: 2 mg Buspirone HCl (Buspirone 5 Mg Tab) 5 mg PO BID [facility] Stop: 11/02/22 20:59 Last Admin: 10/05/22 08:24 Dose: 5 mg Cyanocobalamin (Cyanocobalamin (B-12) 500 Mcg Tablet) 500 mcg PO QAM [facility] Stop: 11/03/22 08:59 Last Admin: 10/05/22 08:24 Dose: 500 mcg Docusate Sodium (Docusate Sodium 100 Mg Cap) 200 mg PO BID [facility] Stop: 11/02/22 20:59 Last Admin: 10/05/22 08:24 Dose: 200 mg Fluticasone Propionate (Fluticasone Propionate Na Spr 16 Gm Btl) 2 sprays NA DAILY [facility] Stop: 11/03/22 08:59 Last Admin: 10/05/22 08:24 Dose: 2 sprays Memantine (Memantine Hcl 10 Mg Tab) 10 mg PO BID [facility] Stop: 11/02/22 20:59 Last Admin: 10/05/22 08:24 Dose: 10 mg Mirtazapine (Mirtazapine Tab 15 Mg Tab) 60 mg PO HS [facility] Stop: 11/02/22 20:59 Last Admin: 10/04/22 22:09 Dose: 60 mg Nitroglycerin (Nitroglycerin Sl 0.4 Mg/Tab Tab) 0.4 mg SL Q5M PRN PRN Reason: chest pain Stop: 11/02/22 20:40 Pantoprazole Sodium (Pantoprazole 40 Mg Tab) 40 mg PO DAILYBB [facility] Stop: 11/03/22 06:29 Last Admin: 07/05/23 05:29 Dose: 40 mg Rosuvastatin Calcium (Rosuvastatin Calcium 20 Mg Tab) 40 mg PO HS [facility] Stop: 11/02/22 20:59 Last Admin: 10/04/22 22:10 Dose: 40 mg PG Care Time/CCT Total # of Minutes Spent Total Time Spent with Patient: Total time spent is greater than 50% in coordination of care (as documented) at patient's floor/unit and/or counseling patient: Coding Level of Care Code 54020 SUB INP/OBS CARE 2/35MIN Diagnoses Chronic heart failure with preserved ejection fraction I50.32 Generalized weakness R53.1 CAD (coronary artery disease) I25.10 Chest pain R07.9 Chest pain type: unspecified Paroxysmal atrial fibrillation I48.0 Near syncope R55 (4) Chest pain Chest pain type: unspecified Qualified Code(s): R07.9 - Chest pain, unspecified
[2022-10-05] MEDS ORDERED: POTASSIUM CHLORIDE CRTAB 20 MEQ TABCR PO STA (19:26)
--- NOTE | 2022-10-05 19:58 | Hospitalist Progress Note ---
Date of Service October 05, 2022 Assessment & Plan (1) Generalized weakness: Plan: Acute on chronic issue which is multifactorial at this time. -I think she was overdiuresed, complains of dizziness upon standing-Now resolved with holding Bumex Mildly anemic but would not likely contribute to weakness, thyroid function normal Has had 30 pounds of weight loss but suspect due to depression She also recently was increased on her Remeron to 30 mg in the evening-the home med rec curate was wrong at 60 mg-I have reduced the dose back to 30 mg - ECHO EF 60-65% - PT/OT consultation Appreciated-plan for home with home health appreciate cardiology consultation-plan to restart Bumex 2 mg daily tomorrow (2) Chronic diastolic CHF (congestive heart failure): Plan: -She appears compensated, probably even a little overdiuresed on admission which is now improved with holding Bumex - ECHO EF 60-65% - restart Bumex tomorrow - Cardiology consultation appreciated (3) Depression with anxiety: Plan: patient reports ongoing mood issues and financial issues, her has been living with them after 2 years in psychiatric institutions and this is stressful Remeron was recently increased to 30 mg at bedtime she has lost 30 pounds of weight in the last year which I suspect is from this as work-up for malignancy has been negative including EGD, colonoscopy, CT of the chest/abdomen/pelvis. CEA mildly elevated but unclear significance Continue to follow-up outpatient (4) Sleep apnea: Plan: non compliant with CPAP as she can't get it back on in the middle of the night (5) Afib: Plan: Paroxysmal afib currently in Sinus - Continue with amiodarone - Continue with Eliquis (6) Atypical chest pain: Plan: complains of chest pressure, non radiating, not exacerbated by exercise Cardiology on consult-None cardiac No ST changes on EKG, trop normal (7) Weight loss: Plan: as noted above Plan Disposition-continue hospitalization, but likely discharged home with home health tomorrow if no longer orthostatic after restarting Bumex Admission and Anticipated Discharge Date Admission Date: October 05, 2022 Subjective Patient reports feeling better, not lightheaded. She is moving her bowels and eating, no abdominal pain.She still complains of a chronic cough but it is improved from previous admission I discussed her care with cardiology and her daughter on the phone. Physical Exam Constitutional: WD/WN, vitals as above Respiratory: normal respiratory effort, lungs clear to auscultation Cardiovascular: RRR, no murmur, no edema (Except trace lower extremity edema) Gastrointestinal (Abdomen): normal bowel sounds, soft, nontender, no hepatosplenomegaly Neurologic: PERRL, EOMI, accommodation nl, no face palsy, no dysarthria Psychiatric: A+Ox3, euthymic affect Results & Data Results & Data Vital Signs (Past 12 Hours) Vital Signs Temp Pulse Resp BP Pulse Ox O2 Del Method 10/05/22 15:03 36.3 C L 58 L 16 117/55 L 98 Room Air Laboratory Results CBC, BMP, TSH reviewed CEA reviewed PG Care Time/CCT Total # of Minutes Spent Total Time Spent with Patient: Total time spent is greater than 50% in coordination of care (as documented) at patient's floor/unit and/or counseling patient: Coding Level of Care Code 37389 SUB INP/OBS CARE 2/35MIN Diagnoses Generalized weakness R53.1 Chronic diastolic CHF (congestive heart failure) I50.32 Depression with anxiety F41.8 Sleep apnea G47.30 Afib I48.91 Atrial fibrillation type: unspecified Atypical chest pain R07.89 Weight loss R63.4 (5) Afib Atrial fibrillation type: unspecified Qualified Code(s): I48.91 - Unspecified atrial fibrillation
[2022-10-05] MEDS: AMIODARONE 200 MG TAB PO SCH (20:36)
[2022-10-05] MEDS: ROSUVASTATIN CALCIUM 20 MG TAB PO SCH (20:37)
[2022-10-05] MEDS ORDERED: MIRTAZAPINE TAB 15 MG TAB PO SCH (21:00)
[2022-10-06] MEDS: PANTOprazole 40 MG TAB PO SCH (05:42)
[2022-10-06 06:50] LABS: Hemoglobin 11.3 g/dl (12.0-16.0); Mean Corpuscular Hemoglobin 32.3 pg (25.0-34.0); Mean Corpuscular Hgb Conc 35.3 g/dL (32.0-36.0); Mean Corpuscular Volume 91.4 fL (80.0-100.0); Mean Platelet Volume 11.2 fL (9.4-12.4); Platelet Count 210 K/uL (130-400); RDW Coefficient of Variation 15.1 % (11.5-14.5); RDW Standard Deviation 50.5 fL (36.4-46.3); White Blood Count 5.25 K/ul (4.8-10.8)
--- NOTE | 2022-10-06 07:06 | Electrocardiogram Report ---
Test Reason : Blood Pressure : / mmHG Vent. Rate : 059 BPM Atrial Rate : 059 BPM P-R Int : 152 ms QRS Dur : 080 ms QT Int : 420 ms P-R-T Axes : 093 059 069 degrees QTc Int : 415 ms Poor data quality, interpretation may be adversely affected Sinus bradycardia Otherwise normal ECG When compared with ECG of 27-SEP-2022 14:26, No significant change was found Confirmed by Santino Delacruz ([id number]) on 10/06/2022 7:06:16 AM Referred By: Confirmed By:Santino Delacruz
[2022-10-06 07:14] LABS: BUN Creatinine Ratio 14.9 (10-20); Calcium 8.5 mg/dl (8.6-10.3); Creatinine Clr Calc Pharmacy 61.9 ml/min; Est GFR (African American) 90.6 ml/min; Est GFR (Non-African American) 78.1 ml/min; Potassium 3.8 mmol/L (3.5-5.1)
[2022-10-06 07:22] LABS: Basophils # (auto) 0.07 K/uL (0-0.2); Basophils % (auto) 1.3 %; Echinocytes 1+; Eosinophils # (auto) 0.18 K/uL (0-0.50); Eosinophils % (auto) 3.4 %; Immature Granulocytes # (auto) 0.01 K/uL (0.01-0.20); Immature Granulocytes % (auto) 0.2 %; Lymphocytes # (auto) 2.63 K/uL (1.2-3.4); Lymphocytes % (auto) 50.1 %; Monocytes # (auto) 0.66 K/uL (0.11-0.59); Monocytes % (auto) 12.6 %; Neutrophils % (auto) 32.4 %
[2022-10-06] MEDS: FLUTICASONE PROPIONATE NA SPR 16 GM BTL SCH (08:35)
[2022-10-06] MEDS: DOCUSATE SODIUM 100 MG CAP PO SCH (08:36)
[2022-10-06] MEDS: MEMANTINE HCL 10 MG TAB PO SCH (08:36)
[2022-10-06] MEDS: BUMETANIDE 1 MG TAB PO SCH (08:36)
[2022-10-06] MEDS: CYANOCOBALAMIN (B-12) 500 MCG TABLET PO SCH (08:36)
[2022-10-06] MEDS: busPIRone 5 MG TAB PO SCH (08:37)
[2022-10-06] MEDS: APIXABAN 5 MG TABLET PO SCH (08:37)
[2022-10-06] MEDS: ACETAMINOPHEN 325 MG TAB PO PRN (08:38)
[2022-10-06 11:57] LABS: AFP Tumor Marker Serum 7.9 ng/mL; Cancer Antigen 19-9 <3 U/mL (<34)
--- NOTE | 2022-10-06 13:11 | Discharge Summary ---
Discharge Summary Date of Service October 06, 2022 Notes For Next Care Provider Medication Changes From Visit Decreased KCl to 20 meq po bid Admission HPI Per Admitting Provider 77 YOF with past medical history of: HFpEF, hyponatremia, CAD, chronic atypical chest pain, HLD, GI bleed, HTN, AASHISH, Paroxysmal Afib, chronic anticoagulation. Patient brought to the EMD today by her daughter for concerns of increase in fatigue, dyspnea, dizziness when standing, and decrease functionality at home. The patient has been followed closely by the CHF clinic with recent adjustment to her diuretics. The patient lives at home by herself and takes care of her "who is way worse than I am", and is dependant on her daughter for ensuring medications are taken and partially for meal preparation. The patient states that she has been getting dizzy when getting up and walking, but notes that it is less so when she sits on the edge of the chair before raising it to stand. She voices difficulty getting to and from her bathroom secondary to fatigue and dyspnea- daughter reports that her bathroom is 30 paces from her chair. The patient does not use any ambulatory aid. She denies any worsening of her chest pain and feels that her leg swelling is greatly improved from her Bumex adjustment made a week ago. On evaluation the patient is in NSR-sinus bradycardia, BP adequate and skin is warm and dry. She appears that her volume status is adequate and CXR and BNP support this. Overall the patient is with chronic health problem that she understands that she is having trouble keeping up with, but does not want to go to a facility and wants to maintain her independence as much as she can but does endorse she would like help in taking care of herself and meals. Her daughter is her primary agent and is feeling overwhelmed with this as well. Patient will be observed to repeat her ECHO to make sure no change in her cardiac function or valve function has occurred, i believe she is medically optimized, PT/OT evaluation and case management consultation for evaluation of assistance at home. CODE: DNR/DNI COVID: Negative Principal Dx & Hospital Course #1 = Principal Diagnosis (1) Orthostasis: some from diuresis, some from chronic venous stasis recommend compression stockings-suggest looser stockings so she would be more compliant recommend pumping of legs prior to standing ok to continue Bumex 2mg daily or else will have volume overload (2) Generalized weakness: Acute on chronic issue which is multifactorial at this time. -I think she was overdiuresed, complains of dizziness upon standing-Now resolved with holding Bumex. Restarted BUmex 2mg po once daily and still with mildly positive orthostatics with minimal symptoms (has brief chest tightness with standing that resolved on its own) Mildly anemic but would not likely contribute to weakness, thyroid function normal Has had 30 pounds of weight loss but suspect due to depression She also recently was increased on her Remeron to 30 mg in the evening-the home med rec curate was wrong at 60 mg-I have reduced the dose back to 30 mg - ECHO EF 60-65% - PT/OT consultation Appreciated-plan for home with home health. SHe was ambulating independently multiple times around the [place] on day of discharge appreciate cardiology consultation-plan to restart Bumex 2 mg daily and f/u in CHF clinic (3) Chronic diastolic CHF (congestive heart failure): -She appears compensated, probably even a little over diuresed on admission which is now improved with holding Bumex - ECHO EF 60-65% - restart Bumex 2mg po daily - Cardiology consultation appreciated (4) Depression with anxiety: patient reports ongoing mood issues and financial issues, her has been living with them after 2 years in psychiatric institutions and this is stressful Remeron was recently increased to 30 mg at bedtime she has lost 30 pounds of weight in the last year which I suspect is from this as work-up for malignancy has been negative including EGD, colonoscopy, CT of the chest/abdomen/pelvis. CEA and AFP mildly elevated but unclear significance Continue to follow-up outpatient and suggest she see Psychiatry (5) Sleep apnea: non compliant with CPAP as she can't get it back on in the middle of the night (6) Afib: Paroxysmal afib currently in Sinus - Continue with amiodarone - Continue with Eliquis (7) Atypical chest pain: complains of chest pressure, non radiating, not exacerbated by exercise Cardiology on consult-Non cardiac No ST changes on EKG, trop normal (8) Weight loss: as noted above, with CT CHest/abd/pel negative but done without contrast CEA and AFP mildly elevated, CA 19-9 negative--> tumor markers ordered by previous provider, unclear significance as had negative EGD and colonoscopy within the last year Discussed with Dr. Olivas of GI. Plan to see GI as an outpt Plan Disposition-dc to home with home health Discussed care with Cardiology, GI, and daughter on day of discharge Discharge Exam Constitutional WD/WN, vitals as above Respiratory normal respiratory effort, lungs clear to auscultation Cardiovascular RRR, no murmur, no edema (Except trace lower extremity edema) Gastrointestinal (Abdomen) normal bowel sounds, soft, nontender, no hepatosplenomegaly Neurologic PERRL, EOMI, accommodation nl, no face palsy, no dysarthria Psychiatric A+Ox3, euthymic affect Updated Medication List Medication Instructions Recorded Confirmed Type docusate sodium 100 mg capsule 200 mg PO BID 04/15/18 10/03/22 History calcium carbonate 600 mg calcium 1,200 mg PO QAM 06/08/19 10/03/22 History (1,500 mg) tablet (Calcium) cholecalciferol (vitamin D3) 25 1,000 unit PO QAM 06/08/19 10/03/22 History mcg (1,000 unit) capsule (Vitamin D3) nitroglycerin 0.4 mg sublingual 0.4 mg sublingual Q5M PRN chest 09/25/21 10/03/22 Rx tablet (Nitrostat) pain #20 tabs rosuvastatin 40 mg tablet (Crestor) 40 mg PO HS #90 tabs 02/21/22 10/03/22 Rx amiodarone 200 mg tablet 100 mg PO HS #30 tabs 03/04/22 10/03/22 Rx apixaban 5 mg tablet (Eliquis) 5 mg PO BID #180 tabs 04/29/22 10/03/22 Rx acetaminophen 325 mg tablet 650 mg PO Q4H PRN pain #60 tabs 05/30/22 10/03/22 Rx buspirone 5 mg tablet 5 mg PO BID #90 tabs 06/13/22 10/03/22 Rx memantine 10 mg tablet (Namenda) 10 mg PO BID #180 tabs 07/11/22 10/03/22 Rx estradiol 0.075 mg/24 hr weekly 0.075 mg transdermal WK 07/28/22 10/03/22 History transdermal patch pantoprazole 40 mg tablet,delayed 40 mg PO DAILYBB 07/28/22 10/03/22 History release ascorbic acid (vitamin C) 500 mg 500 mg PO DAILY 09/03/22 10/03/22 History tablet (Vitamin C) cyanocobalamin (vitamin B-12) 500 500 mcg PO QAM 09/03/22 10/03/22 History mcg tablet (Vitamin B-12) fluticasone propionate 50 2 spray NA DAILY #16 grams 09/04/22 10/03/22 Rx mcg/actuation nasal spray,suspension sodium chloride 0.65 % nasal spray 1 spray NA TID #44 mL 09/04/22 10/03/22 Rx aerosol (Saline Mist) bumetanide 2 mg tablet 2 mg PO DAILY 09/27/22 10/03/22 History mirtazapine 30 mg tablet 30 mg PO HS 09/27/22 10/05/22 History potassium chloride 20 mEq 20 meq PO QAM #30 tabs 10/06/22 10/03/22 Rx tablet,extended release Hospital Stay Data Consultations 10/03/22 17:34 ED Decision to Admit Stat 10/03/22 20:41 Consult Cardiology Routine Diagnostic Imagining Performed 10/03/22 15:54 CT head/brain wo con Stat 10/04/22 14:17 CT Abd and Pelvis [CT abd pelvis wo con] Routine CT chest diagnostic wo con Routine Pending Results Patient Have Any Pending Studies at Discharge: No Discharge Instructions Given to Patient (Per Discharging Provider) You were admitted for fatigue and lightheadedness with standing. Some of the fatigue is likely from orthostasis which is when your blood pressure drops with standing. Your Bumex dose was held and then restarted at only 2mg once a day. It is also important for you to wear compression stockings every day. Before you stand up, make sure you pump your legs to get the blood flow going before you stand up. Some of your fatigue could also be from the recent increase in dose of your mirtazapine. This should improve with time as you continue to take it. Follow up with Dr. Olivas from Gastroenterology regarding your weight loss and slightly abnormal tumor marker blood tests (CEA, AFP). Some of your weight loss may be from mood issues. The mirtazapine should help with this, but you should consider seeing a Psychiatrist as an outpatient to further address your mood. Total Time Total Time Spent Total Time Spent (In Minutes): 40 min Coding Level of Care Code 14563 INP/OBS DISCH >30 MIN Diagnoses Orthostasis I95.1 Generalized weakness R53.1 Chronic diastolic CHF (congestive heart failure) I50.32 Depression with anxiety F41.8 Sleep apnea G47.30 Afib I48.91 Atrial fibrillation type: unspecified Atypical chest pain R07.89 Weight loss R63.4
== END 2022-10-06 13:48 | disposition home health service (06) | DRG 312 ==
LOC: 3W 12:14 → ED 12:14 → SUATTDRO 18:18 → 3W 20:09 → SUATTDRO 10-05 16:16

== ENCOUNTER 2022-10-27 17:14 | Inpatient (IN) ==
[2022-10-27] MEDS ORDERED: CHLORHEXIDINE GLUCONATE 4% SOL 4OZ BTL EXT ONE (17:21)
[2022-10-27] MEDS ORDERED: ACETAMINOPHEN 1,000 MG/100 ML VIAL IV STA (18:27)
--- NOTE | 2022-10-27 18:27 | Emergency Department Note ---
History of Present Illness General Chief complaint: Fall Stated complaint: GROUND LEVEL FALL Time Seen by Provider: 10/27/22 17:44 History of Present Illness Maximum Pain Intensity: 7 77-year-old female who presents emergency department via EMS accompanied by daughter for evaluation s/p fall. Patient states she was walking into her PCP office and stepped up on thecurb and her toe caught causing her to fall forward. She hit the left side of her face on the concrete. There was no loss of consciousness. She is on Eliquis twice daily for A-fib. She notes a headache mostly over the area of impact above the left eyebrow. She denies dizziness/lightheadedness, visual changes, memory loss or confusion, neck pain or back pain. She has abrasions to the left cheek, nose and upper lip as well as to her left and right third and fourth fingertips. Her fingertips burn. She does report substernal chest pain since her fall. She denies shortness of breath or abdominal pain. No extremity pain. Of note, daughter states they were going to her of her PCP after referral from the home nursing due to low blood pressure on home blood pressure cuff. Home Medications Medication Instructions Recorded Confirmed Type docusate sodium 100 mg capsule 200 mg PO BID 04/15/18 10/14/22 History calcium carbonate 600 mg calcium 1,200 mg PO QAM 06/08/19 10/14/22 History (1,500 mg) tablet (Calcium) cholecalciferol (vitamin D3) 25 1,000 unit PO QAM 06/08/19 10/14/22 History mcg (1,000 unit) capsule (Vitamin D3) nitroglycerin 0.4 mg sublingual 0.4 mg sublingual Q5M PRN chest 09/25/21 10/14/22 Rx tablet (Nitrostat) pain #20 tabs rosuvastatin 40 mg tablet (Crestor) 40 mg PO HS #90 tabs 02/21/22 10/14/22 Rx amiodarone 200 mg tablet 100 mg PO HS #30 tabs 03/04/22 10/14/22 Rx apixaban 5 mg tablet (Eliquis) 5 mg PO BID #180 tabs 04/29/22 10/14/22 Rx acetaminophen 325 mg tablet 650 mg PO Q4H PRN pain #60 tabs 05/30/22 10/14/22 Rx buspirone 5 mg tablet 5 mg PO BID #90 tabs 06/13/22 10/14/22 Rx memantine 10 mg tablet (Namenda) 10 mg PO BID #180 tabs 07/11/22 10/14/22 Rx estradiol 0.075 mg/24 hr weekly 0.075 mg transdermal WK 07/28/22 10/14/22 History transdermal patch pantoprazole 40 mg tablet,delayed 40 mg PO DAILYBB 07/28/22 10/14/22 History release ascorbic acid (vitamin C) 500 mg 500 mg PO DAILY 09/03/22 10/14/22 History tablet (Vitamin C) cyanocobalamin (vitamin B-12) 500 500 mcg PO QAM 09/03/22 10/14/22 History mcg tablet (Vitamin B-12) fluticasone propionate 50 2 spray NA DAILY #16 grams 09/04/22 10/14/22 Rx mcg/actuation nasal spray,suspension sodium chloride 0.65 % nasal spray 1 spray NA TID #44 mL 09/04/22 10/14/22 Rx aerosol (Saline Mist) bumetanide 2 mg tablet 2 mg PO DAILY 09/27/22 10/14/22 History mirtazapine 30 mg tablet 30 mg PO HS 09/27/22 10/14/22 History potassium chloride 20 mEq 20 meq PO QAM #30 tabs 10/06/22 10/14/22 Rx tablet,extended release Allergies Allergy/AdvReac Type Severity Reaction Status Date / Time gluten Allergy Intermediate Celiac Verified 10/14/22 08:57 disease latex Allergy Mild Rash Verified 10/14/22 08:57 Fish Containing Products Allergy Verified 10/14/22 08:57 shellfish derived Allergy Verified 10/14/22 08:57 amoxicillin AdvReac Intermediate Yeast Verified 10/14/22 08:57 infection cefdinir AdvReac Intermediate nausea Verified 10/14/22 08:57 Cephalosporins AdvReac Intermediate Yeast Verified 10/14/22 08:57 infection clavulanic acid AdvReac Intermediate Yeast Verified 10/14/22 08:57 infection prednisone AdvReac Intermediate Anxiety Verified 10/14/22 08:57 Past Med/Surg History Medical History Acute blood loss anemia (ABLA) Acute hyponatremia Anemia RECEIVED 2 UNITS [facility] 04/2021 RECENT ADMISSION Atypical chest pain CAD (coronary artery disease) Medically managed by cardiology NSTEMI 07/27/20- cath demonstrated small branch vessel disease involving small OM to, not amenable to intervention. CD (celiac disease) "Does not" follow gluten-free diet Chest pressure Chronic diastolic congestive heart failure Constipation Degenerative disc disease Diastolic CHF Diverticulitis 2013 Dyslipidemia GI bleed reason for Endoscopy History of paroxysmal supraventricular tachycardia with atrial tachycardia Hypercholesterolemia Hypertension Hypokalemia Low back pain with sciatica Nausea & vomiting Near syncope Non-ST elevation ME (NSTEMI) 07/27/20 Obstructive sleep apnea Ocular migraine Open wound of buttock Orthostasis Paroxysmal atrial fibrillation Sleep apnea CPAP Syncope and collapse Tremor Vertigo Surgical History History of arthroscopy of right shoulder RCR History of cardiac cath 2015, 07/28/20 (MS) > no stents History of cardioversion x2, most recent 04/2019 History of carpal tunnel release R/L History of cataract surgery R/L History of cholecystectomy History of colonoscopy History of esophagogastroduodenoscopy (EGD) History of foot surgery R/L feet "to straighten toes" History of fracture of left shoulder Plate + screws History of hysterectomy JOANNA + BSO History of incision and drainage Right foot History of tonsillectomy History of total knee replacement Left x2, right x1 S/P transesophageal echocardiogram (JOHANA) Status post placement of implantable loop recorder Implanted 12/2019 - Follows Dr. Yoo > to see Dr. Powers this afternoon for check Family History Mother Family hx of colon cancer Colorectal cancer Brother Prostate cancer Family history of diabetes mellitus Father Dissecting aortic aneurysm Myocardial infarction Grandmother (Maternal) Stroke Other No family history of adverse response to anesthesia Denies family history of Ovarian cancer Breast cancer Social History Smoking Status: Former smoker Tobacco Type: Cigarettes Age Started Using Tobacco: 19; Age Quit Using Tobacco: 27; packs per day: 0.25; Second Hand Exposure: No; Do You Dip or Chew Tobacco: No; Hx Alcohol Use: No Hx Substance Use: No Preferred Language: Micronesian Communication Ability: Effective Visual Impairment: No Limitations Hearing Ability: Normal Shipping And Receiving Clerk Required: No Beliefs That Will Affect Care: None marital status: Current Living Situation: Spouse Current Living Situation Comment: home with 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; 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[employer]; 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 Feels Safe at Home: Yes Childhood Exposure to Second-Hand Smoke: No Dental Care, Regularly: Yes Physical Activity Frequency: 3-4 Times per Week Seatbelt Use: always Sunscreen Use: Yes Assistive Devices: Cane and Walker Physical Exam Vital Signs Vital Signs - 24 hr 10/27/22 17:25 10/27/22 19:09 10/27/22 20:49 Temperature 36.7 C Temperature Source Oral Pulse Rate 64 59 L Pulse Rate [Apical] 65 Pulse Rhythm Regular Pulse Strength Normal Respiratory Rate 20 18 Respiratory Effort / Characteristics Non-Labored Spontaneous Respiratory Depth Normal Respiratory Pattern Regular Blood Pressure 153/62 H Blood Pressure [Right Arm] 118/66 Blood Pressure Mean 92 Blood Pressure Mean [Right Arm] 83 Blood Pressure Position Sitting Pulse Oximetry 95 98 Oxygen Delivery Method Room Air Sepsis Recent Fever Within 48 Hours No Sepsis New/Unexplained Change in Mental Status No Sepsis Action Taken by Nursing No Action Required Constitutional: alert and oriented x3. no acute distress. nontoxic HEENT: 3 cm laceration above left eyebrow with minimal oozing blood. No obvious deep tissue involvement or foreign body. normal conjunctiva.PERRLA. EOM's grossly intact. No altamirano signs or raccoon eyes. Abrasion to bridge of nose. No active bleeding. TMs pearly taylor without effusion. No blood within the ear canals. Abrasion to mid upper lip. Pharynx pink without exudate. Tonsils non enlarged. Mucus membranes moist Neck: neck is supple, nontender. Midline C-spine nontender. Neck range of motion intact Respiratory: lungs are clear to auscultation without wheezes, rhonchi, or rales bilaterally. equal chest rise. normal respiratory effort, no accessory muscle use. No chest wall or rib tenderness. Cardiovascular: normal heart sounds without murmur. regular rate and rhythm. GI: abdomen is soft, nontender. Nondistended. Right upper quadrant tenderness to palpation. No palpable masses. No rebound tenderness or guarding. No CVA tenderness MSK: Moves all 4 extremities spontaneously. Mild tenderness to palpation of left second metacarpal bone. No obvious bony deformity. Abrasions to the left and right second and third digits, nontender, no bony deformity. Lower extremities nontender with normal range of motion Peripheral vascular: extremities warm and well perfused with palpable pulses. Neuro: without focal neuro deficits. Answers questions appropriately, follows commands. GCS 15. CNII-XII intact. Speech clear, tongue midline, without facial droop. Strength equal throughout all for extremities. Psych:appropriate mood and affect. Procedures Free Text Procedures Laceration Repair Patient was seen and evaluated by myself. Risks and benefits of performing primary wound closure versus no repair were discussed with the patient who verbalizes understanding. Verbal consent was obtained prior to performing the procedure. 4 cc of 1% lidocaine was used to perform anesthetization within the wound bed. The wound was cleansed and prepped in the typical sterile fashion u tilizing normal saline and Betadine. The wound was sterilely draped. Once proper anesthetization was established, the wound was further examined and demonstrated 3 cm superficial laceration to the left supraorbital/eyebrow region. There is no deep tissue involvement. No foreign body. No gross contamination. The wound was copiously irrigated with normal saline and Betadine. The wound was closed using 7 simple, 6-0 nylon sutures with the wound edges being well approximated. Patient tolerated the procedure well. No complications were met. The wound was cleansed and dressed with a Bacitracin dressing. Course Administered Medications Discontinued Medications Chlorhexidine Gluconate (Chlorhexidine Gluconate 4% Sofia 4oz Btl) Confirm Administered Dose 1 btl EXT .STK-MED ONE Stop: 10/27/22 17:22 Last Admin: 10/27/22 20:31 Dose: 1 btl Documented By: [id number] Acetaminophen (Ofirmev) 1,000 mg in 100 mls @ 400 mls/hr IV NOW STA Stop: 10/27/22 18:41 Last Infusion: 10/27/22 19:14 Dose: 0 mls/hr Documented By: Admin: 10/27/22 18:58 Dose: 400 mls/hr Documented By: ADILSON Ioversol (Optiray 320 100ml) 90 ml IV ONCE ONE Stop: 10/27/22 18:39 Last Admin: 10/27/22 18:38 Dose: 90 ml Documented By: BETH Lidocaine/Epinephrine (Lidocaine 1%/Epinephrine 1:100,000 50 Ml Vial) 20 ml INFIL NOW ONE Stop: 10/27/22 19:11 Last Admin: 10/27/22 20:31 Dose: 20 ml Documented By: [id number] Potassium Chloride (Potassium Chloride Crtab 20 Meq Tabcr) 40 meq PO NOW STA Stop: 10/27/22 19:45 Last Admin: 10/27/22 20:30 Dose: 40 meq Documented By: AL Medical Decision Making Differential Diagnosis Fracture, dislocation, contusion, intra-abdominal, pneumothorax, intrathoracic, intracranial, neurologic, compartment syndrome, rhabdomyolysis, as well as other pathologies. Laboratory Data Attestation: I reviewed the patient's lab results. 10/27/22 18:23 10/27/22 18:23 Lab Results 10/27/22 10/27/22 Range/Units 18:23 18:23 WBC 8.66 (4.8-10.8) K/ul RBC 3.64 L (4.20-5.40) M/uL Hgb 11.8 L (12.0-16.0) g/dl Hct 33.6 L (37.0-47.0) % MCV 92.3 (80.0-100.0) fL MCH 32.4 (25.0-34.0) pg MCHC 35.1 (32.0-36.0) g/dL RDW Std Deviation 47.9 H (36.4-46.3) fL RDW Coeff of Malinda 14.0 (11.5-14.5) % Plt Count 214 (130-400) K/uL MPV 11.2 (9.4-12.4) fL Immature Gran % (Auto) 0.2 % Neut % (Auto) 44.6 % Lymph % (Auto) 41.3 % Sebastian % (Auto) 12.4 % Eos % (Auto) 0.9 % Baso % (Auto) 0.6 % Neut # (Auto) 3.86 (1.40-6.50) K/uL Lymph # (Auto) 3.58 H (1.2-3.4) K/uL Sebastian # (Auto) 1.07 H (0.11-0.59) K/uL Eos # (Auto) 0.08 (0-0.50) K/uL Baso # (Auto) 0.05 (0-0.2) K/uL Immature Gran # (Auto) 0.02 (0.01-0.20) K/uL Sodium 139 (136-145) mmol/L Potassium 2.9 L (3.5-5.1) mmol/L Chloride 96 L (98-107) mmol/L Carbon Dioxide 36 H (21-32) mmol/L Anion Gap 7 (3-11) BUN 13 (6-23) mg/dl Creatinine 1.10 (0.6-1.2) mg/dl Est Cr Clr Drug Dosing 43.2 ml/min Est GFR ( Amer) 56.1 ml/min Est GFR (Non-Af Amer) 48.4 ml/min BUN/Creatinine Ratio 11.8 (10-20) Glucose 79 (70-99(Fasting)) mg/dl Calcium 9.4 (8.6-10.3) mg/dl Total Bilirubin 0.5 (0.2-1.0) mg/dl AST 24 (13-39) U/L ALT 13 (7-52) U/L Alkaline Phosphatase 82 (34-104) U/L Troponin I High Sens 7.5 (0-14) pg/ml Total Protein 7.0 (6.0-8.3) gm/dl Albumin 4.1 (3.4-5.0) gm/dl Globulin 2.9 (2.5-4.0) gm/dl Albumin/Globulin Ratio 1.4 (0.9-2) Lipase 9 L (11-82) U/L Imaging Data Radiologist's Impression: Cervical Spine CT 10/27/22 17:35 Exam(s): CT C SPINE EXAM: CT Cervical Spine Without Intravenous Contrast CLINICAL HISTORY: Reason for exam: Fall, facial and head injuries; on Eliquis.. TECHNIQUE: Axial computed tomography images of the cervical spine without intravenous contrast. CTDI is 37.12 mGy and DLP is 546.36 mGy-cm. Automated exposure control was utilized for the study. A dose lowering technique was utilized adhering to the principles of ALARA. COMPARISON: No relevant prior studies available. FINDINGS: The vertebral body heights are maintained. The craniocervical junction is intact. The atlanto-dens interval is maintained. The dens is intact. There is no spondylolisthesis. Multilevel cervical spondylosis and degenerative disc disease. Straightening of the cervical lordosis. The unenhanced neck soft tissues are grossly unremarkable. The visualized lung apices are grossly clear. IMPRESSION: No acute fracture or subluxation of the cervical spine. Electronically signed by: Hesham Beltran MD 10/27/22 20:[address] 10/27/22 17:35 Exam(s): CT FACIAL Without Contrast EXAM: CT Maxillofacial Without Intravenous Contrast CLINICAL HISTORY: Reason for exam: Fall, facial and head injuries; on Eliquis.. TECHNIQUE: Axial computed tomography images of the face without intravenous contrast. CTDI is 37.12 mGy and DLP is 546.36 mGy-cm. Automated exposure control was utilized for the study. A dose lowering technique was utilized adhering to the principles of ALARA. COMPARISON: No relevant prior studies available. FINDINGS: The mandible is intact. Intact maxillary alveolus. The orbital rims and floors are intact. The intraorbital contents are grossly unremarkable. LEFT supraorbital laceration. Intact nasal bones, nasal septum, and maxillary spines. The zygomatic arches and pterygoid processes are intact. IMPRESSION: No facial bone fracture. LEFT supraorbital laceration. Electronically signed by: Hesham Beltran MD 10/27/22 20:[address] 10/27/22 17:35 Exam(s): CT HEAD Without Contrast EXAM: CT Head Without Intravenous Contrast CLINICAL HISTORY: Reason for exam: Fall, facial and head injuries; on Eliquis.. TECHNIQUE: Axial computed tomography images of the head/brain without intravenous contrast. CTDI is 37.12 mGy and DLP is 546.36 mGy-cm. Automated exposure control was utilized for the study. A dose lowering technique was utilized adhering to the principles of ALARA. COMPARISON: No relevant prior studies available. FINDINGS: No acute intracranial hemorrhage. No midline shift or mass effect. The territorial taylor-white matter differentiation is maintained throughout. Age-related cerebral volume loss. Periventricular and subcortical white matter hypoattenuation, consistent with chronic microangiopathy. The visualized orbits appear grossly unremarkable. The calvarium is intact. LEFT supraorbital laceration. The visualized paranasal sinuses and mastoid air cells are grossly clear. IMPRESSION: No acute intracranial hemorrhage, midline shift, or mass effect. LEFT supraorbital laceration. Electronically signed by: Hesham Beltran MD 10/27/22 21:18 PM Abdomen/Pelvis CT 10/27/22 18:03 Exam(s): CT ABDOMEN + PELVIS With Contrast IV Amt: 90ML OPTIRAY 320 EXAM: CT Abdomen and Pelvis With Intravenous Contrast CLINICAL HISTORY: Reason for exam: RUQ pain s/p fall. TECHNIQUE: Axial computed tomography images of the abdomen and pelvis with intravenous contrast. CTDI is 18.48 mGy and DLP is 790.89 mGy-cm. Automated exposure control was utilized for the study. A dose lowering technique was utilized adhering to the principles of ALARA. CONTRAST: Patient received 90ML OPTIRAY 320 of IV contrast COMPARISON: No relevant prior studies available. FINDINGS: Lung bases: Unremarkable. No mass. No consolidation. ABDOMEN: Liver: Unremarkable. No mass. Gallbladder and bile ducts: Cholecystectomy. No ductal dilation. Pancreas: Unremarkable. No mass. No ductal dilation. Spleen: Unremarkable. No splenomegaly. Adrenals: Unremarkable. No mass. Kidneys and ureters: Unremarkable. No hydronephrosis or delayed nephrogram. Stomach and bowel: Moderate diverticulosis, without acute diverticulitis. No small bowel obstruction. No free air. PELVIS: Appendix: No findings to suggest acute appendicitis. Bladder: Decompressed urinary bladder. Reproductive: Unremarkable as visualized. ABDOMEN and PELVIS: Intraperitoneal space: See above. Bones/joints: Degenerative changes of the spine. No acute fracture. No dislocation. Soft tissues: Unremarkable. Vasculature: Atherosclerotic changes of the aorta. This is the IVC, correlate for reason of dehydration. No abdominal aortic aneurysm. Lymph nodes: Unremarkable. No enlarged lymph nodes. IMPRESSION: Moderate diverticulosis, without acute diverticulitis. No small bowel obstruction. No free air. No acute fractures. Electronically signed by: Hesham Beltran MD 10/27/22 20:12 PM MDM Narrative 77-year-old female who presents to the emergency department accompanied by daughter for evaluation s/p mechanical fall with head injury on anticoagulation. Review of pertinent visits and past medical history performed. Vital signs in ED stable, afebrile. On exam, patient is nontoxic-appearing in no acute distress. She is neurologically intact without focal deficits. She did hit her head and sustained laceration to the left eyebrow as well as abrasions to the bridge of her nose, left cheek, upper lip as well as second and third fingertips on bilateral hands. Physical is exam was otherwise unremarkable. Left eyebrow laceration did require formal repair. Please see procedure section for details. Head, neck, facial bone, and abdomen/pelvis CTs were performed given mechanism of injury and presentation. These were all unremarkable for acute traumatic injury or pathology. X-ray of the left hand was also performed and negative for acute fracture. Daughter did note patient was going to PCP for low potassium and blood pressure therefore IV access was established and labs were obtained. CBC without leukocytosis or acute anemia. CMP demonstrates acute hypokalemia 2.9. No other electrolyte abnormalities. Renal function within normal limits. LFTs unremarkable. Troponin negative. EKG demonstrates normal sinus rhythm at a r ate of 58 bpm without evidence of ischemic changes. No T wave abnormalities. Patient was treated with IV Tylenol as well as p.o. potassium for hypokalemia. Upon reevaluation, patient remained stable with no new concerns. They were updated on all exam findings and test results. Following discussion, they both expressed concern for patient being able to perform daily activities at home. Daughter does not feel she can adequately provide the care patient currently requires and is requesting placement to rehab facility. Case was discussed with hospitalist, Dr. Parrish who accepted patient to their service for further management and likely rehab placement. Patient was admitted in stable condition. Case was discussed with attending, Dr. Hale. Impression & Plan Closed head injury, Hypokalemia, Laceration of left eyebrow without complication, Left hand pain, Fall, Ambulatory dysfunction Discharge Plan Visit Data Chief Complaint: Fall Stated Complaint: GROUND LEVEL FALL ED Provider: Charli Hale ED Midlevel Provider: Mya Cardenas Discharge Problem: Closed head injury, Hypokalemia, Laceration of left eyebrow without complication, Left hand pain, Fall, Ambulatory dysfunction Patient Disposition: Admitted As Inpatient Condition: Good Forms Stand Alone Forms: [employer] Prescriptions Prescriptions: No Action nitroglycerin [Nitrostat] 0.4 mg tablet, sublingual 0.4 mg sublingual Q5M PRN (Reason: chest pain) Qty: 20 1RF Rx Instructions: 0.4 mg tablet under tongue every 5 minutes, up to a series of 3 tabs, as needed for chest discomfort. rosuvastatin [Crestor] 40 mg tablet 40 mg PO HS Qty: 90 3RF Eliquis 5 mg tablet 5 mg PO BID Qty: 180 3RF buspirone 5 mg tablet 5 mg PO BID Qty: 90 3RF memantine [Namenda] 10 mg tablet 10 mg PO BID Qty: 180 1RF bumetanide 2 mg tablet 2 mg PO DAILY Rx Instructions: On Monday(09/23/22) they told daughter to change to once a day calcium carbonate [Calcium 600] 600 mg calcium (1,500 mg) Tablet 1,200 mg PO QAM cholecalciferol (vitamin D3) [Vitamin D3] 25 mcg (1,000 unit) Capsule 1,000 unit PO QAM docusate sodium 100 mg Capsule 200 mg PO BID amiodarone 200 mg Tablet 100 mg PO HS Qty: 30 0RF Rx Instructions: 1/2 tab at bedtime acetaminophen 325 mg Tablet 650 mg PO Q4H PRN (Reason: pain) Qty: 60 0RF estradiol 0.075 mg/24 hr patch weekly 0.075 mg transdermal WK Rx Instructions: APPLY 1 PATCH TOPICALLY WEEKLY. CHANGE PATCH ON SUNDAYS pantoprazole 40 mg tablet,delayed release (DR/EC) 40 mg PO DAILYBB Rx Instructions: 1/2 hour prior to breakfast PO daily; cyanocobalamin (vitamin B-12) [Vitamin B-12] 500 mcg Tablet 500 mcg PO QAM ascorbic acid (vitamin C) [Vitamin C] 500 mg Tablet 500 mg PO DAILY fluticasone propionate 50 mcg/actuation [place],Suspension 2 spray NA DAILY Qty: 16 0RF Saline Mist 0.65 % Aerosol,[place] 1 spray NA TID Qty: 44 0RF potassium chloride 20 mEq tablet extended release 20 meq PO QAM Qty: 30 0RF Rx Instructions: 09/30 updated to three times a day mirtazapine 30 mg tablet 30 mg PO HS Referrals Referrals: Pro,Sravan Diaz MD [Primary Care Provider] -
[2022-10-27] MEDS ORDERED: OPTIRAY 320 100ml IV ONE (18:38)
[2022-10-27] MEDS ORDERED: LIDOCAINE 1%/EPINEPHRINE 1:100,000 50 ML VIAL INFIL ONE (19:10)
[2022-10-27 19:20] LABS: Basophils # (auto) 0.05 K/uL (0-0.2); Basophils % (auto) 0.6 %; Eosinophils # (auto) 0.08 K/uL (0-0.50); Eosinophils % (auto) 0.9 %; Hematocrit (blood only) 33.6 % (37.0-47.0); Hemoglobin 11.8 g/dl (12.0-16.0); Immature Granulocytes # (auto) 0.02 K/uL (0.01-0.20); Immature Granulocytes % (auto) 0.2 %; Lymphocytes # (auto) 3.58 K/uL (1.2-3.4); Lymphocytes % (auto) 41.3 %; Mean Corpuscular Hemoglobin 32.4 pg (25.0-34.0); Mean Corpuscular Hgb Conc 35.1 g/dL (32.0-36.0); Mean Corpuscular Volume 92.3 fL (80.0-100.0); Mean Platelet Volume 11.2 fL (9.4-12.4); Monocytes # (auto) 1.07 K/uL (0.11-0.59); Monocytes % (auto) 12.4 %; Neutrophils # (auto) 3.86 K/uL (1.40-6.50); Neutrophils % (auto) 44.6 %; Platelet Count 214 K/uL (130-400); RDW Standard Deviation 47.9 fL (36.4-46.3); Red Blood Count 3.64 M/uL (4.20-5.40); White Blood Count 8.66 K/ul (4.8-10.8)
[2022-10-27 19:39] LABS: Albumin Globulin Ratio 1.4 (0.9-2); Albumin Level 4.1 gm/dl (3.4-5.0); BUN Creatinine Ratio 11.8 (10-20); Bilirubin,Total 0.5 mg/dl (0.2-1.0); Calcium 9.4 mg/dl (8.6-10.3); Creatinine Clr Calc Pharmacy 43.2 ml/min; Est GFR (African American) 56.1 ml/min; Est GFR (Non-African American) 48.4 ml/min; Globulin 2.9 gm/dl (2.5-4.0); Potassium 2.9 mmol/L (3.5-5.1)
[2022-10-27] MEDS ORDERED: POTASSIUM CHLORIDE CRTAB 20 MEQ TABCR PO STA (19:44)
[2022-10-27 19:45] LABS: Troponin I High Sensitivity 7.5 pg/ml (0-14)
--- NOTE | 2022-10-27 20:03 | CT Scan Report ---
Exam(s): CT C SPINE EXAM: CT Cervical Spine Without Intravenous Contrast CLINICAL HISTORY: Reason for exam: Fall, facial and head injuries; on Eliquis.. TECHNIQUE: Axial computed tomography images of the cervical spine without intravenous contrast. CTDI is 37.12 mGy and DLP is 546.36 mGy-cm. Automated exposure control was utilized for the study. A dose lowering technique was utilized adhering to the principles of ALARA. COMPARISON: No relevant prior studies available. FINDINGS: The vertebral body heights are maintained. The craniocervical junction is intact. The atlanto-dens interval is maintained. The dens is intact. There is no spondylolisthesis. Multilevel cervical spondylosis and degenerative disc disease. Straightening of the cervical lordosis. The unenhanced neck soft tissues are grossly unremarkable. The visualized lung apices are grossly clear. IMPRESSION: No acute fracture or subluxation of the cervical spine. Electronically signed by: Hesham Beltran MD 10/27/22 20:02 PM
--- NOTE | 2022-10-27 20:11 | CT Scan Report ---
Exam(s): CT FACIAL Without Contrast EXAM: CT Maxillofacial Without Intravenous Contrast CLINICAL HISTORY: Reason for exam: Fall, facial and head injuries; on Eliquis.. TECHNIQUE: Axial computed tomography images of the face without intravenous contrast. CTDI is 37.12 mGy and DLP is 546.36 mGy-cm. Automated exposure control was utilized for the study. A dose lowering technique was utilized adhering to the principles of ALARA. COMPARISON: No relevant prior studies available. FINDINGS: The mandible is intact. Intact maxillary alveolus. The orbital rims and floors are intact. The intraorbital contents are grossly unremarkable. LEFT supraorbital laceration. Intact nasal bones, nasal septum, and maxillary spines. The zygomatic arches and pterygoid processes are intact. IMPRESSION: No facial bone fracture. LEFT supraorbital laceration. Electronically signed by: Hesham Beltran MD 10/27/22 20:10 PM
--- NOTE | 2022-10-27 20:13 | CT Scan Report ---
Exam(s): CT ABDOMEN + PELVIS With Contrast IV Amt: 90ML OPTIRAY 320 EXAM: CT Abdomen and Pelvis With Intravenous Contrast CLINICAL HISTORY: Reason for exam: RUQ pain s/p fall. TECHNIQUE: Axial computed tomography images of the abdomen and pelvis with intravenous contrast. CTDI is 18.48 mGy and DLP is 790.89 mGy-cm. Automated exposure control was utilized for the study. A dose lowering technique was utilized adhering to the principles of ALARA. CONTRAST: Patient received 90ML OPTIRAY 320 of IV contrast COMPARISON: No relevant prior studies available. FINDINGS: Lung bases: Unremarkable. No mass. No consolidation. ABDOMEN: Liver: Unremarkable. No mass. Gallbladder and bile ducts: Cholecystectomy. No ductal dilation. Pancreas: Unremarkable. No mass. No ductal dilation. Spleen: Unremarkable. No splenomegaly. Adrenals: Unremarkable. No mass. Kidneys and ureters: Unremarkable. No hydronephrosis or delayed nephrogram. Stomach and bowel: Moderate diverticulosis, without acute diverticulitis. No small bowel obstruction. No free air. PELVIS: Appendix: No findings to suggest acute appendicitis. Bladder: Decompressed urinary bladder. Reproductive: Unremarkable as visualized. ABDOMEN and PELVIS: Intraperitoneal space: See above. Bones/joints: Degenerative changes of the spine. No acute fracture. No dislocation. Soft tissues: Unremarkable. Vasculature: Atherosclerotic changes of the aorta. This is the IVC, correlate for reason of dehydration. No abdominal aortic aneurysm. Lymph nodes: Unremarkable. No enlarged lymph nodes. IMPRESSION: Moderate diverticulosis, without acute diverticulitis. No small bowel obstruction. No free air. No acute fractures. Electronically signed by: Hesham Beltran MD 10/27/22 20:12 PM
--- NOTE | 2022-10-27 21:19 | CT Scan Report ---
Exam(s): CT HEAD Without Contrast EXAM: CT Head Without Intravenous Contrast CLINICAL HISTORY: Reason for exam: Fall, facial and head injuries; on Eliquis.. TECHNIQUE: Axial computed tomography images of the head/brain without intravenous contrast. CTDI is 37.12 mGy and DLP is 546.36 mGy-cm. Automated exposure control was utilized for the study. A dose lowering technique was utilized adhering to the principles of ALARA. COMPARISON: No relevant prior studies available. FINDINGS: No acute intracranial hemorrhage. No midline shift or mass effect. The territorial taylor-white matter differentiation is maintained throughout. Age-related cerebral volume loss. Periventricular and subcortical white matter hypoattenuation, consistent with chronic microangiopathy. The visualized orbits appear grossly unremarkable. The calvarium is intact. LEFT supraorbital laceration. The visualized paranasal sinuses and mastoid air cells are grossly clear. IMPRESSION: No acute intracranial hemorrhage, midline shift, or mass effect. LEFT supraorbital laceration. Electronically signed by: Hesham Beltran MD 10/27/22 21:18 PM
--- NOTE | 2022-10-27 21:51 | History & Physical Report ---
Date of Service October 27, 2022 Assessment & Plan (1) Fall: Plan: With mechanical fall after tripping on a curb, no loss of consciousness CT head, cervical spine, abdomen/pelvis without acute findings. Does have rib tenderness and rib series is not officially read by radiology [id number] in the morning X-ray of left hand also still pending but no fractures noted With left eyebrow laceration-will need sutures removed in 7 days -Continue wound care to laceration and wounds on face -PT/OT evaluations ordered -No need for telemetry monitoring or cardiac work-up as this was a mechanical fall -Pain control with Tylenol as needed and add lidocaine patch for rib pain -Hold Eliquis for at least 24 hours given head trauma (2) Laceration of left eyebrow without complication: Plan: As noted above (3) Hypokalemia: Plan: Chronic issue for her Potassium 2.9 on admission Give a total of 60 mEq of p.o. potassium chloride and continue home 20 mill equivalents p.o. once daily in the morning Follow BMP and magnesium in the morning (4) Anemia: Plan: Mild. Recent B12, folate, iron studies, and TSH all normal Has also had recent endoscopies with GI within the last year Follow-up with PCP and GI as recommended previously for mildly elevated CEA and AFP (5) CAD (coronary artery disease): Plan: Has small vessel disease, with a history of NSTEMI in 07/2020 Continue statin therapy, but cannot tolerate beta-blockers Is on Eliquis so no need for aspirin (6) Afib: Plan: Paroxysmal, has a history of multiple cardioversions in the past Remains in sinus on amiodarone, has a loop recorder in place Hold Eliquis as above for 24 hours given significant head trauma (7) Chronic heart failure with preserved ejection fraction: Plan: Her current lower extremity edema is similar to multiple times have seen her in the past Continue home compression stockings as the hospital ones are too tight for her Monitor volume status Continue home Bumex and potassium chloride Follows with CHF clinic Has a history of orthostasis with overdiuresis (8) Chronic venous insufficiency: Plan: As noted above Compression stockings and Bumex (9) Depression with anxiety: Plan: Continue home mirtazapine, BuSpar Recently had lost a lot of weight and was thought to possibly be from depression but was supposed to follow-up with GI as an outpatient (10) Postmenopausal hormone replacement therapy: Plan: Continue home estradiol patch (11) Mild cognitive impairment: Plan: No acute issues Continue home memantine Plan DVT prophylaxis-compression stockings, hold Eliquis for now Disposition-admit to medical/surgical unit, PT/OT evaluations and likely needs rehab placement History of Present Illness Chief Complaint: Fall, facial trauma Primary Care Provider: Sravan Figueroa MD This patient is a 77-year-old female with a history of orthostatic hypotension, severe chronic malnutrition, HFpEF, hyponatremia, CAD, chronic atypical chest pain, hyperlipidemia, GI bleed, HTN, AASHISH, paroxysmal A-fib on Eliquis, and depression with anxiety who presents to the ER after tripping on a curb while headed in to see her primary care physician today and falling on her left side and hitting the left side of her face on the sidewalk. She did not feel dizzy or lightheaded prior to the fall and denies any chest pain. She sustained a laceration to her left eyebrow which was sutured with 7 sutures in the ER. She also suffered abrasions to the nose, left cheek and upper lip as well as left fingertips. She was going to an appointment with the PCP due to recent blood work which showed a glucose in the high 50s. The daughter had also recently been concerned that her blood pressures had been in the mid to high 90s systolic but the patient had not felt lightheaded. She does complain of a mild headache at the site of her laceration, as well as some pain in the right anterior ribs with deep breaths. In the ER, she had a CT scan of the head/face/cervical spine/abdomen/pelvis which did not show anything acute. She had a rib series and hand x-ray which had not yet been officially read by radiology. I reviewed it myself and do not see any definite rib or hand fractures. Her labs were otherwise significant for hypokalemia. She will be admitted overnight for continued monitoring given head injury Will on Eliquis. She will also need to be reassessed for need for short-term rehab stay prior to returning home. Allergies Allergy/AdvReac Type Severity Reaction Status Date / Time gluten Allergy Intermediate Celiac Verified 10/14/22 08:57 disease latex Allergy Mild Rash Verified 10/14/22 08:57 Fish Containing Products Allergy Verified 10/14/22 08:57 shellfish derived Allergy Verified 10/14/22 08:57 amoxicillin AdvReac Intermediate Yeast Verified 10/14/22 08:57 infection cefdinir AdvReac Intermediate nausea Verified 10/14/22 08:57 Cephalosporins AdvReac Intermediate Yeast Verified 10/14/22 08:57 infection clavulanic acid AdvReac Intermediate Yeast Verified 10/14/22 08:57 infection prednisone AdvReac Intermediate Anxiety Verified 10/14/22 08:57 Home Medications Medication Instructions Recorded Confirmed Type docusate sodium 100 mg capsule 200 mg PO BID 04/15/18 10/27/22 History calcium carbonate 600 mg calcium 1,200 mg PO QAM 06/08/19 10/27/22 History (1,500 mg) tablet (Calcium) cholecalciferol (vitamin D3) 25 1,000 unit PO QAM 06/08/19 10/27/22 History mcg (1,000 unit) capsule (Vitamin D3) nitroglycerin 0.4 mg sublingual 0.4 mg sublingual Q5M PRN chest 09/25/21 10/27/22 Rx tablet (Nitrostat) pain #20 tabs rosuvastatin 40 mg tablet (Crestor) 40 mg PO HS #90 tabs 02/21/22 10/27/22 Rx amiodarone 200 mg tablet 100 mg PO HS #30 tabs 03/04/22 10/27/22 Rx apixaban 5 mg tablet (Eliquis) 5 mg PO BID #180 tabs 04/29/22 10/27/22 Rx acetaminophen 325 mg tablet 650 mg PO Q4H PRN pain #60 tabs 05/30/22 10/27/22 Rx buspirone 5 mg tablet 5 mg PO BID #90 tabs 06/13/22 10/27/22 Rx memantine 10 mg tablet (Namenda) 10 mg PO BID #180 tabs 07/11/22 10/27/22 Rx estradiol 0.075 mg/24 hr weekly 0.075 mg transdermal WK 07/28/22 10/27/22 History transdermal patch pantoprazole 40 mg tablet,delayed 40 mg PO DAILYBB 07/28/22 10/27/22 History release ascorbic acid (vitamin C) 500 mg 500 mg PO QAM 09/03/22 10/27/22 History tablet (Vitamin C) cyanocobalamin (vitamin B-12) 500 500 mcg PO QAM 09/03/22 10/27/22 History mcg tablet (Vitamin B-12) sodium chloride 0.65 % nasal spray 1 spray NA TID #44 mL 09/04/22 10/27/22 Rx aerosol (Saline Mist) bumetanide 2 mg tablet 2 mg PO QAM 09/27/22 10/27/22 History mirtazapine 30 mg tablet 30 mg PO HS 09/27/22 10/27/22 History potassium chloride 20 mEq 20 meq PO QAM #30 tabs 10/06/22 10/27/22 Rx tablet,extended release fluticasone propionate 50 2 spray NA DAILY PRN Sinus Symptoms 10/27/22 10/27/22 History mcg/actuation nasal spray,suspension Past Med/Surg History Medical History Acute blood loss anemia (ABLA) Acute hyponatremia Anemia RECEIVED 2 UNITS [facility] 04/2021 RECENT ADMISSION Atypical chest pain CAD (coronary artery disease) Medically managed by cardiology NSTEMI 07/27/20- cath demonstrated small branch vessel disease involving small OM to, not amenable to intervention. CD (celiac disease) "Does not" follow gluten-free diet Chest pressure Chronic diastolic congestive heart failure Constipation Degenerative disc disease Diastolic CHF Diverticulitis 2014 Dyslipidemia GI bleed reason for Endoscopy History of paroxysmal supraventricular tachycardia with atrial tachycardia Hypercholesterolemia Hypertension Hypokalemia Low back pain with sciatica Nausea & vomiting Near syncope Non-ST elevation RI (NSTEMI) 07/27/20 Obstructive sleep apnea Ocular migraine Open wound of buttock Orthostasis Paroxysmal atrial fibrillation Sleep apnea CPAP Syncope and collapse Tremor Vertigo Surgical History History of arthroscopy of right shoulder RCR History of cardiac cath 2016, 07/28/20 ([place]) > no stents History of cardioversion x2, most recent 04/2019 History of carpal tunnel release R/L History of cataract surgery R/L History of cholecystectomy History of colonoscopy History of esophagogastroduodenoscopy (EGD) History of foot surgery R/L feet "to straighten toes" History of fracture of left shoulder Plate + screws History of hysterectomy JOANNA + BSO History of incision and drainage Right foot History of tonsillectomy History of total knee replacement Left x2, right x1 S/P transesophageal echocardiogram (JOHANA) Status post placement of implantable loop recorder Implanted 12/2019 - Follows Dr. Yoo > to see Dr. Powers this afternoon for check Family History Mother Family hx of colon cancer Colorectal cancer Brother Prostate cancer Family history of diabetes mellitus Father Dissecting aortic aneurysm Myocardial infarction Grandmother (Maternal) Stroke Other No family history of adverse response to anesthesia Denies family history of Ovarian cancer Breast cancer Social History Smoking Status: Never smoker Tobacco Type: Cigarettes Age Started Using Tobacco: 19; Age Quit Using Tobacco: 27; packs per day: 0.25; Second Hand Exposure: No; Do You Dip or Chew Tobacco: No; Hx Alcohol Use: No Hx Substance Use: No Preferred Language: R[place] Communication Ability: Effective Visual Impairment: No Limitations Hearing Ability: Normal Director Export Required: No Beliefs That Will Affect Care: None marital status: Current Living Situation: Spouse Current Living Situation Comment: home with current occupational status: retired Other Information That Helps Us Care for You: 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; 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[employer]; 3 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 Feels Safe at Home: Yes Safety Concerns: Feels Safe At This Time Childhood Exposure to Second-Hand Smoke: No Dental Care, Regularly: Yes Physical Activity Frequency: 3-4 Times per Week Seatbelt Use: always Sunscreen Use: Yes Assistive Devices: None Review of Systems Review of Systems: All systems reviewed & are unremarkable except as noted in HPI & below Physical Exam Constitutional: WD/WN, vitals as above ENMT: Left supraorbital region with laceration with [address], no further active bleeding Nose and upper lip with small abrasions no active bleeding Neck: trachea midline, no thyromegaly Respiratory: normal respiratory effort, lungs clear to auscultation Cardiovascular: Rate/Rhythm: regular rate and regular rhythm Extremities: + edema (1+ edema legs bilaterally) Chest (Breasts): Chest: normal inspection of chest Additional Comments: Positive tenderness to palpation over right anterior ribs without bruising noted or crepitus Gastrointestinal (Abdomen): Inspection/Auscultation: abdomen normal to inspection and normal bowel sounds; abdomen not distended Percussion/Palpation: + abdomen tender (Mild tenderness to palpation in right mid abdomen which is chronic as per p) and abdomen soft; no guarding Musculoskeletal: Extremities: no cyanosis and no clubbing Skin: Multiple abrasions on face as noted above Left fourth finger with abrasion and dried blood at the tip Neurologic: moves all extremities and awake; no focal motor deficits Psychiatric: A+Ox3, euthymic affect Results & Data Results & Data Vital Signs (Past 12 Hours) Vital Signs Temp Pulse Pulse Resp BP BP Pulse Ox 10/27/22 20:49 59 L 10/27/22 19:09 65 18 118/66 98 10/27/22 17:25 36.7 C 64 20 153/62 H 95 O2 Del Method 10/27/22 20:49 10/27/22 19:09 10/27/22 17:25 Room Air Laboratory Results CBC, CMP, lipase reviewed Diagnostic Findings Cervical Spine CT 10/27/22 17:35 Exam(s): CT C SPINE EXAM: CT Cervical Spine Without Intravenous Contrast CLINICAL HISTORY: Reason for exam: Fall, facial and head injuries; on Eliquis.. TECHNIQUE: Axial computed tomography images of the cervical spine without intravenous contrast. CTDI is 37.12 mGy and DLP is 546.36 mGy-cm. Automated exposure control was utilized for the study. A dose lowering technique was utilized adhering to the principles of ALARA. COMPARISON: No relevant prior studies available. FINDINGS: The vertebral body heights are maintained. The craniocervical junction is intact. The atlanto-dens interval is maintained. The dens is intact. There is no spondylolisthesis. Multilevel cervical spondylosis and degenerative disc disease. Straightening of the cervical lordosis. The unenhanced neck soft tissues are grossly unremarkable. The visualized lung apices are grossly clear. IMPRESSION: No acute fracture or subluxation of the cervical spine. Electronically signed by: Hesham Beltran MD 10/27/22 20:[address] 10/27/22 17:35 Exam(s): CT FACIAL Without Contrast EXAM: CT Maxillofacial Without Intravenous Contrast CLINICAL HISTORY: Reason for exam: Fall, facial and head injuries; on Eliquis.. TECHNIQUE: Axial computed tomography images of the face without intravenous contrast. CTDI is 37.12 mGy and DLP is 546.36 mGy-cm. Automated exposure control was utilized for the study. A dose lowering technique was utilized adhering to the principles of ALARA. COMPARISON: No relevant prior studies available. FINDINGS: The mandible is intact. Intact maxillary alveolus. The orbital rims and floors are intact. The intraorbital contents are grossly unremarkable. LEFT supraorbital laceration. Intact nasal bones, nasal septum, and maxillary spines. The zygomatic arches and pterygoid processes are intact. IMPRESSION: No facial bone fracture. LEFT supraorbital laceration. Electronically signed by: Hesham Beltran MD 10/27/22 20:[address] 10/27/22 17:35 Exam(s): CT HEAD Without Contrast EXAM: CT Head Without Intravenous Contrast CLINICAL HISTORY: Reason for exam: Fall, facial and head injuries; on Eliquis.. TECHNIQUE: Axial computed tomography images of the head/brain without intravenous contrast. CTDI is 37.12 mGy and DLP is 546.36 mGy-cm. Automated exposure control was utilized for the study. A dose lowering technique was utilized adhering to the principles of ALARA. COMPARISON: No relevant prior studies available. FINDINGS: No acute intracranial hemorrhage. No midline shift or mass effect. The territorial taylor-white matter differentiation is maintained throughout. Age-related cerebral volume loss. Periventricular and subcortical white matter hypoattenuation, consistent with chronic microangiopathy. The visualized orbits appear grossly unremarkable. The calvarium is intact. LEFT supraorbital laceration. The visualized paranasal sinuses and mastoid air cells are grossly clear. IMPRESSION: No acute intracranial hemorrhage, midline shift, or mass effect. LEFT supraorbital laceration. Electronically signed by: Hesham Beltran MD 10/27/22 21:18 PM Abdomen/Pelvis CT 10/27/22 18:03 Exam(s): CT ABDOMEN + PELVIS With Contrast IV Amt: 90ML OPTIRAY 320 EXAM: CT Abdomen and Pelvis With Intravenous Contrast CLINICAL HISTORY: Reason for exam: RUQ pain s/p fall. TECHNIQUE: Axial computed tomography images of the abdomen and pelvis with intravenous contrast. CTDI is 18.48 mGy and DLP is 790.89 mGy-cm. Automated exposure control was utilized for the study. A dose lowering technique was utilized adhering to the principles of ALARA. CONTRAST: Patient received 90ML OPTIRAY 320 of IV contrast COMPARISON: No relevant prior studies available. FINDINGS: Lung bases: Unremarkable. No mass. No consolidation. ABDOMEN: Liver: Unremarkable. No mass. Gallbladder and bile ducts: Cholecystectomy. No ductal dilation. Pancreas: Unremarkable. No mass. No ductal dilation. Spleen: Unremarkable. No splenomegaly. Adrenals: Unremarkable. No mass. Kidneys and ureters: Unremarkable. No hydronephrosis or delayed nephrogram. Stomach and bowel: Moderate diverticulosis, without acute diverticulitis. No small bowel obstruction. No free air. PELVIS: Appendix: No findings to suggest acute appendicitis. Bladder: Decompressed urinary bladder. Reproductive: Unremarkable as visualized. ABDOMEN and PELVIS: Intraperitoneal space: See above. Bones/joints: Degenerative changes of the spine. No acute fracture. No dislocation. Soft tissues: Unremarkable. Vasculature: Atherosclerotic changes of the aorta. This is the IVC, correlate for reason of dehydration. No abdominal aortic aneurysm. Lymph nodes: Unremarkable. No enlarged lymph nodes. IMPRESSION: Moderate diverticulosis, without acute diverticulitis. No small bowel obstruction. No free air. No acute fractures. Electronically signed by: Hesham Beltran MD 10/27/22 20:12 PM ECG Additional Comments: ECG on 10/27/2022 at 1815 with normal sinus rhythm, rate 62, otherwise normal Code Status & VTE Plan Code Status DNR/DNI VTE Prophylaxis Plan VTE Prophylaxis will be ordered: Yes PG Care Time/CCT Total # of Minutes Spent Total Time Spent with Patient: Total time spent is greater than 50% in coordination of care (as documented) at patient's floor/unit and/or counseling patient: Coding Level of Care Code 07901 INT INP/OBS CARE 3/75MIN Diagnoses Fall W19.XXXA Laceration of left eyebrow without complication S01.112A Hypokalemia E87.6 Anemia D64.9 CAD (coronary artery disease) I25.10 Afib I48.91 Atrial fibrillation type: unspecified Chronic heart failure with preserved ejection fraction I50.32 Chronic venous insufficiency I87.2 Depression with anxiety F41.8 Postmenopausal hormone replacement therapy Z79.890 Mild cognitive impairment G31.84 (6) Afib Atrial fibrillation type: unspecified Qualified Code(s): I48.91 - Unspecified atrial fibrillation
[2022-10-28] MEDS ORDERED: MAGNESIUM HYDROXIDE SUSP 30 ML UDC PO PRN (00:24)
[2022-10-28] MEDS ORDERED: ALUMINUM/MAGNESIUM SUSP 30 ML UDC PO PRN (00:24)
[2022-10-28] MEDS ORDERED: ONDANSETRON INJ 2 MG/ML 2 ML VIAL IV PRN (00:24)
[2022-10-28] MEDS ORDERED: POLYETHYLENE (MIRALAX) 17 GM PACK PO PRN (00:24)
[2022-10-28] MEDS ORDERED: NITROGLYCERIN SL 0.4 MG/TAB TAB SL PRN (00:24)
[2022-10-28] MEDS ORDERED: POTASSIUM CHLORIDE CRTAB 20 MEQ TABCR PO STA (00:24)
[2022-10-28] MEDS: MIRTAZAPINE TAB 15 MG TAB PO SCH ×2 (01:05→19:33)
[2022-10-28] MEDS: MEMANTINE HCL 10 MG TAB PO SCH ×3 (01:06→19:36)
[2022-10-28] MEDS: ROSUVASTATIN CALCIUM 20 MG TAB PO SCH ×2 (01:06→19:34)
[2022-10-28] MEDS: busPIRone 5 MG TAB PO SCH ×3 (01:06→19:31)
[2022-10-28] MEDS: PANTOprazole 40 MG TAB PO SCH (05:30)
--- NOTE | 2022-10-28 07:09 | XRay Report ---
LEFT HAND 3 VIEWS CLINICAL HISTORY: Fall. Left hand injury. FINDINGS: 3 views of the left hand are obtained. Correlation is made with radiographs of left wrist d ated 02/20/2014. The skeletal structures are osteopenic. No acute fracture is seen. Moderate osteoart hritic changes seen at the first carpometacarpal articulation. Milder arthritic change is seen throug hout the remainder of the wrist. Arthritic change is seen throughout the interphalangeal joints, dist al greater than proximal. 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 Soft tissue swelling is noted in the fingers. IMPRESSION: 1. No fracture is identified. 2. Osteopenia and arthritic change as above. Electronically signed by: Michael Smith M.D. 10/28/2022 7:07 AM
[2022-10-28] MEDS: ACETAMINOPHEN 325 MG TAB PO PRN ×2 (07:27→16:01)
--- NOTE | 2022-10-28 07:45 | XRay Report ---
XR ribs BI min 4V w CXR1V CLINICAL HISTORY: fall COMPARISON STUDY: Chest 10/03/2022. FINDINGS: No pneumothorax. No pleural effusions. The lungs are clear. The heart is normal in size. Pr ior cholecystectomy. No acute rib fractures. IMPRESSION: No acute rib fractures. No pneumothorax. ACT 112: Negative or not required by law. Electronically signed by: Cameron Ruiz M.D. 10/28/2022 7:42 AM
--- NOTE | 2022-10-28 08:02 | Electrocardiogram Report ---
Test Reason : Blood Pressure : / mmHG Vent. Rate : 062 BPM Atrial Rate : 062 BPM P-R Int : 182 ms QRS Dur : 070 ms QT Int : 458 ms P-R-T Axes : 081 078 073 degrees QTc Int : 464 ms Poor data quality, interpretation may be adversely affected Normal sinus rhythm artifact Normal ECG When compared with ECG of 03-OCT-2022 12:26, No significant change Confirmed by Jayy Jaimes ([id number]) on 10/28/2022 8:01:54 AM Referred By: REFERRED SELF Confirmed By:Jayy Jaimes
--- NOTE | 2022-10-28 08:03 | Electrocardiogram Report ---
Test Reason : Blood Pressure : / mmHG Vent. Rate : 058 BPM Atrial Rate : 058 BPM P-R Int : 192 ms QRS Dur : 102 ms QT Int : 500 ms P-R-T Axes : 084 059 046 degrees QTc Int : 490 ms Sinus bradycardia Nonspecific T wave abnormality Anterior leads Abnormal ECG When compared with ECG of 27-OCT-2022 18:15, Nonspecific T wave abnormality, worse in Anterior leads Confirmed by Jayy Jaimes ([id number]) on 10/28/2022 8:02:36 AM Referred By: REFERRED SELF Confirmed By:Jayy Jaimes
[2022-10-28] MEDS: LIDOCAINE 5% 1 PATCH TD SCH (08:32)
[2022-10-28 08:35] LABS: BUN Creatinine Ratio 12.3 (10-20); Calcium 9.2 mg/dl (8.6-10.3); Creatinine Clr Calc Pharmacy 58.7 ml/min; Est GFR (African American) 81.2 ml/min; Est GFR (Non-African American) 70.1 ml/min; Magnesium 2.1 mg/dl (1.7-2.4); Potassium 3.6 mmol/L (3.5-5.1)
[2022-10-28] MEDS: DOCUSATE SODIUM 100 MG CAP PO SCH ×2 (08:35→19:31)
[2022-10-28] MEDS: BUMETANIDE 1 MG TAB PO SCH (08:36)
[2022-10-28] MEDS: ASCORBIC ACID 500 MG TAB PO SCH (08:37)
[2022-10-28] MEDS: CHOLECALCIFEROL 1,000 UNITS 25 MCG TAB PO SCH (08:37)
[2022-10-28] MEDS: CYANOCOBALAMIN (B-12) 500 MCG TABLET PO SCH (08:37)
[2022-10-28] MEDS: CALCIUM CARBONATE 1250MG TAB PO SCH (08:37)
[2022-10-28] MEDS: FLUTICASONE PROPIONATE NA SPR 16 GM BTL SCH (08:38)
[2022-10-28] MEDS: POTASSIUM CHLORIDE CRTAB 20 MEQ TABCR PO SCH (08:41)
[2022-10-28] MEDS: SODIUM CHLORIDE 0.65% NA SOLN 45 ML (OCEAN) SCH ×3 (08:41→19:34)
[2022-10-28 09:39] LABS: Basophils # (auto) 0.06 K/uL (0-0.2); Basophils % (auto) 0.8 %; Eosinophils # (auto) 0.08 K/uL (0-0.50); Eosinophils % (auto) 1.1 %; Hematocrit (blood only) 35.5 % (37.0-47.0); Hemoglobin 12.5 g/dl (12.0-16.0); Immature Granulocytes # (auto) 0.01 K/uL (0.01-0.20); Immature Granulocytes % (auto) 0.1 %; Lymphocytes # (auto) 2.53 K/uL (1.2-3.4); Lymphocytes % (auto) 34.6 %; Mean Corpuscular Hemoglobin 32.1 pg (25.0-34.0); Mean Corpuscular Hgb Conc 35.2 g/dL (32.0-36.0); Mean Corpuscular Volume 91.3 fL (80.0-100.0); Mean Platelet Volume 11.4 fL (9.4-12.4); Monocytes # (auto) 0.86 K/uL (0.11-0.59); Monocytes % (auto) 11.7 %; Neutrophils # (auto) 3.78 K/uL (1.40-6.50); Neutrophils % (auto) 51.7 %; Platelet Count 209 K/uL (130-400); RDW Coefficient of Variation 14.5 % (11.5-14.5); RDW Standard Deviation 48.8 fL (36.4-46.3); Red Blood Count 3.89 M/uL (4.20-5.40); White Blood Count 7.32 K/ul (4.8-10.8)
[2022-10-28] MEDS: AMIODARONE 200 MG TAB PO SCH (19:32)
--- NOTE | 2022-10-28 22:25 | Hospitalist Progress Note ---
Date of Service October 28, 2022 Assessment & Plan (1) Fall: Plan: With mechanical fall after tripping on a curb, no loss of consciousness CT head, cervical spine, abdomen/pelvis without acute findings. Does have rib tenderness and rib series is not officially read by radiology [id number] in the morning X-ray of left hand also still pending but no fractures noted With left eyebrow laceration-will need sutures removed in 7 days -Continue wound care to laceration and wounds on face -PT/OT evaluations ordered -No need for telemetry monitoring or cardiac work-up as this was a mechanical fall -Pain control with Tylenol as needed and add lidocaine patch for rib pain -Hold Eliquis for at least 24 hours given head trauma Awaiting input from PT/OT Patient may need rehab. (2) Laceration of left eyebrow without complication: Plan: As noted above (3) Hypokalemia: Plan: Chronic issue for her Potassium 2.9 on admission Give a total of 60 mEq of p.o. potassium chloride and continue home 20 mill equivalents p.o. once daily in the morning replaced. (4) Anemia: Plan: Mild. Recent B12, folate, iron studies, and TSH all normal Has also had recent endoscopies with GI within the last year Follow-up with PCP and GI as recommended previously for mildly elevated CEA and AFP (5) CAD (coronary artery disease): Plan: Has small vessel disease, with a history of NSTEMI in 07/2020 Continue statin therapy, but cannot tolerate beta-blockers Is on Eliquis so no need for aspirin (6) Afib: Plan: Paroxysmal, has a history of multiple cardioversions in the past Remains in sinus on amiodarone, has a loop recorder in place Hold Eliquis as above for 24 hours given significant head trauma (7) Chronic heart failure with preserved ejection fraction: Plan: Her current lower extremity edema is similar to multiple times have seen her in the past Continue home compression stockings as the hospital ones are too tight for her Monitor volume status Continue home Bumex and potassium chloride Follows with CHF clinic Has a history of orthostasis with overdiuresis (8) Chronic venous insufficiency: Plan: As noted above Compression stockings and Bumex (9) Depression with anxiety: Plan: Continue home mirtazapine, BuSpar Recently had lost a lot of weight and was thought to possibly be from depression but was supposed to follow-up with GI as an outpatient (10) Postmenopausal hormone replacement therapy: Plan: Continue home estradiol patch (11) Mild cognitive impairment: Plan: No acute issues Continue home memantine Plan DVT prophylaxis-compression stockings, hold Eliquis for now Admission and Anticipated Discharge Date Admission Date: October 27, 2022 Subjective 77 yo female reports no new symptoms. Updated family Review of Systems Review of Systems: All systems reviewed & are unremarkable except as noted in HPI & below Physical Exam Constitutional: WD/WN, vitals as above Neck: trachea midline, no thyromegaly Respiratory: normal respiratory effort, lungs clear to auscultation Cardiovascular: Rate/Rhythm: regular rate and regular rhythm Extremities: + edema (1+ edema legs bilaterally) Chest (Breasts): Chest: normal inspection of chest Gastrointestinal (Abdomen): Inspection/Auscultation: abdomen normal to inspection and normal bowel sounds; abdomen not distended Percussion/Palpation: + abdomen tender (Mild tenderness to palpation in right mid abdomen which is chronic as per p) and abdomen soft; no guarding Musculoskeletal: Extremities: no cyanosis and no clubbing Neurologic: moves all extremities and awake; no focal motor deficits Psychiatric: A+Ox3, euthymic affect Results & Data Results & Data Vital Signs (Past 12 Hours) Vital Signs Temp Pulse Resp BP Pulse Ox O2 Del Method 10/28/22 15:01 36.4 C L 61 14 113/51 L 99 Room Air PG Care Time/CCT Total # of Minutes Spent Total Time Spent with Patient: Total time spent is greater than 50% in coordination of care (as documented) at patient's floor/unit and/or counseling patient: Coding Level of Care Code 85134 SUB INP/OBS CARE 2/35MIN Diagnoses Fall W19.XXXA Laceration of left eyebrow without complication S01.112A Hypokalemia E87.6 Anemia D64.9 CAD (coronary artery disease) I25.10 Afib I48.91 Atrial fibrillation type: unspecified Chronic heart failure with preserved ejection fraction I50.32 Chronic venous insufficiency I87.2 Depression with anxiety F41.8 Postmenopausal hormone replacement therapy Z79.890 Mild cognitive impairment G31.84 (6) Afib Atrial fibrillation type: unspecified Qualified Code(s): I48.91 - Unspecified atrial fibrillation
[2022-10-29] MEDS: ACETAMINOPHEN 325 MG TAB PO PRN ×2 (01:50→08:19)
[2022-10-29] MEDS: PANTOprazole 40 MG TAB PO SCH (05:29)
[2022-10-29 06:47] LABS: Hematocrit (blood only) 32.3 % (37.0-47.0); Hemoglobin 11.4 g/dl (12.0-16.0); Mean Corpuscular Hemoglobin 32.5 pg (25.0-34.0); Mean Corpuscular Hgb Conc 35.3 g/dL (32.0-36.0); Mean Platelet Volume 11.2 fL (9.4-12.4); Platelet Count 186 K/uL (130-400); RDW Coefficient of Variation 14.6 % (11.5-14.5); RDW Standard Deviation 49.2 fL (36.4-46.3); Red Blood Count 3.51 M/uL (4.20-5.40); White Blood Count 7.02 K/ul (4.8-10.8)
[2022-10-29 07:03] LABS: BUN Creatinine Ratio 15.3 (10-20); Calcium 8.8 mg/dl (8.6-10.3); Creatinine Clr Calc Pharmacy 55.9 ml/min; Est GFR (African American) 76.6 ml/min; Est GFR (Non-African American) 66.1 ml/min; Phosphorus 3.7 mg/dl (2.5-4.9); Potassium 3.3 mmol/L (3.5-5.1)
[2022-10-29] MEDS: POTASSIUM CHLORIDE CRTAB 20 MEQ TABCR PO SCH (08:19)
[2022-10-29] MEDS: CYANOCOBALAMIN (B-12) 500 MCG TABLET PO SCH (08:19)
[2022-10-29] MEDS: DOCUSATE SODIUM 100 MG CAP PO SCH ×2 (08:19→20:09)
[2022-10-29] MEDS: CHOLECALCIFEROL 1,000 UNITS 25 MCG TAB PO SCH (08:19)
[2022-10-29] MEDS: ASCORBIC ACID 500 MG TAB PO SCH (08:19)
[2022-10-29] MEDS: BUMETANIDE 1 MG TAB PO SCH (08:19)
[2022-10-29] MEDS: busPIRone 5 MG TAB PO SCH ×2 (08:19→19:45)
[2022-10-29] MEDS: CALCIUM CARBONATE 1250MG TAB PO SCH (08:19)
[2022-10-29] MEDS: FLUTICASONE PROPIONATE NA SPR 16 GM BTL SCH (08:20)
[2022-10-29] MEDS: SODIUM CHLORIDE 0.65% NA SOLN 45 ML (OCEAN) SCH ×3 (08:20→19:46)
[2022-10-29] MEDS: MEMANTINE HCL 10 MG TAB PO SCH ×2 (08:20→19:44)
[2022-10-29] MEDS: LIDOCAINE 5% 1 PATCH TD SCH (09:46)
--- NOTE | 2022-10-29 16:45 | Hospitalist Progress Note ---
Date of Service October 29, 2022 Assessment & Plan (1) Fall: Plan: With mechanical fall after tripping on a curb, no loss of consciousness CT head, cervical spine, abdomen/pelvis without acute findings. Does have rib tenderness and rib series is not officially read by radiology [id number] in the morning X-ray of left hand also still pending but no fractures noted With left eyebrow laceration-will need sutures removed in 7 days -Continue wound care to laceration and wounds on face -PT/OT evaluations ordered -No need for telemetry monitoring or cardiac work-up as this was a mechanical fall -Pain control with Tylenol as needed and add lidocaine patch for rib pain -Held Eliquis for at least 24 hours given head trauma Patient is now agreeable to rehab. (2) Laceration of left eyebrow without complication: Plan: As noted above (3) Hypokalemia: Plan: Chronic issue for her Potassium 2.9 on admission Give a total of 60 mEq of p.o. potassium chloride and continue home 20 mill equivalents p.o. once daily in the morning replaced. (4) Anemia: Plan: Mild. Recent B12, folate, iron studies, and TSH all normal Has also had recent endoscopies with GI within the last year Follow-up with PCP and GI as recommended previously for mildly elevated CEA and AFP (5) CAD (coronary artery disease): Plan: Has small vessel disease, with a history of NSTEMI in 07/2020 Continue statin therapy, but cannot tolerate beta-blockers Is on Eliquis so no need for aspirin (6) Afib: Plan: Paroxysmal, has a history of multiple cardioversions in the past Remains in sinus on amiodarone, has a loop recorder in place Hold Eliquis as above for 24 hours given significant head trauma (7) Chronic heart failure with preserved ejection fraction: Plan: Her current lower extremity edema is similar to multiple times have seen her in the past Continue home compression stockings as the hospital ones are too tight for her Monitor volume status Continue home Bumex and potassium chloride Follows with CHF clinic Has a history of orthostasis with overdiuresis (8) Chronic venous insufficiency: Plan: As noted above Compression stockings and Bumex (9) Depression with anxiety: Plan: Continue home mirtazapine, BuSpar Recently had lost a lot of weight and was thought to possibly be from depression but was supposed to follow-up with GI as an outpatient (10) Postmenopausal hormone replacement therapy: Plan: Continue home estradiol patch (11) Mild cognitive impairment: Plan: No acute issues Continue home memantine Plan DVT prophylaxis-compression stockings, hold Eliquis for now Admission and Anticipated Discharge Date Admission Date: October 27, 2022 Subjective 77 yo female reports no new symptoms. She is now agreeable for a week of rehab. Family is updated. Review of Systems Review of Systems: All systems reviewed & are unremarkable except as noted in HPI & below Physical Exam Constitutional: WD/WN, vitals as above Neck: trachea midline, no thyromegaly Respiratory: normal respiratory effort, lungs clear to auscultation Cardiovascular: Rate/Rhythm: regular rate and regular rhythm Extremities: + edema (1+ edema legs bilaterally) Chest (Breasts): Chest: normal inspection of chest Gastrointestinal (Abdomen): Inspection/Auscultation: abdomen normal to inspection and normal bowel sounds; abdomen not distended Percussion/Palpation: + abdomen tender (Mild tenderness to palpation in right mid abdomen which is chronic as per p) and abdomen soft; no guarding Musculoskeletal: Extremities: no cyanosis and no clubbing Neurologic: moves all extremities and awake; no focal motor deficits Psychiatric: A+Ox3, euthymic affect Results & Data Results & Data Vital Signs (Past 12 Hours) Vital Signs Temp Pulse Resp BP Pulse Ox O2 Del Method 10/29/22 15:13 36.7 C 62 15 113/55 L 98 Room Air 10/29/22 07:23 36.5 C 67 17 133/69 96 Room Air PG Care Time/CCT Total # of Minutes Spent Total Time Spent with Patient: Total time spent is greater than 50% in coordination of care (as documented) at patient's floor/unit and/or counseling patient: Coding Level of Care Code 66941 SUB INP/OBS CARE 2/35MIN Diagnoses Fall W19.XXXA Laceration of left eyebrow without complication S01.112A Hypokalemia E87.6 Anemia D64.9 CAD (coronary artery disease) I25.10 Afib I48.91 Atrial fibrillation type: unspecified Chronic heart failure with preserved ejection fraction I50.32 Chronic venous insufficiency I87.2 Depression with anxiety F41.8 Postmenopausal hormone replacement therapy Z79.890 Mild cognitive impairment G31.84 (6) Afib Atrial fibrillation type: unspecified Qualified Code(s): I48.91 - Unspecified atrial fibrillation
[2022-10-29] MEDS: ROSUVASTATIN CALCIUM 20 MG TAB PO SCH (19:43)
[2022-10-29] MEDS: AMIODARONE 200 MG TAB PO SCH (19:44)
[2022-10-29] MEDS: MIRTAZAPINE TAB 15 MG TAB PO SCH (19:45)
[2022-10-29] MEDS: APIXABAN 5 MG TABLET PO SCH (20:09)
[2022-10-30] MEDS: PANTOprazole 40 MG TAB PO SCH (05:30)
[2022-10-30] MEDS: ASCORBIC ACID 500 MG TAB PO SCH (08:08)
[2022-10-30] MEDS: APIXABAN 5 MG TABLET PO SCH (08:08)
[2022-10-30] MEDS: busPIRone 5 MG TAB PO SCH (08:09)
[2022-10-30] MEDS: MEMANTINE HCL 10 MG TAB PO SCH (08:09)
[2022-10-30] MEDS: BUMETANIDE 1 MG TAB PO SCH (08:10)
[2022-10-30] MEDS: CALCIUM CARBONATE 1250MG TAB PO SCH (08:11)
[2022-10-30] MEDS: CYANOCOBALAMIN (B-12) 500 MCG TABLET PO SCH (08:12)
[2022-10-30] MEDS: CHOLECALCIFEROL 1,000 UNITS 25 MCG TAB PO SCH (08:12)
[2022-10-30] MEDS: DOCUSATE SODIUM 100 MG CAP PO SCH (08:20)
[2022-10-30] MEDS: LIDOCAINE 5% 1 PATCH TD SCH (08:20)
[2022-10-30] MEDS: POTASSIUM CHLORIDE CRTAB 20 MEQ TABCR PO SCH (08:20)
[2022-10-30] MEDS: FLUTICASONE PROPIONATE NA SPR 16 GM BTL SCH (08:22)
[2022-10-30] MEDS: SODIUM CHLORIDE 0.65% NA SOLN 45 ML (OCEAN) SCH ×2 (08:22→13:22)
--- NOTE | 2022-10-30 09:50 | Discharge Summary ---
Date of Service October 30, 2022 Admission HPI Per Admitting Provider This patient is a 77-year-old female with a history of orthostatic hypotension, severe chronic malnutrition, HFpEF, hyponatremia, CAD, chronic atypical chest pain, hyperlipidemia, GI bleed, HTN, AASHISH, paroxysmal A-fib on Eliquis, and depression with anxiety who presents to the ER after tripping on a curb while headed in to see her primary care physician today and falling on her left side and hitting the left side of her face on the sidewalk. She did not feel dizzy or lightheaded prior to the fall and denies any chest pain. She sustained a laceration to her left eyebrow which was sutured with 7 sutures in the ER. She also suffered abrasions to the nose, left cheek and upper lip as well as left fingertips. She was going to an appointment with the PCP due to recent blood work which showed a glucose in the high 50s. The daughter had also recently been concerned that her blood pressures had been in the mid to high 90s systolic but the patient had not felt lightheaded. She does complain of a mild headache at the site of her laceration, as well as some pain in the right anterior ribs with deep breaths. In the ER, she had a CT scan of the head/face/cervical spine/abdomen/pelvis which did not show anything acute. She had a rib series and hand x-ray which had not yet been officially read by radiology. I reviewed it myself and do not see any definite rib or hand fractures. Her labs were otherwise significant for hypokalemia. She will be admitted overnight for continued monitoring given head injury Will on Eliquis. She will also need to be reassessed for need for short-term rehab stay prior to returning home. Principal Diagnosis fall Discharge Exam Constitutional WD/WN, vitals as above Neck trachea midline, no thyromegaly Respiratory normal respiratory effort, lungs clear to auscultation Cardiovascular Rate/Rhythm: regular rate and regular rhythm Extremities: + edema (1+ edema legs bilaterally) Chest (Breasts) Chest: normal inspection of chest Gastrointestinal (Abdomen) Inspection/Auscultation: abdomen normal to inspection and normal bowel sounds; a bdomen not distended Percussion/Palpation: + abdomen tender (Mild tenderness to palpation in right mid abdomen which is chronic as per p) and abdomen soft; no guarding Musculoskeletal Extremities: no cyanosis and no clubbing Neurologic moves all extremities and awake; no focal motor deficits Psychiatric A+Ox3, euthymic affect Discharge Data Allergies Allergy/AdvReac Type Severity Reaction Status Date / Time gluten Allergy Intermediate Celiac Verified 10/14/22 08:57 disease latex Allergy Mild Rash Verified 10/14/22 08:57 Fish Containing Products Allergy Verified 10/14/22 08:57 shellfish derived Allergy Verified 10/14/22 08:57 amoxicillin AdvReac Intermediate Yeast Verified 10/14/22 08:57 infection cefdinir AdvReac Intermediate nausea Verified 10/14/22 08:57 Cephalosporins AdvReac Intermediate Yeast Verified 10/14/22 08:57 infection clavulanic acid AdvReac Intermediate Yeast Verified 10/14/22 08:57 infection prednisone AdvReac Intermediate Anxiety Verified 10/14/22 08:57 Consultations 10/27/22 21:13 ED Decision to Admit Stat Ordered Studies 10/27/22 17:35 CT cervical spine wo con Stat CT facial bones wo con Stat CT head/brain wo con Stat 10/27/22 18:03 CT abd pelvis IV con only Stat Hospital Course (1) Fall: With mechanical fall after tripping on a curb, no loss of consciousness CT head, cervical spine, abdomen/pelvis without acute findings. Does have rib tenderness and rib series is not officially read by radiology [id number] in the morning X-ray of left hand also still pending but no fractures noted With left eyebrow laceration-will need sutures removed in 7 days ( at the earliest 8/3 pm or 8/4 AM) -Continue wound care to laceration and wounds on face -PT/OT evaluations ordered: will need rehab -No need for telemetry monitoring or cardiac work-up as this was a mechanical fall -Pain control with Tylenol as needed and add lidocaine patch for rib pain -Held Eliquis for at least 24 hours given head trauma: this was later resumed. Patient is now agreeable to rehab. (2) Laceration of left eyebrow without complication: As noted above (3) Hypokalemia: Chronic issue for her Potassium 2.9 on admission Give a total of 60 mEq of p.o. potassium chloride and continue home 20 mill equivalents p.o. once daily in the morning replaced. (4) Anemia: Mild. Recent B12, folate, iron studies, and TSH all normal Has also had recent endoscopies with GI within the last year Follow-up with PCP and GI as recommended previously for mildly elevated CEA and AFP (5) CAD (coronary artery disease): Has small vessel disease, with a history of NSTEMI in 07/2020 Continue statin therapy, but cannot tolerate beta-blockers Is on Eliquis so no need for aspirin (6) Afib: Paroxysmal, has a history of multiple cardioversions in the past Remains in sinus on amiodarone, has a loop recorder in place Hold Eliquis as above for 24 hours given significant head trauma (7) Chronic heart failure with preserved ejection fraction: Her current lower extremity edema is similar to multiple times have seen her in the past Continue home compression stockings as the hospital ones are too tight for her Monitor volume status Continue home Bumex and potassium chloride Follows with CHF clinic Has a history of orthostasis with overdiuresis (8) Chronic venous insufficiency: As noted above Compression stockings and Bumex (9) Depression with anxiety: Continue home mirtazapine, BuSpar Recently had lost a lot of weight and was thought to possibly be from depression but was supposed to follow-up with GI as an outpatient (10) Postmenopausal hormone replacement therapy: Continue home estradiol patch (11) Mild cognitive impairment: No acute issues Continue home memantine Total Time Total Time Spent Total Time Spent (In Minutes): 32 Discharge Plan Discharge Items Patient Disposition: Transfer Inpatient Rehab Fac Reason For Visit: FALL, FACIAL TRAUMA Discharge Diagnosis: fall Condition on Discharge: Good Activity: Resume your previous activity Non-emergency contact: Primary Care Provider Call non-emergency contact if: you have any medication questions Follow-up/Referrals: Sravan Figueroa MD [Primary Care Provider] - Diet: Low Sodium (2gm) Addtl Attending Provider Instructions: Remove sutures on 8/2 PM or 11/03 Continue with rehab. Recommend monitoring potassium daily while at [facility]. Increased potassium to BID. Pending Studies at Discharge: No Stand-Alone Forms: My [facility] Skilled Items Patient informed of condition?: Yes DNR: Yes Discharge Level of Care: Acute rehab Communicable Disease: No Discharge Prognosis: Stable Lines: None Urinary Catheter: No Medications and DC Order Prescriptions: New lidocaine 5 % Adhesive Patch,Medicated 1 patch transdermal QAM Qty: 0 0RF Continued nitroglycerin [Nitrostat] 0.4 mg tablet, sublingual 0.4 mg sublingual Q5M PRN (Reason: chest pain) Qty: 20 1RF Rx Instructions: 0.4 mg tablet under tongue every 5 minutes, up to a series of 3 tabs, as needed for chest discomfort. rosuvastatin [Crestor] 40 mg tablet 40 mg PO HS Qty: 90 3RF Eliquis 5 mg tablet 5 mg PO BID Qty: 180 3RF buspirone 5 mg tablet 5 mg PO BID Qty: 90 3RF memantine [Namenda] 10 mg tablet 10 mg PO BID Qty: 180 1RF bumetanide 2 mg tablet 2 mg PO QAM calcium carbonate [Calcium 600] 600 mg calcium (1,500 mg) Tablet 1,200 mg PO QAM cholecalciferol (vitamin D3) [Vitamin D3] 25 mcg (1,000 unit) Capsule 1,000 unit PO QAM docusate sodium 100 mg Capsule 200 mg PO BID amiodarone 200 mg Tablet 100 mg PO HS Qty: 30 0RF Rx Instructions: 1/2 tab at bedtime acetaminophen 325 mg Tablet 650 mg PO Q4H PRN (Reason: pain) Qty: 60 0RF estradiol 0.075 mg/24 hr patch weekly 0.075 mg transdermal WK Rx Instructions: APPLY 1 PATCH TOPICALLY WEEKLY. CHANGE PATCH ON SUNDAYS pantoprazole 40 mg tablet,delayed release (DR/EC) 40 mg PO DAILYBB Rx Instructions: 1/2 hour prior to breakfast PO daily; cyanocobalamin (vitamin B-12) [Vitamin B-12] 500 mcg Tablet 500 mcg PO QAM ascorbic acid (vitamin C) [Vitamin C] 500 mg Tablet 500 mg PO QAM Saline Mist 0.65 % Aerosol,[place] 1 spray NA TID Qty: 44 0RF mirtazapine 30 mg tablet 30 mg PO HS fluticasone propionate 50 mcg/actuation spray,suspension 2 spray NA DAILY PRN (Reason: Sinus Symptoms) Changed potassium chloride 20 mEq tablet extended release 20 meq PO BID Qty: 30 0RF Discharge Orders: Discharge Order (Routine); Ordered 10/30/22 Ordered By: Kamari Alegria Admission Data Admit Date/Time: 10/27/22 21:50 Attending Provider: Kamari Alegria Admit Provider: Hortensia Parrish Primary Care Provider: Sravan Figueroa Other Providers: Hortensia Parrish ; [facility] ; [facility] Other Interventions: Discharge Summary Assessment (RN) Last Done: 10/30/22 12:27 Coding Level of Care Code 65666 INP/OBS DISCH >30 MIN Diagnoses Fall W19.XXXA Laceration of left eyebrow without complication S01.112A Hypokalemia E87.6 Anemia D64.9 CAD (coronary artery disease) I25.10 Afib I48.91 Atrial fibrillation type: unspecified Chronic heart failure with preserved ejection fraction I50.32 Chronic venous insufficiency I87.2 Depression with anxiety F41.8 Postmenopausal hormone replacement therapy Z79.890 Mild cognitive impairment G31.84
[2022-10-30 10:38] LABS: BUN Creatinine Ratio 16.9 (10-20); Calcium 9.3 mg/dl (8.6-10.3); Creatinine Clr Calc Pharmacy 61.7 ml/min; Est GFR (African American) 86.3 ml/min; Est GFR (Non-African American) 74.5 ml/min; Potassium 3.6 mmol/L (3.5-5.1)
[2022-10-30] MEDS: ACETAMINOPHEN 325 MG TAB PO PRN (14:13)
== END 2022-10-30 14:42 | DRG 92 ==
LOC: ED 17:14 → SUATTDRO 21:50 → 3N 21:50

== ENCOUNTER 2023-02-02 20:19 | Inpatient (IN) ==
[2023-02-02 21:27] LABS: Basophils # (auto) 0.05 K/uL (0.00-0.20); Basophils % (auto) 0.6 %; Eosinophils # (auto) 0.05 K/uL (0.00-0.50); Eosinophils % (auto) 0.6 %; Hematocrit (blood only) 37.7 % (37.0-47.0); Hemoglobin 12.9 g/dl (12.0-16.0); Immature Granulocytes # (auto) 0.02 K/uL (0.01-0.20); Immature Granulocytes % (auto) 0.3 %; Lymphocytes # (auto) 2.93 K/uL (1.20-3.40); Mean Corpuscular Hemoglobin 32.2 pg (25.0-34.0); Mean Corpuscular Hgb Conc 34.2 g/dL (32.0-36.0); Mean Platelet Volume 11.2 fL (9.4-12.4); Monocytes # (auto) 0.74 K/uL (0.11-0.59); Monocytes % (auto) 9.6 %; Neutrophils # (auto) 3.92 K/uL (1.40-6.50); Neutrophils % (auto) 50.9 %; Platelet Count 235 K/uL (130-400); RDW Coefficient of Variation 12.4 % (11.5-14.5); RDW Standard Deviation 42.6 fL (36.4-46.3); Red Blood Count 4.01 M/uL (4.20-5.40); White Blood Count 7.71 K/ul (4.8-10.8)
[2023-02-02 21:31] LABS: Alanine Aminotransferase 13 U/L (7-52); Albumin Globulin Ratio 1.2 (0.9-2); Albumin Level 4.6 gm/dl (3.4-5.0); Alkaline Phosphatase 101 U/L (34-104); Anion Gap 4 (3-11); Aspartate Aminotransferase 26 U/L (13-39); Bilirubin,Total 0.5 mg/dl (0.2-1.0); Blood Urea Nitrogen 16 mg/dl (6-23); Carbon Dioxide 35 mmol/L (21-32); Chloride 99 mmol/L (98-107); Est GFR (African American) 39.8 ml/min; Est GFR (Non-African American) 34.4 ml/min; Globulin 3.8 gm/dl (2.5-4.0); Glucose 86 mg/dl (70-99(Fasting)); Potassium 3.6 mmol/L (3.5-5.1); Sodium 138 mmol/L (136-145); Total Protein 8.4 gm/dl (6.0-8.3)
[2023-02-02 21:37] LABS: Troponin I High Sensitivity 5.9 pg/ml (0-14)
[2023-02-02 21:40] LABS: INR 1.1 (0.9-1.1); Partial Thromboplastin Ratio 1.2; Partial Thromboplastin Time 34.2 Seconds (21.0-31.0); Prothrombin Time 12.3 Seconds (9.0-12.0)
--- NOTE | 2023-02-02 23:43 | Emergency Department Note ---
Impression & Plan Non-ST elevation MD (NSTEMI) ED Provider Note NAME: SPARKLE BROWN AGE: 77 SEX: F : 1945 ARRIVES VIA: Ambulance INFORMANT: Patient, ED PROVIDER(S): Fariha Mobley MD CHIEF COMPLAINT: Chest pain, shortness of breath HPI: This is a 77-year-old female history of CAD, A-fib, CHF, presenting for leg pain, chest pain. Patient is with her daughter who provides most of the history. Daughter saw the patient today and noticed that her legs have swollen significantly in the past 2 days. States that this is much worse than usual. Patient is on Bumetanide and daughter states that when this happens he usually does increase the dosage if her weight increases however her weight has not increased sniffing only. Patient mentioned chest pain to the daughter which concerned her. Otherwise patient notes that she has been significantly weak over the past few days. She feels unsteady on her feet. She states that the pain is midsternal, somewhat sharp. Also mentioned that it is pleuritic as well. ROS: See above HPI for pertinent positives & negatives. A total of 10 systems reviewed and were otherwise negative. PAST MEDICAL HISTORY: See Below PAST SURGICAL HISTORY: See Below FAMILY HISTORY: See Below SOCIAL HISTORY: See Below HOME MEDICATIONS: See Below ALLERGIES: See Below VITALS: See Below PHYSICAL EXAMINATION: General: resting comfortably in no acute distress Head: Normocephalic and atraumatic Eyes: Normal inspection, extraocular muscles intact, no conjunctival pallor Ear, nose, throat: Normal external exam Neck: Normal range of motion Respiratory: Patient is in no respiratory distress, lungs clear to auscultation bilaterally Cardiovascular: RRR without murmur appreciated GI: soft, nontender, no guarding or rebound Extremities: pulses intact with good cap refills, 3+ pitting edema to bilateral lower extremities Neuro: The patient awake and alert, appropriately conversive,no focal decifits Skin: Warm, dry, and intact MEDICAL DECISION MAKING: This is a 77-year-old female with history of CAD, A-fib, CHF presenting for leg pain and chest pain. Patient has 3+ pitting edema to bilateral extremities. Patient has had chest pain. Otherwise she did complain of transient vision loss of left eye. Head CT for this. We will get basic blood work, troponin, D-dimer for PE. lab was reviewed showing no leukocytosis, no anemia, INR 1.1. D-dimer 700, age-adjusted this is negative (770 cutoff), normocytic 35 otherwise creatinine 1.46, elevated from prior. Patient BNP is 114. At this time patient has creatinine elevation, leg swelling/CHF. Will admit for further work-up and diuresis as well as TIA work-up for vision loss Triage Nursing notes reviewed. Prior medical records reviewed Vital Signs: reviewed and remarkable for no significant abnormalities ER treatment provided: See below Diagnostics interpreted by me: ECG: None Cardiac Monitoring: An order was placed for continuous cardiac monitoring. The monitor shows a rate of 60 with sinus rhythm. Laboratory studies: As stated above and show below. Imaging studies: See below. Radiographic imaging was reviewed by myself Consultation(s): None Past Med/Surg History Medical History Orthostasis Near syncope Chronic heart failure with preserved ejection fraction Tremor Hypokalemia Syncope and collapse Open wound of buttock Constipation Nausea & vomiting Vertigo Anemia GI bleed Atypical chest pain Acute hyponatremia CAD (coronary artery disease) Hypercholesterolemia Non-ST elevation MD (NSTEMI) Sleep apnea History of paroxysmal supraventricular tachycardia Diastolic CHF Paroxysmal atrial fibrillation Ocular migraine Obstructive sleep apnea Low back pain with sciatica Dyslipidemia Degenerative disc disease Hypertension CD (celiac disease) Diverticulitis Surgical History S/P transesophageal echocardiogram (JOHANA) Status post placement of implantable loop recorder History of cataract surgery History of incision and drainage History of foot surgery History of cardioversion History of arthroscopy of right shoulder History of fracture of left shoulder History of carpal tunnel release History of hysterectomy History of total knee replacement History of cholecystectomy History of esophagogastroduodenoscopy (EGD) History of colonoscopy History of tonsillectomy History of cardiac cath Family History Mother Family hx of colon cancer Colorectal cancer Brother Prostate cancer Family history of diabetes mellitus Father Dissecting aortic aneurysm Myocardial infarction Grandmother (Maternal) Stroke Other No family history of adverse response to anesthesia Denies family history of Ovarian cancer Breast cancer Social History Smoking Status: Former smoker Tobacco Type: Cigarettes Age Started Using Tobacco: 19; Age Quit Using Tobacco: 27; packs per day: 0.25; Second Hand Exposure: No; Do You Dip or Chew Tobacco: Yes; Hx Alcohol Use: No Hx Substance Use: No Preferred Language: Romanian Communication Ability: Effective Visual Impairment: No Limitations Hearing Ability: Normal Technical Services Specialist Required: No Beliefs That Will Affect Care: None marital status: Current Living Situation: Spouse Current Living Situation Comment: home with 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; 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[employer]; 3 children Feels Safe at Home: Yes Childhood Exposure to Second-Hand Smoke: No Dental Care, Regularly: Yes Physical Activity Frequency: 3-4 Times per Week Seatbelt Use: always Sunscreen Use: Yes Assistive Devices: None Allergies Allergies Allergy/AdvReac Type Severity Reaction Status Date / Time Fish Containing Products Allergy Intermediate Vomiting Verified 01/13/23 12:45 gluten Allergy Intermediate Celiac Verified 01/13/23 12:45 disease shellfish derived Allergy Intermediate Vomiting Verified 01/13/23 12:45 latex Allergy Mild Rash Verified 01/13/23 12:45 amoxicillin AdvReac Intermediate Yeast Verified 01/13/23 12:45 infection cefdinir AdvReac Intermediate nausea Verified 01/13/23 12:45 Cephalosporins AdvReac Intermediate Yeast Verified 01/13/23 12:45 infection clavulanic acid AdvReac Intermediate Yeast Verified 01/13/23 12:45 infection prednisone AdvReac Intermediate Anxiety Verified 01/13/23 12:45 Home Meds Home Medications Medication Instructions Recorded Confirmed docusate sodium 100 mg capsule 200 mg PO BID 04/15/18 02/06/23 calcium carbonate 600 mg calcium 1,200 mg PO QAM 06/08/19 02/06/23 (1,500 mg) tablet (Calcium) cholecalciferol (vitamin D3) 25 1,000 unit PO QAM 06/08/19 02/06/23 mcg (1,000 unit) capsule (Vitamin D3) estradiol 0.075 mg/24 hr weekly 0.075 mg transdermal WK 07/28/22 02/06/23 transdermal patch ascorbic acid (vitamin C) 500 mg 500 mg PO QAM 09/03/22 02/06/23 tablet (Vitamin C) cyanocobalamin (vitamin B-12) 500 500 mcg PO QAM 09/03/22 02/06/23 mcg tablet (Vitamin B-12) mirtazapine 30 mg tablet 30 mg PO HS 09/27/22 02/06/23 fluticasone propionate 50 2 spray NA DAILY PRN Sinus Symptoms 10/27/22 02/06/23 mcg/actuation nasal spray,suspension amiodarone 200 mg tablet 100 mg PO HS 11/08/22 02/06/23 potassium chloride 20 mEq 40 meq PO QAM 02/03/23 02/06/23 tablet,extended release Previous Rx's Medication Instructions Recorded nitroglycerin 0.4 mg sublingual 0.4 mg sublingual Q5M PRN chest 09/25/21 tablet (Nitrostat) pain #20 tabs apixaban 5 mg tablet (Eliquis) 5 mg PO BID #180 tabs 04/29/22 acetaminophen 325 mg tablet 650 mg (2 x 325 mg) PO Q4H PRN 05/30/22 pain #60 tabs sodium chloride 0.65 % nasal spray 1 spray NA TID #44 mL 09/04/22 aerosol (Saline Mist) bumetanide 2 mg tablet 2 mg PO QAM #90 tabs 12/16/22 memantine 10 mg tablet (Namenda) 10 mg PO BID #180 tabs 01/06/23 pantoprazole 40 mg tablet,delayed 40 mg PO DAILYBB #90 tabs 01/06/23 release buspirone 5 mg tablet 5 mg PO BID #90 tabs 02/06/23 rosuvastatin 40 mg tablet (Crestor) 40 mg PO HS #90 tabs 02/06/23 Results & Data (ED) Vital Signs Vital Signs - 24 hr 02/02/23 20:25 02/02/23 22:02 02/02/23 22:30 Temperature 36.9 C Temperature Source Temporal Artery Scan Pulse Rate 70 60 65 Pulse Rate from SpO2 Sensor 64 Pulse Rhythm Regular Pulse Strength Normal Respiratory Rate 19 20 Respiratory Effort / Characteristics Non-Labored Spontaneous Respiratory Depth Normal Respiratory Pattern Regular Blood Pressure 131/56 L 133/58 L Blood Pressure Mean 81 83 Blood Pressure Position Sitting Pulse Oximetry 96 99 Oxygen Delivery Method Room Air Sepsis Recent Fever Within 48 Hours No Sepsis New/Unexplained Change in Mental Status N/A Sepsis Action Taken by Nursing No Action Required 02/02/23 23:00 02/03/23 00:00 02/03/23 00:30 Temperature Temperature Source Pulse Rate 69 59 L 64 Pulse Rate from SpO2 Sensor 63 59 L 59 L Pulse Rhythm Pulse Strength Respiratory Rate 19 16 18 Respiratory Effort / Characteristics Respiratory Depth Respiratory Pattern Blood Pressure 118/49 L 124/58 L 114/52 L Blood Pressure Mean 72 80 72 Blood Pressure Position Pulse Oximetry 94 100 96 Oxygen Delivery Method Sepsis Recent Fever Within 48 Hours Sepsis New/Unexplained Change in Mental Status Sepsis Action Taken by Nursing 02/03/23 01:00 02/03/23 01:00 02/03/23 01:30 Temperature Temperature Source Pulse Rate 124 H 57 L Pulse Rate from SpO2 Sensor 60 57 L Pulse Rhythm Pulse Strength Respiratory Rate 24 17 Respiratory Effort / Characteristics Respiratory Depth Respiratory Pattern Blood Pressure 113/62 113/62 120/51 L Blood Pressure Mean 79 73 74 Blood Pressure Position Pulse Oximetry 98 100 Oxygen Delivery Method Sepsis Recent Fever Within 48 Hours Sepsis New/Unexplained Change in Mental Status Sepsis Action Taken by Nursing 02/03/23 01:30 Temperature Temperature Source Pulse Rate Pulse Rate from SpO2 Sensor Pulse Rhythm Pulse Strength Respiratory Rate Respiratory Effort / Characteristics Respiratory Depth Respiratory Pattern Blood Pressure 120/51 L Blood Pressure Mean 83 Blood Pressure Position Pulse Oximetry Oxygen Delivery Method Sepsis Recent Fever Within 48 Hours Sepsis New/Unexplained Change in Mental Status Sepsis Action Taken by Nursing Laboratory Data 02/05/23 05:42 02/05/23 05:42 Lab Results 02/02/23 02/02/23 02/02/23 Range/Units 20:58 22:32 23:56 WBC 7.71 (4.8-10.8) K/ul RBC 4.01 L (4.20-5.40) M/uL Hgb 12.9 (12.0-16.0) g/dl Hct 37.7 (37.0-47.0) % MCV 94.0 (80.0-100.0) fL MCH 32.2 (25.0-34.0) pg MCHC 34.2 (32.0-36.0) g/dL RDW Std Deviation 42.6 (36.4-46.3) fL RDW Coeff of Malinda 12.4 (11.5-14.5) % Plt Count 235 (130-400) K/uL MPV 11.2 (9.4-12.4) fL Immature Gran % (Auto) 0.3 % Neut % (Auto) 50.9 % Lymph % (Auto) 38.0 % Callaway % (Auto) 9.6 % Eos % (Auto) 0.6 % Baso % (Auto) 0.6 % Neut # (Auto) 3.92 (1.40-6.50) K/uL Lymph # (Auto) 2.93 (1.20-3.40) K/uL Callaway # (Auto) 0.74 H (0.11-0.59) K/uL Eos # (Auto) 0.05 (0.00-0.50) K/uL Baso # (Auto) 0.05 (0.00-0.20) K/uL Immature Gran # (Auto) 0.02 (0.01-0.20) K/uL PT 12.3 H (9.0-12.0) Seconds INR 1.1 (0.9-1.1) APTT 34.2 H (21.0-31.0) Seconds PTT Ratio 1.2 D-Dimer 700 H* (0-500) ug/L FEU Sodium 138 (136-145) mmol/L Potassium 3.6 (3.5-5.1) mmol/L Chloride 99 (98-107) mmol/L Carbon Dioxide 35 H (21-32) mmol/L Anion Gap 4 (3-11) BUN 16 (6-23) mg/dl Creatinine 1.46 H (0.6-1.2) mg/dl Est Cr Clr Drug Dosing Not Reportable Est GFR ( Amer) 39.8 ml/min Est GFR (Non-Af Amer) 34.4 ml/min BUN/Creatinine Ratio 11.0 (10-20) Glucose 86 (70-99(Fasting)) mg/dl Calcium 10.0 (8.6-10.3) mg/dl Total Bilirubin 0.5 (0.2-1.0) mg/dl AST 26 (13-39) U/L ALT 13 (7-52) U/L Alkaline Phosphatase 101 (34-104) U/L Troponin I High Sens 5.9 6.9 (0-14) pg/ml B-Natriuretic Peptide 114 H (0-100) pg/ml Total Protein 8.4 H (6.0-8.3) gm/dl Albumin 4.6 (3.4-5.0) gm/dl Globulin 3.8 (2.5-4.0) gm/dl Albumin/Globulin Ratio 1.2 (0.9-2) Administered Medications Discontinued Medications Amiodarone HCl (Amiodarone 200 Mg Tab) 100 mg PO HS [facility] Stop: 03/05/23 20:59 Last Admin: 02/04/23 20:06 Dose: 100 mg Documented By: Admin: 02/03/23 20:57 Dose: 100 mg Documented By: JHONATAN Apixaban (Apixaban 5 Mg Tablet) 5 mg PO BID [facility] Stop: 03/05/23 08:59 Last Admin: 02/05/23 08:29 Dose: 5 mg Documented By: Admin: 02/04/23 20:06 Dose: 5 mg Documented By: Admin: 02/04/23 08:54 Dose: 5 mg Documented By: Admin: 02/03/23 20:57 Dose: 5 mg Documented By: Admin: 02/03/23 08:36 Dose: 5 mg Documented By: CRISTINE Buspirone HCl (Buspirone 5 Mg Tab) 5 mg PO BID [facility] Stop: 03/05/23 08:59 Last Admin: 02/05/23 08:28 Dose: 5 mg Documented By: Admin: 02/04/23 20:06 Dose: 5 mg Documented By: Admin: 02/04/23 08:54 Dose: 5 mg Documented By: Admin: 02/03/23 20:57 Dose: 5 mg Documented By: Admin: 02/03/23 08:36 Dose: 5 mg Documented By: CRISTINE Docusate Sodium (Docusate Sodium 100 Mg Cap) 200 mg PO BID [facility] Stop: 03/05/23 08:59 Last Admin: 02/05/23 08:28 Dose: 200 mg Documented By: Admin: 02/04/23 20:05 Dose: 200 mg Documented By: Admin: 02/04/23 08:54 Dose: 200 mg Documented By: Admin: 02/03/23 20:58 Dose: 200 mg Documented By: Admin: 02/03/23 08:36 Dose: 200 mg Documented By: CRISTINE Bumetanide 2 mg/ Syringe 8 mls @ 4 mls/min IV BID@0900,1700 [facility] Stop: 03/05/23 08:59 Last Admin: 02/05/23 08:29 Dose: 4 mls/min Documented By: Admin: 02/04/23 16:52 Dose: 4 mls/min Documented By: Admin: 02/04/23 10:51 Dose: Not Given Documented By: Admin: 02/03/23 16:29 Dose: Not Given Documented By: Admin: 02/03/23 08:38 Dose: 4 mls/min Documented By: CRISTINE Bumetanide 2 mg/ Syringe 8 mls @ 4 mls/min IV ONE ONE Stop: 02/04/23 11:24 Last Admin: 02/04/23 12:44 Dose: 4 mls/min Documented By: RAUL Memantine (Memantine Hcl 10 Mg Tab) 10 mg PO BID [facility] Stop: 03/05/23 08:59 Last Admin: 02/05/23 08:28 Dose: 10 mg Documented By: Admin: 02/04/23 20:07 Dose: 10 mg Documented By: Admin: 02/04/23 10:00 Dose: 10 mg Documented By: Admin: 02/03/23 20:58 Dose: 10 mg Documented By: Admin: 02/03/23 08:37 Dose: 10 mg Documented By: CRISTINE Mirtazapine (Mirtazapine Tab 15 Mg Tab) 30 mg PO HS [facility] Stop: 03/05/23 20:59 Last Admin: 02/04/23 20:06 Dose: 30 mg Documented By: Admin: 02/03/23 20:58 Dose: 30 mg Documented By: JHONATAN Pantoprazole Sodium (Pantoprazole 40 Mg Tab) 40 mg PO DAILYBB [facility] Stop: 03/05/23 06:29 Last Admin: 02/05/23 05:42 Dose: 40 mg Documented By: Admin: 02/04/23 06:17 Dose: 40 mg Documented By: Admin: 02/03/23 05:52 Dose: 40 mg Documented By: JHONATAN Potassium Chloride (Potassium Chloride Crtab 20 Meq Tabcr) 40 meq PO QAM [facility] Stop: 03/05/23 08:59 Last Admin: 02/05/23 08:29 Dose: 40 meq Documented By: Admin: 02/04/23 08:54 Dose: 40 meq Documented By: Admin: 02/03/23 08:35 Dose: 40 meq Documented By: CRISTINE Rosuvastatin Calcium (Rosuvastatin Calcium 20 Mg Tab) 40 mg PO HS [facility] Stop: 03/05/23 20:59 Last Admin: 02/04/23 20:05 Dose: 40 mg Documented By: Admin: 02/03/23 21:00 Dose: 40 mg Documented By: JHONATAN Imaging Data Radiologist's Impression: Head CT 02/02/23 22:58 Exam(s): CT HEAD Without Contrast EXAM: CT Head Without Intravenous Contrast CLINICAL HISTORY: Reason for exam: vision loss. TECHNIQUE: Axial computed tomography images of the head/brain without intravenous contrast. CTDI is 36.18 mGy and DLP is 624.41 mGy-cm. Automated exposure control was utilized for the study. A dose lowering technique was utilized adhering to the principles of ALARA. COMPARISON: No relevant prior studies available. FINDINGS: No acute intracranial hemorrhage. No midline shift or mass effect. The territorial taylor-white matter differentiation is maintained throughout. Age-related cerebral volume loss. Periventricular and subcortical white matter hypoattenuation, consistent with chronic microangiopathy. The visualized orbits appear grossly unremarkable. The calvarium is intact. The visualized paranasal sinuses and mastoid air cells are grossly clear. IMPRESSION: No acute intracranial hemorrhage, midline shift, or mass effect. Electronically signed by: Hesham Beltran MD 02/03/23 00:41 AM Discharge Plan Visit Data Chief Complaint: Cardiac Assessment Stated Complaint: CHF, SWELLING IN LEGS ED Provider: Fariha Mobley Discharge Problem: Non-ST elevation MD (NSTEMI) Patient Disposition: Admitted As Inpatient Discharge Instructions Interventions: ED Discharge Assessment Last Done: 02/03/23 02:06
[2023-02-03 00:42] LABS: D Dimer 700 ug/L FEU (0-500)
--- NOTE | 2023-02-03 00:42 | CT Scan Report ---
Exam(s): CT HEAD Without Contrast EXAM: CT Head Without Intravenous Contrast CLINICAL HISTORY: Reason for exam: vision loss. TECHNIQUE: Axial computed tomography images of the head/brain without intravenous contrast. CTDI is 36.18 mGy and DLP is 624.41 mGy-cm. Automated exposure control was utilized for the study. A dose lowering technique was utilized adhering to the principles of ALARA. COMPARISON: No relevant prior studies available. FINDINGS: No acute intracranial hemorrhage. No midline shift or mass effect. The territorial taylor-white matter differentiation is maintained throughout. Age-related cerebral volume loss. Periventricular and subcortical white matter hypoattenuation, consistent with chronic microangiopathy. The visualized orbits appear grossly unremarkable. The calvarium is intact. The visualized paranasal sinuses and mastoid air cells are grossly clear. IMPRESSION: No acute intracranial hemorrhage, midline shift, or mass effect. Electronically signed by: Hesham Beltran MD 02/03/23 00:41 AM
--- NOTE | 2023-02-03 01:36 | History & Physical Report ---
Date of Service February 03, 2023 Assessment & Plan (1) Acute on chronic heart failure with preserved ejection fraction (HFpEF): Plan: 77yo female presents with worsening bilateral LE edema as well as shortness of breath. She appears slightly volume overloaded on exam with 3+ edema, bibasilar crackles. Labs with BNP of 114 which is on the low end of normal for her. -Admit to medical with telemetry -Bumex 2mg IV BID -Monitor I/Os, daily weights. Dry weight reported to be 145-150#. Daughter states her scale at home has been consistently 148.9# -BID BMPs to monitor electrolytes and renal function (2) ASTRID (acute kidney injury): Plan: Mild elevation of BUN and Cr from baseline -Monitor renal function closely with diuresis -BID BMPs -Avoid nephrotoxic agents -Renal dosing where needed - GFR 34 (3) Afib: Plan: Presently in NSR -Continue Amiodarone -Continue Eliquis (4) CAD (coronary artery disease): Plan: -COntinue Crestor (5) Sleep apnea: Plan: Patient is non-compliant with her CPAP at home. States that the mask does not fit her well. -CPAP qHS History of Present Illness Chief Complaint: shortness of breath and edema Primary Care Provider: Sravan Figueroa MD Ximena Maxwell is a 77yo female with history of chronic diastolic heart failure, EF of 55-60% per echo 12/2021 presenting with shortness of breath and chest discomfort. Patient reports several days of worsening bilateral LE edema. She has been taking her daily Bumex as prescribed. Her weight has been stable and unchanged at 148.9# on her home scale so she has not taken any additional Bumex. Today she was in her kitchen going through some recipes when she became short of breath. She called her daughter and sounded very short of breath on the phone. When her daughter arrived patient began experiencing pleuritic chest discomfort - stabbing pain. Otherwise no complaints. No fever, cough, abdominal pain, nausea, vomiting or diarrhea. Patient has been compliant with her medications. In the ER she is afebrile, HD stable, adequate oxygenation on RA Allergies Allergy/AdvReac Type Severity Reaction Status Date / Time Fish Containing Products Allergy Intermediate Vomiting Verified 01/13/23 12:45 gluten Allergy Intermediate Celiac Verified 01/13/23 12:45 disease shellfish derived Allergy Intermediate Vomiting Verified 01/13/23 12:45 latex Allergy Mild Rash Verified 01/13/23 12:45 amoxicillin AdvReac Intermediate Yeast Verified 01/13/23 12:45 infection cefdinir AdvReac Intermediate nausea Verified 01/13/23 12:45 Cephalosporins AdvReac Intermediate Yeast Verified 01/13/23 12:45 infection clavulanic acid AdvReac Intermediate Yeast Verified 01/13/23 12:45 infection prednisone AdvReac Intermediate Anxiety Verified 01/13/23 12:45 Home Medications Medication Instructions Recorded Confirmed Type docusate sodium 100 mg capsule 200 mg PO BID 04/15/18 02/03/23 History calcium carbonate 600 mg calcium 1,200 mg PO QAM 06/08/19 02/03/23 History (1,500 mg) tablet (Calcium) cholecalciferol (vitamin D3) 25 1,000 unit PO QAM 06/08/19 02/03/23 History mcg (1,000 unit) capsule (Vitamin D3) nitroglycerin 0.4 mg sublingual 0.4 mg sublingual Q5M PRN chest 09/25/21 02/03/23 Rx tablet (Nitrostat) pain #20 tabs rosuvastatin 40 mg tablet (Crestor) 40 mg PO HS #90 tabs 02/21/22 02/03/23 Rx apixaban 5 mg tablet (Eliquis) 5 mg PO BID #180 tabs 04/29/22 02/03/23 Rx acetaminophen 325 mg tablet 650 mg (2 x 325 mg) PO Q4H PRN 05/30/22 02/03/23 Rx pain #60 tabs buspirone 5 mg tablet 5 mg PO BID #90 tabs 06/13/22 02/03/23 Rx estradiol 0.075 mg/24 hr weekly 0.075 mg transdermal WK 07/28/22 02/03/23 History transdermal patch ascorbic acid (vitamin C) 500 mg 500 mg PO QAM 09/03/22 02/03/23 History tablet (Vitamin C) cyanocobalamin (vitamin B-12) 500 500 mcg PO QAM 09/03/22 02/03/23 History mcg tablet (Vitamin B-12) sodium chloride 0.65 % nasal spray 1 spray NA TID #44 mL 09/04/22 02/03/23 Rx aerosol (Saline Mist) mirtazapine 30 mg tablet 30 mg PO HS 09/27/22 02/03/23 History fluticasone propionate 50 2 spray NA DAILY PRN Sinus Symptoms 10/27/22 02/03/23 History mcg/actuation nasal spray,suspension amiodarone 200 mg tablet 100 mg PO HS 11/08/22 02/03/23 History bumetanide 2 mg tablet 2 mg PO QAM #90 tabs 12/16/22 02/03/23 Rx memantine 10 mg tablet (Namenda) 10 mg PO BID #180 tabs 01/06/23 02/03/23 Rx pantoprazole 40 mg tablet,delayed 40 mg PO DAILYBB #90 tabs 01/06/23 02/03/23 Rx release potassium chloride 20 mEq 40 meq PO QAM 02/03/23 02/03/23 History tablet,extended release Past Med/Surg History Medical History Orthostasis Near syncope Chronic heart failure with preserved ejection fraction Tremor Hypokalemia Syncope and collapse Open wound of buttock Constipation Nausea & vomiting Vertigo Anemia RECEIVED 2 UNITS [facility] 04/2021 RECENT ADMISSION GI bleed reason for Endoscopy Atypical chest pain Acute hyponatremia CAD (coronary artery disease) Medically managed by cardiology NSTEMI 07/27/20- cath demonstrated small branch vessel disease involving small OM to, not amenable to intervention. Hypercholesterolemia Non-ST elevation CT (NSTEMI) 07/27/20 Sleep apnea CPAP History of paroxysmal supraventricular tachycardia with atrial tachycardia Diastolic CHF Paroxysmal atrial fibrillation Ocular migraine Obstructive sleep apnea Low back pain with sciatica Dyslipidemia Degenerative disc disease Hypertension CD (celiac disease) "Does not" follow gluten-free diet Diverticulitis 2013 Surgical History S/P transesophageal echocardiogram (JOHANA) Status post placement of implantable loop recorder Implanted 12/2019 - Follows Dr. Yoo > to see Dr. Powers this afternoon for check History of cataract surgery R/L History of incision and drainage Right foot History of foot surgery R/L feet "to straighten toes" History of cardioversion x2, most recent 04/2019 History of arthroscopy of right shoulder RCR History of fracture of left shoulder Plate + screws History of carpal tunnel release R/L History of hysterectomy JOANNA + BSO History of total knee replacement Left x2, right x1 History of cholecystectomy History of esophagogastroduodenoscopy (EGD) History of colonoscopy History of tonsillectomy History of cardiac cath 2015, 07/28/20 ([place]) > no stents Family History Mother Family hx of colon cancer Colorectal cancer Brother Prostate cancer Family history of diabetes mellitus Father Dissecting aortic aneurysm Myocardial infarction Grandmother (Maternal) Stroke Other No family history of adverse response to anesthesia Denies family history of Ovarian cancer Breast cancer Social History Smoking Status: Former smoker Tobacco Type: Cigarettes Age Started Using Tobacco: 19; Age Quit Using Tobacco: 27; packs per day: 0.25; Second Hand Exposure: No; Do You Dip or Chew Tobacco: No; Hx Alcohol Use: No Hx Substance Use: No Preferred Language: Czech Communication Ability: Effective Visual Impairment: No Limitations Hearing Ability: Normal Clinical Informatics Educator Required: No Beliefs That Will Affect Care: None marital status: Current Living Situation: Spouse Current Living Situation Comment: home with 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; 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[employer]; 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 Feels Safe at Home: Yes Childhood Exposure to Second-Hand Smoke: No Dental Care, Regularly: Yes Physical Activity Frequency: 3-4 Times per Week Seatbelt Use: always Sunscreen Use: Yes Assistive Devices: Walker Review of Systems Review of Systems: All systems reviewed & are unremarkable except as noted in HPI & below Physical Exam Physical Exam: General: patient resting comfortably, NAD, non-toxic in appearance, AA&O x 4 Skin: warm, dry, intact, no rashes or lesions HEENT: NC/AT, PERRL, EOMI, anicteric sclera, conjunctiva without injection, external ear normal to inspection and nontender, nares patent, moist mucus membranes, dentition intact, no oropharyngeal lesions, neck supple, trachea midline, no LAD, no thyromegaly, no JVD Heart: +S1/S2, regular with ectopy, no m/r/g Lungs: equal air entry bilaterally, crackles in bilateral bases, no rhonchi/wheezes Abd: +BS, soft, NT/ND, no masses/organomegaly/ascites Ext: warm, 2+ pulses in UE/LE bilaterally, 3+ pitting edema of bilateral LE to knees, erythema to bilateral LE with slight warmth Neuro: nonfocal, patient AA&O x 4, speech intact, no facial droop, moving all extremities on command with equal strength 5/5 Results & Data Results & Data Vital Signs (Past 12 Hours) Vital Signs Temp Pulse Resp BP Pulse Ox O2 Del Method 02/03/23 00:30 64 18 114/52 L 96 02/03/23 00:00 59 L 16 124/58 L 100 02/02/23 23:00 69 19 118/49 L 94 02/02/23 22:30 65 20 133/58 L 99 02/02/23 22:02 60 02/02/23 20:25 36.9 C 70 19 131/56 L 96 Room Air Laboratory Results Laboratory Results WBC 7.71 K/ul (4.8-10.8) 02/02/23 20:58 RBC 4.01 M/uL (4.20-5.40) L 02/02/23 20:58 Hgb 12.9 g/dl (12.0-16.0) 02/02/23 20:58 Hct 37.7 % (37.0-47.0) 02/02/23 20:58 MCV 94.0 fL (80.0-100.0) 02/02/23 20:58 MCH 32.2 pg (25.0-34.0) 02/02/23 20:58 MCHC 34.2 g/dL (32.0-36.0) 02/02/23 20:58 RDW Std Deviation 42.6 fL (36.4-46.3) 02/02/23 20:58 RDW Coeff of Malinda 12.4 % (11.5-14.5) 02/02/23 20:58 Plt Count 235 K/uL (130-400) 02/02/23 20:58 MPV 11.2 fL (9.4-12.4) 02/02/23 20:58 Immature Gran % (Auto) 0.3 % 02/02/23 20:58 Neut % (Auto) 50.9 % 02/02/23 20:58 Lymph % (Auto) 38.0 % 02/02/23 20:58 Jasper % (Auto) 9.6 % 02/02/23 20:58 Eos % (Auto) 0.6 % 02/02/23 20:58 Baso % (Auto) 0.6 % 02/02/23 20:58 Neut # (Auto) 3.92 K/uL (1.40-6.50) 02/02/23 20:58 Lymph # (Auto) 2.93 K/uL (1.20-3.40) 02/02/23 20:58 Jasper # (Auto) 0.74 K/uL (0.11-0.59) H 02/02/23 20:58 Eos # (Auto) 0.05 K/uL (0.00-0.50) 02/02/23 20:58 Baso # (Auto) 0.05 K/uL (0.00-0.20) 02/02/23 20:58 Immature Gran # (Auto) 0.02 K/uL (0.01-0.20) 02/02/23 20:58 PT 12.3 Seconds (9.0-12.0) H 02/02/23 20:58 INR 1.1 (0.9-1.1) 02/02/23 20:58 APTT 34.2 Seconds (21.0-31.0) H 02/02/23 20:58 PTT Ratio 1.2 02/02/23 20:58 D-Dimer 700 ug/L FEU (0-500) H* 02/02/23 23:56 Sodium 138 mmol/L (136-145) 02/02/23 20:58 Potassium 3.6 mmol/L (3.5-5.1) 02/02/23 20:58 Chloride 99 mmol/L (98-107) 02/02/23 20:58 Carbon Dioxide 35 mmol/L (21-32) H 02/02/23 20:58 Anion Gap 4 (3-11) 02/02/23 20:58 BUN 16 mg/dl (6-23) 02/02/23 20:58 Creatinine 1.46 mg/dl (0.6-1.2) H 02/02/23 20:58 Est Cr Clr Drug Dosing Not Reportable 02/02/23 20:58 Est GFR ( Amer) 39.8 ml/min 02/02/23 20:58 Est GFR (Non-Af Amer) 34.4 ml/min 02/02/23 20:58 BUN/Creatinine Ratio 11.0 (10-20) 02/02/23 20:58 Glucose 86 mg/dl (70-99(Fasting)) 02/02/23 20:58 Calcium 10.0 mg/dl (8.6-10.3) 02/02/23 20:58 Total Bilirubin 0.5 mg/dl (0.2-1.0) 02/02/23 20:58 AST 26 U/L (13-39) 02/02/23 20:58 ALT 13 U/L (7-52) 02/02/23 20:58 Alkaline Phosphatase 101 U/L (34-104) 02/02/23 20:58 Troponin I High Sens 6.9 pg/ml (0-14) 02/02/23 22:32 B-Natriuretic Peptide 114 pg/ml (0-100) H 02/02/23 22:32 Total Protein 8.4 gm/dl (6.0-8.3) H 02/02/23 20:58 Albumin 4.6 gm/dl (3.4-5.0) 02/02/23 20:58 Globulin 3.8 gm/dl (2.5-4.0) 02/02/23 20:58 Albumin/Globulin Ratio 1.2 (0.9-2) 02/02/23 20:[address] 02/02/23 22:58 Exam(s): CT HEAD Without Contrast EXAM: CT Head Without Intravenous Contrast CLINICAL HISTORY: Reason for exam: vision loss. TECHNIQUE: Axial computed tomography images of the head/brain without intravenous contrast. CTDI is 36.18 mGy and DLP is 624.41 mGy-cm. Automated exposure control was utilized for the study. A dose lowering technique was utilized adhering to the principles of ALARA. COMPARISON: No relevant prior studies available. FINDINGS: No acute intracranial hemorrhage. No midline shift or mass effect. The territorial taylor-white matter differentiation is maintained throughout. Age-related cerebral volume loss. Periventricular and subcortical white matter hypoattenuation, consistent with chronic microangiopathy. The visualized orbits appear grossly unremarkable. The calvarium is intact. The visualized paranasal sinuses and mastoid air cells are grossly clear. IMPRESSION: No acute intracranial hemorrhage, midline shift, or mass effect. Electronically signed by: Hesham Beltran MD 02/03/23 00:41 AM ECG Additional Comments: EKG per my interpretation with NSR at 62, normal axis, WH=648, QRS=88, IYo=075, no acute ischemic changes PG Care Time/CCT Total # of Minutes Spent Total Time Spent with Patient: Total time spent is greater than 50% in coordination of care (as documented) at patient's floor/unit and/or counseling patient: Coding Level of Care Code 81337 INT INP/OBS CARE 3/75MIN Diagnoses Acute on chronic heart failure with preserved ejection fraction (HFpEF) I50.33 ASTRID (acute kidney injury) N17.9 Afib I48.91 Atrial fibrillation type: unspecified CAD (coronary artery disease) I25.10 Sleep apnea G47.30 (3) Afib Atrial fibrillation type: unspecified Qualified Code(s): I48.91 - Unspecified atrial fibrillation
[2023-02-03] MEDS ORDERED: ACETAMINOPHEN 325 MG TAB PO PRN (02:33)
[2023-02-03] MEDS ORDERED: ONDANSETRON INJ 2 MG/ML 2 ML VIAL IV PRN (02:33)
--- NOTE | 2023-02-03 02:39 | Ultrasound Report ---
Exam(s): US VENOUS RIGHT LOWER EXTREMITY EXAM: US Duplex Right Lower Extremity Veins CLINICAL HISTORY: Reason for exam: Leg swelling, pain. TECHNIQUE: Real-time duplex ultrasound scan of the right lower extremity veins integrating B-mode two-dimensional vascular structure, Doppler spectral analysis, color flow Doppler imaging and compression. COMPARISON: None. FINDINGS: Deep veins: Unremarkable. No DVT in the visualized common femoral, femoral, proximal deep femoral or popliteal veins. The veins demonstrate normal color flow, are normally compressible, with normal phasic flow and/or augmentation response. Superficial veins: Unremarkable. No thrombus in the visualized great saphenous vein. Soft tissues: Nonspecific edema involving the right calf. No popliteal cyst. IMPRESSION: No ultrasonographic evidence of deep venous thrombosis involving the right lower extremity. Electronically signed by: Casandra Woods MD 02/03/23 02:38 AM
[2023-02-03] MEDS: PANTOprazole 40 MG TAB PO SCH (05:52)
--- NOTE | 2023-02-03 07:17 | XRay Report ---
XR chest 1V not portable CLINICAL HISTORY: Chest pain, nonspecific COMPARISON STUDY: Chest CT October 04, 2022. Chest radiograph December 11, 2022. FINDINGS: A loop recorder and proximal left humeral internal fixation are incidentally noted. Lung vo lumes are normal. Lungs are clear. There is no pneumothorax or pleural effusion. Cardiac size is norm al. Mediastinal contours are normal. There is no evidence for pulmonary edema. IMPRESSION: No acute cardiopulmonary findings. No change in appearance of the chest. ACT 112: Negative or not required by law. Electronically signed by: Kimani De M.D. 02/03/2023 7:15 AM
[2023-02-03 07:49] LABS: BUN Creatinine Ratio 11.4 (10-20); Calcium 8.9 mg/dl (8.6-10.3); Creatinine Clr Calc Pharmacy 45.3 ml/min; Est GFR (African American) 59.3 ml/min; Est GFR (Non-African American) 51.2 ml/min; Potassium 3.5 mmol/L (3.5-5.1)
[2023-02-03] MEDS: POTASSIUM CHLORIDE CRTAB 20 MEQ TABCR PO SCH (08:35)
[2023-02-03] MEDS: APIXABAN 5 MG TABLET PO SCH ×2 (08:36→20:57)
[2023-02-03] MEDS: DOCUSATE SODIUM 100 MG CAP PO SCH ×2 (08:36→20:58)
[2023-02-03] MEDS: busPIRone 5 MG TAB PO SCH ×2 (08:36→20:57)
[2023-02-03] MEDS: MEMANTINE HCL 10 MG TAB PO SCH ×2 (08:37→20:58)
[2023-02-03] MEDS: BUMETANIDE 2 MG in SYRINGE 0 ML IV SCH ×2 (08:38→16:29)
--- NOTE | 2023-02-03 12:20 | Electrocardiogram Report ---
Test Reason : Blood Pressure : / mmHG Vent. Rate : 062 BPM Atrial Rate : 062 BPM P-R Int : 180 ms QRS Dur : 088 ms QT Int : 438 ms P-R-T Axes : 077 051 063 degrees QTc Int : 444 ms Normal sinus rhythm When compared with ECG of 11-DEC-2022 14:07, No significant change was found Confirmed by Gus Powers ([id number]) on 02/03/2023 12:20:21 PM Referred By: REFERRED SELF Confirmed By:Leon Powers
[2023-02-03 17:06] LABS: BUN Creatinine Ratio 10.1 (10-20); Creatinine Clr Calc Pharmacy 43.6 ml/min; Est GFR (African American) 56.7 ml/min; Est GFR (Non-African American) 48.9 ml/min; Potassium 3.8 mmol/L (3.5-5.1)
[2023-02-03] MEDS: AMIODARONE 200 MG TAB PO SCH (20:57)
[2023-02-03] MEDS: MIRTAZAPINE TAB 15 MG TAB PO SCH (20:58)
[2023-02-03] MEDS: ROSUVASTATIN CALCIUM 20 MG TAB PO SCH (21:00)
[2023-02-04] MEDS: PANTOprazole 40 MG TAB PO SCH (06:17)
[2023-02-04 06:32] LABS: Hematocrit (blood only) 32.2 % (37.0-47.0); Mean Corpuscular Hemoglobin 32.3 pg (25.0-34.0); Mean Corpuscular Hgb Conc 34.2 g/dL (32.0-36.0); Mean Corpuscular Volume 94.4 fL (80.0-100.0); Mean Platelet Volume 11.3 fL (9.4-12.4); Platelet Count 202 K/uL (130-400); RDW Coefficient of Variation 12.6 % (11.5-14.5); RDW Standard Deviation 43.4 fL (36.4-46.3); Red Blood Count 3.41 M/uL (4.20-5.40); White Blood Count 5.81 K/ul (4.8-10.8)
[2023-02-04 07:18] LABS: BUN Creatinine Ratio 9.5 (10-20); Calcium 8.7 mg/dl (8.6-10.3); Est GFR (African American) 52.6 ml/min; Est GFR (Non-African American) 45.4 ml/min
[2023-02-04] MEDS: busPIRone 5 MG TAB PO SCH ×2 (08:54→20:06)
[2023-02-04] MEDS: APIXABAN 5 MG TABLET PO SCH ×2 (08:54→20:06)
[2023-02-04] MEDS: POTASSIUM CHLORIDE CRTAB 20 MEQ TABCR PO SCH (08:54)
[2023-02-04] MEDS: DOCUSATE SODIUM 100 MG CAP PO SCH ×2 (08:54→20:05)
[2023-02-04] MEDS: MEMANTINE HCL 10 MG TAB PO SCH ×2 (10:00→20:07)
[2023-02-04] MEDS: BUMETANIDE 2 MG in SYRINGE 0 ML IV SCH ×3 (10:00→16:52)
[2023-02-04] MEDS ORDERED: BUMETANIDE 2 MG in SYRINGE 0 ML IV ONE (11:23)
--- NOTE | 2023-02-04 11:31 | Hospitalist Progress Note ---
Date of Service February 04, 2023 Assessment & Plan (1) Acute on chronic heart failure with preserved ejection fraction (HFpEF): Plan: 77yo female presents with worsening bilateral LE edema as well as shortness of breath. She appears slightly volume overloaded on exam with 3+ edema, bibasilar crackles. Labs with BNP of 114 which is on the low end of normal for her. -Admit to medical with telemetry -Bumex 2mg IV BID, PM dose was held on 02/03 due to hypotension, will reorder on 02/04 -Monitor I/Os, daily weights. Dry weight reported to be 145-150#. Daughter states her scale at home has been consistently 148.9# -BID BMPs to monitor electrolytes and renal function -Patient has been diuresing, weight has gone down, Is and Os, do not appear to be accurate. Due to chest pain, will consult cardio as she did have some typical features. will check limited echo for wall motion abnormalities and check a trop (2) ASTRID (acute kidney injury): Plan: Mild elevation of BUN and Cr from baseline -Monitor renal function closely with diuresis -BID BMPs -Avoid nephrotoxic agents -Renal dosing where needed - GFR 34 (3) Afib: Plan: Presently in NSR -Continue Amiodarone -Continue Eliquis (4) CAD (coronary artery disease): Plan: -COntinue Crestor (5) Sleep apnea: Plan: Patient is non-compliant with her CPAP at home. States that the mask does not fit her well. -CPAP qHS Admission and Anticipated Discharge Date Admission Date: February 03, 2023 Subjective 77 yo female reports chest tightness this AM. Patient reports this was intermittent and perhaps lasted a less than half an hour. It was midsternum and non radiating, prressure like in nature, occurred when nichole hale was walking from bathroom back to bed. Patient reports she had this chest pain when she was admitted. Review of Systems Review of Systems: All systems reviewed & are unremarkable except as noted in HPI & below Physical Exam Physical Exam: General: patient resting comfortably, NAD, non-toxic in appearance, AA&O x 4 Skin: warm, dry, intact, no rashes or lesions HEENT: NC/AT, PERRL, EOMI Heart: +S1/S2, regular with ectopy, no m/r/g Lungs: equal air entry bilaterally, crackles in bilateral bases, no rhonchi/wheezes Abd: +BS, soft, NT/ND, no masses/organomegaly/ascites Ext: warm, 2+ pulses in UE/LE bilaterally, 3+ pitting edema of bilateral LE to knees, erythema to bilateral LE appears improved. Neuro: nonfocal, patient AA&O x 4 Results & Data Results & Data Vital Signs (Past 12 Hours) Vital Signs Temp Pulse Pulse Resp BP Pulse Ox O2 Del Method 02/04/23 10:52 97/50 L 02/04/23 10:24 52 L 02/04/23 08:15 36.6 C 55 L 18 100/43 L 94 Room Air 02/04/23 02:55 36.2 C L 59 L 16 110/66 99 Room Air PG Care Time/CCT Total # of Minutes Spent Total Time Spent with Patient: Total time spent is greater than 50% in coordination of care (as documented) at patient's floor/unit and/or counseling patient: Coding Level of Care Code 17319 SUB INP/OBS CARE 3/50MIN Diagnoses Acute on chronic heart failure with preserved ejection fraction (HFpEF) I50.33 ASTRID (acute kidney injury) N17.9 Afib I48.91 Atrial fibrillation type: unspecified CAD (coronary artery disease) I25.10 Sleep apnea G47.30 (3) Afib Atrial fibrillation type: unspecified Qualified Code(s): I48.91 - Unspecified atrial fibrillation
--- NOTE | 2023-02-04 14:40 | XCELERA ---
[id number]
[2023-02-04 15:23] LABS: BUN Creatinine Ratio 9.8 (10-20); Calcium 9.1 mg/dl (8.6-10.3); Est GFR (African American) 49.5 ml/min; Est GFR (Non-African American) 42.7 ml/min
--- NOTE | 2023-02-04 19:41 | XRay Report ---
XR chest 2V PA/lateral CLINICAL HISTORY: chf TECHNIQUE: 2 views of the chest were obtained. Comparison: Comparison is made to chest radiograph 02/02/2023 FINDINGS: Loop recorder is seen. Calcified aortic knob is seen. Emphysema is seen. No evidence of pleural effus ion or pneumothorax. IMPRESSION: No acute abnormality and in particular no evidence of pulmonary edema. ACT 112: Negative or not required by law. Electronically signed by: Andrey Carrasco M.D. 02/04/2023 7:39 PM
[2023-02-04] MEDS: ROSUVASTATIN CALCIUM 20 MG TAB PO SCH (20:05)
[2023-02-04] MEDS: AMIODARONE 200 MG TAB PO SCH (20:06)
[2023-02-04] MEDS: MIRTAZAPINE TAB 15 MG TAB PO SCH (20:06)
[2023-02-05] MEDS: PANTOprazole 40 MG TAB PO SCH (05:42)
[2023-02-05 06:10] LABS: Hematocrit (blood only) 33.7 % (37.0-47.0); Hemoglobin 11.5 g/dl (12.0-16.0); Mean Corpuscular Hemoglobin 31.6 pg (25.0-34.0); Mean Corpuscular Hgb Conc 34.1 g/dL (32.0-36.0); Mean Corpuscular Volume 92.6 fL (80.0-100.0); Mean Platelet Volume 10.9 fL (9.4-12.4); Platelet Count 196 K/uL (130-400); RDW Coefficient of Variation 12.5 % (11.5-14.5); RDW Standard Deviation 42.9 fL (36.4-46.3); Red Blood Count 3.64 M/uL (4.20-5.40); White Blood Count 5.96 K/ul (4.8-10.8)
[2023-02-05 06:12] LABS: BUN Creatinine Ratio 11.8 (10-20); Calcium 8.7 mg/dl (8.6-10.3); Creatinine Clr Calc Pharmacy 46.6 ml/min; Est GFR (African American) 61.4 ml/min; Potassium 3.7 mmol/L (3.5-5.1)
[2023-02-05 07:14] LABS: Troponin I High Sensitivity 5.2 pg/ml (0-14)
[2023-02-05] MEDS: busPIRone 5 MG TAB PO SCH (08:28)
[2023-02-05] MEDS: MEMANTINE HCL 10 MG TAB PO SCH (08:28)
[2023-02-05] MEDS: DOCUSATE SODIUM 100 MG CAP PO SCH (08:28)
[2023-02-05] MEDS: POTASSIUM CHLORIDE CRTAB 20 MEQ TABCR PO SCH (08:29)
[2023-02-05] MEDS: BUMETANIDE 2 MG in SYRINGE 0 ML IV SCH (08:29)
[2023-02-05] MEDS: APIXABAN 5 MG TABLET PO SCH (08:29)
--- NOTE | 2023-02-05 08:39 | Cardiology Consultation ---
Date of Consultation February 05, 2023 Assessment & Plan (1) Chronic heart failure with preserved ejection fraction: (2) Chest pain: (3) CAD (coronary artery disease): (4) Afib: (5) Current use of nursing home anticoagulation: Plan 1. Congestive heart failure: She presents with fluid retention, however this seems to be peripheral edema, not present on chest x-ray to suggest pulmonary edema although she does have some shortness of breath. She had a weight done on presentation which is similar to outpatient weights, but could be misleading on a different scale or different state of dress. Agree with diuresis, although her symptoms have resolved and she does not have edema today. Perhaps her edema is primarily positional not due to excess fluid. 2. Chest pain: I doubt this is anginal, although it is conceivable since she does have small vessel disease however it is not associated with an enzyme abnormality and the duration would suggest that it should fit were coronary in nature so I would not investigate it further. Perhaps this is a manifestation of some degree of congestive heart failure. 3. Coronary disease: She has had several catheterizations, although not for several years, but has shown no large vessel disease. Without electrocardiographic changes and without classic enzyme abnormalities I would not consider catheterization at this time. 4. Atrial fibrillation: She has a history of atrial fibrillation and has a loop recorder in place, however the arrhythmia appears to be very well controlled on her current medical regimen of amiodarone. She has had none during her hospitalization. 5. Anticoagulation: She should remain on anticoagulation, she is on Eliquis, her dose is 5 mg which is correct for her. I would continue it. History of Present Illness Reason for Consultation: Leg swelling, chest discomfort Attending Physician: Hortensia Parrish MD History of Present Illness This is a 77-year-old woman who who has a history of diastolic congestive heart failure and is followed in our heart failure clinic. She has had catheterization in March 2016 which showed no significant coronary artery disease. A repeat catheterization July 28, 2020 also showed no significant coronary artery disease although there was branch vessel disease. By echocardio graphy her left ventricular function has remained normal including this admission on February 04, 2023. She also has a history of atrial fibrillation, she has had cardioversion several times including June 21, 2018 and April 29, 2019. She has been maintained on anticoagulation and on amiodarone. She had an episode of syncope and does have a history of brief runs of nonsustained supraventricular tachycardia, she wore an event monitor for a month between September and October 2019 but went on to have a loop recorder implanted on December 05, [address] Powers. As of her last office visit January 23, 2023 she was doing well from the arrhythmia standpoint with some mild bradycardia without symptoms and 6 symptom activated episodes with no significant arrhythmia identified. Atrial fibrillation was not identified and she remains on Eliquis and amiodarone. She presents now with swollen legs for several days, apparently the patient also mention chest pain (the patient is a poor historian) and her daughter was concerned and brought her to the emergency room. The patient did report weakness for several days and unsteadiness on her feet. Evaluation in the hospital included an electrocardiogram on presentation which shows sinus rhythm at 62 bpm and is essentially normal. The echocardiogram is normal as noted above. She did have a chest x-ray with no evidence of pulmonary edema. Laboratory studies are notable for a slightly increased BNP (around 300) and high-sensitivity troponin x2 ranging from 5.2-6 (normal). I discussed her presentation with her, she seems to have a fairly good recollection of it. She tells me that she had chest pressure lasting for 5 hours in addition to shortness of breath and leg swelling. She reports that the chest discomfort was present until shortly after admission. Today she feels much better and is not short of breath and does not have chest pressure. I also discussed salt and water management and she seems to have a good understanding, she avoids salt and tells me that she uses very little and although she does not measure her fluid intake it does not sound as though she drinks a lot of fluid. She may keep her legs down more than she should at home. Allergies Allergy/AdvReac Type Severity Reaction Status Date / Time Fish Containing Products Allergy Intermediate Vomiting Verified 01/13/23 12:45 gluten Allergy Intermediate Celiac Verified 01/13/23 12:45 disease shellfish derived Allergy Intermediate Vomiting Verified 01/13/23 12:45 latex Allergy Mild Rash Verified 01/13/23 12:45 amoxicillin AdvReac Intermediate Yeast Verified 01/13/23 12:45 infection cefdinir AdvReac Intermediate nausea Verified 01/13/23 12:45 Cephalosporins AdvReac Intermediate Yeast Verified 01/13/23 12:45 infection clavulanic acid AdvReac Intermediate Yeast Verified 01/13/23 12:45 infection prednisone AdvReac Intermediate Anxiety Verified 01/13/23 12:45 Home Medications Medication Instructions Recorded Confirmed Type docusate sodium 100 mg capsule 200 mg PO BID 04/15/18 02/03/23 History calcium carbonate 600 mg calcium 1,200 mg PO QAM 06/08/19 02/03/23 History (1,500 mg) tablet (Calcium) cholecalciferol (vitamin D3) 25 1,000 unit PO QAM 06/08/19 02/03/23 History mcg (1,000 unit) capsule (Vitamin D3) nitroglycerin 0.4 mg sublingual 0.4 mg sublingual Q5M PRN chest 09/25/21 02/03/23 Rx tablet (Nitrostat) pain #20 tabs rosuvastatin 40 mg tablet (Crestor) 40 mg PO HS #90 tabs 02/21/22 02/03/23 Rx apixaban 5 mg tablet (Eliquis) 5 mg PO BID #180 tabs 04/29/22 02/03/23 Rx acetaminophen 325 mg tablet 650 mg (2 x 325 mg) PO Q4H PRN 05/30/22 02/03/23 Rx pain #60 tabs buspirone 5 mg tablet 5 mg PO BID #90 tabs 06/13/22 02/03/23 Rx estradiol 0.075 mg/24 hr weekly 0.075 mg transdermal WK 07/28/22 02/03/23 History transdermal patch ascorbic acid (vitamin C) 500 mg 500 mg PO QAM 09/03/22 02/03/23 History tablet (Vitamin C) cyanocobalamin (vitamin B-12) 500 500 mcg PO QAM 09/03/22 02/03/23 History mcg tablet (Vitamin B-12) sodium chloride 0.65 % nasal spray 1 spray NA TID #44 mL 09/04/22 02/03/23 Rx aerosol (Saline Mist) mirtazapine 30 mg tablet 30 mg PO HS 09/27/22 02/03/23 History fluticasone propionate 50 2 spray NA DAILY PRN Sinus Symptoms 10/27/22 02/03/23 History mcg/actuation nasal spray,suspension amiodarone 200 mg tablet 100 mg PO HS 11/08/22 02/03/23 History bumetanide 2 mg tablet 2 mg PO QAM #90 tabs 12/16/22 02/03/23 Rx memantine 10 mg tablet (Namenda) 10 mg PO BID #180 tabs 01/06/23 02/03/23 Rx pantoprazole 40 mg tablet,delayed 40 mg PO DAILYBB #90 tabs 01/06/23 02/03/23 Rx release potassium chloride 20 mEq 40 meq PO QAM 02/03/23 02/03/23 History tablet,extended release Patient History Medical History Orthostasis Near syncope Chronic heart failure with preserved ejection fraction Tremor Hypokalemia Syncope and collapse Open wound of buttock Constipation Nausea & vomiting Vertigo Anemia RECEIVED 2 UNITS [facility] 04/2021 RECENT ADMISSION GI bleed reason for Endoscopy Atypical chest pain Acute hyponatremia CAD (coronary artery disease) Medically managed by cardiology NSTEMI 07/27/20- cath demonstrated small branch vessel disease involving small OM to, not amenable to intervention. Hypercholesterolemia Non-ST elevation DC (NSTEMI) 07/27/20 Sleep apnea CPAP History of paroxysmal supraventricular tachycardia with atrial tachycardia Diastolic CHF Paroxysmal atrial fibrillation Ocular migraine Obstructive sleep apnea Low back pain with sciatica Dyslipidemia Degenerative disc disease Hypertension CD (celiac disease) "Does not" follow gluten-free diet Diverticulitis 2013 Surgical History S/P transesophageal echocardiogram (JOHAAN) Status post placement of implantable loop recorder Implanted 12/2019 - Follows Dr. Yoo > to see Dr. Powers this afternoon for check History of cataract surgery R/L History of incision and drainage Right foot History of foot surgery R/L feet "to straighten toes" History of cardioversion x2, most recent 04/2019 History of arthroscopy of right shoulder RCR History of fracture of left shoulder Plate + screws History of carpal tunnel release R/L History of hysterectomy JOANNA + BSO History of total knee replacement Left x2, right x1 History of cholecystectomy History of esophagogastroduodenoscopy (EGD) History of colonoscopy History of tonsillectomy History of cardiac cath 2016, 07/28/20 ([place]) > no stents Family History Mother Family hx of colon cancer Colorectal cancer Brother Prostate cancer Family history of diabetes mellitus Father Dissecting aortic aneurysm Myocardial infarction Grandmother (Maternal) Stroke Other No family history of adverse response to anesthesia Denies family history of Ovarian cancer Breast cancer Social History Smoking Status: Former smoker Tobacco Type: Cigarettes Age Started Using Tobacco: 19; Age Quit Using Tobacco: 27; packs per day: 0.25; Smoking End Date: 1972; Second Hand Exposure: No; Do You Dip or Chew Tobacco: Yes; Hx Alcohol Use: No Hx Substance Use: No Preferred Language: Pashto Communication Ability: Effective Visual Impairment: No Limitations Hearing Ability: Normal Instructor Extension Work Required: No Beliefs That Will Affect Care: None marital status: Current Living Situation: Spouse Current Living Situation Comment: home with current occupational status: retired Other Information That Helps Us Care for You: 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 HEENT: Unremarkable Neck: No jugular venous distention, carotid pulses are normal and equal bilaterally without bruits. Pulmonary: Clear to auscultation bilaterally. Cardiac: Regular rhythm with no murmur, gallop or rub. Abdomen: Soft, nontender with normal bowel sounds. Extremities: No edema. Distal pulses intact. Neurologic: No focal findings. Gait was not tested. Skin: No rash, ecchymoses or petechiae. Results & Data Vital Signs (Past 12 Hours) Vital Signs Temp Pulse Pulse Resp BP Pulse Ox O2 Del Method 02/05/23 07:57 36.5 C 55 L 16 118/52 L 98 Room Air 02/05/23 03:51 36.5 C 56 L 16 109/60 95 Room Air 02/04/23 23:25 36.4 C L 65 16 106/44 L 97 Room Air 11/04/23 22:15 60 Laboratory Results Cardiac Enzymes 02/04/23 02/05/23 Range/Units 11:38 05:42 Troponin I High Sens 6.0 5.2 (0-14) pg/ml B-Natriuretic Peptide 289 H (0-100) pg/ml Coagulation 02/05/23 Range/Units 05:42 B-Natriuretic Peptide 289 H (0-100) pg/ml CBC 02/05/23 Range/Units 05:42 WBC 5.96 (4.8-10.8) K/ul RBC 3.64 L (4.20-5.40) M/uL Hgb 11.5 L (12.0-16.0) g/dl Hct 33.7 L (37.0-47.0) % Plt Count 196 (130-400) K/uL Comprehensive Metabolic Panel 02/04/23 02/05/23 Range/Units 14:36 05:42 Sodium 139 139 (136-145) mmol/L Potassium 4.0 3.7 (3.5-5.1) mmol/L Chloride 103 102 (98-107) mmol/L Carbon Dioxide 33 H 34 H (21-32) mmol/L BUN 12 12 (6-23) mg/dl Creatinine 1.22 H 1.02 (0.6-1.2) mg/dl Glucose 94 87 (70-99(Fasting)) mg/dl Calcium 9.1 8.7 (8.6-10.3) mg/dl Intake and Output 02/04/23 02/05/23 02/05/23 23:59 06:59 14:59 Intake Total Output Total Balance Intake: Oral Output: Urine Other: Other Intake Source Diagnostic Findings Telemetry: She has remained in sinus rhythm during hospitalization with heart rates often in the 50s, however her heart rate has not dropped below 50 and she seems to have an appropriate increase in heart rate from time to time when she is active. No atrial arrhythmias of significance. PG Care Time/CCT Total # of Minutes Spent Total Time Spent with Patient: Total time spent is greater than 50% in coordination of care (as documented) at patient's floor/unit and/or counseling patient: Coding Level of Care Code 64405 INT INP/OBS CARE 3/75MIN Diagnoses Chronic heart failure with preserved ejection fraction I50.32 Chest pain R07.9 Chest pain type: unspecified Coronary artery disease involving [place] coronary artery of [place] heart, unspecified whether angina present I25.10 Associated angina: unspecified whether angina present Coronary Disease-Associated Artery/Lesion type: [place] artery [place] vs. transplanted heart: [place] heart Afib I48.91 Atrial fibrillation type: unspecified Current use of nursing home anticoagulation Z79.01 (2) Chest pain Chest pain type: unspecified Qualified Code(s): R07.9 - Chest pain, unspecified (3) CAD (coronary artery disease) Associated angina: unspecified whether angina present Coronary Disease- Associated Artery/Lesion type: [place] artery [place] vs. transplanted heart: [place] heart Qualified Code(s): I25.10 - Atherosclerotic heart disease of [place] coronary artery without angina pectoris (4) Afib Atrial fibrillation type: unspecified Qualified Code(s): I48.91 - Unspecified atrial fibrillation
--- NOTE | 2023-02-05 13:38 | Discharge Summary ---
Discharge Summary Date of Service February 05, 2023 Notes For Next Care Provider Medication Changes From Visit None Admission HPI Per Admitting Provider Ximena Maxwell is a 77yo female with history of chronic diastolic heart failure, EF of 55-60% per echo 12/2021 presenting with shortness of breath and chest discomfort. Patient reports several days of worsening bilateral LE edema. She has been taking her daily Bumex as prescribed. Her weight has been stable and unchanged at 148.9# on her home scale so she has not taken any additional Bumex. Today she was in her kitchen going through some recipes when she became short of breath. She called her daughter and sounded very short of breath on the phone. When her daughter arrived patient began experiencing pleuritic chest discomfort - stabbing pain. Otherwise no complaints. No fever, cough, abdominal pain, nausea, vomiting or diarrhea. Patient has been compliant with her medications. In the ER she is afebrile, HD stable, adequate oxygenation on RA Principal Dx & Hospital Course #1 = Principal Diagnosis (1) Acute on chronic heart failure with preserved ejection fraction (HFpEF): 77yo female presents with worsening bilateral LE edema as well as shortness of breath. She appears slightly volume overloaded on exam with 3+ edema, bibasilar crackles. Labs with BNP of 114 which is on the low end of normal for her. -Admit to medical with telemetry-had no arrhythmias -Bumex 2mg IV BID was given and had great improvement in her SOB and CP -acute on chronic HFpEF 2/2 dietary and fluid indiscretion most ikely -Dry weight reported to be 148#. Daughter states her scale at home has been consistently 148.9#--> daughter reports pt has not been eating much at all--> perhaps she is losing weight from loss of muscle mass and new dry weight should be 145 lbs which is what it was on day of discharge -continue same dose of po diuretics at home and f/u with CHF clinic - chest pain from CHF now resolved, serial trop negative x 4, no ischemic changes on ECG, ECHO normal -consult cardio appreciated-no changes to regimen andno further eval needed (2) ASTRID (acute kidney injury): Mild elevation of BUN and Cr from baseline on admission now resolved, 2/2 acute CHF (3) Afib: Presently in NSR -Continue Amiodarone -Continue Eliquis (4) CAD (coronary artery disease): -COntinue Crestor (5) Sleep apnea: Patient is non-compliant with her CPAP at home. States that the mask does not fit her well. -CPAP qHS Plan Dispo-much improved, stable for dc to home Discharge Exam Constitutional WD/WN, vitals as above Respiratory normal respiratory effort, lungs clear to auscultation Cardiovascular Rate/Rhythm: regular rate and regular rhythm Heart Sounds: no murmur Extremities: + edema (trace ankle edema) Gastrointestinal (Abdomen) normal bowel sounds, soft, nontender, no hepatosplenomegaly Psychiatric A+Ox3, euthymic affect Updated Medication List Medication Instructions Recorded Confirmed Type docusate sodium 100 mg capsule 200 mg PO BID 04/15/18 02/03/23 History calcium carbonate 600 mg calcium 1,200 mg PO QAM 06/08/19 02/03/23 History (1,500 mg) tablet (Calcium) cholecalciferol (vitamin D3) 25 1,000 unit PO QAM 06/08/19 02/03/23 History mcg (1,000 unit) capsule (Vitamin D3) nitroglycerin 0.4 mg sublingual 0.4 mg sublingual Q5M PRN chest 09/25/21 02/03/23 Rx tablet (Nitrostat) pain #20 tabs rosuvastatin 40 mg tablet (Crestor) 40 mg PO HS #90 tabs 02/21/22 02/03/23 Rx apixaban 5 mg tablet (Eliquis) 5 mg PO BID #180 tabs 04/29/22 02/03/23 Rx acetaminophen 325 mg tablet 650 mg (2 x 325 mg) PO Q4H PRN 05/30/22 02/03/23 Rx pain #60 tabs buspirone 5 mg tablet 5 mg PO BID #90 tabs 06/13/22 02/03/23 Rx estradiol 0.075 mg/24 hr weekly 0.075 mg transdermal WK 07/28/22 02/03/23 History transdermal patch ascorbic acid (vitamin C) 500 mg 500 mg PO QAM 09/03/22 02/03/23 History tablet (Vitamin C) cyanocobalamin (vitamin B-12) 500 500 mcg PO QAM 09/03/22 02/03/23 History mcg tablet (Vitamin B-12) sodium chloride 0.65 % nasal spray 1 spray NA TID #44 mL 09/04/22 02/03/23 Rx aerosol (Saline Mist) mirtazapine 30 mg tablet 30 mg PO HS 09/27/22 02/03/23 History fluticasone propionate 50 2 spray NA DAILY PRN Sinus Symptoms 10/27/22 02/03/23 History mcg/actuation nasal spray,suspension amiodarone 200 mg tablet 100 mg PO HS 11/08/22 02/03/23 History bumetanide 2 mg tablet 2 mg PO QAM #90 tabs 12/16/22 02/03/23 Rx memantine 10 mg tablet (Namenda) 10 mg PO BID #180 tabs 01/06/23 02/03/23 Rx pantoprazole 40 mg tablet,delayed 40 mg PO DAILYBB #90 tabs 01/06/23 02/03/23 Rx release potassium chloride 20 mEq 40 meq PO QAM 02/03/23 02/03/23 History tablet,extended release Hospital Stay Data Consultations 02/03/23 01:01 ED Decision to Admit Stat 02/04/23 11:26 Consult Cardiology Routine Diagnostic Imagining Performed 02/02/23 22:[address] [CT head/brain wo con] Stat US venous duplex leg [US venous doppler LE RT] Stat ECHO Pending Results Patient Have Any Pending Studies at Discharge: No Discharge Instructions Given to Patient (Per Discharging Provider) IT IS VERY IMPORTANT THAT YOU WEAR COMPRESSION STOCKINGS TO HELP KEEP YOUR SWELLING DOWN IN YOUR LEGS. You should cut out on drinking sodas and drinks that have sodium in them. Please also try not to eat any foods that are prepackaged or canned. Lunch meats and ruiz also have a lot of sodium. Your new DRY WEIGHT is 145 lbs. If you weight more than 145 lbs, please take your extra Bumex dose in the afternoon. The chest pain that you had was from your congestive heart failure and was NOT from a heart attack. Call your Primary Care doctor if any of the following symptoms or problems start or get worse: * Shortness of breath or difficulty breathing * Wake up at night short of breath * Chest pain * Cough * Swelling of your hands, feet, or legs * More fatigued or tired with your normal activity * Palpitations - sudden fast heart beats WEIGHT * Weigh yourself every morning after using the bathroom. * Use the same scale. * Wear the same amount of clothing. * Write your weight down on a chart. * Call your Primary Care doctor if you gain more than 2-3 pounds in 1-2 days. MEDICATIONS * Use this discharge instruction sheet for medication instructions. * Take your medications at the time your doctor ordered. * Do not skip a dose of your medicines. * If you miss a dose of medicine, take it as soon as possible, but DO NOT DOUBLE A DOSE. * Read your medicine information when you get home. * Know all of the side effects of your medicine. If in doubt, ask your pharmacist * Call your Primary Care doctor's office if you have any side effects. * Be sure all of your doctors know what medicine and herbs you take (including cold, flu, and herbal medicine). Take the following with you to your follow-up doctor appointments: * Weight Chart * Medication List * List of questions Do not drink excessive alcohol, beer or wine. Total Time Total Time Spent Total Time Spent (In Minutes): 35 min Coding Level of Care Code 08658 INP/OBS DISCH >30 MIN Diagnoses Acute on chronic heart failure with preserved ejection fraction (HFpEF) I50.33 ASTRID (acute kidney injury) N17.9 Afib I48.91 Atrial fibrillation type: unspecified Coronary artery disease involving tribe coronary artery of tribe heart, unspecified whether angina present I25.10 Coronary Disease-Associated Artery/Lesion type: tribe artery [place] vs. transplanted heart: tribe heart Associated angina: unspecified whether angina present Sleep apnea G47.30
[2023-02-06] MEDS ORDERED: BUMETANIDE 2 MG in SYRINGE 0 ML IV SCH (09:00)
== END 2023-02-05 15:35 | disposition home or self-care (01) | DRG 292 ==
LOC: ED 20:19 → SUATTDRO 02-03 01:35 → 2N 02-03 01:35

== ENCOUNTER 2023-05-13 18:29 | Inpatient (IN) ==
[2023-05-13 19:13] LABS: Basophils # (auto) 0.04 K/uL (0.00-0.20); Basophils % (auto) 0.7 %; Eosinophils # (auto) 0.07 K/uL (0.00-0.50); Eosinophils % (auto) 1.2 %; Hematocrit (blood only) 33.3 % (37.0-47.0); Immature Granulocytes # (auto) 0.01 K/uL (0.01-0.20); Immature Granulocytes % (auto) 0.2 %; Lymphocytes % (auto) 41.7 %; Mean Corpuscular Hemoglobin 31.6 pg (25.0-34.0); Mean Corpuscular Volume 95.7 fL (80.0-100.0); Mean Platelet Volume 11.3 fL (9.4-12.4); Monocytes # (auto) 0.61 K/uL (0.11-0.59); Monocytes % (auto) 10.2 %; Neutrophils # (auto) 2.77 K/uL (1.40-6.50); Platelet Count 178 K/uL (130-400); RDW Coefficient of Variation 14.1 % (11.5-14.5); RDW Standard Deviation 49.9 fL (36.4-46.3); Red Blood Count 3.48 M/uL (4.20-5.40)
--- NOTE | 2023-05-13 19:25 | XRay Report ---
SINGLE VIEW CHEST CLINICAL HISTORY: Atypical chest pain. FINDINGS: A PA chest radiograph is compared to study dated 05/05/2023. An electronic device projects ov er the lower chest. The cardiomediastinal silhouette is unremarkable noting atherosclerotic calcifica tion of the thoracic aorta. The lungs and pleural spaces are clear. No pneumothorax is seen. The skel etal structures are osteopenic. Chronic deformity and postsurgical changes noted in the left proximal humerus. IMPRESSION: No active disease in the chest. ACT 112: Negative or not required by law. Electronically signed by: Michael Smith M.D. 05/13/2023 7:24 PM
[2023-05-13 19:30] LABS: Alanine Aminotransferase 13 U/L (7-52); Albumin Globulin Ratio 1.3 (0.9-2); Alkaline Phosphatase 91 U/L (34-104); Anion Gap 7 (3-11); Aspartate Aminotransferase 26 U/L (13-39); BUN Creatinine Ratio 16.4 (10-20); Bilirubin,Total 0.4 mg/dl (0.2-1.0); Blood Urea Nitrogen 19 mg/dl (6-23); Calcium 8.9 mg/dl (8.6-10.3); Carbon Dioxide 32 mmol/L (21-32); Chloride 102 mmol/L (98-107); Est GFR (African American) 52.6 ml/min; Est GFR (Non-African American) 45.4 ml/min; Glucose 81 mg/dl (70-99(Fasting)); Potassium 3.6 mmol/L (3.5-5.1); Sodium 141 mmol/L (136-145)
--- NOTE | 2023-05-13 19:33 | Emergency Department Note ---
History of Present Illness General Chief complaint: Shortness of Breath/Dyspnea Stated complaint: SWELLING IN FEET, SOB, FAINTING Time Seen by Provider: 05/13/23 19:22 History of Present Illness 77-year-old patient presents emergency department with a 1 week history of increased swelling to the bilateral lower extremities. Patient has had increased shortness of breath dyspnea on exertion for the past few days. Of note the patient was in our emergency department after a fall and hitting her head. Patient is currently on Eliquis for paroxysmal A-fib. Patient was seen in the heart failure clinic 2 days ago and had increased weights at the time. Patient was started on spironolactone. Patient is also receiving 4 mg of Bumex daily. For the past 2 days patient has had orthopnea and dyspnea on exertion. Patient denies any current chest pain hemoptysis pleuritic chest pain or fever. There are no other mitigating or alleviating factors Home Medications Medication Instructions Recorded Confirmed Type docusate sodium 100 mg capsule 200 mg PO BID 04/15/18 05/13/23 History calcium carbonate 600 mg calcium 1,200 mg PO QAM 06/08/19 05/13/23 History (1,500 mg) tablet (Calcium) cholecalciferol (vitamin D3) 25 1,000 unit PO QAM 06/08/19 05/13/23 History mcg (1,000 unit) capsule (Vitamin D3) nitroglycerin 0.4 mg sublingual 0.4 mg sublingual Q5M PRN chest 09/25/21 05/13/23 Rx tablet (Nitrostat) pain #20 tabs apixaban 5 mg tablet (Eliquis) 5 mg PO BID #180 tabs 04/29/22 05/13/23 Rx acetaminophen 325 mg tablet 650 mg (2 x 325 mg) PO Q4H PRN 05/30/22 05/13/23 Rx pain #60 tabs estradiol 0.075 mg/24 hr weekly 0.075 mg transdermal WK 07/28/22 05/13/23 History transdermal patch ascorbic acid (vitamin C) 500 mg 500 mg PO QAM 09/03/22 05/13/23 History tablet (Vitamin C) cyanocobalamin (vitamin B-12) 500 500 mcg PO QAM 09/03/22 05/13/23 History mcg tablet (Vitamin B-12) mirtazapine 30 mg tablet 30 mg PO HS 09/27/22 05/13/23 History fluticasone propionate 50 2 spray NA DAILY PRN Sinus Symptoms 10/27/22 05/13/23 History mcg/actuation nasal spray,suspension pantoprazole 40 mg tablet,delayed 40 mg PO DAILYBB #90 tabs 01/06/23 05/13/23 Rx release potassium chloride 20 mEq 40 meq PO QAM 02/03/23 05/13/23 History tablet,extended release buspirone 5 mg tablet 5 mg PO BID #90 tabs 02/06/23 05/13/23 Rx rosuvastatin 40 mg tablet (Crestor) 40 mg PO HS #90 tabs 02/06/23 05/13/23 Rx amiodarone 200 mg tablet 100 mg (1/2 x 200 mg) PO HS #45 03/31/23 05/13/23 Rx tabs sodium chloride 0.65 % nasal spray 1 spray NA TID PRN Congestion 04/03/23 05/13/23 History aerosol (Saline Mist) bumetanide 2 mg tablet 2 mg PO QAM 04/12/23 05/13/23 History lidocaine 5 % topical patch 1 patch topical DAILY #15 ea 05/11/23 05/13/23 Rx (Lidoderm) spironolactone 25 mg tablet 25 mg PO DAILY #30 tabs 05/12/23 05/13/23 Rx memantine 10 mg tablet 10 mg PO BID 05/13/23 05/13/23 History Allergies Allergy/AdvReac Type Severity Reaction Status Date / Time Fish Containing Products Allergy Intermediate Vomiting Verified 05/11/23 15:19 gluten Allergy Intermediate Celiac Verified 05/11/23 15:19 disease shellfish derived Allergy Intermediate Vomiting Verified 05/11/23 15:19 latex Allergy Mild Rash Verified 05/11/23 15:19 amoxicillin AdvReac Intermediate Yeast Verified 05/11/23 15:19 infection cefdinir AdvReac Intermediate nausea Verified 05/11/23 15:19 Cephalosporins AdvReac Intermediate Yeast Verified 05/11/23 15:19 infection clavulanic acid AdvReac Intermediate Yeast Verified 05/11/23 15:19 infection prednisone AdvReac Intermediate Anxiety Verified 05/11/23 15:19 Past Med/Surg History Medical History Chest pain Orthostasis Near syncope Chronic heart failure with preserved ejection fraction Tremor Hypokalemia Syncope and collapse Open wound of buttock Constipation Nausea & vomiting Vertigo Anemia RECEIVED [address] [facility] 04/2021 RECENT ADMISSION GI bleed reason for Endoscopy Atypical chest pain Acute hyponatremia CAD (coronary artery disease) Medically managed by cardiology NSTEMI 07/27/20- cath demonstrated small branch vessel disease involving small OM to, not amenable to intervention. Hypercholesterolemia Non-ST elevation MA (NSTEMI) 07/27/20 Sleep apnea CPAP History of paroxysmal supraventricular tachycardia with atrial tachycardia Diastolic CHF Paroxysmal atrial fibrillation Ocular migraine Obstructive sleep apnea Low back pain with sciatica Dyslipidemia Degenerative disc disease Hypertension CD (celiac disease) "Does not" follow gluten-free diet Diverticulitis 2013 Surgical History S/P transesophageal echocardiogram (JOHANA) Status post placement of implantable loop recorder Implanted 12/2019 - Follows Dr. Yoo > to see Dr. Powers this afternoon for check History of cataract surgery R/L History of incision and drainage Right foot History of foot surgery R/L feet "to straighten toes" History of cardioversion x2, most recent 04/2019 History of arthroscopy of right shoulder RCR History of fracture of left shoulder Plate + screws History of carpal tunnel release R/L History of hysterectomy JOANNA + BSO History of total knee replacement Left x2, right x1 History of cholecystectomy History of esophagogastroduodenoscopy (EGD) History of colonoscopy History of tonsillectomy History of cardiac cath 2015, 07/28/20 (MD) > no stents Family History Mother Family hx of colon cancer Colorectal cancer Brother Prostate cancer Family history of diabetes mellitus Father Dissecting aortic aneurysm Myocardial infarction Grandmother (Maternal) Stroke Other No family history of adverse response to anesthesia Denies family history of Ovarian cancer Breast cancer Social History Smoking Status: Never smoker Tobacco Type: Cigarettes Age Started Using Tobacco: 19; Age Quit Using Tobacco: 27; packs per day: 0.25; Second Hand Exposure: No; Do You Dip or Chew Tobacco: Yes; Hx Alcohol Use: No Hx Substance Use: No Preferred Language: Kazakh Communication Ability: Effective Visual Impairment: No Limitations Hearing Ability: Normal [employer] Required: No Beliefs That Will Affect Care: None marital status: Current Living Situation: Spouse Current Living Situation Comment: home with 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; 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[place]; 3 children Feels Safe at Home: Yes Childhood Exposure to Second-Hand Smoke: No Dental Care, Regularly: Yes Physical Activity Frequency: 3-4 Times per Week Seatbelt Use: always Sunscreen Use: Yes Assistive Devices: None Review of Systems A total of 10 systems reviewed and were otherwise negative Cardiovascular: + dyspnea, + dyspnea on exertion and + orthopnea; no chest pain Physical Exam Vital Signs Vital Signs - 24 hr 05/13/23 18:44 05/13/23 19:11 05/13/23 19:11 Temperature 36.6 C Temperature Source Temporal Artery Scan Pulse Rate 63 Respiratory Rate 17 Respiratory Effort / Characteristics Non-Labored Respiratory Depth Normal Blood Pressure 101/65 Blood Pressure Mean 77 Pulse Oximetry 97 97 97 Oxygen Delivery Method Room Air Room Air Room Air Oxygen Flow Rate 0 Sepsis Recent Fever Within 48 Hours No Sepsis New/Unexplained Change in Mental Status N/A Sepsis Action Taken by Nursing No Action Required 05/13/23 19:25 Temperature Temperature Source Pulse Rate 69 Respiratory Rate Respiratory Effort / Characteristics Respiratory Depth Blood Pressure Blood Pressure Mean Pulse Oximetry Oxygen Delivery Method Oxygen Flow Rate Sepsis Recent Fever Within 48 Hours Sepsis New/Unexplained Change in Mental Status Sepsis Action Taken by Nursing GENERAL: Patient is awake alert in no acute distress patient is resting comfortably and showing no signs of anxiety EYES: The conjunctivae are clear. The pupils are round and reactive. EARS, NOSE, MOUTH AND THROAT: The nose is without any evidence of any deformity. Mucous membranes are moist. Tongue is midline. NECK: The neck is nontender and supple. RESPIRATORY: Normal respiratory effort is noted there is no evidence of wheezing rhonchi or rales CARDIOVASCULAR: Regular rate and rhythm noted there no murmurs rubs or gallops normal S1 normal S2. GASTROINTESTINAL: The abdomen is soft. Abdomen is nontender. BACK: No midline tenderness or or step-off noted range of motion in flexion extension as well as rotation no signs of muscle spasm noted MUSCULOSKELETAL/EXTREMITIES: There is no evidence of gross deformity full range of motion is noted in the hips and shoulders. SKIN: Bilateral lower extremity pitting edema with mild erythema and an area of bruising in the anterior distal mac of the left lower extremity NEUROLOGIC: Patient is awake alert and oriented x3 strength is symmetric Course Reevaluation(s) Reevaluation #1: Patient was started on IV Bumex. Patient is resting in no distress. Patient's not hypoxic Time: 20:20 Consultations Consultation #1: [facility] and bilateral lower extremity edema Time: 20:20 Medical Decision Making Medical Records Attestation: I reviewed the patient's medical records. Home Medications Current Medication List: was personally reviewed by me Laboratory Data Attestation: I reviewed the patient's lab results. Labs interpreted by me are unremarkable except an elevated BNP 05/13/23 18:57 05/13/23 18:57 Lab Results 05/13/23 Range/Units 18:57 WBC 6.00 (4.8-10.8) K/ul RBC 3.48 L (4.20-5.40) M/uL Hgb 11.0 L (12.0-16.0) g/dl Hct 33.3 L (37.0-47.0) % MCV 95.7 (80.0-100.0) fL MCH 31.6 (25.0-34.0) pg MCHC 33.0 (32.0-36.0) g/dL RDW Std Deviation 49.9 H (36.4-46.3) fL RDW Coeff of Malinda 14.1 (11.5-14.5) % Plt Count 178 (130-400) K/uL MPV 11.3 (9.4-12.4) fL Immature Gran % (Auto) 0.2 % Neut % (Auto) 46.0 % Lymph % (Auto) 41.7 % [place] % (Auto) 10.2 % Eos % (Auto) 1.2 % Baso % (Auto) 0.7 % Neut # (Auto) 2.77 (1.40-6.50) K/uL Lymph # (Auto) 2.50 (1.20-3.40) K/uL [place] # (Auto) 0.61 H (0.11-0.59) K/uL Eos # (Auto) 0.07 (0.00-0.50) K/uL Baso # (Auto) 0.04 (0.00-0.20) K/uL Immature Gran # (Auto) 0.01 (0.01-0.20) K/uL PT 12.7 H (9.0-12.0) Seconds INR 1.2 H (0.9-1.1) APTT 32 H (21-31) Seconds PTT Ratio 1.1 Sodium 141 (136-145) mmol/L Potassium 3.6 (3.5-5.1) mmol/L Chloride 102 (98-107) mmol/L Carbon Dioxide 32 (21-32) mmol/L Anion Gap 7 (3-11) BUN 19 (6-23) mg/dl Creatinine 1.16 (0.6-1.2) mg/dl Est Cr Clr Drug Dosing Not Reportable Est GFR ( Amer) 52.6 ml/min Est GFR (Non-Af Amer) 45.4 ml/min BUN/Creatinine Ratio 16.4 (10-20) Glucose 81 (70-99(Fasting)) mg/dl Calcium 8.9 (8.6-10.3) mg/dl Total Bilirubin 0.4 (0.2-1.0) mg/dl AST 26 (13-39) U/L ALT 13 (7-52) U/L Alkaline Phosphatase 91 (34-104) U/L Troponin I High Sens 11.1 (0-14) pg/ml B-Natriuretic Peptide 175 H (0-100) pg/ml Total Protein 7.0 (6.0-8.3) gm/dl Albumin 4.0 (3.4-5.0) gm/dl Globulin 3.0 (2.5-4.0) gm/dl Albumin/Globulin Ratio 1.3 (0.9-2) Imaging Data Attestation: I personally reviewed and interpreted this imaging study as follows: My Impression: Chest x-ray interpreted by me negative for infiltrate normal mediastinum no pneumothorax Radiologist's Impression: Chest X-Ray 05/13/23 18:49 SINGLE VIEW CHEST CLINICAL HISTORY: Atypical chest pain. FINDINGS: A PA chest radiograph is compared to study dated 05/05/2023. An electronic device projects over the lower chest. The cardiomediastinal silhouette is unremarkable noting atherosclerotic calcification of the thoracic aorta. The lungs and pleural spaces are clear. No pneumothorax is seen. The skeletal structures are osteopenic. Chronic deformity and postsurgical changes noted in the left proximal humerus. IMPRESSION: No active disease in the chest. ACT 112: Negative or not required by law. Electronically signed by: Michael Smith M.D. 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 Patient has had dyspnea on exertion. Patient was in our emergency department 2 days ago for fall. Patient is currently on Eliquis for paroxysmal A-fib. Patient was started on IV Bumex. Patient has an elevated BNP but has a normal chest x-ray Patient's troponin is negative Plan is to admit to the hospital for further treatment and diuresis Impression & Plan CHF (congestive heart failure) Discharge Plan Visit Data Chief Complaint: Shortness of Breath/Dyspnea Stated Complaint: SWELLING IN FEET, SOB, FAINTING ED Provider: Kyle Palencia Discharge Problem: CHF (congestive heart failure) Patient Disposition: Admitted As Inpatient Forms Stand Alone Forms: [facility] Prescriptions Prescriptions: No Action nitroglycerin [Nitrostat] 0.4 mg tablet, sublingual 0.4 mg sublingual Q5M PRN (Reason: chest pain) Qty: 20 1RF Rx Instructions: 0.4 mg tablet under tongue every 5 minutes, up to a series of 3 tabs, as needed for chest discomfort. Eliquis 5 mg tablet 5 mg PO BID Qty: 180 3RF pantoprazole 40 mg tablet,delayed release (DR/EC) 40 mg PO DAILYBB Qty: 90 1RF Rx Instructions: 1/2 hour prior to breakfast PO daily; buspirone 5 mg tablet 5 mg PO BID Qty: 90 3RF rosuvastatin [Crestor] 40 mg tablet 40 mg PO HS Qty: 90 3RF amiodarone 200 mg tablet 100 mg PO HS Qty: 45 3RF spironolactone 25 mg tablet 25 mg PO DAILY Qty: 30 2RF Rx Instructions: has not filled yet bumetanide 2 mg tablet 2 mg PO QAM MDD May take additional if needed Rx Instructions: May take additional 2mg is continued swelling in the afternoon. calcium carbonate [Calcium 600] 600 mg calcium (1,500 mg) Tablet 1,200 mg PO QAM cholecalciferol (vitamin D3) [Vitamin D3] 25 mcg (1,000 unit) Capsule 1,000 unit PO QAM docusate sodium 100 mg Capsule 200 mg PO BID acetaminophen 325 mg Tablet 650 mg PO Q4H PRN (Reason: pain) Qty: 60 0RF estradiol 0.075 mg/24 hr patch weekly 0.075 mg transdermal WK Rx Instructions: APPLY 1 PATCH TOPICALLY WEEKLY. CHANGE PATCH ON SUNDAYS cyanocobalamin (vitamin B-12) [Vitamin B-12] 500 mcg Tablet 500 mcg PO QAM ascorbic acid (vitamin C) [Vitamin C] 500 mg Tablet 500 mg PO QAM potassium chloride 20 mEq tablet extended release 40 meq PO QAM Rx Instructions: May take additional 40meq IF additional bumex is taken in the afternoon. mirtazapine 30 mg tablet 30 mg PO HS fluticasone propionate 50 mcg/actuation spray,suspension 2 spray NA DAILY PRN (Reason: Sinus Symptoms) Saline Mist 0.65 % aerosol,spray 1 spray NA TID PRN (Reason: Congestion) lidocaine [Lidoderm] 5 % adhesive patch,medicated 1 patch topical DAILY Qty: 15 0RF Rx Instructions: leave on most painful area for up to 12 hrs memantine 10 mg tablet 10 mg PO BID Referrals Referrals: ProSravan MD [Primary Care Provider] -
[2023-05-13 19:37] LABS: Troponin I High Sensitivity 11.1 pg/ml (0-14)
[2023-05-13 19:40] LABS: INR 1.2 (0.9-1.1); Partial Thromboplastin Ratio 1.1; Partial Thromboplastin Time 32 Seconds (21-31); Prothrombin Time 12.7 Seconds (9.0-12.0)
--- NOTE | 2023-05-13 20:58 | History & Physical Report ---
Date of Service May 13, 2023 Assessment & Plan (1) Acute on chronic heart failure with preserved ejection fraction: (2) Cellulitis of left lower extremity: (3) Bilateral lower extremity edema: (4) Afib: (5) CAD (coronary artery disease): (6) Non-ST elevation IN (NSTEMI): Plan Acute on chronic HFpEF/atrial fibrillation/CAD/history of IN- Continue amiodarone, apixaban, potassium chloride and spironolactone Change bumetanide from 2 mg p.o. every morning to 2 mg IV every morning Follow serial CBC with differential, renal function panel and magnesium level Left lower extremity cellulitis/bilateral lower extremity edema/venous insufficiency- IV Bumex and spironolactone orally as noted above Ceftriaxone 2 g IV daily Patient would likely benefit from Unna boots on a long-term basis, to help Minimize dosing of Bumex she would need and to prevent further cellulitis Consult wound care Mild cognitive impairment/memory loss/depression with anxiety- Continue buspirone, memantine and mirtazapine History of Present Illness Chief Complaint: The patient presents to the emergency department due to concerns regarding 1 week of persistent swelling in both legs, worsening breathing over the past few days, and family had noted left leg to be mildly red and warm. Primary Care Provider: Sravan Figueroa MD The patient is a 77-year-old female with a past medical history including HFpEF, generalized weakness, GERD, depression with anxiety, anemia, long-term use of anticoagulation, GI bleed, atrial fibrillation, CAD, history of NSTEMI and celiac disease. She presents to the emergency department with persistent swelling in bilateral lower extremities, worsening breathing over the past couple days, and left lower extremity with erythema and warmth over the past few days. She had been seen in the heart failure clinic on 05/11/2023, had been prescribed spironolactone at that time, however, family was unable to get presc ription filled until the day of admission, when she had her first dose. Allergies Allergy/AdvReac Type Severity Reaction Status Date / Time Fish Containing Products Allergy Intermediate Vomiting Verified 05/11/23 15:19 gluten Allergy Intermediate Celiac Verified 05/11/23 15:19 disease shellfish derived Allergy Intermediate Vomiting Verified 05/11/23 15:19 latex Allergy Mild Rash Verified 05/11/23 15:19 amoxicillin AdvReac Intermediate Yeast Verified 05/11/23 15:19 infection cefdinir AdvReac Intermediate nausea Verified 05/11/23 15:19 Cephalosporins AdvReac Intermediate Yeast Verified 05/11/23 15:19 infection clavulanic acid AdvReac Intermediate Yeast Verified 05/11/23 15:19 infection prednisone AdvReac Intermediate Anxiety Verified 05/11/23 15:19 Home Medications Medication Instructions Recorded Confirmed Type docusate sodium 100 mg capsule 200 mg PO BID 04/15/18 05/13/23 History calcium carbonate 600 mg calcium 1,200 mg PO QAM 06/08/19 05/13/23 History (1,500 mg) tablet (Calcium) cholecalciferol (vitamin D3) 25 1,000 unit PO QAM 06/08/19 05/13/23 History mcg (1,000 unit) capsule (Vitamin D3) nitroglycerin 0.4 mg sublingual 0.4 mg sublingual Q5M PRN chest 09/25/21 05/13/23 Rx tablet (Nitrostat) pain #20 tabs apixaban 5 mg tablet (Eliquis) 5 mg PO BID #180 tabs 04/29/22 05/13/23 Rx acetaminophen 325 mg tablet 650 mg (2 x 325 mg) PO Q4H PRN 05/30/22 05/13/23 Rx pain #60 tabs estradiol 0.075 mg/24 hr weekly 0.075 mg transdermal WK 07/28/22 05/13/23 History transdermal patch ascorbic acid (vitamin C) 500 mg 500 mg PO QAM 09/03/22 05/13/23 History tablet (Vitamin C) cyanocobalamin (vitamin B-12) 500 500 mcg PO QAM 09/03/22 05/13/23 History mcg tablet (Vitamin B-12) mirtazapine 30 mg tablet 30 mg PO HS 09/27/22 05/13/23 History fluticasone propionate 50 2 spray NA DAILY PRN Sinus Symptoms 10/27/22 05/13/23 History mcg/actuation nasal spray,suspension pantoprazole 40 mg tablet,delayed 40 mg PO DAILYBB #90 tabs 01/06/23 05/13/23 Rx release potassium chloride 20 mEq 40 meq PO QAM 02/03/23 05/13/23 History tablet,extended release buspirone 5 mg tablet 5 mg PO BID #90 tabs 02/06/23 05/13/23 Rx rosuvastatin 40 mg tablet (Crestor) 40 mg PO HS #90 tabs 02/06/23 05/13/23 Rx amiodarone 200 mg tablet 100 mg (1/2 x 200 mg) PO HS #45 03/31/23 05/13/23 Rx tabs sodium chloride 0.65 % nasal spray 1 spray NA TID PRN Congestion 04/03/23 05/13/23 History aerosol (Saline Mist) bumetanide 2 mg tablet 2 mg PO QAM 04/12/23 05/13/23 History lidocaine 5 % topical patch 1 patch topical DAILY #15 ea 05/11/23 05/13/23 Rx (Lidoderm) spironolactone 25 mg tablet 25 mg PO DAILY #30 tabs 05/12/23 05/13/23 Rx memantine 10 mg tablet 10 mg PO BID 05/13/23 05/13/23 History Past Med/Surg History Medical History (Updated 05/14/23 @ 04:28 by Toan Griggs MD) Bilateral lower extremity edema Chest pain Orthostasis Near syncope Chronic heart failure with preserved ejection fraction Tremor Hypokalemia Syncope and collapse Open wound of buttock Constipation Nausea & vomiting Vertigo Anemia RECEIVED 2 UNITS [facility] 04/2021 RECENT ADMISSION GI bleed reason for Endoscopy Atypical chest pain Acute hyponatremia CAD (coronary artery disease) Medically managed by cardiology NSTEMI 07/27/20- cath demonstrated small branch vessel disease involving small OM to, not amenable to intervention. Hypercholesterolemia Non-ST elevation IN (NSTEMI) 07/27/20 Sleep apnea CPAP History of paroxysmal supraventricular tachycardia with atrial tachycardia Diastolic CHF Paroxysmal atrial fibrillation Ocular migraine Obstructive sleep apnea Low back pain with sciatica Dyslipidemia Degenerative disc disease Hypertension CD (celiac disease) "Does not" follow gluten-free diet Diverticulitis 2013 Surgical History S/P transesophageal echocardiogram (JOHANA) Status post placement of implantable loop recorder Implanted 12/2019 - Follows Dr. Yoo > to see Dr. Powers this afternoon for check History of cataract surgery R/L History of incision and drainage Right foot History of foot surgery R/L feet "to straighten toes" History of cardioversion x2, most recent 04/2019 History of arthroscopy of right shoulder RCR History of fracture of left shoulder Plate + screws History of carpal tunnel release R/L History of hysterectomy JOANNA + BSO History of total knee replacement Left x2, right x1 History of cholecystectomy History of esophagogastroduodenoscopy (EGD) History of colonoscopy History of tonsillectomy History of cardiac cath 2015, 07/28/20 ([place]) > no stents Family History Mother Family hx of colon cancer Colorectal cancer Brother Prostate cancer Family history of diabetes mellitus Father Dissecting aortic aneurysm Myocardial infarction Grandmother (Maternal) Stroke Other No family history of adverse response to anesthesia Denies family history of Ovarian cancer Breast cancer Social History Smoking Status: Former smoker Tobacco Type: Cigarettes Age Started Using Tobacco: 19; Age Quit Using Tobacco: 27; packs per day: 0.25; Smoking End Date: 1972; Second Hand Exposure: No; Do You Dip or Chew Tobacco: No; Tobacco Cessation Education Requested by Patient: No Hx Alcohol Use: No Hx Substance Use: No Preferred Language: Serbian Communication Ability: Effective Visual Impairment: No Limitations Hearing Ability: Normal 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 Beliefs That Will Affect Care: None marital status: Current Living Situation: Alone Current Living Situation Comment: home with current occupational status: retired Other Information That Helps Us Care for You: 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; 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[employer]; 3 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 Feels Safe at Home: Yes Safety Concerns: Feels Safe At This Time Childhood Exposure to Second-Hand Smoke: No Dental Care, Regularly: Yes Physical Activity Frequency: 3-4 Times per Week Seatbelt Use: always Sunscreen Use: Yes Assistive Devices: Glasses Review of Systems Review of Systems: The patient denies chest pain, palpitations, cough, sore throat, fevers, chills, sweats, nausea, vomiting, diarrhea , constipation, abdominal pain, pelvic pain, blood in urine or stool, dysuria, urinary frequency or urgency, lightheadedness, dizziness, headache, memory loss, loss of consciousness, rash, abnormal bruising or bleeding, focal weakness, numbness or tingling in arms or legs, generalized arthralgias or myalgias, back or neck pain, or night sweats. The review of systems is otherwise negative other than for that already noted above, and at least 10 systems have been reviewed. Physical Exam Physical Exam: The patient is awake, alert and oriented 3, well developed and well nourished, normocephalic and atraumatic, lying in bed and in no acute distress. HEENT--PERRL, EOMI, mucous membranes and oropharynx normal. Neck--supple. No JVD. No bruits. Thyroid normal, trachea midline, no adenopathy. Heart--normal S1 and S2. No murmurs, rubs or gallops. Lungs--clear bilaterally, no respiratory distress, no accessory muscle use. Abdomen--normal bowel sounds and soft. Nontender. Nondistended Extremities--2+ pretibial pitting edema on the right, 3+ pretibial pitting edema on the left Dermatologic--left lower extremity with mild erythema and warmth Neurologic--cranial nerves II through XII grossly intact. Rheumatologic--normal range of motion. Psychiatric--normal affect. Results & Data Results & Data Vital Signs (Past 12 Hours) Vital Signs Temp Pulse Resp BP Pulse Ox O2 Del Method O2 Flow Rate 05/13/23 20:20 58 L 19 100 Room Air 05/13/23 20:10 62 28 H 99 05/13/23 20:01 74 24 97 05/13/23 20:01 121/50 L 05/13/23 20:00 66 20 94 05/13/23 19:50 66 16 99 05/13/23 19:40 54 L 18 98 05/13/23 19:30 58 L 13 97 05/13/23 19:30 123/51 L 05/13/23 19:26 61 16 97 05/13/23 19:26 138/59 L 05/13/23 19:25 69 05/13/23 19:11 97 Room Air 05/13/23 19:11 97 Room Air 0 05/13/23 18:44 36.6 C 63 17 101/65 97 Room Air Laboratory Results Laboratory Results WBC 6.00 K/ul (4.8-10.8) 05/13/23 18:57 RBC 3.48 M/uL (4.20-5.40) L 05/13/23 18:57 Hgb 11.0 g/dl (12.0-16.0) L 05/13/23 18:57 Hct 33.3 % (37.0-47.0) L 05/13/23 18:57 MCV 95.7 fL (80.0-100.0) 05/13/23 18:57 MCH 31.6 pg (25.0-34.0) 05/13/23 18:57 MCHC 33.0 g/dL (32.0-36.0) 05/13/23 18:57 RDW Std Deviation 49.9 fL (36.4-46.3) H 05/13/23 18:57 RDW Coeff of Malinda 14.1 % (11.5-14.5) 05/13/23 18:57 Plt Count 178 K/uL (130-400) 05/13/23 18:57 MPV 11.3 fL (9.4-12.4) 05/13/23 18:57 Immature Gran % (Auto) 0.2 % 05/13/23 18:57 Neut % (Auto) 46.0 % 05/13/23 18:57 Lymph % (Auto) 41.7 % 05/13/23 18:57 Vance % (Auto) 10.2 % 05/13/23 18:57 Eos % (Auto) 1.2 % 05/13/23 18:57 Baso % (Auto) 0.7 % 05/13/23 18:57 Neut # (Auto) 2.77 K/uL (1.40-6.50) 05/13/23 18:57 Lymph # (Auto) 2.50 K/uL (1.20-3.40) 05/13/23 18:57 Vance # (Auto) 0.61 K/uL (0.11-0.59) H 05/13/23 18:57 Eos # (Auto) 0.07 K/uL (0.00-0.50) 05/13/23 18:57 Baso # (Auto) 0.04 K/uL (0.00-0.20) 05/13/23 18:57 Immature Gran # (Auto) 0.01 K/uL (0.01-0.20) 05/13/23 18:57 PT 12.7 Seconds (9.0-12.0) H 05/13/23 18:57 INR 1.2 (0.9-1.1) H 05/13/23 18:57 APTT 32 Seconds (21-31) H 05/13/23 18:57 PTT Ratio 1.1 05/13/23 18:57 Sodium 141 mmol/L (136-145) 05/13/23 18:57 Potassium 3.6 mmol/L (3.5-5.1) 05/13/23 18:57 Chloride 102 mmol/L (98-107) 05/13/23 18:57 Carbon Dioxide 32 mmol/L (21-32) 05/13/23 18:57 Anion Gap 7 (3-11) 05/13/23 18:57 BUN 19 mg/dl (6-23) 05/13/23 18:57 Creatinine 1.16 mg/dl (0.6-1.2) 05/13/23 18:57 Est Cr Clr Drug Dosing Not Reportable 05/13/23 18:57 Est GFR ( Amer) 52.6 ml/min 05/13/23 18:57 Est GFR (Non-Af Amer) 45.4 ml/min 05/13/23 18:57 BUN/Creatinine Ratio 16.4 (10-20) 05/13/23 18:57 Glucose 81 mg/dl (70-99(Fasting)) 05/13/23 18:57 POC Glucose 99 mg/dl (70-99) 05/13/23 23:40 Calcium 8.9 mg/dl (8.6-10.3) 05/13/23 18:57 Total Bilirubin 0.4 mg/dl (0.2-1.0) 05/13/23 18:57 AST 26 U/L (13-39) 05/13/23 18:57 ALT 13 U/L (7-52) 05/13/23 18:57 Alkaline Phosphatase 91 U/L (34-104) 05/13/23 18:57 Troponin I High Sens 11.1 pg/ml (0-14) 05/13/23 18:57 B-Natriuretic Peptide 175 pg/ml (0-100) H 05/13/23 18:57 Total Protein 7.0 gm/dl (6.0-8.3) 05/13/23 18:57 Albumin 4.0 gm/dl (3.4-5.0) 05/13/23 18:57 Globulin 3.0 gm/dl (2.5-4.0) 05/13/23 18:57 Albumin/Globulin Ratio 1.3 (0.9-2) 05/13/23 18:57 Adenovirus (PCR) Not Detected (NotDetected) 05/13/23 22:52 B. pertussis DNA (PCR) Not Detected (NotDetected) 05/13/23 22:52 B.parapertussis DNA PCR Not Detected (NotDetected) 05/13/23 22:52 C. pneumoniae DNA (PCR) Not Detected (NotDetected) 05/13/23 22:52 Coronavirus OC43 (PCR) Not Detected (NotDetected) 05/13/23 22:52 Coronavirus HKU1 (PCR) Not Detected (NotDetected) 05/13/23 22:52 Coronavirus 229E (PCR) Not Detected (NotDetected) 05/13/23 22:52 SARS-CoV-2 (PCR) Not Detected (NotDetected) 05/13/23 22:52 Coronavirus NL63 (PCR) Not Detected (NotDetected) 05/13/23 22:52 Human Metapneumovir PCR Not Detected (NotDetected) 05/13/23 22:52 Influenza Type A (PCR) Not Detected (NotDetected) 05/13/23 22:52 Influenza Type B (PCR) Not Detected (NotDetected) 05/13/23 22:52 M. pneumoniae (PCR) Not Detected (NotDetected) 05/13/23 22:52 Parainfluenza 1 (PCR) Not Detected (NotDetected) 05/13/23 22:52 Parainfluenza 2 (PCR) Not Detected (NotDetected) 05/13/23 22:52 Parainfluenza 3 (PCR) Not Detected (NotDetected) 05/13/23 22:52 Parainfluenza 4 (PCR) Not Detected (NotDetected) 05/13/23 22:52 RSV (PCR) Not Detected (NotDetected) 05/13/23 22:52 Entero/Rhino (PCR) Not Detected (NotDetected) 05/13/23 22:52 Impressions Chest X-Ray 05/13/23 18:49 SINGLE VIEW CHEST CLINICAL HISTORY: Atypical chest pain. FINDINGS: A PA chest radiograph is compared to study dated 05/05/2023. An electronic device projects over the lower chest. The cardiomediastinal silhouette is unremarkable noting atherosclerotic calcification of the thoracic aorta. The lungs and pleural spaces are clear. No pneumothorax is seen. The skel etal structures are osteopenic. Chronic deformity and postsurgical changes noted in the left proximal humerus. IMPRESSION: No active disease in the chest. ACT 112: Negative or not required by law. Electronically signed by: Michael Smith M.D. 05/13/2023 7:24 PM Venous Doppler Study 05/13/23 20:42 Exam(s): US VENOUS BILATERAL LOWER EXTREMITIES EXAM: US Duplex Bilateral Lower Extremities Veins CLINICAL HISTORY: Reason for exam: LE swelling L > R. TECHNIQUE: Real-time duplex ultrasound scan of the bilateral lower extremity veins integrating B-mode two-dimensional vascular structure, Doppler spectral analysis, color flow Doppler imaging and compression. COMPARISON: No relevant prior studies available. FINDINGS: Right deep veins: Unremarkable. No DVT in the right common femoral, femoral, proximal deep femoral or popliteal veins. The veins demonstrate normal color flow, are normally compressible, with normal phasic flow and/or augmentation response. Right superficial veins: Unremarkable. No thrombus in the visualized right great saphenous vein. Left deep veins: Unremarkable. No DVT in the left common femoral, femoral, proximal deep femoral or popliteal veins. The veins demonstrate normal color flow, are normally compressible, with normal phasic flow and/or augmentation response. Left superficial veins: Unremarkable. No thrombus in the visualized left great saphenous vein. Soft tissues: No acute findings. No popliteal cyst. IMPRESSION: Normal bilateral lower extremity duplex venous ultrasound. Electronically signed by: Ruddy Dong MD 05/14/23 00:20 AM Code Status & VTE Plan Code Status DNR/DNI Patient would except pressors VTE Prophylaxis Plan VTE Prophylaxis will be ordered: Yes PG Care Time/CCT Total # of Minutes Spent Total Time Spent with Patient: Total time spent is greater than 50% in coordination of care (as documented) at patient's floor/unit and/or counseling patient: Coding Level of Care Code 76826 INT INP/OBS CARE 3/75MIN Diagnoses Acute on chronic heart failure with preserved ejection fraction I50.33 Cellulitis of left lower extremity L03.116 Bilateral lower extremity edema R60.0 Afib I48.91 Atrial fibrillation type: unspecified Coronary artery disease involving [place] coronary artery of [place] heart, unspecified whether angina present I25.10 Coronary Disease-Associated Artery/Lesion type: [place] artery [place] vs. transplanted heart: [place] heart Associated angina: unspecified whether angina present Non-ST elevation IN (NSTEMI) I21.4 (4) Afib Atrial fibrillation type: unspecified Qualified Code(s): I48.91 - Unspecified atrial fibrillation (5) CAD (coronary artery disease) Coronary Disease-Associated Artery/Lesion type: [place] artery [place] vs. transplanted heart: [place] heart Associated angina: unspecified whether angina present Qualified Code(s): I25.10 - Atherosclerotic heart disease of [place] coronary artery without angina pectoris
[2023-05-13] MEDS: BUMETANIDE 2 MG in SYRINGE 0 ML IV ONE (21:01)
[2023-05-13] MEDS: SACCHAROMYCES BOULARDII 250 MG CAP PO STA (21:31)
[2023-05-13] MEDS: cefTRIAXone SODIUM 1,000 MG/50 ML BAG IV STA (21:31)
[2023-05-13 23:58] LABS: Adenovirus PCR Not Detected (NotDetected); Bordetella parapertussis PCR Not Detected (NotDetected); Bordetella pertussis PCR Not Detected (NotDetected); Chlamydia pneumoniae PCR Not Detected (NotDetected); Coronavirus 229E PCR Not Detected (NotDetected); Coronavirus CoV-2 (COVID19)PCR Not Detected (NotDetected); Coronavirus HKU1 PCR Not Detected (NotDetected); Coronavirus NL63 PCR Not Detected (NotDetected); Coronavirus OC43PCR Not Detected (NotDetected); Human Metapneumovirus PCR Not Detected (NotDetected); Influenza A PCR Not Detected (NotDetected); Influenza B PCR Not Detected (NotDetected); Mycoplasma pneumoniae PCR Not Detected (NotDetected); Parainfluenza Virus 1 PCR Not Detected (NotDetected); Parainfluenza Virus 2 PCR Not Detected (NotDetected); Parainfluenza Virus 3 PCR Not Detected (NotDetected); Parainfluenza Virus 4 PCR Not Detected (NotDetected); Respiratory Syncytial VirusPCR Not Detected (NotDetected); Rhinovirus/Enterovirus PCR Not Detected (NotDetected)
[2023-05-14] MEDS ORDERED: FLUTICASONE PROPIONATE NA SPR 16 GM BTL PRN (00:19)
[2023-05-14] MEDS ORDERED: ONDANSETRON INJ 2 MG/ML 2 ML VIAL IV PRN (00:19)
[2023-05-14] MEDS ORDERED: SODIUM CHLORIDE 0.65% NA SOLN 45 ML (OCEAN) PRN (00:19)
[2023-05-14] MEDS ORDERED: NITROGLYCERIN SL 0.4 MG/TAB TAB SL PRN (00:19)
--- NOTE | 2023-05-14 00:21 | Ultrasound Report ---
Exam(s): US VENOUS BILATERAL LOWER EXTREMITIES EXAM: US Duplex Bilateral Lower Extremities Veins CLINICAL HISTORY: Reason for exam: LE swelling L > R. TECHNIQUE: Real-time duplex ultrasound scan of the bilateral lower extremity veins integrating B-mode two-dimensional vascular structure, Doppler spectral analysis, color flow Doppler imaging and compression. COMPARISON: No relevant prior studies available. FINDINGS: Right deep veins: Unremarkable. No DVT in the right common femoral, femoral, proximal deep femoral or popliteal veins. The veins demonstrate normal color flow, are normally compressible, with normal phasic flow and/or augmentation response. Right superficial veins: Unremarkable. No thrombus in the visualized right great saphenous vein. Left deep veins: Unremarkable. No DVT in the left common femoral, femoral, proximal deep femoral or popliteal veins. The veins demonstrate normal color flow, are normally compressible, with normal phasic flow and/or augmentation response. Left superficial veins: Unremarkable. No thrombus in the visualized left great saphenous vein. Soft tissues: No acute findings. No popliteal cyst. IMPRESSION: Normal bilateral lower extremity duplex venous ultrasound. Electronically signed by: Ruddy Dong MD 05/14/23 00:20 AM
[2023-05-14] MEDS: DOCUSATE SODIUM 100 MG CAP PO SCH (01:13)
[2023-05-14] MEDS: busPIRone 5 MG TAB PO SCH (01:14)
[2023-05-14] MEDS: ROSUVASTATIN CALCIUM 20 MG TAB PO SCH (01:14)
[2023-05-14] MEDS: MIRTAZAPINE TAB 15 MG TAB PO SCH (01:14)
[2023-05-14] MEDS: MEMANTINE HCL 10 MG TAB PO SCH (01:14)
[2023-05-14] MEDS: AMIODARONE 200 MG TAB PO SCH (01:15)
[2023-05-14] MEDS: APIXABAN 5 MG TABLET PO SCH (01:15)
[2023-05-14] MEDS: ACETAMINOPHEN 325 MG TAB PO PRN (01:20)
[2023-05-14] MEDS: Patient's HEIGHT &/or WEIGHT Needed STA (04:41)
[2023-05-14 06:34] LABS: Basophils # (auto) 0.04 K/uL (0.00-0.20); Basophils % (auto) 0.7 %; Eosinophils # (auto) 0.09 K/uL (0.00-0.50); Eosinophils % (auto) 1.5 %; Hematocrit (blood only) 28.3 % (37.0-47.0); Hemoglobin 9.7 g/dl (12.0-16.0); Immature Granulocytes # (auto) 0.01 K/uL (0.01-0.20); Immature Granulocytes % (auto) 0.2 %; Lymphocytes # (auto) 2.44 K/uL (1.20-3.40); Lymphocytes % (auto) 41.4 %; Mean Corpuscular Hemoglobin 31.6 pg (25.0-34.0); Mean Corpuscular Hgb Conc 34.3 g/dL (32.0-36.0); Mean Corpuscular Volume 92.2 fL (80.0-100.0); Mean Platelet Volume 11.9 fL (9.4-12.4); Monocytes # (auto) 0.63 K/uL (0.11-0.59); Monocytes % (auto) 10.7 %; Neutrophils # (auto) 2.69 K/uL (1.40-6.50); Neutrophils % (auto) 45.5 %; Platelet Count 170 K/uL (130-400); RDW Coefficient of Variation 13.7 % (11.5-14.5); RDW Standard Deviation 46.7 fL (36.4-46.3); Red Blood Count 3.07 M/uL (4.20-5.40)
[2023-05-14] MEDS: PANTOprazole 40 MG TAB PO SCH (06:40)
[2023-05-14 06:44] LABS: Albumin Level 3.4 gm/dl (3.4-5.0); BUN Creatinine Ratio 15.4 (10-20); Calcium 8.5 mg/dl (8.6-10.3); Creatinine Clr Calc Pharmacy 43.4 ml/min; Est GFR (Non-African American) 51.8 ml/min; Potassium 3.3 mmol/L (3.5-5.1)
--- NOTE | 2023-05-14 07:10 | Electrocardiogram Report ---
Test Reason : Blood Pressure : / mmHG Vent. Rate : 058 BPM Atrial Rate : 058 BPM P-R Int : 158 ms QRS Dur : 084 ms QT Int : 438 ms P-R-T Axes : 083 075 078 degrees QTc Int : 429 ms Sinus bradycardia Otherwise normal ECG When compared with ECG of 15-APR-2023 18:15, T wave amplitude has increased in Inferior leads Nonspecific T wave abnormality no longer evident in Anterior leads Confirmed by Gus Powers ([id number] on 05/14/2023 7:10:23 AM Referred By: REFERRED SELF Confirmed By:Leon Powers
[2023-05-14] MEDS: CALCIUM CARBONATE 1250MG TAB PO SCH (09:19)
[2023-05-14] MEDS: POTASSIUM CHLORIDE CRTAB 20 MEQ TABCR PO SCH (09:19)
[2023-05-14] MEDS: CHOLECALCIFEROL 25 MCG (1000 UNITS) TAB PO SCH (09:19)
[2023-05-14] MEDS: CYANOCOBALAMIN (B-12) 500 MCG TABLET PO SCH (09:21)
[2023-05-14] MEDS: SPIRONOLACTONE 25 MG TAB PO SCH (09:21)
[2023-05-14] MEDS: ESTRADIOL TD SCH (09:23)
[2023-05-14] MEDS: ASCORBIC ACID 500 MG TAB PO SCH (09:24)
[2023-05-14] MEDS: BUMETANIDE 2 MG in SYRINGE 0 ML IV SCH (11:00)
--- NOTE | 2023-05-14 14:12 | Hospitalist Progress Note ---
Date of Service May 14, 2023 Assessment & Plan (1) Acute on chronic heart failure with preserved ejection fraction: (2) Cellulitis of left lower extremity: (3) Bilateral lower extremity edema: (4) Afib: (5) CAD (coronary artery disease): (6) Non-ST elevation IA (NSTEMI): Plan Acute on chronic HFpEF/atrial fibrillation/CAD/history of IA- Continue amiodarone, apixaban, potassium chloride and spironolactone Continue Bumex Follow serial CBC with differential, renal function panel and magnesium level Left lower extremity cellulitis/bilateral lower extremity edema/venous insufficiency- Bumex and spironolactone orally as noted above transition to keflex for cellulitis Patient would likely benefit from Unna boots on a long-term basis, to help Minimize dosing of Bumex she would need and to prevent further cellulitis Consult wound care Mild cognitive impairment/memory loss/depression with anxiety- Continue buspirone, memantine and mirtazapine Obtain PT Admission and Anticipated Discharge Date Admission Date: May 13, 2023 Subjective reports feeling better , denies fever, chills Review of Systems Review of Systems: The patient denies chest pain, palpitations, cough, sore throat, fevers, chills, sweats, nausea, vomiting, diarrhea , constipation, abdominal pain, pelvic pain, blood in urine or stool, dysuria, urinary frequency or urgency, lightheadedness, dizziness, headache, memory loss, loss of consciousness, rash, abnormal bruising or bleeding, focal weakness, numbness or tingling in arms or legs, generalized arthralgias or myalgias, back or neck pain, or night sweats. The review of systems is otherwise negative other than for that already noted above, and at least 10 systems have been reviewed. Physical Exam Physical Exam: head Atraumatic normocephalic Neck supple no JVD Lungs clear to auscultation bilaterally Heart S1-S2 regular, no murmurs gallops appreciated Abdomen soft nontender, nondistended, bowel sounds present Extremities lower extremity swelling 2+ , left leg has hematoma Neurologic alert awake, oriented to name and place Results & Data Results & Data Vital Signs (Past 12 Hours) Vital Signs Temp Pulse Resp BP Pulse Ox O2 Del Method 05/14/23 10:26 36.3 C L 51 L 19 123/68 98 Room Air 05/14/23 08:00 Room Air 05/14/23 07:24 36.4 C L 58 L 18 97/52 L 96 Room Air 05/14/23 04:14 36.6 C 64 16 100/52 L 96 Room Air Laboratory Results Abnormal lab results 05/13/23 05/14/23 Range/Units 18:57 05:17 RBC 3.48 L 3.07 L (4.20-5.40) M/uL Hgb 11.0 L 9.7 L (12.0-16.0) g/dl Hct 33.3 L 28.3 L (37.0-47.0) % RDW Std Deviation 49.9 H 46.7 H (36.4-46.3) fL [place] # (Auto) 0.61 H 0.63 H (0.11-0.59) K/uL PT 12.7 H (9.0-12.0) Seconds INR 1.2 H (0.9-1.1) APTT 32 H (21-31) Seconds Potassium 3.3 L (3.5-5.1) mmol/L Carbon Dioxide 34 H (21-32) mmol/L Calcium 8.5 L (8.6-10.3) mg/dl B-Natriuretic Peptide 175 H (0-100) pg/ml Medications Administered Current Inpatient Medications Acetaminophen (Acetaminophen 325 Mg Tab) 650 mg PO Q4H PRN PRN Reason: pain Stop: 06/13/23 00:18 Last Admin: 05/14/23 01:20 Dose: 650 mg Amiodarone HCl (Amiodarone 200 Mg Tab) 100 mg PO HS [facility] Stop: 06/13/23 00:18 Last Admin: 05/14/23 01:15 Dose: 100 mg Apixaban (Apixaban 5 Mg Tablet) 5 mg PO BID [facility] Stop: 06/13/23 00:18 Last Admin: 05/14/23 09:24 Dose: 5 mg Ascorbic Acid (Ascorbic Acid 500 Mg Tab) 500 mg PO QAM [facility] Stop: 06/13/23 08:59 Last Admin: 05/14/23 09:24 Dose: 500 mg Buspirone HCl (Buspirone 5 Mg Tab) 5 mg PO BID [facility] Stop: 06/13/23 00:18 Last Admin: 02/11/24 09:23 Dose: 5 mg Calcium Carbonate (Calcium Carbonate 1250mg Tab) 2,500 mg PO QAM [facility] Stop: 06/13/23 08:59 Last Admin: 05/14/23 09:19 Dose: 2,500 mg Cyanocobalamin (Cyanocobalamin (B-12) 500 Mcg Tablet) 500 mcg PO QAM [facility] Stop: 06/13/23 08:59 Last Admin: 05/14/23 09:21 Dose: 500 mcg Docusate Sodium (Docusate Sodium 100 Mg Cap) 200 mg PO BID [facility] Stop: 06/13/23 00:18 Last Admin: 05/14/23 09:21 Dose: 200 mg Estradiol (Estradiol 0.0375 Mg/24hrs Tdsy) 0.075 mg TD Correa [facility] Stop: 06/13/23 08:59 Last Admin: 05/14/23 09:23 Dose: 0.075 mg Fluticasone Propionate (Fluticasone Propionate Na Spr 16 Gm Btl) 2 sprays NA DAILY PRN PRN Reason: Sinus Symptoms Stop: 06/13/23 00:18 Ceftriaxone Sodium 1,000 mg/ (Dextrose) 50 mls @ 100 mls/hr IV Q24H [facility]; Protocol Stop: 05/21/23 20:59 Bumetanide 2 mg/ Syringe 8 mls @ 4 mls/min IV [facility] Stop: 06/13/23 08:59 Last Admin: 05/14/23 11:00 Dose: 4 mls/min Memantine (Memantine Hcl 10 Mg Tab) 10 mg PO BID [facility] Stop: 06/13/23 00:18 Last Admin: 05/14/23 09:22 Dose: 10 mg Mirtazapine (Mirtazapine Tab 15 Mg Tab) 30 mg PO HS [facility] Stop: 06/13/23 00:18 Last Admin: 05/14/23 01:14 Dose: 30 mg Miscellaneous (Remove Patch) 1 each N/A [place] [facility] Stop: 06/13/23 08:58 Last Admin: 05/14/23 09:46 Dose: 1 each Nitroglycerin (Nitroglycerin Sl 0.4 Mg/Tab Tab) 0.4 mg SL Q5M PRN PRN Reason: chest pain Stop: 06/13/23 00:18 Ondansetron HCl (Ondansetron Inj 2 Mg/Ml 2 Ml Vial) 4 mg IV Q6H PRN PRN Reason: Nausea Stop: 06/13/23 00:18 Pantoprazole Sodium (Pantoprazole 40 Mg Tab) 40 mg PO DAILYBB [facility] Stop: 06/13/23 06:29 Last Admin: 05/14/23 06:40 Dose: 40 mg Potassium Chloride (Potassium Chloride Crtab 20 Meq Tabcr) 40 meq PO QAM [facility] Stop: 06/13/23 08:59 Last Admin: 05/14/23 09:19 Dose: 40 meq Rosuvastatin Calcium (Rosuvastatin Calcium 20 Mg Tab) 40 mg PO HS [facility] Stop: 06/13/23 00:18 Last Admin: 05/14/23 01:14 Dose: 40 mg Sodium Chloride (Sodium Chloride 0.65% Na Soln 45 Ml ([place])) 1 sprays NA TID PRN PRN Reason: Congestion Stop: 06/13/23 00:18 Spironolactone (Spironolactone 25 Mg Tab) 25 mg PO DAILY [facility] Stop: 06/13/23 08:59 Last Admin: 05/14/23 09:21 Dose: 25 mg Vitamin D (Cholecalciferol 25 Mcg (1000 Units) Tab) 25 mcg PO QAM [facility] Stop: 06/13/23 08:59 Last Admin: 05/14/23 09:19 Dose: 25 mcg PG Care Time/CCT Total # of Minutes Spent Total Time Spent with Patient: Total time spent is greater than 50% in coordination of care (as documented) at patient's floor/unit and/or counseling patient: Coding Level of Care Code 78550 SUB INP/OBS CARE 2/35MIN Diagnoses Acute on chronic heart failure with preserved ejection fraction I50.33 Cellulitis of left lower extremity L03.116 Bilateral lower extremity edema R60.0 Afib I48.91 Atrial fibrillation type: unspecified Coronary artery disease involving [place] coronary artery of [place] heart, unspecified whether angina present I25.10 Coronary Disease-Associated Artery/Lesion type: [place] artery [place] vs. transplanted heart: [place] heart Associated angina: unspecified whether angina present Non-ST elevation IA (NSTEMI) I21.4 (4) Afib Atrial fibrillation type: unspecified Qualified Code(s): I48.91 - Unspecified atrial fibrillation (5) CAD (coronary artery disease) Coronary Disease-Associated Artery/Lesion type: [place] artery [place] vs. transplanted heart: [place] heart Associated angina: unspecified whether angina present Qualified Code(s): I25.10 - Atherosclerotic heart disease of [place] coronary artery without angina pectoris
[2023-05-14] MEDS: cephALEXin 500 MG CAP PO SCH (17:00)
[2023-05-14] MEDS ORDERED: cefTRIAXone SODIUM 1,000 MG in DEXTROSE 5 % MINI-B 50 ML IV SCH (21:00)
[2023-05-15 07:52] LABS: Basophils # (auto) 0.05 K/uL (0.00-0.20); Basophils % (auto) 0.8 %; Eosinophils # (auto) 0.11 K/uL (0.00-0.50); Eosinophils % (auto) 1.7 %; Hematocrit (blood only) 32.2 % (37.0-47.0); Hemoglobin 10.8 g/dl (12.0-16.0); Immature Granulocytes # (auto) 0.01 K/uL (0.01-0.20); Immature Granulocytes % (auto) 0.2 %; Lymphocytes # (auto) 1.58 K/uL (1.20-3.40); Mean Corpuscular Hgb Conc 33.5 g/dL (32.0-36.0); Mean Corpuscular Volume 95.3 fL (80.0-100.0); Mean Platelet Volume 11.9 fL (9.4-12.4); Monocytes # (auto) 0.65 K/uL (0.11-0.59); Monocytes % (auto) 10.3 %; Neutrophils # (auto) 3.91 K/uL (1.40-6.50); Platelet Count 181 K/uL (130-400); RDW Coefficient of Variation 14.6 % (11.5-14.5); RDW Standard Deviation 51.1 fL (36.4-46.3); Red Blood Count 3.38 M/uL (4.20-5.40); White Blood Count 6.31 K/ul (4.8-10.8)
[2023-05-15] MEDS: BUMETANIDE 1 MG TAB PO SCH (08:02)
[2023-05-15 08:04] LABS: Albumin Level 3.5 gm/dl (3.4-5.0); Calcium 8.8 mg/dl (8.6-10.3); Creatinine Clr Calc Pharmacy 41.7 ml/min; Est GFR (African American) 57.3 ml/min; Est GFR (Non-African American) 49.5 ml/min; Phosphorus 3.8 mg/dl (2.5-4.9); Potassium 3.8 mmol/L (3.5-5.1)
--- NOTE | 2023-05-15 10:51 | Hospitalist Progress Note ---
Date of Service May 15, 2023 Assessment & Plan (1) Acute on chronic heart failure with preserved ejection fraction: (2) Cellulitis of left lower extremity: (3) Bilateral lower extremity edema: (4) Afib: (5) CAD (coronary artery disease): (6) Non-ST elevation ND (NSTEMI): Plan Acute on chronic HFpEF/atrial fibrillation/CAD/history of ND- Continue amiodarone, apixaban, potassium chloride and spironolactone Continue Bumex, as much as the blood pressure can tolerate Follow serial CBC with differential, renal function panel and magnesium level Left lower extremity cellulitis/bilateral lower extremity edema/venous insufficiency- Bumex and spironolactone orally as noted above transition to keflex for cellulitis Continue compression stockings Consult wound care Mild cognitive impairment/memory loss/depression with anxiety- Continue buspirone, memantine and mirtazapine Obtain PT Hopefully discharge 24 to 48 hours Admission and Anticipated Discharge Date Admission Date: May 13, 2023 Subjective Patient seen and examined today, states her condition is about the same, gets up to walk to the bathroom but does not use it up in a chair. Denies shortness of breath but initially complained of chest pain. Review of Systems Review of Systems: All systems reviewed are negative, apart from the ones contained in the history. Physical Exam Physical Exam: The patient is awake, alert and oriented 3, well developed and well nourished, normocephalic and atraumatic, lying in bed and in no acute distress. HEENT--PERRL, EOMI, mucous membranes and oropharynx mildly dry Neck--supple. No JVD. No bruits. Thyroid normal, trachea midline, no adenopathy. Heart--normal S1 and S2. No murmurs, rubs or gallops. Lungs--clear bilaterally, no respiratory distress, no accessory muscle use. Abdomen--normal bowel sounds and soft. Mild epigastric and left sided abdominal pain Extremities--no cyanosis or clubbing. Bilateral pitting leg edema Dermatologic--lower extremity cellulitis Neurologic--cranial nerves II through XII grossly intact. Rheumatologic--normal range of motion. Psychiatric--normal affect. Results & Data Results & Data Vital Signs (Past 12 Hours) Vital Signs Temp Pulse Pulse Resp BP Pulse Ox O2 Del Method 05/15/23 07:54 98.1 F 63 19 106/49 L 96 Room Air 05/15/23 03:00 97.5 F L 65 16 118/52 L 99 Room Air 05/15/23 00:19 50 L 05/14/23 23:00 97.7 F 58 L 18 95/52 L 98 Room Air PG Care Time/CCT Total # of Minutes Spent Total Time Spent with Patient: Total time spent is greater than 50% in coordination of care (as documented) at patient's floor/unit and/or counseling patient: Coding Level of Care Code 57638 SUB INP/OBS CARE 2/35MIN Diagnoses Acute on chronic heart failure with preserved ejection fraction I50.33 Cellulitis of left lower extremity L03.116 Bilateral lower extremity edema R60.0 Afib I48.91 Atrial fibrillation type: unspecified Coronary artery disease involving [place] coronary artery of [place] heart, unspecified whether angina present I25.10 Coronary Disease-Associated Artery/Lesion type: [place] artery [place] vs. transplanted heart: [place] heart Associated angina: unspecified whether angina present Non-ST elevation ND (NSTEMI) I21.4 Time Spent (min) 35 (4) Afib Atrial fibrillation type: unspecified Qualified Code(s): I48.91 - Unspecified atrial fibrillation (5) CAD (coronary artery disease) Coronary Disease-Associated Artery/Lesion type: [place] artery [place] vs. transplanted heart: [place] heart Associated angina: unspecified whether angina present Qualified Code(s): I25.10 - Atherosclerotic heart disease of [place] coronary artery without angina pectoris
[2023-05-16 07:39] LABS: Basophils # (auto) 0.04 K/uL (0.00-0.20); Basophils % (auto) 0.6 %; Eosinophils % (auto) 1.6 %; Hematocrit (blood only) 30.6 % (37.0-47.0); Hemoglobin 10.5 g/dl (12.0-16.0); Immature Granulocytes # (auto) 0.02 K/uL (0.01-0.20); Immature Granulocytes % (auto) 0.3 %; Lymphocytes # (auto) 1.66 K/uL (1.20-3.40); Lymphocytes % (auto) 26.8 %; Mean Corpuscular Hemoglobin 32.2 pg (25.0-34.0); Mean Corpuscular Hgb Conc 34.3 g/dL (32.0-36.0); Mean Corpuscular Volume 93.9 fL (80.0-100.0); Mean Platelet Volume 11.9 fL (9.4-12.4); Monocytes # (auto) 0.71 K/uL (0.11-0.59); Monocytes % (auto) 11.5 %; Neutrophils # (auto) 3.66 K/uL (1.40-6.50); Neutrophils % (auto) 59.2 %; Platelet Count 163 K/uL (130-400); RDW Coefficient of Variation 14.2 % (11.5-14.5); Red Blood Count 3.26 M/uL (4.20-5.40); White Blood Count 6.19 K/ul (4.8-10.8)
[2023-05-16 08:09] LABS: Albumin Level 3.3 gm/dl (3.4-5.0); BUN Creatinine Ratio 11.7 (10-20); Calcium 8.5 mg/dl (8.6-10.3); Creatinine Clr Calc Pharmacy 47.1 ml/min; Est GFR (African American) 67.8 ml/min; Est GFR (Non-African American) 58.5 ml/min; Magnesium 1.9 mg/dl (1.7-2.4); Phosphorus 3.9 mg/dl (2.5-4.9); Potassium 3.7 mmol/L (3.5-5.1)
--- NOTE | 2023-05-16 12:46 | Hospitalist Progress Note ---
Date of Service May 16, 2023 Assessment & Plan (1) Acute on chronic heart failure with preserved ejection fraction: (2) Cellulitis of left lower extremity: (3) Bilateral lower extremity edema: (4) Afib: (5) CAD (coronary artery disease): (6) Non-ST elevation SD (NSTEMI): Plan Acute on chronic HFpEF/atrial fibrillation/CAD/history of SD- Continue amiodarone, apixaban, potassium chloride and spironolactone Continue Bumex, as much as the blood pressure can tolerate Follow serial CBC with differential, renal function panel and magnesium level Left lower extremity cellulitis/hematoma/bilateral lower extremity edema/venous insufficiency- A small area of hematoma on the left lower extremity sustained when she bumped into an object. Bumex and spironolactone orally as noted above transition to keflex for cellulitis Continue compression stockings Consult wound care Mild cognitive impairment/memory loss/depression with anxiety- Continue buspirone, memantine and mirtazapine Obtain PT Hopefully discharge home with PT 24 to 48 hours Admission and Anticipated Discharge Date Admission Date: May 13, 2023 Subjective Patient seen and examined today, states her condition is about the same, gets up to walk to the bathroom, says she may be ready for discharge tomorrow Review of Systems Review of Systems: All systems reviewed are negative, apart from the ones contained in the history. Physical Exam Physical Exam: The patient is awake, alert and oriented 3, well developed and well nourished, normocephalic and atraumatic, lying in bed and in no acute distress. HEENT--PERRL, EOMI, mucous membranes and oropharynx mildly dry Neck--supple. No JVD. No bruits. Thyroid normal, trachea midline, no adenopathy. Heart--normal S1 and S2. No murmurs, rubs or gallops. Lungs--clear bilaterally, no respiratory distress, no accessory muscle use. Abdomen--normal bowel sounds and soft. Mild epigastric and left sided abdominal pain Extremities--no cyanosis or clubbing. Bilateral pitting leg edema Dermatologic--lower extremity cellulitis Neurologic--cranial nerves II through XII grossly intact. Rheumatologic--normal range of motion. Psychiatric--normal affect. Results & Data Results & Data Vital Signs (Past 12 Hours) Vital Signs Temp Pulse Resp BP Pulse Ox O2 Del Method 05/16/23 10:24 97.3 F L 55 L 16 97/62 L 98 Room Air 05/16/23 07:41 97.2 F L 59 L 16 100/55 L 97 Room Air 05/16/23 07:34 Room Air 05/16/23 03:08 97.5 F L 62 17 127/68 98 Room Air PG Care Time/CCT Total # of Minutes Spent Total Time Spent with Patient: Total time spent is greater than 50% in coordination of care (as documented) at patient's floor/unit and/or counseling patient: Coding Level of Care Code 81914 SUB INP/OBS CARE 2/35MIN Diagnoses Acute on chronic heart failure with preserved ejection fraction I50.33 Cellulitis of left lower extremity L03.116 Bilateral lower extremity edema R60.0 Afib I48.91 Atrial fibrillation type: unspecified Coronary artery disease involving [place] coronary artery of [place] heart, unspecified whether angina present I25.10 Coronary Disease-Associated Artery/Lesion type: [place] artery [place] vs. transplanted heart: [place] heart Associated angina: unspecified whether angina present Non-ST elevation [place] (NSTEMI) I21.4 Time Spent (min) 35 (4) Afib Atrial fibrillation type: unspecified Qualified Code(s): I48.91 - Unspecified atrial fibrillation (5) CAD (coronary artery disease) Coronary Disease-Associated Artery/Lesion type: [place] artery [place] vs. transplanted heart: [place] heart Associated angina: unspecified whether angina present Qualified Code(s): I25.10 - Atherosclerotic heart disease of [place] coronary artery without angina pectoris
[2023-05-17 06:32] LABS: BUN Creatinine Ratio 12.5 (10-20); Calcium 8.5 mg/dl (8.6-10.3); Creatinine Clr Calc Pharmacy 39.7 ml/min; Est GFR (Non-African American) 51.8 ml/min; Potassium 3.8 mmol/L (3.5-5.1)
[2023-05-17 06:38] LABS: Hematocrit (blood only) 31.1 % (37.0-47.0); Hemoglobin 10.4 g/dl (12.0-16.0); Mean Corpuscular Hemoglobin 32.2 pg (25.0-34.0); Mean Corpuscular Hgb Conc 33.4 g/dL (32.0-36.0); Mean Corpuscular Volume 96.3 fL (80.0-100.0); Mean Platelet Volume 11.9 fL (9.4-12.4); Platelet Count 162 K/uL (130-400); RDW Coefficient of Variation 14.1 % (11.5-14.5); RDW Standard Deviation 50.2 fL (36.4-46.3); Red Blood Count 3.23 M/uL (4.20-5.40); White Blood Count 6.77 K/ul (4.8-10.8)
[2023-05-17 12:10] VITALS: O2SAT 100
--- NOTE | 2023-05-17 12:40 | Discharge Summary ---
Date of Service May 17, 2023 Admission HPI Per Admitting Provider The patient is a 77-year-old female with a past medical history including HFpEF, generalized weakness, GERD, depression with anxiety, anemia, long-term use of anticoagulation, GI bleed, atrial fibrillation, CAD, history of NSTEMI and celiac disease. She presents to the emergency department with persistent swelling in bilateral lower extremities, worsening breathing over the past couple days, and left lower extremity with erythema and warmth over the past few days. She had been seen in the heart failure clinic on 05/11/2023, had been prescribed spironolactone at that time, however, family was unable to get pre scription filled until the day of admission, when she had her first dose. Principal Diagnosis Acute on chronic congestive heart failure Discharge Exam The patient is awake, alert and oriented 3, well developed and well nourished, normocephalic and atraumatic, lying in bed and in no acute distress. HEENT--PERRL, EOMI, mucous membranes and oropharynx mildly dry Neck--supple. No JVD. No bruits. Thyroid normal, trachea midline, no adenopathy. Heart--normal S1 and S2. No murmurs, rubs or gallops. Lungs--clear bilaterally, no respiratory distress, no accessory muscle use. Abdomen--normal bowel sounds and soft. Mild epigastric and left sided abdominal pain Extremities--no cyanosis or clubbing. Bilateral pitting leg edema Dermatologic--lower extremity cellulitis Neurologic--cranial nerves II through XII grossly intact. Rheumatologic--normal range of motion. Psychiatric--normal affect. Discharge Data Allergies Allergy/AdvReac Type Severity Reaction Status Date / Time Fish Containing Products Allergy Intermediate Vomiting Verified 05/11/23 15:19 gluten Allergy Intermediate Celiac Verified 05/11/23 15:19 disease shellfish derived Allergy Intermediate Vomiting Verified 05/11/23 15:19 latex Allergy Mild Rash Verified 05/11/23 15:19 amoxicillin AdvReac Intermediate Yeast Verified 05/11/23 15:19 infection cefdinir AdvReac Intermediate nausea Verified 05/11/23 15:19 Cephalosporins AdvReac Intermediate Yeast Verified 05/11/23 15:19 infection clavulanic acid AdvReac Intermediate Yeast Verified 05/11/23 15:19 infection prednisone AdvReac Intermediate Anxiety Verified 05/11/23 15:19 Consultations 05/13/23 19:52 ED Decision to Admit Stat Ordered Studies 05/13/23 20:42 US venous doppler [facility] Stat Hospital Course (1) Acute on chronic heart failure with preserved ejection fraction: (2) Cellulitis of left lower extremity: (3) Bilateral lower extremity edema: (4) Afib: (5) CAD (coronary artery disease): (6) Non-ST elevation [place] (NSTEMI): Plan Acute on chronic HFpEF/atrial fibrillation/CAD/history of ME- Continue amiodarone, apixaban, potassium chloride and spironolactone Continue Bumex, as much as the blood pressure can tolerate Follow serial CBC with differential, renal function panel and magnesium level Left lower extremity cellulitis/hematoma/bilateral lower extremity edema/venous insufficiency- A small area of hematoma on the left lower extremity sustained when she bumped into an object. Bumex and spironolactone orally as noted above transition to keflex for cellulitis Continue compression stockings Consult wound care Mild cognitive impairment/memory loss/depression with anxiety- Continue buspirone, memantine and mirtazapine Obtain PT Hopefully discharge home with PT 24 to 48 hours Total Time Total Time Spent Total Time Spent (In Minutes): 35 Discharge Plan Discharge Items Patient Disposition: Home - Home Health Services Reason For Visit: CHF EX. LLE CELLULITIS Discharge Diagnosis: Acute on chronic congestive heart failure Activity: Resume your previous activity Non-emergency contact: Primary Care Provider and Social Media Strategist Call non-emergency contact if: you have any medication questions Follow-up/Referrals: ProSravan MD [Primary Care Provider] - Shy Vincent PA-C [Physician Computer Equipment Repairer] - 05/22/23 10:00 am Diet: Heart Healthy Addtl Attending Provider Instructions: Please make appointment to follow-up with general heart failure clinic Pending Studies at Discharge: No Stand-Alone Forms: My [employer], Smoking Cessation Medications and DC Order Prescriptions: New cephalexin 500 mg Capsule 500 mg PO QID 5 Days Qty: 20 0RF Continued nitroglycerin [Nitrostat] 0.4 mg tablet, sublingual 0.4 mg sublingual Q5M PRN (Reason: chest pain) Qty: 20 1RF Rx Instructions: 0.4 mg tablet under tongue every 5 minutes, up to a series of 3 tabs, as needed for chest discomfort. Eliquis 5 mg tablet 5 mg PO BID Qty: 180 3RF pantoprazole 40 mg tablet,delayed release (DR/EC) 40 mg PO DAILYBB Qty: 90 1RF Rx Instructions: 1/2 hour prior to breakfast PO daily; buspirone 5 mg tablet 5 mg PO BID Qty: 90 3RF rosuvastatin [Crestor] 40 mg tablet 40 mg PO HS Qty: 90 3RF amiodarone 200 mg tablet 100 mg PO HS Qty: 45 3RF spironolactone 25 mg tablet 25 mg PO DAILY Qty: 30 2RF Rx Instructions: has not filled yet bumetanide 2 mg tablet 2 mg PO QAM MDD May take additional if needed Rx Instructions: May take additional 2mg is continued swelling in the afternoon. calcium carbonate [Calcium 600] 600 mg calcium (1,500 mg) Tablet 1,200 mg PO QAM cholecalciferol (vitamin D3) [Vitamin D3] 25 mcg (1,000 unit) Capsule 1,000 unit PO QAM docusate sodium 100 mg Capsule 200 mg PO BID acetaminophen 325 mg Tablet 650 mg PO Q4H PRN (Reason: pain) Qty: 60 0RF estradiol 0.075 mg/24 hr patch weekly 0.075 mg transdermal WK Rx Instructions: APPLY 1 PATCH TOPICALLY WEEKLY. CHANGE PATCH ON SUNDAYS cyanocobalamin (vitamin B-12) [Vitamin B-12] 500 mcg Tablet 500 mcg PO QAM ascorbic acid (vitamin C) [Vitamin C] 500 mg Tablet 500 mg PO QAM potassium chloride 20 mEq tablet extended release 40 meq PO QAM Rx Instructions: May take additional 40meq IF additional bumex is taken in the afternoon. mirtazapine 30 mg tablet 30 mg PO HS fluticasone propionate 50 mcg/actuation spray,suspension 2 spray NA DAILY PRN (Reason: Sinus Symptoms) Saline Mist 0.65 % aerosol,spray 1 spray NA TID PRN (Reason: Congestion) lidocaine [Lidoderm] 5 % adhesive patch,medicated 1 patch topical DAILY Qty: 15 0RF Rx Instructions: leave on most painful area for up to 12 hrs memantine 10 mg tablet 10 mg PO BID Discharge Orders: Discharge Order (Routine); Ordered 05/17/23 Ordered By: Ariel Henao Admission Data Admit Date/Time: 05/13/23 20:57 Attending Provider: Ariel Henao Admit Provider: Toan Griggs Primary Care Provider: Sravan Figueroa Other Providers: Toan Griggs; [facility],Home Health Coding Level of Care Code 76727 INP/OBS DISCH >30 MIN Diagnoses Acute on chronic heart failure with preserved ejection fraction I50.33 Cellulitis of left lower extremity L03.116 Bilateral lower extremity edema R60.0 Afib I48.91 Atrial fibrillation type: unspecified Coronary artery disease involving [place] coronary artery of [place] heart, unspecified whether angina present I25.10 Coronary Disease-Associated Artery/Lesion type: [place] artery [place] vs. transplanted heart: [place] heart Associated angina: unspecified whether angina present Non-ST elevation [place] (NSTEMI) I21.4 Time Spent (min) 35
[2023-05-17 17:11] VITALS: BP 116/74; PULSE 87; RESP 20; TEMP 98.6
== END 2023-05-17 18:24 | disposition home health service (06) | DRG 292 ==
LOC: ED 18:29 → 2S 20:57 → SUATTDRO 20:57 → 2S 23:39
DX: I87.2 Venous insufficiency (chronic) (peripheral); G31.84 Mild cognitive impairment of uncertain or unknown etiology; L03.116 Cellulitis of left lower limb; F41.9 Anxiety disorder, unspecified; Z91.040 Latex allergy status; Z79.899 Other long term (current) drug therapy; F32.A Depression, unspecified; Z88.8 Allergy status to other drugs, medicaments and biological substances; Z79.01 Long term (current) use of anticoagulants; I25.10 Atherosclerotic heart disease of native coronary artery without angina pectoris; I50.33 Acute on chronic diastolic (congestive) heart failure; I25.2 Old myocardial infarction; R41.3 Other amnesia; I48.0 Paroxysmal atrial fibrillation; Z91.013 Allergy to seafood

== ENCOUNTER 2023-05-20 18:37 | Inpatient (IN) ==
--- NOTE | 2023-05-20 19:02 | Emergency Department Note ---
Impression & Plan Shortness of breath, Cellulitis ED Provider Note NAME: SPARKLE BROWN AGE: 77 SEX: F : 1945 ARRIVES VIA: Walk-In INFORMANT: Patient ED PROVIDER(S): Ruddy Solis DO CHIEF COMPLAINT: Erythema of left mac HPI: Patient is a 77-year-old female with a past medical history of CHF, anemia, cellulitis, chronic venous insufficiency, GI bleed, A-fib on apixaban who presents to the ER with daughter who presents at bedside who gives majority of history. Patient notes that she has some left upper back pain which is worse with twisting, turning, and bending. She has not missed any doses of her apixaban. She also notes that the left leg has become more red and swollen since discharge on Monday. She has not missed any doses of her Keflex. She does have some shortness of breath off and on today. No belly pain, nausea, vomiting, or diarrhea. No dysuria, urgency, or frequency. ADDITIONAL HISTORY OBTAINED: Per HPI Chronic Medical/Social Conditions Affecting Care: Per HPI PAST MEDICAL HISTORY:See Below PAST SURGICAL HISTORY:See Below FAMILY HISTORY:See Below SOCIAL HISTORY:See Below HOME MEDICATIONS:See Below ALLERGIES:See Below VITALS:See Below PHYSICAL EXAMINATION: GENERAL: Sitting up in bed, alert, chronically ill-appearing, cachectic, disheveled EYE EXAM: normal conjunctiva. PERRL and EOM's grossly intact. OROPHARYNX: no exudate, no erythema, lips, buccal mucosa, and tongue normal and mucous membranes are moist NECK: supple, no nuchal rigidity, no adenopathy, non-tender LUNGS: Clear to auscultation. Normal chest wall mechanics HEART: no murmurs, S1 normal and S2 normal ABDOMEN: abdomen soft, non-tender, normo-active bowel sounds, no masses, no rebound or guarding. BACK: Back is symmetrical on inspection and there is no deformity, no midline tenderness, no CVA tenderness. UPPER EXTREMITIES: upper extremities are grossly normal. LOWER EXTREMITIES: Left calf larger than right. Erythema over the left anterior mac. Skin is warm and tender. Small ulcer along the left heel. No surrounding erythema. NEURO EXAM: Normal sensorium, cranial nerves II-XII intact, normal speech, no weakness of arms, no weakness of legs. MEDICAL DECISION MAKING: Patient is a 77-year-old female who presents the ER with daughter present at bedside who gives the majority history. Patient was just recently admitted and discharged for CHF and cellulitis and has been taking her antibiotics and the redness has been worsening since discharge. Labs shows no significant leukocytosis. Mild anemia 11.2. BMP with a creatinine 1.4. LFTs bilirubin was unremarkable. Troponin was negative. Lipase normal. Patient was given IV vancomycin and Rocephin. Updated at bedside. Consults/Care Managements Discussions: Per MDM Triage Nursing notes reviewed. Limited review of prior medical records performed Vital Signs: reviewed and remarkable for HTN Differential diagnosis: Cellulitis, abscess, MRSA infection, DVT, necrotizing fasciitis, dermatitis, drug eruption, allergic reaction, as well as other pathologies. ER treatment provided: See below Diagnostics interpreted by me include EKG and cardiac monitoring as listed below: -Cardiac Monitoring: An order was placed for continuous cardiac monitoring. The monitor shows a rate of 80 with sinus rhythm. -ECG: Sinus rhythm rate 67 Normal axis No PVCs QTc 448 -Laboratory studies:Interpreted by me as stated above in MDM and shown below. Imaging studies: Xrays: As interpreted by me: Portable AP upright 1 view of the chest shows no focal infiltrate Venous duplex of left lower extremity was negative for any DVT Procedures:none Critical Care: None Past Med/Surg History Medical History (Updated 05/20/23 @ 23:43 by Ruddy Solis DO) Bilateral lower extremity edema Chest pain Orthostasis Near syncope Chronic heart failure with preserved ejection fraction Tremor Hypokalemia Syncope and collapse Open wound of buttock Constipation Nausea & vomiting Vertigo Anemia RECEIVED 2 UNITS [facility] 04/2021 RECENT ADMISSION GI bleed reason for Endoscopy Atypical chest pain Acute hyponatremia CAD (coronary artery disease) Medically managed by cardiology NSTEMI 07/27/20- cath demonstrated small branch vessel disease involving small OM to, not amenable to intervention. Hypercholesterolemia Non-ST elevation [place] (NSTEMI) 07/27/20 Sleep apnea CPAP History of paroxysmal supraventricular tachycardia with atrial tachycardia Diastolic CHF Paroxysmal atrial fibrillation Ocular migraine Obstructive sleep apnea Low back pain with sciatica Dyslipidemia Degenerative disc disease Hypertension CD (celiac disease) "Does not" follow gluten-free diet Diverticulitis 2013 Surgical History S/P transesophageal echocardiogram (JOHANA) Status post placement of implantable loop recorder Implanted 12/2019 - Follows Dr. Yoo > to see Dr. Powers this afternoon for check History of cataract surgery R/L History of incision and drainage Right foot History of foot surgery R/L feet "to straighten toes" History of cardioversion x2, most recent 04/2019 History of arthroscopy of right shoulder RCR History of fracture of left shoulder Plate + screws History of carpal tunnel release R/L History of hysterectomy JOANNA + BSO History of total knee replacement Left x2, right x1 History of cholecystectomy History of esophagogastroduodenoscopy (EGD) History of colonoscopy History of tonsillectomy History of cardiac cath 2016, 07/28/20 ([place]) > no stents Family History Mother Family hx of colon cancer Colorectal cancer Brother Prostate cancer Family history of diabetes mellitus Father Dissecting aortic aneurysm Myocardial infarction Grandmother (Maternal) Stroke Other No family history of adverse response to anesthesia Denies family history of Ovarian cancer Breast cancer Social History Smoking Status: Never smoker Tobacco Type: Cigarettes Age Started Using Tobacco: 19; Age Quit Using Tobacco: 27; packs per day: 0.25; Second Hand Exposure: No; Do You Dip or Chew Tobacco: No; Tobacco Cessation Education Requested by Patient: No Hx Alcohol Use: No Hx Substance Use: No Preferred Language: Tuvaluan Communication Ability: Effective Visual Impairment: No Limitations Hearing Ability: Normal Dobby Loom Weaver Required: No Beliefs That Will Affect Care: None marital status: Current Living Situation: Alone Current Living Situation Comment: home with current occupational status: retired Other Information That Helps Us Care for You: 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; 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[employer]; 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 Feels Safe at Home: Yes Safety Concerns: Feels Safe At This Time Childhood Exposure to Second-Hand Smoke: No Dental Care, Regularly: Yes Physical Activity Frequency: 3-4 Times per Week Seatbelt Use: always Sunscreen Use: Yes Assistive Devices: Glasses Allergies Allergies Allergy/AdvReac Type Severity Reaction Status Date / Time Fish Containing Products Allergy Intermediate Vomiting Verified 05/11/23 15:19 gluten Allergy Intermediate Celiac Verified 05/11/23 15:19 disease shellfish derived Allergy Intermediate Vomiting Verified 05/11/23 15:19 latex Allergy Mild Rash Verified 05/11/23 15:19 amoxicillin AdvReac Intermediate Yeast Verified 05/11/23 15:19 infection cefdinir AdvReac Intermediate nausea Verified 05/11/23 15:19 Cephalosporins AdvReac Intermediate Yeast Verified 05/11/23 15:19 infection clavulanic acid AdvReac Intermediate Yeast Verified 05/11/23 15:19 infection prednisone AdvReac Intermediate Anxiety Verified 05/11/23 15:19 Home Meds Home Medications Medication Instructions Recorded Confirmed docusate sodium 100 mg capsule 200 mg PO BID 04/15/18 05/20/23 calcium carbonate 600 mg calcium 1,200 mg PO QAM 06/08/19 05/20/23 (1,500 mg) tablet (Calcium) cholecalciferol (vitamin D3) 25 1,000 unit PO QAM 06/08/19 05/20/23 mcg (1,000 unit) capsule (Vitamin D3) estradiol 0.075 mg/24 hr weekly 0.075 mg transdermal WK 07/28/22 05/20/23 transdermal patch ascorbic acid (vitamin C) 500 mg 500 mg PO QAM 09/03/22 05/20/23 tablet (Vitamin C) cyanocobalamin (vitamin B-12) 500 500 mcg PO QAM 09/03/22 05/20/23 mcg tablet (Vitamin B-12) mirtazapine 30 mg tablet 30 mg PO HS 09/27/22 05/20/23 fluticasone propionate 50 2 spray NA DAILY PRN Sinus Symptoms 10/27/22 05/20/23 mcg/actuation nasal spray,suspension potassium chloride 20 mEq 40 meq PO QAM 02/03/23 05/20/23 tablet,extended release sodium chloride 0.65 % nasal spray 1 spray NA TID PRN Congestion 04/03/23 05/20/23 aerosol (Saline Mist) bumetanide 2 mg tablet 2 mg PO QAM 04/12/23 05/20/23 memantine 10 mg tablet 10 mg PO BID 05/13/23 05/20/23 Previous Rx's Medication Instructions Recorded nitroglycerin 0.4 mg sublingual 0.4 mg sublingual Q5M PRN chest 09/25/21 tablet (Nitrostat) pain #20 tabs apixaban 5 mg tablet (Eliquis) 5 mg PO BID #180 tabs 04/29/22 acetaminophen 325 mg tablet 650 mg (2 x 325 mg) PO Q4H PRN 05/30/22 pain #60 tabs pantoprazole 40 mg tablet,delayed 40 mg PO DAILYBB #90 tabs 01/06/23 release buspirone 5 mg tablet 5 mg PO BID #90 tabs 02/06/23 rosuvastatin 40 mg tablet (Crestor) 40 mg PO HS #90 tabs 02/06/23 amiodarone 200 mg tablet 100 mg (1/2 x 200 mg) PO HS #45 03/31/23 tabs lidocaine 5 % topical patch 1 patch topical DAILY #15 ea 05/11/23 (Lidoderm) spironolactone 25 mg tablet 25 mg PO DAILY #30 tabs 05/12/23 cephalexin 500 mg capsule 500 mg PO QID 5 days #20 caps 05/17/23 Results & Data (ED) Vital Signs Vital Signs - 24 hr 05/20/23 18:43 05/20/23 18:56 05/20/23 18:59 Temperature 36.4 C L Temperature Source Temporal Artery Scan Oral Pulse Rate 78 63 Pulse Rate [Right Radial] 63 Respiratory Rate 18 18 20 Blood Pressure 117/68 Blood Pressure [Right Arm] 118/51 L Blood Pressure Mean 84 Blood Pressure Mean [Right Arm] 73 Pulse Oximetry 97 98 98 Oxygen Delivery Method Room Air Room Air Room Air Sepsis Recent Fever Within 48 Hours No Sepsis New/Unexplained Change in Mental Status N/A Sepsis Action Taken by Nursing No Action Required 05/20/23 19:16 05/20/23 21:00 Temperature Temperature Source Pulse Rate 61 Pulse Rate [Right Radial] 62 Respiratory Rate 18 Blood Pressure Blood Pressure [Right Arm] 99/42 L Blood Pressure Mean Blood Pressure Mean [Right Arm] 61 Pulse Oximetry 97 Oxygen Delivery Method Room Air Sepsis Recent Fever Within 48 Hours Sepsis New/Unexplained Change in Mental Status Sepsis Action Taken by Nursing Laboratory Data 05/20/23 19:22 05/20/23 19:22 Lab Results 05/20/23 Range/Units 19:22 WBC 7.21 (4.8-10.8) K/ul RBC 3.54 L (4.20-5.40) M/uL Hgb 11.2 L (12.0-16.0) g/dl Hct 33.6 L (37.0-47.0) % MCV 94.9 (80.0-100.0) fL MCH 31.6 (25.0-34.0) pg MCHC 33.3 (32.0-36.0) g/dL RDW Std Deviation 47.8 H (36.4-46.3) fL RDW Coeff of Malinda 13.7 (11.5-14.5) % Plt Count 213 (130-400) K/uL MPV 11.6 (9.4-12.4) fL Immature Gran % (Auto) 0.3 % Neut % (Auto) 58.9 % Lymph % (Auto) 27.9 % Collin % (Auto) 11.5 % Eos % (Auto) 1.0 % Baso % (Auto) 0.4 % Neut # (Auto) 4.25 (1.40-6.50) K/uL Lymph # (Auto) 2.01 (1.20-3.40) K/uL Collin # (Auto) 0.83 H (0.11-0.59) K/uL Eos # (Auto) 0.07 (0.00-0.50) K/uL Baso # (Auto) 0.03 (0.00-0.20) K/uL Immature Gran # (Auto) 0.02 (0.01-0.20) K/uL Sodium 136 (136-145) mmol/L Potassium 4.3 (3.5-5.1) mmol/L Chloride 99 (98-107) mmol/L Carbon Dioxide 31 (21-32) mmol/L Anion Gap 6 (3-11) BUN 33 H (6-23) mg/dl Creatinine 1.40 H (0.6-1.2) mg/dl Est Cr Clr Drug Dosing 33.9 ml/min Est GFR ( Amer) 41.9 ml/min Est GFR (Non-Af Amer) 36.2 ml/min BUN/Creatinine Ratio 23.6 H (10-20) Glucose 100 H (70-99(Fasting)) mg/dl Calcium 9.6 (8.6-10.3) mg/dl Total Bilirubin 0.6 (0.2-1.0) mg/dl AST 29 (13-39) U/L ALT 18 (7-52) U/L Alkaline Phosphatase 94 (34-104) U/L Troponin I High Sens 10.3 (0-14) pg/ml B-Natriuretic Peptide 164 H (0-100) pg/ml Total Protein 7.7 (6.0-8.3) gm/dl Albumin 4.2 (3.4-5.0) gm/dl Globulin 3.5 (2.5-4.0) gm/dl Albumin/Globulin Ratio 1.2 (0.9-2) Lipase 8 L (11-82) U/L Administered Medications Apixaban (Apixaban 5 Mg Tablet) 5 mg PO BID MERLIN Stop: 06/19/23 22:53 Last Admin: 05/20/23 23:39 Dose: 5 mg Documented By: RPW Discontinued Medications Vancomycin HCl 1,500 mg/ (Sodium Chloride) 530 mls @ 200 mls/hr IV NOW ONE Stop: 05/20/23 23:03 Last Admin: 05/20/23 22:22 Dose: 200 mls/hr Documented By: FELIPE Ceftriaxone Sodium (Rocephin) 2,000 mg in 50 mls @ 100 mls/hr IV NOW STA Stop: 05/20/23 20:54 Last Infusion: 05/20/23 22:16 Dose: Infused Documented By: Admin: 05/20/23 21:07 Dose: 100 mls/hr Documented By: FELIPE Imaging Data Radiologist's Impression: Chest X-Ray 05/20/23 18:55 XR chest 1V portable HISTORY: 77 years-old Female Chest pain, nonspecific acute chest pain COMPARISON: 05/13/2023 TECHNIQUE: AP view chest FINDINGS: Cardiac silhouette is normal in size. Cardiac loop recorder device. No pneumothorax, pleural effusion or airspace consolidation. Bones appear grossly intact. IMPRESSION: No acute process. ACT 112: Negative or not required by law. The above report was generated using voice recognition software. It may contain grammatical, syntax or spelling errors. Electronically signed by: Antony Miller M.D. 05/20/2023 7:33 PM Venous Doppler Study 05/20/23 18:55 LEFT LOWER EXTREMITY VENOUS DOPPLER HISTORY: Acute pain and swelling of the left lower leg lle swelling COMPARISON STUDY: 05/13/2023 FINDINGS: There is normal compressibility, flow, and augmentation within the left lower extremity deep venous system. Subcutaneous edema limits the study. IMPRESSION: No DVT within the left lower extremity. ACT 112: Negative or not required by law. Electronically signed by: Antony Miller M.D. 05/20/2023 8:11 PM Discharge Plan Visit Data Chief Complaint: Illness Stated Complaint: REDDNESS, SWELLING, PAIN LEFT LEG, SHORT OF BREATH ED Provider: Ruddy Solis Discharge Problem: Shortness of breath, Cellulitis Patient Disposition: Admitted As Inpatient Discharge Instructions Interventions: ED Discharge Assessment Last Done: 05/20/23 22:31 Discharge Problem: Cellulitis Qualifiers: Site of cellulitis: unspecified site Qualified Code(s): L03.90 - Cellulitis, unspecified
--- NOTE | 2023-05-20 19:34 | XRay Report ---
XR chest 1V portable HISTORY: 77 years-old Female Chest pain, nonspecific acute chest pain COMPARISON: 05/13/2023 TECHNIQUE: AP view chest FINDINGS: Cardiac silhouette is normal in size. Cardiac loop recorder device. No pneumothorax, pleural effusion or airspace consolidation. Bones appear grossly intact. IMPRESSION: No acute process. ACT 112: Negative or not required by law. The above report was generated using voice recognition software. It may contain grammatical, syntax o r spelling errors. Electronically signed by: Antony Miller M.D. 05/20/2023 7:33 PM
[2023-05-20 19:47] LABS: Basophils # (auto) 0.03 K/uL (0.00-0.20); Basophils % (auto) 0.4 %; Eosinophils # (auto) 0.07 K/uL (0.00-0.50); Hematocrit (blood only) 33.6 % (37.0-47.0); Hemoglobin 11.2 g/dl (12.0-16.0); Immature Granulocytes # (auto) 0.02 K/uL (0.01-0.20); Immature Granulocytes % (auto) 0.3 %; Lymphocytes # (auto) 2.01 K/uL (1.20-3.40); Lymphocytes % (auto) 27.9 %; Mean Corpuscular Hemoglobin 31.6 pg (25.0-34.0); Mean Corpuscular Hgb Conc 33.3 g/dL (32.0-36.0); Mean Corpuscular Volume 94.9 fL (80.0-100.0); Mean Platelet Volume 11.6 fL (9.4-12.4); Monocytes # (auto) 0.83 K/uL (0.11-0.59); Monocytes % (auto) 11.5 %; Neutrophils # (auto) 4.25 K/uL (1.40-6.50); Neutrophils % (auto) 58.9 %; Platelet Count 213 K/uL (130-400); RDW Coefficient of Variation 13.7 % (11.5-14.5); RDW Standard Deviation 47.8 fL (36.4-46.3); Red Blood Count 3.54 M/uL (4.20-5.40); White Blood Count 7.21 K/ul (4.8-10.8)
[2023-05-20 20:05] LABS: Albumin Level 4.2 gm/dl (3.4-5.0); Bilirubin,Total 0.6 mg/dl (0.2-1.0); Calcium 9.6 mg/dl (8.6-10.3); Potassium 4.3 mmol/L (3.5-5.1)
[2023-05-20 20:11] LABS: Albumin Globulin Ratio 1.2 (0.9-2); BUN Creatinine Ratio 23.6 (10-20); Creatinine Clr Calc Pharmacy 33.9 ml/min; Est GFR (African American) 41.9 ml/min; Est GFR (Non-African American) 36.2 ml/min; Globulin 3.5 gm/dl (2.5-4.0); Total Protein 7.7 gm/dl (6.0-8.3)
--- NOTE | 2023-05-20 20:13 | Ultrasound Report ---
LEFT LOWER EXTREMITY VENOUS DOPPLER HISTORY: Acute pain and swelling of the left lower leg lle swelling COMPARISON STUDY: 05/13/2023 FINDINGS: There is normal compressibility, flow, and augmentation within the left lower extremity cathleen p venous system. Subcutaneous edema limits the study. IMPRESSION: No DVT within the left lower extremity. ACT 112: Negative or not required by law. Electronically signed by: Antony Miller M.D. 05/20/2023 8:11 PM
[2023-05-20 20:21] LABS: Troponin I High Sensitivity 10.3 pg/ml (0-14)
[2023-05-20] MEDS ORDERED: VANCOMYCIN CONSULT ACTIVE PRN ×2 (20:25→22:54)
[2023-05-20] MEDS: cefTRIAXone SODIUM 2,000 MG/50 ML BAG IV STA (21:07)
--- NOTE | 2023-05-20 21:32 | History & Physical Report ---
Date of Service May 20, 2023 Assessment & Plan (1) Cellulitis: Plan: Patient afebrile, non-toxic in appearance. Concern for progressing cellulitis despite outpatient Keflex -Observation to medical -Monitor area of redness -Vancomycin and Ceftriaxone for now (2) Shortness of breath: Plan: Etiology unclear. No hypoxia. Patient does not appear to be volume overloaded -Repeat troponin in AM (3) Afib: Plan: Presently in NSR -Continue Amiodarone -Continue Apixaban (4) CHF (congestive heart failure): Plan: Appears to be largely euvolemic -Continue home Bumex and Spironolactone (5) Depression with anxiety: Plan: Chronic -Continue Buspirone History of Present Illness Chief Complaint: shortness of breath Primary Care Provider: Sravan Figueroa MD 77yo female with history of CAD, PAF, HLP and CHF presenting from home with sh ortness of breath. Patient was recently admitted to [facility] and was discharged home on 05/17/23. She reports that she was doing well on dischharge. Last night she developed some shortness of breath while doing her housework and developed some substernal chest discomfort and pain between her shoulder blades. She is unable to provide additional history - report just that she didn't feel right. She has had no more chest discomfort or shortness of breath. She has cellulitis and is taking Keflex but notes that she has had increased in redness and swelling. Allergies Allergy/AdvReac Type Severity Reaction Status Date / Time Fish Containing Products Allergy Intermediate Vomiting Verified 05/11/23 15:19 gluten Allergy Intermediate Celiac Verified 05/11/23 15:19 disease shellfish derived Allergy Intermediate Vomiting Verified 05/11/23 15:19 latex Allergy Mild Rash Verified 05/11/23 15:19 amoxicillin AdvReac Intermediate Yeast Verified 05/11/23 15:19 infection cefdinir AdvReac Intermediate nausea Verified 05/11/23 15:19 Cephalosporins AdvReac Intermediate Yeast Verified 05/11/23 15:19 infection clavulanic acid AdvReac Intermediate Yeast Verified 05/11/23 15:19 infection prednisone AdvReac Intermediate Anxiety Verified 05/11/23 15:19 Home Medications Medication Instructions Recorded Confirmed Type docusate sodium 100 mg capsule 200 mg PO BID 04/15/18 05/20/23 History calcium carbonate 600 mg calcium 1,200 mg PO QAM 06/08/19 05/20/23 History (1,500 mg) tablet (Calcium) cholecalciferol (vitamin D3) 25 1,000 unit PO QAM 06/08/19 05/20/23 History mcg (1,000 unit) capsule (Vitamin D3) nitroglycerin 0.4 mg sublingual 0.4 mg sublingual Q5M PRN chest 09/25/21 05/20/23 Rx tablet (Nitrostat) pain #20 tabs apixaban 5 mg tablet (Eliquis) 5 mg PO BID #180 tabs 04/29/22 05/20/23 Rx acetaminophen 325 mg tablet 650 mg (2 x 325 mg) PO Q4H PRN 05/30/22 05/20/23 Rx pain #60 tabs estradiol 0.075 mg/24 hr weekly 0.075 mg transdermal WK 07/28/22 05/20/23 History transdermal patch ascorbic acid (vitamin C) 500 mg 500 mg PO QAM 09/03/22 05/20/23 History tablet (Vitamin C) cyanocobalamin (vitamin B-12) 500 500 mcg PO QAM 09/03/22 05/20/23 History mcg tablet (Vitamin B-12) mirtazapine 30 mg tablet 30 mg PO HS 09/27/22 05/20/23 History fluticasone propionate 50 2 spray NA DAILY PRN Sinus Symptoms 10/27/22 05/20/23 History mcg/actuation nasal spray,suspension pantoprazole 40 mg tablet,delayed 40 mg PO DAILYBB #90 tabs 01/06/23 05/20/23 Rx release potassium chloride 20 mEq 40 meq PO QAM 02/03/23 05/20/23 History tablet,extended release buspirone 5 mg tablet 5 mg PO BID #90 tabs 02/06/23 05/20/23 Rx rosuvastatin 40 mg tablet (Crestor) 40 mg PO HS #90 tabs 02/06/23 05/20/23 Rx amiodarone 200 mg tablet 100 mg (1/2 x 200 mg) PO HS #45 03/31/23 05/20/23 Rx tabs sodium chloride 0.65 % nasal spray 1 spray NA TID PRN Congestion 04/03/23 05/20/23 History aerosol (Saline Mist) bumetanide 2 mg tablet 2 mg PO QAM 04/12/23 05/20/23 History lidocaine 5 % topical patch 1 patch topical DAILY #15 ea 05/11/23 05/20/23 Rx (Lidoderm) spironolactone 25 mg tablet 25 mg PO DAILY #30 tabs 05/12/23 05/20/23 Rx memantine 10 mg tablet 10 mg PO BID 05/13/23 05/20/23 History cephalexin 500 mg capsule 500 mg PO QID 5 days #20 caps 05/17/23 05/20/23 Rx Past Med/Surg History Medical History Bilateral lower extremity edema Chest pain Orthostasis Near syncope Chronic heart failure with preserved ejection fraction Tremor Hypokalemia Syncope and collapse Open wound of buttock Constipation Nausea & vomiting Vertigo Anemia RECEIVED 2 UNITS [facility] 04/2021 RECENT ADMISSION GI bleed reason for Endoscopy Atypical chest pain Acute hyponatremia CAD (coronary artery disease) Medically managed by cardiology NSTEMI 07/27/20- cath demonstrated small branch vessel disease involving small OM to, not amenable to intervention. Hypercholesterolemia Non-ST elevation GA (NSTEMI) 07/27/20 Sleep apnea CPAP History of paroxysmal supraventricular tachycardia with atrial tachycardia Diastolic CHF Paroxysmal atrial fibrillation Ocular migraine Obstructive sleep apnea Low back pain with sciatica Dyslipidemia Degenerative disc disease Hypertension CD (celiac disease) "Does not" follow gluten-free diet Diverticulitis 2013 Surgical History S/P transesophageal echocardiogram (JOHANA) Status post placement of implantable loop recorder Implanted 12/2019 - Follows Dr. Yoo > to see Dr. Powers this afternoon for check History of cataract surgery R/L History of incision and drainage Right foot History of foot surgery R/L feet "to straighten toes" History of cardioversion x2, most recent 04/2019 History of arthroscopy of right shoulder RCR History of fracture of left shoulder Plate + screws History of carpal tunnel release R/L History of hysterectomy JOANNA + BSO History of total knee replacement Left x2, right x1 History of cholecystectomy History of esophagogastroduodenoscopy (EGD) History of colonoscopy History of tonsillectomy History of cardiac cath 2015, 07/28/20 ([place]) > no stents Family History Mother Family hx of colon cancer Colorectal cancer Brother Prostate cancer Family history of diabetes mellitus Father Dissecting aortic aneurysm Myocardial infarction Grandmother (Maternal) Stroke Other No family history of adverse response to anesthesia Denies family history of Ovarian cancer Breast cancer Social History Smoking Status: Never smoker Tobacco Type: Cigarettes Age Started Using Tobacco: 19; Age Quit Using Tobacco: 27; packs per day: 0.25; Second Hand Exposure: No; Do You Dip or Chew Tobacco: No; Tobacco Cessation Education Requested by Patient: No Hx Alcohol Use: No Hx Substance Use: No Preferred Language: Khmer Communication Ability: Effective Visual Impairment: No Limitations Hearing Ability: Normal Information Assurance Specialist Required: No Beliefs That Will Affect Care: None marital status: Current Living Situation: Alone Current Living Situation Comment: home with current occupational status: retired Other Information That Helps Us Care for You: 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; 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[employer]; 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 Feels Safe at Home: Yes Safety Concerns: Feels Safe At This Time Childhood Exposure to Second-Hand Smoke: No Dental Care, Regularly: Yes Physical Activity Frequency: 3-4 Times per Week Seatbelt Use: always Sunscreen Use: Yes Assistive Devices: Glasses Review of Systems Review of Systems: All systems reviewed & are unremarkable except as noted in HPI & below Physical Exam Physical Exam: General: patient resting comfortably, NAD, non-toxic in appearance Skin: warm, dry, intact, no rashes or lesions HEENT: NC/AT, PERRL, EOMI, anicteric sclera, conjunctiva without injection, external ear normal to inspection and nontender, nares patent, moist mucus membranes, dentition intact, no oropharyngeal lesions, neck supple, trachea midline, no LAD, no thyromegaly, no JVD Heart: +S1/S2, regular, no m/r/g Lungs: equal air entry bilaterally, no rales/rhonchi/wheezes Abd: +BS, soft, NT/ND, no masses/organomegaly/ascites Ext: warm, 2+ pulses in UE/LE bilaterally, no clubbing/cyanosis or edema Redness of LLE, shiny skin and edema. Tender to palpation. No crepitus, bullae or lymphangitis Neuro: nonfocal, patient AA&O x 4, speech intact, no facial droop, moving all extremities on command with equal strength 5/5 Results & Data Results & Data Vital Signs (Past 12 Hours) Vital Signs Temp Pulse Pulse Resp BP BP Pulse Ox 05/20/23 21:00 62 18 99/42 L 97 05/20/23 19:16 61 05/20/23 18:59 63 20 98 05/20/23 18:56 36.4 C L 63 18 118/51 L 98 05/20/23 18:43 78 18 117/68 97 O2 Del Method 05/20/23 21:00 Room Air 05/20/23 19:16 05/20/23 18:59 Room Air 05/20/23 18:56 Room Air 05/20/23 18:43 Room Air Laboratory Results Laboratory Results WBC 7.21 K/ul (4.8-10.8) 05/20/23 19:22 RBC 3.54 M/uL (4.20-5.40) L 05/20/23 19:22 Hgb 11.2 g/dl (12.0-16.0) L 05/20/23 19:22 Hct 33.6 % (37.0-47.0) L 05/20/23 19:22 MCV 94.9 fL (80.0-100.0) 05/20/23 19:22 MCH 31.6 pg (25.0-34.0) 05/20/23 19:22 MCHC 33.3 g/dL (32.0-36.0) 05/20/23 19:22 RDW Std Deviation 47.8 fL (36.4-46.3) H 05/20/23 19:22 RDW Coeff of Malinda 13.7 % (11.5-14.5) 05/20/23 19:22 Plt Count 213 K/uL (130-400) 05/20/23 19:22 MPV 11.6 fL (9.4-12.4) 05/20/23 19:22 Immature Gran % (Auto) 0.3 % 05/20/23 19: Neut % (Auto) 58.9 % 05/20/23 19:22 Lymph % (Auto) 27.9 % 05/20/23 19:22 [place] % (Auto) 11.5 % 05/20/23 19:22 Eos % (Auto) 1.0 % 05/20/23 19:22 Baso % (Auto) 0.4 % 05/20/23 19:22 Neut # (Auto) 4.25 K/uL (1.40-6.50) 05/20/23 19:22 Lymph # (Auto) 2.01 K/uL (1.20-3.40) 05/20/23 19:22 [place] # (Auto) 0.83 K/uL (0.11-0.59) H 05/20/23 19:22 Eos # (Auto) 0.07 K/uL (0.00-0.50) 05/20/23 19: Baso # (Auto) 0.03 K/uL (0.00-0.20) 05/20/23 19: Immature Gran # (Auto) 0.02 K/uL (0.01-0.20) 05/20/23 19:22 Sodium 136 mmol/L (136-145) 05/20/23 19:22 Potassium 4.3 mmol/L (3.5-5.1) 05/20/23 19:22 Chloride 99 mmol/L (98-107) 05/20/23 19:22 Carbon Dioxide 31 mmol/L (21-32) 05/20/23 19:22 Anion Gap 6 (3-11) 05/20/23 19:22 BUN 33 mg/dl (6-23) H 05/20/23 19:22 Creatinine 1.40 mg/dl (0.6-1.2) H 05/20/23 19:22 Est Cr Clr Drug Dosing 33.9 ml/min 05/20/23 19:22 Est GFR ( Amer) 41.9 ml/min 05/20/23 19:22 Est GFR (Non-Af Amer) 36.2 ml/min 05/20/23 19:22 BUN/Creatinine Ratio 23.6 (10-20) H 05/20/23 19:22 Glucose 100 mg/dl (70-99(Fasting)) H 05/20/23 19:22 Calcium 9.6 mg/dl (8.6-10.3) 05/20/23 19:22 Total Bilirubin 0.6 mg/dl (0.2-1.0) 05/20/23 19:22 AST 29 U/L (13-39) 05/20/23 19:22 ALT 18 U/L (7-52) 05/20/23 19:22 Alkaline Phosphatase 94 U/L (34-104) 05/20/23 19:22 Troponin I High Sens 10.3 pg/ml (0-14) 05/20/23 19:22 B-Natriuretic Peptide 164 pg/ml (0-100) H 05/20/23 19:22 Total Protein 7.7 gm/dl (6.0-8.3) 05/20/23 19:22 Albumin 4.2 gm/dl (3.4-5.0) 05/20/23 19:22 Globulin 3.5 gm/dl (2.5-4.0) 05/20/23 19:22 Albumin/Globulin Ratio 1.2 (0.9-2) 05/20/23 19:22 Lipase 8 U/L (11-82) L 05/20/23 19:22 Impressions Chest X-Ray 05/20/23 18:55 XR chest 1V portable HISTORY: 77 years-old Female Chest pain, nonspecific acute chest pain COMPARISON: 05/13/2023 TECHNIQUE: AP view chest FINDINGS: Cardiac silhouette is normal in size. Cardiac loop recorder device. No pneumothorax, pleural effusion or airspace consolidation. Bones appear grossly intact. IMPRESSION: No acute process. ACT 112: Negative or not required by law. The above report was generated using voice recognition software. It may contain grammatical, syntax or spelling errors. Electronically signed by: Antony Miller M.D. 05/20/2023 7:33 PM Venous Doppler Study 05/20/23 18:55 LEFT LOWER EXTREMITY VENOUS DOPPLER HISTORY: Acute pain and swelling of the left lower leg lle swelling COMPARISON STUDY: 05/13/2023 FINDINGS: There is normal compressibility, flow, and augmentation within the left lower extremity deep venous system. Subcutaneous edema limits the study. IMPRESSION: No DVT within the left lower extremity. ACT 112: Negative or not required by law. Electronically signed by: Antony Miller M.D. 05/20/2023 8:11 PM ECG Additional Comments: EKG with NSR at 67bpm, normal axis, ER=668, QRS=82, NYu=769, no acute ischemic changes PG Care Time/CCT Total # of Minutes Spent Total Time Spent with Patient: Total time spent is greater than 50% in coordination of care (as documented) at patient's floor/unit and/or counseling patient: Coding Level of Care Code 64450 INT INP/OBS CARE 3/75MIN Diagnoses Cellulitis L03.90 Site of cellulitis: unspecified site Shortness of breath R06.02 Afib I48.91 Atrial fibrillation type: unspecified CHF (congestive heart failure) I50.9 Heart failure chronicity: acute on chronic Heart failure type: unspecified Depression with anxiety F41.8 (1) Cellulitis Site of cellulitis: unspecified site Qualified Code(s): L03.90 - Cellulitis, unspecified (3) Afib Atrial fibrillation type: unspecified Qualified Code(s): I48.91 - Unspecified atrial fibrillation (4) CHF (congestive heart failure) Heart failure chronicity: acute on chronic Heart failure type: unspecified Qualified Code(s): I50.9 - Heart failure, unspecified
[2023-05-20] MEDS: VANCOMYCIN HCL 1,500 MG in SODIUM CHLORIDE 0.9% 500 ML IV ONE (22:22)
[2023-05-20] MEDS ORDERED: FLUTICASONE PROPIONATE NA SPR 16 GM BTL PRN (22:54)
[2023-05-20] MEDS: APIXABAN 5 MG TABLET PO SCH (23:39)
[2023-05-21] MEDS: PANTOprazole 40 MG TAB PO SCH (05:41)
[2023-05-21] MEDS: ACETAMINOPHEN 325 MG TAB PO PRN (07:46)
[2023-05-21] MEDS: BUMETANIDE 1 MG TAB PO SCH (08:33)
[2023-05-21] MEDS: LIDOCAINE 5% 1 PATCH TD SCH (08:34)
[2023-05-21] MEDS: MEMANTINE HCL 10 MG TAB PO SCH (08:34)
[2023-05-21] MEDS: SPIRONOLACTONE 25 MG TAB PO SCH (08:34)
[2023-05-21] MEDS: DOCUSATE SODIUM 100 MG CAP PO SCH (08:43)
[2023-05-21] MEDS: POTASSIUM CHLORIDE CRTAB 20 MEQ TABCR PO SCH (08:44)
[2023-05-21] MEDS: busPIRone 5 MG TAB PO SCH (09:05)
--- NOTE | 2023-05-21 09:21 | Hospitalist Progress Note ---
Date of Service May 21, 2023 Assessment & Plan (1) Cellulitis: Plan: Patient afebrile, non-toxic in appearance. Concern for progressing cellulitis despite outpatient Keflex -Monitor area of redness -Continue Vancomycin, discontinue Ceftriaxone - continue to monitor, if patient fails to demonstrate improvement, consider adding back gram negative coverage. (2) Shortness of breath: Plan: Etiology unclear. No hypoxia. Patient does not appear to be volume overloaded, if anything may be volume contracted. -Repeat troponin negative (3) Afib: Plan: Presently in NSR -Continue Amiodarone -Continue Apixaban (4) CHF (congestive heart failure): Plan: Appears to be euvolemic if not somewhat volume contracted - Trial maintenance IV fluids, monitor for any sign of fluid overload -Continue home Bumex and Spironolactone (5) Depression with anxiety: Plan: Chronic -Continue Buspirone Plan Dispo: Med/Surg FEN/GI: LR @100mL/hr, HH diet VTE PPx: Eliquis DNR/DNI Admission and Anticipated Discharge Date Admission Date: May 20, 2023 Supervising Physician Co-Signing Physician Notes I personally examined the patient and verified all cramer points of history and exam, discussed case, and agree with decision making with Dr Gonzalez Feeling about the same. Shortness of breath feeling a bit better. espouses vociferously on the benefits of doterra oils. Vitals noted, in general she is awake and alert pleasant no distress. Lungs are clear to auscultation bilaterally no rales rhonchi or wheeze with good effort. Left lower extremity has dull erythema that has receded from the line drawn, it is quite tender there is no crepitus no exudate no fluctuance. She does have bilateral lower extremity venous stasis type changes as well. Lower extremity cellulitisfailing Keflexfar more likely to have a resistant gram-positive organism than a gram-negative organismto try to streamline treatment to make it easier for homestop ceftriaxone for now follow how she does on vancomycin alone. If this continues to affect improvement, then likely home on something with good coverage for resistant gram-positive organisms (such as doxycycline), and if she fails to improve, then reinstitute gram-negative treatmentbut without anything consistent with longstanding arterial insufficiency/without longstanding uncontrolled type 2 diabetesseems fairly unlikely. Dyspnea on exertionetiology not quite clear. Considered CHF given her background historybut definitely appears to be on the dry side, considered unstable angina as dyspnea being an anginal equivalent, but does not really seem to fit the clinical picture. Given recent hospitalization, PE consideredbut no hypoxia/no tachycardia and no DVT, furthermore she is on apixaban.. With AKII wonder if it is just a dyspnea on exertion from being dehydrated/fatigued/deconditioned. Giving gentle IV fluids for AKIand I wonder if that is why she is starting to feel better. Obviously follow closely, serial histories/serial examsworkup further if the situation does not continue to improve. Subjective 77yo female with history of CAD, PAF, HLP and CHF presenting from home with shortness of breath. Patient evaluated at bedside this morning, notes that when sitting/lying in bed, she does not feel short of breath, states that she only experiences dyspnea on exertion. Also describes substernal pain with exertion. Denies orthopnea, fever, chills. Also notes pain in left lower extremity, states that she has been adherent with abx. Despite this, no change in lesion. Review of Systems Review of Systems: as per HPI Physical Exam Constitutional: frail appearing, no acute distress. Neck: trachea midline, no thyromegaly Respiratory: normal respiratory effort, lungs clear to auscultation Cardiovascular: RRR, no murmur, no edema Gastrointestinal (Abdomen): non-distended, non-tender Skin: Bilateral LE edema, LLE with warm, erythematous lesion, TTP and with ill-defined borders on the anterior aspect of LLE, borders within existing markings Psychiatric: dysphoric affect, soft spoken. Results & Data Results & Data Vital Signs (Past 12 Hours) Vital Signs Temp Pulse Pulse Pulse Resp BP BP 05/21/23 07:27 36.3 C L 57 L 16 110/41 L 05/20/23 23:44 05/20/23 23:06 36.4 C L 63 16 123/49 L 05/20/23 22:54 36.4 C L 63 16 123/49 L 05/20/23 22:31 62 18 102/41 L 05/20/23 22:00 57 L 18 93/41 L Pulse Ox O2 Del Method 05/21/23 07:27 96 Room Air 05/20/23 23:44 Room Air 05/20/23 23:06 97 Room Air 05/20/23 22:54 97 Room Air 05/20/23 22:31 98 Room Air 05/20/23 22:00 94 Resident Activity Tracking Resident Involvement: Resident Care Provided Care Provided: Adult Hospital Medicine (1) Cellulitis Site of cellulitis: unspecified site Qualified Code(s): L03.90 - Cellulitis, unspecified (3) Afib Atrial fibrillation type: unspecified Qualified Code(s): I48.91 - Unspecified atrial fibrillation (4) CHF (congestive heart failure) Heart failure chronicity: acute on chronic Heart failure type: unspecified Qualified Code(s): I50.9 - Heart failure, unspecified
[2023-05-21] MEDS: VANCOMYCIN HCL 1,000 MG in SODIUM CHLORIDE 0.9% 250 ML IV SCH (11:19)
--- NOTE | 2023-05-21 11:48 | Pharmacy Report ---
Pharmacy PK ABX Note - Date of Service May 21, 2023 - Assessment and Plan Assessment 77 year old F receiving ceftriaxone/vancomycin for treatment of cellulitis. Normal WBC. Day # []/[] of antimicrobial therapy. Plan Vancomycin * Loading dose: 2222 mg IV x 1 * Maintenance dose: 1000 mg IV every 24 hours * Regimen is predicted to achieve target AUC/SRIKANTH of 400-600 mg/L.hr with next 3 doses * Random level to be ordered if continued greater than 48 hours Pharmacy will continue to follow and will adjust dose/frequency as necessary. Thank you. Pharmacy has transitioned to AUC monitoring for vancomycin. AUC/SRIKANTH is the preferred PK/PD target and is associated with decreased risk of nephrotoxicity compared to traditional trough targets.
[2023-05-21] MEDS: LACTATED RINGER'S 1,000 ML IV SCH (12:40)
--- NOTE | 2023-05-21 15:51 | Billing Data ---
Date of Service May 21, 2023 Coding Level of Care Code 94738 SUB INP/OBS CARE MIN
[2023-05-21] MEDS ORDERED: cefTRIAXone SODIUM 1,000 MG in DEXTROSE 5 % MINI-B 50 ML IV SCH (18:00)
[2023-05-21] MEDS: AMIODARONE 200 MG TAB PO SCH (20:41)
[2023-05-21] MEDS: ROSUVASTATIN CALCIUM 20 MG TAB PO SCH (20:43)
[2023-05-21] MEDS: MIRTAZAPINE TAB 15 MG TAB PO SCH (20:44)
--- NOTE | 2023-05-22 06:23 | Electrocardiogram Report ---
Test Reason : Blood Pressure : / mmHG Vent. Rate : 067 BPM Atrial Rate : 067 BPM P-R Int : 162 ms QRS Dur : 082 ms QT Int : 424 ms P-R-T Axes : 082 061 069 degrees QTc Int : 448 ms Normal sinus rhythm Normal ECG When compared with ECG of 13-MAY-2023 18:53, No significant change was found Confirmed by Griffin Dao ([id number]) on 05/22/2023 6:23:10 AM Referred By: REFERRED SELF Confirmed By:Griffin Dao
[2023-05-22 08:12] LABS: Hematocrit (blood only) 28.8 % (37.0-47.0); Hemoglobin 9.9 g/dl (12.0-16.0); Mean Corpuscular Hemoglobin 32.7 pg (25.0-34.0); Mean Corpuscular Hgb Conc 34.4 g/dL (32.0-36.0); Mean Platelet Volume 12.1 fL (9.4-12.4); Platelet Count 188 K/uL (130-400); RDW Coefficient of Variation 13.9 % (11.5-14.5); RDW Standard Deviation 48.5 fL (36.4-46.3); Red Blood Count 3.03 M/uL (4.20-5.40); White Blood Count 4.69 K/ul (4.8-10.8)
[2023-05-22 08:35] LABS: BUN Creatinine Ratio 15.5 (10-20); Calcium 8.4 mg/dl (8.6-10.3); Creatinine Clr Calc Pharmacy 47.2 ml/min; Est GFR (African American) 65.3 ml/min; Est GFR (Non-African American) 56.3 ml/min
--- NOTE | 2023-05-22 09:13 | Pharmacy Report ---
Pharmacy PK ABX Note - Date of Service May 22, 2023 - Assessment and Plan Assessment 05/22: Ceftriaxone was discontinued yesterday prior to dose, continuing vancomycin for now. SCr has improved, appears to be ~baseline. Will empirically adjust dose. 05/21: 77 year old F receiving ceftriaxone/vancomycin for treatment of cellulitis progressing despite outpatient cephalexin. Normal WBC. Plan Vancomycin * Loading dose: 2222 mg IV x 1 * Maintenance dose: 1000 mg IV every 18 hours * Regimen is predicted to achieve target AUC/SRIKANTH of 400-600 mg/L.hr with next 4 doses * Random level to ordered for 05/24 @1000 Pharmacy will continue to follow and will adjust dose/frequency as necessary. Thank you. Pharmacy has transitioned to AUC monitoring for vancomycin. AUC/SRIKANTH is the preferred PK/PD target and is associated with decreased risk of nephrotoxicity compared to traditional trough targets.
[2023-05-22] MEDS: VANCOMYCIN HCL 1,000 MG in SODIUM CHLORIDE 0.9% 250 ML IV SCH (11:09)
--- NOTE | 2023-05-22 13:43 | Hospitalist Progress Note ---
Date of Service May 22, 2023 Assessment & Plan (1) Cellulitis: Plan: - Patient afebrile, non-toxic in appearance. Concern for progressing cellulitis despite outpatient Keflex -Continue Vancomycin; Ceftriaxone dc yesterday - If improvement noted with this abx regimen, consider discharge with PO abx to cover for MRSA (2) Shortness of breath: Plan: - Etiology unclear. No hypoxia. Patient does not appear to be volume overloaded, if anything may be volume contracted. - Repeat troponin negative - Continue to monitor (3) Afib: Plan: -Presently in NSR -Continue Amiodarone -Continue Apixaban (4) CHF (congestive heart failure): Plan: - Appears to be euvolemic if not somewhat volume contracted - Trial maintenance IV fluids, monitor for any sign of fluid overload -Continue home Bumex and Spironolactone (5) Depression with anxiety: Plan: - Chronic -Continue Buspirone Plan Dispo: Med/Surg FEN/GI: LR @100mL/hr, HH diet VTE PPx: Eliquis DNR/DNI Admission and Anticipated Discharge Date Admission Date: May 20, 2023 Supervising Physician Co-Signing Physician Notes I personally examined the patient and verified cramer points of history and exam, discussed case, and agree with decision making and plan documented by Dr. Mckeon. Distal left lower extremity continues to improve on antibiotic therapy. Will transition patient over to p.o. antibiotics. Patient refused [facility] evaluation today. Unfortunately her is currently hospitalized here at [facility], hopefully she can go visit him. Recommend PT evaluation to assist with discharge planning, last admission patient discharged on 05/17/2023 with home PT, she plans to go home. Patient is not currently on IVF. Francine Xie DO, MS Subjective 77yo female with history of CAD, PAF, HLP and CHF presenting from home with shortness of breath. Patient evaluated at bedside and found to be awake, alert oriented in all spheres, and in no acute distress. She note some mild discomfort in her left leg but no other discomfort. Denies chest pain, SOB, or any other symptom. Review of Systems Review of Systems: as per HPI Physical Exam Physical Exam: GENERAL: AAOX3, afebrile, no acute distress HEAD: AT, NC EYES: EOM intct CARDIO: RRR RESPIRATORY: CTA, normal respiratory effort GI: non-distended, non tender EXTREMITIES: left LE with erythema and warmth and tenderness that is below pen siri, no erythema or tenderness in right LE Results & Data Results & Data Vital Signs (Past 12 Hours) Vital Signs Temp Pulse Resp BP Pulse Ox O2 Del Method 05/22/23 07:47 36.3 C L 60 18 99/48 L 97 Room Air 05/22/23 07:30 Room Air Resident Supervision Co-Signing Physician Notes I independently examined and reviewed the patient's case in concert with Dr. Mckeon. Persistent cellulitis with failure of outpatient Keflex. Initially on vancomycin plus Rocephin and Rocephin now discontinued. Continuing to show cellulitic improvement. When discussing oral antibiotics, patient does note difficulty with swallowing and has to take medications in applesauce. Referral for [facility] made, appreciate recommendations. Will need oral MRSA coverage but with dysphagia, would try to avoid doxycycline given esophagitis side effect. (1) Cellulitis Site of cellulitis: unspecified site Qualified Code(s): L03.90 - Cellulitis, unspecified (3) Afib Atrial fibrillation type: unspecified Qualified Code(s): I48.91 - Unspecified atrial fibrillation (4) CHF (congestive heart failure) Heart failure chronicity: acute on chronic Heart failure type: unspecified Qualified Code(s): I50.9 - Heart failure, unspecified
[2023-05-23 10:03] LABS: Basophils # (auto) 0.07 K/uL (0.00-0.20); Basophils % (auto) 1.4 %; Eosinophils # (auto) 0.09 K/uL (0.00-0.50); Eosinophils % (auto) 1.8 %; Hematocrit (blood only) 32.2 % (37.0-47.0); Hemoglobin 10.8 g/dl (12.0-16.0); Immature Granulocytes # (auto) 0.01 K/uL (0.01-0.20); Immature Granulocytes % (auto) 0.2 %; Lymphocytes # (auto) 2.34 K/uL (1.20-3.40); Lymphocytes % (auto) 46.2 %; Mean Corpuscular Hemoglobin 32.3 pg (25.0-34.0); Mean Corpuscular Hgb Conc 33.5 g/dL (32.0-36.0); Mean Corpuscular Volume 96.4 fL (80.0-100.0); Mean Platelet Volume 11.7 fL (9.4-12.4); Monocytes # (auto) 0.45 K/uL (0.11-0.59); Monocytes % (auto) 8.9 %; Neutrophils # (auto) 2.11 K/uL (1.40-6.50); Neutrophils % (auto) 41.5 %; Platelet Count 216 K/uL (130-400); RDW Coefficient of Variation 14.1 % (11.5-14.5); RDW Standard Deviation 49.5 fL (36.4-46.3); Red Blood Count 3.34 M/uL (4.20-5.40); White Blood Count 5.07 K/ul (4.8-10.8)
[2023-05-23 10:21] LABS: Calcium 8.9 mg/dl (8.6-10.3); Creatinine Clr Calc Pharmacy 50.3 ml/min; Est GFR (African American) 70.5 ml/min; Est GFR (Non-African American) 60.9 ml/min; Potassium 3.5 mmol/L (3.5-5.1)
--- NOTE | 2023-05-23 10:56 | Hospitalist Progress Note ---
Date of Service May 23, 2023 Assessment & Plan (1) Cellulitis: Plan: - Patient afebrile, non-toxic in appearance. Concern for progressing cellulitis despite outpatient Keflex -Continue Vancomycin - If improvement noted with this abx regimen, consider discharge with PO Bactrim to cover for MRSA - Will consult PT/OT for evaluation and assess if patient is fit to be discharged home (lives alone) (2) Shortness of breath: Plan: - Etiology unclear. No hypoxia. Patient does not appear to be volume overloaded, if anything may be volume contracted. - Repeat troponin negative - Continue to monitor (3) Afib: Plan: -Presently in NSR -Continue Amiodarone -Continue Apixaban (4) CHF (congestive heart failure): Plan: - Appears to be euvolemic if not somewhat volume contracted - Trial maintenance IV fluids, monitor for any sign of fluid overload -Continue home Bumex and Spironolactone (5) Depression with anxiety: Plan: - Chronic -Continue Buspirone Plan Dispo: Eval by PT/OT; if patient fit to be discharged home, discharge then with oral antibiotic course GI ppx: Protonix 40mg VTE PPx: Eliquis DNR/DNI Admission and Anticipated Discharge Date Admission Date: May 20, 2023 Supervising Physician Co-Signing Physician Notes I personally examined the patient and verified cramer points of history and exam, discussed case, and agree with decision making and plan documented by Dr. Mckeon. Much clinical improvement of LLE cellulitis on IV vancomycin. Patient euvolemic. Patient present ASTRID that has been treated and now resolved. Will transition to PO antibiotics tomorrow. Francine Xie DO, MS Subjective Patient evaluated at bedside and found to be awake, alert oriented in all spheres, and in no acute distress. She note some mild discomfort in her left leg that is improved from yesterday but no other discomfort. She has been able to walk to the bathroom by herself using a walker. Denies chest pain, SOB, or any other symptom. Review of Systems Review of Systems: as per HPI Physical Exam Physical Exam: GENERAL: AAOX3, afebrile, no acute distress HEAD: AT, NC EYES: EOM intct CARDIO: RRR RESPIRATORY: CTA, normal respiratory effort GI: non-distended, non tender EXTREMITIES: left LE with erythema and warmth and tenderness that is below pen siri, no erythema or tenderness in right LE Results & Data Results & Data Vital Signs (Past 12 Hours) Vital Signs Temp Pulse Resp BP Pulse Ox O2 Del Method 05/23/23 07:49 36.4 C L 57 L 16 116/36 L 98 Room Air 05/22/23 23:22 36.7 C 73 18 128/58 L 97 Room Air Resident Supervision Co-Signing Physician Notes I independently examined and reviewed patient case in concert with Dr. Mckeon. Significant improvement of left lower extremity cellulitis. PT and OT consults ordered and pending. Difficult case considering patient will be sent home by herself while her is currently admitted to the hospital. If she feels she is safe to go home and PT and OT deem her a good candidate to return home as well, discharged on oral antibiotics. Concerned about risk with esophagitis with doxycycline given difficulty with swallowing so would recommend utilization of Bactrim for MRSA coverage. Do not feel any strep coverage is needed as she failed Keflex outpatient. (1) Cellulitis Site of cellulitis: unspecified site Qualified Code(s): L03.90 - Cellulitis, unspecified (3) Afib Atrial fibrillation type: unspecified Qualified Code(s): I48.91 - Unspecified atrial fibrillation (4) CHF (congestive heart failure) Heart failure chronicity: acute on chronic Heart failure type: unspecified Qualified Code(s): I50.9 - Heart failure, unspecified
--- NOTE | 2023-05-23 14:38 | Pharmacy Report ---
Pharmacy PK ABX Note - Date of Service May 23, 2023 - Assessment and Plan Assessment 05/23: Vancomycin day 5: Random level ordered this afternoon due to [facility] predicting AUC/SRIKANTH above goal range, level confirming Ximena is predicted to be within goal range with 88% accuracy. Continue current regimen, confirm with level tomorrow. 05/22: Ceftriaxone was discontinued yesterday prior to dose, continuing vancomycin for now. SCr has improved, appears to be ~baseline. Will empirically adjust dose. 05/21: 77 year old F receiving ceftriaxone/vancomycin for treatment of cellulitis progressing despite outpatient cephalexin. Normal WBC. Plan Vancomycin * Maintenance dose: 1000 mg IV every 18 hours * Regimen is predicted to achieve target AUC/SRIKANTH of 400-600 mg/L.hr with next 4 doses * Random level to ordered for 05/24 @1000 Pharmacy will continue to follow and will adjust dose/frequency as necessary. Thank you. Pharmacy has transitioned to AUC monitoring for vancomycin. AUC/SRIKANTH is the preferred PK/PD target and is associated with decreased risk of nephrotoxicity compared to traditional trough targets.
[2023-05-24] MEDS: SULFAMETHOXAZOLE/TRIMETHOPRIM DS 800/160MG TAB PO SCH (07:49)
[2023-05-24 08:13] LABS: Creatinine Clr Calc Pharmacy 49.3 ml/min; Est GFR (African American) 68.7 ml/min; Est GFR (Non-African American) 59.3 ml/min
[2023-05-24] MEDS: ONDANSETRON INJ 2 MG/ML 2 ML VIAL IV PRN (09:32)
--- NOTE | 2023-05-24 11:27 | Discharge Summary ---
Date of Service May 24, 2023 Admission HPI Per Admitting Provider 77yo female with history of CAD, PAF, HLP and CHF presenting from home with shortness of breath. Patient was recently admitted to [facility] and was discharged home on 05/17/23. She reports that she was doing well on dischharge. Last night she developed some shortness of breath while doing her housework and developed some substernal chest discomfort and pain between her shoulder blades. She is unable to provide additional history - report just that she didn't feel right. She has had no more chest discomfort or shortness of breath. She has cellulitis and is taking Keflex but notes that she has had increased in redness and swelling. Admission Exam Per Admitting Provider General: patient resting comfortably, NAD, non-toxic in appearance Skin: warm, dry, intact, no rashes or lesions HEENT: NC/AT, PERRL, EOMI, anicteric sclera, conjunctiva without injection, external ear normal to inspection and nontender, nares patent, moist mucus membranes, dentition intact, no oropharyngeal lesions, neck supple, trachea midline, no LAD, no thyromegaly, no JVD Heart: +S1/S2, regular, no m/r/g Lungs: equal air entry bilaterally, no rales/rhonchi/wheezes Abd: +BS, soft, NT/ND, no masses/organomegaly/ascites Ext: warm, 2+ pulses in UE/LE bilaterally, no clubbing/cyanosis or edema Redness of LLE, shiny skin and edema. Tender to palpation. No crepitus, bullae or lymphangitis Neuro: nonfocal, patient AA&O x 4, speech intact, no facial droop, moving all extremities on command with equal strength 5/5 Principal Diagnosis Cellulitis Discharge Exam GENERAL: AAOX3, afebrile, no acute distress HEAD: AT, NC EYES: EOM intct CARDIO: RRR RESPIRATORY: CTA, normal respiratory effort GI: non-distended, non tender EXTREMITIES: left LE with erythema and warmth and tenderness that is much improved compared to past examinations, no erythema or tenderness in right LE Discharge Data Allergies Allergy/AdvReac Type Severity Reaction Status Date / Time Fish Containing Products Allergy Intermediate Vomiting Verified 05/11/23 15:19 gluten Allergy Intermediate Celiac Verified 05/11/23 15:19 disease shellfish derived Allergy Intermediate Vomiting Verified 05/11/23 15:19 latex Allergy Mild Rash Verified 05/11/23 15:19 amoxicillin AdvReac Intermediate Yeast Verified 05/11/23 15:19 infection cefdinir AdvReac Intermediate nausea Verified 05/11/23 15:19 Cephalosporins AdvReac Intermediate Yeast Verified 05/11/23 15:19 infection clavulanic acid AdvReac Intermediate Yeast Verified 05/11/23 15:19 infection prednisone AdvReac Intermediate Anxiety Verified 05/11/23 15:19 Consultations 05/20/23 20:40 ED Decision to Admit Stat Ordered Studies 05/20/23 18:55 US venous doppler LE LT Stat Hospital Course (1) Cellulitis: (2) Shortness of breath: (3) Afib: (4) CHF (congestive heart failure): (5) Depression with anxiety: Plan Ms. Maxwell is a 77-year-old female with history of A-fib on apixaban and amioda barbie, CHF, depression with anxiety, and recent admission to [facility] for management of cellulitis that was admitted to our service for management of shortness of breath, as well as cellulitis that was not well-controlled with Keflex. With regards to her shortness of breath it was unclear as to what may have caused it as patient was not hypoxic and did not appear to be volume overloaded. Initial imaging and labs (including troponins) on admission were all negative. Patient without shortness of breath at present and appears euvolemic. Shortness of breath did not recur during this admission. Her focus then shifted into managing her cellulitis which was not well-controlled with Keflex as antibiotic regimen. We switch her antibiotic over to vancomycin, after which notable improvement was noted with regards to her cellulitis in her left lower extremity. This led us to the conclusion that the patient would likely needed an antibiotic that had adequate MRSA and strep coverage. The refore, due to patient's improvement with vancomycin, will discharge patient with Bactrim for 4 days as continued management of her cellulitis. Physical therapy also evaluated patient to assess her level of independence since she will be returning home to live alone. They deemed her to be well and strong enough to be discharged home. Patient found fit and stable to be discharged today. A prescription for antibiotics sent to her pharmacy. Her daughter Katya was also notified of her mother's state and our plan (with patient's permission). All questions answered. Total Time Total Time Spent Total Time Spent (In Minutes): As per attending attestation. Discharge Plan Discharge Items Patient Disposition: Home - Self-Care Reason For Visit: WORSENING CELLULITIS Discharge Diagnosis: Cellulitis Activity: Per Instructions section Non-emergency contact: Primary Care Provider Call non-emergency contact if: your symptoms worsen and your temperature is above 101 Follow-up/Referrals: Sravan Figueroa MD [Primary Care Provider] - 06/01/23 11:00 am Diet: Heart Healthy Addtl Attending Provider Instructions: You were admitted for management of cellulitis. You were treated with Vancomycin, an antibiotic that is helpful against certain pathogens that can lead to cellulitis but were not covered by the antibiotic you were taking before. We suspect this may have been the cause for your suboptimal control of symptoms with your previous antibiotic. We will discharge you with Bactrim, another antibiotic that can cover against these pathogens. You will be taking this antibiotic two times a day for 4 more days. A discharge summary will be sent to your primary care physician to ensure continuity of care. Please bring this discharge summary with you to your next office appointment so that your provider can review it at that time. Follow-up appointments: Make a follow-up appointment with your PCP within the next week. It is very important that you follow up with them shortly after discharge from the hospital. Keep all your follow-up appointments as already scheduled. If you cannot make an appointment, notify your provider. Medications: Your medication list has been reviewed and reconciled upon discharge to ensure a ccuracy and continuity of care. An updated list of all your medications is included with your hospital discharge paperwork. Please review this list closely, and make note of any changes. If you have any issues filling these prescriptions, please call [phone] and ask to leave a message for Dr. Mckeon. Take your medications as instructed; do not skip a dose of your medicines. Make sure all of your doctors know every medicine you are taking (including [id number] medicines, vitamins, and supplements). Call your primary care provider before taking any new medicines (including over- the-counter medicines, vitamins, and supplements), because some of these may interact with your current medications, or may make your symptoms worse. Tell your primary care provider if you cannot afford your medications. CONTACT YOUR PRIMARY CARE PROVIDER if you experience any of the following: Worsening of symptoms Fever, chills, or fatigue Difficulty following your treatment plan, or difficulty taking medications CALL 911 OR GO TO THE EMERGENCY DEPARTMENT if you experience any of the following: Sudden, severe abdominal pain or nausea/vomiting Severe chest pain, or chest pain that radiates (moves) to your jaw or arm Sudden, severe shortness of breath or difficulty breathing Thank you for allowing us to participate in your care. Pending Studies at Discharge: No Stand-Alone Forms: My [facility], Smoking Cessation Medications and DC Order Prescriptions: New sulfamethoxazole-trimethoprim [Bactrim DS] 800-160 mg Tablet 1 tab PO Q12H 4 Days Qty: 8 0RF Continued nitroglycerin [Nitrostat] 0.4 mg tablet, sublingual 0.4 mg sublingual Q5M PRN (Reason: chest pain) Qty: 20 1RF Rx Instructions: 0.4 mg tablet under tongue every 5 minutes, up to a series of 3 tabs, as n eeded for chest discomfort. Eliquis 5 mg tablet 5 mg PO BID Qty: 180 3RF pantoprazole 40 mg tablet,delayed release (DR/EC) 40 mg PO DAILYBB Qty: 90 1RF Rx Instructions: 1/2 hour prior to breakfast PO daily; buspirone 5 mg tablet 5 mg PO BID Qty: 90 3RF rosuvastatin [Crestor] 40 mg tablet 40 mg PO HS Qty: 90 3RF amiodarone 200 mg tablet 100 mg PO HS Qty: 45 3RF spironolactone 25 mg tablet 25 mg PO DAILY Qty: 30 2RF Rx Instructions: has not filled yet bumetanide 2 mg tablet 2 mg PO QAM MDD May take additional if needed Rx Instructions: May take additional 2mg is continued swelling in the afternoon. calcium carbonate [Calcium 600] 600 mg calcium (1,500 mg) Tablet 1,200 mg PO QAM cholecalciferol (vitamin D3) [Vitamin D3] 25 mcg (1,000 unit) Capsule 1,000 unit PO QAM docusate sodium 100 mg Capsule 200 mg PO BID acetaminophen 325 mg Tablet 650 mg PO Q4H PRN (Reason: pain) Qty: 60 0RF estradiol 0.075 mg/24 hr patch weekly 0.075 mg transdermal WK Rx Instructions: APPLY 1 PATCH TOPICALLY WEEKLY. CHANGE PATCH ON SUNDAYS cyanocobalamin (vitamin B-12) [Vitamin B-12] 500 mcg Tablet 500 mcg PO QAM ascorbic acid (vitamin C) [Vitamin C] 500 mg Tablet 500 mg PO QAM potassium chloride 20 mEq tablet extended release 40 meq PO QAM Rx Instructions: May take additional 40meq IF additional bumex is taken in the afternoon. mirtazapine 30 mg tablet 30 mg PO HS fluticasone propionate 50 mcg/actuation spray,suspension 2 spray NA DAILY PRN (Reason: Sinus Symptoms) Saline Mist 0.65 % aerosol,spray 1 spray NA TID PRN (Reason: Congestion) lidocaine [Lidoderm] 5 % adhesive patch,medicated 1 patch topical DAILY Qty: 15 0RF Rx Instructions: leave on most painful area for up to 12 hrs memantine 10 mg tablet 10 mg PO BID Discontinued cephalexin 500 mg Capsule 500 mg PO QID 5 Days Qty: 20 0RF Discharge Orders: Discharge Order (Routine); Ordered 05/24/23 Ordered By: Lydia Stokes/Other Patient Handouts: Cellulitis Dc Admission Data Admit Date/Time: 05/23/23 09:14 Attending Provider: Francine Xie Admit Provider: Abiodun Francis Primary Care Provider: Sravan Figueroa Other Providers: Sandra Cheng Other Interventions: Discharge Summary Assessment (RN) Last Done: 05/24/23 14:00 Supervising Physician Co-Signing Physician Notes I personally examined the patient and verified cramer points of history and exam, discussed case, and agree with decision making and plan documented by Dr. Mckeon. Left lower extremity cellulitis much improved. Patient transitioned to bactrim to complete treatment, advised to complete antibiotic course. Patient discharged home with home PT, she states she has support of family nearby, and feels safe to return home ( currently hospitalized). Francine Xie DO, MS
--- NOTE | 2023-05-27 05:41 | Coding Query ---
To promote full compliance with coding requirements relating to patient care, provider participation is requested in all cases of senior qa engineer uncertainty. Please assist us with the question(s) below: Coding Question(s): The diagnosis below was documented in the 05/21 hospitalist progress note then subsequently fell off all further documentation. Please indicate if it is still a possible diagnosis or ruled out. Physician's Response(s): ASTRID ( X ) Diagnosed and POA ( ) Diagnosed and not POA ( ) Ruled out ( ) Other (please specify) Additionally, Please clarify the meaning of ASTRID. ASTRID is not a valid abbreviation. Thank you. ( X ) Acute Kidney Injury ( ) Acute Kidney Insufficiency ( ) Other (Specify): MTDD
== END 2023-05-24 15:34 | disposition home or self-care (01) | DRG 603 ==
LOC: 3W 18:37 → ED 18:37 → SUATTDRO 21:31 → 3W 22:31 → SUATTDRO 05-23 09:14

== ENCOUNTER 2023-06-25 13:05 | Observation (INO) ==
--- NOTE | 2023-06-25 13:16 | Emergency Department Note ---
History of Present Illness General Chief complaint: Chest Pain Time Seen by Provider: 06/25/23 13:10 Source: patient, family (Daughter who arrived at the bedside), EMS (Board Member so I talked to on the phone), RN notes reviewed, old records reviewed (I have reviewed the EMS rhythm strips) and other (I did talk to the paramedics and gave Lester medical command prior to) Mode of arrival: EMS Limitations: no limitations History of Present Illness This patient 78-year-old female who was brought in by EMS after having chest pain and shortness of breath. The paramedics called and told me she was arriving. Apparently she does have history of CHF and has had weight gain. She was also cardioverted twice for a narrow complex tachycardia up to 280 that they were concerned she had SVT. The patient says she feels a lot better now. They said during these episodes she started clutching her chest and seem like she was going to pass out. She seems very shaky right now. Denies any fever chills or recent illness she has had some increased swelling in her legs. No cough no urinary symptoms. No focal numbness or weakness. No fall or trauma. Her daughter did arrive and I talked her at length as well Home Medications Medication Instructions Recorded Confirmed Type docusate sodium 100 mg capsule 200 mg PO BID 04/15/18 06/25/23 History calcium carbonate 600 mg calcium 1,200 mg PO QAM 06/08/19 06/25/23 History (1,500 mg) tablet (Calcium) cholecalciferol (vitamin D3) 25 1,000 unit PO QAM 06/08/19 06/25/23 History mcg (1,000 unit) capsule (Vitamin D3) nitroglycerin 0.4 mg sublingual 0.4 mg sublingual Q5M PRN chest 09/25/21 06/25/23 Rx tablet (Nitrostat) pain #20 tabs apixaban 5 mg tablet (Eliquis) 5 mg PO BID #180 tabs 04/29/22 06/25/23 Rx acetaminophen 325 mg tablet 650 mg (2 x 325 mg) PO Q4H PRN 05/30/22 06/25/23 Rx pain #60 tabs estradiol 0.075 mg/24 hr weekly 0.075 mg transdermal WK 07/28/22 06/25/23 History transdermal patch ascorbic acid (vitamin C) 500 mg 500 mg PO QAM 09/03/22 06/25/23 History tablet (Vitamin C) cyanocobalamin (vitamin B-12) 500 500 mcg PO QAM 09/03/22 06/25/23 History mcg tablet (Vitamin B-12) fluticasone propionate 50 2 spray NA DAILY PRN Sinus Symptoms 10/27/22 06/25/23 History mcg/actuation nasal spray,suspension pantoprazole 40 mg tablet,delayed 40 mg PO DAILYBB #90 tabs 01/06/23 06/25/23 Rx release potassium chloride 20 mEq 40 meq PO QAM 02/03/23 06/25/23 History tablet,extended release buspirone 5 mg tablet 5 mg PO BID #90 tabs 02/06/23 06/25/23 Rx rosuvastatin 40 mg tablet (Crestor) 40 mg PO HS #90 tabs 02/06/23 06/25/23 Rx amiodarone 200 mg tablet 100 mg (1/2 x 200 mg) PO HS #45 03/31/23 06/25/23 Rx tabs sodium chloride 0.65 % nasal spray 1 spray NA TID PRN Congestion 04/03/23 06/25/23 History aerosol (Saline Mist) spironolactone 25 mg tablet 25 mg PO DAILY #30 tabs 05/12/23 06/22/23 Rx bumetanide 2 mg tablet See Rx Instructions PO QAM 06/12/23 06/25/23 History memantine 10 mg tablet 10 mg PO HS #30 tabs 06/22/23 06/25/23 Rx mirtazapine 30 mg tablet 30 mg PO HS 30 days #30 tabs 06/22/23 06/25/23 Rx Allergies Allergy/AdvReac Type Severity Reaction Status Date / Time Fish Containing Products Allergy Intermediate Vomiting Verified 06/12/23 09:55 gluten Allergy Intermediate Celiac Verified 06/12/23 09:55 disease shellfish derived Allergy Intermediate Vomiting Verified 06/12/23 09:55 latex Allergy Mild Rash Verified 06/12/23 09:55 amoxicillin AdvReac Intermediate Yeast Verified 06/12/23 09:55 infection cefdinir AdvReac Intermediate nausea Verified 06/12/23 09:55 Cephalosporins AdvReac Intermediate Yeast Verified 06/12/23 09:55 infection clavulanic acid AdvReac Intermediate Yeast Verified 06/12/23 09:55 infection prednisone AdvReac Intermediate Anxiety Verified 06/12/23 09:55 Past Med/Surg History Medical History Cellulitis Shortness of breath Depression with anxiety CHF (congestive heart failure) Afib Bilateral lower extremity edema Chest pain Orthostasis Near syncope Chronic heart failure with preserved ejection fraction Tremor Hypokalemia Syncope and collapse Open wound of buttock Constipation Nausea & vomiting Vertigo Anemia RECEIVED 2 UNITS [facility] 04/2021 RECENT ADMISSION GI bleed reason for Endoscopy Atypical chest pain Acute hyponatremia CAD (coronary artery disease) Medically managed by cardiology NSTEMI 07/27/20- cath demonstrated small branch vessel disease involving small OM to, not amenable to intervention. Hypercholesterolemia Non-ST elevation PA (NSTEMI) 07/27/20 Sleep apnea CPAP History of paroxysmal supraventricular tachycardia with atrial tachycardia Diastolic CHF Paroxysmal atrial fibrillation Ocular migraine Obstructive sleep apnea Low back pain with sciatica Dyslipidemia Degenerative disc disease Hypertension CD (celiac disease) "Does not" follow gluten-free diet Diverticulitis 2013 Surgical History S/P transesophageal echocardiogram (JOHANA) Status post placement of implantable loop recorder Implanted 12/2019 - Follows Dr. Yoo > to see Dr. Powers this afternoon for check History of cataract surgery R/L History of incision and drainage Right foot History of foot surgery R/L feet "to straighten toes" History of cardioversion x2, most recent 04/2019 History of arthroscopy of right shoulder RCR History of fracture of left shoulder Plate + screws History of carpal tunnel release R/L History of hysterectomy JOANNA + BSO History of total knee replacement Left x2, right x1 History of cholecystectomy History of esophagogastroduodenoscopy (EGD) History of colonoscopy History of tonsillectomy History of cardiac cath 2015, 07/28/20 ([place]) > no stents Family History Mother Family hx of colon cancer Colorectal cancer Brother Prostate cancer Family history of diabetes mellitus Father Dissecting aortic aneurysm Myocardial infarction Grandmother (Maternal) Stroke Other No family history of adverse response to anesthesia Denies family history of Ovarian cancer Breast cancer Social History Smoking Status: Never smoker Tobacco Type: Cigarettes Age Started Using Tobacco: 19; Age Quit Using Tobacco: 27; packs per day: 0.25; Second Hand Exposure: No; Do You Dip or Chew Tobacco: No; Hx Alcohol Use: No Hx Substance Use: No Preferred Language: Yi Communication Ability: Effective Visual Impairment: No Limitations Hearing Ability: Normal Shrimp Peeler Required: No Beliefs That Will Affect Care: None marital status: Current Living Situation: Alone Current Living Situation Comment: home with 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; 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[place]; 3 children Feels Safe at Home: Yes Safety Concerns: Feels Safe At This Time Childhood Exposure to Second-Hand Smoke: No Dental Care, Regularly: Yes Physical Activity Frequency: 3-4 Times per Week Seatbelt Use: always Sunscreen Use: Yes Assistive Devices: Cane and Walker Review of Systems A total of 10 systems reviewed and were otherwise negative Physical Exam Vital Signs Vital Signs - 24 hr 06/25/23 13:11 06/25/23 13:18 06/25/23 13:23 Temperature 36.5 C Temperature Source Oral Pulse Rate 74 72 74 Pulse Rate from SpO2 Sensor Pulse Rhythm Regular Regular Pulse Strength Normal Respiratory Rate 17 17 Respiratory Effort / Characteristics Non-Labored Spontaneous Respiratory Depth Normal Respiratory Pattern Regular Blood Pressure 124/88 Blood Pressure Mean 100 Blood Pressure Position Lying Pulse Oximetry 100 100 Oxygen Delivery Method Room Air Room Air Sepsis Recent Fever Within 48 Hours No Sepsis New/Unexplained Change in Mental Status N/A Sepsis Action Taken by Nursing No Action Required 06/25/23 13:30 06/25/23 13:45 06/25/23 14:00 Temperature Temperature Source Pulse Rate 70 64 91 H Pulse Rate from SpO2 Sensor 70 65 Pulse Rhythm Pulse Strength Respiratory Rate 23 19 12 Respiratory Effort / Characteristics Respiratory Depth Respiratory Pattern Blood Pressure 116/46 L 105/47 L 149/98 H Blood Pressure Mean 69 66 115 Blood Pressure Position Pulse Oximetry 100 100 95 Oxygen Delivery Method Room Air Room Air Room Air Sepsis Recent Fever Within 48 Hours Sepsis New/Unexplained Change in Mental Status Sepsis Action Taken by Nursing 06/25/23 14:15 06/25/23 15:00 06/25/23 15:30 Temperature Temperature Source Pulse Rate 66 95 H 66 Pulse Rate from SpO2 Sensor 67 73 67 Pulse Rhythm Pulse Strength Respiratory Rate 17 12 12 Respiratory Effort / Characteristics Respiratory Depth Respiratory Pattern Blood Pressure 114/48 L 117/56 L 112/49 L Blood Pressure Mean 70 76 70 Blood Pressure Position Pulse Oximetry 99 100 98 Oxygen Delivery Method Room Air Room Air Sepsis Recent Fever Within 48 Hours Sepsis New/Unexplained Change in Mental Status Sepsis Action Taken by Nursing 06/25/23 16:00 Temperature Temperature Source Pulse Rate 68 Pulse Rate from SpO2 Sensor 68 Pulse Rhythm Pulse Strength Respiratory Rate 14 Respiratory Effort / Characteristics Respiratory Depth Respiratory Pattern Blood Pressure 125/52 L Blood Pressure Mean 76 Blood Pressure Position Pulse Oximetry 100 Oxygen Delivery Method Room Air Sepsis Recent Fever Within 48 Hours Sepsis New/Unexplained Change in Mental Status Sepsis Action Taken by Nursing General: Well developed well nourished, cachectic older female who appears achy at times but otherwise in no acute distress, breathing comfortably on room air. Normal speech HEENT: Normal cephalic atraumatic. Pupils are equal round and reactive to light. Extraocular movements are intact. Oropharynx is pink with moist mucous membranes. No swelling of the mouth lips or tongue. Neck: Supple with a midline trachea. No meningeal signs or stiffness, no JVD or bruits. No Stridor. Chest: Clear to auscultation bilaterally. No wheezes or rhonchi. No increased work of breathing. Heart: Regular rate and rhythm without murmurs or gallops. Abdomen: Soft nontender, nondistended without rebound guarding or rigidity. Extremities: No cyanosis clubbing. She has bilateral lower extremity edema. No calf tenderness or assymetry Spine/Back. Non tender to palpation. No CVA tenderness Skin: Good turgor without rashes. Neurologic exam: Cranial nerves two through 12 are intact. Motor and sensation are intact and symmetrical throughout. Course Administered Medications Polyethylene Glycol (Polyethylene (Miralax) 17 Gm Pack) 17 gm PO BID MERLIN Stop: 07/25/23 17:29 Last Admin: 06/25/23 18:37 Dose: 17 gm Documented By: RLB Discontinued Medications Morphine Sulfate (Morphine Sulfate 2 Mg/Ml Carp) 2 mg IV NOW STA Stop: 06/25/23 14:05 Last Admin: 06/25/23 14:54 Dose: 2 mg Documented By: KANNANW Ondansetron HCl (Ondansetron Inj 2 Mg/Ml 2 Ml Vial) 4 mg IV NOW STA Stop: 06/25/23 14:05 Last Admin: 06/25/23 14:54 Dose: 4 mg Documented By: PABLO Critical Care Time Critical Care Time: Yes Total Critical Care Time: 30 Due to the patient's significant illness, arrhythmia, discussion with the case with EMS for medical command after they cardioverted her twice, immediate assessment upon arrival frequent reassessment and consultations, I have personally spent greater than 30 minutes of critical care time in the direct management of this patient. This includes bedside care, interpretation of diagnostic studies, and testing, discussion with consultants, patient, and family members, and other required patient management activities. This 30 minutes is in excess of all separately billable procedures. Medical Decision Making Differential Diagnosis Acute coronary syndrome, arrhythmia, CHF, electrolyte or metabolic abnormality, infection, URI Medical Records Attestation: I reviewed the patient's medical records. Home Medications Current Medication List: was personally reviewed by me Laboratory Data Attestation: I reviewed the patient's lab results. 06/25/23 Unknown 06/25/23 Unknown Lab Results 06/25/23 06/25/23 06/25/23 Range/Units 13:20 15:17 16:30 POC Hgb 12.2 (12.0-16.0) g/dl POC Hct 36 L (37-47) % POC Sodium 139 (135-144) mmol/L POC Potassium 3.5 (3.3-5.0) mmol/L POC Chloride 97 L (101-112) mmol/L POC Total CO2 29 (24-31) mmol/L POC Anion Gap 18.0 (16-25) mmol/L POC BUN 19 H (7-18) mg/dl POC Creatinine 1.5 H (0.6-1.3) mg/dl POC Glucose (other) 92 (70-99) mg/dl POC Ioniz Calcium Joan 1.11 L (1.12-1.32) mmol/l Urine Color Yellow Urine Appearance Clear (Clear) Urine pH 8.0 H (4.5-7.5) Ur Specific [place] 1.006 (1.000-1.030) Urine Protein Negative (Negative) Urine Glucose (UA) Negative (Negative) Urine Ketones Negative (Negative) Urine Blood Negative (Negative) Urine Nitrite Negative (Negative) Urine Bilirubin Negative (Negative) Urine Urobilinogen Negative (Negative) Ur Leukocyte Esterase Negative (Negative) Adenovirus (PCR) Not Detected (NotDetected) B. pertussis DNA (PCR) Not Detected (NotDetected) B.parapertussis DNA PCR Not Detected (NotDetected) C. pneumoniae DNA (PCR) Not Detected (NotDetected) Coronavirus OC43 (PCR) Not Detected (NotDetected) Coronavirus HKU1 (PCR) Not Detected (NotDetected) Coronavirus 229E (PCR) Not Detected (NotDetected) SARS-CoV-2 (PCR) Not Detected (NotDetected) Coronavirus NL63 (PCR) Not Detected (NotDetected) Human Metapneumovir PCR Not Detected (NotDetected) Influenza Type A (PCR) Not Detected (NotDetected) Influenza Type B (PCR) Not Detected (NotDetected) M. pneumoniae (PCR) Not Detected (NotDetected) Parainfluenza 1 (PCR) Not Detected (NotDetected) Parainfluenza 2 (PCR) Not Detected (NotDetected) Parainfluenza 3 (PCR) Not Detected (NotDetected) Parainfluenza 4 (PCR) Not Detected (NotDetected) RSV (PCR) Not Detected (NotDetected) Entero/Rhino (PCR) Not Detected (NotDetected) Imaging Data Attestation: I personally reviewed and interpreted this imaging study as follows: My Impression: Chest x-rayno acute infiltrate, failure, pneumothorax seen Radiologist's Impression: Chest X-Ray 06/25/23 13:11 XR chest 1V portable CLINICAL HISTORY: Chest pain, nonspecific TECHNIQUE: Single frontal radiograph of the chest was obtained. Comparison: Comparison is made to chest radiograph 05/20/2023 FINDINGS: No free cord is again seen. Left humeral hardware is noted. Mild The lungs are clear. No evidence of pleural effusion or pneumothorax. IMPRESSION: No acute chest disease. ACT 112: Negative or not required by law. Electronically signed by: Andrey Carrasco M.D. 06/25/2023 1:43 PM Abdomen/Pelvis CT 06/25/23 14:20 CT abd pelvis wo con CLINICAL HISTORY: left abd./flank pain TECHNIQUE: Helical axial images of the abdomen and pelvis were obtained. Automated dose lowering techniques and/or adjustment according to patient size were utilized for this exam. This exam was performed without intravenous contrast. CT DOSE: 355.71 mGy.cm COMPARISON: Comparison is made to CT abdomen pelvis 04/15/2023 FINDINGS: Lower chest: No acute abnormality. Liver: Unremarkable. No focal lesions are seen. Gallbladder and biliary tree: Patient is status post cholecystectomy. No intra- or extrahepatic biliary ductal dilation. Pancreas: Unremarkable, no focal lesions. Spleen: Unremarkable. Adrenals: Unremarkable. Kidneys and ureters: Unremarkable. Bladder: Unremarkable. Reproductive organs: Patient is status post hysterectomy. Bowel: Diverticulosis is seen without evidence of diverticulitis. Lymph nodes Retroperitoneal: Calcification of right sided iliac nodes unchanged from prior exam. No lymphadenopathy. Pelvic: Unremarkable. Mesenteric: Unremarkable. Peritoneum: Normal. Vessels: Unremarkable. Abdominal wall: Unremarkable. Bones: Degenerative changes in the visualized spine. IMPRESSION: No acute abnormalities are seen, in particular no obstructive stones or diverticulitis in this patient with left abdominal and flank pain. ACT 112: Negative or not required by law. Electronically signed by: Andrey Carrasco M.D. 06/25/2023 2:53 PM Duplex Scan Lower Extremity Artery 06/25/23 16:03 US arterial duplex LE CLINICAL HISTORY: bilateral claudication, numbness, pain TECHNIQUE: Real-time grayscale and color and spectral Doppler ultrasound imaging of the bilateral lower extremity arteries was performed. Measurements calculated based on NASCET criteria. COMPARISON: None available at the time of this dictation. FINDINGS: Mild vascular calcifications are seen. Elevated velocities are seen including the following: Right: Posterior tibial artery: monophasic waveforms, maximum velocity 135 cm/s Anterior tibial artery: Biphasic waveforms, maximum velocity 110 cm/s Peroneal artery: Monophasic waveforms, maximal velocity 90 cm/s Dorsalis pedis: Monophasic waveforms, mass velocity 63 cm/s Left: Posterior tibial artery: Monophasic waveforms, maximum velocity 153 cm/s Anterior tibial artery: Monophasic waveforms, maximum velocity 118 cm/s Peroneal artery: Monophasic waveforms, maximum velocity 144 cm/s Dorsalis pedis artery: Monophasic waveforms, maximum velocity 126 cm/s IMPRESSION: Monophasic waveforms with minimally elevated velocities as above. ACT 112: Negative or not required by law. Electronically signed by: Andrey Carrasco M.D. 06/25/2023 6:00 PM ECG Data Attestation: I personally reviewed and interpreted this ECG as follows: Indication: + chest pain Rate (beats per minute): 76 Rhythm: + normal sinus ECG Intervals/blocks: + Normal QRS, + Normal QT and + Normal PA ECG [place]: + Normal ECG ST segments: + Normal ST segments ECG Findings: no PACs or no PVCs Comparison ECG Date: from (05/20/23) Change: no significant change MDM Narrative This patient comes in as scribed above. I did talk to the paramedics prior to arrival they had cardioverted her twice and so I saw her immediately upon arrival as we placed her in room B1. she seems very shaky and does have a lot of artifact on the monitor however when I checked her pulse it is regular and normal. Chest x-ray, EKG, and multiple blood testing was obtained . she has a large-bore IV in her left arm we established a second. I reviewed her records she does have a history of CHF as well as A-fib. She has remained stable here had no further cardiac events or arrhythmia. Her EKG here was unremarkable initial troponin is unremarkable chest x-ray does not show overt CHF. BNP is mildly elevated she is no sign of electrolyte or metabolic abnormalities. Her daughter arrived and says she was complained some left flank pain so I did order urinalysis and also did a CAT scan of the abdomen pelvis there was no acute abnormality seen there is no evidence of any aneurysm or kidney stone. At 1 point she started having severe pain in her right leg but this lasted very briefly I did order IV morphine IV Zofran but the pain actually abated before Jessi gave her the medication. She is a good dopplerable pulse and no numbness or weakness. Given the chest pain and the cardioversion I do think she needs to be admitted/observed for a cardiac evaluation and further evaluation. I have discussed case at length with Dr. Jacobo Coffey who saw the patient ER will admit/observe her for these measures Continuous cardiac monitoring: orders placed in EMR for continuous cardiac monitoring. Upon my evaluation patient noted to be in normal sinus rhythm with a rate of 65. Impression & Plan Chest pain, Acute left flank pain, Current use of long wall mining machine tender anticoagulation, History of atrial fibrillation, History of cardioversion Discharge Plan Visit Data Chief Complaint: Chest Pain ED Provider: Rhett Agiurre Discharge Problem: Chest pain, Acute left flank pain, Current use of long wall mining machine tender anticoagulation, History of atrial fibrillation, History of cardioversion Patient Disposition: Admitted As Inpatient Discharge Instructions Interventions: ED Discharge Assessment Last Done: 06/25/23 16:45 Discharge Problem: Chest pain Qualifiers: Chest pain type: unspecified Qualified Code(s): R07.9 - Chest pain, unspecified
[2023-06-25 13:33] LABS: iSTAT Creatinine 1.5 mg/dl (0.6-1.3); iSTAT Hemoglobin 12.2 g/dl (12.0-16.0); iSTAT Ionized Calcium 1.11 mmol/l (1.12-1.32); iSTAT Potassium 3.5 mmol/L (3.3-5.0)
[2023-06-25 13:40] LABS: Hematocrit (blood only) 32.6 % (37.0-47.0); Hemoglobin 11.3 g/dl (12.0-16.0); Mean Corpuscular Hemoglobin 32.5 pg (25.0-34.0); Mean Corpuscular Hgb Conc 34.7 g/dL (32.0-36.0); Mean Corpuscular Volume 93.7 fL (80.0-100.0); Mean Platelet Volume 11.7 fL (9.4-12.4); Platelet Count 202 K/uL (130-400); RDW Coefficient of Variation 13.9 % (11.5-14.5); RDW Standard Deviation 47.6 fL (36.4-46.3); Red Blood Count 3.48 M/uL (4.20-5.40); White Blood Count 8.85 K/ul (4.8-10.8)
--- NOTE | 2023-06-25 13:45 | XRay Report ---
XR chest 1V portable CLINICAL HISTORY: Chest pain, nonspecific TECHNIQUE: Single frontal radiograph of the chest was obtained. Comparison: Comparison is made to chest radiograph 05/20/2023 FINDINGS: No free cord is again seen. Left humeral hardware is noted. Mild The lungs are clear. No evidence of pleural effusion or pneumothorax. IMPRESSION: No acute chest disease. ACT 112: Negative or not required by law. Electronically signed by: Andrey Carrasco M.D. 06/25/2023 1:43 PM
[2023-06-25 13:54] LABS: Alanine Aminotransferase 12 U/L (7-52); Albumin Globulin Ratio 1.3 (0.9-2); Albumin Level 4.3 gm/dl (3.4-5.0); Alkaline Phosphatase 93 U/L (34-104); Anion Gap 9 (3-11); Aspartate Aminotransferase 21 U/L (13-39); Bilirubin,Total 0.4 mg/dl (0.2-1.0); Blood Urea Nitrogen 20 mg/dl (6-23); Calcium 9.3 mg/dl (8.6-10.3); Carbon Dioxide 30 mmol/L (21-32); Chloride 99 mmol/L (98-107); Est GFR (African American) 47.7 ml/min; Est GFR (Non-African American) 41.2 ml/min; Globulin 3.2 gm/dl (2.5-4.0); Glucose 89 mg/dl (70-99(Fasting)); Lipase 20 U/L (11-82); Potassium 3.5 mmol/L (3.5-5.1); Sodium 138 mmol/L (136-145); Total Protein 7.5 gm/dl (6.0-8.3)
[2023-06-25 14:00] LABS: Troponin I High Sensitivity 6.3 pg/ml (0-14)
[2023-06-25 14:04] LABS: INR 1.1 (0.9-1.1); Partial Thromboplastin Ratio 1.1; Partial Thromboplastin Time 31 Seconds (21-31)
[2023-06-25] MEDS: MoRPHine SULFATE 2 MG/ML CARP IV STA (14:54)
[2023-06-25] MEDS: ONDANSETRON INJ 2 MG/ML 2 ML VIAL IV STA (14:54)
--- NOTE | 2023-06-25 14:55 | CT Scan Report ---
CT abd pelvis wo con CLINICAL HISTORY: left abd./flank pain TECHNIQUE: Helical axial images of the abdomen and pelvis were obtained. Automated dose lowering tech niques and/or adjustment according to patient size were utilized for this exam. This exam was perfor med without intravenous contrast. CT DOSE: 355.71 mGy.cm COMPARISON: Comparison is made to CT abdomen pelvis 04/15/2023 FINDINGS: Lower chest: No acute abnormality. Liver: Unremarkable. No focal lesions are seen. Gallbladder and biliary tree: Patient is status post cholecystectomy. No intra- or extrahepatic bilia ry ductal dilation. Pancreas: Unremarkable, no focal lesions. Spleen: Unremarkable. Adrenals: Unremarkable. Kidneys and ureters: Unremarkable. Bladder: Unremarkable. Reproductive organs: Patient is status post hysterectomy. Bowel: Diverticulosis is seen without evidence of diverticulitis. Lymph nodes Retroperitoneal: Calcification of right sided iliac nodes unchanged from prior exam. No lymphadenopat hy. Pelvic: Unremarkable. Mesenteric: Unremarkable. Peritoneum: Normal. Vessels: Unremarkable. Abdominal wall: Unremarkable. Bones: Degenerative changes in the visualized spine. IMPRESSION: No acute abnormalities are seen, in particular no obstructive stones or diverticulitis in this patien t with left abdominal and flank pain. ACT 112: Negative or not required by law. Electronically signed by: Andrey Carrasco M.D. 06/25/2023 2:53 PM
--- NOTE | 2023-06-25 15:05 | Electrocardiogram Report ---
Test Reason : Blood Pressure : / mmHG Vent. Rate : 074 BPM Atrial Rate : 074 BPM P-R Int : 156 ms QRS Dur : 086 ms QT Int : 424 ms P-R-T Axes : 083 079 074 degrees QTc Int : 470 ms Normal sinus rhythm Normal ECG When compared with ECG of 20-MAY-2023 19:07, No significant change was found Confirmed by Jayy Jaimes ([id number]) on 06/25/2023 3:05:36 PM Referred By: Confirmed By:Jayy Jaimes
[2023-06-25 15:10] LABS: Acanthocytes 1+; Basophils # (auto) 0.04 K/uL (0.00-0.20); Basophils % (auto) 0.5 %; Eosinophils # (auto) 0.04 K/uL (0.00-0.50); Eosinophils % (auto) 0.5 %; Immature Granulocytes # (auto) 0.01 K/uL (0.01-0.20); Immature Granulocytes % (auto) 0.1 %; Lymphocytes # (auto) 5.32 K/uL (1.20-3.40); Lymphocytes % (auto) 60.1 %; Monocytes # (auto) 0.77 K/uL (0.11-0.59); Monocytes % (auto) 8.7 %; Neutrophils # (auto) 2.67 K/uL (1.40-6.50); Neutrophils % (auto) 30.1 %; Ovalocytes 1+
--- NOTE | 2023-06-25 15:21 | History & Physical Report ---
Date of Service June 25, 2023 Assessment & Plan (1) Chest pressure: Plan: Cardioverted x2 by EMS Suspect due to paroxysmal atrial fibrillation. Will monitor on telemetry for recurrence. Serial troponins. (2) Lymphocytosis: Plan: Biofire PCR negative (3) Bilateral leg pain: Plan: Suspect bilateral cramps. Previous diagnosis in 10/2017 without any specific etiology on lumbar spine MRI at that tme. (4) CHF (congestive heart failure): Plan: Appears euvolemic. Continue her usual Bumex dosing. (5) Bilateral lower extremity edema: Plan: Suspect mostly due to venous insufficiency currently as otherwise appears euvolemic and heart rate is down (6) Physical deconditioning: Plan: PT/OT (7) Dementia: Plan: Continue memantine Plan VTE Prophylaxis - Eliquis Diet - low Na, heart healthy Disposition - observation to PCU Admission and Anticipated Discharge Date Admission Date: June 25, 2023 History of Present Illness Chief Complaint: Chest pressure Bilateral leg pain Primary Care Provider: Sravan Figueroa MD Ximena Maxwell is a 78 year old female who presents to the ER with chest pressure. EMS reported she was tachycardic and presyncope with hypotension therefore cardioversion performed @ 100J on route. Symptoms then recurred and patient was cardioverted a second time. In the ER she is chest pain free. She reports the chest pressure started yesterday afternoon. Worse on exertion with associated shortness of breath. Difficult to get a good timeline from the patient but would come on only for exertion and take 15 minutes for resolution at rest. Today she could hardly talk the crushing chest pain was so much and she felt miserable. She had to stay seated for a few hours. When her daughter came around noon she was in the recliner gasping for air. Her daughter tried to get her up to the weight scale but she looked like she was going to pass out. She got her back to her chair but on trying to move again she nearly passed out again. She started wheezing and gasping for air therefore EMS were called. She has a significant history of atrial fibrillation which she reports usually feeling with lightheadedness however she feels this was somehow different but cannot explain how. While in the ER she is not having bilateral leg pain - starting going really cold and starting to squeeze and pain in feet all the way up into her legs but mainly in her calves. Over the last week she has been generally less well than her baseline with more generalized weakness, fatigue, lower back pain, chills and dysuria. Allergies Allergy/AdvReac Type Severity Reaction Status Date / Time Fish Containing Products Allergy Intermediate Vomiting Verified 06/12/23 09:55 gluten Allergy Intermediate Celiac Verified 06/12/23 09:55 disease shellfish derived Allergy Intermediate Vomiting Verified 06/12/23 09:55 latex Allergy Mild Rash Verified 06/12/23 09:55 amoxicillin AdvReac Intermediate Yeast Verified 06/12/23 09:55 infection cefdinir AdvReac Intermediate nausea Verified 06/12/23 09:55 Cephalosporins AdvReac Intermediate Yeast Verified 06/12/23 09:55 infection clavulanic acid AdvReac Intermediate Yeast Verified 06/12/23 09:55 infection prednisone AdvReac Intermediate Anxiety Verified 06/12/23 09:55 Home Medications Medication Instructions Recorded Confirmed Type docusate sodium 100 mg capsule 200 mg PO BID 04/15/18 06/25/23 History calcium carbonate 600 mg calcium 1,200 mg PO QAM 06/08/19 06/25/23 History (1,500 mg) tablet (Calcium) cholecalciferol (vitamin D3) 25 1,000 unit PO QAM 06/08/19 06/25/23 History mcg (1,000 unit) capsule (Vitamin D3) nitroglycerin 0.4 mg sublingual 0.4 mg sublingual Q5M PRN chest 09/25/21 06/25/23 Rx tablet (Nitrostat) pain #20 tabs apixaban 5 mg tablet (Eliquis) 5 mg PO BID #180 tabs 04/29/22 06/25/23 Rx acetaminophen 325 mg tablet 650 mg (2 x 325 mg) PO Q4H PRN 05/30/22 06/25/23 Rx pain #60 tabs estradiol 0.075 mg/24 hr weekly 0.075 mg transdermal WK 07/28/22 06/25/23 History transdermal patch ascorbic acid (vitamin C) 500 mg 500 mg PO QAM 09/03/22 06/25/23 History tablet (Vitamin C) cyanocobalamin (vitamin B-12) 500 500 mcg PO QAM 09/03/22 06/25/23 History mcg tablet (Vitamin B-12) fluticasone propionate 50 2 spray NA DAILY PRN Sinus Symptoms 10/27/22 06/25/23 History mcg/actuation nasal spray,suspension pantoprazole 40 mg tablet,delayed 40 mg PO DAILYBB #90 tabs 01/06/23 06/25/23 Rx release potassium chloride 20 mEq 40 meq PO QAM 02/03/23 06/25/23 History tablet,extended release buspirone 5 mg tablet 5 mg PO BID #90 tabs 02/06/23 06/25/23 Rx rosuvastatin 40 mg tablet (Crestor) 40 mg PO HS #90 tabs 02/06/23 06/25/23 Rx amiodarone 200 mg tablet 100 mg (1/2 x 200 mg) PO HS #45 03/31/23 06/25/23 Rx tabs sodium chloride 0.65 % nasal spray 1 spray NA TID PRN Congestion 04/03/23 06/25/23 History aerosol (Saline Mist) spironolactone 25 mg tablet 25 mg PO DAILY #30 tabs 05/12/23 06/22/23 Rx bumetanide 2 mg tablet See Rx Instructions PO QAM 06/12/23 06/25/23 History memantine 10 mg tablet 10 mg PO HS #30 tabs 06/22/23 06/25/23 Rx mirtazapine 30 mg tablet 30 mg PO HS 30 days #30 tabs 06/22/23 06/25/23 Rx Past Med/Surg History Medical History Cellulitis Shortness of breath Depression with anxiety CHF (congestive heart failure) Afib Bilateral lower extremity edema Chest pain Orthostasis Near syncope Chronic heart failure with preserved ejection fraction Tremor Hypokalemia Syncope and collapse Open wound of buttock Constipation Nausea & vomiting Vertigo Anemia RECEIVED 2 UNITS [facility] 04/2021 RECENT ADMISSION GI bleed reason for Endoscopy Atypical chest pain Acute hyponatremia CAD (coronary artery disease) Medically managed by cardiology NSTEMI 07/27/20- cath demonstrated small branch vessel disease involving small OM to, not amenable to intervention. Hypercholesterolemia Non-ST elevation NC (NSTEMI) 07/27/20 Sleep apnea CPAP History of paroxysmal supraventricular tachycardia with atrial tachycardia Diastolic CHF Paroxysmal atrial fibrillation Ocular migraine Obstructive sleep apnea Low back pain with sciatica Dyslipidemia Degenerative disc disease Hypertension CD (celiac disease) "Does not" follow gluten-free diet Diverticulitis 2013 Surgical History S/P transesophageal echocardiogram (JOHANA) Status post placement of implantable loop recorder Implanted 12/2019 - Follows Dr. Yoo > to see Dr. Powers this afternoon for check History of cataract surgery R/L History of incision and drainage Right foot History of foot surgery R/L feet "to straighten toes" History of cardioversion x2, most recent 04/2019 History of arthroscopy of right shoulder RCR History of fracture of left shoulder Plate + screws History of carpal tunnel release R/L History of hysterectomy JOANNA + BSO History of total knee replacement Left x2, right x1 History of cholecystectomy History of esophagogastroduodenoscopy (EGD) History of colonoscopy History of tonsillectomy History of cardiac cath 2015, 07/28/20 ([place]) > no stents Family History Mother Family hx of colon cancer Colorectal cancer Brother Prostate cancer Family history of diabetes mellitus Father Dissecting aortic aneurysm Myocardial infarction Grandmother (Maternal) Stroke Other No family history of adverse response to anesthesia Denies family history of Ovarian cancer Breast cancer Social History Smoking Status: Never smoker Tobacco Type: Cigarettes Age Started Using Tobacco: 19; Age Quit Using Tobacco: 27; packs per day: 0.25; Second Hand Exposure: No; Do You Dip or Chew Tobacco: No; Hx Alcohol Use: No Hx Substance Use: No Preferred Language: Dominican Communication Ability: Effective Visual Impairment: No Limitations Hearing Ability: Normal Mental Health Therapist Required: No Beliefs That Will Affect Care: None marital status: Current Living Situation: Alone Current Living Situation Comment: home with 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; 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[employer]; 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 Feels Safe at Home: Yes Safety Concerns: Feels Safe At This Time Childhood Exposure to Second-Hand Smoke: No Dental Care, Regularly: Yes Physical Activity Frequency: 3-4 Times per Week Seatbelt Use: always Sunscreen Use: Yes Assistive Devices: Cane and Walker Review of Systems 2 Review of Systems: All systems reviewed & are unremarkable except as noted in HPI & below Physical Exam 2 Constitutional: WD/WN, vitals as above Eyes: PERRL, conjunctivae normal, anicteric sclerae ENMT: external ear and nose normal, oropharynx normal Respiratory: normal respiratory effort, lungs clear to auscultation A uscultation: no wheezes Cardiovascular: Rate/Rhythm: regular rate and regular rhythm Heart Sounds: no murmur Extremities: normal capillary refill, + calf tenderness (b/l) and + pedal edema (2+ b/l equal) Gastrointestinal (Abdomen): normal bowel sounds, soft, nontender, no hepatosplenomegaly Musculoskeletal: Pain on palpation of b/l lower extremities Skin: Mild erythema of left lower extremity which does not extend beyond ankles Neurologic: moves all extremities and awake; no focal motor deficits and not confused Psychiatric: Orientation: alert and oriented x 3 Results & Data Results & Data Vital Signs (Past 12 Hours) Vital Signs Temp Pulse Resp BP Pulse Ox O2 Del Method 06/25/23 14:15 66 17 114/48 L 99 Room Air 06/25/23 14:00 91 H 12 149/98 H 95 Room Air 06/25/23 13:45 64 19 105/47 L 100 Room Air 06/25/23 13:30 70 23 116/46 L 100 Room Air 06/25/23 13:23 74 06/25/23 13:18 72 17 100 Room Air 06/25/23 13:11 36.5 C 74 17 124/88 100 Room Air Laboratory Results Abnormal lab results 06/25/23 06/25/23 Range/Units 13:20 Unknown RBC 3.48 L (4.20-5.40) M/uL Hgb 11.3 L (12.0-16.0) g/dl Hct 32.6 L (37.0-47.0) % POC Hct 36 L (37-47) % RDW Std Deviation 47.6 H (36.4-46.3) fL Lymph # (Auto) 5.32 H (1.20-3.40) K/uL Duchesne # (Auto) 0.77 H (0.11-0.59) K/uL POC Chloride 97 L (101-112) mmol/L POC BUN 19 H (7-18) mg/dl Creatinine 1.25 H (0.6-1.2) mg/dl POC Creatinine 1.5 H (0.6-1.3) mg/dl POC Ioniz Calcium Joan 1.11 L (1.12-1.32) mmol/l B-Natriuretic Peptide 118 H (0-100) pg/ml Diagnostic Findings XR chest 1V portable CLINICAL HISTORY: Chest pain, nonspecific TECHNIQUE: Single frontal radiograph of the chest was obtained. Comparison: Comparison is made to chest radiograph 05/20/2023 FINDINGS: No free cord is again seen. Left humeral hardware is noted. Mild The lungs are clear. No evidence of pleural effusion or pneumothorax. IMPRESSION: No acute chest disease. CT abd pelvis wo con CLINICAL HISTORY: left abd./flank pain TECHNIQUE: Helical axial images of the abdomen and pelvis were obtained. Automated dose lowering techniques and/or adjustment according to patient size were utilized for this exam. This exam was performed without intravenous contrast. CT DOSE: 355.71 mGy.cm COMPARISON: Comparison is made to CT abdomen pelvis 04/15/2023 FINDINGS: Lower chest: No acute abnormality. Liver: Unremarkable. No focal lesions are seen. Gallbladder and biliary tree: Patient is status post cholecystectomy. No intra- or extrahepatic biliary ductal dilation. Pancreas: Unremarkable, no focal lesions. Spleen: Unremarkable. Adrenals: Unremarkable. Kidneys and ureters: Unremarkable. Bladder: Unremarkable. Reproductive organs: Patient is status post hysterectomy. Bowel: Diverticulosis is seen without evidence of diverticulitis. Lymph nodes Retroperitoneal: Calcification of right sided iliac nodes unchanged from prior exam. No lymphadenopathy. Pelvic: Unremarkable. Mesenteric: Unremarkable. Peritoneum: Normal. Vessels: Unremarkable. Abdominal wall: Unremarkable. Bones: Degenerative changes in the visualized spine. IMPRESSION: No acute abnormalities are seen, in particular no obstructive stones or diverticulitis in this patient with left abdominal and flank pain. Medications Administered ER medications given: Ondansetron 4 mg IV Morphine 2 mg IV ECG Rate (beats per minute): 74 Rhythm: normal sinus Findings: no acute ischemic change Comparison ECG Date: from (May 20, 2023) Change: no significant change Additional Comments: EMS strip Code Status & VTE Plan Code Status DNR/DNI VTE Prophylaxis Plan VTE Prophylaxis will be ordered: Yes PG Care Time/CCT Total # of Minutes Spent Total Time Spent with Patient: Total time spent is greater than 50% in coordination of care (as documented) at patient's floor/unit and/or counseling patient: Coding Level of Care Code 10385 INT INP/OBS CARE 3/75MIN Diagnoses Chest pressure R07.89 Lymphocytosis D72.820 Bilateral leg pain M79.604; M79.605 CHF (congestive heart failure) I50.9 Bilateral lower extremity edema R60.0 Physical deconditioning R53.81 Dementia F03.90
[2023-06-25 15:35] LABS: Appearance Urine Clear (Clear); Bilirubin Urine Negative (Negative); Blood Urine Negative (Negative); Color Urine Yellow; Glucose Urine UA Negative (Negative); Ketones Urine Negative (Negative); Leukocyte Esterase Urine Negative (Negative); Nitrite Urine Negative (Negative); Protein Urine Negative (Negative); Specific Gravity Urine 1.006 (1.000-1.030); Urobilinogen Urine Negative (Negative)
[2023-06-25 15:52] LABS: Magnesium 2.2 mg/dl (1.7-2.4)
[2023-06-25 16:08] LABS: Thyroid Stimulating Hormone 3.563 uIu/ml (0.300-4.500)
[2023-06-25 17:28] LABS: Adenovirus PCR Not Detected (NotDetected); Bordetella parapertussis PCR Not Detected (NotDetected); Bordetella pertussis PCR Not Detected (NotDetected); Chlamydia pneumoniae PCR Not Detected (NotDetected); Coronavirus 229E PCR Not Detected (NotDetected); Coronavirus CoV-2 (COVID19)PCR Not Detected (NotDetected); Coronavirus HKU1 PCR Not Detected (NotDetected); Coronavirus NL63 PCR Not Detected (NotDetected); Coronavirus OC43PCR Not Detected (NotDetected); Human Metapneumovirus PCR Not Detected (NotDetected); Influenza A PCR Not Detected (NotDetected); Influenza B PCR Not Detected (NotDetected); Mycoplasma pneumoniae PCR Not Detected (NotDetected); Parainfluenza Virus 1 PCR Not Detected (NotDetected); Parainfluenza Virus 2 PCR Not Detected (NotDetected); Parainfluenza Virus 3 PCR Not Detected (NotDetected); Parainfluenza Virus 4 PCR Not Detected (NotDetected); Respiratory Syncytial VirusPCR Not Detected (NotDetected); Rhinovirus/Enterovirus PCR Not Detected (NotDetected)
--- NOTE | 2023-06-25 18:02 | Ultrasound Report ---
US arterial duplex LE BI CLINICAL HISTORY: bilateral claudication, numbness, pain TECHNIQUE: Real-time grayscale and color and spectral Doppler ultrasound imaging of the bilateral low er extremity arteries was performed. Measurements calculated based on NASCET criteria. COMPARISON: None available at the time of this dictation. FINDINGS: Mild vascular calcifications are seen. Elevated velocities are seen including the following: Right: Posterior tibial artery: monophasic waveforms, maximum velocity 135 cm/s Anterior tibial artery: Biphasic waveforms, maximum velocity 110 cm/s Peroneal artery: Monophasic waveforms, maximal velocity 90 cm/s Dorsalis pedis: Monophasic waveforms, mass velocity 63 cm/s Left: Posterior tibial artery: Monophasic waveforms, maximum velocity 153 cm/s Anterior tibial artery: Monophasic waveforms, maximum velocity 118 cm/s Peroneal artery: Monophasic waveforms, maximum velocity 144 cm/s Dorsalis pedis artery: Monophasic waveforms, maximum velocity 126 cm/s IMPRESSION: Monophasic waveforms with minimally elevated velocities as above. ACT 112: Negative or not required by law. Electronically signed by: Andrey Carrasco M.D. 06/25/2023 6:00 PM
[2023-06-25] MEDS: POLYETHYLENE (MIRALAX) 17 GM PACK PO SCH (18:37)
[2023-06-25] MEDS: MEMANTINE HCL 10 MG TAB PO SCH (21:06)
[2023-06-25] MEDS: MIRTAZAPINE TAB 15 MG TAB PO SCH (21:06)
[2023-06-25] MEDS: ROSUVASTATIN CALCIUM 20 MG TAB PO SCH (21:06)
[2023-06-25] MEDS: DOCUSATE SODIUM 100 MG CAP PO SCH (21:06)
[2023-06-25] MEDS: busPIRone 5 MG TAB PO SCH (21:07)
[2023-06-25] MEDS: AMIODARONE 200 MG TAB PO SCH (21:07)
[2023-06-25] MEDS: APIXABAN 5 MG TABLET PO SCH (21:07)
[2023-06-25] MEDS: ACETAMINOPHEN 325 MG TAB PO PRN (21:09)
[2023-06-26] MEDS: PANTOprazole 40 MG TAB PO SCH (07:15)
--- NOTE | 2023-06-26 07:37 | Hospitalist Progress Note ---
Date of Service June 26, 2023 Assessment & Plan (1) Lymphocytosis: (2) History of atrial fibrillation: (3) History of cardioversion: (4) Current use of press tender long goods anticoagulation: (5) Chest pain: (6) Physical deconditioning: (7) Bilateral lower extremity edema: (8) CHF (congestive heart failure): (9) Acute on chronic heart failure with preserved ejection fraction: Plan Chest Pressure Suspect due to paroxysmal atrial fibrillation. Will monitor on telemetry for recurrence. Serial troponins. Lymphocytosis Biofire PCR negative Bilateral leg pain Suspect bilateral cramps. Previous diagnosis in 10/2017 without any specific etiology on lumbar spine MRI at that time. CHF (congestive heart failure) Appears euvolemic. Continue her usual Bumex dosing. Bilateral lower extremity edema Suspect mostly due to venous insufficiency currently as otherwise appears euvolemic and heart rate is down Physical deconditioning PT/OT Dementia Continue memantine VTE Prophylaxis - Eliquis Diet - low Na, heart healthy Disposition - observation, PCU Admission and Anticipated Discharge Date Admission Date: June 25, 2023 Subjective No acute events reported overnight. Review of Systems Review of Systems: As per above Results & Data Results & Data Vital Signs (Past 12 Hours) Vital Signs Temp Pulse Pulse Resp BP BP Pulse Ox 06/26/23 07:16 52 L 06/26/23 02:45 36.3 C L 55 L 18 105/46 L 99 06/26/23 00:26 55 L 06/25/23 23:11 36.4 C L 54 L 20 90/46 L 97 06/25/23 21:03 54 L 108/43 L 06/25/23 20:13 36.5 C 56 L 20 94/44 L 99 O2 Del Method 06/26/23 07:16 06/26/23 02:45 Room Air 06/26/23 00:26 06/25/23 23:11 Room Air 06/25/23 21:03 06/25/23 20:13 Room Air Resident Activity Tracking Resident Involvement: Resident Care Provided Care Provided: Adult Hospital Medicine (5) Chest pain Chest pain type: unspecified Qualified Code(s): R07.9 - Chest pain, unspecified
[2023-06-26 08:01] LABS: Calcium 8.7 mg/dl (8.6-10.3); Potassium 4.2 mmol/L (3.5-5.1)
[2023-06-26 08:15] LABS: BUN Creatinine Ratio 13.1 (10-20); Creatinine Clr Calc Pharmacy 33.2 ml/min; Est GFR (African American) 42.7 ml/min; Est GFR (Non-African American) 36.9 ml/min; Troponin I High Sensitivity 9.3 pg/ml (0-14)
[2023-06-26 08:35] LABS: Hematocrit (blood only) 33.1 % (37.0-47.0); Hemoglobin 10.7 g/dl (12.0-16.0); Mean Corpuscular Hemoglobin 31.8 pg (25.0-34.0); Mean Corpuscular Hgb Conc 32.3 g/dL (32.0-36.0); Mean Corpuscular Volume 97.4 fL (80.0-100.0); Mean Platelet Volume 12.5 fL (9.4-12.4); Platelet Count 139 K/uL (130-400); RDW Coefficient of Variation 14.3 % (11.5-14.5); RDW Standard Deviation 51.5 fL (36.4-46.3); Red Blood Count 3.36 M/uL (4.20-5.40); White Blood Count 4.26 K/ul (4.8-10.8)
[2023-06-26 08:36] LABS: Basophils # (auto) 0.05 K/uL (0.00-0.20); Basophils % (auto) 1.2 %; Eosinophils # (auto) 0.09 K/uL (0.00-0.50); Eosinophils % (auto) 2.1 %; Immature Granulocytes # (auto) 0.01 K/uL (0.01-0.20); Immature Granulocytes % (auto) 0.2 %; Lymphocytes # (auto) 1.86 K/uL (1.20-3.40); Lymphocytes % (auto) 43.7 %; Monocytes # (auto) 0.47 K/uL (0.11-0.59); Neutrophils # (auto) 1.78 K/uL (1.40-6.50); Neutrophils % (auto) 41.8 %
[2023-06-26] MEDS: SPIRONOLACTONE 25 MG TAB PO SCH (08:39)
[2023-06-26] MEDS: CHOLECALCIFEROL 25 MCG (1000 UNITS) TAB PO SCH (08:39)
[2023-06-26] MEDS: CYANOCOBALAMIN (B-12) 500 MCG TABLET PO SCH (08:39)
[2023-06-26] MEDS: POTASSIUM CHLORIDE CRTAB 20 MEQ TABCR PO SCH (08:39)
[2023-06-26] MEDS: CALCIUM CARBONATE 1250MG TAB PO SCH (08:39)
[2023-06-26] MEDS: BUMETANIDE 1 MG TAB PO SCH (08:40)
--- NOTE | 2023-06-26 16:06 | Discharge Summary ---
Date of Service June 26, 2023 Admission HPI Per Admitting Provider Ximena Maxwell is a 78 year old female who presents to the ER with chest pressure. EMS reported she was tachycardic and presyncope with hypotension therefore cardioversion performed @ 100J on route. Symptoms then recurred and patient was cardioverted a second time. In the ER she is chest pain free. She reports the chest pressure started yesterday afternoon. Worse on exertion with associated shortness of breath. Difficult to get a good timeline from the patient but would come on only for exertion and take 15 minutes for resolution at rest. Today she could hardly talk the crushing chest pain was so much and she felt miserable. She had to stay seated for a few hours. When her daughter came around noon she was in the recliner gasping for air. Her daughter tried to get her up to the weight scale but she looked like she was going to pass out. She got her back to her chair but on trying to move again she nearly passed out again. She started wheezing and gasping for air therefore EMS were called. She has a significant history of atrial fibrillation which she reports usually feeling with lightheadedness however she feels this was somehow different but cannot explain how. While in the ER she is not having bilateral leg pain - starting going really cold and starting to squeeze and pain in feet all the way up into her legs but mainly in her calves. Over the last week she has been generally less well than her baseline with more generalized weakness, fatigue, lower back pain, chills and dysuria. Admission Exam Per Admitting Provider Constitutional: WD/WN, vitals as above Eyes: PERRL, conjunctivae normal, anicteric sclerae ENMT: external ear and nose normal, oropharynx normal Respiratory: normal respiratory effort, lungs clear to auscultation Auscultation: no wheezes Cardiovascular: Rate/Rhythm: regular rate and regular rhythm Heart Sounds: no murmur Extremities: normal capillary refill, + calf tenderness (b/l) and + pedal edema (2+ b/l equal) Gastrointestinal (Abdomen): normal bowel sounds, soft, nontender, no hepatosplenomegaly Musculoskeletal: Pain on palpation of b/l lower extremities Skin: Mild erythema of left lower extremity which does not extend beyond ankles Neurologic: moves all extremities and awake; no focal motor deficits and not confused Psychiatric: Orientation: alert and oriented x 3 Principal Diagnosis atrial flutter Discharge Exam Constitutional WD/WN, vitals as above Eyes + anicteric sclerae; no conjunctival abnormality ENMT Ears: no external ear abnormality Nose: no external nose abnormality moist mucous membranes Respiratory normal respiratory effort, lungs clear to auscultation Cardiovascular Rate/Rhythm: regular rate and regular rhythm +2 edema of bilateral lower extremities Gastrointestinal (Abdomen) Abdomen soft, nontender and nondistended Musculoskeletal Gait: normal gait Moves all limbs independently Neurologic no focal motor deficits Psychiatric A+Ox3, euthymic affect Discharge Data Allergies Allergy/AdvReac Type Severity Reaction Status Date / Time Fish Containing Products Allergy Intermediate Vomiting Verified 06/12/23 09:55 gluten Allergy Intermediate Celiac Verified 06/12/23 09:55 disease shellfish derived Allergy Intermediate Vomiting Verified 06/12/23 09:55 latex Allergy Mild Rash Verified 06/12/23 09:55 amoxicillin AdvReac Intermediate Yeast Verified 06/12/23 09:55 infection cefdinir AdvReac Intermediate nausea Verified 06/12/23 09:55 Cephalosporins AdvReac Intermediate Yeast Verified 06/12/23 09:55 infection clavulanic acid AdvReac Intermediate Yeast Verified 06/12/23 09:55 infection prednisone AdvReac Intermediate Anxiety Verified 06/12/23 09:55 Consultations 06/25/23 15:16 ED Decision to Admit Stat Ordered Studies 06/25/23 14:20 CT stones [CT abd pelvis wo con] Stat 06/25/23 16:03 US arterial duplex LE BI Stat Chest X-Ray 06/25/23 13:11 XR chest 1V portable CLINICAL HISTORY: Chest pain, nonspecific TECHNIQUE: Single frontal radiograph of the chest was obtained. Comparison: Comparison is made to chest radiograph 05/20/2023 FINDINGS: No free cord is again seen. Left humeral hardware is noted. Mild The lungs are clear. No evidence of pleural effusion or pneumothorax. IMPRESSION: No acute chest disease. ACT 112: Negative or not required by law. Electronically signed by: Andrey Carrasco M.D. 06/25/2023 1:43 PM Abdomen/Pelvis CT 06/25/23 14:20 CT abd pelvis wo con CLINICAL HISTORY: left abd./flank pain TECHNIQUE: Helical axial images of the abdomen and pelvis were obtained. Automated dose lowering techniques and/or adjustment according to patient size were utilized for this exam. This exam was performed without intravenous contrast. CT DOSE: 355.71 mGy.cm COMPARISON: Comparison is made to CT abdomen pelvis 04/15/2023 FINDINGS: Lower chest: No acute abnormality. Liver: Unremarkable. No focal lesions are seen. Gallbladder and biliary tree: Patient is status post cholecystectomy. No intra- or extrahepatic biliary ductal dilation. Pancreas: Unremarkable, no focal lesions. Spleen: Unremarkable. Adrenals: Unremarkable. Kidneys and ureters: Unremarkable. Bladder: Unremarkable. Reproductive organs: Patient is status post hysterectomy. Bowel: Diverticulosis is seen without evidence of diverticulitis. Lymph nodes Retroperitoneal: Calcification of right sided iliac nodes unchanged from prior exam. No lymphadenopathy. Pelvic: Unremarkable. Mesenteric: Unremarkable. Peritoneum: Normal. Vessels: Unremarkable. Abdominal wall: Unremarkable. Bones: Degenerative changes in the visualized spine. IMPRESSION: No acute abnormalities are seen, in particular no obstructive stones or diverticulitis in this patient with left abdominal and flank pain. ACT 112: Negative or not required by law. Electronically signed by: Andrey Carrasco M.D. 06/25/2023 2:53 PM Duplex Scan Lower Extremity Artery 06/25/23 16:03 US arterial duplex LE CLINICAL HISTORY: bilateral claudication, numbness, pain TECHNIQUE: Real-time grayscale and color and spectral Doppler ultrasound imaging of the bilateral lower extremity arteries was performed. Measurements calculated based on NASCET criteria. COMPARISON: None available at the time of this dictation. FINDINGS: Mild vascular calcifications are seen. Elevated velocities are seen including the following: Right: Posterior tibial artery: monophasic waveforms, maximum velocity 135 cm/s Anterior tibial artery: Biphasic waveforms, maximum velocity 110 cm/s Peroneal artery: Monophasic waveforms, maximal velocity 90 cm/s Dorsalis pedis: Monophasic waveforms, mass velocity 63 cm/s Left: Posterior tibial artery: Monophasic waveforms, maximum velocity 153 cm/s Anterior tibial artery: Monophasic waveforms, maximum velocity 118 cm/s Peroneal artery: Monophasic waveforms, maximum velocity 144 cm/s Dorsalis pedis artery: Monophasic waveforms, maximum velocity 126 cm/s IMPRESSION: Monophasic waveforms with minimally elevated velocities as above. ACT 112: Negative or not required by law. Electronically signed by: Andrey Carrasco M.D. 06/25/2023 6:00 PM Hospital Course (1) Lymphocytosis: (2) History of atrial fibrillation: (3) History of cardioversion: (4) Current use of watermelon inspector anticoagulation: (5) Chest pain: (6) Physical deconditioning: (7) Bilateral lower extremity edema: (8) CHF (congestive heart failure): (9) Acute on chronic heart failure with preserved ejection fraction: Plan Chest Pressure | Atrial Flutter History of paroxysmal atrial fibrillation, presented in atrial flutter and required cardioversion x2. Monitored on telemetry during admission and remained in sinus rhythm afterwards. Chest pain had resolved after cardioversion, minimal troponin elevations. Continue with anticoagulation and rhythm control as per cardiology. Bilateral leg pain Suspect bilateral cramps. Previous diagnosis in 10/2017 without any specific etiology on lumbar spine MRI at that time. Pain has since resolved, arterial ultrasound of lower extremities indicate mild vascular calcifications but no immediate intervention indicated. CHF (congestive heart failure) | Bilateral Lower Extremity Edema Appears euvolemic, minimal elevation of BNP on admission. Suspect majority of LE edema due to venous insufficiency as patient appears euvolemic. At discharge plan to continue her usual Bumex and spironolactone dosing. Follow up with cardiology, heart failure clinic as scheduled. Physical deconditioning Patient able to ambulate around room during rounds on day of discharge. Discussed using walker at home which patient has declined in the past. Patient agreeable to home PT, will have director of casework assist with setting this up. Dementia Continue memantine Total Time Total Time Spent Total Time Spent (In Minutes): .<30 Discharge Plan Discharge Items Patient Disposition: Home - Self-Care Reason For Visit: CHEST PAIN, PAROXSMAL ATRIAL FIBRILLATION Discharge Diagnosis: Atrial Flutter Activity: Per Instructions section Non-emergency contact: Primary Care Provider Call non-emergency contact if: you have any medication questions and your symptoms worsen Follow-up/Referrals: Rica Duron PA-C [Physician Dump Motor Operator] - 07/03/23 11:00 am Diet: Heart Healthy and Low Sodium (2gm) Addtl Attending Provider Instructions: You were admitted to the hospital for chest pain and found to be in atrial flutter. You were treated by "shocking" your heart with cardioversion twice. Afterwards your heart was able to remain in a normal sinus rhythm. We also com pleted an arterial ultrasound of your legs which did show some mild calcifications in the arteries of your legs but no other abnormalities, fortunately your leg pain had resolved on the day of discharge. As we discussed, it will be important that home physical therapy comes to work with you so you can help rebuild your strength. We also recommend that you use your walker at home as this is the best way to keep you safe. A discharge summary will be sent to your primary care physician to ensure continuity of care. Follow-up appointments: We have requested a follow-up appointment with your primary care physician within one week of discharge. Please call their office if you do not hear from them. We will have case management call your daughter to help set up home physical therapy for you Keep all your follow-up appointments as already scheduled. If you cannot make an appointment, notify your provider. Medications: Your medication list has been reviewed and reconciled upon discharge to ensure accuracy and continuity of care. An updated list of all your medications is included with your hospital discharge paperwork. Please review this list closely, no intentional changes were made to your medications during this hospitalization. CALL 911 OR GO TO THE EMERGENCY DEPARTMENT if you experience any of the following: Sudden, severe abdominal pain or nausea/vomiting Severe chest pain, or chest pain that radiates (moves) to your jaw or arm Sudden, severe shortness of breath or difficulty breathing Thank you for allowing us to participate in your care. Pending Studies at Discharge: No Stand-Alone Forms: My [facility], Smoking Cessation Medications and DC Order Prescriptions: Continued nitroglycerin [Nitrostat] 0.4 mg tablet, sublingual 0.4 mg sublingual Q5M PRN (Reason: chest pain) Qty: 20 1RF Rx Instructions: 0.4 mg tablet under tongue every 5 minutes, up to a series of 3 tabs, as needed for chest discomfort. Eliquis 5 mg tablet 5 mg PO BID Qty: 180 3RF pantoprazole 40 mg tablet,delayed release (DR/EC) 40 mg PO DAILYBB Qty: 90 1RF Rx Instructions: 1/2 hour prior to breakfast PO daily; buspirone 5 mg tablet 5 mg PO BID Qty: 90 3RF rosuvastatin [Crestor] 40 mg tablet 40 mg PO HS Qty: 90 3RF amiodarone 200 mg tablet 100 mg PO HS Qty: 45 3RF spironolactone 25 mg tablet 25 mg PO DAILY Qty: 30 2RF Rx Instructions: has not filled yet memantine 10 mg tablet 10 mg PO HS Qty: 30 6RF mirtazapine 30 mg tablet 30 mg PO HS 30 Days Qty: 30 6RF bumetanide 2 mg tablet See Rx Instructions PO QAM MDD May take additional if needed Rx Instructions: Alternate 2 mg and 4 mg po every other day calcium carbonate [Calcium 600] 600 mg calcium (1,500 mg) Tablet 1,200 mg PO QAM cholecalciferol (vitamin D3) [Vitamin D3] 25 mcg (1,000 unit) Capsule 1,000 unit PO QAM docusate sodium 100 mg Capsule 200 mg PO BID acetaminophen 325 mg Tablet 650 mg PO Q4H PRN (Reason: pain) Qty: 60 0RF estradiol 0.075 mg/24 hr patch weekly 0.075 mg transdermal WK Rx Instructions: APPLY 1 PATCH TOPICALLY WEEKLY. CHANGE PATCH ON SUNDAYS cyanocobalamin (vitamin B-12) [Vitamin B-12] 500 mcg Tablet 500 mcg PO QAM ascorbic acid (vitamin C) [Vitamin C] 500 mg Tablet 500 mg PO QAM potassium chloride 20 mEq tablet extended release 40 meq PO QAM Rx Instructions: May take additional 40meq IF additional bumex is taken in the afternoon. fluticasone propionate 50 mcg/actuation spray,suspension 2 spray NA DAILY PRN (Reason: Sinus Symptoms) Saline Mist 0.65 % aerosol,spray 1 spray NA TID PRN (Reason: Congestion) Discharge Orders: Discharge Order (Routine); Ordered 06/26/23 Ordered By: Janett Sánchez Admission Data Admit Date/Time: 06/25/23 17:29 Attending Provider: Ruddy Desir Admit Provider: Jacobo Coffey Primary Care Provider: Sravan Figueroa Other Providers: Jacobo Coffey Other Interventions: Discharge Summary Assessment (RN) Last Done: 06/26/23 15:47 Supervising Physician Co-Signing Physician Notes I personally examined the patient and verified all cramer points of history and exam, discussed case, and agree with decision making with Dr Sánchez Feeling better. No shortness of breath. Notes that she is as stable on her feet as she has been at home recently. Notes that she does have a walker but does not use it, but is willing. Notes she is willing to do outpatient/home PT. Vitals noted, in general she is awake and alert pleasant no distress. HEENT normocephalic atraumatic mucous membranes moist. Breathing unlabored no accessory muscle use good effort. Skin shows no rashes no pallor or icterus. Neuro without focal deficits. Chest pressurea flutter status post cardioversion x 2 now rate controlled regular rhythmvery much wants to go home, had her walk in the room, she has a wide-based but overall steady gait, uses the bed to steady herselfbut has a walker and is willing to use it. Will ask for home therapy to be set up. But otherwise given patient's capacity and desire to go home, I do not particularly see how we would benefit her keeping her in the hospital longer. Close outpatient follow-up.
--- NOTE | 2023-06-26 18:24 | Billing Data ---
Date of Service June 26, 2023 Coding Level of Care Code 36396 IN/OBS DISCH 30 MIN/LESS
--- NOTE | 2023-06-26 18:25 | Billing Data ---
Date of Service June 26, 2023 Coding Level of Care Code 89042 IN/OBS DISCH 30 MIN/LESS
[2023-06-27] MEDS ORDERED: BUMETANIDE 1 MG TAB PO SCH (09:00)
== END 2023-06-26 17:55 | disposition home or self-care (01) ==
LOC: 2E 13:05 → ED 13:05 → 2E 16:45 → SUATTDRO 17:29

== ENCOUNTER 2023-07-13 14:00 | Inpatient (IN) ==
--- NOTE | 2023-07-13 15:31 | Emergency Department Note ---
Impression & Plan Weakness, Near syncope, Acute head trauma, Coagulopathy, Cellulitis ED Provider Note NAME: SPARKLE BROWN AGE: 78 SEX: F : 1945 ARRIVES VIA: Ambulance INFORMANT: [Patient][family] ED PROVIDER(S): [Michael Parks MD] CHIEF COMPLAINT: Fall HISTORY OF PRESENT ILLNESS: The patient is a 78-year-old female who lately has had some pedal edema. She had her diuretic dose increased this past week and it has helped some although, she now has some erythema to the lower legs. The patient states that today, she was in her house walking when everything seemed to go white. She fell and struck her head on a chair. She is on Eliquis. No true loss of consciousness. Since the fall, she has bilateral hip pain, a headache and feels achy across the chest and abdomen. She does not have any pain in the upper extremities. She denies any neck pain. There has been no fever, she has noticed some shortness of breath with exertion lately. No cough or congestion. No recent vomiting although, she has felt some constipation this past week. PMHx/PSHx/Social Hx: See Below PHYSICAL EXAM: GENERAL: Patient is in no acute distress. Fairly thin. HEENT: No acute trauma, normocephalic atraumatic, mucous membranes moist, no nasal congestion. NECK: No stridor, no adenopathy, nontender cervical spine, trachea is midline. LUNGS: Clear to auscultation bilaterally, no wheeze, no rhonchi, breath sounds equal. HEART: Without murmurs gallops or rubs, regular rate and rhythm. ABDOMEN: Soft, nontender, no peritonitis. EXTREMITIES: No cyanosis, patient does have bilateral pedal edema, worse on the left. There is bilateral lower leg erythema with some warmth, worse on the left. NEUROLOGIC: Oriented x 3, no acute motor or sensory deficits, no focal weakness. SKIN: No jaundice, no diaphoresis. DIFFERENTIAL DIAGNOSIS: Intracranial bleeding, skull fracture, C-spine injury, dehydration, electrolyte imbalance, anemia, UTI, cellulitis, among others. EMERGENCY DEPARTMENT PROCEDURES: MEDICAL DECISION MAKING: There is no leukocytosis. A mild anemia was seen. There was a normal platelet count. Creatinine was slightly elevated at 1.37, this is baseline for the patient. There is no electrolyte abnormality in need of emergent correction. Lactic acid level was not elevated making severe sepsis less likely. No concerning liver enzyme elevation. ECG showed a sinus rhythm, no ischemia or dysrhythmia. Cardiac enzyme testing x 1 was not suggestive of acute cardiac injury. Patient appeared to be in a euthyroid state. Urinalysis did not show infection. COVID, influenza and RSV test were negative. Chest film does not show pneumonia or CHF. Pelvis film did not show fracture or dislocation. Brain CT showed no acute bleed or mass effect. C-spine CT showed no acute fracture. On exam, the patient did have a bilateral lower extremity cellulitis which seemed worse on the left. The patient received IV cefepime as antibiotic coverage. She received IV Tylenol for pain. The patient presents with weakness, near syncope and a fall. She had suffered head trauma. Workup does not show any major traumatic findings. She does have a cellulitis on exam and I believe this may have led to her fatigue and weakness and resultant fall. The patient is in need of a hospital stay. She was too weak today to get up on her own after the fall. I did speak with the patient and case management, the on-call hospitalist was consulted. Prior/Outside records/notes reviewed: Today's EMS notes describing her presentation and transport to this hospital. ECG per my interpretation: Indication was fall. The ECG shows a normal sinus rhythm with a rate of 73. There is diffuse nonspecific ST change, there is some baseline artifact. There is no acute ST elevation. No PVCs. The QTc is 473. Continuous Cardiac Monitoring per my interpretation: An order was placed for continuous cardiac monitoring. The monitor shows a rate of 75 with normal sinus rhythm. Imaging/x-ray results per my interpretation: Chest x-ray does not show mediastinal widening, pneumonia or pneumothorax. I see no rib fracture. Pelvis film does not show pelvic or hip fracture. No hip dislocation. Chronic Medical/Social conditions affecting care: Advanced age, chronic anticoagulation. Care/Management discussed with: Case management, the on-call hospitalist. Level of care consideration(s): After review of the information above and other included data: --I believe the patient requires escalation of care to admission DISPOSITION: Admission Past Med/Surg History Medical History Near syncope Cellulitis Shortness of breath Depression with anxiety CHF (congestive heart failure) Afib Bilateral lower extremity edema Chest pain Orthostasis Chronic heart failure with preserved ejection fraction Tremor Hypokalemia Syncope and collapse Open wound of buttock Constipation Nausea & vomiting Vertigo Anemia RECEIVED 2 UNITS [facility] 04/2021 RECENT ADMISSION GI bleed reason for Endoscopy Atypical chest pain Acute hyponatremia CAD (coronary artery disease) Medically managed by cardiology NSTEMI 07/27/20- cath demonstrated small branch vessel disease involving small OM to, not amenable to intervention. Hypercholesterolemia Non-ST elevation MT (NSTEMI) 07/27/20 Sleep apnea CPAP History of paroxysmal supraventricular tachycardia with atrial tachycardia Diastolic CHF Paroxysmal atrial fibrillation Ocular migraine Obstructive sleep apnea Low back pain with sciatica Dyslipidemia Degenerative disc disease Hypertension CD (celiac disease) "Does not" follow gluten-free diet Diverticulitis 2013 Surgical History S/P transesophageal echocardiogram (JOHANA) Status post placement of implantable loop recorder Implanted 12/2019 - Follows Dr. Yoo > to see Dr. Powers this afternoon for check History of cataract surgery R/L History of incision and drainage Right foot History of foot surgery R/L feet "to straighten toes" History of cardioversion x2, most recent 04/2019 History of arthroscopy of right shoulder RCR History of fracture of left shoulder Plate + screws History of carpal tunnel release R/L History of hysterectomy JOANNA + BSO History of total knee replacement Left x2, right x1 History of cholecystectomy History of esophagogastroduodenoscopy (EGD) History of colonoscopy History of tonsillectomy History of cardiac cath 2015, 07/28/20 (ME) > no stents Family History Mother Family hx of colon cancer Colorectal cancer Brother Prostate cancer Family history of diabetes mellitus Father Dissecting aortic aneurysm Myocardial infarction Grandmother (Maternal) Stroke Other No family history of adverse response to anesthesia Denies family history of Ovarian cancer Breast cancer Social History Smoking Status: Former smoker Tobacco Type: Cigarettes Age Started Using Tobacco: 19; Age Quit Using Tobacco: 27; packs per day: 0.25; Second Hand Exposure: No; Do You Dip or Chew Tobacco: No; Hx Alcohol Use: No Hx Substance Use: No Preferred Language: Slovak Communication Ability: Effective Visual Impairment: No Limitations Hearing Ability: Normal 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 Required: No Beliefs That Will Affect Care: None marital status: Current Living Situation: Family Current Living Situation Comment: home with current occupational status: retired Other Information That Helps Us Care for You: 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; 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[employer]; 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 Feels Safe at Home: Yes Safety Concerns: Feels Safe At This Time Childhood Exposure to Second-Hand Smoke: No Dental Care, Regularly: Yes Physical Activity Frequency: 3-4 Times per Week Seatbelt Use: always Sunscreen Use: Yes Assistive Devices: None Allergies Allergies Allergy/AdvReac Type Severity Reaction Status Date / Time Fish Containing Products Allergy Intermediate Vomiting Verified 07/03/23 10:53 gluten Allergy Intermediate Celiac Verified 07/03/23 10:53 disease shellfish derived Allergy Intermediate Vomiting Verified 07/03/23 10:53 latex Allergy Mild Rash Verified 07/03/23 10:53 amoxicillin AdvReac Intermediate Yeast Verified 07/03/23 10:53 infection cefdinir AdvReac Intermediate nausea Verified 07/03/23 10:53 Cephalosporins AdvReac Intermediate Yeast Verified 07/03/23 10:53 infection clavulanic acid AdvReac Intermediate Yeast Verified 07/03/23 10:53 infection prednisone AdvReac Intermediate Anxiety Verified 07/03/23 10:53 Home Meds Home Medications Medication Instructions Recorded Confirmed docusate sodium 100 mg capsule 200 mg PO BID 04/15/18 07/13/23 calcium carbonate (Calcium 600) 1,200 mg PO QAM 06/08/19 07/13/23 cholecalciferol (vitamin D3) 25 1,000 unit PO QAM 06/08/19 07/13/23 mcg (1,000 unit) capsule (Vitamin D3) estradiol 0.075 mg/24 hr weekly 0.075 mg transdermal WK 07/28/22 07/13/23 transdermal patch ascorbic acid (vitamin C) 500 mg 500 mg PO QAM 09/03/22 07/13/23 tablet (Vitamin C) cyanocobalamin (vitamin B-12) 500 500 mcg PO QAM 09/03/22 07/13/23 mcg tablet (Vitamin B-12) fluticasone propionate 50 2 spray NA DAILY PRN Sinus Symptoms 10/27/22 07/13/23 mcg/actuation nasal spray,suspension potassium chloride 20 mEq 40 meq PO QAM 02/03/23 07/13/23 tablet,extended release sodium chloride 0.65 % nasal spray 1 spray NA TID PRN Congestion 04/03/23 07/13/23 aerosol (Saline Mist) bumetanide 2 mg tablet See Rx Instructions PO QAM 06/12/23 07/13/23 Previous Rx's Medication Instructions Recorded nitroglycerin 0.4 mg sublingual 0.4 mg sublingual Q5M PRN chest 09/25/21 tablet (Nitrostat) pain #20 tabs apixaban 5 mg tablet (Eliquis) 5 mg PO BID #180 tabs 04/29/22 acetaminophen 325 mg tablet 650 mg (2 x 325 mg) PO Q4H PRN 05/30/22 pain #60 tabs pantoprazole 40 mg tablet,delayed 40 mg PO DAILYBB #90 tabs 01/06/23 release buspirone 5 mg tablet 5 mg PO BID #90 tabs 02/06/23 rosuvastatin 40 mg tablet (Crestor) 40 mg PO HS #90 tabs 02/06/23 amiodarone 200 mg tablet 100 mg (1/2 x 200 mg) PO HS #45 03/31/23 tabs spironolactone 25 mg tablet 25 mg PO DAILY #30 tabs 05/12/23 memantine 10 mg tablet 10 mg PO HS #30 tabs 06/22/23 mirtazapine 30 mg tablet 30 mg PO HS 30 days #30 tabs 06/22/23 Results & Data (ED) Vital Signs Vital Signs - 24 hr 07/13/23 14:09 07/13/23 14:23 07/13/23 15:00 Temperature 36.6 C Temperature Source Oral Pulse Rate 73 73 59 L Pulse Rate from SpO2 Sensor 59 L Respiratory Rate 22 20 Blood Pressure 121/59 L 115/47 L Blood Pressure Mean 79 69 Pulse Oximetry 100 98 Oxygen Delivery Method Room Air Sepsis Recent Fever Within 48 Hours No Sepsis New/Unexplained Change in Mental Status N/A Sepsis Action Taken by Nursing No Action Required 07/13/23 16:13 07/13/23 17:00 07/13/23 17:21 Temperature Temperature Source Pulse Rate 69 57 L Pulse Rate from SpO2 Sensor 68 60 Respiratory Rate 19 19 Blood Pressure 121/63 100/57 L Blood Pressure Mean 82 71 Pulse Oximetry 100 98 96 Oxygen Delivery Method Room Air Room Air Room Air Sepsis Recent Fever Within 48 Hours Sepsis New/Unexplained Change in Mental Status Sepsis Action Taken by Nursing 07/13/23 18:17 Temperature Temperature Source Pulse Rate 58 L Pulse Rate from SpO2 Sensor Respiratory Rate Blood Pressure Blood Pressure Mean Pulse Oximetry Oxygen Delivery Method Sepsis Recent Fever Within 48 Hours Sepsis New/Unexplained Change in Mental Status Sepsis Action Taken by Detention Medications Current Medication List: was personally reviewed by me Laboratory Data Attestation: I reviewed the patient's lab results. 07/13/23 15:45 07/13/23 15:45 Lab Results 07/13/23 07/13/23 07/13/23 Range/Units 15:20 15:45 15:50 WBC 6.83 (4.8-10.8) K/ul RBC 3.48 L (4.20-5.40) M/uL Hgb 11.2 L (12.0-16.0) g/dl Hct 32.9 L (37.0-47.0) % MCV 94.5 (80.0-100.0) fL MCH 32.2 (25.0-34.0) pg MCHC 34.0 (32.0-36.0) g/dL RDW Std Deviation 46.9 H (36.4-46.3) fL RDW Coeff of Malinda 13.6 (11.5-14.5) % Plt Count 254 (130-400) K/uL MPV 10.7 (9.4-12.4) fL Immature Gran % (Auto) 0.1 % Neut % (Auto) 65.9 % Lymph % (Auto) 24.6 % Conway % (Auto) 8.6 % Eos % (Auto) 0.1 % Baso % (Auto) 0.7 % Neut # (Auto) 4.49 (1.40-6.50) K/uL Lymph # (Auto) 1.68 (1.20-3.40) K/uL Conway # (Auto) 0.59 (0.11-0.59) K/uL Eos # (Auto) 0.01 (0.00-0.50) K/uL Baso # (Auto) 0.05 (0.00-0.20) K/uL Immature Gran # (Auto) 0.01 (0.01-0.20) K/uL ESR 30 (0-30) mm/hr Sodium 139 (136-145) mmol/L Potassium 3.5 (3.5-5.1) mmol/L Chloride 99 (98-107) mmol/L Carbon Dioxide 33 H (21-32) mmol/L Anion Gap 7 (3-11) BUN 28 H (6-23) mg/dl Creatinine 1.37 H (0.6-1.2) mg/dl Est Cr Clr Drug Dosing 32.9 ml/min Est GFR ( Amer) 42.7 ml/min Est GFR (Non-Af Amer) 36.9 ml/min BUN/Creatinine Ratio 20.4 H (10-20) Glucose 90 (70-99(Fasting)) mg/dl Lactate (0.4-2.0) mmol/L Calcium 9.8 (8.6-10.3) mg/dl Magnesium 2.2 (1.7-2.4) mg/dl Total Bilirubin 0.6 (0.2-1.0) mg/dl AST 23 (13-39) U/L ALT 13 (7-52) U/L Alkaline Phosphatase 75 (34-104) U/L Troponin I High Sens 11.0 (0-14) pg/ml C-Reactive Protein < 0.50 (0-0.5) mg/dl Total Protein 7.8 (6.0-8.3) gm/dl Albumin 4.4 (3.4-5.0) gm/dl Globulin 3.4 (2.5-4.0) gm/dl Albumin/Globulin Ratio 1.3 (0.9-2) TSH 1.835 (0.300-4.500) uIu/ml Urine Color Yellow Urine Appearance Clear (Clear) Urine pH 8.0 H (4.5-7.5) Ur Specific [place] 1.006 (1.000-1.030) Urine Protein Negative (Negative) Urine Glucose (UA) Negative (Negative) Urine Ketones Negative (Negative) Urine Blood Negative (Negative) Urine Nitrite Negative (Negative) Urine Bilirubin Negative (Negative) Urine Urobilinogen Negative (Negative) Ur Leukocyte Esterase Negative (Negative) SARS-CoV-2 (PCR) NEGATIVE (Negative) Influenza Type A (PCR) Negative (Neg) Influenza Type B (PCR) Negative (Neg) RSV (RT-PCR) Negative (Neg) 07/13/23 Range/Units 17:02 WBC (4.8-10.8) K/ul RBC (4.20-5.40) M/uL Hgb (12.0-16.0) g/dl Hct (37.0-47.0) % MCV (80.0-100.0) fL MCH (25.0-34.0) pg MCHC (32.0-36.0) g/dL RDW Std Deviation (36.4-46.3) fL RDW Coeff of Malinda (11.5-14.5) % Plt Count (130-400) K/uL MPV (9.4-12.4) fL Immature Gran % (Auto) % Neut % (Auto) % Lymph % (Auto) % Conway % (Auto) % Eos % (Auto) % Baso % (Auto) % Neut # (Auto) (1.40-6.50) K/uL Lymph # (Auto) (1.20-3.40) K/uL [place] # (Auto) (0.11-0.59) K/uL Eos # (Auto) (0.00-0.50) K/uL Baso # (Auto) (0.00-0.20) K/uL Immature Gran # (Auto) (0.01-0.20) K/uL ESR (0-30) mm/hr Sodium (136-145) mmol/L Potassium (3.5-5.1) mmol/L Chloride (98-107) mmol/L Carbon Dioxide (21-32) mmol/L Anion Gap (3-11) BUN (6-23) mg/dl Creatinine (0.6-1.2) mg/dl Est Cr Clr Drug Dosing ml/min Est GFR ( Amer) ml/min Est GFR (Non-Af Amer) ml/min BUN/Creatinine Ratio (10-20) Glucose (70-99(Fasting)) mg/dl Lactate 0.6 (0.4-2.0) mmol/L Calcium (8.6-10.3) mg/dl Magnesium (1.7-2.4) mg/dl Total Bilirubin (0.2-1.0) mg/dl AST (13-39) U/L ALT (7-52) U/L Alkaline Phosphatase (34-104) U/L Troponin I High Sens (0-14) pg/ml C-Reactive Protein (0-0.5) mg/dl Total Protein (6.0-8.3) gm/dl Albumin (3.4-5.0) gm/dl Globulin (2.5-4.0) gm/dl Albumin/Globulin Ratio (0.9-2) TSH (0.300-4.500) uIu/ml Urine Color Urine Appearance (Clear) Urine pH (4.5-7.5) Ur Specific [place] (1.000-1.030) Urine Protein (Negative) Urine Glucose (UA) (Negative) Urine Ketones (Negative) Urine Blood (Negative) Urine Nitrite (Negative) Urine Bilirubin (Negative) Urine Urobilinogen (Negative) Ur Leukocyte Esterase (Negative) SARS-CoV-2 (PCR) (Negative) Influenza Type A (PCR) (Neg) Influenza Type B (PCR) (Neg) RSV (RT-PCR) (Neg) Administered Medications Discontinued Medications Acetaminophen (Acetaminophen 500 Mg Tab) 500 mg PO NOW STA Stop: 07/13/23 19:27 Last Admin: 07/13/23 19:45 Dose: 500 mg Documented By: KATARINA Acetaminophen (Ofirmev) 1,000 mg in 100 mls @ 400 mls/hr IV NOW STA Stop: 07/13/23 15:37 Last Infusion: 07/13/23 16:06 Dose: Infused Documented By: Admin: 07/13/23 15:51 Dose: 400 mls/hr Documented By: LARS Cefepime HCl (Maxipime) 2,000 mg in 20 mls @ 5 mls/min IV NOW STA; Protocol Stop: 07/13/23 15:28 Last Admin: 07/13/23 16:13 Dose: 5 mls/min Documented By: SOPHY Lactated Ringer's (Lr) 250 mls @ 999 mls/hr IV .Q16M ONE Stop: 07/13/23 19:10 Last Infusion: 07/13/23 19:43 Dose: Infused Documented By: Admin: 07/13/23 19:15 Dose: 999 mls/hr Documented By: EASTONS Imaging Data Radiologist's Impression: Cervical Spine CT 07/13/23 15:[address] DOSE: HISTORY: fall TECHNIQUE: Multiaxial CT images of the cervical spine were performed and reformatted in the sagittal and coronal plane without the use of contrast. A dose lowering technique was utilized adhering to the principles of ALARA. COMPARISON: Cervical spine CT 05/11/2023. FINDINGS: No fractures. No subluxation. Prevertebral soft tissues and the C1-C2 interval are intact. No pneumothorax. IMPRESSION: No fractures within the cervical spine. ACT 112: Negative or not required by law. Electronically signed by: Cameron Ruiz M.D. 07/13/2023 4:22 PM Pelvis X-Ray 07/13/23 15:23 XR pelvis 1-2V routine CLINICAL HISTORY: hip pain COMPARISON STUDY: Left hip 10/03/2017. FINDINGS: No fracture or dislocation within the pelvis or hips. The sacrum appears intact. Mild degenerative changes within the bilateral hips. Stable 18 mm lucent lesion within the left femoral neck. This is likely benign. Surgical clips within the right midabdomen. IMPRESSION: No fracture or dislocation within the pelvis or hips. ACT 112: Negative or not required by law. Electronically signed by: Cameron Ruiz M.D. 07/13/2023 3:58 PM Chest X-Ray 07/13/23 15:24 XR chest 1V portable HISTORY: 78 years-old Female weakness COMPARISON: 06/25/2023 TECHNIQUE: AP view of the chest FINDINGS: Cardiac silhouette is normal in size. Cardiac loop recorder device. No pneumothorax, pleural effusion, airspace consolidation or pulmonary edema. Left proximal humeral ORIF hardware. Degenerative changes of the shoulders and spine. IMPRESSION: No acute process ACT 112: Negative or not required by law. The above report was generated using voice recognition software. It may contain grammatical, syntax or spelling errors. Electronically signed by: Antony Miller M.D. 07/13/2023 3:[address] 07/13/23 15:24 CT head/brain wo con CLINICAL HISTORY: 78 years-old Female with fall, hit head. Acute head trauma status post fall TECHNIQUE: Multiple axial CT images of the head were obtained without contrast. A dose lowering technique was utilized adhering to the principles of ALARA. CT DOSE: 932.06 mGy.cm COMPARISON: 05/11/2023 FINDINGS: No acute intracranial hemorrhage, midline shift, intracranial mass, hydrocephalus, territorial ischemia or abnormal extra-axial collection. Involutional changes with chronic microvascular ischemic disease. Unchanged asymmetric dilation of the right lateral ventricle. The calvarium is intact. Prior bilateral lens repair. Trace mastoid effusions. The paranasal sinuses are clear. IMPRESSION: No acute intracranial abnormality or calvarial fracture. ACT 112: Negative or not required by law. The above report was generated using voice recognition software. It may contain grammatical, syntax or spelling errors. Electronically signed by: Antony Miller M.D. 07/13/2023 4:19 PM Discharge Plan Visit Data Chief Complaint: Fall Stated Complaint: FALL ED Provider: Michael Parks Discharge Problem: Weakness, Near syncope, Acute head trauma, Coagulopathy, Cellulitis Patient Disposition: Admitted As Inpatient Condition: Fair Discharge Instructions Interventions: ED Discharge Assessment Last Done: 07/13/23 20:03 Discharge Problem: Acute head trauma Qualifiers: Encounter type: initial encounter Qualified Code(s): S09.90XA - Unspecified injury of head, initial encounter Cellulitis Qualifiers: Site of cellulitis: extremity Site of cellulitis of extremity: lower extremity Laterality: unspecified laterality Qualified Code(s): L03.119 - Cellulitis of unspecified part of limb
[2023-07-13] MEDS: ACETAMINOPHEN 1,000 MG/100 ML VIAL IV STA (15:51)
--- NOTE | 2023-07-13 15:55 | XRay Report ---
XR chest 1V portable HISTORY: 78 years-old Female weakness COMPARISON: 06/25/2023 TECHNIQUE: AP view of the chest FINDINGS: Cardiac silhouette is normal in size. Cardiac loop recorder device. No pneumothorax, pleural effusion , airspace consolidation or pulmonary edema. Left proximal humeral ORIF hardware. Degenerative change s of the shoulders and spine. IMPRESSION: No acute process ACT 112: Negative or not required by law. The above report was generated using voice recognition software. It may contain grammatical, syntax o r spelling errors. Electronically signed by: Antony Miller M.D. 07/13/2023 3:53 PM
[2023-07-13 15:56] LABS: Appearance Urine Clear (Clear); Bilirubin Urine Negative (Negative); Blood Urine Negative (Negative); Color Urine Yellow; Glucose Urine UA Negative (Negative); Ketones Urine Negative (Negative); Leukocyte Esterase Urine Negative (Negative); Nitrite Urine Negative (Negative); Protein Urine Negative (Negative); Specific Gravity Urine 1.006 (1.000-1.030); Urobilinogen Urine Negative (Negative)
--- NOTE | 2023-07-13 16:00 | XRay Report ---
XR pelvis 1-2V routine CLINICAL HISTORY: hip pain COMPARISON STUDY: Left hip 10/03/2017. FINDINGS: No fracture or dislocation within the pelvis or hips. The sacrum appears intact. Mild degen erative changes within the bilateral hips. Stable 18 mm lucent lesion within the left femoral neck. T his is likely benign. Surgical clips within the right midabdomen. IMPRESSION: No fracture or dislocation within the pelvis or hips. ACT 112: Negative or not required by law. Electronically signed by: Cameron Ruiz M.D. 07/13/2023 3:58 PM
[2023-07-13] MEDS: CEFEPIME 2,000 MG/20 ML VIAL IV STA (16:13)
[2023-07-13 16:14] LABS: Basophils # (auto) 0.05 K/uL (0.00-0.20); Basophils % (auto) 0.7 %; Eosinophils # (auto) 0.01 K/uL (0.00-0.50); Eosinophils % (auto) 0.1 %; Hematocrit (blood only) 32.9 % (37.0-47.0); Hemoglobin 11.2 g/dl (12.0-16.0); Immature Granulocytes # (auto) 0.01 K/uL (0.01-0.20); Immature Granulocytes % (auto) 0.1 %; Lymphocytes # (auto) 1.68 K/uL (1.20-3.40); Lymphocytes % (auto) 24.6 %; Mean Corpuscular Hemoglobin 32.2 pg (25.0-34.0); Mean Corpuscular Volume 94.5 fL (80.0-100.0); Mean Platelet Volume 10.7 fL (9.4-12.4); Monocytes # (auto) 0.59 K/uL (0.11-0.59); Monocytes % (auto) 8.6 %; Neutrophils # (auto) 4.49 K/uL (1.40-6.50); Neutrophils % (auto) 65.9 %; Platelet Count 254 K/uL (130-400); RDW Coefficient of Variation 13.6 % (11.5-14.5); RDW Standard Deviation 46.9 fL (36.4-46.3); Red Blood Count 3.48 M/uL (4.20-5.40); White Blood Count 6.83 K/ul (4.8-10.8)
--- NOTE | 2023-07-13 16:21 | CT Scan Report ---
CT head/brain wo con CLINICAL HISTORY: 78 years-old Female with fall, hit head. Acute head trauma status post fall TECHNIQUE: Multiple axial CT images of the head were obtained without contrast. A dose lowering tech nique was utilized adhering to the principles of ALARA. CT DOSE: 932.06 mGy.cm COMPARISON: 05/11/2023 FINDINGS: No acute intracranial hemorrhage, midline shift, intracranial mass, hydrocephalus, territorial ischem ia or abnormal extra-axial collection. Involutional changes with chronic microvascular ischemic disea se. Unchanged asymmetric dilation of the right lateral ventricle. The calvarium is intact. Prior bilateral lens repair. Trace mastoid effusions. The paranasal sinuses are clear. IMPRESSION: No acute intracranial abnormality or calvarial fracture. ACT 112: Negative or not required by law. The above report was generated using voice recognition software. It may contain grammatical, syntax o r spelling errors. Electronically signed by: Antony Miller M.D. 07/13/2023 4:19 PM
--- NOTE | 2023-07-13 16:24 | CT Scan Report ---
CERVICAL SPINE CT CT DOSE: HISTORY: fall TECHNIQUE: Multiaxial CT images of the cervical spine were performed and reformatted in the sagittal and coronal plane without the use of contrast. A dose lowering technique was utilized adhering to th e principles of ALARA. COMPARISON: Cervical spine CT 05/11/2023. FINDINGS: No fractures. No subluxation. Prevertebral soft tissues and the C1-C2 interval are intact. No pneumothorax. IMPRESSION: No fractures within the cervical spine. ACT 112: Negative or not required by law. Electronically signed by: Cameron Ruiz M.D. 07/13/2023 4:22 PM
[2023-07-13 16:32] LABS: Alanine Aminotransferase 13 U/L (7-52); Albumin Globulin Ratio 1.3 (0.9-2); Albumin Level 4.4 gm/dl (3.4-5.0); Alkaline Phosphatase 75 U/L (34-104); Anion Gap 7 (3-11); Aspartate Aminotransferase 23 U/L (13-39); BUN Creatinine Ratio 20.4 (10-20); Bilirubin,Total 0.6 mg/dl (0.2-1.0); Blood Urea Nitrogen 28 mg/dl (6-23); Calcium 9.8 mg/dl (8.6-10.3); Carbon Dioxide 33 mmol/L (21-32); Chloride 99 mmol/L (98-107); Creatinine Clr Calc Pharmacy 32.9 ml/min; Est GFR (African American) 42.7 ml/min; Est GFR (Non-African American) 36.9 ml/min; Globulin 3.4 gm/dl (2.5-4.0); Glucose 90 mg/dl (70-99(Fasting)); Magnesium 2.2 mg/dl (1.7-2.4); Potassium 3.5 mmol/L (3.5-5.1); Sodium 139 mmol/L (136-145); Total Protein 7.8 gm/dl (6.0-8.3)
[2023-07-13 16:36] LABS: Influenza A virus by PCR Negative (Neg); Influenza B virus by PCR Negative (Neg); RSV by PCR Negative (Neg); SARS CoV2 RNA(COVID-19) Ceph NEGATIVE (Negative)
[2023-07-13 16:48] LABS: Thyroid Stimulating Hormone 1.835 uIu/ml (0.300-4.500)
--- NOTE | 2023-07-13 18:16 | History & Physical Report ---
Date of Service July 13, 2023 Assessment & Plan (1) Fall: Plan: Ground level fall on 07/12; struck head; on Eliquis; no LOC Patient denies dizziness or lightheadedness prior to falling, but reports she saw a "white light" and went down Patient has been taking additional Bumex this past week due to her leg swelling Head CT with no acute intercranial hemorrhage, midline shift, fracture, or abnormality Pelvic CT showed no acute fx or dislocation Cervical spine CT showed no acute fx BUN/creatinine elevated at 20.4 Suspect potential overdiuresis this week, which may have contributed to fall Hx of orthostasis with overdiuresis (may have caused fall in October 2022) Fall precautions Acetaminophen as needed for pain PT/OT consulted A.m. CBC, BMP, CRP (2) CHF (congestive heart failure): Plan: Last echo revealed LVEF at 60 to 65% CXR without pulmonary edema Daily weights Strict I&O monitoring AHA, low salt diet Hold Bumex, spironolactone, K supplementation for now (3) Hypotension: Plan: BP dipped to 91/51 in the ED Will trial small boluses of LR 250mL x 2 and see if BP improves LR 500mL at 80mL/hr overnight Hold diuretics (as above) (4) Lower extremity cellulitis: Plan: Lower extremities (especially RLE) exhibit erythematous and warmth to touch Low suspicion for DVT given bilateral and on Eliquis B/L LE cellulitis v. venous stasis dermatitis No leukocytosis; afebrile CRP and ESR WNL Lactate WNL Blood culture ordered, pending Cefepime 2000 mg IV q12h (5) History of atrial fibrillation: Plan: Rate controlled at present Continue amiodarone Note: PM dose of Eliquis given on 07/[address] was negative, will retime Eliquis to start 07/13 at 9 PM in the setting of acute head injury Neuro-checks q4h overnight Strict bedrest overnight for 07/12 and reassess in the AM (6) Anemia: Plan: Hgb 11.2 on arrival Follow a.m. labs (7) Bilateral lower extremity edema: Plan: Recommend TEDs or compression wrap as tolerated once cellulitis subsides (8) Near syncope: (9) Current use of [employer] anticoagulation: Plan Disposition: Admit to MedSurg Telemetry DNR/DNI AHA, Low Sodium diet VTE PPx: On Eliquis (unlikely to tolerate mechanical DVT ppx given swelling/erythema) History of Present Illness Chief Complaint: Lower extremity swelling/redness, fall Primary Care Provider: Sravan Figueroa MD Ximena is a 78-year-old female with PMH of CHF, CAD, PAF, A-fib (on Eliquis), depression with anxiety, and sleep apnea. She presented via EMS for a ground- level fall on 07/12. Patient reports that she was walking in her kitchen around 12 PM, and started to feel like she was going to pass out. She then saw a "white light" and fell and struck her rocking chair. Struck right forehead and right ear. No LOC. Patient had difficulty getting up by herself, but was able to call for help using her cell phone. Patient reports that she has been having increased leg swelling and fatigue x 3 days. Patient's daughter (at bedside) helps to manage medications, and reports that the patient took her regular morning medicine today. Last took Eliquis this morning. Of note, the patient was told to take Bumex 2 mg x 2 tablets over the past couple days to assist with the additional leg swelling; she only took 1 tablet this morning. Patient's daughter has been wrapping her mother's legs with Omar bandages instead of compression stockings due to the increased swelling. Patient follows with heart failure clinic. She endorses 8/10 pain in her right forehead at present. She also endorses intermittent pain in her lower extremities bilaterally. She denies smoking, tobacco use, and alcohol use. She denies prior hx of stroke. Patient is hypotensive at 100/57 at time of admission. ED course: Cefepime 2000 mg IV Acetaminophen 1000 mg IV ROS: Patient endorses increased fatigue, fall, weight gain, HILL, right forehead pain, chest pressure when walking, constipation, and leg swelling/erythema/pain. Patient denies fever, chills, dizziness/lightheadedness, changes in vision, facial droop, slurred speech, chest pain, SOB, LEAHY, cough, chest palpitations, abdominal pain, Allergies Allergy/AdvReac Type Severity Reaction Status Date / Time Fish Containing Products Allergy Intermediate Vomiting Verified 07/03/23 10:53 gluten Allergy Intermediate Celiac Verified 07/03/23 10:53 disease shellfish derived Allergy Intermediate Vomiting Verified 07/03/23 10:53 latex Allergy Mild Rash Verified 07/03/23 10:53 amoxicillin AdvReac Intermediate Yeast Verified 07/03/23 10:53 infection cefdinir AdvReac Intermediate nausea Verified 07/03/23 10:53 Cephalosporins AdvReac Intermediate Yeast Verified 07/03/23 10:53 infection clavulanic acid AdvReac Intermediate Yeast Verified 07/03/23 10:53 infection prednisone AdvReac Intermediate Anxiety Verified 07/03/23 10:53 Home Medications Medication Instructions Recorded Confirmed Type docusate sodium 100 mg capsule 200 mg PO BID 04/15/18 07/13/23 History calcium carbonate (Calcium 600) 1,200 mg PO QAM 06/08/19 07/13/23 History cholecalciferol (vitamin D3) 25 1,000 unit PO QAM 06/08/19 07/13/23 History mcg (1,000 unit) capsule (Vitamin D3) nitroglycerin 0.4 mg sublingual 0.4 mg sublingual Q5M PRN chest 09/25/21 07/13/23 Rx tablet (Nitrostat) pain #20 tabs apixaban 5 mg tablet (Eliquis) 5 mg PO BID #180 tabs 04/29/22 07/13/23 Rx acetaminophen 325 mg tablet 650 mg (2 x 325 mg) PO Q4H PRN 05/30/22 07/13/23 Rx pain #60 tabs estradiol 0.075 mg/24 hr weekly 0.075 mg transdermal WK 07/28/22 07/13/23 H istory transdermal patch ascorbic acid (vitamin C) 500 mg 500 mg PO QAM 09/03/22 07/13/23 History tablet (Vitamin C) cyanocobalamin (vitamin B-12) 500 500 mcg PO QAM 09/03/22 07/13/23 History mcg tablet (Vitamin B-12) fluticasone propionate 50 2 spray NA DAILY PRN Sinus Symptoms 10/27/22 07/13/23 History mcg/actuation nasal spray,suspension pantoprazole 40 mg tablet,delayed 40 mg PO DAILYBB #90 tabs 01/06/23 07/13/23 Rx release potassium chloride 20 mEq 40 meq PO QAM 02/03/23 07/13/23 History tablet,extended release buspirone 5 mg tablet 5 mg PO BID #90 tabs 02/06/23 07/13/23 Rx rosuvastatin 40 mg tablet (Crestor) 40 mg PO HS #90 tabs 02/06/23 07/13/23 Rx amiodarone 200 mg tablet 100 mg (1/2 x 200 mg) PO HS #45 03/31/23 07/13/23 Rx tabs sodium chloride 0.65 % nasal spray 1 spray NA TID PRN Congestion 04/03/23 07/13/23 History aerosol (Saline Mist) spironolactone 25 mg tablet 25 mg PO DAILY #30 tabs 05/12/23 07/13/23 Rx bumetanide 2 mg tablet See Rx Instructions PO QAM 06/12/23 07/13/23 History memantine 10 mg tablet 10 mg PO HS #30 tabs 06/22/23 07/13/23 Rx mirtazapine 30 mg tablet 30 mg PO HS 30 days #30 tabs 06/22/23 07/13/23 Rx Past Med/Surg History Medical History Near syncope Cellulitis Shortness of breath Depression with anxiety CHF (congestive heart failure) Afib Bilateral lower extremity edema Chest pain Orthostasis Chronic heart failure with preserved ejection fraction Tremor Hypokalemia Syncope and collapse Open wound of buttock Constipation Nausea & vomiting Vertigo Anemia RECEIVED 2 UNITS [facility] 04/2021 RECENT ADMISSION GI bleed reason for Endoscopy Atypical chest pain Acute hyponatremia CAD (coronary artery disease) Medically managed by cardiology NSTEMI 07/27/20- cath demonstrated small branch vessel disease involving small OM to, not amenable to intervention. Hypercholesterolemia Non-ST elevation HI (NSTEMI) 07/27/20 Sleep apnea CPAP History of paroxysmal supraventricular tachycardia with atrial tachycardia Diastolic CHF Paroxysmal atrial fibrillation Ocular migraine Obstructive sleep apnea Low back pain with sciatica Dyslipidemia Degenerative disc disease Hypertension CD (celiac disease) "Does not" follow gluten-free diet Diverticulitis 2013 Surgical History S/P transesophageal echocardiogram (JOHANA) Status post placement of implantable loop recorder Implanted 12/2019 - Follows Dr. Yoo > to see Dr. Powers this afternoon for check History of cataract surgery R/L History of incision and drainage Right foot History of foot surgery R/L feet "to straighten toes" History of cardioversion x2, most recent 04/2019 History of arthroscopy of right shoulder RCR History of fracture of left shoulder Plate + screws History of carpal tunnel release R/L History of hysterectomy JOANNA + BSO History of total knee replacement Left x2, right x1 History of cholecystectomy History of esophagogastroduodenoscopy (EGD) History of colonoscopy History of tonsillectomy History of cardiac cath 2015, 07/28/20 ([place]) > no stents Family History Mother Family hx of colon cancer Colorectal cancer Brother Prostate cancer Family history of diabetes mellitus Father Dissecting aortic aneurysm Myocardial infarction Grandmother (Maternal) Stroke Other No family history of adverse response to anesthesia Denies family history of Ovarian cancer Breast cancer Social History Smoking Status: Former smoker Tobacco Type: Cigarettes Age Started Using Tobacco: 19; Age Quit Using Tobacco: 27; packs per day: 0.25; Second Hand Exposure: No; Do You Dip or Chew Tobacco: No; Hx Alcohol Use: No Hx Substance Use: No Preferred Language: Turkish Communication Ability: Effective Visual Impairment: No Limitations Hearing Ability: Normal Arts Administrator Or Manager Required: No Beliefs That Will Affect Care: None marital status: Current Living Situation: Family Current Living Situation Comment: home with current occupational status: retired Other Information That Helps Us Care for You: 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; 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[employer]; 3 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 Feels Safe at Home: Yes Safety Concerns: Feels Safe At This Time Childhood Exposure to Second-Hand Smoke: No Dental Care, Regularly: Yes Physical Activity Frequency: 3-4 Times per Week Seatbelt Use: always Sunscreen Use: Yes Assistive Devices: None Review of Systems Review of Systems: See HPI above Physical Exam Physical Exam: General: lethargic; some physical distress secondary to forehead and leg pain; non-toxic appearing; cooperative HEENT: small, brown contusion above the right eyebrow; no scleral icterus; PERRLA; vision and hearing intact Neck: supple; trachea midline Skin: warm, dry without signs of tenting; no cyanosis; no rashes, bruising, lesions, or erythema noted CV: chest wall NTP; RRR; S1/S2 normal; no murmurs/rubs/gallops; pulses intact and symmetric at radial, DP, and PT Lungs: no acute respiratory distress; symmetrical chest wall expansion; clear breath sounds across all lung lala w/o adventitious sounds; no wheezing ABD: Soft, NTP; BS present; no rebound/guarding; no distention MSK: no tics or fasciculations LEs: +2 pitting edema in the lower extremities b/l; erythematous and warm to touch (right worse than left) Neuro: A&Ox3; normal mood and affect; fluent speech; no facial droop; no focal deficits; sensation intact in the LEs b/l Results & Data Results & Data Vital Signs (Past 12 Hours) Vital Signs Temp Pulse Resp BP Pulse Ox O2 Del Method 07/13/23 17:21 96 Room Air 07/13/23 17:00 57 L 19 100/57 L 98 Room Air 07/13/23 16:13 69 19 121/63 100 Room Air 07/13/23 15:00 59 L 20 115/47 L 98 Room Air 07/13/23 14:23 73 07/13/23 14:09 36.6 C 73 22 121/59 L 100 Laboratory Results Abnormal lab results 07/13/23 07/13/23 Range/Units 15:20 15:45 RBC 3.48 L (4.20-5.40) M/uL Hgb 11.2 L (12.0-16.0) g/dl Hct 32.9 L (37.0-47.0) % RDW Std Deviation 46.9 H (36.4-46.3) fL Carbon Dioxide 33 H (21-32) mmol/L BUN 28 H (6-23) mg/dl Creatinine 1.37 H (0.6-1.2) mg/dl BUN/Creatinine Ratio 20.4 H (10-20) Urine pH 8.0 H (4.5-7.5) Diagnostic Findings Cervical Spine CT 07/13/23 15:[address] DOSE: HISTORY: fall TECHNIQUE: Multiaxial CT images of the cervical spine were performed and reformatted in the sagittal and coronal plane without the use of contrast. A dose lowering technique was utilized adhering to the principles of ALARA. COMPARISON: Cervical spine CT 05/11/2023. FINDINGS: No fractures. No subluxation. Prevertebral soft tissues and the C1-C2 interval are intact. No pneumothorax. IMPRESSION: No fractures within the cervical spine. ACT 112: Negative or not required by law. Electronically signed by: Cameron Ruiz M.D. 07/13/2023 4:22 PM Pelvis X-Ray 07/13/23 15:23 XR pelvis 1-2V routine CLINICAL HISTORY: hip pain COMPARISON STUDY: Left hip 10/03/2017. FINDINGS: No fracture or dislocation within the pelvis or hips. The sacrum appears intact. Mild degenerative changes within the bilateral hips. Stable 18 mm lucent lesion within the left femoral neck. This is likely benign. Surgical clips within the right midabdomen. IMPRESSION: No fracture or dislocation within the pelvis or hips. ACT 112: Negative or not required by law. Electronically signed by: Cameron Ruiz M.D. 07/13/2023 3:58 PM Chest X-Ray 07/13/23 15:24 XR chest 1V portable HISTORY: 78 years-old Female weakness COMPARISON: 06/25/2023 TECHNIQUE: AP view of the chest FINDINGS: Cardiac silhouette is normal in size. Cardiac loop recorder device. No pneumothorax, pleural effusion, airspace consolidation or pulmonary edema. Left proximal humeral ORIF hardware. Degenerative changes of the shoulders and spine. IMPRESSION: No acute process ACT 112: Negative or not required by law. The above report was generated using voice recognition software. It may contain grammatical, syntax or spelling errors. Electronically signed by: Antony Miller M.D. 07/13/2023 3:[address] 07/13/23 15:24 CT head/brain wo con CLINICAL HISTORY: 78 years-old Female with fall, hit head. Acute head trauma status post fall TECHNIQUE: Multiple axial CT images of the head were obtained without contrast. A dose lowering technique was utilized adhering to the principles of ALARA. CT DOSE: 932.06 mGy.cm COMPARISON: 05/11/2023 FINDINGS: No acute intracranial hemorrhage, midline shift, intracranial mass, h ydrocephalus, territorial ischemia or abnormal extra-axial collection. Involutional changes with chronic microvascular ischemic disease. Unchanged asymmetric dilation of the right lateral ventricle. The calvarium is intact. Prior bilateral lens repair. Trace mastoid effusions. The paranasal sinuses are clear. IMPRESSION: No acute intracranial abnormality or calvarial fracture. ACT 112: Negative or not required by law. The above report was generated using voice recognition software. It may contain grammatical, syntax or spelling errors. Electronically signed by: Antony Miller M.D. 07/13/2023 4:19 PM ECG Additional Comments: ECG revealed NSR at 73 bpm; QTc 473 Code Status & VTE Plan Code Status DNR/DNI VTE Prophylaxis Plan VTE Prophylaxis will be ordered: Yes Supervising Physician Co-Signing Physician Notes Patient seen and examined, chart reviewed, case discussed with Cameron Paul and I agree with the assessment and plan as above except as otherwise noted Labs and images reviewed 78-year-old female with history of heart failure, CAD, A-fib on Eliquis presents with a presyncopal episode although she did not complete lose consciousness, and weakness. She has had increased leg swelling around 3 days, and in the last day has had sudden increase in warmth, tenderness, and bright red erythema most prominent on the right medial ankle. Given that the right medial ankle is asymmetrically warm, and acutely erythematous/tender and patient has had some feeling of chills reasonable to treat as cellulitis although venous stasis dermatitis is within the differential. She has been taking her diuretics with poor p.o. intake, has no pulmonary edema and while she appears to have lower extremity edema has dry mucous membranes and is mildly hypotensive but fluid responsive. She is laying flat comfortably while receiving fluids with no orthopnea. Mild ASTRID is present. Agree with small fluid boluses as above discontinue if show signs of pulmonary edema. Recommended maximizing venous stasis mobilization strategies including compression, wraps and elevation once she is able to tolerate this. Agree with assessment and management above. PG Care Time/CCT Total # of Minutes Spent Total Time Spent with Patient: Total time spent is greater than 50% in coordination of care (as documented) at patient's floor/unit and/or counseling patient: C[place] [address] INT INP/OBS CARE 2/55MIN Patient Type Established History Comprehensive Exam Comprehensive Medical Decision Making Moderate Complexity Diagnoses Fall W19.XXXA Encounter type: initial encounter CHF (congestive heart failure) I50.9 Hypotension I95.9 Lower extremity cellulitis L03.119 History of atrial fibrillation Z86.79 Anemia D64.9 Bilateral lower extremity edema R60.0 Near syncope R55 Current use of [employer] anticoagulation Z79.01 (1) Fall Encounter type: initial encounter Qualified Code(s): W19.XXXA - Unspecified fall, initial encounter
[2023-07-13] MEDS: LACTATED RINGER'S 250 ML IV ONE ×2 (19:15→22:37)
[2023-07-13 19:32] LABS: C Reactive Protein < 0.50 mg/dl (0-0.5)
[2023-07-13] MEDS: ACETAMINOPHEN 500 MG TAB PO STA (19:45)
[2023-07-13] MEDS ORDERED: FLUTICASONE PROPIONATE NA SPR 16 GM BTL PRN (20:39)
[2023-07-13] MEDS ORDERED: ONDANSETRON INJ 2 MG/ML 2 ML VIAL IV PRN (20:39)
[2023-07-13] MEDS: POTASSIUM CHLORIDE / WTR 10 MEQ/100 ML PLCT IV ONE (21:36)
[2023-07-13] MEDS: MIRTAZAPINE TAB 15 MG TAB PO SCH (21:43)
[2023-07-13] MEDS: POTASSIUM CHLORIDE CRTAB 20 MEQ TABCR PO ONE (21:44)
[2023-07-13] MEDS: AMIODARONE 200 MG TAB PO SCH (21:44)
[2023-07-13] MEDS: busPIRone 5 MG TAB PO SCH (21:44)
[2023-07-13] MEDS: APIXABAN 5 MG TABLET PO SCH (21:44)
[2023-07-13] MEDS: MEMANTINE HCL 10 MG TAB PO SCH (21:44)
[2023-07-13] MEDS: DOCUSATE SODIUM 100 MG CAP PO SCH (21:44)
[2023-07-13] MEDS: LACTATED RINGER'S 500 ML IV SCH (23:17)
[2023-07-14] MEDS: CEFEPIME 2,000 MG in SYRINGE 0 ML IV SCH (04:32)
[2023-07-14] MEDS: PANTOprazole 40 MG TAB PO SCH (04:53)
[2023-07-14 06:33] LABS: Basophils # (auto) 0.05 K/uL (0.00-0.20); Basophils % (auto) 0.9 %; Eosinophils # (auto) 0.08 K/uL (0.00-0.50); Eosinophils % (auto) 1.4 %; Hematocrit (blood only) 26.8 % (37.0-47.0); Hemoglobin 9.3 g/dl (12.0-16.0); Immature Granulocytes # (auto) 0.01 K/uL (0.01-0.20); Immature Granulocytes % (auto) 0.2 %; Lymphocytes # (auto) 1.81 K/uL (1.20-3.40); Lymphocytes % (auto) 31.9 %; Mean Corpuscular Hemoglobin 32.3 pg (25.0-34.0); Mean Corpuscular Hgb Conc 34.7 g/dL (32.0-36.0); Mean Corpuscular Volume 93.1 fL (80.0-100.0); Mean Platelet Volume 10.9 fL (9.4-12.4); Monocytes # (auto) 0.73 K/uL (0.11-0.59); Monocytes % (auto) 12.9 %; Neutrophils # (auto) 2.99 K/uL (1.40-6.50); Neutrophils % (auto) 52.7 %; Platelet Count 208 K/uL (130-400); RDW Coefficient of Variation 13.6 % (11.5-14.5); RDW Standard Deviation 46.5 fL (36.4-46.3); Red Blood Count 2.88 M/uL (4.20-5.40); White Blood Count 5.67 K/ul (4.8-10.8)
[2023-07-14 06:51] LABS: Anion Gap 4 (3-11); BUN Creatinine Ratio 20.7 (10-20); Blood Urea Nitrogen 23 mg/dl (6-23); C Reactive Protein < 0.50 mg/dl (0-0.5); Calcium 8.7 mg/dl (8.6-10.3); Carbon Dioxide 32 mmol/L (21-32); Chloride 104 mmol/L (98-107); Creatinine Clr Calc Pharmacy 38.8 ml/min; Est GFR (African American) 55.1 ml/min; Est GFR (Non-African American) 47.5 ml/min; Glucose 87 mg/dl (70-99(Fasting)); Potassium 3.8 mmol/L (3.5-5.1); Sodium 140 mmol/L (136-145)
--- NOTE | 2023-07-14 07:21 | Hospitalist Progress Note ---
Date of Service July 14, 2023 Assessment & Plan (1) Fall: Plan: Ground level fall on 07/12; struck head; on Eliquis; no LOC Patient has been taking additional Bumex this past week due to her leg swelling, likely dehydrated Head, Cervical spine CT, pelvic and hand XR showed no acute fx or bleed Fall precautions Acetaminophen 1000mg scheduled, lidocaine patch voltaren gel for pain control PT/OT consulted (2) CHF (congestive heart failure): Plan: Last echo revealed LVEF at 60 to 65% CXR without pulmonary edema Daily weights Strict I&O monitoring AHA, low salt diet Hold Bumex, spironolactone, K supplementation for now (3) Hypotension: Plan: BP dipped to 91/51 in the ED Ordered small boluses LR, trend BP Hold diuretics (as above) (4) History of atrial fibrillation: Plan: Rate controlled at present Continue amiodarone Note: PM dose of Eliquis given on 07/[address] negative, will retime Eliquis to start 07/13 at 9 PM in the setting of acute head injury Neuro-checks q4h overnight Strict bedrest overnight for 07/12 and reassess in the AM (5) Chronic venous stasis: Plan: Received cefepime in ED, however based on presentation this is not cellulitis No leukocytosis; afebrile CRP and ESR WNL Lactate WNL Blood culture pending Ordered SCDs (6) Anemia: Plan: Hgb 11.2 on arrival trend (7) Bilateral lower extremity edema: Plan: ordered SCDs (8) Near syncope: Plan: Likely 2/2 dehydration (9) Current use of [facility] anticoagulation: Plan: On eliquis for hx Afib -however, given bradycardia will hold amiodarone for now Plan Disposition: Admit to MedSur Telemetry DNR/DNI AHA, Low Sodium diet VTE PPx: On Eliquis , SCDs Admission and Anticipated Discharge Date Admission Date: July 13, 2023 Supervising Physician Co-Signing Physician Notes I personally examined the patient and verified all cramer points of history and exam, discussed case, and agree with decision making with Dr Braswell pain all over from fall no sob legs still swollen vitals noted nad fatigued breathing unlabored no accessory muscles good effort skin no rashes L sided rib dysfunction and paraspinal hypertonicity no focal neuro deficits b/l LE edema dull erythema c/w venous stasis but nontender. fall - dehydration. no serious trauma dehydration - from diuretics for venous stasis. IV fluids, improving venous stasis - stop diuretic. movement/compression. would probably reserve diuretic for clear CHF exac (ie including dyspnea) - will need ongoing education dispo - PT/OT eval and treat. likely to need rehab/SNF for rehab for near future. dtr very concerned about pt at home and getting fatigued on caregiving - offered empathy and also discussed that pt has capacity. will try to help w communication between pt and dtr on situation, ultimately decision is patient's but completely understand dtr's perspective anticoagulated on eliquis otherwise as above Subjective Patient seen at bedside, states she's in pain along her right side attributed to her fall. 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 States she fell while walking to kitchen, does not recall tripping did feel weak before fall. Patient understands all scans so far did not demonstrate any bleed or fractures. Denies any SOB nausea fever headache, describes some constipation last BM yesterday. Patient has chronic abd pain unchanged by fall. She is unsure of her medication regime, it is managed by her daugher who is HAILE. Physical Exam Constitutional: + thin and + frail appearing Eyes: PERRL, conjunctivae normal, anicteric sclerae ENMT: external ear and nose normal, oropharynx normal Respiratory: normal respiratory effort, lungs clear to auscultation Cardiovascular: Rate/Rhythm: regular rate and regular rhythm Extremities: + edema (b/l LE +2) Gastrointestinal (Abdomen): Inspection/Auscultation: abdomen normal to inspection Percussion/Palpation: + abdomen tender (diffuse) and abdomen soft Musculoskeletal: Pain on palpation to right shoulder, hip, elbow, right hand MCP of 3rd 4th 5th digits Skin: no rashes, warm and dry Neurologic: CN's II-XI intact bilaterally Results & Data Results & Data Vital Signs (Past 12 Hours) Vital Signs Temp Pulse Pulse Resp BP BP Pulse Ox 07/13/23 23:45 107/35 L 07/13/23 22:54 105/34 L 07/13/23 22:17 36.3 C L 60 19 90/43 L 98 07/13/23 20:39 18 07/13/23 20:39 36.5 C 57 L 16 113/48 L 98 07/13/23 20:00 53 L 13 96 07/13/23 20:00 104/47 L O2 Del Method 07/13/23 23:45 07/13/23 22:54 07/13/23 22:17 Room Air 07/13/23 20:39 07/13/23 20:39 Room Air 07/13/23 20:00 Room Air 07/13/23 20:00 Resident Activity Tracking Resident Involvement: Resident Care Provided Care Provided: Adult Hospital Medicine (1) Fall Encounter type: initial encounter Qualified Code(s): W19.XXXA - Unspecified fall, initial encounter
[2023-07-14] MEDS: ACETAMINOPHEN 325 MG TAB PO PRN (07:26)
[2023-07-14] MEDS: POLYETHYLENE (MIRALAX) 17 GM PACK PO SCH (09:14)
--- NOTE | 2023-07-14 09:25 | XRay Report ---
XR hand RT min 3V routine CLINICAL HISTORY: fall, swelling. Right hand pain. COMPARISON STUDY: Right hand 11/11/2022. FINDINGS: The bones are osteopenic. Dorsal soft tissue swelling within the wrist. Flexion deformities within the third and fourth DIP joints resulting in suboptimal evaluation. Small ossific densities a t the dorsal aspect of the third and fourth DIP joints are consistent with old fractures. There is an old, healed fracture at the base of the right fifth middle phalanx. Soft tissue swelling within the PIP and DIP joint suggestive of a long-standing degenerative change. There is moderate osteoarthritis within the interphalangeal joints. No acute fracture or dislocation within the right hand. Periartic ular calcification at the second MCP joint again noted. IMPRESSION: 1. No acute fracture or dislocation within the right hand. 2. Old fractures as described above. 3. Osteopenia and degenerative changes. 4. Soft tissue swelling within the wrist. ACT 112: Negative or not required by law. Electronically signed by: Cameron Ruiz M.D. 07/14/2023 9:23 AM
[2023-07-14] MEDS: LIDOCAINE 5% 1 PATCH TD SCH (09:58)
[2023-07-14] MEDS: DICLOFENAC SOD 1% GEL 100 GM TUBE EXT SCH (13:09)
[2023-07-14] MEDS: LACTATED RINGER'S 500 ML IV ONE (14:26)
[2023-07-14] MEDS: ACETAMINOPHEN 500 MG TAB PO SCH (15:37)
--- NOTE | 2023-07-14 16:58 | Billing Data ---
Date of Service July 14, 2023 Coding Level of Care Code 69220 SUB INP/OBS CARE MIN
[2023-07-14] MEDS: APIXABAN 5 MG TABLET PO SCH (19:45)
--- NOTE | 2023-07-15 00:04 | Electrocardiogram Report ---
Test Reason : Blood Pressure : / mmHG Vent. Rate : 066 BPM Atrial Rate : 066 BPM P-R Int : 182 ms QRS Dur : 080 ms QT Int : 460 ms P-R-T Axes : 081 070 073 degrees QTc Int : 482 ms Normal sinus rhythm Prolonged QT When compared with ECG of 25-JUN-2023 13:13, No significant change was found Confirmed by Santino Delacruz ([id number]) on 07/15/2023 12:04:30 AM Referred By: REFERRED SELF Confirmed By:Santino Delacruz
[2023-07-15 06:33] LABS: Basophils # (auto) 0.05 K/uL (0.00-0.20); Basophils % (auto) 0.8 %; Eosinophils # (auto) 0.13 K/uL (0.00-0.50); Eosinophils % (auto) 2.2 %; Hematocrit (blood only) 30.8 % (37.0-47.0); Hemoglobin 10.3 g/dl (12.0-16.0); Immature Granulocytes # (auto) 0.02 K/uL (0.01-0.20); Immature Granulocytes % (auto) 0.3 %; Lymphocytes # (auto) 1.68 K/uL (1.20-3.40); Mean Corpuscular Hemoglobin 32.5 pg (25.0-34.0); Mean Corpuscular Hgb Conc 33.4 g/dL (32.0-36.0); Mean Corpuscular Volume 97.2 fL (80.0-100.0); Mean Platelet Volume 11.3 fL (9.4-12.4); Monocytes # (auto) 0.63 K/uL (0.11-0.59); Monocytes % (auto) 10.5 %; Neutrophils % (auto) 58.2 %; Platelet Count 214 K/uL (130-400); RDW Coefficient of Variation 13.6 % (11.5-14.5); RDW Standard Deviation 49.1 fL (36.4-46.3); Red Blood Count 3.17 M/uL (4.20-5.40); White Blood Count 6.01 K/ul (4.8-10.8)
[2023-07-15 06:54] LABS: Calcium 8.9 mg/dl (8.6-10.3); Creatinine Clr Calc Pharmacy 41.5 ml/min; Est GFR (African American) 57.6 ml/min; Est GFR (Non-African American) 49.7 ml/min; Potassium 3.6 mmol/L (3.5-5.1)
--- NOTE | 2023-07-15 08:11 | Hospitalist Progress Note ---
Date of Service July 15, 2023 Assessment & Plan (1) Fall: Plan: Ground level fall on 07/12; struck head; on Eliquis; no LOC Patient has been taking additional Bumex this past week due to her leg swelling, likely dehydrated Head, Cervical spine CT, pelvic and hand XR showed no acute fx or bleed Fall precautions Acetaminophen 1000mg scheduled, lidocaine patch voltaren gel for pain control PT/OT consulted, recommend inpatient rehab (2) CHF (congestive heart failure): Plan: Last echo revealed LVEF at 60 to 65% CXR without pulmonary edema Daily weights Strict I&O monitoring AHA, low salt diet Hold Bumex, spironolactone, K supplementation for now (3) Hypotension: Plan: BP dipped to 91/51 in the ED Ordered small boluses LR, trend BP Hold diuretics (as above) (4) History of atrial fibrillation: Plan: Rate controlled at present Amiodarone held for bradycardia Note: PM dose of Eliquis given on 07/[address] was negative, will retime Eliquis to start 07/13 at 9 PM in the setting of acute head injury Neuro-checks q4h overnight (5) Chronic venous stasis: Plan: Received cefepime in ED, however based on presentation this is not cellulitis No leukocytosis; afebrile CRP and ESR WNL Lactate WNL Blood culture pending Ordered SCDs (6) Anemia: Plan: Hgb 11.2 on arrival trend (7) Bilateral lower extremity edema: Plan: ordered SCDs (8) Near syncope: Plan: Likely 2/2 dehydration (9) 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 allowed pt to rest. vitals noted nad at rest breathing unlabored no new bruising noted no pallor or icterus fall - dehydration. no serious trauma dehydration - from diuretics for venous stasis. held diuretic, was on IV fluid - improving, hold on further fluids for now venous stasis - stopped diuretic. movement/compression. would probably reserve diuretic for clear CHF exac (ie including dyspnea) - will need ongoing education dispo - PT/OT eval and treat. likely to need rehab/SNF for rehab for near future. dtr very concerned about pt at home and getting fatigued on caregiving - offered empathy and also discussed that pt has capacity. will try to help w communication between pt and dtr on situation, ultimately decision is patient's but completely understand dtr's perspective anticoagulated on eliquis otherwise as above Subjective Patient seen at bedside, calm cooperative. Still has pain along right side, dis likes lidocaine patches voltaren gel. No concerns at this time, awaiting rehab Physical Exam Constitutional: + thin and + frail appearing Eyes: PERRL, conjunctivae normal, anicteric sclerae ENMT: external ear and nose normal, oropharynx normal Respiratory: normal respiratory effort, lungs clear to auscultation Cardiovascular: Rate/Rhythm: regular rate and regular rhythm Extremities: + edema (b/l LE +2) Gastrointestinal (Abdomen): Inspection/Auscultation: abdomen normal to inspection Percussion/Palpation: + abdomen tender (diffuse) and abdomen soft Skin: no rashes, warm and dry Neurologic: CN's II-XI intact bilaterally Results & Data Results & Data Vital Signs (Past 12 Hours) Vital Signs Temp Pulse Pulse Resp BP Pulse Ox O2 Del Method 07/15/23 07:47 58 L 07/15/23 07:18 36.4 C L 64 18 127/61 98 Room Air 07/15/23 03:30 36.5 C 63 18 132/59 L 97 Room Air 07/14/23 23:22 36.3 C L 57 L 18 117/56 L 97 Room Air 07/14/23 23:02 66 Resident Activity Tracking Resident Involvement: Resident Care Provided Care Provided: Adult Hospital Medicine (1) Fall Encounter type: initial encounter Qualified Code(s): W19.XXXA - Unspecified fall, initial encounter
--- NOTE | 2023-07-15 16:04 | Billing Data ---
Date of Service July 15, 2023 Coding Level of Care Code 71314 SUB INP/OBS CARE
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
[2023-07-16 08:41] LABS: Basophils # (auto) 0.05 K/uL (0.00-0.20); Eosinophils # (auto) 0.12 K/uL (0.00-0.50); Eosinophils % (auto) 2.4 %; Hematocrit (blood only) 31.8 % (37.0-47.0); Hemoglobin 10.6 g/dl (12.0-16.0); Immature Granulocytes # (auto) 0.01 K/uL (0.01-0.20); Immature Granulocytes % (auto) 0.2 %; Lymphocytes # (auto) 1.59 K/uL (1.20-3.40); Lymphocytes % (auto) 31.5 %; Mean Corpuscular Hemoglobin 32.2 pg (25.0-34.0); Mean Corpuscular Hgb Conc 33.3 g/dL (32.0-36.0); Mean Corpuscular Volume 96.7 fL (80.0-100.0); Mean Platelet Volume 11.3 fL (9.4-12.4); Monocytes % (auto) 9.9 %; Neutrophils # (auto) 2.77 K/uL (1.40-6.50); Platelet Count 195 K/uL (130-400); RDW Coefficient of Variation 13.4 % (11.5-14.5); RDW Standard Deviation 48.3 fL (36.4-46.3); Red Blood Count 3.29 M/uL (4.20-5.40); White Blood Count 5.04 K/ul (4.8-10.8)
[2023-07-16 09:07] LABS: Calcium 8.7 mg/dl (8.6-10.3)
[2023-07-16 09:12] LABS: BUN Creatinine Ratio 12.8 (10-20); Creatinine Clr Calc Pharmacy 51.2 ml/min; Est GFR (Non-African American) 64.7 ml/min
--- NOTE | 2023-07-16 12:32 | Billing Data ---
Date of Service July 16, 2023 Coding Level of Care Code 63604 SUB INP/OBS CARE MIN
[2023-07-16] MEDS: DICLOFENAC SOD 1% GEL 100 GM TUBE EXT SCH (12:40)
--- NOTE | 2023-07-17 08:54 | Electrocardiogram Report ---
Test Reason : Blood Pressure : / mmHG Vent. Rate : 051 BPM Atrial Rate : 051 BPM P-R Int : 168 ms QRS Dur : 082 ms QT Int : 468 ms P-R-T Axes : 083 074 084 degrees QTc Int : 431 ms Sinus bradycardia Possible Lateral infarct , age undetermined Abnormal ECG When compared with ECG of 13-JUL-2023 15:47, No significant change was found Confirmed by Gus Powers ([id number] on 07/17/2023 8:53:57 AM Referred By: REFERRED SELF Confirmed By:Leon Powers
--- NOTE | 2023-07-17 13:19 | Billing Data ---
Date of Service July 17, 2023 Coding Level of Care Code 48564 IN/OBS DISCH 30 MIN/LESS
--- NOTE | 2023-07-17 13:19 | Discharge Summary ---
Discharge Summary Date of Service July 17, 2023 Notes For Next Care Provider Lower extremity edema seems most consistent with venous stasiswould manage predominantly with compression and immobilization. On extensive review, CHF clinic mostly found situations consistent with venous stasis, so while it is possible she has extremely mild chronic HFpEF, it seems that most (if not all) of her swelling is venous stasisand it appears that many of her acute decompensations of her health have related to dehydration from diuretics. To that end, would hold diuretics and less she clearly shows findings consistent with CHF. Medication Changes From Visit Stopping Bumex Admission HPI Per Admitting Provider Ximena is a 78-year-old female with PMH of CHF, CAD, PAF, A-fib (on Eliquis), depression with anxiety, and sleep apnea. She presented via EMS for a ground- level fall on 07/12. Patient reports that she was walking in her kitchen around 12 PM, and started to feel like she was going to pass out. She then saw a "white light" and fell and struck her rocking chair. Struck right forehead and right ear. No LOC. Patient had difficulty getting up by herself, but was able to call for help using her cell phone. Patient reports that she has been having increased leg swelling and fatigue x 3 days. Patient's daughter (at bedside) helps to manage medications, and reports that the patient took her regular morning medicine today. Last took Eliquis this morning. Of note, the patient was told to take Bumex 2 mg x 2 tablets over the past couple days to assist with the additional leg swelling; she only took 1 tablet this morning. Patient's daughter has been wrapping her mother's legs with Omar bandages instead of compression stockings due to the increased swelling. Patient follows with heart failure clinic. She endorses 8/10 pain in her right forehead at present. She also endorses intermittent pain in her lower extremities bilaterally. She denies smoking, tobacco use, and alcohol use. She denies prior hx of stroke. Patient is hypotensive at 100/57 at time of admission. ED course: Cefepime 2000 mg IV Acetaminophen 1000 mg IV ROS: Patient endorses increased fatigue, fall, weight gain, HILL, right forehead pain, chest pressure when walking, constipation, and leg swelling/erythema/pain. Patient denies fever, chills, dizziness/lightheadedness, changes in vision, facial droop, slurred speech, chest pain, SOB, LEAHY, cough, chest palpitations, abdominal pain, Principal Dx & Hospital Course #1 = Principal Diagnosis (1) Fall: Ground level fall on 07/12; struck head; on Eliquis; no LOC Patient has been taking additional Bumex this past week due to her leg swelling, likely dehydrated Head, Cervical spine CT, pelvic and hand XR showed no acute fx or bleed Acetaminophen 1000mg scheduled, voltaren gel for pain control ongoing PT/OT. Patient prefers to go back home after rehab, she does have capacity and is able to make her own decisions; at the same time, her daughter (who has been her main caregiver) notes that she is beyond what she feels she c an safely take care of, and also seems to be suffering from significant caregiver burnout. I discussed this openly with the patient and asked discussed that the patient herself still has the right to make her decisions, but that she should consider her living situation and her daughter's status as she makes her decisions. Also, while her labs do not reflect it, she appears clinically at the bedside consistent with at least mild protein/calorie malnutritionand certainly an element of deconditioning/malnutrition would add to her weaknesswould encourage p.o. intake and follow her nutrition. (2) CHF (congestive heart failure): Last echo revealed LVEF at 60 to 65% I am fairly doubtful that she has chronic HFpEFshe has had this as a diagnosis, I am fairly doubtful that she has chronic HFpEFshe has had this as a diagnosis, but most of her findings seem consistent with venous stasis, and in review of an extensive review done by the CHF clinic, very little (if any) of her findings have ever been consistent with true congestive heart failurerather venous stasis. (3) Hypotension: Was due to dehydrationresolved (4) History of atrial fibrillation: rate controlled, anticoagulated (5) Chronic venous stasis: initially concern about cellulitis, but exam/labs/overall clinical picture was really only consistent with venous stasis related skin changes, not infectionshe has been off of antibiotics since hospital day 1 with no worsening. Diuretics have clearly been more harm than benefit in trying to manage her venous stasis related swellingwill try to manage the swelling with movement/muscle contraction, compression, and elevation. (6) Anemia: Has overall been stablemost recent hemoglobin being 10.6periodic outpatient follow-up (7) Near syncope: Likely 2/2 dehydration (8) Current use of care home anticoagulation: On eliquis for hx Afib Discharge Exam awake and alert frail appearing somewhat cachecticconsistent with probably at least mild protein calorie malnutrition, no distress. HEENT normocephalic atraumatic mucous membranes moist. Breathing unlabored no accessory muscle use good effort. Skin shows no pallor or icterus. Updated Medication List Medication Instructions Recorded Confirmed Type docusate sodium 100 mg capsule 200 mg PO BID 04/15/18 07/13/23 History calcium carbonate (Calcium 600) 1,200 mg PO QAM 06/08/19 07/13/23 History cholecalciferol (vitamin D3) 25 1,000 unit PO QAM 06/08/19 07/13/23 History mcg (1,000 unit) capsule (Vitamin D3) nitroglycerin 0.4 mg sublingual 0.4 mg sublingual Q5M PRN chest 09/25/21 07/13/23 Rx tablet (Nitrostat) pain #20 tabs apixaban 5 mg tablet (Eliquis) 5 mg PO BID #180 tabs 04/29/22 07/13/23 Rx acetaminophen 325 mg tablet 650 mg (2 x 325 mg) PO Q4H PRN 05/30/22 07/13/23 Rx pain #60 tabs estradiol 0.075 mg/24 hr weekly 0.075 mg transdermal WK 07/28/22 07/13/23 Hi story transdermal patch ascorbic acid (vitamin C) 500 mg 500 mg PO QAM 09/03/22 07/13/23 History tablet (Vitamin C) cyanocobalamin (vitamin B-12) 500 500 mcg PO QAM 09/03/22 07/13/23 History mcg tablet (Vitamin B-12) fluticasone propionate 50 2 spray NA DAILY PRN Sinus Symptoms 10/27/22 07/13/23 History mcg/actuation nasal spray,suspension pantoprazole 40 mg tablet,delayed 40 mg PO DAILYBB #90 tabs 01/06/23 07/13/23 Rx release buspirone 5 mg tablet 5 mg PO BID #90 tabs 02/06/23 07/13/23 Rx rosuvastatin 40 mg tablet (Crestor) 40 mg PO HS #90 tabs 02/06/23 07/13/23 Rx amiodarone 200 mg tablet 100 mg (1/2 x 200 mg) PO HS #45 03/31/23 07/13/23 Rx tabs sodium chloride 0.65 % nasal spray 1 spray NA TID PRN Congestion 04/03/23 07/13/23 History aerosol (Saline Mist) spironolactone 25 mg tablet 25 mg PO DAILY #30 tabs 05/12/23 07/13/23 Rx memantine 10 mg tablet 10 mg PO HS #30 tabs 06/22/23 07/13/23 Rx mirtazapine 30 mg tablet 30 mg PO HS 30 days #30 tabs 06/22/23 07/13/23 Rx acetaminophen 500 mg tablet 1,000 mg (2 x 500 mg) PO Q8H PRN 07/17/23 Rx (Tylenol Extra Strength) pain #20 tabs diclofenac sodium 1 % topical gel 2 g EXT QID #100 grams 07/17/23 Rx (Voltaren Arthritis Pain) polyethylene glycol 3350 17 gram 17 g PO DAILY #30 ea 07/17/23 Rx oral powder packet (Miralax) Hospital Stay Data Consultations 07/13/23 18:13 ED Decision to Admit Stat Diagnostic Imagining Performed 07/13/23 15:23 CT cervical spine wo con Stat 07/13/23 15:24 CT head/brain wo con Stat Pending Results Patient Have Any Pending Studies at Discharge: No Discharge Instructions Given to Patient (Per Discharging Provider) fall/weaknesspatient presented with syncope that appears to have been mostly due to dehydration, largely related to diuretics. Fortunately she did not show any significant trauma, but unfortunately she does have multiple areas of "bumps and bruises"mobilization, gentle OMT, Tylenol, and Voltaren gel have been helpful lower extremity venous stasisshe has lower extremity edema that seems to be predominantly, if not entirely, venous stasis. Shows absolutely no evidence of decompensated CHF during this admission, and on review of her heart failure clinic visit, while it is possible that she might have had stray episodes of pulmonary edema at times, it sounds like she almost entirely (if not entirely) has lower extremity swelling from venous stasis and not from CHF. Obviously if she has any dyspnea/pulmonary edema I would absolutely treat appropriately with diuretics, but given that most, if not all, of her swelling appears to be venous stasis related, and she has suffered consequences from overdiuresis on several occasions, I have discontinued her loop diuretic, so that it has to be a conscious decision if it needs to be reinstituted based on her clinical status. Thank you! Total Time Total Time Spent Total Time Spent (In Minutes): <30 Supervising Physician Co-Signing Physician Notes fall - dehydration. no serious trauma dehydration - from diuretics for venous stasis. held diuretic, was on IV fluid - Overall seems to have improved. P.o. intake. venous stasis - stopped diuretic. movement/compression. would probably reserve diuretic for clear CHF exac (she might have chronic HFpEF but this is doubtful and, if present, clearly quite mild) - will need ongoing education dispo - PT/OT eval and treat. likely to need rehab/SNF for rehab for near future. Discussed with patient openly and plainly that right now SNF would be rehab emphasis only, but also discussed that if she felt it her best choice, her daughter does seem to have a reasonable perspective that it is getting harder for her to be safe and well taking care of at home given her frailty and comorbidities; but again emphasized that this would be the patient's choice, not a choice that any of us could make for her. anticoagulated on eliquis otherwise as above
== END 2023-07-17 14:00 | DRG 641 ==
LOC: ED 14:00 → 2N 18:52 → SUATTDRO 18:52 → 2N 20:03